=== PATIENT | male | born 1940 | race Caucasian/White ===

== ENCOUNTER 2020-01-14 14:59 | Emergency (ER) | payer MEDICARE, SELFPAY ==
--- NOTE | 2020-01-14 15:07 | XR_ITS ---
EXAMINATION: XR CHEST CLINICAL INFORMATION: Cough COMPARISON: Chest radiographs 10/24/2017, 08/05/2017. TECHNIQUE: Portable upright AP view of the chest was obtained. FINDINGS: There are postsurgical changes similar to prior studies with right upper zone surgical clips, fine left upper zone chain mamta, and bilateral linear scarring. There is also left atrial appendage clip, mediastinal clips, and sternotomy wires. There is scarring versus disc atelectasis left lateral base. Some mild coarsening of the interstitial markings is again seen. There is no lobar or segmental airspace consolidation or definite groundglass opacity. The heart is normal in size. The vascularity is normal. The hilar and mediastinal contours are unremarkable. No acute bony abnormality. XR/XR chest 1V IMPRESSION: 1. Postsurgical changes. Linear scar versus disc atelectasis left lateral base. 2. No airspace consolidation or definite groundglass opacity.
[2020-01-14 15:19] VITALS: BP 134/82; PULSE 70; RESP 17; TEMP 37.4; O2SAT 96; BMI 28.3
--- NOTE | 2020-01-14 15:54 | ED_ITS ---
HPI - URI/Sore Throat General Chief Complaint: Upper Respiratory Symptoms Stated Complaint: covid swab Time Seen by Provider: 01/14/20 15:07 Source: patient Mode of arrival: ambulatory Limitations: no limitations History of Present Illness HPI Narrative: 79-year-old with above history presenting today with complaint of states he has had a mild congestion / cough and had episode of GI upset yesterday for which he had a Tele visit visit with his primary care doctor and advised to come to get a COVID test MD elicited complaint: cough Onset (ago): day(s) Consistency: intermittent Severity: mild Description of mucous: yellow Exacerbating factors: nothing Relieving factors: nothing Associated symptoms: denies other symptoms Treatments prior to arrival: other ( Mucinex feels better) Related Data Previous Rx's Medication Instructions Recorded Xarelto 20 mg tablet 20 mg PO QPM #30 tab NS 12/30/19 benzonatate [Tessalon Perles] 100 mg PO BID PRN #14 cap 01/14/20 doxycycline monohydrate 100 mg PO BID 7 Days #14 cap 01/14/20 Allergies Allergy/AdvReac Type Severity Reaction Status Date / Time No Known Allergies Allergy Unverified 12/10/19 14:57 Review of Systems Review of Systems: Constitutional: No Weight loss, No Fever, No Chills, No Night Sweats, No Fatigue, No Malaise ENT/Mouth: No Hearing loss, No Ear Pain, No Nasal Congestion, No Sinus Pain, No Hoarseness, No sore throat, No Rhinorrhea, No Swallowing Difficulty Eyes: No Eye Pain, No Swelling, No Redness, No Foreign Body, No Discharge, No Vision Changes Cardiovascular: No Chest Pain, No SOB, No Dyspnea on Exertion, No Orthopnea, No Edema, No Palpitations Respiratory: + Cough productive with some green phlegm, No Wheezing, No Smoke Exposure, No Dyspnea Gastrointestinal: No Nausea, No Vomiting, No Diarrhea, No Constipation, No abdominal Pain, No Hematochezia, No Melena Genitourinary: no irregular bleeding, No Dysuria, No Urinary Frequency, No Hematuria, No Urinary Incontinence, No Urgency, No Flank Pain, No Urinary Flow Changes, No Hesitancy Musculoskeletal: No joint pain, No Myalgias, No Joint Swelling Skin: No Skin Lesions, No rash Neuro: No Weakness, No Numbness, No Paresthesias, No Loss of Consciousness, No Dizziness, No Headache Psych: No Social Issues Heme/Lymph: No Bruising, No Bleeding,No Lymphadenopathy Endocrine: No Polyuria, No Polydipsia, No Temperature Intolerance Yes all other systems are reviewed and are negative [facility] Past Medical History Attestation statement: The following information was validated with the patient. Surgical History (Updated 01/14/20 @ 15:24 by Melissa Anderson) H/O heart surgery History of hip surgery History of lobectomy of lung Social History Social History Smoking Status: Never smoker Use of substances other than those prescribed or required for medical reasons: No Advance Directives: No Advance Directives Information Provided: No Physical Exam Vital Signs: Vital Signs: Vital Signs Temp Pulse Resp BP Pulse Ox 01/14/20 15:19 99.3 F 70 17 134/82 96 Body Mass Index 28.3 reviewed Const: General: cooperative and healthy appearing; No acute distress or intoxicated appearing Nutritional Appearance: average body habitus Orientation/consciousness: patient oriented x3 HENMT: Head: Yes normal to inspection Ears: hearing grossly normal bilaterally Eyes: General: appearance normal, both eyes and all related structures Visual Inman: normal visual inman by confrontation Neck: Neck: Yes normal visual inspection and No tender Thyroid: Thyroid normal Chest: Chest palpation & inspection: normal inspection of the chest Resp: Effort & Inspection: normal respiratory effort Auscultation: clear to auscultation bilaterally Cardio: Jugular venous distension: no JVD Rhythm: regular rhythm GI: Inspection: Yes normal to inspection Percussion: Yes normal to percussion Auscultation: normal bowel sounds : General: Yes no CVA tenderness Back/Spine/Pelvis: Back: no CVA tenderness Skin: General skin exam: no rashes or lesions noted Neuro: General: patient oriented x3 Extrem: General: Yes normal to inspection Course Course Course Narrative: chest x-ray negative for acute consolidation COVID-19 test pending Empiric doxy Discharge precaution return follow-up instructions. MDM - URI/Sore Throat Differential Diagnosis Differential diagnosis: Likely upper respiratory infection, viral infection and bronchitis; Unlikely croup, otitis media, sinusitis, influenza and pharyngitis Medical Records Attestation: I reviewed the patient's medical records. Imaging Data Chest x-ray: Radiologist's impression: [address] [address] XRay Report Signed Patient: Anthony Goodman SRMR#: [id number] : 2Acct:[id number] Age/Sex: 79 / MADM Date: 01/14/20 Loc: HO.ED Attending Dr: Ordering Physician: Chase Chapman NP Date of Service: 01/14/20 Procedure(s): XR chest 1V Accession Number(s): [id number] cc: Chase Chapman LADLE OPERATOR~ EXAMINATION: XR CHEST CLINICAL INFORMATION: Cough COMPARISON: Chest radiographs 10/24/2017, 08/05/2017. TECHNIQUE: Portable upright AP view of the chest was obtained. FINDINGS: There are postsurgical changes similar to prior studies with right upper zone surgical clips, fine left upper zone chain mamta, and bilateral linear scarring. There is also left atrial appendage clip, mediastinal clips, and sternotomy wires. There is scarring versus disc atelectasis left lateral base. Some mild coarsening of the interstitial markings is again seen. There is no lobar or segmental airspace consolidation or definite groundglass opacity. The heart is normal in size. The vascularity is normal. The hilar and mediastinal contours are unremarkable. No acute bony abnormality. XR/XR chest 1V IMPRESSION: 1. Postsurgical changes. Linear scar versus disc atelectasis left lateral base. 2. No airspace consolidation or definite groundglass opacity. Dictated By:YEN CHEEK MD Signed By:<Electronically signed by YEN CHEEK MD in OV>01/14/20 1549 DD/ 1507 TD/TT: Bearing Grinder: FALL Discharge Plan Discharge Clinical Impression: Upper respiratory infection Patient Disposition: Home, Self-Care Instructions: Upper Respiratory Infection (ED) Additional Instructions: your chest x-ray did not show any signs of acute infection / pneumonia Your COVID test is pending Take her antibiotic as prescribed Drink plenty fluids Isolates/social distancing Return if any chest pain, shortness of breath, fever, nausea, vomiting, abdominal pain Otherwise we will call you with her COVID-19 test results if negative or positive.... Thank you Prescriptions: New doxycycline monohydrate 100 mg capsule 100 mg PO BID 7 Days Qty: 14 RF: 0 benzonatate [Tessalon Perles] 100 mg capsule 100 mg PO BID PRN (Reason: cough) Qty: 14 RF: 0 No Action Xarelto 20 mg tablet 20 mg PO QPM Qty: 30 RF: 6 Referrals: Jordan Gabriel MD [Primary Care Provider] - 1 week
== END 2020-01-14 16:35 | disposition home or self-care (01) ==
PROVIDERS: Nurse Practitioner Primary Care; Emergency Provider Emergency Medicine; PCP Internal Medicine
DX: R05 Cough (principal); Z20.828 Contact with and (suspected) exposure to other viral communicable diseases; Z79.899 Other long term (current) drug therapy
CPT/HCPCS: 71045; 87635; 99283

== ENCOUNTER → 2020-02-01 08:13 | Outpatient (REF) | payer MEDICARE, SELFPAY ==
--- NOTE | 2020-02-01 08:18 | CA_ITS ---
Transthoracic Echocardiogram Patient (Last, First, Middle): Anthony Goodman C Gender: Male Date of : 1940 Age: 79 Procedure Date: 02/01/2020 Procedure Type: Transthoracic Echocardiogram Location: OP Height: 185.42 cm Weight: 89.81 kg BSA: 2.14 m2 Heart Rate: bpm BP: 122 / 60 mmHg Social Work Assistant: Referring MD: Darryl Padilla MD Curb Attendant: Darryl Padilla MD Symptoms: HTN,DM,PAF, S/P CABG Study Quality: Good ECG Rhythm: Sinus Conclusions: - 1. Normal LV systolic function with mild LVH 2. Mildly dilated left atrium 3. Normal cardiac valvular Doppler 4. No evidence of pericardial effusion Findings Left Ventricle Normal left ventricular size and systolic function. There is mildly increased left ventricular wall thickness. The visually estimated ejection fraction is between 60-65%. There is paradoxical septal motion consistent with post operative status. Diastolic function is normal for age. Right Ventricle Normal right ventricular cavity size and systolic function. Atria The left atrium is likely dilated. There is no evidence of interatrial shunt. The right atrium is normal in size. Aortic Valve Normal aortic valve structure and function. There is no aortic valve stenosis. There is no aortic valve regurgitation. Mitral Valve There is mild anterior and posterior mitral leaflet thickening. There is mild mitral annular calcification. There is trace mitral valve regurgitation. There is no mitral valve stenosis. Pulmonic Valve The pulmonic valve was not well visualized. Tricuspid Valve Likely normal tricuspid valve structure and function. Tricuspid regurgitation envelope is inadequate for calculation of right ventricular systolic pressure. Great Vessels All visible segments of the aorta are normal in size. The pulmonary artery was not well visualized. Venous The inferior vena cava is normal in size and collapses greater than 50% with inspiration. Pericardium/Pleural There is no evidence of pericardial effusion. Prior Study Comparison No significant change compared to prior study dated: 02/11/2018. Measurements 2D Linear Measurements IVSd: 1.27 0.6-0.9/0.6-1.0 cm LVIDd: 4.33 3.9-5.3/4.2-5.9 cm LVIDd Index: 2.02 2.4-3.2/2.2-3.1 cm/m2 LVIDs: 2.77 2.0-3.6 cm LVPWd: 1.23 0.7-1.1 cm Ao Root: 3.90 2.1-3.5 cm LA Diam: 4.50 2.7-3.8/3.0-4.0 cm LAIDs Index: 2.10 1.5-2.3 cm/m2 LV Mass: 246.93 67-162/88-224 g LV Mass Index: 115.39 43-95/49-115 g/m2 LVOT Diam: 2.40 3.0+(-)1.3 cm Mitral Valve MV Pk E: 0.73 MV PK A: 0.52 MV Decel Time: 184.00 E/A: 1.40 E'Lateral: 15.30 E'Medial: 6.77 E/E' Med: 10.80 E/E' Lat: 4.80 PHT: 54.00 MVA PHT: 4.07 Decel Stone: 3.97 Aortic Valve AoV Pk Andrew: 1.35 AoV Mn Andrew: 0.86 AoV VTI: 0.28 AoV Pk Grad: 7.00 Aov Mn Grad: 4.00 CHRISTA Cont.VTI: 3.50 LVOT LVOT Pk Andrew: 1.02 LVOT Mn Andrew: 0.67 LVOT VTI: 0.22 LVOT Pk Grad: 4.00 LVOT Mn Grad: 2.00 LVOT Diam: 2.40 LVOT Area: 4.52 Diastolic Function MV Pk E: 0.73 MV Pk A: 0.52 E/A: 1.40 E'Medial: 6.77 E/E' Med: 10.80 E' Laterial: 15.30 E/E' Lat: 4.80 Great Vessels Aorta Ao Root-2D: 3.90 2.0-3.7 cm Pulmonary Valve PV Pk Andrew: 0.98 Peak PV Grad: 4.00 Updated in Other Vendor System with Status of Final Darryl Padilla MD electronically signed on 02/02/2020 11:59:06 AM with status of Final
== END ==
LOC: HO.CARD 08:13
PROVIDERS: Visit Provider Internal Medicine Cardiovascular Disease
DX: I25.10 Atherosclerotic heart disease of native coronary artery without angina pectoris (principal); I25.84 Coronary atherosclerosis due to calcified coronary lesion; I10 Essential (primary) hypertension; I48.0 Paroxysmal atrial fibrillation; E11.9 Type 2 diabetes mellitus without complications; Z95.1 Presence of aortocoronary bypass graft
CPT/HCPCS: 93306

== ENCOUNTER 2020-02-04 09:31 | Outpatient (REF) | payer MEDICARE, SELFPAY ==
[2020-02-04 10:18] LABS: Hematocrit 31.7 % (42-52); Hemoglobin 10.2 g/dl (14.0-18.0); Mean Corpuscular HGB Conc 32.2 g/dl (31.0-36.0); Mean Corpuscular Hemoglobin 28.4 pg (27.0-33.0); Mean Corpuscular Volume 88.3 fL (80-98); Mean Platelet Volume 9.8 fL (9.4-12.4); Platelet Count 311 X10*3/uL (160-400); Red Blood Count 3.59 X10*6/uL (4.60-5.80); Red Cell Distribution Width 14.8 % (11.0-16.0); White Blood Count 5.5 X10*3/uL (4.8-10.8)
[2020-02-04 11:25] LABS: Anion Gap 11 (12-20); Blood Urea Nitrogen 29 mg/dL (9-16); Calcium 9.2 mg/dL (8.4-10.2); Carbon Dioxide 24 mmol/L (22-29); Chloride 104 mmol/L (96-108); Estimated Glomerular Filt Rate 55; Glucose Random 118 mg/dL (60-115); Sodium 134 mmol/L (135-145)
== END 2020-02-04 09:32 | disposition home or self-care (01) ==
LOC: HO.LAB 09:31
PROVIDERS: PCP Internal Medicine; Visit Provider Internal Medicine Cardiovascular Disease
DX: I25.10 Atherosclerotic heart disease of native coronary artery without angina pectoris (principal); I25.84 Coronary atherosclerosis due to calcified coronary lesion
CPT/HCPCS: 36415; 80048; 85027

== ENCOUNTER → 2020-02-11 08:51 | Outpatient (BNVA) | payer MEDICARE, SELFPAY | PROVIDERS: PCP Internal Medicine; Visit Provider Internal Medicine Cardiovascular Disease | DX: I48.0 Paroxysmal atrial fibrillation (principal); I25.10 Atherosclerotic heart disease of native coronary artery without angina pectoris; I10 Essential (primary) hypertension; R25.2 Cramp and spasm; Z79.01 Long term (current) use of anticoagulants; Z79.899 Other long term (current) drug therapy | CPT/HCPCS: 99212 ==

== ENCOUNTER 2020-02-23 09:53 | Day surgery (SDC) | payer MEDICARE, SELFPAY ==
[2020-02-17 10:48] VITALS: BMI 27.3
--- NOTE | 2020-02-22 14:14 | P.CONAN_ITS ---
HPI - Anesthesia Eval Consult details Narrative: 80yo M for QI [facility] Past Medical History Medical History CAD (coronary artery disease) COPD (chronic obstructive pulmonary disease) Diabetes mellitus GERD (gastroesophageal reflux disease) History of cancer HTN (hypertension) Hyperlipidemia Paroxysmal atrial fibrillation Surgical History Surgical History H/O heart surgery History of arthroplasty of left hip History of lobectomy of lung Social History Social History Smoking Status: Never smoker Meds Allergies Allergy/AdvReac Type Severity Reaction Status Date / Time No Known Allergies Allergy Verified 02/17/20 10:42 Home Medications Medication Instructions Recorded Confirmed Type atorvastatin 80 mg tablet 80 mg PO QPM 02/11/20 02/17/20 History ferrous sulfate 325 mg (65 mg 325 mg PO QPM 02/11/20 02/17/20 History iron) tablet metformin 500 mg tablet 500 mg PO BID 02/11/20 02/17/20 History albuterol sulfate [Ventolin HFA] 2 puff INHALATION Q4-6H PRN 02/17/20 02/17/20 History cholecalciferol (vitamin D3) 25 mcg PO DAILY 02/17/20 02/17/20 History [Vitamin D3] lisinopril 10 mg PO QPM 02/17/20 02/17/20 History multivitamin 1 tab PO DAILY 02/17/20 02/17/20 History Exam Exam Date and Time: February 22, 2020 1414 Height,Weight and Vital Signs: Height 6 ft Weight 91.626 kg Pertinent Lab Results Pertinent Lab Results: Laboratory Tests 02/04/20 02/04/20 09:40 09:40 WBC 5.5 Hgb 10.2 L Hct 31.7 L Plt Count 311 Sodium 134 L Potassium 5.0 Chloride 104 Carbon Dioxide 24 BUN 29 H Creatinine 1.27 Narrative Narrative: ECHO 02/01/20: 1. Normal LV systolic function with mild LVH 2. Mildly dilated left atrium 3. Normal cardiac valvular Doppler 4. No evidence of pericardial effusion EKG 11/2019: NSR with junctional escape Assessment and Plan Assessment Anesthesia Assessment: Chart Reviewed
--- NOTE | 2020-02-23 08:53 | CA_ITS ---
See Transesophageal Echo (QI) physician report MTDD
[2020-02-23 10:10] LABS: Glucose, Whole Blood 82 mg/dL (60-115)
[2020-02-23] MEDS: Lactated Ringers 1,000 ML 50 ML IVCONT (10:26)
[2020-02-23 10:27] VITALS: BP 161/38; PULSE 62; RESP 18; TEMP 36.2; O2SAT 97
[2020-02-23 12:14] VITALS: BP 114/47; PULSE 46; RESP 15; TEMP 36.2; O2SAT 100
[2020-02-23 12:29] VITALS: BP 140/57; PULSE 50; RESP 16; O2SAT 99
[2020-02-23 12:44] VITALS: BP 143/60; PULSE 51; RESP 16; O2SAT 99
--- NOTE | 2020-02-23 16:24 | HO.TEE ---
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 Patient was explained the risks, benefits, alternatives and 2nd opinion to procedure. He agreed to proceed with the procedure Anesthesia:: general Details of Procedure:: after obtaining full informed consent patient brought to the OR suite in a fasting condition. Patient was then given GA by Anesthesia Team. Continuously monitored during this time. A QI probe was then introduced into the gastric and then into the esophageal cavity. Images obtained in the standard format. Patient tolerated the procedure well. Complications:: None Conclusions:: 1. normal LV systolic function with at least grade 2 diastolic dysfunction 2. Biatrial enlargement, left greater than right with suggestion of left atrial myopathy 3. 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 No intracardiac thrombi, masses or vegetations 5. No significant abnormalities of cardiac valvular Doppler 6. No intra cardiac shunting 7. Normal pericardium 8. Significant atherosclerotic changes in the descending thoracic aorta. Recommendations:: Based upon above finding, patient will continue current oral anticoagulant therapy as he remains at risk for stroke due to residual left atrial appendage pouch. This was discussed with both patient patient's over the phone. Will discuss with Watchman team at [facility] to see if he would be a candidate for Watchman device placement. Findings Left Ventricle:: left ventricle is of normal size. Left ventricular systolic function is normal with LVEF of 60 65%. There are no left ventricular clots or masses noted. There are no significant regional wall motion abnormalities noted. The LV diastolic function is consistent with at least grade 2 diastolic dysfunction. Right Ventricle:: Right ventricle is of normal size with normal contractile function. There is no evidence of ventricular septal defect Atria:: left atrium is at least moderately enlarged. 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 The left upper and lower as well as right upper and lower pulmonary vein drain normally into the left atrium. There is a distinct left atrial pouch noted with markedly reduced atrial ejection velocity. There are no clots seen within this pouch. There is mild smoke formation seen in the left atrium, otherwise no clots or masses seen within the left atrium. Right atrium is also moderately enlarged. The right atrial appendage is small and there is no clear clot formation seen in the right atrium. The IVC drains normally into the right atrium. There is significant lipomatous hypertrophy of the interatrial septum, with no evidence of atrial shunting. Mitral Valve:: Mitral valve is mildly thickened. There are no masses, vegetations or clots attached to the mitral valve. There is trace to mild mitral regurgitation noticed. There is no evidence of mitral stenosis. There is mild mitral annular calcification noted Aortic Valve: aortic valve is trileaflet, minimally thickened. The aortic valve discussion is within normal limits. There are no masses, vegetations or clots attached to the aortic valve. There is no significant aortic stenosis or aortic regurgitation. They inter valvular fibrosa is within normal limits. Tricuspid Valve:: Tricuspid while is of normal morphology with mild tricuspid regurgitation. There are no masses or vegetations that she had a tricuspid valve. Calculated RV systolic pressure appeared to be within normal limits. Pulmonic Valve:: Pulmonic valve was not well visualized. There is no significant regurgitation noted. Aorta:: The ascending thoracic aorta is of normal size. There is mild atherosclerotic changes noted. The descending and transverse thoracic aorta also of normal size with significant thickened atherosclerotic finding noted in the descending thoracic aorta. Pericardium:: Pericardium appears to be within normal limits.
== END 2020-02-23 13:32 | disposition home or self-care (01) ==
PROVIDERS: PCP Internal Medicine; Visit Provider Internal Medicine Cardiovascular Disease
PROC: (CPT 93312; principal; 2020-02-23 11:10)
DX: I48.0 Paroxysmal atrial fibrillation (principal); I25.10 Atherosclerotic heart disease of native coronary artery without angina pectoris; Z95.1 Presence of aortocoronary bypass graft; R25.2 Cramp and spasm; E11.9 Type 2 diabetes mellitus without complications; I10 Essential (primary) hypertension; J44.9 Chronic obstructive pulmonary disease, unspecified; Z79.01 Long term (current) use of anticoagulants; Z79.899 Other long term (current) drug therapy
CPT/HCPCS: 82947; 93312

== ENCOUNTER 2020-02-25 09:47 | Outpatient (REF) | payer MEDICARE, SELFPAY ==
--- NOTE | 2020-02-25 09:52 | US_ITS ---
EXAMINATION: BILATERAL LOWER EXTREMITY DUPLEX DOPPLER ARTERIAL EVALUATION CLINICAL INFORMATION: Bilateral cramping/spasm. COMPARISON: None TECHNIQUE: Real-time ultrasound and Doppler techniques (integrating B-mode 2D vascular images, Doppler spectral analysis and color flow Doppler imaging) were utilized to interrogate the lower extremities bilaterally. FINDINGS: RIGHT LOWER EXTREMITY: Calcified plaque is seen throughout the vessels. Common femoral artery demonstrates normal triphasic waveform with peak systolic velocity of 191 cm/s. The profunda femoral artery demonstrates a triphasic waveform with peak systolic velocity of 157 cm/s. The proximal superficial femoral artery demonstrates a triphasic waveform with peak systolic velocity of 163 cm/s. The mid superficial femoral artery demonstrates a biphasic waveform with peak systolic velocity of 126 cm/s. The distal superficial femoral artery demonstrates a biphasic waveform with peak systolic velocity of 90 cm/s. Popliteal artery has a biphasic waveform with peak systolic velocity of 99 cm/s. Posterior tibial artery has a biphasic waveform with peak systolic velocity of 116 cm/s. LEFT LOWER EXTREMITY: Calcified plaque is present throughout the vessels. Common femoral artery has a triphasic waveform with peak systolic velocity of 314 cm/s. The profunda femoral artery has a triphasic waveform with peak systolic velocity of 111 cm/s with spectral broadening. The proximal superficial femoral artery has a biphasic waveform with peak systolic velocity of 266 cm/s. The mid superficial femoral artery has a biphasic waveform with peak systolic velocity of 119 cm/s. The distal superficial femoral artery has a biphasic waveform with peak systolic velocity of 112 cm/s. The popliteal artery has a triphasic waveform with peak systolic velocity of 105 cm/s. Posterior tibial artery has a biphasic waveform with peak systolic velocity of 22 cm/s. US/US arterial duplex LE BI IMPRESSION: Atherosclerotic disease with calcified plaque bilaterally. Findings suspicious for hemodynamically significant inflow stenoses within the iliac vessels causing elevation of velocities within the common femoral arteries left greater than right. Hemodynamically significant stenosis at the left common femoral artery bifurcation. For better evaluation of the above findings if intervention is being considered, CT or MR angiography would be of help.
== END 2020-02-25 09:48 | disposition home or self-care (01) ==
LOC: HO.US 09:47
PROVIDERS: Visit Provider Internal Medicine Cardiovascular Disease
DX: I25.10 Atherosclerotic heart disease of native coronary artery without angina pectoris (principal); R25.2 Cramp and spasm
CPT/HCPCS: 93925

== ENCOUNTER → 2020-03-11 08:53 | Outpatient (BNVA) | payer MEDICARE, SELFPAY | PROVIDERS: PCP Internal Medicine; Visit Provider Internal Medicine Cardiovascular Disease | DX: I48.0 Paroxysmal atrial fibrillation (principal); I25.10 Atherosclerotic heart disease of native coronary artery without angina pectoris; I73.9 Peripheral vascular disease, unspecified | CPT/HCPCS: 99212 ==

== ENCOUNTER → 2020-04-11 09:42 | Outpatient (BNVA) | payer MEDICARE, SELFPAY | PROVIDERS: PCP Internal Medicine; Visit Provider Internal Medicine Cardiovascular Disease | DX: D64.9 Anemia, unspecified (principal); I48.0 Paroxysmal atrial fibrillation; I25.10 Atherosclerotic heart disease of native coronary artery without angina pectoris | CPT/HCPCS: Q3014 ==

== ENCOUNTER 2020-05-10 10:14 | Outpatient (REF) | payer MEDICARE, SELFPAY ==
[2020-05-10 10:26] LABS: MANUAL DIFF FLAG NO
[2020-05-10 10:40] LABS: Basophils Percent Auto 0.5 % (0-2); Eosinophils Absolute Auto 0.4 X10*3/uL (0.0-0.4); Eosinophils Percent Auto 5.1 % (0-4); Hematocrit 33.8 % (42-52); Hemoglobin 10.5 g/dl (14.0-18.0); Imm Gran Abs Auto 0.01 X10*3/uL (0.00-0.03); Imm Gran Pct Auto 0.1 % (0.0-0.4); Lymphocytes Absolute Auto 1.9 X10*3/uL (1.2-4.9); Lymphocytes Percent Auto 26.2 % (20-40); Mean Corpuscular HGB Conc 31.1 g/dl (31.0-36.0); Mean Corpuscular Hemoglobin 27.3 pg (27.0-33.0); Mean Corpuscular Volume 87.8 fL (80-98); Mean Platelet Volume 10.2 fL (9.4-12.4); Monocytes Absolute Auto 0.7 X10*3/uL (0.1-1.2); Monocytes Percent Auto 9.2 % (2-11); Neutrophils Absolute Auto 4.3 X10*3/uL (2.0-8.3); Neutrophils Percent Auto 58.9 % (45-73); Platelet Count 325 X10*3/uL (160-400); Red Blood Count 3.85 X10*6/uL (4.60-5.80); Red Cell Distribution Width 14.7 % (11.0-16.0); White Blood Count 7.4 X10*3/uL (4.8-10.8)
[2020-05-10 11:10] LABS: Cholesterol 124 mg/dL; Glucose Fasting 95 mg/dL (60-99); HDL Cholesterol 45 mg/dL; Iron 54 mcg/dL (45-160); LDL Cholesterol Calculated 64 mg/dl; Percent Iron Saturation 17 % (15-50); Total Iron Binding Capacity 321 mcg/dL (228-428); Triglycerides 75 mg/dL; Unsaturated Iron Binding 267 ug/dL
[2020-05-10 11:15] LABS: Estimated Average Glucose 120 mg/dL; Hemoglobin A1c % 5.8 %
[2020-05-10 11:16] LABS: Reflex LDLD? No
== END 2020-05-10 10:15 | disposition home or self-care (01) ==
LOC: HO.LNP 10:14
PROVIDERS: PCP Internal Medicine; Visit Provider Internal Medicine
DX: E11.9 Type 2 diabetes mellitus without complications (principal); E78.00 Pure hypercholesterolemia, unspecified; D50.9 Iron deficiency anemia, unspecified
CPT/HCPCS: 80061; 82947; 83036; 83540; 85025

== ENCOUNTER 2020-08-11 09:17 | Outpatient (REF) | payer MEDICARE, SELFPAY ==
[2020-08-11 09:20] LABS: MANUAL DIFF FLAG NO
[2020-08-11 09:32] LABS: Basophils Absolute Auto 0.1 X10*3/uL (0.0-0.2); Basophils Percent Auto 0.9 % (0-2); Eosinophils Absolute Auto 0.4 X10*3/uL (0.0-0.4); Hemoglobin 9.6 g/dl (14.0-18.0); Imm Gran Abs Auto 0.02 X10*3/uL (0.00-0.03); Imm Gran Pct Auto 0.3 % (0.0-0.4); Lymphocytes Absolute Auto 1.6 X10*3/uL (1.2-4.9); Lymphocytes Percent Auto 23.5 % (20-40); Mean Corpuscular Hemoglobin 27.1 pg (27.0-33.0); Mean Corpuscular Volume 87.6 fL (80-98); Mean Platelet Volume 10.2 fL (9.4-12.4); Monocytes Absolute Auto 0.7 X10*3/uL (0.1-1.2); Monocytes Percent Auto 10.5 % (2-11); Neutrophils Percent Auto 58.8 % (45-73); Platelet Count 305 X10*3/uL (160-400); Red Blood Count 3.54 X10*6/uL (4.60-5.80); White Blood Count 6.9 X10*3/uL (4.8-10.8)
[2020-08-11 10:04] LABS: Iron 38 mcg/dL (45-160); Percent Iron Saturation 14 % (15-50); Total Iron Binding Capacity 280 mcg/dL (228-428); Unsaturated Iron Binding 242 ug/dL
== END 2020-08-11 09:18 | disposition home or self-care (01) ==
LOC: HO.LNP 09:17
PROVIDERS: Visit Provider Internal Medicine
DX: Z13.89 Encounter for screening for other disorder (principal)
CPT/HCPCS: 83540; 85025

== ENCOUNTER 2020-08-13 21:48 | Inpatient (IN) | payer MEDICARE, SELFPAY ==
--- NOTE | ~2020-08-13 | MR_ITS ---
EXAMINATION: MR ABDOMEN WITHOUT CONTRAST CLINICAL INFORMATION: Gallstone pancreatitis COMPARISON: CT from 08/14/2020 TECHNIQUE: MR abdomen is performed without gadolinium contrast. Heavily T2-weighted sequence performed for MRCP acquisition. FINDINGS: LUNG BASES: Minimal right basilar atelectasis noted. Small hiatal hernia suspected. LIVER, GALLBLADDER, AND BILIARY TREE: The liver is normal in size, smooth in contour, and normal in signal. Mild central intrahepatic biliary ductal dilatation. Multiple T2 bright lesions are seen about the hepatic parenchyma. For instance, along the posterior margin of the right lobe. The lack of IV contrast limits full evaluation. These could represent cysts and/or hemangiomas. Multiple stones are seen in the gallbladder lumen with sludge also present. As seen on the previous CT, there is wall thickening and edema. Irregularity at the gallbladder fundal wall. The common bile duct is at the upper limit of normal measuring 0.7 cm. No definite ductal filling defect identified on MRCP imaging. The focus of low signal on series 6 image 20 within the lower common bile duct is likely artifactual as this is not repeated on other series. PANCREAS: The pancreatic parenchyma is homogenous. No pancreatic ductal dilatation. No significant surrounding inflammatory changes. Minimal stranding noted adjacent to the duodenum. There is a duodenal diverticulum extending off of the second portion of the duodenum. SPLEEN: Unremarkable. ADRENAL GLANDS: Unremarkable. KIDNEYS AND URETERS: The kidneys are normal in size and shape. No hydronephrosis. No perinephric stranding. GASTROINTESTINAL TRACT: No obstruction. No ascites. Duodenal diverticulum off of the second portion of the duodenum with an air-fluid level. This measures 2.8 cm in AP dimension. This abuts the common bile duct. ABDOMINAL WALL: No significant hernia is appreciated. LYMPH NODES: No lymphadenopathy. VASCULAR: Normal caliber aorta. OSSEOUS STRUCTURES: Marrow signal normal. MR/MR MRCP IMPRESSION: Cholelithiasis with inflammatory changes of the gallbladder, concerning for acute cholecystitis. Minimal inflammatory stranding near the duodenum, with the pancreas appearing otherwise normal. This could be associated with pancreatitis/duodenitis. Wall the bile ducts are mildly prominent, there is no ductal filling defect identified.
--- NOTE | ~2020-08-13 | XR_ITS ---
EXAMINATION: XR CHEST CLINICAL INFORMATION: Cough COMPARISON: 01/14/2020 TECHNIQUE: Frontal view of the chest was obtained. FINDINGS: There are new airspace opacities throughout the left midlung and left lung base and possibly in the right midlung as well. Right perihilar surgical clips and an atrial appendage clip are again noted. Sternotomy wires and mediastinal vascular clips are noted. The cardiac silhouette is similar to the prior study. Chronic blunting of the right costophrenic angle. No pneumothorax. XR/XR chest 1V IMPRESSION: New airspace opacities throughout the left midlung and left lung base, possibly in the right midlung as well, concerning for multifocal infection.
--- NOTE | ~2020-08-13 | US_ITS ---
EXAMINATION: US ABDOMEN LIMITED CLINICAL INFORMATION: Abdominal pain right upper quadrant. COMPARISON: None TECHNIQUE: Real-time imaging of the right upper quadrant abdominal viscera. FINDINGS: PANCREAS: The visualized proximal portion of the pancreas is unremarkable. The distal portion is obscured secondary to overlying bowel gas. LIVER: The liver is normal in size. The liver contour is normal. Parenchymal echogenicity is normal. No focal hepatic lesion. There is no intrahepatic biliary duct dilatation seen. GALLBLADDER: Gallstones are identified. Gallbladder wall thickness is at the upper limits of normal. No pericholecystic fluid is seen. Right upper quadrant tenderness was reported during the exam. COMMON BILE DUCT: Normal in caliber measuring 0.6 cm in diameter. RIGHT KIDNEY: No hydronephrosis. No renal calculi or focal parenchymal lesions. The kidney measures 10.4 cm in maximum dimension. FREE FLUID: None. US/US abdomen limited IMPRESSION: Cholelithiasis. Though no significant gallbladder wall thickening is present, right upper quadrant tenderness was reported during the exam. If there is clinical concern for acute cholecystitis, assessment with a nuclear medicine hepatobiliary scan may be helpful.
--- NOTE | ~2020-08-13 | CT_ITS ---
EXAMINATION: CT CHEST WITHOUT CONTRAST CLINICAL INFORMATION: Cough, x-ray multifocal opacities COMPARISON: Chest x-ray 08/13/2020 TECHNIQUE: Multidetector volumetric CT imaging of the chest was done. Axial MIP volume rendering provided. Sagittal and coronal reformatted images were obtained. This CT examination was performed using dose optimization techniques as appropriate, variously including the following: *Automated exposure control *Adjustment of mA and/or kV according to patient size (this includes techniques or standardized protocols for targeted exams where dose is matched to indication/reason for exam; i.e. extremities or head) *Use of iterative reconstruction technique DLP: 394 mGy-cm FINDINGS: LUNGS: Status post right upper lobectomy. Suture lines noted in the left upper lobe, with some adjacent curvilinear opacity which is unchanged from prior CT of 09/01/2019. Regions of peripheral opacity in the lower lobes are most suggestive of atelectasis. No additional consolidation seen. Some debris is noted in the trachea. MEDIASTINUM: The visualized thyroid gland is unremarkable. There are subcentimeter mediastinal lymph nodes within the range of normal variation. Cardiac size is within normal limits; no pericardial effusion. There is atherosclerotic calcification along the aorta. Left atrial appendage clip is noted. Coronary artery calcifications are present. Patient is status post CABG. PLEURA: There is no pleural effusion. No pleural mass or thickening. AXILLA: No lymphadenopathy. UPPER ABDOMEN: Cholelithiasis is noted. OSSEOUS STRUCTURES: Status post sternotomy. Degenerative changes are noted in the spine. CT/CT chest wo con IMPRESSION: 1. Mild peripheral bibasilar opacities most suggestive of atelectasis. No additional consolidation. 2. Postoperative changes from prior right upper lobectomy and partial left upper lobe resection, similar in appearance to 09/01/2019. 3. Cholelithiasis, with mild gallbladder wall prominence. This will be better assessed on abdominal ultrasound.
--- NOTE | ~2020-08-13 | CT_ITS ---
EXAMINATION: CT ABDOMEN AND PELVIS WITHOUT CONTRAST CLINICAL INFORMATION: Right upper quadrant pain COMPARISON: Ultrasound and CT chest from earlier today TECHNIQUE: Multidetector volumetric imaging was performed from the superior aspect of the liver through the pubic symphysis. Sagittal and coronal reformatted images were obtained on the technologist's workstation. This CT examination was performed using dose optimization techniques as appropriate, variously including the following: *Automated exposure control *Adjustment of mA and/or kV according to patient size (this includes techniques or standardized protocols for targeted exams where dose is matched to indication/reason for exam; i.e. extremities or head) *Use of iterative reconstruction technique DLP: 686 mGy-cm FINDINGS: LUNG BASES: The visualized lung bases are unremarkable. LIVER, GALLBLADDER, AND BILIARY TREE: The liver is normal in size, shape, and attenuation. No biliary ductal dilatation is present. Redemonstrated cholelithiasis with prominent gallbladder wall. PANCREAS: There is mild stranding adjacent to the pancreas and proximal duodenum. SPLEEN: Unremarkable. ADRENAL GLANDS: Unremarkable. KIDNEYS AND URETERS: The kidneys are normal in size, shape, and attenuation. Vascular calcification is noted in the renal tobi. No hydronephrosis, hydroureter, or obstructing calculi seen. Nonspecific bilateral perinephric stranding. BLADDER: Unremarkable. GASTROINTESTINAL TRACT: Colonic diverticulosis is noted. The small and large bowel are otherwise unremarkable without evidence of obstruction or pericolonic inflammatory change. There is prominence of submucosal fat within some segments of the colon suggesting sequelae of prior inflammation. The appendix is unremarkable. No free fluid or free air is seen. ABDOMINAL WALL: Bilateral fat-containing inguinal hernias. LYMPH NODES: Normal. VASCULAR: There is atherosclerotic calcification along the aorta and iliac arteries. PELVIC VISCERA: The prostate gland is enlarged, measuring 5.4 cm in transverse diameter. OSSEOUS STRUCTURES: Partially visualized left total hip arthroplasty hardware. Degenerative changes are noted in the spine. CT/CT abdomen pelvis wo con IMPRESSION: 1. Mild stranding adjacent to the pancreas and proximal duodenum, potentially secondary to pancreatitis. Correlation with laboratory values is recommended. 2. Cholelithiasis with prominent gallbladder wall. As previously noted, if there is clinical concern for acute cholecystitis this could be further assessed with nuclear medicine hepatobiliary scan.
[2020-08-13 21:59] VITALS: BP 128/45; BP 128/46; PULSE 84; PULSE 85; RESP 18; TEMP 37.8; O2SAT 93; O2SAT 94; BMI 31.6
--- NOTE | 2020-08-13 22:05 | ECG_ITS ---
Test Reason : WEAKNESS Blood Pressure : / mmHG Vent. Rate : 078 BPM Atrial Rate : 080 BPM P-R Int : 000 ms QRS Dur : 094 ms QT Int : 418 ms P-R-T Axes : 000 069 059 degrees QTc Int : 476 ms Normal sinus rhythm Incomplete right bundle branch block Abnormal ECG When compared with ECG of 25-OCT-2017 15:17, Incomplete right bundle branch block is now present Referred By: Edilia Fitzgerald Electronically Signed By:LAURA MARRUFO MD
--- NOTE | 2020-08-13 22:05 | ED.WEAKNESS ---
HPI - Weakness General Chief complaint: Weakness Stated complaint: WEAKNESS Time Seen by Provider: 08/13/20 22:04 Source: patient Mode of arrival: EMS History of Present Illness HPI Narrative: This is a 80-year-old male with significant past medical history of hypertension, diabetes, COPD, and CAD who presents via EMS after stating that he when out to dinner with his they had ordered some drinks he began to feel ill and he describes it as ?just not feeling well? and then went home where he had nausea with multiple episodes of dry heaving and identifies sharp/crampy lower pelvic pain that was not radiating into either lower extremity and also had a couple of large diarrhea bowel movements without blood. Patient is currently on Xarelto. He states he now feels a lot better and had been in his usual state of health before this onset. He denies any past abdominal surgical history. Related Data Home Medications Medication Instructions Recorded Confirmed atorvastatin 1 tab PO DAILY 08/14/20 08/14/20 lisinopril 1 tab PO DAILY 08/14/20 08/14/20 metformin 1 tab PO BID 08/14/20 08/14/20 rivaroxaban [Xarelto] 1 tab PO QPM 08/14/20 08/14/20 Allergies Allergy/AdvReac Type Severity Reaction Status Date / Time No Known Allergies Allergy Verified 02/17/20 10:42 Review of Systems Review of Systems: Pertinent positives and negatives as stated in HPI 10 point review of systems is otherwise negative. [facility] Past Medical History Source: nursing notes reviewed Medical History CAD (coronary artery disease) COPD (chronic obstructive pulmonary disease) Diabetes mellitus GERD (gastroesophageal reflux disease) History of cancer HTN (hypertension) Hyperlipidemia Paroxysmal atrial fibrillation PVD (peripheral vascular disease) Surgical History H/O heart surgery History of arthroplasty of left hip History of lobectomy of lung Social History Social History Alcohol intake: never Smoking Status: Never smoker Use of substances other than those prescribed or required for medical reasons: No Advance Directives: No Advance Directives Information Provided: Yes Physical Exam Vital Signs: Vital Signs: Last Vital Signs Temp 100.4 F 08/14/20 00:00 Pulse 74 08/14/20 02:00 Resp 18 08/14/20 02:00 BP 139/89 08/14/20 02:00 Pulse Ox 100 08/14/20 02:00 Body Mass Index 31.6 VITAL SIGNS: Reviewed. GENERAL: Well developed, well nourished, in no acute distress. HEAD: Normocephalic/atraumatic, EYES: PERRLA, EOMI NOSE: Nares patent bilateral OROPHARYNX: no oral lesions noted, posterior pharynx clear LUNGS: Normal breath sounds. No adventitious sounds or accessory muscle use. SpO2<94> CARDIOVASCULAR: Regular rate and rhythm without noted murmurs, no JVD or lower extremity edema. ABDOMEN: Soft, non-tender, non-distended with bowel sounds, symmetrical femoral/popliteal/DP/PT pulses MUSCULOSKELETAL: No tenderness, deformities, or effusions noted on gross inspection. EXTREMITIES: No cyanosis, clubbing or edema. SKIN: Inspection of the skin reveals no rashes NEUROLOGIC: Alert and oriented x 4. Strength and sensation to light touch were grossly intact x 4. Course Course Course Narrative: 80-year-old male with history and clinical presentation suggestive of possible diverticulitis versus gastroenteritis. Patient received sepsis fluids as well as antibiotics. On review of all investigations patient has sepsis with possible hepatobiliary etiology given LFTs and significant leukocytosis. Although a chest x-ray initially read as multifocal opacities follow-up CT scan of the chest without contrast suggesting this is primarily atelectasis. This case was discussed with the inpatient hospitalist team who is agreeable for admission and further workup and evaluation. MDM - Weakness Lab Data Result diagrams: 08/13/20 23:06 08/13/20 23:06 Labs: Lab Results 08/13/20 08/13/20 08/13/20 Range/Units 22:18 23:06 23:06 WBC 18.1 H (4.8-10.8) X10*3/uL RBC 3.74 L (4.60-5.80) X10*6/uL Hgb 10.3 L (14.0-18.0) g/dl Hct 31.7 L (42-52) % MCV 84.8 (80-98) fL MCH 27.5 (27.0-33.0) pg MCHC 32.5 (31.0-36.0) g/dl RDW 15.1 (11.0-16.0) % Plt Count 322 (160-400) X10*3/uL MPV 9.7 (9.4-12.4) fL Immature Gran % (Auto) 0.4 (0.0-0.4) % Neut % (Auto) 86.8 H (45-73) % Lymph % (Auto) 2.5 L (20-40) % Caldwell % (Auto) 10.0 (2-11) % Eos % (Auto) 0.1 (0-4) % Baso % (Auto) 0.2 (0-2) % Lymph # (Auto) 0.5 L (1.2-4.9) X10*3/uL Caldwell # (Auto) 1.8 H (0.1-1.2) X10*3/uL Eos # (Auto) 0.0 (0.0-0.4) X10*3/uL Baso # (Auto) 0.0 (0.0-0.2) X10*3/uL Abs Immat Gran (auto) 0.07 H (0.00-0.03) X10*3/uL Absolute Neuts (auto) 15.7 H (2.0-8.3) X10*3/uL Absolute Nucleated RBC 0.000 (0.0-0.012) X10*3/uL Nucleated RBC % (auto) 0.0 (0.0-0.2) /100WBC Smear Tech's Comments VERIFIED PT (10.8-13.0) SEC INR (0.9-1.1) Sodium 140 (135-145) mmol/L Potassium 3.9 (3.3-5.1) mmol/L Chloride 105 (96-108) mmol/L Carbon Dioxide 20 L (22-29) mmol/L Anion Gap 19 (12-20) BUN 31 H (9-16) mg/dL Creatinine 2.43 H (0.5-1.4) mg/dL Estim Creat Clear Calc 26.1 Estimated GFR 26 POC Glucose 88 (60-115) mg/dL Random Glucose 96 (60-115) mg/dL Lactic Acid (0.5-2.0) mmol/L Calcium 9.4 (8.4-10.2) mg/dL Total Bilirubin 2.9 H (0.0-1.0) mg/dL AST 434 H (5-37) U/L ALT 443 H (0-40) U/L Alkaline Phosphatase 224 H (39-117) U/L B-Natriuretic Peptide (<100) pg/mL Total Protein 6.8 (6.5-8.0) g/dL Albumin 4.2 (3.5-5.0) g/dL COVID-19 (LILI) (Negative) COVID-19 Clin Com 08/13/20 08/13/20 08/13/20 Range/Units 23:06 23:06 23:06 WBC (4.8-10.8) X10*3/uL RBC (4.60-5.80) X10*6/uL Hgb (14.0-18.0) g/dl Hct (42-52) % MCV (80-98) fL MCH (27.0-33.0) pg MCHC (31.0-36.0) g/dl RDW (11.0-16.0) % Plt Count (160-400) X10*3/uL MPV (9.4-12.4) fL Immature Gran % (Auto) (0.0-0.4) % Neut % (Auto) (45-73) % Lymph % (Auto) (20-40) % Caldwell % (Auto) (2-11) % Eos % (Auto) (0-4) % Baso % (Auto) (0-2) % Lymph # (Auto) (1.2-4.9) X10*3/uL Caldwell # (Auto) (0.1-1.2) X10*3/uL Eos # (Auto) (0.0-0.4) X10*3/uL Baso # (Auto) (0.0-0.2) X10*3/uL Abs Immat Gran (auto) (0.00-0.03) X10*3/uL Absolute Neuts (auto) (2.0-8.3) X10*3/uL Absolute Nucleated RBC (0.0-0.012) X10*3/uL Nucleated RBC % (auto) (0.0-0.2) /100WBC Smear Tech's Comments PT 16.8 H (10.8-13.0) SEC INR 1.4 H (0.9-1.1) Sodium (135-145) mmol/L Potassium (3.3-5.1) mmol/L Chloride (96-108) mmol/L Carbon Dioxide (22-29) mmol/L Anion Gap (12-20) BUN (9-16) mg/dL Creatinine (0.5-1.4) mg/dL Estim Creat Clear Calc Estimated GFR POC Glucose (60-115) mg/dL Random Glucose (60-115) mg/dL Lactic Acid 1.7 (0.5-2.0) mmol/L Calcium (8.4-10.2) mg/dL Total Bilirubin (0.0-1.0) mg/dL AST (5-37) U/L ALT (0-40) U/L Alkaline Phosphatase (39-117) U/L B-Natriuretic Peptide 83 (<100) pg/mL Total Protein (6.5-8.0) g/dL Albumin (3.5-5.0) g/dL COVID-19 (LILI) (Negative) COVID-19 Clin Com 08/13/20 Range/Units 23:39 WBC (4.8-10.8) X10*3/uL RBC (4.60-5.80) X10*6/uL Hgb (14.0-18.0) g/dl Hct (42-52) % MCV (80-98) fL MCH (27.0-33.0) pg MCHC (31.0-36.0) g/dl RDW (11.0-16.0) % Plt Count (160-400) X10*3/uL MPV (9.4-12.4) fL Immature Gran % (Auto) (0.0-0.4) % Neut % (Auto) (45-73) % Lymph % (Auto) (20-40) % Caldwell % (Auto) (2-11) % Eos % (Auto) (0-4) % Baso % (Auto) (0-2) % Lymph # (Auto) (1.2-4.9) X10*3/uL Caldwell # (Auto) (0.1-1.2) X10*3/uL Eos # (Auto) (0.0-0.4) X10*3/uL Baso # (Auto) (0.0-0.2) X10*3/uL Abs Immat Gran (auto) (0.00-0.03) X10*3/uL Absolute Neuts (auto) (2.0-8.3) X10*3/uL Absolute Nucleated RBC (0.0-0.012) X10*3/uL Nucleated RBC % (auto) (0.0-0.2) /100WBC Smear Tech's Comments PT (10.8-13.0) SEC INR (0.9-1.1) Sodium (135-145) mmol/L Potassium (3.3-5.1) mmol/L Chloride (96-108) mmol/L Carbon Dioxide (22-29) mmol/L Anion Gap (12-20) BUN (9-16) mg/dL Creatinine (0.5-1.4) mg/dL Estim Creat Clear Calc Estimated GFR POC Glucose (60-115) mg/dL Random Glucose (60-115) mg/dL Lactic Acid (0.5-2.0) mmol/L Calcium (8.4-10.2) mg/dL Total Bilirubin (0.0-1.0) mg/dL AST (5-37) U/L ALT (0-40) U/L Alkaline Phosphatase (39-117) U/L B-Natriuretic Peptide (<100) pg/mL Total Protein (6.5-8.0) g/dL Albumin (3.5-5.0) g/dL COVID-19 (LILI) Negative (Negative) COVID-19 Clin Com See Note ECG Data Attestation: I personally reviewed and interpreted this ECG as follows: Prior ECG tracings: available for review (10/25/2017 no acute changes on comparison) Interpretation: Normal sinus rhythm, HR-77, no evidence of acute ischemia, VT/QRS/QTC are within normal limits. Discharge Plan Discharge Clinical Impression: Sepsis, Abdominal pain, GARTH (acute kidney injury) Patient Disposition: Admitted As Inpatient Prescriptions: No Action metformin 500 mg tablet 1 tab PO BID RF: 0 atorvastatin 80 mg tablet 1 tab PO DAILY RF: 0 lisinopril 10 mg tablet 1 tab PO DAILY RF: 0 Xarelto 20 mg tablet 1 tab PO QPM RF: 0
[2020-08-13 22:23] LABS: Glucose, Whole Blood 88 mg/dL (60-115)
[2020-08-13 23:17] LABS: Basophils Percent Auto 0.2 % (0-2); Eosinophils Percent Auto 0.1 % (0-4); Hematocrit 31.7 % (42-52); Hemoglobin 10.3 g/dl (14.0-18.0); Imm Gran Abs Auto 0.07 X10*3/uL (0.00-0.03); Imm Gran Pct Auto 0.4 % (0.0-0.4); Lymphocytes Absolute Auto 0.5 X10*3/uL (1.2-4.9); Lymphocytes Percent Auto 2.5 % (20-40); MANUAL DIFF FLAG SCAN; Mean Corpuscular HGB Conc 32.5 g/dl (31.0-36.0); Mean Corpuscular Hemoglobin 27.5 pg (27.0-33.0); Mean Corpuscular Volume 84.8 fL (80-98); Mean Platelet Volume 9.7 fL (9.4-12.4); Monocytes Absolute Auto 1.8 X10*3/uL (0.1-1.2); Neutrophils Absolute Auto 15.7 X10*3/uL (2.0-8.3); Neutrophils Percent Auto 86.8 % (45-73); Platelet Count 322 X10*3/uL (160-400); Red Blood Count 3.74 X10*6/uL (4.60-5.80); Red Cell Distribution Width 15.1 % (11.0-16.0); SCAN SMEAR FLAG 1; White Blood Count 18.1 X10*3/uL (4.8-10.8)
[2020-08-13 23:24] LABS: INTERNATIONAL NORM RATIO 1.4 (0.9-1.1); Prothrombin Time 16.8 SEC (10.8-13.0)
[2020-08-13 23:35] LABS: Lactic Acid 1.7 mmol/L (0.5-2.0)
[2020-08-13 23:43] LABS: B Type Natriuretic Peptide 83 pg/mL (<100)
[2020-08-13 23:47] LABS: SLIDE REVIEW VERIFIED
[2020-08-13] MEDS: Piperacillin Sodium/Tazobactam 3.375 GM in 0.9 % Sodium Chloride 50 ML IV (23:48)
[2020-08-13 23:49] VITALS: BP 90/40; PULSE 65; RESP 16; TEMP 36.7; O2SAT 94
[2020-08-14] VITALS (9 sets, daily range): BP systolic 104–166; BP diastolic 48–89; PULSE 58–74; RESP 16–18; TEMP 37.2–38; O2SAT 95–100
[2020-08-14 00:26] LABS: COVID-19 Test Negative (Negative); IDNOW Serial# 9DD0AD1C
[2020-08-14 00:42] LABS: Alanine Aminotransferase 443 U/L (0-40); Albumin Level 4.2 g/dL (3.5-5.0); Alkaline Phosphatase 224 U/L (39-117); Anion Gap 19 (12-20); Aspartate Amino Transferase 434 U/L (5-37); Bilirubin Total 2.9 mg/dL (0.0-1.0); Blood Urea Nitrogen 31 mg/dL (9-16); Calcium 9.4 mg/dL (8.4-10.2); Carbon Dioxide 20 mmol/L (22-29); Chloride 105 mmol/L (96-108); Creatinine Clr Calc Pharmacy 26.1; Estimated Glomerular Filt Rate 26; Glucose Random 96 mg/dL (60-115); Potassium 3.9 mmol/L (3.3-5.1); Sodium 140 mmol/L (135-145); Total Protein 6.8 g/dL (6.5-8.0)
[2020-08-14] MEDS: cefTRIAXone sodium 1 GM in 0.9 % Sodium Chloride 50 ML IV (04:09)
--- NOTE | 2020-08-14 04:10 | PC.NURSE ---
Report taken from veronica Farr RN resuming care. Pt found sitting upright in bed, resting. Pt reports no pain at this time, offers no complaints. Pt aware of pending urine sample, provided with a bedside urinal. Rocephin infusing per MAR. VSS at this time. Pt aware of plan to admit. Call mitchell within reach, continue to monitor.
[2020-08-14] MEDS: metroNIDAZOLE/NS 500 MG/100 ML PIGGYBACK 100 MG IV ×3 (05:08→20:32)
--- NOTE | 2020-08-14 06:16 | PM.IMHP ---
History of Present Illness Date of Service: 08/13/20 Chief Complaint: abdominal pain This is a 80-year-old male with past medical history of CAD, COPD, diabetes, GERD, HTN, HLD, paroxysmal AFib, PVD who presents the hospital complaints of abdominal pain. Patient reports that he was at dinner when all of a sudden he started having abdominal pain, mostly generalized, went to the bathroom, had a large BM, followed by multiple episodes of watery nonbloody diarrhea. Patient had nausea as well, according to the who was present at the time patient also had significant diaphoresis, was clammy, weak, checked his temperature which was normal.. Patient started having chills, appeared very pale. She checked his blood pressure which was 100/50s. Patient reports the abdominal pain is general but worse in the right lower quadrant, pain was 10/10, nonradiating. He was significantly weak and decided to come to the hospital. Patient denies any cough, shortness of breath, no chest pain, no sputum production. He has nausea with no vomiting, no previous similar episode. No urinary symptoms and no lower extremity edema. On arrival to the ED patient is hemodynamically stable with BP of 90/40 otherwise normalized with fluids. Temperature of a 100? point 1 initially that increased to 100.4. Labs are significant for WBC count of 18.1, hemoglobin of 10.3, PT of 16.8, INR of 1.4, BUN of 31, creatinine of 2.43 with a baseline of 1.27, total bili of 2.9, AST of 434, ALT of 443, alk-phos of 224, BNP of 83, Initial chest x-ray showed new airspace opacities throughout the left mid lung and left lung base, possibly in the right mid lung as well concerning for multifocal infection, This was followed by chest CT which showed mild peripheral bibasilar opacities with most suggestive of a to lactase this with no additional consolidation. Cholelithiasis with mild gallbladder wall prominence, this will be better assessed on abdominal ultrasound. Patient underwent abdominal ultrasound which showed cholelithiasis though no significant gallbladder wall thickening. Right upper quadrant tenderness was present during the exam. Patient then had abdominal CT which showed mild stranding adjacent to the left pancreas and proximal duodenum, potentially secondary to pancreatitis. Past medical history as below uncomfortable patient This case was discussed with surgical team by ED and patient deferred to medical service Review of Systems Review of Systems: Yes all other systems are reviewed and are negative [facility] Medical History CAD (coronary artery disease) COPD (chronic obstructive pulmonary disease) Diabetes mellitus GERD (gastroesophageal reflux disease) History of cancer HTN (hypertension) Hyperlipidemia Paroxysmal atrial fibrillation PVD (peripheral vascular disease) Surgical History H/O heart surgery History of arthroplasty of left hip History of lobectomy of lung Social History Alcohol intake: never Smoking Status: Never smoker Use of substances other than those prescribed or required for medical reasons: No Advance Directives: No Advance Directives Information Provided: Yes Meds Allergies Allergy/AdvReac Type Severity Reaction Status Date / Time No Known Allergies Allergy Verified 02/17/20 10:42 Active Medications: Current Medications Generic Name Dose Route Start Last Admin Trade Name Freq PRN Reason Stop Dose Admin Acetaminophen 650 mg 08/14/20 03:41 Acetaminophen 325 Mg Tablet PO Q6H PRN Pain, Mild (Pain Scale 1-3) Al Hydroxide/Mg Hydroxide 30 ml 08/14/20 03:41 Magnesium Hydrox/Alum Hydrox 30 Ml Oral.Susp PO Q4H PRN Heartburn/Nausea Atorvastatin Calcium 80 mg 08/14/20 09:00 Atorvastatin Calcium 80 Mg Tablet PO DAILY [facility]BRE[facility] Ceftriaxone Sodium 1 gm/ 50 mls @ 100 mls/hr 08/14/20 04:00 08/14/20 04:46 Sodium Chloride IV Infused Q24H [facility] Infusion Metronidazole 500 mg in 100 mls @ 100 mls/hr 08/14/20 05:00 08/14/20 05:08 Flagyl IV 100 mls/hr Q8H [facility] Administration Lisinopril 10 mg 08/14/20 09:00 Lisinopril 10 Mg Tablet PO DAILY [facility] Protocol Ondansetron HCl 4 mg 08/14/20 03:41 Ondansetron Hcl 4 Mg/2 Ml Vial IVPUSH Q8H PRN Nausea and Vomiting Oxycodone HCl 5 mg 08/14/20 03:41 Oxycodone Hcl Immed Release 5 Mg Tablet PO Q6H PRN Pain, Severe (Pain Scale 7-10) Rivaroxaban 20 mg 08/14/20 17:00 Rivaroxaban 20 Mg Tablet PO DAILY@1700 [facility] Sodium Chloride 3 ml 08/14/20 08:00 0.9 % Sodium Chloride Flush 3 Ml Syringe IVFLUSH QSHIFT [facility] Home Medications Medication Instructions Recorded Confirmed Last Taken Type atorvastatin 1 tab PO DAILY 08/14/20 08/14/20 Unknown History lisinopril 1 tab PO DAILY 08/14/20 08/14/20 Unknown History metformin 1 tab PO BID 08/14/20 08/14/20 Unknown History rivaroxaban [Xarelto] 1 tab PO QPM 08/14/20 08/14/20 Unknown History Physical Exam Vital Signs and Narrative: Vital Signs: Last Vital Signs Temp 100.4 F 08/14/20 00:00 Pulse 60 08/14/20 04:09 Resp 16 08/14/20 04:09 BP 131/51 L 08/14/20 04:09 Pulse Ox 96 08/14/20 04:09 Body Mass Index 31.6 Const: General: cooperative and no acute distress Orientation/consciousness: patient oriented x3 Eyes: General: appearance normal, both eyes and all related structures Resp: Effort & Inspection: normal respiratory effort and able to speak in complete sentences Cardio: Rate: regular rate Rhythm: regular rhythm GI: Other: Epigastric and right upper quadrant abdominal tenderness Palpation (GI): Soft to palpation Auscultation: normal bowel sounds Skin: General skin exam: no rashes or lesions noted Neuro: General: patient oriented x3 Cognition (Neuro): normal cognition Extrem: General: Yes normal to inspection and Yes no pedal edema Results Labs CBC and Chem 7: 08/13/20 23:06 08/13/20 23:06 Labs: Laboratory Results - last 24 hr 08/13/20 08/13/20 08/13/20 22:18 23:06 23:06 MCV 84.8 MCH 27.5 MCHC 32.5 RDW 15.1 Plt Count 322 MPV 9.7 Immature Gran % (Auto) 0.4 Neut % (Auto) 86.8 H Lymph % (Auto) 2.5 L [place] % (Auto) 10.0 Eos % (Auto) 0.1 Baso % (Auto) 0.2 Lymph # (Auto) 0.5 L [place] # (Auto) 1.8 H Eos # (Auto) 0.0 Baso # (Auto) 0.0 Abs Immat Gran (auto) 0.07 H Absolute Neuts (auto) 15.7 H Absolute Nucleated RBC 0.000 Nucleated RBC % (auto) 0.0 Smear Tech's Comments VERIFIED PT INR Anion Gap 19 Estim Creat Clear Calc 26.1 Estimated GFR 26 POC Glucose 88 Random Glucose 96 Lactic Acid Calcium 9.4 Total Bilirubin 2.9 H AST 434 H ALT 443 H Alkaline Phosphatase 224 H B-Natriuretic Peptide Total Protein 6.8 Albumin 4.2 COVID-19 ([facility]) COVID-19 Clin Com 08/13/20 08/13/20 08/13/20 23:06 23:06 23:06 MCV MCH MCHC RDW Plt Count MPV Immature Gran % (Auto) Neut % (Auto) Lymph % (Auto) [place] % (Auto) Eos % (Auto) Baso % (Auto) Lymph # (Auto) [place] # (Auto) Eos # (Auto) Baso # (Auto) Abs Immat Gran (auto) Absolute Neuts (auto) Absolute Nucleated RBC Nucleated RBC % (auto) Smear Tech's Comments PT 16.8 H INR 1.4 H Anion Gap Estim Creat Clear Calc Estimated GFR POC Glucose Random Glucose Lactic Acid 1.7 Calcium Total Bilirubin AST ALT Alkaline Phosphatase B-Natriuretic Peptide 83 Total Protein Albumin COVID-19 ([facility]ILI) COVID-19 [employer] Com 08/13/20 23:39 MCV MCH MCHC RDW Plt Count MPV Immature Gran % (Auto) Neut % (Auto) Lymph % (Auto) [place] % (Auto) Eos % (Auto) Baso % (Auto) Lymph # (Auto) [place] # (Auto) Eos # (Auto) Baso # (Auto) Abs Immat Gran (auto) Absolute Neuts (auto) Absolute Nucleated RBC Nucleated RBC % (auto) Smear Tech's Comments PT INR Anion Gap Estim Creat Clear Calc Estimated GFR POC Glucose Random Glucose Lactic Acid Calcium Total Bilirubin AST ALT Alkaline Phosphatase B-Natriuretic Peptide Total Protein Albumin COVID-19 ([facility]ILI) Negative COVID-19 Clin Com See Note Imaging Radiologist's Impressions: Impressions Chest X-Ray 08/13/20 22:05 IMPRESSION: New airspace opacities throughout the left midlung and left lung base, possibly in the right midlung as well, concerning for multifocal infection. Abdomen Ultrasound 08/14/20 00:45 IMPRESSION: Cholelithiasis. Though no significant gallbladder wall thickening is present, right upper quadrant tenderness was reported during the exam. If there is clinical concern for acute cholecystitis, assessment with a nuclear medicine hepatobiliary scan may be helpful. Chest CT 08/14/20 00:45 IMPRESSION: 1. Mild peripheral bibasilar opacities most suggestive of atelectasis. No additional consolidation. 2. Postoperative changes from prior right upper lobectomy and partial left upper lobe resection, similar in appearance to 09/01/2019. 3. Cholelithiasis, with mild gallbladder wall prominence. This will be better assessed on abdominal ultrasound. Abdomen/Pelvis CT 08/14/20 03:20 IMPRESSION: 1. Mild stranding adjacent to the pancreas and proximal duodenum, potentially secondary to pancreatitis. Correlation with laboratory values is recommended. 2. Cholelithiasis with prominent gallbladder wall. As previously noted, if there is clinical concern for acute cholecystitis this could be further assessed with nuclear medicine hepatobiliary scan. Assessment and Plan (1) Sepsis: Status: Acute (2) Gallstone pancreatitis: Status: Acute (3) Abdominal pain: Status: Acute (4) GARTH (acute kidney injury): Status: Acute This is a 80-year-old male with past medical history of CAD, COPD, HTN, hyperlipidemia among others who presents to the hospital with nausea, and abdominal pain found to have acute pancreatitis # sepsis - fever, leukocytosis, hypotension, most likely secondary to ?Cholecystitis - has no upper respiratory symptoms including no cough, no sputum production, no shortness of breath - patient's blood pressure resuscitated with IV fluids, normal eyes, no lactic acidosis - started on IV antibiotics - follow cultures # acute pancreatitis - most likely secondary to gallstones as there is significant cholelithiasis as well as LFT elevations - lipase and amylase pending - CT abdomen shows mild stranding adjacent to the pancreas and proximal duodenum, cholelithiasis with prominent gallbladder wall - at this time will start patient on IV fluids - pain control - triglycerides pending - denies any alcohol use - surgery consult # abdominal pain - most likely secondary to acute pancreatitis although pain is not characteristic - pain control, IV fluids # GARTH - most likely secondary to dehydration as well as acute pancreatitis - IV fluids - follow cultures # AFib - stable - continue rivaroxaban # diabetes - stop metformin - cut low-dose sliding scale insulin - NPO due to acute pancreatitis DVT prophylaxis: Rivaroxaban
[2020-08-14 07:13] LABS: Amylase 3415 U/L (28-100)
--- NOTE | 2020-08-14 07:21 | PC.NURSE ---
Addendum entered by Zully Mata 08/14/20 07:22: pt aware of plan to admit to hospital and that there is a consult out to surgery so as of now pt is npo, pt is also aware that a urine order is pending but pt states he had nothing to drink and does not feel like he needs to pee. vs stable sinus keysha on the monitor Original Note: pt resting in the stretcher, alert and oriented, skin pwd, respirations even and unlabored. pt denies pain/nausea at this time
[2020-08-14 07:30] LABS: Glucose, Whole Blood 94 mg/dL (60-115)
[2020-08-14] MEDS: Lactated Ringers 1,000 ML 200 ML IVCONT ×3 (07:31→19:47)
[2020-08-14] MEDS: 0.9 % Sodium Chloride Flush 3 ML SYRINGE IVFLUSH ×2 (07:31→17:13)
[2020-08-14 07:41] LABS: Lipase 6066 U/L (8-78)
[2020-08-14 09:08] LABS: Triglycerides 45 mg/dL
[2020-08-14] MEDS: Atorvastatin Calcium 80 MG TABLET PO (10:28)
[2020-08-14] MEDS: lisinopriL 10 MG TABLET PO (10:28)
--- NOTE | 2020-08-14 10:47 | P.CONGS_ITS ---
History of Present Illness Consult details Consult date: 08/14/20 Reason for consult: abdominal pain Requesting physician: Beto Wade Narrative: This is a 80-year-old gentleman with a history of chronic anemia, COPD, [id number] diabetes mellitus, coronary artery disease and atrial fibrillation chronically anticoagulated on Xarelto, who presented to the emergency department early this morning for evaluation of abdominal discomfort, chills and loose stool. He had been feeling well yesterday morning but then developed a mild feeling of fullness, like he had a bubble in his abdomen. Later in the day, he had some lower abdominal discomfort. He had gone out for a meal with friends, but left the restaurant before eating because he felt on well. After returning home, he developed chills and weakness and then passed copious loose stool without evidence of bleeding. His , who is a retired RN, checked his temperature. She reports that it was lower than normal. Because of the persistent symptoms, he came to the emergency department for evaluation. In the emergency department, white blood count was noted to be elevated at 18.1. Liver function studies were elevated, total bilirubin 2.9, AST was 434 and ALT 443. Alkaline phosphatase was 224. Amylase and lipase were elevated at 3415 and 6066 respectively. Ultrasound of the abdomen revealed gallstones. The gallbladder wall was top normal in thickness. Tenderness was noted in the region of the gallbladder at the time of the ultrasound. CT scan of the abdomen and pelvis was obtained, again revealing gallstones. Mild stranding was noted around the pancreatic head. At the time of my visit, he reported that his pain had resolved. He was feeling well. He reported that he has experienced milder episodes of abdominal discomfort with the sensation of a gas bubble in his abdomen in the past, but otherwise has not experienced similar GI difficulties. Review of Systems Constitutional: Constitutional: Reports chills, Denies fever(s) and Reports weakness ENT: Denies dizziness and Denies disequilibrium Cardiovascular: Cardiovascular: Denies chest pain, Denies palpitations and Reports dyspnea on exertion (With strenuous activity only) Respiratory: Respiratory: Denies cough, Reports dyspnea on exertion (With strenuous activity only) and Denies wheezing Genitourinary: Genitourinary: Denies no additional male genitourinary complaints Musculoskeletal: Musculoskeletal: Denies no additional musculoskeletal complaints Neurologic: Denies dizziness, Denies disequilibrium and Reports weakness Endocrine: Endocrine: Denies palpitations Hematologic/Lymphatic: Hematologic/Lymphatic: Reports no additional hematologic/lymphatic complaints Comments: Chronically anticoagulated on Xarelto Allergic/Immunologic: Allergic/Immunologic: Denies wheezing PMFSH Past Medical History Medical History CAD (coronary artery disease) COPD (chronic obstructive pulmonary disease) Diabetes mellitus GERD (gastroesophageal reflux disease) History of cancer HTN (hypertension) Hyperlipidemia Paroxysmal atrial fibrillation PVD (peripheral vascular disease) Surgical History Surgical History H/O heart surgery History of arthroplasty of left hip History of lobectomy of lung Social History Social History Alcohol intake: never Smoking Status: Never smoker Use of substances other than those prescribed or required for medical reasons: No Advance Directives: No Advance Directives Information Provided: Yes Meds Allergies Allergy/AdvReac Type Severity Reaction Status Date / Time No Known Allergies Allergy Verified 02/17/20 10:42 Active Medications: Current Medications Generic Name Dose Route Start Last Admin Trade Name Freq PRN Reason Stop Dose Admin Acetaminophen 650 mg 08/14/20 03:41 Acetaminophen 325 Mg Tablet PO Q6H PRN Pain, Mild (Pain Scale 1-3) Al Hydroxide/Mg Hydroxide 30 ml 08/14/20 03:41 Magnesium Hydrox/Alum Hydrox 30 Ml Oral.Susp PO Q4H PRN Heartburn/Nausea Atorvastatin Calcium 80 mg 08/14/20 09:00 08/14/20 10:28 Atorvastatin Calcium 80 Mg Tablet PO 80 mg DAILY [facility] Administration Ceftriaxone Sodium 1 gm/ 50 mls @ 100 mls/hr 08/14/20 04:00 08/14/20 04:46 Sodium Chloride IV Infused Q24H [facility] Infusion Metronidazole 500 mg in 100 mls @ 100 mls/hr 08/14/20 05:00 08/14/20 05:08 Flagyl IV 100 mls/hr Q8H [facility] Administration Lactated Ringer's 1,000 mls @ 200 mls/hr 08/14/20 06:30 08/14/20 07:31 Lr IVCONT 200 mls/hr .Q5H AM[facility] Administration Insulin Human Lispro 0 unit 08/14/20 07:30 08/14/20 07:25 Insulin Lispro 100 Unit/Ml 3 Ml Vial SUBCUT Not Given QIDACHS [facility] Protocol Lisinopril 10 mg 08/14/20 09:00 08/14/20 10:28 Lisinopril 10 Mg Tablet PO 10 mg DAILY [facility] Administration Protocol Ondansetron HCl 4 mg 08/14/20 03:41 Ondansetron Hcl 4 Mg/2 Ml Vial IVPUSH Q8H PRN Nausea and Vomiting Oxycodone HCl 5 mg 08/14/20 03:41 Oxycodone Hcl Immed Release 5 Mg Tablet PO Q6H PRN Pain, Severe (Pain Scale 7-10) Rivaroxaban 20 mg 08/14/20 17:00 Rivaroxaban 20 Mg Tablet PO DAILY@1700 [facility] Sodium Chloride 3 ml 08/14/20 08:00 08/14/20 07:31 0.9 % Sodium Chloride Flush 3 Ml Syringe IVFLUSH 3 ml QSHIFT [facility] Administration Home Medications Medication Instructions Recorded Confirmed Last Taken Type atorvastatin 1 tab PO DAILY 08/14/20 08/14/20 Unknown History lisinopril 1 tab PO DAILY 08/14/20 08/14/20 Unknown History metformin 1 tab PO BID 08/14/20 08/14/20 Unknown History rivaroxaban [Xarelto] 1 tab PO QPM 08/14/20 08/14/20 Unknown History Physical Exam Vital Signs: Vital Signs: Last Vital Signs Temp 100.4 F 08/14/20 00:00 Pulse 60 08/14/20 10:32 Resp 18 08/14/20 10:32 BP 166/53 H 08/14/20 10:32 Pulse Ox 97 08/14/20 10:32 Body Mass Index 31.6 Const: General: cooperative, healthy appearing and no acute distress HENMT: Head: Yes normocephalic and Yes atraumatic Eyes: Other: Mild scleral icterus Neck: Neck: Yes trachea midline and Yes supple Resp: Effort & Inspection: normal respiratory effort Auscultation: clear to auscultation bilaterally Cardio: Rate: regular rate Rhythm: regular rhythm Heart sounds: no murmurs GI: Other: Soft, nontender, nondistended, no palpable masses, normal bowel sounds Skin: Other: Normal color, warm and dry Extrem: General: Yes normal to inspection Psych: Mental Status: mental status grossly normal Results Labs Result diagrams: 08/13/20 23:06 08/13/20 23:06 Labs: Abnormal lab results 08/13/20 08/13/20 08/13/20 Range/Units 23:06 23:06 23:06 WBC 18.1 H (4.8-10.8) X10*3/uL RBC 3.74 L (4.60-5.80) X10*6/uL Hgb 10.3 L (14.0-18.0) g/dl Hct 31.7 L (42-52) % Neut % (Auto) 86.8 H (45-73) % Lymph % (Auto) 2.5 L (20-40) % Lymph # (Auto) 0.5 L (1.2-4.9) X10*3/uL [place] # (Auto) 1.8 H (0.1-1.2) X10*3/uL Abs Immat Gran (auto) 0.07 H (0.00-0.03) X10*3/uL Absolute Neuts (auto) 15.7 H (2.0-8.3) X10*3/uL PT 16.8 H (10.8-13.0) SEC INR 1.4 H (0.9-1.1) Carbon Dioxide 20 L (22-29) mmol/L BUN 31 H (9-16) mg/dL Creatinine 2.43 H (0.5-1.4) mg/dL Total Bilirubin 2.9 H (0.0-1.0) mg/dL AST 434 H (5-37) U/L ALT 443 H (0-40) U/L Alkaline Phosphatase 224 H (39-117) U/L Amylase 3415 H (28-100) U/L Lipase 6066 H (8-78) U/L Short CBC 08/13/20 Range/Units 23:06 WBC 18.1 H (4.8-10.8) X10*3/uL Hgb 10.3 L (14.0-18.0) g/dl Hct 31.7 L (42-52) % Plt Count 322 (160-400) X10*3/uL BMP 08/13/20 23:06 Sodium 140 Potassium 3.9 Chloride 105 Carbon Dioxide 20 L BUN 31 H Creatinine 2.43 H Calcium 9.4 Liver Function 08/13/20 Range/Units 23:06 Total Bilirubin 2.9 H (0.0-1.0) mg/dL AST 434 H (5-37) U/L ALT 443 H (0-40) U/L Alkaline Phosphatase 224 H (39-117) U/L Albumin 4.2 (3.5-5.0) g/dL All other labs normal. Assessment and Plan (1) Abdominal pain: Status: Acute (2) Gallstone pancreatitis: Status: Acute This is a 80-year-old male presenting with acute onset of abdominal discomfort, weakness, chills, and copious loose stool. Workup reveals gallstones and laboratory findings consistent with gallstone pancreatitis, though his presenting complaints are atypical for this diagnosis. Symptoms have resolved and he has no abdominal tenderness. Workup also reveals an acute kidney injury. Will begin clear liquid diet, continue IV fluids, await culture results and follow LFTs and creatinine level. If no other etiology is identified, cholecystectomy would be appropriate. Chronically anticoagulated on Xarelto for atrial fibrillation. Last dose was 17:21. Will continue on Xarelto at this time pending further evaluation and decision regarding surgery. I have discussed this with him, and also had a lengthy discussion with his by phone. General surgery will follow along. Procedures Date of Service Date of Service: 08/14/20
[2020-08-14 11:27] LABS: Glucose, Whole Blood 66 mg/dL (60-115)
[2020-08-14 12:58] LABS: Glucose, Whole Blood 75 mg/dL (60-115)
[2020-08-14 13:05] LABS: Glucose Urine UA NEG (NEG); Leukocyte Esterase Urine NEG (NEG); Nitrite Urine NEG (NEG); Urine Blood 2+ (NEG); Urine Ketones NEG (NEG); Urine Protein 1+ MG/DL (NEG-TRACE)
[2020-08-14 13:06] LABS: Appearance Urine CLOUDY; Color Urine DARK YELLOW
[2020-08-14 13:49] LABS: Amorphous Sediment Urine 1+ /LPF; Bacteria Urine 1+ /LPF; Granular Casts Urine 0-2 /LPF; Squamous Epithelial Cell Urine TRACE /LPF; WBC Urine 0-2 /HPF (0-4)
[2020-08-14 13:53] LABS: Renal Epithelial Cells Urine TRACE /LPF; Sperm Urine NOTED
[2020-08-14 17:35] LABS: Glucose, Whole Blood 80 mg/dL (60-115)
[2020-08-14] MEDS: Rivaroxaban 20 MG TABLET PO (18:40)
--- NOTE | 2020-08-14 20:37 | PC.NURSE ---
pt has been ambulatory with minimal assist to br. loose bm at one point with lots of gas. drinking juices throughout day with moderatly low glucose. last was 79, taking apple juice before sleep. nad. no abd pain.
[2020-08-14 20:39] LABS: Glucose, Whole Blood 79 mg/dL (60-115)
[2020-08-15] VITALS (7 sets, daily range): BP systolic 159–181; BP diastolic 58–92; PULSE 60–70; RESP 18–20; TEMP 36.8–37.3; O2SAT 95–96; BMI 27.6
[2020-08-15] MEDS: Lactated Ringers 1,000 ML 200 ML IVCONT ×2 (00:32→08:07)
[2020-08-15] MEDS: cefTRIAXone sodium 1 GM in 0.9 % Sodium Chloride 50 ML IV (03:05)
[2020-08-15] MEDS: metroNIDAZOLE/NS 500 MG/100 ML PIGGYBACK 100 MG IV ×3 (04:19→21:44)
[2020-08-15 07:15] LABS: MANUAL DIFF FLAG NO
[2020-08-15 07:17] LABS: Glucose, Whole Blood 72 mg/dL (60-115)
[2020-08-15 07:26] LABS: Basophils Percent Auto 0.2 % (0-2); Eosinophils Absolute Auto 0.1 X10*3/uL (0.0-0.4); Eosinophils Percent Auto 0.7 % (0-4); Hemoglobin 8.3 g/dl (14.0-18.0); Imm Gran Abs Auto 0.05 X10*3/uL (0.00-0.03); Imm Gran Pct Auto 0.4 % (0.0-0.4); Lymphocytes Absolute Auto 0.9 X10*3/uL (1.2-4.9); Lymphocytes Percent Auto 6.8 % (20-40); Mean Corpuscular HGB Conc 31.9 g/dl (31.0-36.0); Mean Corpuscular Hemoglobin 27.5 pg (27.0-33.0); Mean Corpuscular Volume 86.1 fL (80-98); Mean Platelet Volume 10.3 fL (9.4-12.4); Monocytes Absolute Auto 0.9 X10*3/uL (0.1-1.2); Monocytes Percent Auto 7.3 % (2-11); Neutrophils Absolute Auto 10.6 X10*3/uL (2.0-8.3); Neutrophils Percent Auto 84.6 % (45-73); Platelet Count 265 X10*3/uL (160-400); Red Blood Count 3.02 X10*6/uL (4.60-5.80); Red Cell Distribution Width 15.3 % (11.0-16.0); White Blood Count 12.6 X10*3/uL (4.8-10.8)
[2020-08-15] MEDS: 0.9 % Sodium Chloride Flush 3 ML SYRINGE IVFLUSH ×3 (08:07→21:43)
[2020-08-15] MEDS: lisinopriL 10 MG TABLET PO (08:07)
[2020-08-15 08:35] LABS: Anion Gap 15 (12-20); Blood Urea Nitrogen 21 mg/dL (9-16); Carbon Dioxide 18 mmol/L (22-29); Chloride 108 mmol/L (96-108); Creatinine Clr Calc Pharmacy 61.4; Estimated Glomerular Filt Rate > 60; Glucose Random 68 mg/dL (60-115); Sodium 137 mmol/L (135-145)
[2020-08-15 08:46] LABS: Calcium 8.6 mg/dL (8.4-10.2)
--- NOTE | 2020-08-15 08:49 | PM.PNGS ---
Subjective Subjective Date of Service: 08/15/20 Interval history: Says he has some bloating still At the area last night Denies significant abdominal pain Physical Exam Vital Signs: Vital Signs: Last Vital Signs Temp 98.2 F 08/15/20 07:54 Pulse 67 08/15/20 08:07 Resp 20 08/15/20 07:54 BP 165/92 H 08/15/20 08:07 Pulse Ox 95 08/15/20 07:54 Body Mass Index 27.6 Laboratory Results - last 24 hr 08/14/20 08/14/20 08/14/20 08:24 11:22 12:50 WBC RBC Hgb Hct MCV MCH MCHC RDW Plt Count MPV Immature Gran % (A uto) Neut % (Auto) Lymph % (Auto) Erath % (Auto) Eos % (Auto) Baso % (Auto) Lymph # (Auto) Erath # (Auto) Eos # (Auto) Baso # (Auto) Abs Immat Gran (au to) Absolute Neuts (au to) Absolute Nucleated RBC Nucleated RBC % (a uto) Sodium Potassium Chloride Carbon Dioxide Anion Gap BUN Creatinine Estim Creat Clear Calc Estimated GFR POC Glucose 66 Random Glucose Calcium Triglycerides 45 Urine Color DARK YELLOW Urine Appearance CLOUDY Urine pH 6.0 Ur Specific Gravit y 1.020 Urine Protein 1+ H Urine Glucose (UA) NEG Urine Ketones NEG Urine Blood 2+ H Urine Nitrite NEG Ur Leukocyte Janice ase NEG Urine RBC 1-4 Urine WBC 0-2 Ur Squamous Epith Cells TRACE Ur Renal Epithelia l Cell TRACE Amorphous Sediment 1+ Urine Bacteria 1+ Granular Casts 0-2 Urine Sperm NOTED 08/14/20 08/14/20 08/14/20 12:54 17:25 20:30 WBC RBC Hgb Hct MCV MCH MCHC RDW Plt Count MPV Immature Gran % (A uto) Neut % (Auto) Lymph % (Auto) Erath % (Auto) Eos % (Auto) Baso % (Auto) Lymph # (Auto) Erath # (Auto) Eos # (Auto) Baso # (Auto) Abs Immat Gran (au to) Absolute Neuts (au to) Absolute Nucleated RBC Nucleated RBC % (a uto) Sodium Potassium Chloride Carbon Dioxide Anion Gap BUN Creatinine Estim Creat Clear Calc Estimated GFR POC Glucose 75 80 79 Random Glucose Calcium Triglycerides Urine Color Urine Appearance Urine pH Ur Specific Gravit y Urine Protein Urine Glucose (UA) Urine Ketones Urine Blood Urine Nitrite Ur Leukocyte Janice ase Urine RBC Urine WBC Ur Squamous Epith Cells Ur Renal Epithelia l Cell Amorphous Sediment Urine Bacteria Granular Casts Urine Sperm 08/15/20 08/15/20 08/15/20 05:59 05:59 07:05 WBC 12.6 H RBC 3.02 L Hgb 8.3 L Hct 26.0 L MCV 86.1 MCH 27.5 MCHC 31.9 RDW 15.3 Plt Count 265 MPV 10.3 Immature Gran % (A uto) 0.4 Neut % (Auto) 84.6 H Lymph % (Auto) 6.8 L Erath % (Auto) 7.3 Eos % (Auto) 0.7 Baso % (Auto) 0.2 Lymph # (Auto) 0.9 L Erath # (Auto) 0.9 Eos # (Auto) 0.1 Baso # (Auto) 0.0 Abs Immat Gran (au to) 0.05 H Absolute Neuts (au to) 10.6 H Absolute Nucleated RBC 0.000 Nucleated RBC % (a uto) 0.0 Sodium 137 Potassium 4.0 Chloride 108 Carbon Dioxide 18 L Anion Gap 15 BUN 21 H Creatinine 1.12 Estim Creat Clear Calc 61.4 Estimated GFR > 60 POC Glucose 72 Random Glucose 68 Calcium 8.6 D Triglycerides Urine Color Urine Appearance Urine pH Ur Specific Gravit y Urine Protein Urine Glucose (UA) Urine Ketones Urine Blood Urine Nitrite Ur Leukocyte Janice ase Urine RBC Urine WBC Ur Squamous Epith Cells Ur Renal Epithelia l Cell Amorphous Sediment Urine Bacteria Granular Casts Urine Sperm Const: General: no acute distress Resp: Effort & Inspection: normal respiratory effort Cardio: Rhythm: regular rhythm GI: Palpation (GI): Soft to palpation, not firm, nontender, no guarding and not rigid Progress Note: A&P Assessment and plan (1) Gallstone pancreatitis: Status: Acute Assessment and Plan: CT findings suggestive of mild gallstone pancreatitis Patient does have symptoms of diarrhea as well - concomitant enteritis? Check lipase and LFTs Abdominal exam benign Had explained to patient option of cholecystectomy for gallstones He understands at this time, states he does not want to go for surgery unless she really needs it Will continue to follow Fall Risk Details Current Medications: Current Medications Generic Name Dose Route Start Last Admin Trade Name Freq PRN Reason Stop Dose Admin Acetaminophen 650 mg 08/14/20 03:41 Acetaminophen 325 Mg Tablet PO Q6H PRN Pain, Mild (Pain Scale 1-3) Al Hydroxide/Mg Hydroxide 30 ml 08/14/20 03:41 Magnesium Hydrox/Alum Hydrox 30 Ml Oral.Susp PO Q4H PRN Heartburn/Nausea Atorvastatin Calcium 80 mg 08/14/20 09:00 08/14/20 10:28 Atorvastatin Calcium 80 Mg Tablet PO 80 mg DAILY [facility] Administration Ceftriaxone Sodium 1 gm/ 50 mls @ 100 mls/hr 08/14/20 04:00 08/15/20 04:14 Sodium Chloride IV Infused Q24H [facility] Infusion Metronidazole 500 mg in 100 mls @ 100 mls/hr 08/14/20 05:00 08/15/20 05:47 Flagyl IV Infused Q8H [facility] Infusion Lactated Ringer's 1,000 mls @ 200 mls/hr 08/14/20 06:30 08/15/20 08:07 Lr IVCONT 200 mls/hr .Q5H [facility] Administration Insulin Human Lispro 0 unit 08/14/20 07:30 08/15/20 08:05 Insulin Lispro 100 Unit/Ml 3 Ml Vial SUBCUT Not Given QIDACHS [facility] Protocol Lisinopril 10 mg 08/14/20 09:00 08/15/20 08:07 Lisinopril 10 Mg Tablet PO 10 mg DAILY [facility] Administration Protocol Ondansetron HCl 4 mg 08/14/20 03:41 Ondansetron Hcl 4 Mg/2 Ml Vial IVPUSH Q8H PRN Nausea and Vomiting Oxycodone HCl 5 mg 08/14/20 03:41 Oxycodone Hcl Immed Release 5 Mg Tablet PO Q6H PRN Pain, Severe (Pain Scale 7-10) Rivaroxaban 20 mg 08/14/20 17:00 08/14/20 18:40 Rivaroxaban 20 Mg Tablet PO 20 mg DAILY@1700 [facility] Administration Sodium Chloride 3 ml 08/14/20 08:00 08/15/20 08:07 0.9 % Sodium Chloride Flush 3 Ml Syringe IVFLUSH 3 ml QSHIFT [facility] Administration Time Spent With Patient Time: Total time spent is greater than 50% in coordination of care (as documented) at patient's floor/unit and/or counseling patient: Time with patient: 15 - 24 minutes Procedures Date of Service Date of Service: 08/15/20
--- NOTE | 2020-08-15 08:57 | HE.PHANOTE ---
ELEVATED AST/ALT, CONTACTED, THIS IS LIKELY DUE TO GALLSTONE PANCREATITIS, OK TO CONTINUE STATIN
[2020-08-15 09:47] LABS: Alanine Aminotransferase 280 U/L (0-40); Albumin Level 3.5 g/dL (3.5-5.0); Alkaline Phosphatase 168 U/L (39-117); Aspartate Amino Transferase 180 U/L (5-37); Bilirubin Direct 0.7 mg/dL (0.0-0.5); Bilirubin Total 1.1 mg/dL (0.0-1.0); Total Protein 5.7 g/dL (6.5-8.0)
[2020-08-15 10:03] LABS: Lipase 3438 U/L (8-78)
--- NOTE | 2020-08-15 11:34 | MHC.CM.PN ---
met with pt who explains that prior to hospitalization he and his had no services he does not anticipate needing services when dcd pt has own ride home
[2020-08-15] MEDS: ondansetron HCL 4 MG/2 ML VIAL IVPUSH (12:04)
[2020-08-15 12:21] LABS: Glucose, Whole Blood 81 mg/dL (60-115)
--- NOTE | 2020-08-15 13:18 | HO.PM.IMPN ---
Subjective Subjective Date of Service: 08/15/20 Interval History: still with abdominal pain but tolerating clears Cardiovascular Cardiovascular: Reports no additional cardiovascular complaints Genitourinary Genitourinary: Reports no additional male genitourinary complaints Physical Exam Vital Signs: Vital Signs: Last Vital Signs Temp 98.3 F 08/15/20 11:16 Pulse 60 08/15/20 11:16 Resp 18 08/15/20 11:16 BP 169/74 H 08/15/20 11:16 Pulse Ox 96 08/15/20 11:16 Body Mass Index 27.6 General: AO X 3, no acute distress Resp: CTA bilateral CVS: S1,S2,RRR GI: soft, epigatric tender, non distended Neuro: motor grossly intact Psych: appropriate affect Objective Data Current Medications Generic Name Dose Route Start Last Admin Trade Name Freq PRN Reason Stop Dose Admin Acetaminophen 650 mg 08/14/20 03:41 Acetaminophen 325 Mg Tablet PO Q6H PRN Pain, Mild (Pain Scale 1-3) Al Hydroxide/Mg Hydroxide 30 ml 08/14/20 03:41 Magnesium Hydrox/Alum Hydrox 30 Ml Oral.Susp PO Q4H PRN Heartburn/Nausea Atorvastatin Calcium 80 mg 08/15/20 21:00 Atorvastatin Calcium 80 Mg Tablet PO BEDTIME [facility] Ceftriaxone Sodium 1 gm/ 50 mls @ 100 mls/hr 08/14/20 04:00 08/15/20 04:14 Sodium Chloride IV Infused Q24H [facility] Infusion Metronidazole 500 mg in 100 mls @ 100 mls/hr 08/14/20 05:00 08/15/20 13:11 Flagyl IV Infused Q8H [facility] Infusion Lactated Ringer's 1,000 mls @ 200 mls/hr 08/14/20 06:30 08/15/20 13:10 Lr IVCONT Infused .Q5H [facility] Infusion Insulin Human Lispro 0 unit 08/14/20 07:30 08/15/20 12:03 Insulin Lispro 100 Unit/Ml 3 Ml Vial SUBCUT Not Given QIDACHS [facility] Protocol Lisinopril 10 mg 08/14/20 09:00 08/15/20 08:07 Lisinopril 10 Mg Tablet PO 10 mg DAILY [facility] Administration Protocol Ondansetron HCl 4 mg 08/14/20 03:41 08/15/20 12:04 Ondansetron Hcl 4 Mg/2 Ml Vial IVPUSH 4 mg Q8H PRN Administration Nausea and Vomiting Oxycodone HCl 5 mg 08/14/20 03:41 Oxycodone Hcl Immed Release 5 Mg Tablet PO Q6H PRN Pain, Severe (Pain Scale 7-10) Rivaroxaban 20 mg 08/14/20 17:00 08/14/20 18:40 Rivaroxaban 20 Mg Tablet PO 20 mg DAILY@1700 [facility] Administration Sodium Chloride 3 ml 08/14/20 08:00 08/15/20 08:07 0.9 % Sodium Chloride Flush 3 Ml Syringe IVFLUSH 3 ml QSHIFT [facility] Administration Labs CBC & Chem 7: 08/15/20 05:59 08/15/20 05:59 Microbiology Microbiology Results: Microbiology 08/13/20 23:39 Blood - Venous Blood Culture - Preliminary Gram negative maria eugenia 08/13/20 23:06 Blood - Venous Blood Culture - Preliminary No growth after 24 hours. Assessment and Plan (1) Gallstone pancreatitis: Status: Acute Assessment and Plan: 80-year-old male with past medical history of CAD, COPD, HTN, hyperlipidemia among others who presents to the hospital with nausea, and abdominal pain found to have acute pancreatitis sepsis poa due to gallstone pancreatitis/ cholangitis blood culture with GNR lfts improving, pain improving continue rocephin, flagyl, IVF, montior labs surgery following GARTH resolved with ivf P AFib - stable, in sinus - continue rivaroxaban diabetes hodling metformin insulin DVT prophylaxis: Rivaroxaban
[2020-08-15] MEDS: Lactated Ringers 1,000 ML 100 ML IVCONT ×2 (14:17→18:30)
[2020-08-15 16:30] LABS: Glucose, Whole Blood 68 mg/dL (60-115)
[2020-08-15 21:24] LABS: Glucose, Whole Blood 70 mg/dL (60-115)
[2020-08-15] MEDS: Atorvastatin Calcium 80 MG TABLET PO (21:43)
[2020-08-15] MEDS: Melatonin 3 MG TABLET 6 MG PO (21:43)
[2020-08-16] VITALS: BP 140/63; PULSE 63; RESP 18; TEMP 36.8; O2SAT 94
[2020-08-16] MEDS: Lactated Ringers 1,000 ML 100 ML IVCONT ×2 (04:51→13:25)
[2020-08-16] MEDS: cefTRIAXone sodium 1 GM in 0.9 % Sodium Chloride 50 ML IV (05:08)
[2020-08-16] MEDS: metroNIDAZOLE/NS 500 MG/100 ML PIGGYBACK 100 MG IV ×3 (05:08→20:50)
[2020-08-16 06:45] LABS: Hematocrit 27.3 % (42-52); Hemoglobin 8.8 g/dl (14.0-18.0); Mean Corpuscular HGB Conc 32.2 g/dl (31.0-36.0); Mean Corpuscular Hemoglobin 27.2 pg (27.0-33.0); Mean Corpuscular Volume 84.5 fL (80-98); Mean Platelet Volume 9.8 fL (9.4-12.4); Platelet Count 292 X10*3/uL (160-400); Red Blood Count 3.23 X10*6/uL (4.60-5.80); Red Cell Distribution Width 14.8 % (11.0-16.0); White Blood Count 10.3 X10*3/uL (4.8-10.8)
[2020-08-16 07:10] LABS: Glucose, Whole Blood 69 mg/dL (60-115)
[2020-08-16 07:17] LABS: Alanine Aminotransferase 218 U/L (0-40); Albumin Level 3.5 g/dL (3.5-5.0); Alkaline Phosphatase 180 U/L (39-117); Anion Gap 16 (12-20); Aspartate Amino Transferase 104 U/L (5-37); Bilirubin Direct 0.4 mg/dL (0.0-0.5); Bilirubin Total 0.9 mg/dL (0.0-1.0); Blood Urea Nitrogen 14 mg/dL (9-16); Calcium 8.7 mg/dL (8.4-10.2); Carbon Dioxide 19 mmol/L (22-29); Chloride 106 mmol/L (96-108); Estimated Glomerular Filt Rate > 60; Glucose Fasting 67 mg/dL (60-99); Potassium 3.8 mmol/L (3.3-5.1); Sodium 137 mmol/L (135-145); Total Protein 5.8 g/dL (6.5-8.0)
[2020-08-16 07:46] VITALS: BP 192/83; PULSE 77; RESP 19; TEMP 37.3; O2SAT 95
[2020-08-16 07:52] VITALS: BP 192/83; PULSE 77
[2020-08-16] MEDS: 0.9 % Sodium Chloride Flush 3 ML SYRINGE IVFLUSH ×3 (07:52→23:59)
[2020-08-16] MEDS: ondansetron HCL 4 MG/2 ML VIAL IVPUSH (07:52)
[2020-08-16] MEDS: lisinopriL 10 MG TABLET PO (07:52)
[2020-08-16 10:05] LABS: Lipase 2294 U/L (8-78)
[2020-08-16 11:13] LABS: Glucose, Whole Blood 90 mg/dL (60-115)
[2020-08-16 11:40] VITALS: BP 150/60; PULSE 59; RESP 17; TEMP 37.1
[2020-08-16 15:36] VITALS: BP 120/76; PULSE 62; RESP 18; TEMP 37.1; O2SAT 96
[2020-08-16 16:15] LABS: Glucose, Whole Blood 101 mg/dL (60-115)
--- NOTE | 2020-08-16 17:09 | P.PNIM_ITS ---
Subjective Subjective Date of Service: 08/16/20 Interval History: sepsis poa due to gallstone pancreatitis/ cholangitis Review of Systems Abdominal pain seems to be slowly improving. Seems better than yesterday, Denies any shortness of breath or chest pain or fevers. Physical Exam Vital Signs: Vital Signs: Last Vital Signs Temp 98.8 F 08/16/20 15:36 Pulse 62 08/16/20 15:36 Resp 18 08/16/20 15:36 BP 120/76 08/16/20 15:36 Pulse Ox 96 08/16/20 15:36 Body Mass Index 27.6 Physical exam: Cvs: rrr, [id number] , no murmur res: clear to auscultation ,no rhonchii or wheezing abd: no rebound or guarding epigatric tenderseems improvig, , bs present. ext pulses present , no cyanosis neuro: axo3 , nonfocal. Objective Data Current Medications Generic Name Dose Route Start Last Admin Trade Name Freq PRN Reason Stop Dose Admin Acetaminophen 650 mg 08/14/20 03:41 Acetaminophen 325 Mg Tablet PO Q6H PRN Pain, Mild (Pain Scale 1-3) Al Hydroxide/Mg Hydroxide 30 ml 08/14/20 03:41 Magnesium Hydrox/Alum Hydrox 30 Ml Oral.Susp PO Q4H PRN Heartburn/Nausea Atorvastatin Calcium 80 mg 08/15/20 21:00 08/15/20 21:43 Atorvastatin Calcium 80 Mg Tablet PO 80 mg BEDTIME [facility] Administration Ceftriaxone Sodium 1 gm/ 50 mls @ 100 mls/hr 08/14/20 04:00 08/16/20 05:47 Sodium Chloride IV Infused Q24H [facility] Infusion Metronidazole 500 mg in 100 mls @ 100 mls/hr 08/14/20 05:00 08/16/20 13:31 Flagyl IV Infused Q8H [facility] Infusion Lactated Ringer's 1,000 mls @ 100 mls/hr 08/14/20 06:30 08/16/20 13:25 Lr IVCONT 100 mls/hr .Q10H [facility] Administration Insulin Human Lispro 0 unit 08/14/20 07:30 08/16/20 16:38 Insulin Lispro 100 Unit/Ml 3 Ml Vial SUBCUT Not Given QIDACHS [facility] Protocol Lisinopril 10 mg 08/14/20 09:00 08/16/20 07:52 Lisinopril 10 Mg Tablet PO 10 mg DAILY [facility] Administration Protocol Melatonin 6 mg 08/15/20 21:19 08/15/20 21:43 Melatonin 3 Mg Tablet PO 6 mg BEDTIME PRN Administration Insomnia Ondansetron HCl 4 mg 08/14/20 03:41 08/16/20 07:52 Ondansetron Hcl 4 Mg/2 Ml Vial IVPUSH 4 mg Q8H PRN Administration Nausea and Vomiting Oxycodone HCl 5 mg 08/14/20 03:41 Oxycodone Hcl Immed Release 5 Mg Tablet PO Q6H PRN Pain, Severe (Pain Scale 7-10) Rivaroxaban 20 mg 08/14/20 17:00 08/15/20 18:24 Rivaroxaban 20 Mg Tablet PO Not Given DAILY@1700 [facility] Sodium Chloride 3 ml 08/14/20 08:00 08/16/20 13:29 0.9 % Sodium Chloride Flush 3 Ml Syringe IVFLUSH 3 ml QSHIFT [facility] Administration Labs CBC & Chem 7: 08/16/20 05:58 08/16/20 05:58 Microbiology Microbiology Results: Microbiology 08/13/20 23:39 Blood - Venous Blood Culture - Final Escherichia coli 08/13/20 23:06 Blood - Venous Blood Culture - Preliminary No growth after 48 hours. Assessment and Plan (1) Gallstone pancreatitis: Status: Acute Assessment and Plan: 80-year-old male with past medical history of CAD, COPD, HTN, hyperlipidemia among others who presents to the hospital with nausea, and abdominal pain found to have acute pancreatitis 1.sepsis poa due to gallstone pancreatitis/ cholangitis blood culture with GNR lfts improving, pain improving continue rocephin, flagyl, IVF, montior labs surgery following 2.GARTH resolved with ivf 3.AFib - stable, in sinus - continue rivaroxaban 4.diabetes: fs 90-100 hodling metformin insulin avoid coverage below 200 mg /dl DVT prophylaxis: Rivaroxaban
--- NOTE | 2020-08-16 17:13 | PM.PNGS ---
Subjective Subjective Date of Service: 08/16/20 Interval history: says he feels 100% better compared to on admission occ'l nausea and bloating Physical Exam Vital Signs: Vital Signs: Last Vital Signs Temp 98.8 F 08/16/20 15:36 Pulse 62 08/16/20 15:36 Resp 18 08/16/20 15:36 BP 120/76 08/16/20 15:36 Pulse Ox 96 08/16/20 15:36 Body Mass Index 27.6 Laboratory Results - last 24 hr 08/15/20 08/16/20 08/16/20 21:21 05:58 05:58 WBC 10.3 RBC 3.23 L Hgb 8.8 L Hct 27.3 L MCV 84.5 MCH 27.2 MCHC 32.2 RDW 14.8 Plt Count 292 MPV 9.8 Absolute Nucleated RBC 0.000 Nucleated RBC % (a uto) 0.0 Sodium 137 Potassium 3.8 Chloride 106 Carbon Dioxide 19 L Anion Gap 16 BUN 14 Creatinine 0.86 Estim Creat Clear Calc 80.0 Estimated GFR > 60 POC Glucose 70 Fasting Glucose 67 Calcium 8.7 Total Bilirubin 0.9 Direct Bilirubin 0.4 AST 104 H ALT 218 H Alkaline Phosphata se 180 H Total Protein 5.8 L Albumin 3.5 Lipase 2294 H 08/16/20 08/16/20 08/16/20 07:07 10:56 16:12 WBC RBC Hgb Hct MCV MCH MCHC RDW Plt Count MPV Absolute Nucleated RBC Nucleated RBC % (a uto) Sodium Potassium Chloride Carbon Dioxide Anion Gap BUN Creatinine Estim Creat Clear Calc Estimated GFR POC Glucose 69 90 101 Fasting Glucose Calcium Total Bilirubin Direct Bilirubin AST ALT Alkaline Phosphata se Total Protein Albumin Lipase Const: General: comfortable and no acute distress Eyes: Sclerae: sclerae normal Resp: Effort & Inspection: normal respiratory effort Cardio: Rhythm: regular rhythm GI: Palpation (GI): Soft to palpation, not firm and nontender Progress Note: A&P Assessment and plan (1) Gallstone pancreatitis: Status: Acute Assessment and Plan: abd soft, nontender lipase still high but trending down no fever has benign exam MRI does not show CBD stone await resolution of pancreatitis prior to consideration of cholecystectomy will follow dw pt and [place] follow LFTs and lipase Fall Risk Details Current Medications: Current Medications Generic Name Dose Route Start Last Admin Trade Name Freq PRN Reason Stop Dose Admin Acetaminophen 650 mg 08/14/20 03:41 Acetaminophen 325 Mg Tablet PO Q6H PRN Pain, Mild (Pain Scale 1-3) Al Hydroxide/Mg Hydroxide 30 ml 08/14/20 03:41 Magnesium Hydrox/Alum Hydrox 30 Ml Oral.Susp PO Q4H PRN Heartburn/Nausea Atorvastatin Calcium 80 mg 08/15/20 21:00 08/15/20 21:43 Atorvastatin Calcium 80 Mg Tablet PO 80 mg BEDTIME [facility] Administration Ceftriaxone Sodium 1 gm/ 50 mls @ 100 mls/hr 08/14/20 04:00 08/16/20 05:47 Sodium Chloride IV Infused Q24H [facility] Infusion Metronidazole 500 mg in 100 mls @ 100 mls/hr 08/14/20 05:00 08/16/20 13:31 Flagyl IV Infused Q8H [facility] Infusion Lactated Ringer's 1,000 mls @ 100 mls/hr 08/14/20 06:30 08/16/20 13:25 Lr IVCONT 100 mls/hr .Q10H [facility] Administration Insulin Human Lispro 0 unit 08/14/20 07:30 08/16/20 16:38 Insulin Lispro 100 Unit/Ml 3 Ml Vial SUBCUT Not Given QIDACHS [facility] Protocol Lisinopril 10 mg 08/14/20 09:00 08/16/20 07:52 Lisinopril 10 Mg Tablet PO 10 mg DAILY [facility] Administration Protocol Melatonin 6 mg 08/15/20 21:19 08/15/20 21:43 Melatonin 3 Mg Tablet PO 6 mg BEDTIME PRN Administration Insomnia Ondansetron HCl 4 mg 08/14/20 03:41 08/16/20 07:52 Ondansetron Hcl 4 Mg/2 Ml Vial IVPUSH 4 mg Q8H PRN Administration Nausea and Vomiting Oxycodone HCl 5 mg 08/14/20 03:41 Oxycodone Hcl Immed Release 5 Mg Tablet PO Q6H PRN Pain, Severe (Pain Scale 7-10) Rivaroxaban 20 mg 08/14/20 17:00 08/15/20 18:24 Rivaroxaban 20 Mg Tablet PO Not Given DAILY@1700 [facility] Sodium Chloride 3 ml 08/14/20 08:00 08/16/20 13:29 0.9 % Sodium Chloride Flush 3 Ml Syringe IVFLUSH 3 ml QSHIFT [facility] Administration Time Spent With Patient Time: Total time spent is greater than 50% in coordination of care (as documented) at patient's floor/unit and/or counseling patient: Time with patient: 25 - 35 minutes Procedures Date of Service Date of Service: 08/16/20
[2020-08-16] MEDS: Magnesium Hydrox/Alum Hydrox 30 ML ORAL.SUSP PO (17:27)
[2020-08-16 19:23] VITALS: BP 136/72; PULSE 71; RESP 16; TEMP 37.2; O2SAT 96
[2020-08-16] MEDS: Simethicone 80 MG TAB.CHEW PO (20:45)
[2020-08-16 20:47] LABS: Glucose, Whole Blood 112 mg/dL (60-115)
--- NOTE | 2020-08-16 20:54 | PC.NURSE ---
P: ASSUMED CARE AT 1530. PATIENT IS ALERT AND ORIENTED, QUESTIONED HIS XARELTO 1700 ADMINISTRATION, AND SAID DR. VARGAS HAD ADVISED TO HOLD THIS I: PATIENT IN ATRIAL FIBRILLATION, RATE CONTROLLED, SEQUENTIALS ORDERED, AND NOT WEARING THEM; PATIENT CONSENTS TO WEAR SEQUENTIALS AND THESE WERE APPLIED; DISCUSSED WITH DR. VARGAS, WHO DEFERRED TO HOSPITALIST, DISCUSSED WITH DR. BECERRA, WHO SAID TO CONTINUE XARELTO IN ACCORDANCE WITH HIS MOST RECENT NOTE; E: DISCUSSED WITH PATIENT WHO REFUSED XARELTO, EDUCATION WAS PROVIDED AND PATIENT HAS GOOD TEACHBACK, ACKNOWLEDGED INCREASED STROKE RISK HOLDING XARELTO, BUT CONTINUED TO REFUSE. IS AWARE.
[2020-08-16] MEDS: oxyCODONE HCl Immed Release 5 MG TABLET PO (22:00)
[2020-08-16] MEDS: Atorvastatin Calcium 80 MG TABLET PO (22:01)
[2020-08-16] MEDS: Melatonin 3 MG TABLET 6 MG PO (22:01)
[2020-08-17] VITALS (10 sets, daily range): BP systolic 158–188; BP diastolic 60–82; PULSE 70–89; RESP 17–20; TEMP 36.2–37.7; O2SAT 94–98
[2020-08-17] MEDS: ondansetron HCL 4 MG/2 ML VIAL IVPUSH ×2 (00:21→07:43)
[2020-08-17] MEDS: Lactated Ringers 1,000 ML 100 ML IVCONT (00:33)
[2020-08-17] MEDS: cefTRIAXone sodium 1 GM in 0.9 % Sodium Chloride 50 ML IV (04:03)
[2020-08-17] MEDS: metroNIDAZOLE/NS 500 MG/100 ML PIGGYBACK 100 MG IV ×3 (04:31→20:36)
[2020-08-17 07:09] LABS: Glucose, Whole Blood 99 mg/dL (60-115)
[2020-08-17] MEDS: lisinopriL 10 MG TABLET PO (07:43)
--- NOTE | 2020-08-17 07:58 | P.PNGS_ITS ---
Subjective Subjective Date of Service: 08/17/20 Interval history: says he had some nausea last night also with bloating denies pain but has discomfort no fever says he does not like effect of Oxycodone Physical Exam Vital Signs: Vital Signs: Last Vital Signs Temp 98.0 F 08/17/20 07:20 Pulse 74 08/17/20 07:43 Resp 18 08/17/20 07:20 BP 188/78 H 08/17/20 07:43 Pulse Ox 98 08/17/20 07:20 Body Mass Index 27.6 Const: General: no acute distress Resp: Effort & Inspection: normal respiratory effort Cardio: Rhythm: regular rhythm GI: Palpation (GI): Soft to palpation, not firm and nontender Progress Note: A&P Assessment and plan (1) Gallstone pancreatitis: Status: Acute Assessment and Plan: no abdl pain, no fever but continues to have discomfort lipase still markedly elevated recheck LFTs, lipase today - ordered abd soft and benign plan is eventual cholecystectomy continue abx okay to have clear liquids Fall Risk Details Current Medications: Current Medications Generic Name Dose Route Start Last Admin Trade Name Freq PRN Reason Stop Dose Admin Acetaminophen 650 mg 08/14/20 03:41 Acetaminophen 325 Mg Tablet PO Q6H PRN Pain, Mild (Pain Scale 1-3) Al Hydroxide/Mg Hydroxide 30 ml 08/14/20 03:41 08/16/20 17:27 Magnesium Hydrox/Alum Hydrox 30 Ml Oral.Susp PO 30 ml Q4H PRN Administration Heartburn/Nausea Atorvastatin Calcium 80 mg 08/15/20 21:00 08/16/20 22:01 Atorvastatin Calcium 80 Mg Tablet PO 80 mg BEDTIME [facility] Administration Ceftriaxone Sodium 1 gm/ 50 mls @ 100 mls/hr 08/14/20 04:00 08/17/20 04:35 Sodium Chloride IV Infused Q24H [facility] Infusion Metronidazole 500 mg in 100 mls @ 100 mls/hr 08/14/20 05:00 08/17/20 06:02 Flagyl IV Infused Q8H [facility] Infusion Insulin Human Lispro 0 unit 08/14/20 07:30 08/17/20 07:40 Insulin Lispro 100 Unit/Ml 3 Ml Vial SUBCUT Not Given QIDACHS [facility] Protocol Lisinopril 10 mg 08/14/20 09:00 08/17/20 07:43 Lisinopril 10 Mg Tablet PO 10 mg DAILY [facility] Administration Protocol Melatonin 6 mg 08/15/20 21:19 08/16/20 22:01 Melatonin 3 Mg Tablet PO 6 mg BEDTIME PRN Administration Insomnia Ondansetron HCl 4 mg 08/14/20 03:41 08/17/20 07:43 Ondansetron Hcl 4 Mg/2 Ml Vial IVPUSH 4 mg Q8H PRN Administration Nausea and Vomiting Oxycodone HCl 5 mg 08/14/20 03:41 08/16/20 22:00 Oxycodone Hcl Immed Release 5 Mg Tablet PO 5 mg Q6H PRN Administration Pain, Severe (Pain Scale 7-10) Rivaroxaban 20 mg 08/14/20 17:00 08/16/20 18:05 Rivaroxaban 20 Mg Tablet PO Not Given DAILY@1700 [facility] Sodium Chloride 3 ml 08/14/20 08:00 08/17/20 07:43 0.9 % Sodium Chloride Flush 3 Ml Syringe IVFLUSH Not Given QSHIFT [facility] Time Spent With Patient Time: Total time spent is greater than 50% in coordination of care (as documented) at patient's floor/unit and/or counseling patient: Time with patient: 15 - 24 minutes Procedures Date of Service Date of Service: 08/17/20
[2020-08-17 09:08] LABS: Hematocrit 29.6 % (42-52); Hemoglobin 9.6 g/dl (14.0-18.0); Mean Corpuscular HGB Conc 32.4 g/dl (31.0-36.0); Mean Corpuscular Volume 83.4 fL (80-98); Mean Platelet Volume 9.8 fL (9.4-12.4); Platelet Count 319 X10*3/uL (160-400); Red Blood Count 3.55 X10*6/uL (4.60-5.80); Red Cell Distribution Width 14.7 % (11.0-16.0); White Blood Count 12.2 X10*3/uL (4.8-10.8)
[2020-08-17 09:54] LABS: Alanine Aminotransferase 154 U/L (0-40); Albumin Level 3.5 g/dL (3.5-5.0); Alkaline Phosphatase 172 U/L (39-117); Amylase 326 U/L (28-100); Anion Gap 16 (12-20); Aspartate Amino Transferase 54 U/L (5-37); Bilirubin Direct 0.4 mg/dL (0.0-0.5); Bilirubin Total 0.7 mg/dL (0.0-1.0); Blood Urea Nitrogen 10 mg/dL (9-16); Calcium 8.9 mg/dL (8.4-10.2); Carbon Dioxide 22 mmol/L (22-29); Chloride 103 mmol/L (96-108); Creatinine Clr Calc Pharmacy 92.9; Estimated Glomerular Filt Rate > 60; Glucose Random 97 mg/dL (60-115); Iron 20 mcg/dL (45-160); Percent Iron Saturation 9 % (15-50); Potassium 3.7 mmol/L (3.3-5.1); Sodium 137 mmol/L (135-145); Total Iron Binding Capacity 232 mcg/dL (228-428); Unsaturated Iron Binding 212 ug/dL
[2020-08-17 10:06] LABS: Ferritin 66 ng/mL (20-250); Lipase 811 U/L (8-78)
[2020-08-17 10:28] LABS: Folate 14.7 ng/mL (> or = 4.0); Vitamin B12 1311 pg/mL (200-900)
[2020-08-17 10:59] LABS: Glucose, Whole Blood 93 mg/dL (60-115)
[2020-08-17] MEDS: Omeprazole 20 MG CAPSULE.DR PO ×2 (11:24→17:03)
[2020-08-17] MEDS: traZODone HCL 25 MG HALFTAB PO (11:24)
--- NOTE | 2020-08-17 12:57 | HO.PM.IMPN ---
Subjective Subjective Date of Service: 08/17/20 Interval History: abdominal gaseous senation. Denies any significant abdominal pain or nausea vomiting or diarrhea. Physical Exam Vital Signs: Vital Signs: Last Vital Signs Temp 99.0 F 08/17/20 11:12 Pulse 75 08/17/20 11:12 Resp 18 08/17/20 11:12 BP 180/82 H 08/17/20 11:12 Pulse Ox 95 08/17/20 11:12 Body Mass Index 27.6 Physical exam: Constitutional:not in acute distress Cvs: rrr, [id number] , no murmur res: clear to auscultation ,no rhonchii or wheezing abd: no rebound or guarding epigatric tenderseems improvig, , bs present. ext pulses present , no cyanosis neuro: axo3 , nonfocal Objective Data Current Medications Generic Name Dose Route Start Last Admin Trade Name Freq PRN Reason Stop Dose Admin Acetaminophen 650 mg 08/14/20 03:41 Acetaminophen 325 Mg Tablet PO Q6H PRN Pain, Mild (Pain Scale 1-3) Al Hydroxide/Mg Hydroxide 30 ml 08/14/20 03:41 08/16/20 17:27 Magnesium Hydrox/Alum Hydrox 30 Ml Oral.Susp PO 30 ml Q4H PRN Administration Heartburn/Nausea Atorvastatin Calcium 80 mg 08/15/20 21:00 08/16/20 22:01 Atorvastatin Calcium 80 Mg Tablet PO 80 mg BEDTIME [facility] Administration Ceftriaxone Sodium 1 gm/ 50 mls @ 100 mls/hr 08/14/20 04:00 08/17/20 04:35 Sodium Chloride IV Infused Q24H [facility] Infusion Metronidazole 500 mg in 100 mls @ 100 mls/hr 08/14/20 05:00 08/17/20 06:02 Flagyl IV Infused Q8H [facility] Infusion Insulin Human Lispro 0 unit 08/14/20 07:30 08/17/20 11:22 Insulin Lispro 100 Unit/Ml 3 Ml Vial SUBCUT Not Given QIDACHS [facility] Protocol Lisinopril 10 mg 08/14/20 09:00 08/17/20 07:43 Lisinopril 10 Mg Tablet PO 10 mg DAILY [facility] Administration Protocol Melatonin 6 mg 08/15/20 21:19 08/16/20 22:01 Melatonin 3 Mg Tablet PO 6 mg BEDTIME PRN Administration Insomnia Omeprazole 20 mg 08/17/20 11:00 08/17/20 11:24 Omeprazole 20 Mg Capsule. PO 20 mg BID@0630,1630 [facility] Administration Ondansetron HCl 4 mg 08/14/20 03:41 08/17/20 07:43 Ondansetron Hcl 4 Mg/2 Ml Vial IVPUSH 4 mg Q8H PRN Administration Nausea and Vomiting Rivaroxaban 20 mg 08/14/20 17:00 08/16/20 18:05 Rivaroxaban 20 Mg Tablet PO Not Given DAILY@1700 [facility] Sodium Chloride 3 ml 08/14/20 08:00 08/17/20 07:43 0.9 % Sodium Chloride Flush 3 Ml Syringe IVFLUSH Not Given QSHIFT [facility] Labs CBC & Chem 7: 08/17/20 08:29 08/17/20 08:29 Microbiology Microbiology Results: Microbiology 08/13/20 23:39 Blood - Venous Blood Culture - Final Escherichia coli 08/13/20 23:06 Blood - Venous Blood Culture - Preliminary No growth after 48 hours. Assessment and Plan (1) Gallstone pancreatitis: Status: Acute Assessment and Plan: 80-year-old male with past medical history of CAD, COPD, HTN, hyperlipidemia among others who presents to the hospital with nausea, and abdominal pain found to have acute pancreatitis 1.sepsis poa due to gallstone pancreatitis/ cholangitis blood culture with GNR lfts improving, pain improving continue rocephin, flagyl, montior labs-seems improving surgery following-plan for cholecystomy 2.GARTH:resolved with ivf. 3.AFib - stable, in sinus - continue rivaroxaban 4.diabetes: fs 90's asymptomatic hodling metformin insulin avoid coverage below 200 mg /dl DVT prophylaxis: Rivaroxaban
[2020-08-17] MEDS: amLODIPine Besylate 2.5 MG TABLET PO (13:51)
[2020-08-17 15:52] LABS: Glucose, Whole Blood 91 mg/dL (60-115)
--- NOTE | 2020-08-17 16:40 | MHC.CM.PN ---
Male 80 DX [place]. Surgery is planned 24-48 hrs. DP Home with [facility] if needed. CM will follow.
[2020-08-17] MEDS: 0.9 % Sodium Chloride Flush 3 ML SYRINGE IVFLUSH (17:03)
[2020-08-17] MEDS: Lactated Ringers 1,000 ML 60 ML IVCONT (17:58)
[2020-08-17 20:23] LABS: Glucose, Whole Blood 114 mg/dL (60-115)
[2020-08-17] MEDS: Atorvastatin Calcium 80 MG TABLET PO (20:36)
[2020-08-17] MEDS: Melatonin 3 MG TABLET 6 MG PO (21:10)
[2020-08-17] MEDS: traMADoL HCL 50 MG TABLET 25 MG PO (21:13)
[2020-08-18] VITALS (11 sets, daily range): BP systolic 156–188; BP diastolic 62–82; PULSE 72–86; RESP 16–20; TEMP 36.3–37.2; O2SAT 89–97; BMI 27.6
[2020-08-18] MEDS: 0.9 % Sodium Chloride Flush 3 ML SYRINGE IVFLUSH (01:00)
[2020-08-18] MEDS: cefTRIAXone sodium 1 GM in 0.9 % Sodium Chloride 50 ML IV (04:27)
[2020-08-18] MEDS: metroNIDAZOLE/NS 500 MG/100 ML PIGGYBACK 100 MG IV ×2 (05:14→15:36)
[2020-08-18] MEDS: Omeprazole 20 MG CAPSULE.DR PO ×2 (05:15→17:43)
[2020-08-18 06:44] LABS: INTERNATIONAL NORM RATIO 1.3 (0.9-1.1); Prothrombin Time 14.9 SEC (10.8-13.0)
[2020-08-18 06:49] LABS: Hematocrit 28.3 % (42-52); Hemoglobin 9.1 g/dl (14.0-18.0); Mean Corpuscular HGB Conc 32.2 g/dl (31.0-36.0); Mean Platelet Volume 9.8 fL (9.4-12.4); Platelet Count 319 X10*3/uL (160-400); Red Blood Count 3.37 X10*6/uL (4.60-5.80); Red Cell Distribution Width 14.6 % (11.0-16.0); White Blood Count 12.2 X10*3/uL (4.8-10.8)
[2020-08-18 07:24] LABS: Glucose, Whole Blood 82 mg/dL (60-115)
[2020-08-18 07:56] LABS: Lipase 421 U/L (8-78)
[2020-08-18 08:06] LABS: Alanine Aminotransferase 108 U/L (0-40); Albumin Level 3.2 g/dL (3.5-5.0); Alkaline Phosphatase 140 U/L (39-117); Aspartate Amino Transferase 34 U/L (5-37); Bilirubin Direct 0.4 mg/dL (0.0-0.5); Bilirubin Total 0.6 mg/dL (0.0-1.0); Total Protein 5.5 g/dL (6.5-8.0)
--- NOTE | 2020-08-18 08:44 | PM.EVENT ---
Event Note Date of Service: 08/18/20 Event Note: No events overnight Patient says that he had some bloating sensation, reflux Denies abdominal pain No fever Abdomen soft, no guarding rebound, right upper quadrant/epigastric tenderness WBC 12 Lipase now down to 400 I have reviewed his imaging studies including CT scan and MRI with radiologist again this morning No signs of CBD obstruction Reviewed with the patient the technique of laparoscopic cholecystectomy and possible open cholecystectomy. I explained the risks including but not limited to bleeding, infections, bowel injury, injury to the the bile duct and the liver, as well as benefits and alternatives. He says he prefers to have this done Plan to proceed with lap robyn possible open today Discussed with his Dorothy
[2020-08-18 11:22] LABS: Glucose, Whole Blood 71 mg/dL (60-115)
--- NOTE | 2020-08-18 12:13 | P.CONAN_ITS ---
COUNTS INCLUDE 234 BEDS AT THE [facility] Active Problems Active Problems: All Active Problems (Updated 08/14/20 @ 06:30 by Beto Wade MD) Gallstone pancreatitis (Acute) Sepsis (Acute) Abdominal pain (Acute) GARTH (acute kidney injury) (Acute) PVD (peripheral vascular disease) (Acute) Anemia (Acute) Bilateral leg cramps (Acute) Paroxysmal atrial fibrillation (Acute) CAD (coronary artery disease) (Acute) Hyperlipidemia (Acute) Diabetes mellitus (Acute) HTN (hypertension) (Acute) Past Medical History Medical History CAD (coronary artery disease) COPD (chronic obstructive pulmonary disease) Diabetes mellitus GERD (gastroesophageal reflux disease) History of cancer HTN (hypertension) Hyperlipidemia Paroxysmal atrial fibrillation PVD (peripheral vascular disease) Surgical History Surgical History H/O heart surgery History of arthroplasty of left hip History of lobectomy of lung Social History Social History Household Members: Spouse Housing: House Do you presently have visiting nurse or other home services: No Alcohol intake: never Patient Tobacco Use Status: Former Tobacco user service: No Meds Allergies Allergy/AdvReac Type Severity Reaction Status Date / Time No Known Allergies Allergy Verified 02/17/20 10:42 Active Medications: Current Medications Generic Name Dose Route Start Last Admin Trade Name Freq PRN Reason Stop Dose Admin Acetaminophen 650 mg 08/14/20 03:41 Acetaminophen 325 Mg Tablet PO Q6H PRN Pain, Mild (Pain Scale 1-3) Al Hydroxide/Mg Hydroxide 30 ml 08/14/20 03:41 08/16/20 17:27 Magnesium Hydrox/Alum Hydrox 30 Ml Oral.Susp PO 30 ml Q4H PRN Administration Heartburn/Nausea Atorvastatin Calcium 80 mg 08/15/20 21:00 08/17/20 20:36 Atorvastatin Calcium 80 Mg Tablet PO 80 mg BEDTIME AMBREEN Administration Ceftriaxone Sodium 1 gm/ 50 mls @ 100 mls/hr 08/14/20 04:00 08/18/20 05:06 Sodium Chloride IV Infused Q24H AMBREEN Infusion Metronidazole 500 mg in 100 mls @ 100 mls/hr 08/14/20 05:00 08/18/20 06:19 Flagyl IV Infused Q8H AMBREEN Infusion Lactated Ringer's 1,000 mls @ 60 mls/hr 08/17/20 17:30 08/18/20 10:55 Lr IVCONT Infused .[id number] [facility] Infusion Insulin Human Lispro 0 unit 08/14/20 07:30 08/18/20 11:45 Insulin Lispro 100 Unit/Ml 3 Ml Vial SUBCUT Not Given QIDACHS [facility] Protocol Lisinopril 10 mg 08/14/20 09:00 08/18/20 09:05 Lisinopril 10 Mg Tablet PO Not Given DAILY [facility] Protocol Melatonin 6 mg 08/15/20 21:19 08/17/20 21:10 Melatonin 3 Mg Tablet PO 6 mg BEDTIME PRN Administration Insomnia Omeprazole 20 mg 08/17/20 11:00 08/18/20 05:15 Omeprazole 20 Mg Capsule.Dr PO 20 mg BID@0630,1630 [facility] Administration Ondansetron HCl 4 mg 08/14/20 03:41 08/17/20 07:43 Ondansetron Hcl 4 Mg/2 Ml Vial IVPUSH 4 mg Q8H PRN Administration Nausea and Vomiting Rivaroxaban 20 mg 08/14/20 17:00 08/17/20 17:00 Rivaroxaban 20 Mg Tablet PO Not Given DAILY@1700 [facility] Sodium Chloride 3 ml 08/14/20 08:00 08/18/20 09:05 0.9 % Sodium Chloride Flush 3 Ml Syringe IVFLUSH Not Given QSHIFT [facility] Tramadol HCl 25 mg 08/17/20 13:27 08/17/20 21:13 Tramadol Hcl 50 Mg Tablet PO 25 mg Q6H PRN Administration Pain, Mild (Pain Scale 1-3) Home Medications Medication Instructions Recorded Confirmed Last Taken Type atorvastatin 1 tab PO DAILY 08/14/20 08/14/20 Unknown History lisinopril 1 tab PO DAILY 08/14/20 08/14/20 Unknown History metformin 1 tab PO BID 08/14/20 08/14/20 Unknown History rivaroxaban [Xarelto] 1 tab PO QPM 08/14/20 08/14/20 Unknown History Exam Exam Date and Time: August 18, 2020 1213 Height,Weight and Vital Signs: Height 6 ft 1 in Weight 209 lb 7.026 oz Last Vital Signs Temp 908.7 F H 08/18/20 11:11 Pulse 79 08/18/20 11:11 Resp 18 08/18/20 11:11 BP 188/82 H 08/18/20 11:11 Pulse Ox 95 08/18/20 11:11 Pertinent Lab Results Pertinent Lab Results: Laboratory Tests 08/13/20 08/13/20 08/13/20 22:18 23:06 23:06 WBC 18.1 H RBC 3.74 L Hgb 10.3 L Hct 31.7 L MCV 84.8 MCH 27.5 MCHC 32.5 RDW 15.1 Plt Count 322 MPV 9.7 Immature Gran % (Auto) 0.4 Neut % (Auto) 86.8 H Lymph % (Auto) 2.5 L [place] % (Auto) 10.0 Eos % (Auto) 0.1 Baso % (Auto) 0.2 Lymph # (Auto) 0.5 L [place] # (Auto) 1.8 H Eos # (Auto) 0.0 Baso # (Auto) 0.0 Abs Immat Gran (auto) 0.07 H Absolute Neuts (auto) 15.7 H Absolute Nucleated RBC 0.000 Nucleated RBC % (auto) 0.0 Smear Tech's Comments VERIFIED PT INR Sodium 140 Potassium 3.9 Chloride 105 Carbon Dioxide 20 L Anion Gap 19 BUN 31 H Creatinine 2.43 H Estim Creat Clear Calc 26.1 Estimated GFR 26 POC Glucose 88 Random Glucose 96 Fasting Glucose Lactic Acid Calcium 9.4 Iron TIBC % Saturation Unsat Iron Binding Ferritin Total Bilirubin 2.9 H Direct Bilirubin AST 434 H ALT 443 H Alkaline Phosphatase 224 H B-Natriuretic Peptide Total Protein 6.8 Albumin 4.2 Triglycerides Amylase 3415 H Lipase 6066 H Vitamin B12 Folate Urine Color Urine Appearance Urine pH Ur Specific [place] Urine Protein Urine Glucose (UA) Urine Ketones Urine Blood Urine Nitrite Ur Leukocyte Esterase Urine RBC Urine WBC Ur Squamous Epith Cells Ur Renal Epithelial Cell Amorphous Sediment Urine Bacteria Granular Casts Urine Sperm COVID-19 (LILI) COVID-19 Clin Com Blood Type Antibody Screen 08/13/20 08/13/20 08/13/20 23:06 23:06 23:06 WBC RBC Hgb Hct MCV MCH MCHC RDW Plt Count MPV Immature Gran % (Auto) Neut % (Auto) Lymph % (Auto) [place] % (Auto) Eos % (Auto) Baso % (Auto) Lymph # (Auto) [place] # (Auto) Eos # (Auto) Baso # (Auto) Abs Immat Gran (auto) Absolute Neuts (auto) Absolute Nucleated RBC Nucleated RBC % (auto) Smear Tech's Comments PT 16.8 H INR 1.4 H Sodium Potassium Chloride Carbon Dioxide Anion Gap BUN Creatinine Estim Creat Clear Calc Estimated GFR POC Glucose Random Glucose Fasting Glucose Lactic Acid 1.7 Calcium Iron TIBC % Saturation Unsat Iron Binding Ferritin Total Bilirubin Direct Bilirubin AST ALT Alkaline Phosphatase B-Natriuretic Peptide 83 Total Protein Albumin Triglycerides Amylase Lipase Vitamin B12 Folate Urine Color Urine Appearance Urine pH Ur Specific [place] Urine Protein Urine Glucose (UA) Urine Ketones Urine Blood Urine Nitrite Ur Leukocyte Esterase Urine RBC Urine WBC Ur Squamous Epith Cells Ur Renal Epithelial Cell Amorphous Sediment Urine Bacteria Granular Casts Urine Sperm COVID-19 (LILI) [employer] Blood Type Antibody Screen 08/13/20 08/14/20 08/14/20 23:39 07:18 08:24 WBC RBC Hgb Hct MCV MCH MCHC RDW Plt Count MPV Immature Gran % (Auto) Neut % (Auto) Lymph % (Auto) [place] % (Auto) Eos % (Auto) Baso % (Auto) Lymph # (Auto) [place] # (Auto) Eos # (Auto) Baso # (Auto) Abs Immat Gran (auto) Absolute Neuts (auto) Absolute Nucleated RBC Nucleated RBC % (auto) Smear Tech's Comments PT INR Sodium Potassium Chloride Carbon Dioxide Anion Gap BUN Creatinine Estim Creat Clear Calc Estimated GFR POC Glucose 94 Random Glucose Fasting Glucose Lactic Acid Calcium Iron TIBC % Saturation Unsat Iron Binding Ferritin Total Bilirubin Direct Bilirubin AST ALT Alkaline Phosphatase B-Natriuretic Peptide Total Protein Albumin Triglycerides 45 Amylase Lipase Vitamin B12 Folate Urine Color Urine Appearance Urine pH Ur Specific [place] Urine Protein Urine Glucose (UA) Urine Ketones Urine Blood Urine Nitrite Ur Leukocyte Esterase Urine RBC Urine WBC Ur Squamous Epith Cells Ur Renal Epithelial Cell Amorphous Sediment Urine Bacteria Granular Casts Urine Sperm COVID-19 (LILI) Negative [employer] [id number]-[id number] See Note Blood Type Antibody Screen 08/14/20 08/14/20 08/14/20 11:22 12:50 12:54 WBC RBC Hgb Hct MCV MCH MCHC RDW Plt Count MPV Immature Gran % (Auto) Neut % (Auto) Lymph % (Auto) [place] % (Auto) Eos % (Auto) Baso % (Auto) Lymph # (Auto) [place] # (Auto) Eos # (Auto) Baso # (Auto) Abs Immat Gran (auto) Absolute Neuts (auto) Absolute Nucleated RBC Nucleated RBC % (auto) Smear Tech's Comments PT INR Sodium Potassium Chloride Carbon Dioxide Anion Gap BUN Creatinine Estim Creat Clear Calc Estimated GFR POC Glucose 66 75 Random Glucose Fasting Glucose Lactic Acid Calcium Iron TIBC % Saturation Unsat Iron Binding Ferritin Total Bilirubin Direct Bilirubin AST ALT Alkaline Phosphatase B-Natriuretic Peptide Total Protein Albumin Triglycerides Amylase Lipase Vitamin B12 Folate Urine Color DARK YELLOW Urine Appearance CLOUDY Urine pH 6.0 Ur Specific [place] 1.020 Urine Protein 1+ H Urine Glucose (UA) NEG Urine Ketones NEG Urine Blood 2+ H Urine Nitrite NEG Ur Leukocyte Esterase NEG Urine RBC 1-4 Urine WBC 0-2 Ur Squamous Epith Cells TRACE Ur Renal Epithelial Cell TRACE Amorphous Sediment 1+ Urine Bacteria 1+ Granular Casts 0-2 Urine Sperm NOTED COVID-19 (LILI) COVID-19 Clin Com Blood Type Antibody Screen 08/14/20 08/14/20 08/15/20 17:25 20:30 05:59 WBC 12.6 H RBC 3.02 L Hgb 8.3 L Hct 26.0 L MCV 86.1 MCH 27.5 MCHC 31.9 RDW 15.3 Plt Count 265 MPV 10.3 Immature Gran % (Auto) 0.4 Neut % (Auto) 84.6 H Lymph % (Auto) 6.8 L [place] % (Auto) 7.3 Eos % (Auto) 0.7 Baso % (Auto) 0.2 Lymph # (Auto) 0.9 L [place] # (Auto) 0.9 Eos # (Auto) 0.1 Baso # (Auto) 0.0 Abs Immat Gran (auto) 0.05 H Absolute Neuts (auto) 10.6 H Absolute Nucleated RBC 0.000 Nucleated RBC % (auto) 0.0 Smear Tech's Comments PT INR Sodium Potassium Chloride Carbon Dioxide Anion Gap BUN Creatinine Estim Creat Clear Calc Estimated GFR POC Glucose 80 79 Random Glucose Fasting Glucose Lactic Acid Calcium Iron TIBC % Saturation Unsat Iron Binding Ferritin Total Bilirubin Direct Bilirubin AST ALT Alkaline Phosphatase B-Natriuretic Peptide Total Protein Albumin Triglycerides Amylase Lipase Vitamin B12 Folate Urine Color Urine Appearance Urine pH Ur Specific [place] Urine Protein Urine Glucose (UA) Urine Ketones Urine Blood Urine Nitrite Ur Leukocyte Esterase Urine RBC Urine WBC Ur Squamous Epith Cells Ur Renal Epithelial Cell Amorphous Sediment Urine Bacteria Granular Casts Urine Sperm COVID-19 (LILI) COVID-19 [facility] Blood Type Antibody Screen 08/15/20 08/15/20 08/15/20 05:59 07:05 10:57 WBC RBC Hgb Hct MCV MCH MCHC RDW Plt Count MPV Immature Gran % (Auto) Neut % (Auto) Lymph % (Auto) [place] % (Auto) Eos % (Auto) Baso % (Auto) Lymph # (Auto) [place] # (Auto) Eos # (Auto) Baso # (Auto) Abs Immat Gran (auto) Absolute Neuts (auto) Absolute Nucleated RBC Nucleated RBC % (auto) Smear Tech's Comments PT INR Sodium 137 Potassium 4.0 Chloride 108 Carbon Dioxide 18 L Anion Gap 15 BUN 21 H Creatinine 1.12 Estim Creat Clear Calc 61.4 Estimated GFR > 60 POC Glucose 72 81 Random Glucose 68 Fasting Glucose Lactic Acid Calcium 8.6 D Iron TIBC % Saturation Unsat Iron Binding Ferritin Total Bilirubin 1.1 H Direct Bilirubin 0.7 H AST 180 H ALT 280 H Alkaline Phosphatase 168 H D B-Natriuretic Peptide Total Protein 5.7 L Albumin 3.5 Triglycerides Amylase Lipase 3438 H Vitamin B12 Folate Urine Color Urine Appearance Urine pH Ur Specific [place] Urine Protein Urine Glucose (UA) Urine Ketones Urine Blood Urine Nitrite Ur Leukocyte Esterase Urine RBC Urine WBC Ur Squamous Epith Cells Ur Renal Epithelial Cell Amorphous Sediment Urine Bacteria Granular Casts Urine Sperm COVID-19 (LILI) COVID-19 [facility] Blood Type Antibody Screen 08/15/20 08/15/20 08/16/20 16:18 21:21 05:58 WBC 10.3 RBC 3.23 L Hgb 8.8 L Hct 27.3 L MCV 84.5 MCH 27.2 MCHC 32.2 RDW 14.8 Plt Count 292 MPV 9.8 Immature Gran % (Auto) Neut % (Auto) Lymph % (Auto) [place] % (Auto) Eos % (Auto) Baso % (Auto) Lymph # (Auto) [place] # (Auto) Eos # (Auto) Baso # (Auto) Abs Immat Gran (auto) Absolute Neuts (auto) Absolute Nucleated RBC 0.000 Nucleated RBC % (auto) 0.0 Smear Tech's Comments PT INR Sodium Potassium Chloride Carbon Dioxide Anion Gap BUN Creatinine Estim Creat Clear Calc Estimated GFR POC Glucose 68 70 Random Glucose Fasting Glucose Lactic Acid Calcium Iron TIBC % Saturation Unsat Iron Binding Ferritin Total Bilirubin Direct Bilirubin AST ALT Alkaline Phosphatase B-Natriuretic Peptide Total Protein Albumin Triglycerides Amylase Lipase Vitamin B12 Folate Urine Color Urine Appearance Urine pH Ur Specific [place] Urine Protein Urine Glucose (UA) Urine Ketones Urine Blood Urine Nitrite Ur Leukocyte Esterase Urine RBC Urine WBC Ur Squamous Epith Cells Ur Renal Epithelial Cell Amorphous Sediment Urine Bacteria Granular Casts Urine Sperm COVID-19 (LILI) COVID-19 [facility] Blood Type Antibody Screen 08/16/20 08/16/20 08/16/20 05:58 07:07 10:56 WBC RBC Hgb Hct MCV MCH MCHC RDW Plt Count MPV Immature Gran % (Auto) Neut % (Auto) Lymph % (Auto) [place] % (Auto) Eos % (Auto) Baso % (Auto) Lymph # (Auto) [place] # (Auto) Eos # (Auto) Baso # (Auto) Abs Immat Gran (auto) Absolute Neuts (auto) Absolute Nucleated RBC Nucleated RBC % (auto) Smear Tech's Comments PT INR Sodium 137 Potassium 3.8 Chloride 106 Carbon Dioxide 19 L Anion Gap 16 BUN 14 Creatinine 0.86 Estim Creat Clear Calc 80.0 Estimated GFR > 60 POC Glucose 69 90 Random Glucose Fasting Glucose 67 Lactic Acid Calcium 8.7 Iron TIBC % Saturation Unsat Iron Binding Ferritin Total Bilirubin 0.9 Direct Bilirubin 0.4 AST 104 H ALT 218 H Alkaline Phosphatase 180 H B-Natriuretic Peptide Total Protein 5.8 L Albumin 3.5 Triglycerides Amylase Lipase 2294 H Vitamin B12 Folate Urine Color Urine Appearance Urine pH Ur Specific [place] Urine Protein Urine Glucose (UA) Urine Ketones Urine Blood Urine Nitrite Ur Leukocyte Esterase Urine RBC Urine WBC Ur Squamous Epith Cells Ur Renal Epithelial Cell Amorphous Sediment Urine Bacteria Granular Casts Urine Sperm COVID-19 (LILI) COVID-19 [facility] Blood Type Antibody Screen 08/16/20 08/16/20 08/17/20 16:12 20:44 07:02 WBC RBC Hgb Hct MCV MCH MCHC RDW Plt Count MPV Immature Gran % (Auto) Neut % (Auto) Lymph % (Auto) [place] % (Auto) Eos % (Auto) Baso % (Auto) Lymph # (Auto) [place] # (Auto) Eos # (Auto) Baso # (Auto) Abs Immat Gran (auto) Absolute Neuts (auto) Absolute Nucleated RBC Nucleated RBC % (auto) Smear Tech's Comments PT INR Sodium Potassium Chloride Carbon Dioxide Anion Gap BUN Creatinine Estim Creat Clear Calc Estimated GFR POC Glucose 101 112 99 Random Glucose Fasting Glucose Lactic Acid Calcium Iron TIBC % Saturation Unsat Iron Binding Ferritin Total Bilirubin Direct Bilirubin AST ALT Alkaline Phosphatase B-Natriuretic Peptide Total Protein Albumin Triglycerides Amylase Lipase Vitamin B12 Folate Urine Color Urine Appearance Urine pH Ur Specific [place] Urine Protein Urine Glucose (UA) Urine Ketones Urine Blood Urine Nitrite Ur Leukocyte Esterase Urine RBC Urine WBC Ur Squamous Epith Cells Ur Renal Epithelial Cell Amorphous Sediment Urine Bacteria Granular Casts Urine Sperm COVID-19 (LILI) COVID-19 [facility] Blood Type Antibody Screen 08/17/20 08/17/20 08/17/20 08:29 08:29 08:29 WBC 12.2 H RBC 3.55 L Hgb 9.6 L Hct 29.6 L MCV 83.4 MCH 27.0 MCHC 32.4 RDW 14.7 Plt Count 319 MPV 9.8 Immature Gran % (Auto) Neut % (Auto) Lymph % (Auto) [place] % (Auto) Eos % (Auto) Baso % (Auto) Lymph # (Auto) [place] # (Auto) Eos # (Auto) Baso # (Auto) Abs Immat Gran (auto) Absolute Neuts (auto) Absolute Nucleated RBC 0.000 Nucleated RBC % (auto) 0.0 Smear Tech's Comments PT INR Sodium 137 Potassium 3.7 Chloride 103 Carbon Dioxide 22 Anion Gap 16 BUN 10 Creatinine 0.74 Estim Creat Clear Calc 92.9 Estimated GFR > 60 POC Glucose Random Glucose 97 D Fasting Glucose Lactic Acid Calcium 8.9 Iron 20 L TIBC 232 % Saturation 9 L Unsat Iron Binding 212 Ferritin 66 Total Bilirubin 0.7 Direct Bilirubin 0.4 AST 54 H ALT 154 H Alkaline Phosphatase 172 H B-Natriuretic Peptide Total Protein 6.0 L Albumin 3.5 Triglycerides Amylase 326 H D Lipase 811 H Vitamin B12 1311 H Folate 14.7 Urine Color Urine Appearance Urine pH Ur Specific [place] Urine Protein Urine Glucose (UA) Urine Ketones Urine Blood Urine Nitrite Ur Leukocyte Esterase Urine RBC Urine WBC Ur Squamous Epith Cells Ur Renal Epithelial Cell Amorphous Sediment Urine Bacteria Granular Casts Urine Sperm COVID-19 (LILI) COVID-19 [facility] Blood Type Antibody Screen 08/17/20 08/17/20 08/17/20 08:29 10:54 15:37 WBC RBC Hgb Cancelled Hct Cancelled MCV MCH MCHC RDW Plt Count MPV Immature Gran % (Auto) Neut % (Auto) Lymph % (Auto) [place] % (Auto) Eos % (Auto) Baso % (Auto) Lymph # (Auto) [place] # (Auto) Eos # (Auto) Baso # (Auto) Abs Immat Gran (auto) Absolute Neuts (auto) Absolute Nucleated RBC Nucleated RBC % (auto) Smear Tech's Comments PT INR Sodium Potassium Chloride Carbon Dioxide Anion Gap BUN Creatinine Estim Creat Clear Calc Estimated GFR POC Glucose 93 91 Random Glucose Fasting Glucose Lactic Acid Calcium Iron TIBC % Saturation Unsat Iron Binding Ferritin Total Bilirubin Direct Bilirubin AST ALT Alkaline Phosphatase B-Natriuretic Peptide Total Protein Albumin Triglycerides Amylase Lipase Vitamin B12 Folate Urine Color Urine Appearance Urine pH Ur Specific [place] Urine Protein Urine Glucose (UA) Urine Ketones Urine Blood Urine Nitrite Ur Leukocyte Esterase Urine RBC Urine WBC Ur Squamous Epith Cells Ur Renal Epithelial Cell Amorphous Sediment Urine Bacteria Granular Casts Urine Sperm COVID-19 (LILI) COVID-19 Clin Com Blood Type Antibody Screen 08/17/20 08/18/20 08/18/20 20:18 05:19 05:19 WBC 12.2 H RBC 3.37 L Hgb 9.1 L Hct 28.3 L MCV 84.0 MCH 27.0 MCHC 32.2 RDW 14.6 Plt Count 319 MPV 9.8 Immature Gran % (Auto) Neut % (Auto) Lymph % (Auto) [place] % (Auto) Eos % (Auto) Baso % (Auto) Lymph # (Auto) [place] # (Auto) Eos # (Auto) Baso # (Auto) Abs Immat Gran (auto) Absolute Neuts (auto) Absolute Nucleated RBC 0.000 Nucleated RBC % (auto) 0.0 Smear Tech's Comments PT INR Sodium Potassium Chloride Carbon Dioxide Anion Gap BUN Creatinine Estim Creat Clear Calc Estimated GFR POC Glucose 114 Random Glucose Fasting Glucose Lactic Acid Calcium Iron TIBC % Saturation Unsat Iron Binding Ferritin Total Bilirubin 0.6 Direct Bilirubin 0.4 AST 34 ALT 108 H Alkaline Phosphatase 140 H B-Natriuretic Peptide Total Protein 5.5 L Albumin 3.2 L Triglycerides Amylase Lipase 421 H Vitamin B12 Folate Urine Color Urine Appearance Urine pH Ur Specific [place] Urine Protein Urine Glucose (UA) Urine Ketones Urine Blood Urine Nitrite Ur Leukocyte Esterase Urine RBC Urine WBC Ur Squamous Epith Cells Ur Renal Epithelial Cell Amorphous Sediment Urine Bacteria Granular Casts Urine Sperm COVID-19 (LILI) COVID-19 Clin Com Blood Type Antibody Screen 08/18/20 08/18/20 08/18/20 05:19 07:19 09:37 WBC RBC Hgb Hct MCV MCH MCHC RDW Plt Count MPV Immature Gran % (Auto) Neut % (Auto) Lymph % (Auto) [place] % (Auto) Eos % (Auto) Baso % (Auto) Lymph # (Auto) [place] # (Auto) Eos # (Auto) Baso # (Auto) Abs Immat Gran (auto) Absolute Neuts (auto) Absolute Nucleated RBC Nucleated RBC % (auto) Smear Tech's Comments PT 14.9 H INR 1.3 H Sodium Potassium Chloride Carbon Dioxide Anion Gap BUN Creatinine Estim Creat Clear Calc Estimated GFR POC Glucose 82 Random Glucose Fasting Glucose Lactic Acid Calcium Iron TIBC % Saturation Unsat Iron Binding Ferritin Total Bilirubin Direct Bilirubin AST ALT Alkaline Phosphatase B-Natriuretic Peptide Total Protein Albumin Triglycerides Amylase Lipase Vitamin B12 Folate Urine Color Urine Appearance Urine pH Ur Specific [place] Urine Protein Urine Glucose (UA) Urine Ketones Urine Blood Urine Nitrite Ur Leukocyte Esterase Urine RBC Urine WBC Ur Squamous Epith Cells Ur Renal Epithelial Cell Amorphous Sediment Urine Bacteria Granular Casts Urine Sperm COVID-19 (LILI) COVID-19 [facility] Blood Type A Negative Antibody Screen NEGATIVE 08/18/20 11:05 WBC RBC Hgb Hct MCV MCH MCHC RDW Plt Count MPV Immature Gran % (Auto) Neut % (Auto) Lymph % (Auto) [place] % (Auto) Eos % (Auto) Baso % (Auto) Lymph # (Auto) [place] # (Auto) Eos # (Auto) Baso # (Auto) Abs Immat Gran (auto) Absolute Neuts (auto) Absolute Nucleated RBC Nucleated RBC % (auto) Smear Tech's Comments PT INR Sodium Potassium Chloride Carbon Dioxide Anion Gap BUN Creatinine Estim Creat Clear Calc Estimated GFR POC Glucose 71 Random Glucose Fasting Glucose Lactic Acid Calcium Iron TIBC % Saturation Unsat Iron Binding Ferritin Total Bilirubin Direct Bilirubin AST ALT Alkaline Phosphatase B-Natriuretic Peptide Total Protein Albumin Triglycerides Amylase Lipase Vitamin B12 Folate Urine Color Urine Appearance Urine pH Ur Specific [place] Urine Protein Urine Glucose (UA) Urine Ketones Urine Blood Urine Nitrite Ur Leukocyte Esterase Urine RBC Urine WBC Ur Squamous Epith Cells Ur Renal Epithelial Cell Amorphous Sediment Urine Bacteria Granular Casts Urine Sperm COVID-19 (LILI) COVID-19 Clin Com Blood Type Antibody Screen Airway Mallampati Class: IV TM Dist: >3cm Neck ROM: Full Loose/Missing/Broken Teeth: No Heart: Afib Assessment and Plan Assessment Anesthesia Assessment: Anesthesia Plan Discussed, PAT Visit and Chart Reviewed Final Anesthetic Review NPO: Yes ASA Class: III Final Preanesthetic Review: No Changes in Pt Med Stat, Meds/Allgs Chart Reviewed, Consent Obtained/Reviewed and Anes Risks/Benef Reviewed Patient Risk: Intermediate Procedure Risk: Intermediate Anesthetic Plan Anesthetic Plan: GA Disposition: Standard PACU
[2020-08-18] MEDS: Lactated Ringers 1,000 ML 50 ML IV (12:33)
--- NOTE | 2020-08-18 14:17 | P.PNIM_ITS ---
Subjective Subjective Date of Service: 08/18/20 Interval History: abd pain fu Review of Systems Says no abdominal pain, nausea or vomiting or chest pain or shortness of breath temp reading at 11 am seems error. Denies any fever chills. Physical Exam Vital Signs: Vital Signs: Last Vital Signs Temp 908.7 F H 08/18/20 11:11 Pulse 79 08/18/20 11:11 Resp 18 08/18/20 11:11 BP 188/82 H 08/18/20 11:11 Pulse Ox 95 08/18/20 11:11 Body Mass Index 27.6 Physical exam: Cvs: rrr, [id number] , no murmur res: clear to auscultation ,no rhonchii or wheezing abd: no rebound or guarding ,nt, bs present. ext pulses present , no cyanosis neuro: axo3 , nonfocal. Objective Data Current Medications Generic Name Dose Route Start Last Admin Trade Name Freq PRN Reason Stop Dose Admin Acetaminophen 650 mg 08/14/20 03:41 Acetaminophen 325 Mg Tablet PO Q6H PRN Pain, Mild (Pain Scale 1-3) Al Hydroxide/Mg Hydroxide 30 ml 08/14/20 03:41 08/16/20 17:27 Magnesium Hydrox/Alum Hydrox 30 Ml Oral.Susp PO 30 ml Q4H PRN Administration Heartburn/Nausea Atorvastatin Calcium 80 mg 08/15/20 21:00 08/17/20 20:36 Atorvastatin Calcium 80 Mg Tablet PO 80 mg BEDTIME AMBREEN Administration Ceftriaxone Sodium 1 gm/ 50 mls @ 100 mls/hr 08/14/20 04:00 08/18/20 05:06 Sodium Chloride IV Infused Q24H AMBREEN Infusion Metronidazole 500 mg in 100 mls @ 100 mls/hr 08/14/20 05:00 08/18/20 06:19 Flagyl IV Infused Q8H AMBREEN Infusion Lactated Ringer's 1,000 mls @ 60 mls/hr 08/17/20 17:30 08/18/20 10:55 Lr IVCONT Infused .[id number] AMBREEN Infusion Lactated Ringer's 1,000 mls @ 50 mls/hr 08/18/20 12:30 08/18/20 12:33 Lr IV 50 mls/hr .Q20H AMBREEN Administration Insulin Human Lispro 0 unit 08/14/20 07:30 08/18/20 11:45 Insulin Lispro 100 Unit/Ml 3 Ml Vial SUBCUT Not Given QIDACHS [facility] Protocol Lisinopril 10 mg 08/14/20 09:00 08/18/20 09:05 Lisinopril 10 Mg Tablet PO Not Given DAILY [facility] Protocol Melatonin 6 mg 08/15/20 21:19 08/17/20 21:10 Melatonin 3 Mg Tablet PO 6 mg BEDTIME PRN Administration Insomnia Omeprazole 20 mg 08/17/20 11:00 08/18/20 05:15 Omeprazole 20 Mg Capsule. PO 20 mg BID@0630,1630 [facility] Administration Ondansetron HCl 4 mg 08/14/20 03:41 08/17/20 07:43 Ondansetron Hcl 4 Mg/2 Ml Vial IVPUSH 4 mg Q8H PRN Administration Nausea and Vomiting Rivaroxaban 20 mg 08/14/20 17:00 08/17/20 17:00 Rivaroxaban 20 Mg Tablet PO Not Given DAILY@1700 [facility] Sodium Chloride 3 ml 08/14/20 08:00 08/18/20 09:05 0.9 % Sodium Chloride Flush 3 Ml Syringe IVFLUSH Not Given QSHIFT [facility] Tramadol HCl 25 mg 08/17/20 13:27 08/17/20 21:13 Tramadol Hcl 50 Mg Tablet PO 25 mg Q6H PRN Administration Pain, Mild (Pain Scale 1-3) Labs CBC & Chem 7: 08/18/20 05:19 08/17/20 08:29 Microbiology Microbiology Results: Microbiology 08/13/20 23:39 Blood - Venous Blood Culture - Final Escherichia coli 08/13/20 23:06 Blood - Venous Blood Culture - Preliminary No growth after 48 hours. Assessment and Plan (1) Gallstone pancreatitis: Status: Acute Assessment and Plan: 80-year-old male with past medical history of CAD, COPD, HTN, hyperlipidemia among others who presents to the hospital with nausea, and abdominal pain found to have acute pancreatitis 1.sepsis poa due to gallstone pancreatitis/ cholangitis blood culture with GNR lfts improving, pain improving continue rocephin, flagyl, montior labs-seems improving surgery following-plan for cholecystomy today id eval for gram neg bactermia 2.GARTH:resolved with ivf. 3.AFib - stable, in sinus hold rivaroxaban in anticipation of surgery. 4.diabetes: fs 80-100's asymptomatic hodling metformin insulin avoid coverage below 200 mg /dl DVT prophylaxis: Rivaroxaban
--- NOTE | 2020-08-18 14:27 | W.PM.OPN ---
Operative Note Operative Note Date of Service: 08/18/20 Narrative: Preop diagnosis: Recent gallstone pancreatitis Postop diagnosis: Recent gallstone pancreatitis, acute purulent cholecystitis Procedure: Laparoscopic cholecystectomy Surgeon: Aj Jackson MD medical research assistant: Preston ARTIS student The patient is a 80-year-old male admitted because of an episode of abdominal pain diarrhea. CT scan findings were suggestive of pancreatitis and is appy as was more than 6000. He also had gallstones and the likely etiology of his pancreatitis was from this. He had some thickening of the gallbladder wall as well but when examined, he did not have any significant right upper quadrant tenderness or pain. He was kept on clear liquids and on IV antibiotics until his lipase went down to around 400 this morning. I then discussed with him the option of proceeding with cholecystectomy and he wanted to proceed. He was brought to the operating room and placed supine under general anesthesia via endotracheal tube. The abdomen was prepped and draped in the usual sterile fashion. A surgical time-out was done. The patient received Cefotan 2 g IV preoperatively for prophylaxis. I made a short incision on the skin in the supraumbilical margin and this was carried down through the full-thickness of the skin and subcutaneous fat down to the fascia . The fascia was incised and the peritoneum was entered and through this incision a Jaiden port was introduced. Pneumoperitoneum was introduced to a pressure of 15 mm mercury. We had a laparoscope inserted through this. From here on the rest of the procedures done under vision with the laparoscope which was a 10 mm 0 degree scope. With laparoscopic visualization I inserted at 5/12 port epigastric area below the subcostal margin, and two 5 mm ports were introduced through small incisions in the subcostal margin along the anterior axillary line and the midclavicular line. Graspers were placed through these working ports. The patient was placed in head-up and [id number] position. We reflected the bowel loops away from the right upper quadrant and were able to visualize the gallbladder. The fundus of gallbladder was very thickened and indurated and markedly adherent to the liver edge. I applied the the raptor grasper just below this fundus where the gallbladder wall was much less indurated and we used this to retract the gallbladder cephalad. I was able to apply another grasper to the pouch of the gallbladder. The entire gallbladder wall was very indurated consistent with acute and chronic cholecystitis. There was note of a lot of edema as well. I carefully stripped the thickened peritoneum off of the neck of the gallbladder to expose the cystic duct. At this point the cystic duct was being put on stretch in a cephalad and lateral fashion with the use of the graspers on the gallbladder. I continued to bluntly dissect the cystic duct until I was able to clearly define its confluence with the neck of the gallbladder. There was note of a lot of edema around this area and I could see the cystic artery running posteriorly to this. I examined the rest of the hilum in this triangle and there was no other tubular structure. I continue to define the cystic duct with the [place] dissector. Eventually, as able to clearly see it is confluence with the neck of the gallbladder. I had achieved a critical view of the hepatocystic triangle as well. Clips were applied at the cystic duct with 2 clips being applied distally. The cystic duct was transected between clips with Endo scissors. With traction on the gallbladder wall away from the liver bed I proceeded to carefully dissect the rest of the hilum. Again this was also indurated from what appeared to be acute on chronic inflammation. I carefully dissected the rest of the hilum until I was able to see what appeared to be the cystic artery. I applied clips on this and this was transected between clips also with Endo scissors. I proceeded to continue to apply traction on the gallbladder wall away from the liver bed. We had difficulty with keeping the the graspers in place be of the induration gallbladder wall. I proceeded to carefully divide across the hilum in a mm by mm fashion to make sure that there were no other structures or vessels. Eventually I was able to reach what appeared to be the interface of the gallbladder wall and the liver bed. I used the electrocautery spatula to carefully divide the thickened attachments of the wall of the gallbladder wall to the liver. Eventually I had to switch to a hook electrocautery because of the thickened wall and poor planes. Furthermore the entire gallbladder appeared to be very indurated and was difficult to clearly identify the planes. We had to therefore proceed slowly. Eventually I was able to clearly separate the gallbladder from the liver and reach the fundus. During the dissection there were tears on the gallbladder wall from retraction because of the induration. There was note of pus that was seen from the gallbladder itself side consistent with purulent cholecystitis. The gallbladder appeared to be filled with purulent fluid. I continued to dissect slowly across the interface of the gallbladder with liver bed. The fundus appeared to be very indurated as well and there was more pus as we dissected through the fundus and entered the poor planes. Eventually with the use of careful dissection with the hope electrocautery, I was able to completely separate the gallbladder wall from the liver bed. This was retrieved through an endobag through the umbilicall incision. I reinserted all ports and insufflated Copiuos irrigation was done around the area of dissection. About 2 L of irrigant fluid was used because of the presence of pus earlier. I observed for hemostasis. There was note of good hemostasis on liver bed as well as in the area of dissection. The clips appeared to be intact. I observed all 4 quadrants and there was no other pathology seen I continue to observe the area of dissection. Once hemostasis was ensured I desufflated through the port sites. I removed all ports under vision and there was no bleeding from the port sites. I removed the umbilical port last. The fascia of the umbilical incision was closed with a [id number] Dexon 0 stitch. Skin closure was achieved on all incisions using Dexon 4-0 subcuticular sutures. Steri-Strips and dressings were applied All incisions were infiltrated with Marcaine 0.5% for postop analgesia. The procedures was then completed. The patient tolerated the procedure well. There were no complications noted. Initial and final counts sponges and instruments were correct. Estimated blood loss was about 50 cc. Patient was extubated without difficulty and transferred to the recovery room with stable vital signs.
[2020-08-18 14:33] LABS: Glucose, Whole Blood 86 mg/dL (60-115)
--- NOTE | 2020-08-18 14:37 | PM.OP ---
Brief Operative Note Date of Service: 08/18/20 Pre-op diagnosis: Gallstone pancreatitis Post-op diagnosis: other (Gallstone pancreatitis, acute purulent cholecystitis) Procedure: Laparoscopic cholecystectomy Surgeon: Aj Jackson MD Anesthesia: GETA Was an Ground Operations Supervisor used for this Procedure?: No Estimated blood loss (mL): 50 Pathology: other (Gallbladder) Condition: stable Disposition: PACU
[2020-08-18] MEDS: Lactated Ringers 1,000 ML 60 ML IVCONT (15:36)
[2020-08-18 16:13] LABS: Glucose, Whole Blood 84 mg/dL (60-115)
--- NOTE | 2020-08-18 16:36 | PM.EVENT ---
Event Note Date of Service: 08/18/20 Event Note: Seen postop Seems to have good pain control Stable vital sign Dressings dry Pain management Continue IV antibiotics Clear liquids, advance as tolerated Dorothy mccormick
[2020-08-18] MEDS: Rivaroxaban 20 MG TABLET PO (17:43)
[2020-08-18 19:51] LABS: Glucose, Whole Blood 127 mg/dL (60-115)
[2020-08-18] MEDS: Atorvastatin Calcium 80 MG TABLET PO (21:31)
[2020-08-18] MEDS: Melatonin 3 MG TABLET 6 MG PO (21:44)
--- NOTE | 2020-08-18 22:12 | W.PM.IDCN ---
History of Present Illness Data of Consult Service Date: 08/18/20 Requesting physician: Tangela Irizarry Primary Care Provider: Jordan Gabriel MD HPI Reason for consult: bacteremia,cholycystitis He presents to hospital with nausea and right lower quadrant pain,7/10 to back. He has some nausea and vomiting No one else is ill MRCP shows cholycystitis He has E coli bacteremia. [facility] Past Medical History Medical History CAD (coronary artery disease) COPD (chronic obstructive pulmonary disease) Diabetes mellitus GERD (gastroesophageal reflux disease) History of cancer HTN (hypertension) Hyperlipidemia Paroxysmal atrial fibrillation PVD (peripheral vascular disease) Family History Family history: reviewed and not pertinent Surgical History Surgical History H/O heart surgery History of arthroplasty of left hip History of lobectomy of lung Social History Social History Household Members: Spouse Housing: House Do you presently have visiting nurse or other home services: No Alcohol intake: never Patient Tobacco Use Status: Former Tobacco user service: No Meds Allergies Allergy/AdvReac Type Severity Reaction Status Date / Time No Known Allergies Allergy Verified 02/17/20 10:42 Active Medications: Current Medications Generic Name Dose Route Start Last Admin Trade Name Freq PRN Reason Stop Dose Admin Acetaminophen 650 mg 08/14/20 03:41 Acetaminophen 325 Mg Tablet PO Q6H PRN Pain, Mild (Pain Scale 1-3) Al Hydroxide/Mg Hydroxide 30 ml 08/14/20 03:41 08/16/20 17:27 Magnesium Hydrox/Alum Hydrox 30 Ml Oral.Susp PO 30 ml Q4H PRN Administration Heartburn/Nausea Atorvastatin Calcium 80 mg 08/15/20 21:00 08/18/20 21:31 Atorvastatin Calcium 80 Mg Tablet PO 80 mg BEDTIME AMBREEN Administration Ceftriaxone Sodium 1 gm/ 50 mls @ 100 mls/hr 08/14/20 04:00 08/18/20 05:06 Sodium Chloride IV Infused Q24H AMBREEN Infusion Lactated Ringer's 1,000 mls @ 60 mls/hr 08/17/20 17:30 08/18/20 15:36 Lr IVCONT 60 mls/hr .[id number] AMBREEN Administration Lactated Ringer's 1,000 mls @ 50 mls/hr 08/18/20 12:30 08/18/20 15:36 Lr IV Infused .Q20H AMBREEN Infusion Metronidazole 500 mg in 100 mls @ 100 mls/hr 08/18/20 15:30 08/18/20 16:58 Flagyl IV Infused Q8H AMBREEN Infusion Insulin Human Lispro 0 unit 08/14/20 07:30 08/18/20 21:54 Insulin Lispro 100 Unit/Ml 3 Ml Vial SUBCUT Not Given QIDACHS [facility] Protocol Lisinopril 10 mg 08/14/20 09:00 08/18/20 09:05 Lisinopril 10 Mg Tablet PO Not Given DAILY [facility] Protocol Melatonin 6 mg 08/15/20 21:19 08/18/20 21:44 Melatonin 3 Mg Tablet PO 3 mg BEDTIME PRN Administration Insomnia Morphine Sulfate 2 mg 08/18/20 15:33 Morphine Sulfate 2 Mg/Ml Cartridge IVPUSH Q3H PRN Pain, Severe (Pain Scale 7-10) Omeprazole 20 mg 08/17/20 11:00 08/18/20 17:43 Omeprazole 20 Mg Capsule.Dr PO 20 mg BID@0630,1630 [facility] Administration Ondansetron HCl 4 mg 08/14/20 03:41 08/17/20 07:43 Ondansetron Hcl 4 Mg/2 Ml Vial IVPUSH 4 mg Q8H PRN Administration Nausea and Vomiting Rivaroxaban 20 mg 08/14/20 17:00 08/18/20 17:43 Rivaroxaban 20 Mg Tablet PO 20 mg DAILY@1700 [facility] Administration Sodium Chloride 3 ml 08/14/20 08:00 08/18/20 16:58 0.9 % Sodium Chloride Flush 3 Ml Syringe IVFLUSH Not Given QSHIFT [facility] Tramadol HCl 25 mg 08/17/20 13:27 08/17/20 21:13 Tramadol Hcl 50 Mg Tablet PO 25 mg Q6H PRN Administration Pain, Mild (Pain Scale 1-3) Home Medications Medication Instructions Recorded Confirmed Last Taken Type atorvastatin 1 tab PO DAILY 08/14/20 08/14/20 Unknown History lisinopril 1 tab PO DAILY 08/14/20 08/14/20 Unknown History metformin 1 tab PO BID 08/14/20 08/14/20 Unknown History rivaroxaban [Xarelto] 1 tab PO QPM 08/14/20 08/14/20 Unknown History Physical Exam Vital Signs: Vital Signs: Last Vital Signs Temp 98.9 F 08/18/20 19:23 Pulse 82 08/18/20 19:23 Resp 20 08/18/20 19:23 BP 180/68 H 08/18/20 19:23 Pulse Ox 92 08/18/20 19:23 Body Mass Index 27.6 Const: General: cooperative Orientation/consciousness: patient oriented x3 HENMT: Head: Yes normal to inspection Mouth: Normal oral and palatal mucosa present Eyes: General: appearance normal, both eyes and all related structures Resp: Effort & Inspection: normal respiratory effort Cardio: Rate: regular rate Rhythm: regular rhythm GI: Palpation (GI): Soft to palpation and nontender Skin: General skin exam: no rashes or lesions noted Neuro: General: patient oriented x3 Extrem: General: Yes normal to inspection Results Labs CBC & Chem 7: 08/18/20 05:19 08/17/20 08:29 Labs: Short CBC 08/18/20 Range/Units 05:19 WBC 12.2 H (4.8-10.8) X10*3/uL Hgb 9.1 L (14.0-18.0) g/dl Hct 28.3 L (42-52) % Plt Count 319 (160-400) X10*3/uL Liver Function 08/18/20 Range/Units 05:19 Total Bilirubin 0.6 (0.0-1.0) mg/dL Direct Bilirubin 0.4 (0.0-0.5) mg/dL AST 34 (5-37) U/L ALT 108 H (0-40) U/L Alkaline Phosphatase 140 H (39-117) U/L Albumin 3.2 L (3.5-5.0) g/dL Microbiology Microbiology Results: Microbiology 08/13/20 23:39 Blood - Venous Blood Culture - Final Escherichia coli 08/13/20 23:06 Blood - Venous Blood Culture - Preliminary No growth after 48 hours. Assessment and Plan (1) Gallstone pancreatitis: Status: Acute E coli bacteremia due to cholecystitis He has no this as source of pancreatitis E coli is sensitive to Ceftriaxone Would continue Ceftriaxone and Flagyl Surgical followup Would give two weeks antibiotics,can change to po when improved (2) Sepsis: Status: Acute
[2020-08-19] VITALS (8 sets, daily range): BP systolic 142–160; BP diastolic 50–70; PULSE 65–94; RESP 18–20; TEMP 36.6–37.9; O2SAT 91–96
[2020-08-19] MEDS: metroNIDAZOLE/NS 500 MG/100 ML PIGGYBACK 100 MG IV ×4 (00:17→22:59)
[2020-08-19] MEDS: cefTRIAXone sodium 1 GM in 0.9 % Sodium Chloride 50 ML IV (03:43)
[2020-08-19 06:14] LABS: Hematocrit 29.8 % (42-52); Hemoglobin 9.9 g/dl (14.0-18.0); Mean Corpuscular HGB Conc 33.2 g/dl (31.0-36.0); Mean Corpuscular Hemoglobin 27.7 pg (27.0-33.0); Mean Corpuscular Volume 83.5 fL (80-98); Mean Platelet Volume 9.6 fL (9.4-12.4); Platelet Count 352 X10*3/uL (160-400); Red Blood Count 3.57 X10*6/uL (4.60-5.80); Red Cell Distribution Width 14.6 % (11.0-16.0); White Blood Count 15.3 X10*3/uL (4.8-10.8)
[2020-08-19] MEDS: Omeprazole 20 MG CAPSULE.DR PO ×2 (06:55→16:01)
[2020-08-19 07:11] LABS: Anion Gap 17 (12-20); Blood Urea Nitrogen 15 mg/dL (9-16); Calcium 8.1 mg/dL (8.4-10.2); Carbon Dioxide 22 mmol/L (22-29); Chloride 102 mmol/L (96-108); Creatinine Clr Calc Pharmacy 73.9; Estimated Glomerular Filt Rate > 60; Glucose Random 119 mg/dL (60-115); Potassium 3.8 mmol/L (3.3-5.1); Sodium 137 mmol/L (135-145)
[2020-08-19 07:26] LABS: Glucose, Whole Blood 105 mg/dL (60-115)
[2020-08-19] MEDS: lisinopriL 10 MG TABLET PO (08:49)
[2020-08-19] MEDS: 0.9 % Sodium Chloride Flush 3 ML SYRINGE IVFLUSH (08:51)
--- NOTE | 2020-08-19 10:22 | HO.POSTANES ---
Post Anesthesia Evaluation Post Anesthesia Evaluation Vital Signs: Vital Signs Temp Pulse Resp BP Pulse Ox 08/19/20 08:49 84 160/60 H 08/19/20 08:00 99.0 F 84 20 160/60 H 93 08/19/20 03:35 98.0 F 68 18 160/70 H 96 08/19/20 00:00 97.9 F 75 18 142/62 H 93 Anesthesia: General Endotracheal-GETA Mental Status: Awake Pain Control: Satisfactory Nausea/Vomiting: None Hydration: Adequate Anesthesia-Related Issues: No Anes. Related Issues
--- NOTE | 2020-08-19 10:29 | P.PNGS_ITS ---
Subjective Subjective Date of Service: 08/19/20 Interval history: Feels well today Says he had a good night Passing flatus Asking for food Physical Exam Vital Signs: Vital Signs: Last Vital Signs Temp 99.0 F 08/19/20 08:00 Pulse 84 08/19/20 08:49 Resp 20 08/19/20 08:00 BP 160/60 H 08/19/20 08:49 Pulse Ox 93 08/19/20 08:00 Body Mass Index 27.6 Laboratory Results - last 24 hr 08/18/20 08/18/20 08/18/20 09:37 11:05 14:30 WBC RBC Hgb Hct MCV MCH MCHC RDW Plt Count MPV Absolute Nucleated RBC Nucleated RBC % (a uto) Sodium Potassium Chloride Carbon Dioxide Anion Gap BUN Creatinine Estim Creat Clear Calc Estimated GFR POC Glucose 71 86 Random Glucose Calcium Blood Type A Negative Antibody Screen NEGATIVE 08/18/20 08/18/20 08/19/20 16:10 19:47 05:02 WBC 15.3 H RBC 3.57 L Hgb 9.9 L Hct 29.8 L MCV 83.5 MCH 27.7 MCHC 33.2 RDW 14.6 Plt Count 352 MPV 9.6 Absolute Nucleated RBC 0.000 Nucleated RBC % (a uto) 0.0 Sodium Potassium Chloride Carbon Dioxide Anion Gap BUN Creatinine Estim Creat Clear Calc Estimated GFR POC Glucose 84 127 H Random Glucose Calcium Blood Type Antibody Screen 08/19/20 08/19/20 05:02 07:20 WBC RBC Hgb Hct MCV MCH MCHC RDW Plt Count MPV Absolute Nucleated RBC Nucleated RBC % (a uto) Sodium 137 Potassium 3.8 Chloride 102 Carbon Dioxide 22 Anion Gap 17 BUN 15 Creatinine 0.93 Estim Creat Clear Calc 73.9 Estimated GFR > 60 POC Glucose 105 Random Glucose 119 H Calcium 8.1 L D Blood Type Antibody Screen Const: General: comfortable and no acute distress Eyes: Sclerae: sclerae normal Resp: Effort & Inspection: normal respiratory effort Cardio: Rhythm: regular rhythm GI: Other: Incisions clean and dry Inspection: No distended Palpation (GI): Soft to palpation, not firm and no guarding Progress Note: A&P Assessment and plan (1) Gallstone pancreatitis: Status: Acute Assessment and Plan: Status post laparoscopic cholecystectomy Doing well postop There was large pus with in the gallbladder With keep on IV antibiotics for at least another 24 hours Diet as tolerated today Okay to restart Xarelto tonight Leukocytosis likely reactive Clinically doing well Fall Risk Details Current Medications: Current Medications Generic Name Dose Route Start Last Admin Trade Name Beverley PRN Reason Stop Dose Admin Acetaminophen 650 mg 08/14/20 03:41 Acetaminophen 325 Mg Tablet PO Q6H PRN Pain, Mild (Pain Scale 1-3) Al Hydroxide/Mg Hydroxide 30 ml 08/14/20 03:41 08/16/20 17:27 Magnesium Hydrox/Alum Hydrox 30 Ml Oral.Susp PO 30 ml Q4H PRN Administration Heartburn/Nausea Atorvastatin Calcium 80 mg 08/15/20 21:00 08/18/20 21:31 Atorvastatin Calcium 80 Mg Tablet PO 80 mg BEDTIME AMBREEN Administration Ceftriaxone Sodium 1 gm/ 50 mls @ 100 mls/hr 08/14/20 04:00 08/19/20 04:15 Sodium Chloride IV Infused Q24H AMBREEN Infusion Lactated Ringer's 1,000 mls @ 60 mls/hr 08/17/20 17:30 08/19/20 08:54 Lr IVCONT Infused .[id number] AMBREEN Infusion Lactated Ringer's 1,000 mls @ 50 mls/hr 08/18/20 12:30 08/19/20 08:48 Lr IV Not Given .Q20H AMBREEN Metronidazole 500 mg in 100 mls @ 100 mls/hr 08/18/20 15:30 08/19/20 08:48 Flagyl IV Infused Q8H AMBREEN Infusion Insulin Human Lispro 0 unit 08/14/20 07:30 08/19/20 07:59 Insulin Lispro 100 Unit/Ml 3 Ml Vial SUBCUT Not Given QIDACHS [facility] Protocol Lisinopril 10 mg 08/14/20 09:00 08/19/20 08:49 Lisinopril 10 Mg Tablet PO 10 mg DAILY AMBREEN Administration Protocol Melatonin 6 mg 08/15/20 21:19 08/18/20 21:44 Melatonin 3 Mg Tablet PO 3 mg BEDTIME PRN Administration Insomnia Morphine Sulfate 2 mg 08/18/20 15:33 Morphine Sulfate 2 Mg/Ml Cartridge IVPUSH Q3H PRN Pain, Severe (Pain Scale 7-10) Omeprazole 20 mg 08/17/20 11:00 08/19/20 06:55 Omeprazole 20 Mg Capsule. PO 20 mg BID@0630,1630 AMBREEN Administration Ondansetron HCl 4 mg 08/14/20 03:41 08/17/20 07:43 Ondansetron Hcl 4 Mg/2 Ml Vial IVPUSH 4 mg Q8H PRN Administration Nausea and Vomiting Rivaroxaban 20 mg 08/14/20 17:00 08/18/20 17:43 Rivaroxaban 20 Mg Tablet PO 20 mg DAILY@1700 AMBRE[facility] Administration Sodium Chloride 3 ml 08/14/20 08:00 08/19/20 08:51 0.9 % Sodium Chloride Flush 3 Ml Syringe IVFLUSH 3 ml QSHIFT [facility] Administration Tramadol HCl 25 mg 08/17/20 13:27 08/17/20 21:13 Tramadol Hcl 50 Mg Tablet PO 25 mg Q6H PRN Administration Pain, Mild (Pain Scale 1-3) Time Spent With Patient Time: Total time spent is greater than 50% in coordination of care (as documented) at patient's floor/unit and/or counseling patient: Time with patient: 15 - 24 minutes Procedures Date of Service Date of Service: 08/19/20
[2020-08-19 11:03] LABS: Glucose, Whole Blood 109 mg/dL (60-115)
[2020-08-19] MEDS: Lactated Ringers 1,000 ML 60 ML IVCONT (12:11)
--- NOTE | 2020-08-19 13:03 | HO.PM.IMPN ---
Subjective Subjective Date of Service: 09/08/20 Physical Exam Vital Signs: Vital Signs: Last Vital Signs Temp 98.0 F 08/19/20 11:14 Pulse 85 08/19/20 11:14 Resp 20 08/19/20 11:14 BP 150/70 H 08/19/20 11:14 Pulse Ox 94 08/19/20 11:14 Body Mass Index 27.6 Cvs: rrr, [id number] , no murmur res: clear to auscultation ,no rhonchii or wheezing abd: no rebound or guarding ,nt, bs present. ext pulses present , no cyanosis neuro: axo3 , nonfocal. Objective Data Current Medications Generic Name Dose Route Start Last Admin Trade Name Freq PRN Reason Stop Dose Admin Acetaminophen 650 mg 08/14/20 03:41 Acetaminophen 325 Mg Tablet PO Q6H PRN Pain, Mild (Pain Scale 1-3) Al Hydroxide/Mg Hydroxide 30 ml 08/14/20 03:41 08/16/20 17:27 Magnesium Hydrox/Alum Hydrox 30 Ml Oral.Susp PO 30 ml Q4H PRN Administration Heartburn/Nausea Atorvastatin Calcium 80 mg 08/15/20 21:00 08/18/20 21:31 Atorvastatin Calcium 80 Mg Tablet PO 80 mg BEDTIME AMBREEN Administration Ceftriaxone Sodium 1 gm/ 50 mls @ 100 mls/hr 08/14/20 04:00 08/19/20 04:15 Sodium Chloride IV Infused Q24H AMBREEN Infusion Lactated Ringer's 1,000 mls @ 50 mls/hr 08/18/20 12:30 08/19/20 08:48 Lr IV Not Given .Q20H AMBREEN Metronidazole 500 mg in 100 mls @ 100 mls/hr 08/18/20 15:30 08/19/20 08:48 Flagyl IV Infused Q8H AMBREEN Infusion Insulin Human Lispro 0 unit 08/14/20 07:30 08/19/20 11:16 Insulin Lispro 100 Unit/Ml 3 Ml Vial SUBCUT Not Given QIDACHS [facility]ENDING [facility] TO [facility] Protocol Lisinopril 10 mg 08/14/20 09:00 08/19/20 08:49 Lisinopril 10 Mg Tablet PO 10 mg DAILY AMBREEN Administration Protocol Melatonin 6 mg 08/15/20 21:19 08/18/20 21:44 Melatonin 3 Mg Tablet PO 3 mg BEDTIME PRN Administration Insomnia Morphine Sulfate 2 mg 08/18/20 15:33 Morphine Sulfate 2 Mg/Ml Cartridge IVPUSH Q3H PRN Pain, Severe (Pain Scale 7-10) Omeprazole 20 mg 08/17/20 11:00 08/19/20 06:55 Omeprazole 20 Mg Capsule. PO 20 mg BID@0630,1630 AMBREEN Administration Ondansetron HCl 4 mg 08/14/20 03:41 08/17/20 07:43 Ondansetron Hcl 4 Mg/2 Ml Vial IVPUSH 4 mg Q8H PRN Administration Nausea and Vomiting Sodium Chloride 3 ml 08/14/20 08:00 08/19/20 08:51 0.9 % Sodium Chloride Flush 3 Ml Syringe IVFLUSH 3 ml QSHIFT AMBREEN Administration Tramadol HCl 25 mg 08/17/20 13:27 08/17/20 21:13 Tramadol Hcl 50 Mg Tablet PO 25 mg Q6H PRN Administration Pain, Mild (Pain Scale 1-3) Labs CBC & Chem 7: 08/20/20 07:02 08/20/20 07:02 Microbiology Microbiology Results: Microbiology 08/13/20 23:06 Blood - Venous Blood Culture - Final No growth after 5 days. 08/13/20 23:39 Blood - Venous Blood Culture - Final Escherichia coli Assessment and Plan (1) Gallstone pancreatitis: Status: Acute Assessment and Plan: 80-year-old male with past medical history of CAD, COPD, HTN, hyperlipidemia among others who presents to the hospital with nausea, and abdominal pain found to have acute pancreatitis 1.sepsis poa due to gallstone pancreatitis/ cholangitis blood culture with e coli pansenstive lfts improving, pain improving surgery following-s/p cholecystectomy day1 continue rocephin, flagyl, montior lft's , cbc , bmp,lipase-seems improving Id following 2.GARTH:resolved with ivf. 3.AFib - stable, in sinus hold rivaroxaban today -s/p surgery. 4.diabetes: fs 80-100's asymptomatic hodling metformin insulin avoid coverage below 200 mg /dl DVT prophylaxis: scd
[2020-08-19] MEDS: Acetaminophen 325 MG TABLET 650 MG PO (15:59)
[2020-08-19 16:48] LABS: Glucose, Whole Blood 208 mg/dL (60-115)
[2020-08-19] MEDS: Insulin Lispro 100 UNIT/ML 3 ML VIAL SUBCUT (17:14)
[2020-08-19 20:00] LABS: Glucose, Whole Blood 154 mg/dL (60-115)
[2020-08-19] MEDS: Atorvastatin Calcium 80 MG TABLET PO (20:16)
[2020-08-19] MEDS: Melatonin 3 MG TABLET 6 MG PO (21:21)
[2020-08-20] VITALS: BP 157/64; PULSE 76; RESP 18; TEMP 36.9; O2SAT 94
[2020-08-20 03:49] VITALS: BP 166/69; PULSE 80; RESP 18; TEMP 36.9; O2SAT 93
[2020-08-20] MEDS: cefTRIAXone sodium 1 GM in 0.9 % Sodium Chloride 50 ML IV (04:53)
[2020-08-20] MEDS: Omeprazole 20 MG CAPSULE.DR PO (05:33)
[2020-08-20 07:16] LABS: Glucose, Whole Blood 121 mg/dL (60-115)
[2020-08-20 07:23] LABS: Hematocrit 27.6 % (42-52); Hemoglobin 8.9 g/dl (14.0-18.0); Mean Corpuscular HGB Conc 32.2 g/dl (31.0-36.0); Mean Corpuscular Hemoglobin 27.1 pg (27.0-33.0); Mean Corpuscular Volume 83.9 fL (80-98); Platelet Count 357 X10*3/uL (160-400); Red Blood Count 3.29 X10*6/uL (4.60-5.80); Red Cell Distribution Width 14.7 % (11.0-16.0); White Blood Count 14.8 X10*3/uL (4.8-10.8)
[2020-08-20 07:51] LABS: Alanine Aminotransferase 65 U/L (0-40); Albumin Level 2.9 g/dL (3.5-5.0); Alkaline Phosphatase 109 U/L (39-117); Anion Gap 13 (12-20); Aspartate Amino Transferase 28 U/L (5-37); Bilirubin Direct 0.3 mg/dL (0.0-0.5); Bilirubin Total 0.4 mg/dL (0.0-1.0); Blood Urea Nitrogen 18 mg/dL (9-16); Carbon Dioxide 23 mmol/L (22-29); Chloride 104 mmol/L (96-108); Creatinine Clr Calc Pharmacy 81.9; Estimated Glomerular Filt Rate > 60; Glucose Random 124 mg/dL (60-115); Potassium 3.4 mmol/L (3.3-5.1); Sodium 137 mmol/L (135-145); Total Protein 5.1 g/dL (6.5-8.0)
[2020-08-20 08:00] VITALS: BP 130/60; PULSE 86; RESP 20; TEMP 36.8; O2SAT 94
[2020-08-20 08:10] LABS: Lipase 173 U/L (8-78)
[2020-08-20] MEDS: metroNIDAZOLE/NS 500 MG/100 ML PIGGYBACK 100 MG IV (08:31)
[2020-08-20] MEDS: lisinopriL 10 MG TABLET PO (08:36)
--- NOTE | 2020-08-20 10:14 | PM.PNGS ---
Subjective Subjective Date of Service: 08/20/20 Interval history: Says he is ready to go home Feels well Good GI function No GI complaints Physical Exam Vital Signs: Vital Signs: Last Vital Signs Temp 98.3 F 08/20/20 08:00 Pulse 86 08/20/20 08:00 Resp 20 08/20/20 08:00 BP 130/60 08/20/20 08:00 Pulse Ox 94 08/20/20 08:00 Body Mass Index 27.6 Laboratory Results - last 24 hr 08/19/20 08/19/20 08/19/20 10:59 15:58 19:51 WBC RBC Hgb Hct MCV MCH MCHC RDW Plt Count MPV Absolute Nucleated RBC Nucleated RBC % (a uto) Sodium Potassium Chloride Carbon Dioxide Anion Gap BUN Creatinine Estim Creat Clear Calc Estimated GFR POC Glucose 109 208 H 154 H Random Glucose Calcium Total Bilirubin Direct Bilirubin AST ALT Alkaline Phosphata se Total Protein Albumin Lipase 08/20/20 08/20/20 08/20/20 07:02 07:02 07:11 WBC 14.8 H RBC 3.29 L Hgb 8.9 L Hct 27.6 L MCV 83.9 MCH 27.1 MCHC 32.2 RDW 14.7 Plt Count 357 MPV 9.0 L Absolute Nucleated RBC 0.000 Nucleated RBC % (a uto) 0.0 Sodium 137 Potassium 3.4 Chloride 104 Carbon Dioxide 23 Anion Gap 13 BUN 18 H Creatinine 0.84 Estim Creat Clear Calc 81.9 Estimated GFR > 60 POC Glucose 121 H Random Glucose 124 H Calcium 8.0 L Total Bilirubin 0.4 Direct Bilirubin 0.3 AST 28 ALT 65 H Alkaline Phosphata se 109 D Total Protein 5.1 L Albumin 2.9 L Lipase 173 H Const: General: comfortable and no acute distress Eyes: Sclerae: sclerae normal Resp: Effort & Inspection: normal respiratory effort Cardio: Rhythm: regular rhythm GI: Other: Soft, no guarding or rebound, all incisions healing well Progress Note: A&P Assessment and plan (1) Gallstone pancreatitis: Status: Acute Assessment and Plan: Status post lap robyn Doing very well Good GI function No fever Okay to DC home on p.o. antibiotics - He had pus in the gallbladder and bacteremia Discussed with patient and his Follow-up in the office Plans reviewed with hospitalist Fall Risk Details Current Medications: Current Medications Generic Name Dose Route Start Last Admin Trade Name Freq PRN Reason Stop Dose Admin Acetaminophen 650 mg 08/14/20 03:41 08/19/20 15:59 Acetaminophen 325 Mg Tablet PO 650 mg Q6H PRN Administration Pain, Mild (Pain Scale 1-3) Al Hydroxide/Mg Hydroxide 30 ml 08/14/20 03:41 08/16/20 17:27 Magnesium Hydrox/Alum Hydrox 30 Ml Oral.Susp PO 30 ml Q4H PRN Administration Heartburn/Nausea Atorvastatin Calcium 80 mg 08/15/20 21:00 08/19/20 20:16 Atorvastatin Calcium 80 Mg Tablet PO 80 mg BEDTIME AMBREEN Administration Ceftriaxone Sodium 1 gm/ 50 mls @ 100 mls/hr 08/14/20 04:00 08/20/20 05:36 Sodium Chloride IV Infused Q24H AMBREEN Infusion Lactated Ringer's 1,000 mls @ 50 mls/hr 08/18/20 12:30 08/20/20 05:33 Lr IV Not Given .Q20H AMBREEN Metronidazole 500 mg in 100 mls @ 100 mls/hr 08/18/20 15:30 08/20/20 09:32 Flagyl IV Infused Q8H AMBREEN Infusion Insulin Human Lispro 0 unit 08/14/20 07:30 08/20/20 07:26 Insulin Lispro 100 Unit/Ml 3 Ml Vial SUBCUT Not Given QIDACHS [facility] Protocol Lisinopril 10 mg 08/14/20 09:00 08/20/20 08:36 Lisinopril 10 Mg Tablet PO 10 mg DAILY AMBREEN Administration Protocol Melatonin 6 mg 08/15/20 21:19 08/19/20 21:21 Melatonin 3 Mg Tablet PO 3 mg BEDTIME PRN Administration Insomnia Morphine Sulfate 2 mg 08/18/20 15:33 Morphine Sulfate 2 Mg/Ml Cartridge IVPUSH Q3H PRN Pain, Severe (Pain Scale 7-10) Omeprazole 20 mg 08/17/20 11:00 08/20/20 05:33 Omeprazole 20 Mg Capsule.Dr PO 20 mg BID@0630,1630 AMBREEN Administration Ondansetron HCl 4 mg 08/14/20 03:41 08/17/20 07:43 Ondansetron Hcl 4 Mg/2 Ml Vial IVPUSH 4 mg Q8H PRN Administration Nausea and Vomiting Rivaroxaban 20 mg 08/20/20 18:00 Rivaroxaban 20 Mg Tablet PO DAILY@1800 [facility] Sodium Chloride 3 ml 08/14/20 08:00 08/20/20 08:37 0.9 % Sodium Chloride Flush 3 Ml Syringe IVFLUSH Not Given QSHIFT [facility] Tramadol HCl 25 mg 08/17/20 13:27 08/17/20 21:13 Tramadol Hcl 50 Mg Tablet PO 25 mg Q6H PRN Administration Pain, Mild (Pain Scale 1-3) Time Spent With Patient Time: Total time spent is greater than 50% in coordination of care (as documented) at patient's floor/unit and/or counseling patient: Time with patient: 15 - 24 minutes Procedures Date of Service Date of Service: 08/20/20
--- NOTE | 2020-08-20 11:06 | PM.DS ---
DS: Providers Provider Date of Service: 08/20/20 Date of admission: 08/14/20 03:17 Primary care physician: Jordan Gabriel MD Consults: 08/14/20 03:41 Consult to General Surgery Routine Consulting Provider: Hyun Mello Reason for consultation: concern for cholecystitis Has provider been notified: No 08/14/20 06:21 Consult to General Surgery Routine Consulting Provider: Hyun Mello Reason for consultation: acute gallstone pancreatitis Has provider been notified: No 08/16/20 14:21 Consult to Infectious Diseases Routine Consulting Provider: Luz Mckeon Reason for consultation: cholecystitis Has provider been notified: No DS: Diagnosis Discharge Diagnosis (1) Gallstone pancreatitis: Status: Acute (2) Sepsis: Status: Deleted (3) GARTH (acute kidney injury): Status: Acute (4) Severe sepsis: Status: Acute (5) Paroxysmal atrial fibrillation: Status: Acute Problem details: xarelto (6) CAD (coronary artery disease): Status: Acute (7) Diabetes mellitus: Status: Acute Problem details: NIDDM (8) Bacteremia: Status: Acute DS: Medications Discharge Medications Home Medications: Home Medications Medication Instructions Recorded Confirmed Xarelto 1 tab PO QPM 08/14/20 08/14/20 atorvastatin 1 tab PO DAILY 08/14/20 08/14/20 lisinopril 1 tab PO DAILY 08/14/20 08/14/20 metformin 1 tab PO BID 08/14/20 08/14/20 Previous Rx's Medication Instructions Recorded amoxicillin-pot clavulanate 1 tab PO Q12H #16 tab 08/20/20 [Augmentin] DS: Summary Hospital Course Hospital Course: Patient was admitted for severe sepsis secondary to acute cholecystitis/cholangitis complicated by gallstone pancreatitis and acute kidney injury. He was treated with ceftriaxone, Flagyl, IV fluids. His acute kidney injury resolved. His blood culture grew pansensitive E coli. His abdominal pain resolved and he was able to tolerate solid diet. He was evaluated by General surgery who performed cholecystectomy on 08/18/2020 which revealed a lot of pus in the gallbladder. Patient is now feeling much better and will be discharged home on a more days of oral Augmentin. He will follow up with General surgery. Time Spent with Patient Time attestation: Total time spent providing and/or coordinating discharge services: Discharge coordination time: Greater than 30 minutes Quality: Stroke Does the patient have a stroke diagnosis?: No Physical Exam Vital Signs: Vital Signs: Last Vital Signs Temp 98.3 F 08/20/20 08:00 Pulse 86 08/20/20 08:00 Resp 20 08/20/20 08:00 BP 130/60 08/20/20 08:00 Pulse Ox 94 08/20/20 08:00 Body Mass Index 27.6 General: AO X 3, no acute distress Resp: CTA bilateral CVS: S1,S2,RRR GI: soft, non tender, non distended Neuro: motor grossly intact Psych: appropriate affect DS: Data Data Completed and Pending Pending studies at discharge: Pending at discharge 08/18/20 13:53 Surgical [PTH] Routine Labs on day of discharge: Laboratory Results - last 24 hr 08/19/20 08/19/20 08/20/20 15:58 19:51 07:02 WBC RBC Hgb Hct MCV MCH MCHC RDW Plt Count MPV Absolute Nucleated RBC Nucleated RBC % (auto) Sodium 137 Potassium 3.4 Chloride 104 Carbon Dioxide 23 Anion Gap 13 BUN 18 H Creatinine 0.84 Estim Creat Clear Calc 81.9 Estimated GFR > 60 POC Glucose 208 H 154 H Random Glucose 124 H Calcium 8.0 L Total Bilirubin 0.4 Direct Bilirubin 0.3 AST 28 ALT 65 H Alkaline Phosphatase 109 D Total Protein 5.1 L Albumin 2.9 L Lipase 173 H 08/20/20 08/20/20 07:02 07:11 WBC 14.8 H RBC 3.29 L Hgb 8.9 L Hct 27.6 L MCV 83.9 MCH 27.1 MCHC 32.2 RDW 14.7 Plt Count 357 MPV 9.0 L Absolute Nucleated RBC 0.000 Nucleated RBC % (auto) 0.0 Sodium Potassium Chloride Carbon Dioxide Anion Gap BUN Creatinine Estim Creat Clear Calc Estimated GFR POC Glucose 121 H Random Glucose Calcium Total Bilirubin Direct Bilirubin AST ALT Alkaline Phosphatase Total Protein Albumin Lipase Discharge Plan Discharge Patient Disposition: Home, Self-Care Discharge Diagnosis: sepsis, gallstone pancreatitis Referrals: Jordan Gabriel MD [Primary Care Provider] - 1 Week Aj Jackson MD [Physician] - 1 Week Discharge Medications: New amoxicillin-pot clavulanate [Augmentin] 875-125 mg tablet 1 tab PO Q12H Qty: 16 RF: 0 Continued metformin 500 mg tablet 1 tab PO BID RF: 0 atorvastatin 80 mg tablet 1 tab PO DAILY RF: 0 lisinopril 10 mg tablet 1 tab PO DAILY RF: 0 Xarelto 20 mg tablet 1 tab PO QPM RF: 0 Discharge Orders: Discharge Order (Routine); Ordered 08/20/20 Ordered By: Nolan Restrepo Activity on Discharge: No heavy lifting Stand Alone Forms: Patient Portal Discharge page Care Plan Goals: recovery Health Concerns: gallstone pancreatitis Plan of Treatment: augmentin for 8 more days Assessment: see above Discharge Date/Time: 08/20/20 12:25
[2020-08-20 11:22] LABS: Glucose, Whole Blood 231 mg/dL (60-115)
[2020-08-20 11:42] VITALS: BP 140/57; PULSE 81; RESP 20; TEMP 37.2; O2SAT 95
== END 2020-08-20 12:25 | disposition home or self-care (01) | DRG 853 ==
LOC: HO.ED 08-14 03:30 → HO.EDOVER 08-14 03:39 → HO.IMC 08-14 23:16
PROVIDERS: Internal Medicine; Surgery; Admitting Provider Internal Medicine; Emergency Provider Student in an Organized Health Care Education/Training Program; PCP Internal Medicine; Visit Provider Internal Medicine
PROC: 0FT44ZZ Resection of Gallbladder, Percutaneous Endoscopic Approach (ICD-10-PCS; CPT 47562; principal; 2020-08-18 12:00)
DX: A41.51 Sepsis due to Escherichia coli [E. coli] (principal); K85.10 Biliary acute pancreatitis without necrosis or infection; N17.9 Acute kidney failure, unspecified; R78.81 Bacteremia; K83.09 Other cholangitis; K81.0 Acute cholecystitis; I25.10 Atherosclerotic heart disease of native coronary artery without angina pectoris; E11.51 Type 2 diabetes mellitus with diabetic peripheral angiopathy without gangrene; K21.9 Gastro-esophageal reflux disease without esophagitis; E78.5 Hyperlipidemia, unspecified; Z95.1 Presence of aortocoronary bypass graft; B96.20 Unspecified Escherichia coli [E. coli] as the cause of diseases classified elsewhere; I48.0 Paroxysmal atrial fibrillation; R65.20 Severe sepsis without septic shock; Z20.822 Contact with and (suspected) exposure to COVID-19; Z87.891 Personal history of nicotine dependence; Z79.01 Long term (current) use of anticoagulants; Z79.899 Other long term (current) drug therapy
CPT/HCPCS: 36415; 71045; 71250; 74176; 74181; 76705; 80048; 80053; 80076; 81001; 81003; 82150; 82607; 82728; 82746; 82947; 83540; 83605; 83690; 83880; 84478; 85025; 85027; 85610; 86850; 86900; 86901; 87040; 87077; 87186; 87205; 87635; 88304; 93005; 99024; 99285; J0696; J1100; J2370; J2405; J2543; J3010

== ENCOUNTER 2020-08-23 12:26 | Outpatient (REF) | payer MEDICARE, SELFPAY ==
--- NOTE | ~2020-08-23 | US_ITS ---
EXAMINATION: US VENOUS ULTRASOUND WITH DOPPLER LOWER EXTREMITY, LEFT CLINICAL INFORMATION: Left leg swelling COMPARISON: None TECHNIQUE: Ultrasound of the deep veins is performed from the hip to the calf with compression sonography and color and pulse Doppler assessment. Spectral analysis with color-flow imaging is performed. FINDINGS: There is normal venous compression and respiratory variation and augmented flow. The visualized common femoral vein, superficial femoral vein, profunda femoral vein, popliteal vein, and the trifurcation region shows no evidence of deep venous thrombosis. There is reversed flow seen in the profunda femoral vein. There is no evidence of vascular malformation seen by ultrasound There is no significant popliteal fossa cyst. US/US venous duplex LE LT IMPRESSION: No DVT demonstrated in the left lower extremity. Significant edema in the calf. Reversed flow in the profunda femoral vein . Uncertain etiology
== END 2020-08-23 12:27 | disposition home or self-care (01) ==
LOC: HO.US 12:26
PROVIDERS: Visit Provider Internal Medicine
DX: I82.4Y2 Acute embolism and thrombosis of unspecified deep veins of left proximal lower extremity (principal)
CPT/HCPCS: 93971

== ENCOUNTER 2020-08-30 13:51 | Outpatient (REF) | payer MEDICARE, SELFPAY ==
[2020-08-30 13:56] LABS: MANUAL DIFF FLAG NO
[2020-08-30 14:09] LABS: Basophils Absolute Auto 0.1 X10*3/uL (0.0-0.2); Basophils Percent Auto 0.4 % (0-2); Eosinophils Percent Auto 0.2 % (0-4); Hemoglobin 9.5 g/dl (14.0-18.0); Imm Gran Abs Auto 0.07 X10*3/uL (0.00-0.03); Imm Gran Pct Auto 0.5 % (0.0-0.4); Lymphocytes Absolute Auto 1.6 X10*3/uL (1.2-4.9); Mean Corpuscular HGB Conc 31.7 g/dl (31.0-36.0); Mean Corpuscular Hemoglobin 27.3 pg (27.0-33.0); Mean Corpuscular Volume 86.2 fL (80-98); Mean Platelet Volume 9.2 fL (9.4-12.4); Monocytes Absolute Auto 0.9 X10*3/uL (0.1-1.2); Monocytes Percent Auto 6.9 % (2-11); Neutrophils Absolute Auto 10.4 X10*3/uL (2.0-8.3); Platelet Count 686 X10*3/uL (160-400); Red Blood Count 3.48 X10*6/uL (4.60-5.80); White Blood Count 13.1 X10*3/uL (4.8-10.8)
[2020-08-30 14:53] LABS: Blood Urea Nitrogen 24 mg/dL (9-16); Estimated Glomerular Filt Rate 60
== END 2020-08-30 13:52 | disposition home or self-care (01) ==
LOC: HO.LNP 13:51
PROVIDERS: Visit Provider Internal Medicine
DX: D64.9 Anemia, unspecified (principal); N17.9 Acute kidney failure, unspecified
CPT/HCPCS: 82565; 84520; 85025

== ENCOUNTER → 2020-09-01 11:10 | Outpatient (BNVA) | payer MEDICARE, SELFPAY | PROVIDERS: PCP Internal Medicine; Referring Provider Internal Medicine; Visit Provider Surgery | DX: Z48.815 Encounter for surgical aftercare following surgery on the digestive system (principal); Z87.19 Personal history of other diseases of the digestive system; Z90.49 Acquired absence of other specified parts of digestive tract | CPT/HCPCS: 99212 ==

== ENCOUNTER → 2020-09-27 08:51 | Outpatient (BNVA) | payer MEDICARE, SELFPAY | PROVIDERS: PCP Internal Medicine; Referring Provider Internal Medicine; Visit Provider Internal Medicine Cardiovascular Disease | DX: I25.10 Atherosclerotic heart disease of native coronary artery without angina pectoris (principal); I48.0 Paroxysmal atrial fibrillation | CPT/HCPCS: 99212 ==

== ENCOUNTER 2020-09-29 10:10 | Outpatient (REF) | payer MEDICARE, SELFPAY ==
[2020-09-29 10:14] LABS: MANUAL DIFF FLAG NO
[2020-09-29 11:12] LABS: Basophils Percent Auto 0.6 % (0-2); Eosinophils Absolute Auto 0.5 X10*3/uL (0.0-0.4); Eosinophils Percent Auto 7.7 % (0-4); Hematocrit 31.4 % (42-52); Hemoglobin 9.7 g/dl (14.0-18.0); Imm Gran Abs Auto 0.01 X10*3/uL (0.00-0.03); Imm Gran Pct Auto 0.2 % (0.0-0.4); Lymphocytes Absolute Auto 2.1 X10*3/uL (1.2-4.9); Lymphocytes Percent Auto 32.5 % (20-40); Mean Corpuscular HGB Conc 30.9 g/dl (31.0-36.0); Mean Corpuscular Hemoglobin 27.3 pg (27.0-33.0); Mean Corpuscular Volume 88.5 fL (80-98); Mean Platelet Volume 10.2 fL (9.4-12.4); Monocytes Absolute Auto 0.7 X10*3/uL (0.1-1.2); Monocytes Percent Auto 11.1 % (2-11); Neutrophils Percent Auto 47.9 % (45-73); Platelet Count 297 X10*3/uL (160-400); Red Blood Count 3.55 X10*6/uL (4.60-5.80); Red Cell Distribution Width 16.9 % (11.0-16.0); White Blood Count 6.3 X10*3/uL (4.8-10.8)
== END 2020-09-29 10:11 | disposition home or self-care (01) ==
LOC: HO.LNP 10:10
PROVIDERS: Visit Provider Internal Medicine
DX: D64.9 Anemia, unspecified (principal)
CPT/HCPCS: 85025

== ENCOUNTER → 2020-10-18 08:51 | Outpatient (BNV) | payer MEDICARE, SELFPAY | PROVIDERS: PCP Internal Medicine; Referring Provider Internal Medicine Cardiovascular Disease; Visit Provider Internal Medicine | DX: D64.9 Anemia, unspecified (principal) | CPT/HCPCS: 99203; 99212; 99213; 99214; G2211 ==

== ENCOUNTER 2020-10-31 11:20 | Outpatient (REF) | payer MEDICARE, SELFPAY ==
[2020-10-31 11:25] LABS: MANUAL DIFF FLAG NO
[2020-10-31 11:41] LABS: Basophils Absolute Auto 0.1 X10*3/uL (0.0-0.2); Basophils Percent Auto 0.9 % (0-2); Eosinophils Absolute Auto 0.5 X10*3/uL (0.0-0.4); Eosinophils Percent Auto 6.7 % (0-4); Hematocrit 35.1 % (42-52); Imm Gran Abs Auto 0.02 X10*3/uL (0.00-0.03); Imm Gran Pct Auto 0.3 % (0.0-0.4); Lymphocytes Absolute Auto 2.2 X10*3/uL (1.2-4.9); Lymphocytes Percent Auto 30.8 % (20-40); Mean Corpuscular HGB Conc 31.3 g/dl (31.0-36.0); Mean Corpuscular Hemoglobin 28.1 pg (27.0-33.0); Mean Corpuscular Volume 89.5 fL (80-98); Mean Platelet Volume 10.4 fL (9.4-12.4); Monocytes Absolute Auto 0.6 X10*3/uL (0.1-1.2); Monocytes Percent Auto 8.7 % (2-11); Neutrophils Absolute Auto 3.7 X10*3/uL (2.0-8.3); Neutrophils Percent Auto 52.6 % (45-73); Platelet Count 291 X10*3/uL (160-400); Red Blood Count 3.92 X10*6/uL (4.60-5.80); Red Cell Distribution Width 16.5 % (11.0-16.0); White Blood Count 7.1 X10*3/uL (4.8-10.8)
[2020-10-31 12:01] LABS: Alanine Aminotransferase 20 U/L (0-40); Albumin Level 4.1 g/dL (3.5-5.0); Alkaline Phosphatase 72 U/L (39-117); Anion Gap 15 (12-20); Aspartate Amino Transferase 20 U/L (5-37); Bilirubin Total 0.2 mg/dL (0.0-1.0); Blood Urea Nitrogen 21 mg/dL (9-16); Calcium 9.4 mg/dL (8.4-10.2); Carbon Dioxide 23 mmol/L (22-29); Chloride 107 mmol/L (96-108); Cholesterol 112 mg/dL; Estimated Glomerular Filt Rate 56; Glucose Fasting 110 mg/dL (60-99); HDL Cholesterol 45 mg/dL; Iron 45 mcg/dL (45-160); LDL Cholesterol Calculated 54 mg/dl; Percent Iron Saturation 14 % (15-50); Potassium 4.7 mmol/L (3.3-5.1); Sodium 140 mmol/L (135-145); Total Iron Binding Capacity 317 mcg/dL (228-428); Total Protein 6.6 g/dL (6.5-8.0); Triglycerides 68 mg/dL; Unsaturated Iron Binding 272 ug/dL
[2020-10-31 12:05] LABS: Reflex LDLD? No
[2020-10-31 12:14] LABS: Estimated Average Glucose 140 mg/dL; Hemoglobin A1c % 6.5 %
[2020-10-31 12:28] LABS: Glucose Urine UA NEG (NEG); Leukocyte Esterase Urine NEG (NEG); Nitrite Urine NEG (NEG); Urine Blood NEG (NEG); Urine Ketones NEG (NEG); Urine Protein NEG (NEG-TRACE)
[2020-10-31 12:40] LABS: Appearance Urine CLEAR; Color Urine YELLOW
[2020-10-31 12:44] LABS: Creatinine Urine 40.97 mg/dL; Microalbum/Creatinine Ratio Ur 36.6 ug/mg cr
== END 2020-10-31 11:21 | disposition home or self-care (01) ==
LOC: HO.LNP 11:20
PROVIDERS: Visit Provider Internal Medicine
DX: E11.9 Type 2 diabetes mellitus without complications (principal); E78.00 Pure hypercholesterolemia, unspecified; J43.1 Panlobular emphysema; D50.9 Iron deficiency anemia, unspecified; D64.9 Anemia, unspecified; R97.20 Elevated prostate specific antigen [PSA]
CPT/HCPCS: 80053; 80061; 81003; 82043; 83036; 83540; 85025

== ENCOUNTER 2020-11-07 13:26 | Outpatient (REF) | payer MEDICARE, SELFPAY ==
[2020-11-07 14:18] LABS: Prostate Specific Antigen 1.76 ng/mL (<0.05-4.0)
== END 2020-11-07 13:27 | disposition home or self-care (01) ==
LOC: HO.LNP 13:26
PROVIDERS: Visit Provider Internal Medicine
DX: R97.20 Elevated prostate specific antigen [PSA] (principal); Z12.5 Encounter for screening for malignant neoplasm of prostate
CPT/HCPCS: 84153

== ENCOUNTER 2020-12-02 08:47 | Day surgery (SDC) | payer MEDICARE, SELFPAY ==
[2020-11-25 15:45] VITALS: BMI 26.7
[2020-11-25 16:09] VITALS: BMI 27.4
--- NOTE | 2020-12-01 13:09 | HO.ANESPROP2 ---
Documented by User: Meg Bolden NP 12/01/20 13:17 HPI - Anesthesia Eval Consult details Narrative: 80yo M for Upper Endoscopy and Colonoscopy Xarelto for PAF s/p biatrial MAZE Vocal chord CA s/p radiation PMFSH Active Problems Active Problems: All Active Problems (Updated 11/25/20 @ 16:08 by Natividad Stout, BRANDON) Anemia (Chronic) Bilateral leg cramps (Acute) Abdominal pain (Acute) GARTH (acute kidney injury) (Acute) Gallstone pancreatitis (Acute) Severe sepsis (Acute) Bacteremia (Acute) PVD (peripheral vascular disease) (Acute) Paroxysmal atrial fibrillation (Acute) CAD (coronary artery disease) (Acute) Hyperlipidemia (Acute) Diabetes mellitus (Acute) HTN (hypertension) (Acute) Past Medical History Medical History (Updated 11/25/20 @ 16:08 by Natividad Stout RN) CAD (coronary artery disease) COPD (chronic obstructive pulmonary disease) Diabetes mellitus GERD (gastroesophageal reflux disease) History of blood transfusion History of cancer HTN (hypertension) Hyperlipidemia Paroxysmal atrial fibrillation PVD (peripheral vascular disease) Surgical History Surgical History (Updated 11/25/20 @ 16:12 by Natividad Stout RN) H/O excision of mass H/O heart surgery History of arthroplasty of left hip History of excision of lesion History of laparoscopic cholecystectomy History of lobectomy of lung Social History Social History (Updated 10/18/20 @ 09:04 by Kandy Causey) Household Members: Spouse Housing: House Do you presently have visiting nurse or other home services: No Alcohol intake: former Patient Tobacco Use Status: Former Tobacco user Quit Date: 2004 Tobacco use type: Cigarette Cigarette Packs Per Day: 1 Are you DNR?: No Advance Directives: No Advance Directives Information Provided: No Advance Directives on File: No service: No Meds Allergies Allergy/AdvReac Type Severity Reaction Status Date / Time No Known Allergies Allergy Verified 02/17/20 10:42 Home Medications Medication Instructions Recorded Confirmed Last Taken Type ferrous sulfate 325 mg (65 mg 325 mg PO DAILY 09/01/20 11/25/20 11/28/20 History iron) tablet (Feosol) multivitamin 1 tab PO DAILY 09/01/20 11/25/20 Unknown History omeprazole 20 mg tablet,delayed 20 mg PO BEDTIME 09/01/20 11/25/20 Unknown History release lisinopril 10 mg tablet 10 mg PO DAILY 09/27/20 10/18/20 Unknown History metformin 500 mg tablet 500 mg PO BID 09/27/20 11/25/20 Unknown History Exam Exam Date and Time: December 01, 2020 1309 Height,Weight and Vital Signs: Height 6 ft 1 in Weight 94.347 kg Narrative Narrative: EKG 07/2020 Vent. Rate : 078 BPM ? ? Atrial Rate : 080 BPM ?? P-R Int : 000 ms? QRS Dur : 094 ms ? ? QT Int : 418 ms ? ? ? P-R-T Axes : 000 069 059 degrees ?? QTc Int : 476 ms ? Normal sinus rhythm Incomplete right bundle branch block Abnormal ECG When compared with ECG of 25-OCT-2017 15:17, Incomplete right bundle branch block is now present QI 02/2020 Conclusions:: ? 1. normal LV systolic function? with at least grade 2 diastolic dysfunction 2. Biatrial enlargement, left greater than right with suggestion of left atrial myopathy 3. 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 No intracardiac thrombi, masses or vegetations 5. No significant abnormalities of cardiac valvular Doppler 6. No intra cardiac shunting 7. Normal pericardium 8. Significant atherosclerotic changes in the descending thoracic aorta. Assessment and Plan Assessment Anesthesia Assessment: Chart Reviewed Documented by User: Curtis Ozuna MD 12/02/20 10:29 [facility] Past Medical History Medical History (Updated 11/25/20 @ 16:08 by Natividad Stout, BRANDON) CAD (coronary artery disease) COPD (chronic obstructive pulmonary disease) Diabetes mellitus GERD (gastroesophageal reflux disease) History of blood transfusion History of cancer HTN (hypertension) Hyperlipidemia Paroxysmal atrial fibrillation PVD (peripheral vascular disease) Surgical History Surgical History (Updated 11/25/20 @ 16:12 by Natividad Stout, BRANDON) H/O excision of mass H/O heart surgery History of arthroplasty of left hip History of excision of lesion History of laparoscopic cholecystectomy History of lobectomy of lung Social History Social History (Updated 10/18/20 @ 09:04 by Kandy Causey) Household Members: Spouse Housing: House Do you presently have visiting nurse or other home services: No Alcohol intake: former Patient Tobacco Use Status: Former Tobacco user Quit Date: 2004 Tobacco use type: Cigarette Cigarette Packs Per Day: 1 Are you DNR?: No Advance Directives: No Advance Directives Information Provided: No Advance Directives on File: No service: No Meds Allergies Allergy/AdvReac Type Severity Reaction Status Date / Time No Known Allergies Allergy Verified 02/17/20 10:42 Home Medications Medication Instructions Recorded Confirmed Last Taken Type ferrous sulfate 325 mg (65 mg 325 mg PO DAILY 09/01/20 11/25/20 11/28/20 History iron) tablet (Feosol) multivitamin 1 tab PO DAILY 09/01/20 11/25/20 Unknown History omeprazole 20 mg tablet,delayed 20 mg PO BEDTIME 09/01/20 11/25/20 Unknown History release lisinopril 10 mg tablet 10 mg PO DAILY 09/27/20 10/18/20 Unknown History metformin 500 mg tablet 500 mg PO BID 09/27/20 11/25/20 Unknown History Exam Airway Mallampati Class: III TM Dist: >3cm Neck ROM: Full Denture: Upper Partial: Lower
[2020-12-02 09:05] VITALS: BP 163/73; PULSE 81; RESP 18; TEMP 36.6; O2SAT 95
[2020-12-02 09:06] LABS: Glucose, Whole Blood 130 mg/dL (60-115)
[2020-12-02] MEDS: Lactated Ringers 1,000 ML 100 ML IVCONT (09:26)
[2020-12-02 11:22] VITALS: BP 114/54; PULSE 54; RESP 18; TEMP 36.3; O2SAT 98
--- NOTE | 2020-12-02 11:27 | PM.OP ---
Brief Operative Note Date of Service: 12/02/20 Pre-op diagnosis: Anemia, GERD, Hx of polyps Post-op diagnosis: other (Hiatal hernia, Duodenal polyp, Diverticulosis) Procedure: EGD with biopsies; Colonoscopy to the cecum and TI Surgeon: Anthony Andrews Anesthesia: MAC Was an Metal Mine Inspector used for this Procedure?: No Estimated blood loss (mL): 3.0 Pathology: other (A. Descending duodenum B. Duodenal bulb polyp) Condition: stable Disposition: PACU
[2020-12-02 11:37] VITALS: BP 123/62; PULSE 54; RESP 18; TEMP 36.3; O2SAT 96
--- NOTE | 2020-12-02 12:24 | OP_ITS ---
SURGEON: Anthony Andrews MD INDICATIONS: The patient presents for evaluation of iron-deficiency anemia, history of gastroesophageal reflux, and history of tubular adenoma of the colon. Full consent has been obtained from him for this, including risks of bleeding and perforation. PREOPERATIVE DIAGNOSIS: POSTOPERATIVE DIAGNOSIS: PROCEDURE PERFORMED: Esophagogastroduodenoscopy with biopsies, and colonoscopy to cecum and terminal ileum. ESTIMATED BLOOD LOSS: COMPLICATIONS: ANESTHESIA: Monitored anesthesia care. ASSISTANTS: SPECIMENS: PREOPERATIVE DIAGNOSES: Iron-deficiency anemia, history of gastroesophageal reflux, history of tubular adenoma of the colon. POSTOPERATIVE DIAGNOSES: Iron-deficiency anemia, history of gastroesophageal reflux, history of tubular adenoma of the colon, hiatal hernia, duodenal bulb polyp, rule out celiac disease, diverticulosis, and internal hemorrhoids. DESCRIPTION OF PROCEDURE: The patient was placed in the left lateral decubitus position. The Olympus video gastroscope was passed in the posterior oropharynx and upper esophagus under direct vision. The scope was passed slowly into the distal esophagus. The gastroesophageal junction appeared at 39 cm. There was no sign of any esophagitis nor any gross evidence of Alvarez's mucosa. There was no stricture. The scope entered into the stomach. There was a small hiatal hernia with normal mucosa. The scope was advanced to pylorus and duodenum was cannulated to the descending portion. The duodenum including the bulb was carefully inspected. Biopsies were obtained from the second and third portions of duodenum, which appeared to be grossly normal. The duodenal bulb was an approximately 10 mm polyp, which was biopsied 3 times. There was some evidence of Yeny's gland hypertrophy as well. There was no ulceration. The scope was withdrawn back into the stomach. The gastric antrum and body appeared normal with good peristalsis. The scope was retroflexed visualizing the proximal stomach carefully, which appeared normal, without any sign of mass or ulceration. The scope was straightened out and withdrawn back into the esophagus. The esophageal mucosa appeared normal. The scope was withdrawn from the patient. He was turned around for colonoscopy. The digital rectal exam revealed no abnormalities. The Olympus video pediatric colonoscope was entered into the rectum and advanced easily to the cecum. Once in the cecum, I did identify normal-appearing cecal pouch with appendiceal orifice and a normal-appearing ileocecal valve. The terminal ileum was cannulated and appeared normal. The scope was withdrawn back into the colon. The entire cecum and ileocecal valve appeared normal. The scope was slowly withdrawn assessing all mucosal surfaces carefully. Preparation was excellent. I did not visualize any sign of polyps, colitis, nor angiodysplasia. There was a moderate amount of sigmoid diverticulosis. In the rectum, scope was retroflexed visualizing internal hemorrhoids, but no other pathology. The rectal mucosa appeared normal. The scope was straightened out and withdrawn from the patient. He tolerated the procedure well and was returned to the recovery area in stable condition. IMPRESSION: 1. Duodenal bulb polyp, status post biopsy. 2. Hiatal hernia. 3. Rule out celiac disease. 4. Diverticulosis. 5. Internal hemorrhoids. PLAN: The results of the biopsies will be checked. At this point, there is no clear etiology for his anemia. He was advised to resume his iron today. He was advised to resume his Xarelto in 48 hours. He will be seen in followup in the next 2 to 3 months. Depending upon his clinical course, and assuming that the biopsies today are nonrevealing, then I would recommend eventual small bowel video capsule study in regard to the anemia if this does persist despite the iron replacement. MD ANTHONY Covington/ART / [id number]
== END 2020-12-02 12:08 | disposition home or self-care (01) ==
PROVIDERS: PCP Internal Medicine; Visit Provider Internal Medicine
PROC: (CPT 45378; principal; 2020-12-02 10:10)
DX: D50.9 Iron deficiency anemia, unspecified (principal); K31.7 Polyp of stomach and duodenum; K57.30 Diverticulosis of large intestine without perforation or abscess without bleeding; K64.8 Other hemorrhoids; K44.9 Diaphragmatic hernia without obstruction or gangrene; I10 Essential (primary) hypertension; E11.9 Type 2 diabetes mellitus without complications; I48.92 Unspecified atrial flutter; Z86.010 Personal history of colon polyps; Z87.19 Personal history of other diseases of the digestive system; Z79.01 Long term (current) use of anticoagulants; Z79.84 Long term (current) use of oral hypoglycemic drugs; Z79.899 Other long term (current) drug therapy
CPT/HCPCS: 45378; 43239; 82947; 88305

== ENCOUNTER 2020-12-29 11:37 | Outpatient (REF) | payer MEDICARE, SELFPAY ==
[2020-12-29 11:50] LABS: OBS Int Ctl Valid YES; OBS1 NEGATIVE (NEGATIVE); OBS2 NEGATIVE (NEGATIVE); OBS3 NEGATIVE (NEGATIVE)
== END 2020-12-29 11:38 | disposition home or self-care (01) ==
LOC: HO.LNP 11:37
PROVIDERS: Visit Provider Internal Medicine
DX: D50.9 Iron deficiency anemia, unspecified (principal)
CPT/HCPCS: 82270

== ENCOUNTER → 2021-04-04 08:54 | Outpatient (BNVA) | payer MEDICARE, SELFPAY | PROVIDERS: PCP Internal Medicine; Referring Provider Internal Medicine; Visit Provider Internal Medicine Cardiovascular Disease | DX: I25.10 Atherosclerotic heart disease of native coronary artery without angina pectoris (principal); I48.0 Paroxysmal atrial fibrillation | CPT/HCPCS: 99212 ==

== ENCOUNTER 2021-05-05 10:51 | Outpatient (REF) | payer MEDICARE, SELFPAY ==
[2021-05-05 12:23] LABS: Estimated Average Glucose 123 mg/dL; Hemoglobin A1c % 5.9 %
[2021-05-05 12:30] LABS: Alanine Aminotransferase 21 U/L (0-40); Albumin Level 4.1 g/dL (3.5-5.0); Alkaline Phosphatase 61 U/L (39-117); Aspartate Amino Transferase 22 U/L (5-37); Bilirubin Direct 0.3 mg/dL (0.0-0.5); Bilirubin Total 0.6 mg/dL (0.0-1.0); Cholesterol 111 mg/dL; Glucose Fasting 106 mg/dL (60-99); HDL Cholesterol 39 mg/dL; LDL Cholesterol Calculated 62 mg/dl; Total Protein 6.8 g/dL (6.5-8.0); Triglycerides 51 mg/dL
[2021-05-05 13:34] LABS: Reflex LDLD? No
== END 2021-05-05 10:52 | disposition home or self-care (01) ==
LOC: HO.LNP 10:51
PROVIDERS: Visit Provider Internal Medicine
DX: E11.9 Type 2 diabetes mellitus without complications (principal); E78.00 Pure hypercholesterolemia, unspecified
CPT/HCPCS: 80061; 80076; 82947; 83036

== ENCOUNTER 2021-07-05 07:53 | Outpatient (REF) | payer MEDICARE, SELFPAY | END 2021-07-05 07:54 | disposition home or self-care (01) | LOC: HO.MDS 07:53 | PROVIDERS: Visit Provider Internal Medicine | DX: D50.9 Iron deficiency anemia, unspecified (principal) | CPT/HCPCS: 96365; 96366; J1200; J1750; Q0163 ==

== ENCOUNTER 2021-07-14 10:30 | Outpatient (REF) | payer MEDICARE, SELFPAY ==
[2021-07-14 11:07] LABS: Blood Urea Nitrogen 23 mg/dL (9-16); Estimated Glomerular Filt Rate 56
== END 2021-07-14 10:31 | disposition home or self-care (01) ==
LOC: HO.LNP 10:30
PROVIDERS: PCP Internal Medicine; Visit Provider Internal Medicine
DX: R79.9 Abnormal finding of blood chemistry, unspecified (principal)
CPT/HCPCS: 82565; 84520

== ENCOUNTER 2021-07-17 15:58 | Outpatient (REF) | payer MEDICARE, SELFPAY ==
[2021-07-17 16:04] LABS: MANUAL DIFF FLAG NO
[2021-07-17 16:08] LABS: Basophils Absolute Auto 0.1 X10*3/uL (0.0-0.2); Basophils Percent Auto 0.6 % (0-2); Eosinophils Absolute Auto 0.3 X10*3/uL (0.0-0.4); Eosinophils Percent Auto 4.2 % (0-4); Hematocrit 34.2 % (42.0-52.0); Hemoglobin 10.8 g/dl (14.0-18.0); Imm Gran Abs Auto 0.02 X10*3/uL (0.00-0.03); Imm Gran Pct Auto 0.2 % (0.0-0.4); Lymphocytes Absolute Auto 1.5 X10*3/uL (1.2-4.9); Lymphocytes Percent Auto 18.6 % (20-40); Mean Corpuscular HGB Conc 31.6 g/dl (31.0-36.0); Mean Corpuscular Hemoglobin 29.2 pg (27.0-33.0); Mean Corpuscular Volume 92.4 fL (80.0-98.0); Mean Platelet Volume 10.3 fL (9.4-12.4); Monocytes Absolute Auto 0.6 X10*3/uL (0.1-1.2); Monocytes Percent Auto 7.8 % (2-11); Neutrophils Absolute Auto 5.5 x10*3/uL (2.0-8.3); Neutrophils Percent Auto 68.6 % (45-73); Platelet Count 274 X10*3/uL (160-400); Red Cell Distribution Width 14.8 % (11.0-16.0)
[2021-07-17 16:17] LABS: Blood Urea Nitrogen 21 mg/dL (9-16); Estimated Glomerular Filt Rate 56; Iron 79 mcg/dL (45-160); Percent Iron Saturation 30 % (15-50); Total Iron Binding Capacity 266 mcg/dL (228-428); Unsaturated Iron Binding 187 ug/dL
== END 2021-07-17 15:59 | disposition home or self-care (01) ==
LOC: HO.LNP 15:58
PROVIDERS: Visit Provider Internal Medicine
DX: D50.9 Iron deficiency anemia, unspecified (principal); R79.9 Abnormal finding of blood chemistry, unspecified
CPT/HCPCS: 82565; 83540; 84520; 85025

== ENCOUNTER 2021-08-25 08:46 | Outpatient (REF) | payer MEDICARE, SELFPAY ==
--- NOTE | ~2021-08-25 | CT_ITS ---
EXAMINATION: CT CHEST WITHOUT CONTRAST CLINICAL INFORMATION: Malignant neoplasm COMPARISON: Previous chest CT July 2020 TECHNIQUE: Multidetector volumetric CT imaging of the chest was done. Axial MIP volume rendering provided. Sagittal and coronal reformatted images were obtained. This CT examination was performed using dose optimization techniques as appropriate, variously including the following: *Automated exposure control *Adjustment of mA and/or kV according to patient size (this includes techniques or standardized protocols for targeted exams where dose is matched to indication/reason for exam; i.e. extremities or head) *Use of iterative reconstruction technique DLP: 195 mGy-cm FINDINGS: LUNGS: Postsurgical changes from right upper lobe lobectomy. There are postsurgical changes with surgical staple line in the left upper lobe suggestive of partial left upper lobe lobectomy. There is curvilinear increased attenuation seen in the left upper lobe surrounding the surgical suture line that is stable probably representing post surgical scarring or chronic subsegmental atelectasis. There are areas of peripheral linear scarring or chronic subsegmental atelectasis seen at both lung bases. There is mild focal bronchiectasis seen in the left lower lobe adjacent to the diaphragmatic pleural surface. These findings are unchanged from previous exam. MEDIASTINUM: There are post-CABG changes. There is a left atrial appendage clip. There may be a small esophageal hernia. The mediastinum is otherwise normal. PLEURA: There is mild pleural thickening and calcification at the left lung base that is stable. There is no pleural effusion. AXILLA: No lymphadenopathy. UPPER ABDOMEN: The gallbladder has been removed. There is diverticulosis of the colon. There is a duodenal diverticulum adjacent to the head of the pancreas. There is evidence of atherosclerotic disease. OSSEOUS STRUCTURES: There are degenerative changes of the thoracic spine. There are postsurgical changes to the right ribs. There are median sternotomy wires united median sternotomy. CT/CT chest wo con IMPRESSION: Stable postsurgical changes following right upper lobe lobectomy and partial left upper lobe lobectomy. Areas of scarring or chronic subsegmental atelectasis at the lung bases that is stable. Mild left lower lobe bronchial wall thickening adjacent to the diaphragmatic pleural surface that is stable. Fleischner guidelines were followed.
== END 2021-08-25 08:47 | disposition home or self-care (01) ==
LOC: HO.CT 08:46
PROVIDERS: PCP Internal Medicine; Visit Provider Nurse Practitioner Family
DX: C34.90 Malignant neoplasm of unspecified part of unspecified bronchus or lung (principal)
CPT/HCPCS: 71250

== ENCOUNTER → 2021-10-02 08:14 | Outpatient (REF) | payer MEDICARE, SELFPAY ==
--- NOTE | 2021-10-02 08:18 | CA_ITS ---
Transthoracic Echocardiogram Patient (Last, First, Middle): Anthony Goodman C Gender: Male Date of : 1940 Age: 81 Procedure Date: 10/02/2021 Procedure Type: Transthoracic Echocardiogram Location: OP Height: 185.42 cm Weight: 92.99 kg BSA: 2.17 m2 Heart Rate: 52 bpm BP: 130 / 58 mmHg Leathersmith: SB Referring MD: Darryl Padilla MD Symptoms: I48.0 - Paroxysmal atrial fibrillation ECG Rhythm: Sinus Conclusions: - 1 Normal LV systolic function with pseudonormal filling pattern 2. Mildly dilated left atrium 3. Normal cardiac valvular Dopplers 4. No gross pericardial effusion Findings Left Ventricle Normal left ventricular size, thickness, and systolic function. The visually estimated ejection fraction is between 55-60%. Spectral Doppler is indicative of a pseudonormal filling pattern. E/E prime ratio is >15, consistent with elevated filling pressures. Evidence suggests grade II (moderate) diastolic dysfunction. Peak GLS is -17.4%, within normal limits. Right Ventricle Normal right ventricular cavity size and systolic function. Atria The left atrium is mildly dilated. There is lipomatous hypertrophy of the interatrial septum. There is no evidence of interatrial shunt. The right atrium is likely dilated. Aortic Valve There is mild calcification of the aortic valve. There is no aortic valve stenosis. There is no aortic valve regurgitation. Mitral Valve There is mild anterior mitral leaflet thickening. There is mild mitral annular calcification. There is trace mitral valve regurgitation. There is no mitral valve stenosis. Pulmonic Valve The pulmonic valve was not well visualized. Tricuspid Valve Likely normal tricuspid valve structure and function. Tricuspid regurgitation envelope is inadequate for calculation of right ventricular systolic pressure. Great Vessels All visible segments of the aorta are normal in size. The pulmonary artery was not well visualized. Venous The inferior vena cava is normal in size and collapses greater than 50% with inspiration. Pericardium/Pleural There is no evidence of pericardial effusion. Prior Study Comparison No significant change compared to prior study dated: 02/01/2020. Measurements 2D Linear Measurements IVSd: 1.04 0.6-0.9/0.6-1.0 cm LVIDd: 4.80 3.9-5.3/4.2-5.9 cm LVIDd Index: 2.21 2.4-3.2/2.2-3.1 cm/m2 LVIDs: 3.17 2.0-3.6 cm LVPWd: 0.96 0.7-1.1 cm LA Diam: 4.70 2.7-3.8/3.0-4.0 cm LAIDs Index: 2.17 1.5-2.3 cm/m2 LV Mass: 242.01 67-162/88-224 g LV Mass Index: 111.53 43-95/49-115 g/m2 LVOT Diam: 2.30 3.0+(-)1.3 cm 2D Systolic Function EF 4C: 50.80 >55% EF 2C: 44.40 >55% Mitral Valve MV Pk E: 1.14 MV PK A: 0.50 MV Decel Time: 158.00 E/A: 2.30 E'Lateral: 10.10 E'Medial: 5.55 E/E' Med: 20.50 E/E' Lat: 11.30 PHT: 46.00 MVA PHT: 4.78 Decel Grundy: 7.25 Aortic Valve AoV Pk Andrew: 1.46 AoV Mn Andrew: 0.96 AoV VTI: 0.30 AoV Pk Grad: 9.00 Aov Mn Grad: 4.00 CHRISTA Cont.VTI: 3.71 LVOT LVOT Pk Andrew: 1.33 LVOT Mn Andrew: 0.85 LVOT VTI: 0.27 LVOT Pk Grad: 7.00 LVOT Mn Grad: 3.00 LVOT Diam: 2.30 LVOT Area: 4.15 Diastolic Function MV Pk E: 1.14 MV Pk A: 0.50 E/A: 2.30 E'Medial: 5.55 E/E' Med: 20.50 E' Laterial: 10.10 E/E' Lat: 11.30 Right Ventricle TAPSE (mm): 16.30 TVS' Andrew: 15.40 Tricuspid Valve RA Press: 3.00 Great Vessels Aorta Sinus of Valsalva: 4.20 2.0-3.[address] [place]: 3.19 1.7-3.4 cm Ao Asc: 3.70 2.1-3.4 cm Pulmonary Veins Pulm Vein S/D 0.30 Pulmonary Valve PV Pk Andrew: 0.97 Peak PV Grad: 4.00 Updated in Other Vendor System with Status of Final Darryl Padilla MD electronically signed on 10/03/2021 5:11:06 PM with status of Final
== END ==
LOC: HO.CARD 08:14
PROVIDERS: PCP Internal Medicine; Visit Provider Internal Medicine Cardiovascular Disease
DX: I48.0 Paroxysmal atrial fibrillation (principal)
CPT/HCPCS: 93306; 93356

== ENCOUNTER → 2021-10-10 08:48 | Outpatient (BNVA) | payer MEDICARE, SELFPAY | PROVIDERS: PCP Internal Medicine; Referring Provider Internal Medicine; Visit Provider Internal Medicine Cardiovascular Disease | DX: I25.10 Atherosclerotic heart disease of native coronary artery without angina pectoris (principal); I48.0 Paroxysmal atrial fibrillation | CPT/HCPCS: 93005; 99212 ==

== ENCOUNTER 2021-11-03 11:14 | Outpatient (REF) | payer MEDICARE, SELFPAY ==
[2021-11-03 11:31] LABS: MANUAL DIFF FLAG NO
[2021-11-03 11:55] LABS: Appearance Urine HAZY; Color Urine STRAW; Glucose Urine UA NEG (NEG); Leukocyte Esterase Urine NEG (NEG); Nitrite Urine NEG (NEG); PH 5.5 (5.0-8.0); Specific Gravity - Urine 1.015 (1.005-1.025); Urine Blood NEG (NEG); Urine Ketones NEG (NEG); Urine Protein NEG (NEG-TRACE)
[2021-11-03 12:00] LABS: Alanine Aminotransferase 17 U/L (0-40); Albumin Level 4.1 g/dL (3.5-5.0); Alkaline Phosphatase 72 U/L (39-117); Anion Gap 15 (12-20); Aspartate Amino Transferase 14 U/L (5-37); Bilirubin Total 0.6 mg/dL (0.0-1.0); Blood Urea Nitrogen 25 mg/dL (9-16); Calcium 9.1 mg/dL (8.4-10.2); Carbon Dioxide 25 mmol/L (22-29); Chloride 105 mmol/L (96-108); Cholesterol 117 mg/dL; Estimated Glomerular Filt Rate 52; Glucose Fasting 115 mg/dL (60-99); HDL Cholesterol 51 mg/dL; Iron 49 mcg/dL (45-160); LDL Cholesterol Calculated 53 mg/dl; Percent Iron Saturation 20 % (15-50); Potassium 4.3 mmol/L (3.3-5.1); Sodium 141 mmol/L (135-145); Total Iron Binding Capacity 244 mcg/dL (228-428); Total Protein 6.5 g/dL (6.5-8.0); Triglycerides 67 mg/dL; Unsaturated Iron Binding 195 ug/dL; Uric Acid 8.9 mg/dL (3.4-7.0)
[2021-11-03 12:02] LABS: Basophils Absolute Auto 0.1 X10*3/uL (0.0-0.2); Basophils Percent Auto 0.5 % (0-2); Eosinophils Absolute Auto 0.7 X10*3/uL (0.0-0.4); Eosinophils Percent Auto 7.1 % (0-4); Hematocrit 34.8 % (42.0-52.0); Hemoglobin 11.6 g/dl (14.0-18.0); Imm Gran Abs Auto 0.05 X10*3/uL (0.00-0.03); Imm Gran Pct Auto 0.5 % (0.0-0.4); Lymphocytes Absolute Auto 2.3 X10*3/uL (1.2-4.9); Lymphocytes Percent Auto 22.7 % (20-40); Mean Corpuscular HGB Conc 33.3 g/dl (31.0-36.0); Mean Corpuscular Hemoglobin 30.7 pg (27.0-33.0); Mean Corpuscular Volume 92.1 fL (80.0-98.0); Mean Platelet Volume 10.2 fL (9.4-12.4); Monocytes Absolute Auto 1.1 X10*3/uL (0.1-1.2); Monocytes Percent Auto 10.5 % (2-11); Neutrophils Absolute Auto 5.8 x10*3/uL (2.0-8.3); Neutrophils Percent Auto 58.7 % (45-73); Platelet Count 335 X10*3/uL (160-400); Red Blood Count 3.78 X10*6/uL (4.60-5.80); Red Cell Distribution Width 14.1 % (11.0-16.0)
[2021-11-03 12:03] LABS: Estimated Average Glucose 117 mg/dL; Hemoglobin A1c % 5.7 %
[2021-11-03 12:21] LABS: PSA,Total (Free>4and<10) 1.72 ng/mL (0.00-4.00)
[2021-11-03 13:14] LABS: Creatinine Urine 52.32 mg/dL
[2021-11-03 13:27] LABS: Squamous Epithelial Cell Urine 1+ /LPF
[2021-11-03 13:28] LABS: RBC Urine 0 /HPF (0); WBC Urine 0-2 /HPF (0-4)
== END 2021-11-03 11:15 | disposition home or self-care (01) ==
LOC: HO.LNP 11:14
PROVIDERS: Visit Provider Internal Medicine
DX: Z12.5 Encounter for screening for malignant neoplasm of prostate (principal); E11.9 Type 2 diabetes mellitus without complications; E78.00 Pure hypercholesterolemia, unspecified; R59.0 Localized enlarged lymph nodes; R97.20 Elevated prostate specific antigen [PSA]; D50.9 Iron deficiency anemia, unspecified; I10 Essential (primary) hypertension; M10.9 Gout, unspecified
CPT/HCPCS: 80053; 80061; 81001; 82043; 83036; 83540; 84153; 84550; 85025

== ENCOUNTER 2021-11-24 12:17 | Outpatient (REF) | payer MEDICARE, SELFPAY ==
--- NOTE | ~2021-11-24 | US_ITS ---
EXAMINATION: BILATERAL LOWER EXTREMITY arterial DUPLEX. CLINICAL INFORMATION: Peripheral vascular disease COMPARISON: Arterial duplex ultrasound on 02/25/2020 TECHNIQUE: duplex Doppler techniques with wave form analysis and measurement of velocities in the common femoral, profunda femoral, superficial femoral, popliteal, tibial and peroneal arteries. The study was performed only at rest. FINDINGS: RIGHT LEG DIRECT DUPLEX: Common femoral artery: 173 cm/s, Multiphasic Profunda femoris artery: 132 cm/s, Multiphasic Superficial femoral artery (proximal): 161 cm/s, Multiphasic Superficial femoral artery (mid): 112 cm/s, Multiphasic Superficial femoral artery (distal): 117 cm/s, Multiphasic Proximal Popliteal artery: 118 cm/s, Multiphasic Mid posterior tibial artery: Occluded Peroneal artery: 82 cm/s, Multiphasic LEFT LEG: DIRECT DUPLEX: Common femoral artery: 191 cm/s, Multiphasic Profunda femoris artery: 190 cm/s, Multiphasic Superficial femoral artery (proximal): 409 cm/s, Multiphasic Superficial femoral artery (mid): 118 cm/s, Multiphasic Superficial femoral artery (distal): 105 cm/s, Multiphasic Proximal Popliteal artery: 96 cm/s, Multiphasic Mid posterior tibial artery: 20 cm/s, Multiphasic Peroneal artery: 26 cm/s, Multiphasic Incidental note is made of arrhythmia. US/US arterial duplex LE IMPRESSION: Right lower extremity: Atherosclerotic disease throughout the right lower extremity. Occlusion of the posterior tibial artery. Left lower extremity: Atherosclerotic disease throughout the left lower extremity with elevated velocities suggesting moderate-severe stenosis at the proximal superficial femoral artery. Incidental note is made of arrhythmia. Consider cardiology evaluation if this is a new finding.
== END 2021-11-24 12:18 | disposition home or self-care (01) ==
LOC: HO.US 12:17
PROVIDERS: Visit Provider Internal Medicine Cardiovascular Disease
DX: I73.9 Peripheral vascular disease, unspecified (principal)
CPT/HCPCS: 93925

== ENCOUNTER → 2022-01-23 09:15 | Outpatient (BNVA) | payer MEDICARE, SELFPAY | PROVIDERS: PCP Internal Medicine; Visit Provider Surgery Vascular Surgery | DX: I73.9 Peripheral vascular disease, unspecified (principal) | CPT/HCPCS: 99202 ==

== ENCOUNTER → 2022-03-05 08:21 | Outpatient (BNVA) | payer MEDICARE, SELFPAY | PROVIDERS: PCP Internal Medicine; Visit Provider Anesthesiology | DX: M48.061 Spinal stenosis, lumbar region without neurogenic claudication (principal); G89.4 Chronic pain syndrome | CPT/HCPCS: 99202 ==

== ENCOUNTER 2022-03-20 08:50 | Outpatient (REF) | payer MEDICARE, SELFPAY ==
--- NOTE | ~2022-03-20 | MR_ITS ---
EXAMINATION: MR LUMBAR SPINE WITHOUT CONTRAST CLINICAL INFORMATION: Chronic pain syndrome. Spinal stenosis. COMPARISON: Lumbar spine MRI December 16, 2014. TECHNIQUE: MRI of the lumbar spine was obtained using routine sequences without contrast. FINDINGS: The lumbar vertebral bodies maintain normal heights. There is mild anterolisthesis of L4 on L5. There is multilevel intervertebral disc height loss. There is a hemangioma in the L5 vertebral body. The distal spinal cord appears normal. The conus medullaris terminates normally at the L1 level. The extraspinal soft tissues are within normal limits. SPINAL LEVELS: T12-L1: The central protrusion without spinal canal or neural foraminal stenosis. L1-L2: Disc bulging with new central protrusion resulting in narrowing of the bilateral subarticular zones. Mild spinal canal stenosis. No significant neural foraminal stenosis. L2-L3: Disc bulging with ligamentum flavum infolding and mild facet arthropathy resulting in mild to moderate spinal canal stenosis, progressed from prior. Mild bilateral neural foraminal stenosis. L3-L4: Disc bulging with ligament flavum infolding moderate facet arthropathy resulting in bilateral subarticular stenosis and mild spinal canal stenosis. Mild to moderate bilateral neural foraminal stenosis without significant change. L4-L5: Disc bulging with ligamentum flavum infolding and moderate to severe facet arthropathy results in unchanged severe spinal canal stenosis with compression of the thecal sac and traversing nerve roots. Mild to moderate left and moderate to severe right neural foraminal stenosis with unchanged compression of the exiting right L4 nerve root. L5-S1: Disc bulging with annular fissuring and moderate to severe facet arthropathy. No spinal canal stenosis. Moderate left and mild right neural foraminal stenosis with mild compression of the exiting left L5 nerve root, similar to prior. MR/MR lumbar spine wo con IMPRESSION: 1. At L4-L5 there is unchanged severe spinal canal stenosis with compression of the thecal sac and traversing nerve roots in addition to compression of the exiting right L4 nerve root. 2. At L2-L3 there is progressive now mild to moderate spinal canal stenosis. 3. At L3-L4 there is mild to moderate bilateral neural foraminal stenosis and bilateral subarticular stenosis. 4. At L5-S1 there is moderate left neural foraminal stenosis with unchanged mild compression of the exiting left L5 nerve root.
== END 2022-03-20 08:51 | disposition home or self-care (01) ==
LOC: HO.MRI 08:50
PROVIDERS: Visit Provider Anesthesiology
DX: M48.061 Spinal stenosis, lumbar region without neurogenic claudication (principal); G89.4 Chronic pain syndrome
CPT/HCPCS: 72148

== ENCOUNTER → 2022-04-17 09:04 | Outpatient (BNVA) | payer MEDICARE, SELFPAY | PROVIDERS: PCP Internal Medicine; Referring Provider Internal Medicine; Visit Provider Internal Medicine Cardiovascular Disease | DX: I25.10 Atherosclerotic heart disease of native coronary artery without angina pectoris (principal); I48.0 Paroxysmal atrial fibrillation | CPT/HCPCS: 99212 ==

== ENCOUNTER 2022-07-31 08:15 | Outpatient (REF) | payer MEDICARE, SELFPAY ==
--- NOTE | ~2022-07-31 | US_ITS ---
EXAMINATION: ANKLE-BRACHIAL INDICES SINGLE LEVEL PULSE VOLUME RECORDING ARTERIAL DUPLEX BILATERAL LEGS CLINICAL INFORMATION: Peripheral vascular disease. COMPARISON: None TECHNIQUE: Ankle-brachial indices and PVR at the ankle were obtained. Duplex Doppler of the bilateral lower extremity arterial systems was performed. FINDINGS: RIGHT: Ankle-brachial index: 1.31 and 1.19 PVR: Normal Common femoral: PSV 180 cm/s. Biphasic waveform. Deep femoral: PSV 123 cm/s. Biphasic waveform. Proximal superficial femoral: PSV 160 cm/s. Biphasic waveform. Mid superficial femoral: PSV 134 cm/s. Biphasic waveform. Distal superficial femoral: PSV 128 cm/s. Biphasic waveform. Popliteal: PSV 96 cm/s. Biphasic waveform. Posterior tibial: PSV 94 cm/s. Biphasic waveform. LEFT: Ankle-brachial index: 1.26 and 1.12 PVR: Normal Common femoral: PSV 160 cm/s. Biphasic waveform. Deep femoral: PSV 135 cm/s. Biphasic waveform. Proximal superficial femoral: PSV 213 cm/s. Biphasic waveform. Mid superficial femoral: PSV 101 cm/s. Biphasic waveform. Distal superficial femoral: PSV 166 cm/s. Biphasic waveform. Popliteal: PSV 73 cm/s. Triphasic waveform. Posterior tibial: PSV 59 cm/s. Biphasic waveform. US/US CORRINA complete IMPRESSION: Right: Mild diffuse atherosclerosis. Normal CORRINA and PVR. No evidence of hemodynamically significant peripheral arterial disease by Doppler. Left: Mild diffuse atherosclerosis. Focally elevated velocity proximal superficial femoral artery with calcified plaque consistent with a moderate stenosis. The distal waveforms are normal. Normal distal CORRINA and PVR.
--- NOTE | ~2022-07-31 | US_ITS ---
EXAMINATION: ANKLE-BRACHIAL INDICES SINGLE LEVEL PULSE VOLUME RECORDING ARTERIAL DUPLEX BILATERAL LEGS CLINICAL INFORMATION: Peripheral vascular disease. COMPARISON: None TECHNIQUE: Ankle-brachial indices and PVR at the ankle were obtained. Duplex Doppler of the bilateral lower extremity arterial systems was performed. FINDINGS: RIGHT: Ankle-brachial index: 1.31 and 1.19 PVR: Normal Common femoral: PSV 180 cm/s. Biphasic waveform. Deep femoral: PSV 123 cm/s. Biphasic waveform. Proximal superficial femoral: PSV 160 cm/s. Biphasic waveform. Mid superficial femoral: PSV 134 cm/s. Biphasic waveform. Distal superficial femoral: PSV 128 cm/s. Biphasic waveform. Popliteal: PSV 96 cm/s. Biphasic waveform. Posterior tibial: PSV 94 cm/s. Biphasic waveform. LEFT: Ankle-brachial index: 1.26 and 1.12 PVR: Normal Common femoral: PSV 160 cm/s. Biphasic waveform. Deep femoral: PSV 135 cm/s. Biphasic waveform. Proximal superficial femoral: PSV 213 cm/s. Biphasic waveform. Mid superficial femoral: PSV 101 cm/s. Biphasic waveform. Distal superficial femoral: PSV 166 cm/s. Biphasic waveform. Popliteal: PSV 73 cm/s. Triphasic waveform. Posterior tibial: PSV 59 cm/s. Biphasic waveform. US/US arterial duplex LE BI IMPRESSION: Right: Mild diffuse atherosclerosis. Normal CORRINA and PVR. No evidence of hemodynamically significant peripheral arterial disease by Doppler. Left: Mild diffuse atherosclerosis. Focally elevated velocity proximal superficial femoral artery with calcified plaque consistent with a moderate stenosis. The distal waveforms are normal. Normal distal CORRINA and PVR.
== END 2022-07-31 08:16 | disposition home or self-care (01) ==
LOC: HO.US 08:15
PROVIDERS: PCP Internal Medicine; Visit Provider Surgery Vascular Surgery
DX: I70.213 Atherosclerosis of native arteries of extremities with intermittent claudication, bilateral legs (principal)
CPT/HCPCS: 93923; 93925

== ENCOUNTER 2022-08-03 10:32 | Outpatient (REF) | payer MEDICARE, SELFPAY ==
[2022-08-03 11:05] LABS: Blood Urea Nitrogen 25 mg/dL (9-16)
== END 2022-08-03 10:33 | disposition home or self-care (01) ==
LOC: HO.LNP 10:32
PROVIDERS: Visit Provider Internal Medicine
DX: I10 Essential (primary) hypertension (principal)
CPT/HCPCS: 84520

== ENCOUNTER → 2022-08-21 08:59 | Outpatient (BNVA) | payer MEDICARE, SELFPAY | PROVIDERS: PCP Internal Medicine; Visit Provider Surgery Vascular Surgery | DX: I73.9 Peripheral vascular disease, unspecified (principal) | CPT/HCPCS: 99212 ==

== ENCOUNTER 2022-08-27 15:21 | Outpatient (REF) | payer MEDICARE, SELFPAY ==
[2022-08-27 17:20] LABS: Blood Urea Nitrogen 24 mg/dL (9-16); Estimated Glomerular Filt Rate 58
== END 2022-08-27 15:22 | disposition home or self-care (01) ==
LOC: HO.LAB 15:21
PROVIDERS: PCP Internal Medicine; Visit Provider Nurse Practitioner Family
DX: E11.9 Type 2 diabetes mellitus without complications (principal)
CPT/HCPCS: 36415; 82565; 84520

== ENCOUNTER 2022-08-28 13:16 | Outpatient (REF) | payer MEDICARE, SELFPAY ==
--- NOTE | ~2022-08-28 | CT_ITS ---
EXAMINATION: CT CHEST WITH CONTRAST CLINICAL INFORMATION: Lung cancer COMPARISON: Previous chest CT most recent August 2021 TECHNIQUE: Multidetector volumetric CT imaging of the chest was obtained after the administration of 65 mL of Omnipaque 350 intravenous contrast without immediate adverse reactions. Axial MIP volume rendering provided. Sagittal and coronal reformatted images were obtained. This CT examination was performed using dose optimization techniques as appropriate, variously including the following: *Automated exposure control *Adjustment of mA and/or kV according to patient size (this includes techniques or standardized protocols for targeted exams where dose is matched to indication/reason for exam; i.e. extremities or head) *Use of iterative reconstruction technique DLP: 153 mGy-cm FINDINGS: LUNGS: Stable postsurgical changes following right upper lobe lobectomy and partial left upper lobe lobectomy. Scarring or chronic subsegmental atelectasis adjacent to the surgical suture line in the left upper lobe unchanged. Mild airways disease with bronchial wall thickening and increased peribronchial attenuation in the right lower lobe for example axial image 23 series 3. Small peripheral or subpleural areas of a scarring or chronic subsegmental atelectasis in the right lung for example axial image 43 series 3 is stable. Mild focal bronchiectasis in the left lower lobe clustered peripheral or subpleural density probably calcified nodules for example axial image 48 series 3 stable. The MEDIASTINUM: Post-CABG changes. Atrial appendage clip. No enlarged hilar or mediastinal lymph nodes. Surgical clips in the right hilum. No pericardial effusion. There may be a small hiatal hernia. PLEURA: There is no pleural effusion. No pleural mass or thickening. AXILLA: No lymphadenopathy. UPPER ABDOMEN: The gallbladder is. Removed. There are small 5 mm low-attenuation liver lesions. These appear similar to prior chest CT scan. These are difficult to characterize due to small size but may represent cysts. The gallbladder has been removed. OSSEOUS STRUCTURES: Degenerative changes of the spine. Median sternotomy. CT/CT chest w IV con IMPRESSION: Stable chest CT exam. No acute findings. Fleischner guidelines were followed.
[2022-08-28] MEDS: iohexoL 350 MG/ML 100 ML INFUS..BTL IV (13:56)
== END 2022-08-28 13:17 | disposition home or self-care (01) ==
LOC: HO.CT 13:16
PROVIDERS: PCP Internal Medicine; Visit Provider Nurse Practitioner Family
DX: C34.90 Malignant neoplasm of unspecified part of unspecified bronchus or lung (principal)
CPT/HCPCS: 71260; Q9967

== ENCOUNTER 2022-11-06 10:53 | Outpatient (REF) | payer MEDICARE, SELFPAY ==
[2022-11-06 11:03] LABS: MANUAL DIFF FLAG NO
[2022-11-06 11:13] LABS: Appearance Urine Clear; Color Urine Yellow; Glucose Urine UA Negative (Negative); Leukocyte Esterase Urine Negative (Negative); Nitrite Urine Negative (Negative); PH 5.5 (5.0-9.0); Urine Blood Negative (Negative); Urine Ketones Negative (Negative); Urine Protein Negative (Neg-Trace)
[2022-11-06 11:16] LABS: Basophils Absolute Auto 0.1 X10*3/uL (0.0-0.2); Eosinophils Absolute Auto 0.6 X10*3/uL (0.0-0.4); Eosinophils Percent Auto 6.8 % (0-4); Hematocrit 34.2 % (42.0-52.0); Hemoglobin 10.6 g/dl (14.0-18.0); Imm Gran Abs Auto 0.02 X10*3/uL (0.00-0.03); Imm Gran Pct Auto 0.2 % (0.0-0.4); Lymphocytes Absolute Auto 2.1 X10*3/uL (1.2-4.9); Lymphocytes Percent Auto 25.6 % (20-40); Mean Corpuscular Hemoglobin 27.3 pg (27.0-33.0); Mean Corpuscular Volume 88.1 fL (80.0-98.0); Mean Platelet Volume 10.4 fL (9.4-12.4); Monocytes Absolute Auto 0.8 X10*3/uL (0.1-1.2); Monocytes Percent Auto 9.8 % (2-11); Neutrophils Absolute Auto 4.6 x10*3/uL (2.0-8.3); Neutrophils Percent Auto 56.6 % (45-73); Platelet Count 338 X10*3/uL (160-400); Red Blood Count 3.88 X10*6/uL (4.60-5.80); Red Cell Distribution Width 14.7 % (11.0-16.0); White Blood Count 8.1 X10*3/uL (4.8-10.8)
[2022-11-06 11:18] LABS: Bacteria Urine None Seen (None Seen); Hyaline Casts Urine 0-2 /LPF (0-2); RBC Urine 0-2 /HPF (0-2); Squamous Epithelial Cell Urine 0-2 /HPF (0-2); WBC Urine 0-5 /HPF (0-5)
[2022-11-06 11:21] LABS: Alanine Aminotransferase 18 U/L (0-40); Albumin Level 4.2 g/dL (3.5-5.0); Alkaline Phosphatase 71 U/L (39-117); Anion Gap 12 (12-20); Aspartate Amino Transferase 20 U/L (5-37); Bilirubin Total 0.5 mg/dL (0.0-1.0); Blood Urea Nitrogen 28 mg/dL (9-16); Calcium 9.7 mg/dL (8.4-10.2); Carbon Dioxide 24 mmol/L (22-29); Chloride 109 mmol/L (96-108); Cholesterol 120 mg/dL; Estimated Glomerular Filt Rate 47; Glucose Fasting 101 mg/dL (60-99); HDL Cholesterol 42 mg/dL; Iron 60 mcg/dL (45-160); LDL Cholesterol Calculated 61 mg/dl; Percent Iron Saturation 22 % (15-50); Potassium 4.9 mmol/L (3.3-5.1); Sodium 140 mmol/L (135-145); Total Iron Binding Capacity 274 mcg/dL (228-428); Total Protein 7.2 g/dL (6.5-8.0); Triglycerides 86 mg/dL; Unsaturated Iron Binding 214 ug/dL
[2022-11-06 11:35] LABS: Estimated Average Glucose 117 mg/dL; Hemoglobin A1c % 5.7 %
[2022-11-06 11:42] LABS: PSA,Total (Free>4and<10) 2.48 ng/mL (0.00-4.00)
[2022-11-06 12:07] LABS: Creatinine Urine 38.74 mg/dL; Microalbum/Creatinine Ratio Ur 36.1 ug/mg cr
== END 2022-11-06 10:54 | disposition home or self-care (01) ==
LOC: HO.LNP 10:53
PROVIDERS: Visit Provider Internal Medicine
DX: Z12.5 Encounter for screening for malignant neoplasm of prostate (principal); E11.9 Type 2 diabetes mellitus without complications; E78.00 Pure hypercholesterolemia, unspecified; R97.20 Elevated prostate specific antigen [PSA]; D50.9 Iron deficiency anemia, unspecified; I10 Essential (primary) hypertension
CPT/HCPCS: 80053; 80061; 81001; 82043; 83036; 83540; 84153; 85025

== ENCOUNTER 2022-11-14 11:01 | Outpatient (REF) | payer MEDICARE, SELFPAY ==
--- NOTE | ~2022-11-14 | XR_ITS ---
EXAMINATION: XR CHEST CLINICAL INFORMATION: Persistent cough COMPARISON: CT of the chest from 08/28/2022 TECHNIQUE: 2 views of the chest were obtained. FINDINGS: Patient is status post CABG and there is extra appendage clip. Lungs are hyperinflated with increased interstitial markings and flattening of the diaphragm more prominent on the right with blunting of right costophrenic angle. There is blunting of right costophrenic angle. Heart is not enlarged. XR/XR chest 2V IMPRESSION: Postsurgical changes. COPD. No evidence of pneumonia.
== END 2022-11-14 11:02 | disposition home or self-care (01) ==
LOC: HO.XRAY 11:01
PROVIDERS: PCP Internal Medicine; Visit Provider Internal Medicine
DX: R05.3 Chronic cough (principal)
CPT/HCPCS: 71046

== ENCOUNTER → 2022-11-27 08:08 | Outpatient (REF) | payer MEDICARE, SELFPAY ==
--- NOTE | ~2022-11-27 | NM_ITS ---
Lexiscan Myocardial perfusion study Indication: Coronary disease, history of bypass surgery, assess for ischemia Technique: The patient was brought in for a Lexiscan perfusion study on 11/27/2022 and was injected 0.4 mg of Lexiscan intravenously. Within a minute of this injection 30 mCi of sestamibi was given intravenously. Images were obtained using the SPECT gamma camera interlaced with the gating device. Images were obtained in supine position. Resting perfusion study was performed on 11/28/2022. Patient was administered 30 mCi of sestamibi intravenously at rest. Images were then obtained in supine position. Images were processed with the software and compared side to side in short axis, horizontal long axis and vertical long axis views. Total DLP 78mGy-cm. Findings: Raw acquisition reviewed. The stress perfusion study showed mildly diminished tracer uptake along the inferior wall. With CT attenuation correction, there is significant improvement suggestive of diaphragmatic attenuation artifact. The gated study shows normal LV systolic function with calculated LVEF of > 70%. LV cavity is normal in size. The gated study shows normal wall thickening and contraction of segments. Resting study shows mildly diminished tracer uptake along the inferior wall. There is improvement with CT attenuation correction is a distal of diaphragmatic attenuation artifact. Gating at rest reveals normal wall motion with ejection fraction at > 70%. The findings are consistent with no clear evidence of any ischemia or infarction. NM/NM cardiolite stress test Impression: 1. Myocardial perfusion imaging study shows normal myocardial perfusion. 2. Gated LVEF is > 70% during stress and rest. 3. Transient ischemic dilatation not present. EKG component of the test reported separately.
--- NOTE | 2022-11-27 08:11 | CA_ITS ---
Acquisition Time: 2022-11-27 08:17:28 Total Exercise Time: 00:02:42 Test Indications: CAD Medications: ALBUTEROL ATORVASTATIN LISINOPRIL METFORMIN OMEPRAZOLE PREDNISONE XARELTO Protocol: VAHID Max HR: 114 BPM 81% of Pred: 140 BPM Max BP: 172/060 mmHG Max Work Load: 4.6 METS Exercise stress test exercise 2 miin 42 sec achieving 80% MPHR, with request to stop due to SOB and unable to conitnue to 5 min, with mild to moderate SOB, without chest discomfort, with isolated PVCs and PACs, with normotensive response to exercise, without EKG chnages at achieved workload. PT was assited to seated posotion and breathing recovered. Test changed to pharmacological stress test with Lexiscan injection while sitting and kicking his legs, without anginal symptoms, with isolated PACs and PVCs, with normotensive response to injection, with nondiagnostic EKGs. Nuclear images pending. Test reviewed with Dr. Padilla, Referred By: Darryl Padilla Overread By: DELFIN SÁNCHEZ
== END ==
LOC: HO.CARD 08:08
PROVIDERS: PCP Internal Medicine; Visit Provider Internal Medicine Cardiovascular Disease
DX: I25.10 Atherosclerotic heart disease of native coronary artery without angina pectoris (principal)
CPT/HCPCS: 78452; 93017; A9500; J0280; J2785

== ENCOUNTER → 2022-11-27 08:11 | Outpatient (BNV) | payer MEDICARE, SELFPAY | PROVIDERS: PCP Internal Medicine; Visit Provider Internal Medicine | DX: I25.10 Atherosclerotic heart disease of native coronary artery without angina pectoris (principal) | CPT/HCPCS: 78452; 93016; 93018 ==

== ENCOUNTER 2022-12-11 08:42 | Outpatient (REF) | payer MEDICARE, SELFPAY ==
--- NOTE | ~2022-12-11 | XR_ITS ---
EXAMINATION: XR HIP, LEFT CLINICAL INFORMATION: Presence of left artificial hip joint COMPARISON: 07/01/2017 TECHNIQUE: AP view of the pelvis and 2 views of the left hip. FINDINGS: Left total hip prosthesis appears intact. Degenerative changes in the imaged lower lumbar spine. Bones are diffusely demineralized. Surgical clip right hemipelvis. Advanced degenerative changes right hip. XR/XR hip LT w PEL1V IMPRESSION: Left total hip prosthesis appears intact. Advanced degenerative changes right hip. Additional imaging with CT scan or MRI should be considered for better visualization as these modalities are much more sensitive for detection of fracture or other underlying pathology.
== END 2022-12-11 08:43 | disposition home or self-care (01) ==
LOC: HO.XRAY 08:42
PROVIDERS: Visit Provider Physical Medicine & Rehabilitation
DX: Z96.642 Presence of left artificial hip joint (principal)
CPT/HCPCS: 73502

== ENCOUNTER 2022-12-21 09:55 | Outpatient (REF) | payer MEDICARE, SELFPAY ==
--- NOTE | ~2022-12-21 | XR_ITS ---
EXAMINATION: XR PELVIS CLINICAL INFORMATION: Pain in hip. COMPARISON: X-ray of the left hip 12/11/2022 and X-ray of the pelvis June 2017. TECHNIQUE: AP low pelvis. FINDINGS: Left total hip arthroplasty noted with the components in the usual in unchanged position. No periprosthetic fracture or suspicious area of lucency. Right hip: There is joint space narrowing and probable subchondral cystic change along the superolateral acetabulum. Findings indicative of at least mild osteoarthritis. A surgical clip overlies the left symphysis pubis. Partially visualized sacroiliac joints unremarkable. Symphysis pubis unremarkable. XR/XR pelvis 1-2V IMPRESSION: Right Hip: Mild osteoarthritis unchanged. Left Hip: Left total hip arthroplasty without change or complication by x-ray.
== END 2022-12-21 09:56 | disposition home or self-care (01) ==
LOC: HO.HOSX 09:55
PROVIDERS: Visit Provider Orthopaedic Surgery
DX: Z96.642 Presence of left artificial hip joint (principal); M48.00 Spinal stenosis, site unspecified; E11.9 Type 2 diabetes mellitus without complications; G89.4 Chronic pain syndrome
CPT/HCPCS: 72170; 99212

== ENCOUNTER 2022-12-21 09:56 | Outpatient (AMB) | payer MEDICARE, SELFPAY ==
--- NOTE | 2022-12-21 10:31 | A.OFFVIS_ITS ---
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 Hx of Left MONTSERRAT 01/01/2012. He was later referred to [facility] who administered lumbar epidurals as well as minimally invasive lumbar decompression surgery. Patient reports that he has been having this pain for many years now, the treatments that were done at [facility] have not helped. This pain is felt only while standing and walking. Desnies numbnesss and tingling. He does not take anything for his pain. 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 He has a hx of left MONTSERRAT, DOS: 01/01/12. He complains of having this pain for several years following his surgery. He says his pain is in his groin and radiates down into his knee, and occurs primarily with prolonged walking. He describes his pain as burning, along with numbness and tingling. He has a hx of lumbar injections by [facility] and a later lumbar decompression surgery. He says these injections helped him feel normal for a short period of time before his pain returned. He says the procedure helped him for a short period, but his pain returned and he is frustrated by this. He has PVD, CAD, and Diabetes. [facility] History GARTH (acute kidney injury) CAD (coronary artery disease) COPD (chronic obstructive pulmonary disease) Diabetes mellitus Gallstone pancreatitis GERD (gastroesophageal reflux disease) History of blood transfusion History of cancer HTN (hypertension) Hyperlipidemia Paroxysmal atrial fibrillation PVD (peripheral vascular disease) Severe sepsis Surgical History H/O excision of mass H/O heart surgery History of arthroplasty of left hip History of excision of lesion History of laparoscopic cholecystectomy History of lobectomy of lung Social History Household Members: Spouse Housing: House Are you a primary child day care center worker to a significant other at home: No Do you presently have visiting nurse or other home services: No Alcohol intake: former Patient Tobacco Use Status: Former Tobacco user Quit Date: 2004 Tobacco use type: Cigarette Cigarette Packs Per Day: 1 Use of substances other than those prescribed or required for medical reasons: No Have you been hit, kicked, punched, or otherwise hurt by someone within the past year? If so, by whom?: No Do you feel safe in your current relationship?: Yes Do you have thoughts of harming others: None Do you have a plan to hurt others: No Plan Do you have the means to hurt others: No Recently lost weight without trying: No service: Yes Current occupational status: retired Review of Systems Const All systems reviewed & are unremarkable except as noted in HPI and below Physical Exam Const General: no acute distress, alert and awake Orientation/consciousness: patient oriented x3 HEENT Head: Yes normocephalic and Yes atraumatic Eyes EOM: EOMs intact bilaterally Resp Effort & Inspection: normal respiratory effort and able to speak in complete sentences Cardio Jugular venous distension: no JVD Skin General skin exam: turgor normal Rashes: no rashes Neuro General: patient oriented x3 Extrem Other: Left Hip: well healed inc no pain with hip ROM no hip antalgia with gait Psych Appearance: grossly normal Affect: normal affect Attitude: cooperative Results Reviewed Results Reviewed: I personally reviewed relevant radiographs. Left total hip arthroplasty in expected post operative position with no hardware complications or evidence of loosening Assessment & Plan Assessment & Plan (1) Spinal stenosis: Code(s): M48.00 - Spinal stenosis, site unspecified Plan: This is an 82 year old man with lumbar spinal stenosis and symptoms of neurogenic claudication. He has a burning pain, along with numbness & tingling, that radiates from his groin down his left leg. His pain has been present for several years and primarily occurs with prolonged ambulation >5 minutes. His groin pain is not reproducible on exam, and his radiographs show no evidence of loosening or hardware complications. He had some short-term relief from lumbar injections at [facility]. I discussed his diagnosis and treatment options. From an orthopedic perspective there is no intervention warranted. I will confer with our colleagues in Spine surgery and will contact them with more information. (2) History of total left hip arthroplasty: Comment: 10/9/12 NE Code(s): Z96.642 - Presence of left artificial hip joint (3) Diabetes mellitus: Comment: NIDDM Code(s): E11.9 - Type 2 diabetes mellitus without complications Plan: His most recent HgA1c was 5.7% on 11/06/22 (4) Chronic pain syndrome: Code(s): G89.4 - Chronic pain syndrome Plan Scribed for Cr Foley MD by Hira Drummond, spanish medical interpreter, on 12/21/22 at 11:00 AM, EST. Orders: Orders XR pelvis 1-2V 12/21/22 M25.559 - Pain in unspecified hip Coding Level of Care Code Est Pt Level 4 (14199) Diagnoses Spinal stenosis M48.00 History of total left hip arthroplasty Z96.642 Diabetes mellitus E11.9 Chronic pain syndrome G89.4
== END 2022-12-21 11:50 | disposition home or self-care (01) ==
PROVIDERS: PCP Internal Medicine; Visit Provider Orthopaedic Surgery
DX: M48.062 Spinal stenosis, lumbar region with neurogenic claudication (principal); Z96.642 Presence of left artificial hip joint; G89.4 Chronic pain syndrome
CPT/HCPCS: 99213

== ENCOUNTER 2023-01-17 11:01 | Outpatient (AMB) | payer MEDICARE, SELFPAY ==
--- NOTE | 2023-01-17 11:07 | MHC.OFFVIS ---
Intake Vital Signs 01/17/23 11:09 Height 6 ft 1 in Weight 214 lb BMI 28.2 Intake Visit Reasons: New Prob - right index finger pain, DOI 01/05/23 Intake Note: Anthony 82 yr old male presents today for his right ring finger s/p slipping and jamming his finger on the equipment tester. He had x rays update today. This occurred two weeks ago. He reports tension in the top portion of his right ring finger. Allergies No Known Allergies Allergy (Verified 01/17/23 11:25) Medication List - Last Reconciled 01/17/23 by Traci Lancaster RN albuterol sulfate 90 mcg/actuation (ProAir HFA) 90 mcg inhalation DAILY PRN atorvastatin 80 mg PO DAILY ferrous sulfate (Feosol) 325 mg PO BID lisinopril 20 mg PO DAILY metformin 500 mg PO BID multivitamin 1 tab PO DAILY omeprazole 20 mg PO BEDTIME rivaroxaban (Xarelto) 20 mg PO QPM HPI New Prob - right index finger pain, DOI 01/05/23 HPI Details 82-year-old male who presents in the office today for an evaluation of right ring pain. The patient reports he slipped and jammed his right ring finger on the lawnmower on 01/05/2023. He states he has tension on the top portion of the right ring finger. His states she placed him in splint after the accident. He is accompanied in the office today by his . [facility] Medical History GARTH (acute kidney injury) CAD (coronary artery disease) COPD (chronic obstructive pulmonary disease) Diabetes mellitus Gallstone pancreatitis GERD (gastroesophageal reflux disease) History of blood transfusion History of cancer HTN (hypertension) Hyperlipidemia Paroxysmal atrial fibrillation PVD (peripheral vascular disease) Severe sepsis Surgical History H/O excision of mass H/O heart surgery History of arthroplasty of left hip History of excision of lesion History of laparoscopic cholecystectomy History of lobectomy of lung Social History Household Members: Spouse Housing: House Are you a primary livestock caretaker to a significant other at home: No Do you presently have visiting nurse or other home services: No Alcohol intake: former Patient Tobacco Use Status: Former Tobacco user Quit Date: 2004 Tobacco use type: Cigarette Cigarette Packs Per Day: 1 service: Yes Current occupational status: retired Review of Systems Const All systems reviewed & are unremarkable except as noted in HPI and below Physical Exam Vital Signs: BMI result Body Mass Index 28.2 Const General: cooperative and no acute distress Orientation/consciousness: patient oriented x3 Resp Effort & Inspection: normal respiratory effort and able to speak in complete sentences Cardio Rate: regular rate Peripheral pulses: Peripheral pulses 2+ throughout GI Palpation (GI): Soft to palpation Skin General skin exam: no rashes or lesions noted Lesions: no lesions Rashes: no rashes Neuro General: patient oriented x3 Extrem Other: Right ring finger: Mallet deformity right ring finger. No tenderness to palpation over the DIP. Full flexion and extension of the PIP and MCP. Mild erythema and edema circumferentially at the DIP distally. NO signs of infection. No open wounds. No nail bed involvement. Sensation intact. Capillary refill is brisk. Remainder of the digits right hand: Normal to inspection. No ecchymosis, erythema, or edema. Able to perform full finger flexion, extension, abduction, adduction, finger cross, okay sign, and thumbs up without deficit. Able to make a closed fist. Sensation intact. Capillary refill is brisk. Radial pulse intact. Assessment & Plan Assessment & Plan (1) Mallet deformity of right ring finger: Code(s): M20.011 - Mallet finger of right finger(s) Plan Mr. Goodman is an 82-year-old male who presents in the office today for an evaluation of right ring pain. The patient reports he slipped and jammed his right ring finger on the lawnmower on 01/05/2023. He states he has tension on the top portion of the right ring finger. His states she placed him in splint after the accident. He is accompanied in the office today by his . He will be placed in a mallet finger brace, off the shelf, while in the office today. He was educated he needs to remain in the splint for 6 weeks without removing the splint. I educated him the procedure to remove the brace to exchange for a new one. Follow up will be in 3 weeks, or sooner if needed. X-rays of the right hand obtained while in the office today and reviewed by me, Audrey Noel PA-C, revealed no acute fracture or dislocation. Mallet finger deformity noted on x-rays. Diffuse arthritic changes noted though out the hand and fingers. Orders: Orders XR hand RT min 3V Today M79.643 - Pain in unspecified hand Patient Instructions: Scribed for Audrey Noel PA-C by January Narayan medical facilities section director, on 01/17/2023 at 11:18 am, EST. Coding Level of Care Code New Pt Level 4 (85182) Diagnoses Mallet deformity of right ring finger M20.011
[2023-01-17 11:09] VITALS: BMI 28.2
== END 2023-01-17 11:48 | disposition home or self-care (01) ==
PROVIDERS: PCP Internal Medicine; Visit Provider Physician Assistant
DX: M20.011 Mallet finger of right finger(s) (principal)
CPT/HCPCS: 99213

== ENCOUNTER 2023-01-17 15:37 | Outpatient (REF) | payer MEDICARE, SELFPAY ==
--- NOTE | ~2023-01-17 | XR_ITS ---
EXAMINATION: XR HAND, RIGHT CLINICAL INFORMATION: Pain in unspecified hand. COMPARISON: None available. TECHNIQUE: PA, lateral, and oblique views of the right hand. FINDINGS: Severe degenerative changes in the 1st carpometacarpal joint with joint space narrowing and hypertrophic change and subluxation. The bones are diffusely demineralized. Degenerative changes in scattered interphalangeal joints with moderate hypertrophic change. Possible mild periosteal reaction along the shaft of the 5th metacarpal of indeterminate age and etiology. XR/XR hand RT min 3V IMPRESSION: 1. Severe degenerative changes in the 1st carpometacarpal joint. Moderate degenerative changes in scattered joints of the hand. 2. Possible mild periosteal reaction along the shaft 5th metacarpal of indeterminate age and etiology. 3. No displaced fracture. Recommend followup imaging in 10-14 days if fracture is suspected.
== END 2023-01-17 15:38 | disposition home or self-care (01) ==
LOC: HO.HOSX 15:37
PROVIDERS: Visit Provider Physician Assistant
DX: M20.011 Mallet finger of right finger(s) (principal); Z79.899 Other long term (current) drug therapy
CPT/HCPCS: 73130; 99212

== ENCOUNTER 2023-01-22 09:16 | Outpatient (AMB) | payer MEDICARE, SELFPAY ==
--- NOTE | 2023-01-22 09:19 | MHC.OFFVIS ---
Intake Vital Signs 01/22/23 09:20 Height 6 ft 1 in Weight 207 lb 3.752 oz BMI 27.3 BP 130/68 Blood Pressure Location Lt brachial Position Sitting Pulse 54 Intake Visit Reasons: f/up per NS Intake Note: 6 month follow-up with ekg Automatic Folder Seamer Required: No Field Reimbursement Manager: Field Reimbursement Manager Present Accompanied by: Spouse Allergies No Known Allergies Allergy (Verified 01/17/23 11:25) Medication List - Last Reconciled 01/22/23 by Darryl Padilla MD albuterol sulfate 90 mcg/actuation (ProAir HFA) 90 mcg inhalation DAILY PRN atorvastatin 80 mg PO DAILY ferrous sulfate (Feosol) 325 mg PO BID lisinopril 20 mg PO DAILY metformin 500 mg PO BID multivitamin 1 tab PO DAILY omeprazole 20 mg PO BEDTIME rivaroxaban (Xarelto) 20 mg PO QPM HPI HPI Comments History of Present Illness Details Anthony comes for follow-up. Denies any worsening symptoms. Continues to exertional shortness of breath especially when he carries a laundry basket up a flight of stairs. Denies any orthopnea, PND. No prolonged palpitations irregular heartbeat. Recent myocardial perfusion imaging was within normal limits. Denies any major bleeding issues or neurologic events. [facility] Medical History History of blood transfusion Severe sepsis Gallstone pancreatitis GARTH (acute kidney injury) PVD (peripheral vascular disease) History of cancer COPD (chronic obstructive pulmonary disease) GERD (gastroesophageal reflux disease) Hyperlipidemia Diabetes mellitus HTN (hypertension) Paroxysmal atrial fibrillation CAD (coronary artery disease) Surgical History H/O excision of mass History of excision of lesion History of laparoscopic cholecystectomy History of arthroplasty of left hip History of lobectomy of lung H/O heart surgery Social History Household Members: Spouse Housing: House Are you a primary sub acute care nurse to a significant other at home: No Do you presently have visiting nurse or other home services: No Alcohol intake: former Patient Tobacco Use Status: Former Tobacco user Quit Date: 2004 Tobacco use type: Cigarette Cigarette Packs Per Day: 1 service: Yes Current occupational status: retired Review of Systems Const Denies chills, Denies fatigue, Denies fever(s), Denies frequent falls, Denies weakness, Denies weight gain and Denies weight loss ENT Denies dizziness Card Denies chest pain, Denies leg edema, Denies lightheadedness, Denies palpitations, Denies dyspnea, Denies dyspnea on exertion, Denies orthopnea and Denies other (loss of consciousness) Resp Denies cough, Denies dyspnea and Denies dyspnea on exertion GI Denies hematochezia and Denies change in stool character Musc Denies abnormal gait, Denies muscle weakness, Denies numbness, Denies radiating pain into limb and Denies tingling Neuro Denies abnormal gait, Denies dizziness, Denies frequent falls, Denies numbness, Denies tingling and Denies weakness Endo Denies fatigue and Denies palpitations Physical Exam Vital Signs: Last Vital Signs Pulse 54 01/22/23 09:20 BP 130/68 01/22/23 09:20 BMI result Body Mass Index 27.3 Const General: cooperative, comfortable, no acute distress, alert, awake and other ( Positive pallor) Nutritional Appearance: average body habitus Orientation/consciousness: patient oriented x3 Limitations: no limitations Neck Neck: Yes trachea midline, Yes supple and Yes no JVD Resp Effort & Inspection: normal respiratory effort Auscultation: clear to auscultation bilaterally Cardio Jugular venous distension: no JVD Palpation: normal PMI Rate: regular rate Rhythm: regular rhythm Heart sounds: S1 normal heart sound present, S2 normal heart sound present, no click, no gallops, no murmurs and no rubs Peripheral pulses: other (Reduced distal pulses in the left lower extremity) GI Auscultation: normal bowel sounds Skin General skin exam: no rashes or lesions noted Neuro General: patient oriented x3 and no focal motor deficits Extrem General: No clubbing, No cyanosis and Yes edema ( toribio ankle edema on the left) Psych Appearance: grossly normal Office Procedures EKG Details: EKG shows normal sinus rhythm with low-amplitude P waves suggestive atrial myopathy [id number], Complete Assessment & Plan Assessment & Plan (1) CAD (coronary artery disease): Code(s): I25.10 - Atherosclerotic heart disease of [place] coronary artery without angina pectoris Plan: CAD status post coronary artery bypass grafting with no recurrent ischemia on recent myocardial perfusion imaging. Continue aggressive medical therapy. Currently on full oral anticoagulation Xarelto and with therefore avoid aspirin therapy. Lipids are well optimized on high-intensity statin therapy. Continue the same. Blood pressure is well optimized. Importance of regular physical activity was discussed. (2) Paroxysmal atrial fibrillation: Comment: xarelto Code(s): I48.0 - Paroxysmal atrial fibrillation Plan: Paroxysmal atrial fibrillation status post biatrial Maze procedure. 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 Clinically no recurrent episodes. Discussed the need for oral anticoagulation therapy given atrial pathology and multiple other risk factors to reduce risk of stroke. Continue to monitor renal function every 3 months. Does Xarelto accordingly. Currently appropriate dose of Xarelto 20 mg daily. (3) Diastolic dysfunction: Code(s): I51.89 - Other ill-defined heart diseases Plan: Diastolic dysfunction 2nd to longstanding hypertension as well as ischemic heart disease and age. No signs or symptoms of heart failure. His exertional shortness of breath could be related to diastolic dysfunction and/or deconditioning related to spine disease. Continue to monitor clinically for the same. Follow-up echocardiogram in near future. Will follow up in the clinic in 1 year's time, sooner p.r.n.. Thank you for allowing me to partake in his care Coding Level of Care Code Est Pt Level 4 (66698) Diagnoses CAD (coronary artery disease) I25.10 Paroxysmal atrial fibrillation I48.0 Diastolic dysfunction I51.89 CPT Codes EKG - CPT: [id number], Complete ([id number])
[2023-01-22 09:20] VITALS: BP 130/68; PULSE 54; BMI 27.3
== END 2023-01-22 09:50 | disposition home or self-care (01) ==
PROVIDERS: Visit Provider Internal Medicine Cardiovascular Disease
DX: I25.10 Atherosclerotic heart disease of native coronary artery without angina pectoris (principal); I48.0 Paroxysmal atrial fibrillation; I51.89 Other ill-defined heart diseases
CPT/HCPCS: 93010; 99214

== ENCOUNTER → 2023-01-22 09:16 | Outpatient (BNVA) | payer MEDICARE, SELFPAY | PROVIDERS: Visit Provider Internal Medicine Cardiovascular Disease | DX: I25.10 Atherosclerotic heart disease of native coronary artery without angina pectoris (principal); I48.0 Paroxysmal atrial fibrillation; I51.89 Other ill-defined heart diseases | CPT/HCPCS: 93005; 99212 ==

== ENCOUNTER 2023-02-08 11:09 | Outpatient (REF) | payer MEDICARE, SELFPAY ==
--- NOTE | ~2023-02-08 | XR_ITS ---
EXAMINATION: XR HAND, RIGHT CLINICAL INFORMATION: Pain. COMPARISON: None available. TECHNIQUE: PA, lateral, and oblique views of the right hand. FINDINGS: Bony alignment is normal. There is a neutral ulnar variance. There is mild bony demineralization. No fracture or dislocation is seen. There is mild osteoarthritic change of the second distal interphalangeal joint. There is moderately severe osteoarthritic change of the first carpometacarpal joint. The proximal and distal carpal rows are intact. No bone erosion is noted. There is no focal soft tissue swelling, gas or foreign body. XR/XR hand RT min 3V IMPRESSION: 1. There is mild osteoarthritic change of the second distal interphalangeal joint. 2. There is severe osteoarthritic change of the first carpometacarpal joint. 3. No fracture or dislocation is seen.
== END 2023-02-08 11:10 | disposition home or self-care (01) ==
LOC: HO.HOSX 11:09
PROVIDERS: Visit Provider Physician Assistant
DX: M20.011 Mallet finger of right finger(s) (principal)
CPT/HCPCS: 73130; 99212

== ENCOUNTER 2023-02-08 12:15 | Outpatient (AMB) | payer MEDICARE, SELFPAY ==
[2023-02-08 12:32] VITALS: BMI 27.3
--- NOTE | 2023-02-08 12:32 | MHC.OFFVIS ---
Intake Vital Signs 02/08/23 12:32 Height 6 ft 1 in Weight 207 lb BMI 27.3 Intake Visit Reasons: ov- right index finger pain, DOI 01/05/23 Intake Note: Anthony is a 82 yr old male presents today for his right ring finger pain, DOI 01/05/23. Patient reports no pain or discomfort. Denies numbness and tingling. . Allergies No Known Allergies Allergy (Verified 02/08/23 12:36) HPI ov- right index finger pain, DOI 01/05/23 HPI Details 82-year-old male who presents in the office today for a follow up of a right ring finger mallet deformity, which occurred on 01/05/2023 status post jamming his finger on the lawnmower. The patient reports no pain or discomfort while in the office today. He denies numbness or tingling. [facility] Medical History History of blood transfusion Severe sepsis Gallstone pancreatitis GARTH (acute kidney injury) PVD (peripheral vascular disease) History of cancer COPD (chronic obstructive pulmonary disease) GERD (gastroesophageal reflux disease) Hyperlipidemia Diabetes mellitus HTN (hypertension) Paroxysmal atrial fibrillation CAD (coronary artery disease) Surgical History H/O excision of mass History of excision of lesion History of laparoscopic cholecystectomy History of arthroplasty of left hip History of lobectomy of lung H/O heart surgery Social History Household Members: Spouse Housing: House Are you a primary health care facilities inspector to a significant other at home: No Do you presently have visiting nurse or other home services: No Alcohol intake: former Patient Tobacco Use Status: Former Tobacco user Quit Date: 2004 Tobacco use type: Cigarette Cigarette Packs Per Day: 1 service: Yes Current occupational status: retired Review of Systems Const All systems reviewed & are unremarkable except as noted in HPI and below Physical Exam Vital Signs: BMI result Body Mass Index 27.3 Const General: cooperative, healthy appearing and no acute distress Orientation/consciousness: patient oriented x3 Resp Effort & Inspection: normal respiratory effort and able to speak in complete sentences Cardio Rate: regular rate Peripheral pulses: Peripheral pulses 2+ throughout GI Palpation (GI): Soft to palpation Skin General skin exam: no rashes or lesions noted Lesions: no lesions Rashes: no rashes Neuro General: patient oriented x3 Extrem Other: Right ring finger: Mallet deformity right ring finger. No tenderness to palpation over the DIP. Full flexion and extension of the PIP and MCP. Mild erythema and edema circumferentially at the DIP distally. No signs of infection. No open wounds. No nail bed involvement. Sensation intact. Capillary refill is brisk. Remainder of the digits right hand: Normal to inspection. No ecchymosis, erythema, or edema. Able to perform full finger flexion, extension, abduction, adduction, finger cross, okay sign, and thumbs up without deficit. Able to make a closed fist. Sensation intact. Capillary refill is brisk. Radial pulse intact. Assessment & Plan Assessment & Plan (1) Mallet deformity of right ring finger: Code(s): M20.011 - Mallet finger of right finger(s) Plan Mr. Goodman is an 82-year-old male who presents in the office today for a follow up of a right ring finger mallet deformity, which occurred on 01/05/2023 status post jamming his finger on the lawnmower. The patient reports no pain or discomfort while in the office today. He denies numbness or tingling. The patient will continue to splint the right ring finger. I would like to see him back in 3 weeks, or sooner if needed. X-rays of the right hand which were obtained while in the office today and were reviewed by me, Audrey Noel PA-C, revealed no acute fractures or dislocation. Orders: Orders XR hand RT min 3V Today M79.643 - Pain in unspecified hand Patient Instructions: Scribed for Audrey Noel PA-C by January Narayan medical and health services manager, on 02/08/2023 at 12:21 pm, EST. Coding Level of Care Code Est Pt Level 3 (18982) Diagnoses Mallet deformity of right ring finger M20.011
== END 2023-02-08 12:46 | disposition home or self-care (01) ==
PROVIDERS: PCP Internal Medicine; Visit Provider Physician Assistant
DX: M20.011 Mallet finger of right finger(s) (principal)
CPT/HCPCS: 99213

== ENCOUNTER 2023-02-11 18:23 | Outpatient (REF) | payer MEDICARE, SELFPAY ==
--- NOTE | ~2023-02-11 | MR_ITS ---
EXAMINATION: MR LUMBAR SPINE WITHOUT CONTRAST CLINICAL INFORMATION: Stenosis, pain lumbar neurogenic claudication. COMPARISON: MRI lumbar spine on 03/20/2022. TECHNIQUE: MRI of the lumbar spine was obtained using routine sequences without contrast. FINDINGS: Grade 1 anterolisthesis at L4-L5. No acute bone marrow abnormality. Mildly heterogeneous bone marrow signal is likely degenerative. Probable intraosseous hemangioma at L5. The vertebral body heights are preserved. Multilevel disc desiccation without significant disc height loss. The visualized spinal cord is normal in caliber. No abnormal cord signal. The conus medullaris terminates at L1. T12-L1: Central disc protrusion with superimposed annular fissure. Bilateral facet arthrosis. No significant spinal canal or neural foraminal narrowing. L1-L2: Diffuse disc bulge, ligamentum flavum hypertrophy, and bilateral facet arthrosis. Mild spinal canal stenosis, similar to prior. No significant neural foraminal narrowing. L2-L3: Diffuse disc bulge, ligamentum flavum hypertrophy, and bilateral facet arthrosis. Xmvb-bv-zaiuyqcp spinal canal stenosis, similar to prior. Mild bilateral neural foraminal narrowing, unchanged. L3-L4: Diffuse disc bulge, ligamentum flavum hypertrophy, and bilateral facet arthrosis. Mild spinal canal stenosis, similar to prior. Zdhj-af-urpruxjq left greater than right neural foraminal narrowing with the disc abutting the exiting L3 nerve roots bilaterally, unchanged. L4-L5: Diffuse disc bulge, ligamentum flavum hypertrophy, and bilateral facet arthrosis. Severe spinal canal stenosis, stable to slightly progressed from prior with impingement of the cauda equina nerve roots. Ojsztjnf-jj-sqlcbi right and oggl-lh-kndhfzpj left neural foraminal narrowing with impingement of the right exiting L4 nerve roots, unchanged. L5-S1: Diffuse disc bulge with superimposed left paracentral/subarticular disc protrusion. Annular fissure and bilateral facet arthrosis. No significant spinal canal stenosis. Severe right and bnurfdof-xz-piwvit left with mass effect on the exiting L5 nerve roots bilaterally, unchanged. There is mild diffuse atrophy of the parasacral musculature. MR/MR lumbar spine wo con IMPRESSION: 1. At L4-L5, there is grade 1 anterolisthesis with multifactorial degenerative changes resulting in severe spinal canal stenosis, impingement of the cauda equina nerve roots, scjmulpz-ps-tkxdpa right and nhjw-ep-attxkded left neural foraminal narrowing with impingement of the right exiting L4 nerve roots, unchanged from prior. 2. At L5-S1, there is stable severe right and xrlfhsjn-vb-cdgtna left neural foraminal narrowing with mass effect on the exiting L5 nerve roots bilaterally. 3. Additional degenerative changes of the lumbar spine, as described above, which are similar to prior.
== END 2023-02-11 18:24 | disposition home or self-care (01) ==
LOC: HO.MRI 18:23
PROVIDERS: PCP Internal Medicine; Visit Provider Physical Medicine & Rehabilitation
DX: M48.062 Spinal stenosis, lumbar region with neurogenic claudication (principal)
CPT/HCPCS: 72148

== ENCOUNTER → 2023-02-13 07:58 | Outpatient (REF) | payer MEDICARE, SELFPAY ==
--- NOTE | 2023-02-13 08:00 | CA_ITS ---
Transthoracic Echocardiogram Patient (Last, First, Middle): Anthony Goodman C Gender: Male Date of : 1940 Age: 82 Procedure Date: 02/13/2023 Procedure Type: Transthoracic Echocardiogram Location: OP Height: 185.42 cm Weight: 93.9 kg BSA: 2.18 m2 Heart Rate: bpm BP: 138 / 62 mmHg Chief Nursing Officer: TO Referring MD: Darryl Padilla MD Symptoms: I51.89 - Other ill-defined heart diseases Study Quality: Fair ECG Rhythm: Sinus Conclusions: - The left ventricular systolic function is normal. The calculated ejection fraction is 61% by biplane method. - Evidence suggests grade II (moderate) diastolic dysfunction. - Moderately increased right ventricular cavity size. - Moderate biatrial enlargement. - No obvious valvular pathology seen on this study. - There is mild dilatation of the sinuses of Valsalva measuring 4.36 cm and mild dilatation of the ascending aorta measuring 4.00 cm. Findings Left Ventricle Normal left ventricular cavity size. There is mildly increased left ventricular wall thickness. The left ventricular systolic function is normal. The calculated ejection fraction is 61% by biplane method. There is no evidence of regional wall motion abnormalities. Evidence suggests grade II (moderate) diastolic dysfunction. There is moderate septal asymmetric hypertrophy. Right Ventricle Moderately increased right ventricular cavity size. There is normal right ventricular systolic function. Atria Moderate biatrial enlargement. Aortic Valve There is a normal trileaflet aortic valve. There is no aortic valve stenosis. There is no aortic valve regurgitation. Mitral Valve There is mild mitral annular calcification. There is trace mitral valve regurgitation. There is no mitral valve stenosis. Pulmonic Valve The pulmonic valve is likely normal. Tricuspid Valve There is trace tricuspid valve regurgitation. There is no evidence of pulmonary hypertension. Great Vessels There is mild dilatation of the sinuses of Valsalva measuring 4.36 cm and mild dilatation of the ascending aorta measuring 4.00 cm. Venous The inferior vena cava is normal in size and collapses greater than 50% with inspiration. Pericardium/Pleural There is no evidence of pericardial effusion. Prior Study Comparison Changes noted compared to prior study dated: 10/02/2021. see comments on aorta. Recommendations, Care & Conclusions No obvious valvular pathology seen on this study. Measurements 2D Linear Measurements IVSd: 1.34 0.6-0.9/0.6-1.0 cm LVIDd: 4.29 3.9-5.3/4.2-5.9 cm LVIDd Index: 1.97 2.4-3.2/2.2-3.1 cm/m2 LVIDs: 3.10 2.0-3.6 cm LVPWd: 1.11 0.7-1.1 cm LA Diam: 3.90 2.7-3.8/3.0-4.0 cm LAIDs Index: 1.79 1.5-2.3 cm/m2 LV Mass: 236.32 67-162/88-224 g LV Mass Index: 108.40 43-95/49-115 g/m2 LVOT Diam: 2.50 3.0+(-)1.3 cm 2D Systolic Function EF 4C: 59.50 >55% EF 2C: 63.20 >55% EF BiP: 61.30 >55% Mitral Valve MV VTI: 0.36 MV Pk Andrew: 0.90 MV Mn Andrew: 0.52 MV Pk Grad: 3.00 MV Mn Grad: 1.00 MV Pk E: 0.90 MV PK A: 0.37 MV Decel Time: 220.00 E/A: 2.40 E'Lateral: 10.70 E'Medial: 4.35 E/E' Med: 20.70 E/E' Lat: 8.40 PHT: 65.00 MVA PHT: 3.38 MVA Continuity: 3.13 Decel [place]: 4.08 Aortic Valve AoV Pk Andrew: 1.35 AoV Mn Andrew: 0.92 AoV VTI: 0.29 AoV Pk Grad: 7.00 Aov Mn Grad: 4.00 CHRISTA Cont.VTI: 3.83 LVOT LVOT Pk Andrew: 1.02 LVOT Mn Andrew: 0.62 LVOT VTI: 0.23 LVOT Pk Grad: 4.00 LVOT Mn Grad: 2.00 LVOT Diam: 2.50 LVOT Area: 4.91 Diastolic Function MV Pk E: 0.90 MV Pk A: 0.37 E/A: 2.40 E'Medial: 4.35 E/E' Med: 20.70 E' Laterial: 10.70 E/E' Lat: 8.40 Right Ventricle TAPSE (mm): 18.80 TVS' Andrew: 11.90 Tricuspid Valve TR Pk Andrew: 2.42 TR Pk Grad: 23.00 RA Press: 3.00 RVSP: 26.00 Great Vessels Aorta Sinus of Valsalva: 4.36 2.0-3.[address] [place]: 3.15 1.7-3.4 cm Ao Asc: 4.00 2.1-3.4 cm Updated in Other Vendor System with Status of Final Todd Chacko MD electronically signed on 02/13/2023 1:22:01 PM with status of Final
== END ==
LOC: HO.CARD 07:58
PROVIDERS: PCP Internal Medicine; Visit Provider Internal Medicine Cardiovascular Disease
DX: I51.89 Other ill-defined heart diseases (principal)
CPT/HCPCS: 93306

== ENCOUNTER → 2023-02-13 08:00 | Outpatient (BNV) | payer MEDICARE, SELFPAY | PROVIDERS: PCP Internal Medicine; Visit Provider Internal Medicine | DX: I51.89 Other ill-defined heart diseases (principal) | CPT/HCPCS: 93306 ==

== ENCOUNTER 2023-03-01 08:58 | Outpatient (AMB) | payer MEDICARE, SELFPAY ==
--- NOTE | 2023-03-01 09:00 | A.OFFVIS_ITS ---
Intake Vital Signs 03/01/23 09:03 Height 6 ft 1 in Weight 207 lb BMI 27.3 Intake Visit Reasons: ov- right index finger pain, DOI 01/05/23 Intake Note: Anthony is a 82 yr old male presents today for his right index mallet finger deformity , DOI 01/05/23. States he has cont' to splint his finger with no pain. Allergies No Known Allergies Allergy (Verified 03/01/23 09:03) HPI ov- right index finger pain, DOI 01/05/23 HPI Details 83-year-old male who presents in the off ice today for a follow up of a right ring finger mallet deformity, which occurred on 01/05/2023 status post jamming his finger on the lawnmower. The patient was last seen in the office by me on 02/08/2023 where he was instructed to continue to wear the right ring finger splint. He reports that he has worn the finger splint faithfully. While in the office the patient confirms he continues to wear the splint on is right ring finger with no pain. [facility] Medical History History of blood transfusion Severe sepsis Gallstone pancreatitis GARTH (acute kidney injury) PVD (peripheral vascular disease) History of cancer COPD (chronic obstructive pulmonary disease) GERD (gastroesophageal reflux disease) Hyperlipidemia Diabetes mellitus HTN (hypertension) Paroxysmal atrial fibrillation CAD (coronary artery disease) Surgical History H/O excision of mass History of excision of lesion History of laparoscopic cholecystectomy History of arthroplasty of left hip History of lobectomy of lung H/O heart surgery Social History Household Members: Spouse Housing: House Are you a primary toddler caregiver to a significant other at home: No Do you presently have visiting nurse or other home services: No Alcohol intake: former Patient Tobacco Use Status: Former Tobacco user Quit Date: 2004 Tobacco use type: Cigarette Cigarette Packs Per Day: 1 service: Yes Current occupational status: retired Review of Systems Const All systems reviewed & are unremarkable except as noted in HPI and below Physical Exam Vital Signs: BMI result Body Mass Index 27.3 Const General: cooperative, healthy appearing and no acute distress Orientation/consciousness: patient oriented x3 Resp Effort & Inspection: normal respiratory effort and able to speak in complete sentences Cardio Rate: regular rate Peripheral pulses: Peripheral pulses 2+ throughout GI Palpation (GI): Soft to palpation Skin General skin exam: no rashes or lesions noted Lesions: no lesions Rashes: no rashes Neuro General: patient oriented x3 Extrem Other: Right ring finger: Mallet deformity right ring finger is no longer visible. No tenderness to palpation over the DIP. Full flexion and extension of the PIP and MCP. Able to make a full fist. No signs of infection. No open wounds. No nail bed involvement. Sensation intact. Capillary refill is brisk. Remainder of the digits right hand: Normal to inspection. No ecchymosis, erythema, or edema. Able to perform full finger flexion, extension, abduction, adduction, finger cross, okay sign, and thumbs up without deficit. Able to make a closed fist. Sensation intact. Capillary refill is brisk. Radial pulse intact. Assessment & Plan Assessment & Plan (1) Mallet deformity of right ring finger: Code(s): M20.011 - Mallet finger of right finger(s) Plan Mr. Goodman is an 83-year-old male who presents in the office today for a follow up of a right ring finger mallet deformity, which occurred on 01/05/2023 status post jamming his finger on the lawnmower. The patient was last seen in the office by me on 02/08/2023 where he was instructed to continue to wear the right ring finger splint. While in the office the patient confirms he continues to wear the splint on is right ring finger with no pain. The patient has been splinted for 6 weeks and has no mallet finger deformity today in the office. He may discontinue the use of the splint at this time. We discussed the role of occupational therapy, however he is able to reach finger tips to palm therefore we have deferred at this time. 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 Follow up will be PRN, or sooner if needed. Patient Instructions: Scribed for Audrey Noel PA-C by January Narayan medical record consultant, on 03/01/2023 at 9:01 am, EST. Coding Level of Care Code Est Pt Level 3 (50504) Diagnoses Mallet deformity of right ring finger M20.011
[2023-03-01 09:03] VITALS: BMI 27.3
== END 2023-03-01 09:25 | disposition home or self-care (01) ==
PROVIDERS: PCP Internal Medicine; Visit Provider Physician Assistant
DX: M20.011 Mallet finger of right finger(s) (principal)
CPT/HCPCS: 99213

== ENCOUNTER → 2023-03-01 08:58 | Outpatient (BNVA) | payer MEDICARE, SELFPAY | PROVIDERS: PCP Internal Medicine; Visit Provider Physician Assistant | DX: M20.011 Mallet finger of right finger(s) (principal) | CPT/HCPCS: 99212 ==

== ENCOUNTER 2023-04-02 13:34 | Outpatient (RCR) | payer MEDICARE, SELFPAY ==
--- NOTE | 2023-04-04 11:29 | MHC.OT.OEV ---
[address] [phone] F: [phone] Occupational Therapy Evaluation Patient Name: Anthony Goodman Sr Diagnosis: (R) Mallet Finger of the 4th digit Date of Onset: 01/05/23 Date of Surgery: Attending Provider: Panfilo Chester Prescribed Treatment: MD Follow Up Appointment: History of Current Condition: Patient is an 83 year old male with Mallet finger of the (R) 4th digit due to mechanical injury on 01/05/2023. Significant Medical History: History of blood transfusion Severe sepsis Gallstone pancreatitis GARTH (acute kidney injury) PVD (peripheral vascular disease) History of cancer COPD (chronic obstructive pulmonary disease) GERD (gastroesophageal reflux disease) Hyperlipidemia Diabetes mellitus HTN (hypertension) Paroxysmal atrial fibrillation CAD (coronary artery disease) Precautions/Contraindications: hx of cancer Patient Goals: To main goal to play musical instruments Hand Dominance: Right Observations: QuickDASH Score: Prior Level of Function and Occupation Self Care, Employment, Leisure: (I)ADLs/IADLs plays instruments Living Situation, Family and/or Social Support: Lives with his in a 2 level home. He will mow the lawn and and snow plough. His will complete the cooking and cleaning of the home. 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 (I)ADLs min (A) IADLs Sleep: Driving: (I) Vision: Balance: Pain Assessment Pain Score: 0 Pain Scale Used: Numeric (0 - 10) Pain Location and Description: 0 Aggravating Factors: none Alleviating Factors: none Skin and Soft Tissue Assessment Skin and Soft Tissue: Other Comments: Skin WFL Nerve assessment Ulnar Nerve: WNL Median Nerve: WNL Radial Nerve: WNL Comments: Sensory Assessment Temperature: WNL Light Touch: WNL Proprioception: WNL Vibration: Comments: Edema Assessment Upper Extremity: WNL Lower Extremity: Comments: Dexterity Assessment Dexterity: Left Impaired Comments: Functional Dexterity Test (R) 25.15seconds (L) 30.85 seconds Special Tests Comments: AROM(PROM) Strength Cervical Cervical Flexion: Cervical Extension: Cervical Lateral Flexion: Cervical Rotation: Comments: Shoulder Flexion: WFL Extension: WFL Abduction: WFL Internal Rotation: WFL External Rotation: WFL Comments: Flexion: WFL Extension:WFL Abduction: Internal Rotation: External Rotation: WFL Comments: Elbow Flexion: WFL Extension: WFL Pronation: Supination: Comments: Flexion: WFL Extension: WFL Pronation: Supination: Comments: Wrist Flexion: WFL Extension: WFL Ulnar Deviation: Radial Deviation: Comments: Flexion: WFL Extension: WFL Ulnar Deviation: Radial Deviation: Comments: Thumb Thumb CMC Flexion: Thumb MCP Flexion: Thumb IP Flexion: Radial Abduction: Palmar Abduction: [place] (Kapandji 0-10): Comments: Digits Index MCP: WFL PIP: DIP: Long MCP: WFL PIP: DIP: Ring MCP: WFL PIP: DIP: no active extension; 20* extension, 53* flexion (R) Small MCP: PIP: DIP: WFL Comments: Gross Grasp: (R)65lbs., (L)49lbs. Lateral Pinch: 4th digit 5lbs. Two-Point Pinch: Three-Jaw Jerry: Comments: Patient Education Primary Language: Setswana Programming Coordinator Required: No Current Knowledge: Teaching Method: Education Needs Identified on Evaluation: How did patient/family demonstrate learning? Barriers to Learning: Readiness for Learning: Who was educated? Comments: Plan of Care Assessment: Patient is an 83 year old male who was referred by STEFF Vaughn for Mallet Finger of the 4th digit. 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 He reports he lives with and is retired, (I) with ADLs/IADLs. 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 He was seen on 03/01/2023 and his splint was removed after 6 weeks with no deformity present. He denies numbness/tingling and pain. Currently he has no active extension, with DIP at 20* extension, he has active flexion of 53*. Patient's main concern is that when he plays his clarinet he is unable to cover the jeffers properly. He states his finger will slide . Based on initial evaluation due to the lack of finger range of motion and present deformity it is recommended that patient receive skilled occupational therapy services in order to increase range of motion and achieve his goal of playing the Panoramic Powerinet. Thank you for your referral. 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 On 05/13 patient may begin OT treatment. Electronically Signed By: LESLEY Almaguer/Morena, CLT Reviewed/agree with student documentation: Therapist: Please sign and return to therapist, Thank you for your referral.
== END 2023-08-21 13:25 | disposition home or self-care (01) ==
LOC: HO.OT 13:34
PROVIDERS: PCP Internal Medicine; Visit Provider Physician Assistant
DX: M20.011 Mallet finger of right finger(s) (principal)
CPT/HCPCS: 97165; 97535

== ENCOUNTER 2023-05-09 07:33 | Outpatient (REF) | payer MEDICARE, SELFPAY ==
[2023-05-09 08:18] LABS: Alanine Aminotransferase 16 U/L (0-40); Albumin Level 4.1 g/dL (3.5-5.0); Alkaline Phosphatase 66 U/L (39-117); Aspartate Amino Transferase 19 U/L (5-37); Bilirubin Direct 0.3 mg/dL (0.0-0.5); Bilirubin Total 0.5 mg/dL (0.0-1.0); Cholesterol 99 mg/dL (<200); HDL Cholesterol 41 mg/dL (>40); LDL Cholesterol Calculated 45 mg/dL (<100); Triglycerides 69 mg/dL (<150)
[2023-05-09 09:00] LABS: Reflex LDLD? No
== END 2023-05-09 07:34 | disposition home or self-care (01) ==
LOC: HO.LAB 07:33
PROVIDERS: Visit Provider Internal Medicine
DX: E78.00 Pure hypercholesterolemia, unspecified (principal)
CPT/HCPCS: 36415; 80061; 80076

== ENCOUNTER 2023-05-14 10:10 | Outpatient (REF) | payer MEDICARE, SELFPAY ==
--- NOTE | ~2023-05-14 | XR_ITS ---
EXAMINATION: XR WRIST, RIGHT CLINICAL INFORMATION: Pain COMPARISON: Right hand and wrist 02/08/2023 TECHNIQUE: PA, lateral, and oblique views of the right wrist. Dedicated scaphoid view. FINDINGS: The bones are intact. No fracture or dislocation. Alignment is anatomic with neutral ulnar variance. There is mild bony demineralization. There is severe osteoarthritic change of the first carpometacarpal joint. There is mild degenerative change of the triscaphe joint. There is mild degenerative change of the first metacarpophalangeal joint. XR/XR wrist RT min 3V IMPRESSION: 1. No acute bony abnormality. 2. Severe osteoarthritic change of the first carpometacarpal joint.
== END 2023-05-14 10:11 | disposition home or self-care (01) ==
LOC: HO.XRAY 10:10
PROVIDERS: PCP Internal Medicine; Visit Provider Internal Medicine
DX: M25.531 Pain in right wrist (principal)
CPT/HCPCS: 73110

== ENCOUNTER 2023-06-05 13:17 | Outpatient (AMB) | payer MEDICARE, SELFPAY ==
--- NOTE | 2023-06-05 13:27 | HO.SPINEOV ---
Intake Intake Visit Reasons: spinal stenosis Intake Note: Mr. 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 HPI: This 83-year-old male he has having a typical presentation of unilateral neurogenic claudication with pain radiating down his left thigh when he walks or stand. The symptoms started 8 years ago and he underwent the following conservative treatments: Physical therapy, 2 epidural steroid injections and a mild procedure that provided no relief. He was seen by our pain management team and discharged despite an MRI showing severe spinal stenosis. In fact, the severe L4-5 spinal stenosis was already seen on MRI of 2014. He denies weakness or numbness. He states that the right side is unaffected. PMH: Partial lung resection 1991 for benign mass, type 2 diabetes well-controlled, AFib for which she takes Xarelto, COPD, hypercholesterolemia, hypertension and anemia. He had bypass surgery on 01/09 he had a left hip replacement in 2012 and cholecystectomy in 2020. He is followed by cardiology and pulmonary and has been stable. Medications: Metformin, Xarelto, lisinopril, atorvastatin, omeprazole Allergies: NKDA Social history: . Nonsmoker Physical Exam: Pleasant male. He is able to reproduce his symptoms after standing for short period of time in the office. He stands in a flexed position. No neurological deficits for motor sensation or reflexes. Radiological Studies: MRI done at [facility] shows severe L4-5 spinal stenosis. Impression/Plan: This patient is suffering from unilateral neurogenic claudication, affecting his left lower extremity due to severe L4-5 spinal stenosis. I offered him a left L4-5 lumbar decompression to relieve his spinal stenosis symptoms. He is scheduled for August 14. 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 He needs to stop Xarelto 3 days prior to surgery. Thank you for allowing me to participate in your patients care. total time spent was 50 minutes in counseling ,coordination of plan, personal review of imaging, surgical decision making and subsequent plan Artemio Martines MD, PhD Spine Fellowship Trained Neurosurgeon Director, [facility] Coding Level of Care Code New Pt Level 4 (60063) Diagnoses Lumbar stenosis with neurogenic claudication M48.062
== END 2023-06-05 14:22 | disposition home or self-care (01) ==
PROVIDERS: PCP Internal Medicine; Referring Provider Physical Medicine & Rehabilitation; Visit Provider Neurological Surgery
DX: M48.062 Spinal stenosis, lumbar region with neurogenic claudication (principal)
CPT/HCPCS: 99204

== ENCOUNTER → 2023-06-05 13:17 | Outpatient (BNVA) | payer MEDICARE, SELFPAY | PROVIDERS: PCP Internal Medicine; Visit Provider Neurological Surgery | DX: M48.062 Spinal stenosis, lumbar region with neurogenic claudication (principal) | CPT/HCPCS: 99202 ==

== ENCOUNTER 2023-06-19 10:55 | Outpatient (AMB) | payer MEDICARE, SELFPAY ==
[2023-06-19 11:12] VITALS: BMI 27.3
--- NOTE | 2023-06-19 11:12 | A.OFFVIS_ITS ---
Intake Vital Signs 06/19/23 11:12 Height 6 ft 1 in Weight 207 lb BMI 27.3 Intake Visit Reasons: New Prob - Right Thumb/DeQuervains Intake Note: Anthony 83 yr old right hand dominant female presents today for a new problem visit for his right thumb pain pain. States his pain radiates down to his wrist. Pain increases with gripping, pinching and grabbing movement. Patient has tried wearing a brace and helps at times. History of Mallet deformity of right ring finger. Faviola recent injury, locking of any finger, numbness or tingling. Allergies No Known Allergies Allergy (Verified 06/19/23 11:17) HPI New Prob - Right Thumb/DeQuervains 2 HPI Details Anthony is an 83 year old right hand dominant Diabetic man who presents with complaints of right radial sided wrist pain & pain at the base of his thumb, worse with pinching or gripping activities. 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 He says his pain has been present for ~3 months now. He denies any prior treatment options. He denies any numbness, tingling, or locking. He has a hx of a right ring finger mallet finger from an injury, DOI: 01/05/23. This was managed successfully with splinting by STEFF Ventura. He has a hx of CAD, PVD, and CPS. He has Diabetes, which he says is well- controlled. He is on Xarelto. [facility], [facility] Medical History History of blood transfusion Severe sepsis Gallstone pancreatitis GARTH (acute kidney injury) PVD (peripheral vascular disease) History of cancer COPD (chronic obstructive pulmonary disease) GERD (gastroesophageal reflux disease) Hyperlipidemia Diabetes mellitus HTN (hypertension) Paroxysmal atrial fibrillation CAD (coronary artery disease) Surgical History H/O excision of mass History of excision of lesion History of laparoscopic cholecystectomy History of arthroplasty of left hip History of lobectomy of lung H/O heart surgery Social History (Updated 06/19/23 @ 11:18 by ELKE Hendricks) Household Members: Spouse Housing: House Are you a primary patient care associate to a significant other at home: No Do you presently have visiting nurse or other home services: No Alcohol intake: former Patient Tobacco Use Status: Former Tobacco user Quit Date: 2004 Tobacco use type: Cigarette Cigarette Packs Per Day: 1 service: Yes 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 Review of Systems Const All systems reviewed & are unremarkable except as noted in HPI and below Physical Exam Vital Signs: BMI result Body Mass Index 27.3 Const General: cooperative, healthy appearing and no acute distress Orientation/consciousness: patient oriented x3 HEENT Head: Yes normocephalic and Yes atraumatic Eyes EOM: EOMs intact bilaterally Resp Effort & Inspection: normal respiratory effort and able to speak in complete sentences Cardio Jugular venous distension: no JVD Skin General skin exam: turgor normal Rashes: no rashes Neuro General: patient oriented x3 Extrem Other: Evaluation of Right Upper Extremity: The patient is alert, oriented, and in no acute distress Neuro: Median, Ulnar, Radial nerves motor and sensory intact and sensation is normal to the tips of all digits Vascular: Cap refill brisk ROM: He can make a fist and extend all his digits No locking or catching Skin: No lacerations or abrasions. General: No Ecchymosis. No Erythema or evidence of infection. Not particularly tender over the basal joint Tender over the 1st dorsal compartment Positive Yohan test on the right Negative Yohan test on the left Radiographs: 3 views of the right hand from 02/08/23 & right wrist from 05/14/23 were reviewed by me today in clinic. They show no fractures or dislocations. There is right basal joint osteoarthritis, with joint space narrowing, subchondral sclerosis, and osteophyte formation. Psych Appearance: grossly normal Affect: normal affect Attitude: cooperative Office Procedures Fracture Care Details: No fracture, injection Fracture Billing Code: Fracture Billing Code Assessment & Plan Assessment & Plan (1) De Quervain's tenosynovitis, right: Code(s): M65.4 - Radial styloid tenosynovitis [de Quervain] (2) Osteoarthritis of carpometacarpal joint of right thumb: Code(s): M18.11 - Unilateral primary osteoarthritis of first carpometacarpal joint, right hand (3) Chronic pain syndrome: Code(s): G89.4 - Chronic pain syndrome (4) Diabetes mellitus: Comment: NIDDM Code(s): E11.9 - Type 2 diabetes mellitus without complications Plan Assessment & Plan: 1. Rigjht De Quervian's tenosynovitis Positive Yohan test This is his primary complaint today 2. Right basal joint osteoarthritis Only minimally symptomatic I educated him about these conditions I discussed operative and non-operative treatment options I discussed activity modification, he should limit or avoid any heavy or repetitive pinching, gripping, or scissoring activities He was fitted for a thumb spica splint today to wear with daily activities Injection #1: The risks and benefits of a steroid injection including but not limited to risk of damage to blood vessels, nerves, tendons, infection, skin bleaching, failure to improve symptoms, increased pain, and possible need for further injections or other intervention were discussed with the patient and the patient wishes to proceed with the steroid injection. Once consent was obtained, I sterilely prepped the area over the 1st dorsal compartment of the Right thumb. I then injected the 1st dorsal compartment with a combination of 1 mL of dexamethasone (4mg/ml), and 1% lidocaine. The patient tolerated the procedure well with no complications and good resolution of their symptoms prior to leaving clinic. If the patient continues to have pain 6-8 weeks following this injection, they may call to schedule appointment to discuss alternative treatment options He will follow up prn 3. Right ring finger mallet deformity From an injury, DOI: 01/05/23 This was successfully managed by STEFF Ventura in office with splinting Scribed for Diana Norman MD by Hira Drummond, neuropsychology medical consultant, on 06/19/23 at 11:30 AM, EST. Coding Level of Care Code New Pt Level 3 (34352) Diagnoses De Quervain's tenosynovitis, right M65.4 Osteoarthritis of carpometacarpal joint of right thumb M18.11 Chronic pain syndrome G89.4 Diabetes mellitus E11.9 CPT Codes Fracture Care - Fracture Billing Code: Fracture Billing Code ([id number])
== END 2023-06-19 11:56 | disposition home or self-care (01) ==
PROVIDERS: PCP Internal Medicine; Visit Provider Orthopaedic Surgery
DX: M65.4 Radial styloid tenosynovitis [de Quervain] (principal); M18.11 Unilateral primary osteoarthritis of first carpometacarpal joint, right hand; G89.4 Chronic pain syndrome; E11.9 Type 2 diabetes mellitus without complications
CPT/HCPCS: 20550; 99213

== ENCOUNTER → 2023-06-19 10:55 | Outpatient (BNVA) | payer MEDICARE, SELFPAY | PROVIDERS: PCP Internal Medicine; Visit Provider Orthopaedic Surgery | DX: M65.4 Radial styloid tenosynovitis [de Quervain] (principal); M18.11 Unilateral primary osteoarthritis of first carpometacarpal joint, right hand; G89.4 Chronic pain syndrome | CPT/HCPCS: 20550; 99212; J1100 ==

== ENCOUNTER 2023-07-09 09:43 | Outpatient (AMB) | payer MEDICARE, SELFPAY ==
--- NOTE | 2023-07-09 10:15 | A.OFFVIS_ITS ---
Intake Vital Signs 07/09/23 10:18 Height 6 ft 1 in Weight 207 lb BMI 27.3 Intake Visit Reasons: OV - Right Thumb DeQuervains/Basal Joint OA Intake Note: Anthony 83 yr old right hand dominant male presents today for his follow up visit for his Right basal joint osteoarthritis s/p injection from 06/19/23. States injection did not help at all and feels like injection might have worsen his pain. States his pain has increase with gripping and grabbing motion. He continues to wear his brace. Allergies No Known Allergies Allergy (Verified 07/09/23 10:17) HPI OV - Right Thumb DeQuervains/Basal Joint OA HPI Details Anthony is an 83 year old right hand dominant Diabetic man who returns to discuss his right De Quervain's tenosynovitis. He was last seen and injected on 06/19/23, he says this did not help and he feels this made his pain worse. He continues to have pain particularly with pinching & gripping activities. His pain is more radial wrist pain as opposed to thumb pain. He says his pain has been present for ~3-4 months now. 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 He denies any numbness, tingling, or locking. He says that fortunately it does not bother him when he is playing his instruments. He has a hx of a right ring finger mallet finger from an injury, DOI: 01/05/23. This was managed successfully with splinting by STEFF Ventura. He has a hx of CAD, PVD, and CPS. He has Diabetes, which he says is well- controlled. He is on Xarelto. [facility] Medical History History of blood transfusion Severe sepsis Gallstone pancreatitis GARTH (acute kidney injury) PVD (peripheral vascular disease) History of cancer COPD (chronic obstructive pulmonary disease) GERD (gastroesophageal reflux disease) Hyperlipidemia Diabetes mellitus HTN (hypertension) Paroxysmal atrial fibrillation CAD (coronary artery disease) Surgical History H/O excision of mass History of excision of lesion History of laparoscopic cholecystectomy History of arthroplasty of left hip History of lobectomy of lung H/O heart surgery Social History Household Members: Spouse Housing: House Are you a primary manager managed care to a significant other at home: No Do you presently have visiting nurse or other home services: No Alcohol intake: former Patient Tobacco Use Status: Former Tobacco user Quit Date: 2004 Tobacco use type: Cigarette Cigarette Packs Per Day: 1 service: Yes 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 General: No Ecchymosis. No Erythema or evidence of infection. Not particularly tender over the basal joint Tender over the 1st dorsal compartment Positive Yohan test on the right Negative Yohan test on the left Radiographs: 3 views of the right hand from 02/08/23 & right wrist from 05/14/23 were reviewed by me today in clinic. They show no fractures or dislocations. There is right basal joint osteoarthritis, with joint space narrowing, subchondral sclerosis, and osteophyte formation. Assessment & Plan Assessment & Plan (1) De Quervain's tenosynovitis, right: Code(s): M65.4 - Radial styloid tenosynovitis [de Quervain] (2) Osteoarthritis of carpometacarpal joint of right thumb: Code(s): M18.11 - Unilateral primary osteoarthritis of first carpometacarpal joint, right hand (3) Chronic pain syndrome: Code(s): G89.4 - Chronic pain syndrome (4) Diabetes mellitus: Comment: NIDDM Code(s): E11.9 - Type 2 diabetes mellitus without complications Plan Assessment & Plan: 1. Rigjht De Quervian's tenosynovitis, S/P injection Date of injection: 06/19/23 Positive Yohan test This is his primary complaint today 2. Right basal joint osteoarthritis Only minimally symptomatic, and he does not feel like this area is what is bothering him. I educated him about these conditions I discussed operative and non-operative treatment options He continues to have pain following his injection, and I explained that this can take several weeks to improve. I explained it is too soon for a repeat injection, or to discuss surgery. I discussed activity modification, he should limit or avoid any heavy or repeti tive pinching, gripping, or scissoring activities He should continue to wear his Comfort cool brace with daily activities. He will follow up in 3-4 weeks to see how he is doing. If he continues to have pain we may discuss a repeat injection or surgical intervention 3. Right ring finger mallet deformity From an injury, DOI: 01/05/23 This was successfully managed by STEFF Ventura in office with splinting Scribed for Diana Norman MD by Hira Drummond, medical record clerk, on 07/09/23 at 10:30 AM, EST. Coding Level of Care Code Est Pt Level 3 (93389) Diagnoses De Quervain's tenosynovitis, right M65.4 Osteoarthritis of carpometacarpal joint of right thumb M18.11 Chronic pain syndrome G89.4 Diabetes mellitus E11.9
[2023-07-09 10:18] VITALS: BMI 27.3
== END 2023-07-09 10:45 | disposition home or self-care (01) ==
PROVIDERS: PCP Internal Medicine; Visit Provider Orthopaedic Surgery
DX: M65.4 Radial styloid tenosynovitis [de Quervain] (principal); M18.11 Unilateral primary osteoarthritis of first carpometacarpal joint, right hand; G89.4 Chronic pain syndrome; E11.9 Type 2 diabetes mellitus without complications
CPT/HCPCS: 99213

== ENCOUNTER → 2023-07-09 09:43 | Outpatient (BNVA) | payer MEDICARE, SELFPAY | PROVIDERS: PCP Internal Medicine; Visit Provider Orthopaedic Surgery | DX: M18.11 Unilateral primary osteoarthritis of first carpometacarpal joint, right hand (principal); M65.4 Radial styloid tenosynovitis [de Quervain]; E11.9 Type 2 diabetes mellitus without complications; G89.4 Chronic pain syndrome | CPT/HCPCS: 99212 ==

== ENCOUNTER 2023-07-19 15:22 | Outpatient (REF) | payer MEDICARE, SELFPAY ==
[2023-07-19 15:27] LABS: MANUAL DIFF FLAG NO
[2023-07-19 15:52] LABS: Basophils Percent Auto 0.5 % (0-2); Eosinophils Absolute Auto 0.3 X10*3/uL (0.0-0.4); Eosinophils Percent Auto 4.7 % (0-4); Hematocrit 32.5 % (42.0-52.0); Hemoglobin 10.5 g/dl (14.0-18.0); Imm Gran Abs Auto 0.01 X10*3/uL (0.00-0.03); Imm Gran Pct Auto 0.1 % (0.0-0.4); Lymphocytes Absolute Auto 1.6 X10*3/uL (1.2-4.9); Lymphocytes Percent Auto 22.4 % (20-40); Mean Corpuscular HGB Conc 32.3 g/dl (31.0-36.0); Mean Corpuscular Hemoglobin 28.5 pg (27.0-33.0); Mean Corpuscular Volume 88.1 fL (80.0-98.0); Mean Platelet Volume 10.4 fL (9.4-12.4); Monocytes Absolute Auto 0.7 X10*3/uL (0.1-1.2); Monocytes Percent Auto 9.2 % (2-11); Neutrophils Absolute Auto 4.6 x10*3/uL (2.0-8.3); Neutrophils Percent Auto 63.1 % (45-73); Platelet Count 308 X10*3/uL (160-400); Red Blood Count 3.69 X10*6/uL (4.60-5.80); Red Cell Distribution Width 14.9 % (11.0-16.0); White Blood Count 7.3 X10*3/uL (4.8-10.8)
[2023-07-19 16:03] LABS: Alanine Aminotransferase 15 U/L (0-40); Albumin Level 4.3 g/dL (3.5-5.0); Alkaline Phosphatase 65 U/L (39-117); Anion Gap 15 (12-20); Aspartate Amino Transferase 17 U/L (5-37); Bilirubin Total 0.4 mg/dL (0.0-1.0); Blood Urea Nitrogen 26 mg/dL (9-16); Calcium 9.6 mg/dL (8.4-10.2); Carbon Dioxide 24 mmol/L (22-29); Chloride 106 mmol/L (96-108); Estimated Glomerular Filt Rate 44; Glucose Fasting 133 mg/dL (60-99); Potassium 5.2 mmol/L (3.3-5.1); Sodium 140 mmol/L (135-145); Total Protein 7.3 g/dL (6.5-8.0)
[2023-07-19 16:22] LABS: Estimated Average Glucose 126 mg/dL
== END 2023-07-19 15:23 | disposition home or self-care (01) ==
LOC: HO.LNP 15:22
PROVIDERS: Visit Provider Internal Medicine
DX: Z01.818 Encounter for other preprocedural examination (principal)
CPT/HCPCS: 80053; 83036; 85025

== ENCOUNTER 2023-07-31 08:16 | Outpatient (REF) | payer MEDICARE, SELFPAY ==
--- NOTE | ~2023-07-31 | XR_ITS ---
EXAMINATION: XR CHEST 2 VIEW CLINICAL INFORMATION: Cough, fatigue COMPARISON: 11/14/2022 TECHNIQUE: PA and lateral views of the chest obtained. FINDINGS: There is been no significant change since 11/14/2022, including postoperative changes in the right hemithorax, sternotomy wires and left atrial appendage clip. Chronically increased bronchovascular markings, and pleural parenchymal scarring at the right lung base are unchanged, as is a scar in the left mid to upper lung zone. XR/XR chest 2V IMPRESSION: No acute disease or significant interval change since 11/14/2022.
== END 2023-07-31 08:17 | disposition home or self-care (01) ==
LOC: HO.XRAY 08:16
PROVIDERS: PCP Internal Medicine; Visit Provider Internal Medicine
DX: R05.9 Cough, unspecified (principal); R53.83 Other fatigue
CPT/HCPCS: 71046

== ENCOUNTER 2023-08-06 13:14 | Outpatient (AMB) | payer MEDICARE, SELFPAY ==
[2023-08-06 13:26] VITALS: BMI 27.3
--- NOTE | 2023-08-06 13:26 | MHC.OFFVIS ---
Vital Signs 08/06/23 13:26 Height 6 ft 1 in Weight 207 lb BMI 27.3 Intake Visit Reasons: OV - Right thumb Dequervains/BasalJoint OA Intake Note: Anthony 83 yr old male presents today for his follow up visit for his Right De Quervian's tenosynovitis, S/P injection 06/19/23. States injection has not helped and is here to discuss repeat of injection vs surgical intervention. Last A1C was taken 07/19/23. A1C= 6. Allergies No Known Allergies Allergy (Verified 08/06/23 13:28) HPI HPI OV - Right thumb Dequervains/BasalJoint OA: Details: Anthony is an 83 year old right hand dominant Diabetic man who returns to discuss his right De Quervain's tenosynovitis & BJA. He was last seen and injected on 06/19/23. He says he continues to have radial-sided wrist pain, particularly with pinching & gripping activities. He denies any pain at the base of his thumb. He says his pain has been present for ~5 months now. 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 He denies any numbness, tingling, or locking. He says that fortunately the pain does not bother him when he is playing his instruments. He says he is having spine surgery on 08/15/23 to treat his leg pain. He has a hx of a right ring finger mallet finger from an injury, DOI: 01/05/23. This was managed successfully with splinting by STEFF Ventura. He has a hx of CAD, PVD, and CPS. He has Diabetes, which he says is well-controlled. He is on Xarelto. [facility] Medical History (Updated 08/01/23 @ 13:33 by Tomeka Arechiga RN) Arthritis Hiatal hernia COVID-19 On anticoagulant therapy History of blood transfusion Severe sepsis Gallstone pancreatitis GARTH (acute kidney injury) PVD (peripheral vascular disease) History of cancer COPD (chronic obstructive pulmonary disease) GERD (gastroesophageal reflux disease) Hyperlipidemia Diabetes mellitus HTN (hypertension) Paroxysmal atrial fibrillation CAD (coronary artery disease) Surgical History (Updated 08/01/23 @ 13:33 by Tomeka Arechiga RN) H/O colonoscopy H/O excision of mass History of excision of lesion History of laparoscopic cholecystectomy History of arthroplasty of left hip History of lobectomy of lung H/O heart surgery Social History Household Members: Spouse Housing: House Are you a primary child care education coordinator to a significant other at home: No Do you presently have visiting nurse or other home services: No Alcohol intake: former Patient Tobacco Use Status: Former Tobacco user Quit Date: 2004 Tobacco use type: Cigarette Cigarette Packs Per Day: 1 service: Yes 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 Physical Exam Vital Signs: BMI result Body Mass Index 27.3 Extrem Other: Evaluation of Right Upper Extremity: The patient is alert, oriented, and in no acute distress Neuro: Median, Ulnar, Radial nerves motor and sensory intact and sensation is normal to the tips of all digits Vascular: Cap refill brisk ROM: He can make a fist and extend all his digits No locking or catching Not particularly tender over the basal joint Tender over the 1st dorsal compartment Positive Yohan test on the right Negative Yohan test on the left Radiographs: 3 views of the right hand from 02/08/23 & right wrist from 05/14/23 were reviewed by me today in clinic. They show no fractures or dislocations. There is right basal joint osteoarthritis, with joint space narrowing, subchondral sclerosis, and osteophyte formation. Assessment & Plan Assessment & Plan (1) De Quervain's tenosynovitis, right: Code(s): M65.4 - Radial styloid tenosynovitis [de Quervain] Category: Medical (2) Osteoarthritis of carpometacarpal joint of right thumb: Code(s): M18.11 - Unilateral primary osteoarthritis of first carpometacarpal joint, right hand Category: Medical (3) Chronic pain syndrome: Code(s): G89.4 - Chronic pain syndrome Category: Medical (4) Diabetes mellitus: Comment: NIDDM Code(s): E11.9 - Type 2 diabetes mellitus without complications Category: Medical Plan Assessment & Plan: 1. Rigjht De Quervian's tenosynovitis, S/P injection Date of injection: 06/19/23 Positive Yohan test This is his primary complaint today I educated him about this condition He found no relief from his previous injection I discussed operative and non-operative treatment options The patient would like to proceed with surgery The risks and benefits of operative treatment were discussed with the patient and the patient wishes to proceed with surgery. These risks include, but are not limited to risk of damage to blood vessels, nerves, tendons, infection, recurrence, incomplete relief of preoperative symptoms, persistent pain, possible need for further surgery and the risks associated with regional blocks and anesthesia. The plan is to take the patient to the operating room sometime in the next few weeks for the following procedures: 1. Right 1st dorsal compartment release, under local All of the preoperative paperwork including the consent was reviewed today. All the patient's questions were answered. The patient understands that they will be contacted by our project controls scheduler soon to schedule this procedure He denies asthma, lung, kidney issues He is a Diabetic, his most recent HgA1c was 6.0% on 07/19/23 He has CAD & PVD, and is on Xarelto. He has chronic pain syndrome 2. Right basal joint osteoarthritis Only minimally symptomatic, and he does not feel like this area is what is bothering him. I educated him about this condition We will continue to manage this conservatively I discussed activity modification, he should limit or avoid any heavy or repetitive pinching, gripping, or scissoring activities He should continue to wear his Comfort cool brace with daily activities. 3. Right ring finger mallet deformity From an injury, DOI: 01/05/23 This was successfully managed by STEFF Ventura in office with splinting Scribed for Diana Norman MD by Hira Drummond, medical staff specialist, on 08/06/23 at 1:35 PM, EST. Coding Level of Care Code Est Pt Level 4 (81957) Diagnoses De Quervain's tenosynovitis, right M65.4 Osteoarthritis of carpometacarpal joint of right thumb M18.11 Chronic pain syndrome G89.4 Diabetes mellitus E11.9
== END 2023-08-06 13:50 | disposition home or self-care (01) ==
PROVIDERS: PCP Internal Medicine; Visit Provider Orthopaedic Surgery
DX: M65.4 Radial styloid tenosynovitis [de Quervain] (principal); M18.11 Unilateral primary osteoarthritis of first carpometacarpal joint, right hand; G89.4 Chronic pain syndrome; E11.9 Type 2 diabetes mellitus without complications
CPT/HCPCS: 99214

== ENCOUNTER → 2023-08-06 13:14 | Outpatient (BNVA) | payer MEDICARE, SELFPAY | PROVIDERS: PCP Internal Medicine; Visit Provider Orthopaedic Surgery | DX: M65.4 Radial styloid tenosynovitis [de Quervain] (principal); M18.11 Unilateral primary osteoarthritis of first carpometacarpal joint, right hand; G89.4 Chronic pain syndrome; E11.9 Type 2 diabetes mellitus without complications | CPT/HCPCS: 99212 ==

== ENCOUNTER 2023-08-13 07:27 | Outpatient (REF) | payer MEDICARE, SELFPAY ==
--- NOTE | ~2023-08-13 | CT_ITS ---
EXAMINATION: CT CHEST WITHOUT CONTRAST CLINICAL INFORMATION: History of right upper lung cancer COMPARISON: 08/28/2022 TECHNIQUE: Multidetector volumetric CT imaging of the chest was done. Axial MIP volume rendering provided. Sagittal and coronal reformatted images were obtained. This CT examination was performed using dose optimization techniques as appropriate, variously including the following: *Automated exposure control *Adjustment of mA and/or kV according to patient size (this includes techniques or standardized protocols for targeted exams where dose is matched to indication/reason for exam; i.e. extremities or head) *Use of iterative reconstruction technique DLP: 182 mGy-cm FINDINGS: FIELD TECHNICAL SPECIALIST: Patient is status post median sternotomy LUNGS: There is new since previous examination left lower lobe airspace disease measured approximately 3.0 x 2.1 cm and there is new nodule in the medial aspect of the left lower lobe measured 0.9 cm. There is stable left upper lobe ill-defined scarring. Right lung is revealed subpleural 0.7 cm nodule.. MEDIASTINUM: The mediastinum is normal. CORONARY ARTERY CALCIFICATION: Patient is status post CABG PLEURA: There is no pleural effusion. No pleural mass or thickening. AXILLA: No lymphadenopathy. UPPER ABDOMEN: Unremarkable. OSSEOUS STRUCTURES: Patient is status post median sternotomy CT/CT chest wo IV con IMPRESSION: New since previous examination left lower lobe airspace disease and new left lower lobe nodule. Fleischner guidelines were followed.
== END 2023-08-13 07:28 | disposition home or self-care (01) ==
LOC: HO.CT 07:27
PROVIDERS: PCP Internal Medicine; Visit Provider Nurse Practitioner Family
DX: Z85.118 Personal history of other malignant neoplasm of bronchus and lung (principal)
CPT/HCPCS: 71250

== ENCOUNTER 2023-08-15 06:54 | Day surgery (SDC) | payer MEDICARE, SELFPAY ==
[2023-08-01 13:39] VITALS: BP 159/72; PULSE 60; RESP 18; O2SAT 96; BMI 26.9
[2023-08-15] VITALS (7 sets, daily range): BP systolic 145–180; BP diastolic 47–61; PULSE 42–69; RESP 12–20; TEMP 36.5–36.6; O2SAT 96–100
--- NOTE | ~2023-08-15 | FL_ITS ---
EXAMINATION: XR FLUOROSCOPY WITH IMAGES CLINICAL INFORMATION: L4-L5 lumbar decompression. COMPARISON: None available. TECHNIQUE: Fluoroscopy Supervised By: Dr. Brian Martines. Fluoroscopy Time: 0.1 minute. Cumulative Dose: 2.86 mGy. DAP: 0.598 Gycm2. Images: 1. FINDINGS: Intraoperative fluoroscopy and spot films were performed during a procedure in the OR. A probe is seen at the L4-L5 level. Please see Dr. Brian Martines's report for complete details. FL/FL guidance in OR IMPRESSION: Intraoperative fluoroscopy and spot films were obtained. Please see Dr. Brian Martines's report for complete details.
[2023-08-15] MEDS: methocarbamoL 750 MG TABLET PO (07:00)
[2023-08-15] MEDS: Gabapentin 300 MG CAPSULE PO (07:00)
--- NOTE | 2023-08-15 07:02 | MHC.SHP ---
Pre-Procedural Eval Section A - 24 Hr Update-Section A only Date of Service: 08/15/23 The patient is an INPATIENT: No Changes since office visit: No Cold of Flu in the past 2 weeks, No New Medical Problems, No Changes in Medication and No Patient answered all questions The patient has been examined within 24 hours of the surgical procedure. The History & Physical has been completed within 30 days and I have reviewed it.: No Section B - Complete if H&P > 30 days Chief Complaint: Spinal stenosis, lumbar region with neurogenic Allergies: Allergies Allergy/AdvReac Type Severity Reaction Status Date / Time No Known Allergies Allergy Verified 08/06/23 13:28 Review of Systems Sugical H&P ROS: Negative: Constitution, Cardiovascular, Respiratory, Neurological, Psychiatric, Hem-Onc, Allergic/Immunologic, Gastrointestinal, Genitourinary, Musculoskeletal, Integumentary, Endocrine and Eyes/Ears/Nose/Throat Exam Surgical H&P Exam: Not Evaluated: HEENT, Not Evaluated: Heart, Not Evaluated: Lungs, Not Evaluated: Extremities, Not Evaluated: Abdomen, Not Evaluated: Skin and Not Evaluated: Neurological Plan Diagnosis/Plan: Unchanged left L4-5 decompression Time Spent With Patient Time: Total time managing care of this patient today _4___ minutes.
[2023-08-15 07:14] LABS: Glucose, Whole Blood 100 mg/dL (60-115)
[2023-08-15] MEDS: Lactated Ringers 1,000 ML 50 ML IVCONT (07:19)
--- NOTE | 2023-08-15 07:33 | P.DS_ITS ---
DS: Providers Provider Date of Service: 08/15/23 Date of discharge: 08/15/23 Primary care physician: Jordan Gabriel MD Admitting clinician: Artemio Martines DS: Diagnosis Discharge Diagnosis (1) Lumbar stenosis with neurogenic claudication: Status: Acute DS: Summary Time Attestation Discharge Coordination Time (in mins): 4 Quality: Safe Use of Opioids Does Pt have an Active Cancer Diagnosis on the Problem List?: No Quality: Stroke Does the patient have a stroke diagnosis?: No Physical Exam Vital Signs: Vital Signs: Last Vital Signs Temp 97.8 F 08/15/23 07:01 Pulse 69 08/15/23 07:01 Resp 20 08/15/23 07:01 BP 172/59 H 08/15/23 07:01 Pulse Ox 96 08/15/23 07:01 O2 Del Method Room Air 08/15/23 07:01 BMI result Body Mass Index 26.9 DS: Data Data Completed and Pending Completed studies during hospitalization [Text1]: Procedures Resection of Gallbladder, Percutaneous Endoscopic Approach (08/14/20) Labs on day of discharge: Laboratory Results - last 24 hr 08/15/23 07:09 POC Glucose 100 Discharge Plan Discharge Patient Disposition: Home, Self-Care Referrals: Jordan Gabriel MD [Primary Care Provider] - 1 Week Discharge Medications: New oxycodone 5 mg tablet 5 mg PO Q4H PRN (Reason: pain) Qty: 20 0RF Rx Instructions: Partial Fill upon patient request. docusate sodium [Colace] 100 mg capsule 100 mg PO BID Qty: 20 0RF Continued metformin 500 mg tablet 500 mg PO BID cyanocobalamin (vitamin B-12) [Vitamin B-12] 1,000 mcg Tablet 1,000 mcg PO DAILY cholecalciferol (vitamin D3) [Vitamin D3] 50 mcg (2,000 unit) Tablet 50 mcg PO DAILY atorvastatin 80 mg tablet 80 mg PO BEDTIME omeprazole 20 mg tablet,delayed release (DR/EC) 20 mg PO BEDTIME ferrous sulfate [Feosol] 325 mg (65 mg iron) tablet 325 mg PO DAILY multivitamin Tablet 1 tab PO DAILY lisinopril 20 mg tablet 20 mg PO BEDTIME albuterol sulfate [ProAir HFA] 90 mcg/actuation HFA aerosol inhaler 90 mcg inhalation DAILY PRN (Reason: Wheezing) Held Xarelto 20 mg tablet 20 mg PO QPM Qty: 30 12RF Hold Instructions: Resume on 08/18/23. You may resume Xarelto 3 days after surgery Discharge Orders: Discharge Order (Routine); Ordered 08/15/23 Ordered By: Michael Mejia Diet: Advance to usual diet Activity on Discharge: As tolerated Activity Restrictions/Additional Instructions: After your spinal surgery we ask you to observe the following restrictions/guidelines: Activity: It is normal to feel some discomfort as you increase your activity, but that will improve with time. We ask you avoid heavy lifting or acitivities that cause pain. As a general rule, 8lbs is a safe limit for lifting right after surgery. Walk as much as you feel comfortable but not to exhaustion. You will feel extra tired the first few days after surgery. Stay well hydrated. It is OK to walk up and down stairs You may return to driving when you are off narcotics (such as vicodin, oxyc odone, dilaudid, etc), and you are back to normal functional capacity. If you have any concerns please check with office before driving. Return to work is specific to each patient and each surgery, so please speak with your doctor/PA at first follow up. Please bring paperwork such as FMLA at that time if you need it filled out. Medications: You may resume Xarelto 3 days after surgery For optimum pain control, it is best to start with a combination of 500 mg of Tylenol every 4 hours with 600 mg of Motrin every 8 hours, and use narcotics as needed in between for breakthrough pain. We will give you a short supply of narcotics after surgery (usually one weeks worth). If you need more please call the office but do not use more than prescribed. You will need to give our office 48 hours notice if you need narcotics refilled and we do not fill narcotics on weekends or evenings. If you are on a narcotic, it is a good idea to take a stool softener such as colace or senna to avoid constipation If you take blood thinner such as aspirin, Plavix, Coumadin, Effient, Eliquis etc for conditions such as Afib, DVT, Pulmonary embolus, coronary disease, stents etc please speak with your surgeon about specific details as to when you can resume these medications. You can resume NSAIDs on post op day 1 (eg: Motrin, Naproxen, etc). Follow up: Please call the office, , after surgery to arrange a 3 week follow up for wound check. Wound Care: You may remove your dressing on the first day after surgery. ?You may ?leave open to air. Please do not remove the steri strips underneath. they will fall off on their own in one week. IT IS NORMAL FOR THE WOUND TO OOZE OR BE BLOODY FOR A FEW DAYS AFTER SURGERY. ?IF THIS HAPPENS JUST PLACE NEW DRESSING OVER IT TO AVOID STAINING CLOTHES. You may shower on post op day # 1 We ask that you do not let the water soak the wound. If it does get wet, just towel dry lightly. Please do not scrub your incision or place any type of chemical/ointment on the wound. No tub baths, pools or jacuzzis for one month. If you have any leaking or redness from your wound, or fevers, please call office Print Language: [place]
--- NOTE | 2023-08-15 07:45 | P.CONAN_ITS ---
Documented by User: Meg Bolden NP 08/01/23 14:15 HPI - Anesthesia Eval Consult details Narrative: 83yo M for Left L4-5 Lumbar Decompression Covid week of 07/24/23. Tx'd with paxlovid. At PAT, resolving. Rare cough with rare clear mucous No CP/SOB with walking counselor supervisor Cardiac cleared. Follows [facility] cardiology for CAD s/p CABG, PAF, diastolic dysfunction. Medically cleared Afib. Xarelto DM. No POC at home s/p RUL lobectomy 1991 COPD. Stable PMFSH Active Problems Active Problems: All Active Problems De Quervain's tenosynovitis, right (Acute) Osteoarthritis of carpometacarpal joint of right thumb (Acute) Lumbar stenosis with neurogenic claudication (Acute) Diastolic dysfunction (Acute) Mallet deformity of right ring finger (Acute) Spinal stenosis (Acute) History of total left hip arthroplasty (Acute) Chronic pain syndrome (Acute) Spinal stenosis, lumbar (Acute) Bilateral leg cramps (Acute) Anemia (Chronic) PVD (peripheral vascular disease) (Acute) Paroxysmal atrial fibrillation (Acute) CAD (coronary artery disease) (Acute) Hyperlipidemia (Acute) Diabetes mellitus (Acute) HTN (hypertension) (Acute) Past Medical History Medical History (Updated 08/01/23 @ 13:33 by Tomeka Arechiga RN) Arthritis Hiatal hernia COVID-19 On anticoagulant therapy History of blood transfusion Severe sepsis Gallstone pancreatitis GARTH (acute kidney injury) PVD (peripheral vascular disease) History of cancer COPD (chronic obstructive pulmonary disease) GERD (gastroesophageal reflux disease) Hyperlipidemia Diabetes mellitus HTN (hypertension) Paroxysmal atrial fibrillation CAD (coronary artery disease) Family History Family history of problems with anesthesia: No Surgical History Surgical History (Updated 08/01/23 @ 13:33 by Tomeka Arechiga, RN) H/O colonoscopy H/O excision of mass History of excision of lesion History of laparoscopic cholecystectomy History of arthroplasty of left hip History of lobectomy of lung H/O heart surgery History of Problems with Anesthesia: No Social History Social History Household Members: Spouse Housing: House Are you a primary child care center assistant director to a significant other at home: No Do you presently have visiting nurse or other home services: No Alcohol intake: former Patient Tobacco Use Status: Former Tobacco user Quit Date: 2004 Tobacco use type: Cigarette Cigarette Packs Per Day: 1 Use of substances other than those prescribed or required for medical reasons: No Have you been hit, kicked, punched, or otherwise hurt by someone within the past year? 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 Meds Allergies Allergy/AdvReac Type Severity Reaction Status Date / Time No Known Allergies Allergy Verified 08/06/23 13:28 Home Medications ?Medication ?Instructions ?Recorded ?Confirmed ?Last Taken ?Type ferrous sulfate 325 mg (65 mg 325 mg PO DAILY 09/01/20 08/01/23 11/28/20 History iron) tablet (Feosol) multivitamin 1 tab PO DAILY 09/01/20 08/01/23 Unknown History omeprazole 20 mg tablet,delayed 20 mg PO BEDTIME 09/01/20 08/01/23 Unknown History release metformin 500 mg tablet 500 mg PO BID 09/27/20 08/01/23 Unknown History lisinopril 20 mg tablet 20 mg PO BEDTIME 10/10/21 08/01/23 Unknown History albuterol sulfate 90 mcg/actuation 90 mcg inhalation DAILY PRN 04/17/22 08/01/23 Unknown History aerosol inhaler (ProAir HFA) Wheezing atorvastatin 80 mg tablet 80 mg PO BEDTIME 08/01/23 08/01/23 Unknown History cholecalciferol (vitamin D3) 50 50 mcg PO DAILY 08/01/23 08/01/23 Unknown History mcg (2,000 unit) tablet (Vitamin D3) cyanocobalamin (vitamin B-12) 1,000 mcg PO DAILY 08/01/23 08/01/23 Unknown History 1,000 mcg tablet (Vitamin B-12) Exam Height,Weight and Vital Signs: Height 6 ft Weight 89.811 kg Last Vital Signs Pulse 60 08/01/23 13:39 Resp 18 08/01/23 13:39 BP 159/72 H 08/01/23 13:39 Pulse Ox 96 08/01/23 13:39 O2 Del Method Room Air 08/01/23 13:39 Pertinent Lab Results Pertinent Lab Results: Laboratory Tests 07/19/23 13:30 WBC 7.3 Hgb 10.5 L Hct 32.5 L Plt Count 308 Sodium 140 Potassium 5.2 H Chloride 106 Carbon Dioxide 24 BUN 26 H Creatinine 1.52 H Narrative Narrative: EKG 06/2023 afib with nml ventricular response probable septal infarct rsr' in V2 slight left precordial repol disburbance, consider ischemia NM cardiolite stress test 11/2022 Impression: 1. Myocardial perfusion imaging study shows normal myocardial perfusion. 2. Gated LVEF is > 70% during stress and rest. 3. Transient ischemic dilatation not present. ECHO 01/2023 Conclusions: - The left ventricular systolic function is normal. The calculated ejection fraction is 61% by biplane method. - Evidence suggests grade II (moderate) diastolic dysfunction. - Moderately increased right ventricular cavity size. - Moderate biatrial enlargement. - No obvious valvular pathology seen on this study. - There is mild dilatation of the sinuses of Valsalva measuring 4.36 cm and mild dilatation of the ascending aorta measuring 4.00 cm. Airway Mallampati Class: IV TM Dist: >3cm Neck ROM: Full Denture: Upper Partial: Lower Heart: Irreg Lungs: Dim RUL, otherwise CTA Assessment and Plan Assessment Anesthesia Assessment: Anesthesia Plan Discussed and PAT Visit Final Anesthetic Review Family History of Problems with Anesthesia: No History of Problems with Anesthesia: No Documented by User: Traci Slater DO 08/15/23 07:49 [facility] Past Medical History Medical History (Updated 08/01/23 @ 13:33 by Tomeka Arechiga RN) Arthritis Hiatal hernia COVID-19 On anticoagulant therapy History of blood transfusion Severe sepsis Gallstone pancreatitis GARTH (acute kidney injury) PVD (peripheral vascular disease) History of cancer COPD (chronic obstructive pulmonary disease) GERD (gastroesophageal reflux disease) Hyperlipidemia Diabetes mellitus HTN (hypertension) Paroxysmal atrial fibrillation CAD (coronary artery disease) Family History Family history of problems with anesthesia: No Surgical History Surgical History (Updated 05/09/24 @ 13:33 by Tomeka Arechiga RN) H/O colonoscopy H/O excision of mass History of excision of lesion History of laparoscopic cholecystectomy History of arthroplasty of left hip History of lobectomy of lung H/O heart surgery History of Problems with Anesthesia: No Social History Social History Household Members: Spouse Housing: House Are you a primary child care center assistant director to a significant other at home: No Do you presently have visiting nurse or other home services: No Alcohol intake: former Patient Tobacco Use Status: Former Tobacco user Quit Date: 2004 Tobacco use type: Cigarette Cigarette Packs Per Day: 1 Use of substances other than those prescribed or required for medical reasons: No Have you been hit, kicked, punched, or otherwise hurt by someone within the past year? 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 Meds Allergies Allergy/AdvReac Type Severity Reaction Status Date / Time No Known Allergies Allergy Verified 08/06/23 13:28 Home Medications ?Medication ?Instructions ?Recorded ?Confirmed ?Last Taken ?Type ferrous sulfate 325 mg (65 mg 325 mg PO DAILY 09/01/20 08/01/23 11/28/20 History iron) tablet (Feosol) multivitamin 1 tab PO DAILY 09/01/20 08/01/23 Unknown History omeprazole 20 mg tablet,delayed 20 mg PO BEDTIME 09/01/20 08/01/23 Unknown History release metformin 500 mg tablet 500 mg PO BID 09/27/20 08/01/23 Unknown History lisinopril 20 mg tablet 20 mg PO BEDTIME 10/10/21 08/01/23 Unknown History albuterol sulfate 90 mcg/actuation 90 mcg inhalation DAILY PRN 04/17/22 08/01/23 Unknown History aerosol inhaler (ProAir HFA) Wheezing atorvastatin 80 mg tablet 80 mg PO BEDTIME 08/01/23 08/01/23 Unknown History cholecalciferol (vitamin D3) 50 50 mcg PO DAILY 08/01/23 08/01/23 Unknown History mcg (2,000 unit) tablet (Vitamin D3) cyanocobalamin (vitamin B-12) 1,000 mcg PO DAILY 08/01/23 08/01/23 Unknown History 1,000 mcg tablet (Vitamin B-12) Exam Exam Date and Time: August 15, 2023 0745 Height,Weight and Vital Signs: Height 6 ft Weight 89.811 kg Last Vital Signs Pulse 60 08/01/23 13:39 Resp 18 08/01/23 13:39 BP 159/72 H 08/01/23 13:39 Pulse Ox 96 08/01/23 13:39 O2 Del Method Room Air 08/01/23 13:39 Height 6 ft Weight 89.811 kg Vital Signs Pulse Rate 60 08/01/23 13:39 Respiratory Rate 18 08/01/23 13:39 Blood Pressure 159/72 H 08/01/23 13:39 Pulse Oximetry 96 08/01/23 13:39 Oxygen Delivery Method Room Air 08/01/23 13:39 Temperature 97.8 F 08/15/23 07:01 Pulse Rate 69 08/15/23 07:01 Respiratory Rate 20 08/15/23 07:01 Blood Pressure 172/59 H 08/15/23 07:01 Pulse Oximetry 96 08/15/23 07:01 Oxygen Delivery Method Room Air 08/15/23 07:01 Airway Mallampati Class: III TM Dist: >3cm Neck ROM: Full Denture: Upper Partial: Lower Heart: S1S2 Lungs: Diminished RUL, otherwise CTAB Assessment and Plan Assessment Anesthesia Assessment: Anesthesia Plan Discussed and Chart Reviewed Final Anesthetic Review Family History of Problems with Anesthesia: No History of Problems with Anesthesia: No NPO: Yes ASA Class: III Final Preanesthetic Review: No Changes in Pt Med Stat, Meds/Allgs Chart Reviewed, Consent Obtained/Reviewed and Anes Risks/Benef Reviewed Patient Risk: Intermediate Procedure Risk: Intermediate Anesthetic Plan Anesthetic Plan: GA and Agree w/ Assess. and Plan Disposition: Standard PACU
--- NOTE | 2023-08-15 09:38 | P.OP_ITS ---
Operative Note Operative Note Date of Service: 08/15/23 Narrative: Preoperative Diagnosis: L4-5 spinal stenosis/lateral recess stenosis/neural foraminal stenosis Operation: Left L4-5 Laminotomy, Partial facetectomy and foraminotomy with use of microscope Consent Informed Consent was obtained for this operation. I have explained the nature, purpose and benefits of the operation. I have discussed the risks and benefit of the operation including possible complications or adverse events with patient/family. Alternative(s) were discussed with the patient with their relative benefits and risks as well as the consequences of not accepting the operation were included in obtaining consent. Surgeon: ROSETTE JONES MD, PHD Procedure Assisted By: Michael Berry Description of Procedure This patient is suffering from left unilateral neurogenic claudication. The patient was offered a L4-5 decompression. The procedure complications were explained. The patient was consented. The patient was brought to the operating room and endotracheally intubated. The patient was turned in prone position on the Ja frame. Prep and drape was done followed by timeout. The [facility] assistant provided access. A mid lumbar incision was made followed by release of the paravertebral muscle on the left side to expose the L4-5 lamina and facet joints. An intraoperative x-ray was obtained to confirm the correct level. The microscope was brought in. I took over the procedure. The high-speed drill was used to do a left L4-5 laminotomy until flavum ligament was reached. A #2 Kerrison was used to expand the laminotomy near flush to the pedicles and to include a partial facetectomy. The flavum ligament was opened and resected with a #3 Kerrison to decompress the underlying thecal sac. The flavum ligament was removed to decompress the lateral recess and the exiting L5 nerve root. A long nerve hook could be easily passed along the medial side of the pedicles as a sign of adequate decompression. The microscope was removed. Hemostasis was done. The [facility] assistant close the Incision in 2 layers. Steri-Strips were used to approximate incision. An OpSite with Tegaderm was used to cover the incision. All sponge needle counts were correct. Patient was extubated and transported in stable is to recovery room. Anesthesia: General Estimated Blood Loss (ml): 15 mL Complications: None Duration of Surgery: Under 45 Minutes Postoperative Plan: Discharge to home
== END 2023-08-15 11:30 | disposition home or self-care (01) ==
PROVIDERS: PCP Internal Medicine; Visit Provider Neurological Surgery
PROC: (CPT 63047; principal; 2023-08-15 09:10)
DX: M48.062 Spinal stenosis, lumbar region with neurogenic claudication (principal); E11.9 Type 2 diabetes mellitus without complications; I10 Essential (primary) hypertension; E78.5 Hyperlipidemia, unspecified; I48.0 Paroxysmal atrial fibrillation; D64.9 Anemia, unspecified; G89.4 Chronic pain syndrome; M48.00 Spinal stenosis, site unspecified; I25.10 Atherosclerotic heart disease of native coronary artery without angina pectoris
CPT/HCPCS: 63047; C1062; 82947; J0131; J0690; J1100; J2405; J2704; J3010

== ENCOUNTER → 2023-08-15 06:54 | Outpatient (BNV) | payer MEDICARE, SELFPAY | PROVIDERS: PCP Internal Medicine; Visit Provider Neurological Surgery | DX: M48.062 Spinal stenosis, lumbar region with neurogenic claudication (principal) | CPT/HCPCS: 63047; 99499 ==

== ENCOUNTER 2023-09-05 13:00 | Outpatient (AMB) | payer MEDICARE, SELFPAY ==
--- NOTE | 2023-09-05 13:02 | HO.SPINEOV ---
Intake Visit Reasons: 1st post op Intake Note: Mr. Goodman is here today for his 1st post op Affiliate Marketing Specialist Required: No Allergies No Known Allergies Allergy (Verified 08/06/23 13:28) Assessment & Plan Assessment & Plan (1) Lumbar stenosis with neurogenic claudication: Code(s): M48.062 - Spinal stenosis, lumbar region with neurogenic claudication Category: Medical Plan Mr Goodman is following up 3 weeks from his left L4-5 decompression. He is doing very well, his pain is completely gone. He is back to ambulating normally. 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 He has been back to driving now without any problems. His wound is healed beautifully. We discussed activity guidelines, restrictions and expectations after lumbar decompression. He has no restrictions after a few weeks so I told him he can come back and see us only if he is having issues would be happy to see him down the road. Thank you for this referral Michael Martiens MD, PhD [facility] Coding Level of Care Code Global (80235) Diagnoses Lumbar stenosis with neurogenic claudication M48.062
== END 2023-09-05 14:56 | disposition home or self-care (01) ==
PROVIDERS: PCP Internal Medicine; Visit Provider Physician Assistant
DX: M48.062 Spinal stenosis, lumbar region with neurogenic claudication (principal)
CPT/HCPCS: 99024

== ENCOUNTER → 2023-09-05 13:00 | Outpatient (BNVA) | payer MEDICARE, SELFPAY | PROVIDERS: PCP Internal Medicine; Visit Provider Physician Assistant | DX: Z09 Encounter for follow-up examination after completed treatment for conditions other than malignant neoplasm (principal); M48.062 Spinal stenosis, lumbar region with neurogenic claudication | CPT/HCPCS: 99212 ==

== ENCOUNTER 2023-09-12 09:49 | Outpatient (REF) | payer MEDICARE, SELFPAY ==
--- NOTE | ~2023-09-12 | FL_ITS ---
EXAMINATION: XR FLUOROSCOPY UPPER GI WITH AIR CLINICAL INFORMATION: Dysphagia COMPARISON: None TECHNIQUE: Fluoroscopic air contrast upper GI examination was performed utilizing standard techniques with thin and thick barium and effervescent granules. Numerous spot images were obtained. FINDINGS: An atrial appendage clip is noted. Median sternotomy wires are also present. Surgical clips are present in the left chest consistent with prior history of left lobectomy. Lateral cine images of the oropharynx and hypopharynx demonstrate normal swallow mechanism with normal epiglottic inversion and soft palate elevation. There is trace laryngeal penetration with thick barium. No tracheal penetration or subglottic aspiration identified. No nasopharyngeal reflux present. There is a midline diverticulum of the upper esophagus just below the cricopharyngeus suggestive of a Laimer's diverticulum. Mild cricopharyngeal achalasia is present. Dual and single contrast images of the esophagus demonstrate normal caliber and contour otherwise. Granular appearing mucosa is present, likely on the basis of erosive esophagitis. No evidence of mass, or large ulcerations identified. Esophageal peristalsis is mildly disorganized. A mild to moderately obstructing Schatzki's ring is present. A small type I hiatal hernia is present. No significant gastroesophageal reflux was seen during the course of the examination and on reflux views. Dual contrast and single contrast images of the stomach demonstrated a normal contour. The gastric rugal folds have a thickened appearance. There are multiple foci of contrast pooling in the fundus and body the stomach that may represents small superficial aphthous ulcers. No masses are seen. Contrast freely passed into the gastric antrum and duodenal bulb without delay. Single and air-contrast images of the duodenal bulb demonstrate no abnormality. The duodenal sweep has a normal appearance, course, and mucosal fold appearance. There is a third segment small diverticulum, and a small jejunal diverticulum. The imaged proximal jejunum has a normal fold pattern and caliber. FLUOROSCOPY TIME: 4 minutes 33 seconds Number of Spot Images: 12 Number of Cine: 15 DOSE AREA PRODUCT: 2893 uGy-m2 (microgray-meter squared) FL/FL upper GI w air IMPRESSION: 1. Trace laryngeal penetration with thick barium 2. 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 3. Mild cricopharyngeal achalasia is present. 4. A mild to moderately constricting Schatzki's ring is present. 5. Small type I hiatal hernia. 6. Thickened gastric rugal folds with multiple foci of contrast pooling in the fundus and body the stomach. These findings are suggestive of erosive gastritis. 7. Mild esophageal dysmotility. 8. Duodenal and jejunal diverticula. Recommend correlation with EGD. This procedure was performed by Jaydon El PA-C, and supervised by Dr. Wallace
== END 2023-09-12 09:50 | disposition home or self-care (01) ==
LOC: HO.XRAY 09:49
PROVIDERS: Visit Provider Internal Medicine
DX: R13.19 Other dysphagia (principal)
CPT/HCPCS: 74246

== ENCOUNTER → 2023-09-12 09:51 | Outpatient (BNV) | payer MEDICARE, SELFPAY | PROVIDERS: Visit Provider Physician Assistant Surgical | DX: R13.10 Dysphagia, unspecified (principal) | CPT/HCPCS: 74246 ==

== ENCOUNTER 2023-10-07 06:59 | Day surgery (SDC) | payer MEDICARE, SELFPAY ==
[2023-10-07 07:01] VITALS: BP 169/55; PULSE 68; RESP 18; TEMP 36.6; O2SAT 95
[2023-10-07 07:11] VITALS: BMI 27.3
--- NOTE | 2023-10-07 07:44 | MHC.SHP ---
Pre-Procedural Eval Section A - 24 Hr Update-Section A only Date of Service: 10/07/23 The patient is an INPATIENT: No Changes since office visit: No Cold of Flu in the past 2 weeks, No New Medical Problems, No Changes in Medication and No Patient answered all questions The patient has been examined within 24 hours of the surgical procedure. The History & Physical has been completed within 30 days and I have reviewed it.: Yes Section B - Complete if H&P > 30 days Chief Complaint: Radial styloid tenosynovitis [de Quervain] Allergies: Allergies Allergy/AdvReac Type Severity Reaction Status Date / Time No Known Allergies Allergy Verified 10/07/23 07:13 Exam Exam Comment: Right 1st dorsal compartment release Plan Diagnosis/Plan: Unchanged I have reviewed the history and physical and performed a pertinent physical examination on my patient. No changes have occurred unless specified. Time Spent With Patient Time: Total time managing care of this patient today ____ minutes.
--- NOTE | 2023-10-07 07:45 | P.OP_ITS ---
Operative Note Operative Note Date of Service: 10/07/23 Narrative: Operative Note Preop diagnosis: 1. Right DeQuervain's tenosynovitis Postop diagnosis: 1. Right DeQuervain's tenosynovitis Procedure: 1. Right 1st dorsal compartment release 2. Right abductor pollicis longus tenosynovectomy Surgeon: Diana Norman MD Anesthesia: local block using 1% lidocaine with epinephrine Findings: Thickened 1st dorsal compartment. Hypertrophic tenosynovium about the APL and EPB tendons EBL: Less than 5 mL Tourniquet time: None Specimens: None Complications: None Disposition: Brought to recovery room in stable condition Plan: Follow-up for 7-10 days for wound check and suture removal Indications: The patient is 83 years old, with right DeQuervain's tenosynovitis that has been unresponsive to nonoperative management. The risks and benefits of operative treatment including but not limited to risk of damage to blood vessels, nerves, tendons, infection, persistent pain, persistent symptoms, recurrence or possible need for additional surgery were discussed with the patient and the patient wishes to proceed with surgery. Procedure: Once consent was obtained a local block was performed in the preop area using a combination of 1% lidocaine with epinephrine. The patient was then brought back to the operating suite and placed on the operative table in supine position. A tourniquet was applied to the proximal aspect of the right upper e xtremity and the limb was prepped and draped in a standard surgical fashion. Once assured that we had a good block, a 1.5 cm longitudinal incision was made centered over the 1st dorsal compartment as it passed over the radial styloid of the right wrist. The incision was made through the skin to the subcutaneous tissues using a #15 blade. Careful dissection was made down to the level of the 1st dorsal compartment using tenotomy scissors, with care being taken to protect the nearby branches of the superficial radial nerve. Once the 1st dorsal compartment was exposed, A longitudinal incision was made in the 1st dorsal compartment 1st using a #15 blade, then using tenotomy scissors under direct visualization. The 1st dorsal compartment was noted to be thickened. He was also noted to have abundant hypertrophic tenosynovium about the APL and EPB tendons just proximal to the thickened area of the 1st dorsal compartment. I then performed a tenosynovectomy carefully excising this abundant hypertrophic tenosynovium using tenotomy and iris scissors. Following our release, we saw smooth gliding abductor pollicis longus and extensor pollicis brevis tendons. Once satisfied with our 1st dorsal compartment release the wound was copiously irrigated with normal saline and hemostasis was obtained with a brief period of local pressure. The subcutaneous layer was closed with some 4-0 Vicryl suture, and the skin edges were reapproximated with some 5.0 nylon suture material. A sterile dressing was applied. The patient appears to have tolerated the procedure well and with no compl ications. All digits were well vascularized at the conclusion of the case.
[2023-10-07 08:42] VITALS: BP 165/53; PULSE 58; RESP 16; O2SAT 96
== END 2023-10-07 08:43 | disposition home or self-care (01) ==
PROVIDERS: PCP Internal Medicine; Visit Provider Orthopaedic Surgery
PROC: (CPT 25116; principal; 2023-10-07 07:30)
DX: M65.4 Radial styloid tenosynovitis [de Quervain] (principal); G89.4 Chronic pain syndrome; M17.11 Unilateral primary osteoarthritis, right knee; I48.0 Paroxysmal atrial fibrillation; I10 Essential (primary) hypertension; E11.9 Type 2 diabetes mellitus without complications; J44.9 Chronic obstructive pulmonary disease, unspecified; I25.10 Atherosclerotic heart disease of native coronary artery without angina pectoris; Z87.891 Personal history of nicotine dependence; Z98.890 Other specified postprocedural states
CPT/HCPCS: 25116; 25115; 25000; J0171

== ENCOUNTER → 2023-10-07 06:59 | Outpatient (BNV) | payer MEDICARE, SELFPAY | PROVIDERS: PCP Internal Medicine; Visit Provider Orthopaedic Surgery | DX: M72.0 Palmar fascial fibromatosis [Dupuytren] (principal) | CPT/HCPCS: 25000 ==

== ENCOUNTER 2023-10-08 14:45 | Outpatient (REF) | payer MEDICARE, SELFPAY ==
--- NOTE | ~2023-10-08 | CT_ITS ---
EXAMINATION: CT CHEST WITH CONTRAST CLINICAL INFORMATION: Lung carcinoma. COMPARISON: 08/25/2022 and 08/13/2023. TECHNIQUE: Multidetector volumetric CT imaging of the chest was obtained after the administration of 65 mL of Omnipaque 350 intravenous contrast without immediate adverse reactions. Axial MIP volume rendering provided. Sagittal and coronal reformatted images were obtained. This CT examination was performed using dose optimization techniques as appropriate, variously including the following: *Automated exposure control *Adjustment of mA and/or kV according to patient size (this includes techniques or standardized protocols for targeted exams where dose is matched to indication/reason for exam; i.e. extremities or head) *Use of iterative reconstruction technique DLP: 144 mGy-cm FINDINGS: LUNGS AND PLEURA: Linear opacity from mucus along the posterior tracheal wall. Mild centrilobular and paraseptal emphysema. The bronchial garcia are diffusely, mildly thickened. Postoperative changes from right upper lobectomy and left upper lobe wedge resection. The irregular subpleural nodular opacity at the lateral right lower lobe seen on 08/13/2023 has nearly completely resolved; minimal residual groundglass attenuation is present, suggesting that the prior observation was from inflammatory or infectious change (image 101, series 5). Significant improvement in previously seen patchy airspace disease in the left lower lobe. A nodular focus that previously measured 0.8 x 1.1 cm in the medial left lower lobe has significantly diminished and has a more linear appearance; the residual opacity is approximately 0.4 x 0.7 cm. A residual opacity in the posteroinferior left lower lobe of 1.6 cm transverse dimension has developed a more linear appearance on the coronal and sagittal reformatted images. This is consistent with resolving infectious/inflammatory change. There are no new infiltrates. Chronic findings include several old scattered opacities of scarring and old clustered calcified nodules in the posterolateral left lower lobe and within the right lower lobe. CARDIOVASCULAR: Cardiac chambers are in the normal size range. No pericardial effusion. Left atrial appendage clip. Thoracic aorta atherosclerosis without aneurysm. Atherosclerotic calcification of coronary arteries, status post coronary artery bypass graft surgery. Pulmonary arteries are unremarkable. MEDIASTINUM AND LOWER NECK: No mediastinal mass. The visualized portion of the thyroid gland is normal. The esophagus has normal wall thickness. A very small sliding-type hernia is noted. LYMPHATICS: No pathologic sized lymph nodes. UPPER ABDOMEN: Status post cholecystectomy. There appear to be a few old small cysts of the liver. SKELETAL AND CHEST WALL: No acute or suspicious osseous abnormality. Moderate spondylosis of the thoracic spine. Old healed fracture of left lateral 10th rib. 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 CT/CT chest w IV con IMPRESSION: * Mild pulmonary emphysema. * Post surgical changes from prior right upper lobectomy and left upper lobe wedge resection. * Significant improvement in some of the previously seen lower lobe opacities from infectious/inflammatory disease. There is no evidence of a suspicious lung nodule, mass or lymphadenopathy on this follow-up examination.
[2023-10-08] MEDS: iohexoL 350 MG/ML 100 ML INFUS..BTL 65 ML IV (16:16)
[2023-10-09 13:51] LABS: Creatinine POC 1.3 mg/dL (0.5-1.4); GFR POC 56
== END 2023-10-08 14:46 | disposition home or self-care (01) ==
LOC: HO.CT 14:45
PROVIDERS: PCP Internal Medicine; Visit Provider Nurse Practitioner Family
DX: C34.90 Malignant neoplasm of unspecified part of unspecified bronchus or lung (principal)
CPT/HCPCS: 71260; 82565; Q9967

== ENCOUNTER 2023-10-22 14:17 | Outpatient (AMB) | payer MEDICARE, SELFPAY ==
--- NOTE | 2023-10-22 14:43 | MHC.OFFVIS ---
Intake Visit Reasons: PO RT 1st DC release 10/07/23 AR Intake Note: Anthony is a 83 yo right hand dominant male who presents today post-operatively s/p right 1st DC release, 10/07/[address] Norman. Patient denies numbness, tingling, and locking on fingers. Patient reports on and off discomfort. Patient is not taking anything for pain at this time. Sutures removed in office today and steri strips applied. Allergies No Known Allergies Allergy (Verified 10/22/23 14:47) HPI HPI PO RT 1st DC release 10/07/23 AR: Details: Anthony is an 83 year old right hand dominant Diabetic man who returns S/P right 1st dorsal compartment release & APL tenosynovectomy, DOS: 10/07/23. He says he is doing well overall with some intermittent discomfort, but most of his symptoms have improved, which he is happy about. 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 He denies any numbness, tingling, or locking. He has a hx of a right ring finger mallet finger from an injury, DOI: 01/05/23. This was managed successfully with splinting by STEFF Ventura. He has a hx of CAD, PVD, and CPS. He has Diabetes, which he says is well-controlled. He is on Xarelto. ON LICENSE OF [facility] Medical History Arthritis Hiatal hernia COVID-19 On anticoagulant therapy History of blood transfusion Severe sepsis Gallstone pancreatitis GARTH (acute kidney injury) PVD (peripheral vascular disease) History of cancer COPD (chronic obstructive pulmonary disease) GERD (gastroesophageal reflux disease) Hyperlipidemia Diabetes mellitus HTN (hypertension) Paroxysmal atrial fibrillation CAD (coronary artery disease) Surgical History H/O colonoscopy H/O excision of mass History of excision of lesion History of laparoscopic cholecystectomy History of arthroplasty of left hip History of lobectomy of lung H/O heart surgery Social History Household Members: Spouse Housing: House Are you a primary wound care specialist to a significant other at home: No Do you presently have visiting nurse or other home services: No Alcohol intake: former Patient Tobacco Use Status: Former Tobacco user Tobacco use type: Cigarette Cigarette Packs Per Day: 1 service: Yes 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 Sutures removed and Steri-Strips applied He can make a fist and extend all his digits Smooth wrist range of motion. He was able to take his wrist through some gentle radial and ulnar deviation without much in the way of discomfort.. All in all it is feeling better. Sensation is intact Cap refill is brisk Psych Appearance: grossly normal Affect: normal affect Attitude: cooperative Assessment & Plan Assessment & Plan (1) De Quervain's tenosynovitis, right: Code(s): M65.4 - Radial styloid tenosynovitis [de Quervain] Category: Medical (2) Osteoarthritis of carpometacarpal joint of right thumb: Code(s): M18.11 - Unilateral primary osteoarthritis of first carpometacarpal joint, right hand Category: Medical (3) Chronic pain syndrome: Code(s): G89.4 - Chronic pain syndrome Category: Medical (4) Diabetes mellitus: Comment: NIDDM Code(s): E11.9 - Type 2 diabetes mellitus without complications Category: Medical Plan Assessment & Plan: 1. Right De Quervian's tenosynovitis, S/P release & APL tenosynovectomy DOS: 10/07/23 The patient appears to be doing well post-operatively I educated him about the post-operative course I explained the signs and symptoms of infection I discussed activity modifications, he is to lift nothing heavier than a cellphone for the next two weeks He will perform gentle ROM exercises at home He should avoid any underwater activities for the next 5 days He should gently massage about the incision site to reduce the risk of hypersensitivity He can follow up prn 2. Right basal joint osteoarthritis Only minimally symptomatic, and he does not feel like this area is what is bothering him. I educated him about this condition We will continue to manage this conservatively I discussed activity modification, he should limit or avoid any heavy or repetitive pinching, gripping, or scissoring activities He should continue to wear his Comfort cool brace with daily activities. 3. Right ring finger mallet deformity From an injury, DOI: 01/05/23 This was successfully managed by STEFF Ventura in office with splinting Scribed for Diana Norman MD by Hira Drummond, medical appointment scheduler, on 10/22/23 at 3:15 PM, EST. Coding Level of Care Code Global (36374) Diagnoses De Quervain's tenosynovitis, right M65.4 Osteoarthritis of carpometacarpal joint of right thumb M18.11 Chronic pain syndrome G89.4 Diabetes mellitus E11.9
== END 2023-10-22 16:18 | disposition home or self-care (01) ==
PROVIDERS: PCP Internal Medicine; Visit Provider Orthopaedic Surgery
DX: M65.4 Radial styloid tenosynovitis [de Quervain] (principal); M18.11 Unilateral primary osteoarthritis of first carpometacarpal joint, right hand; G89.4 Chronic pain syndrome; E11.9 Type 2 diabetes mellitus without complications
CPT/HCPCS: 99024

== ENCOUNTER → 2023-10-22 14:17 | Outpatient (BNVA) | payer MEDICARE, SELFPAY | PROVIDERS: PCP Internal Medicine; Visit Provider Orthopaedic Surgery | DX: M65.4 Radial styloid tenosynovitis [de Quervain] (principal); M18.11 Unilateral primary osteoarthritis of first carpometacarpal joint, right hand; G89.4 Chronic pain syndrome; E11.9 Type 2 diabetes mellitus without complications | CPT/HCPCS: 99212 ==

== ENCOUNTER 2023-11-08 10:30 | Outpatient (REF) | payer MEDICARE, SELFPAY ==
[2023-11-08 10:34] LABS: MANUAL DIFF FLAG NO
[2023-11-08 10:43] LABS: Basophils Absolute Auto 0.1 X10*3/uL (0.0-0.2); Basophils Percent Auto 0.7 % (0-2); Eosinophils Absolute Auto 0.4 X10*3/uL (0.0-0.4); Hematocrit 32.4 % (42.0-52.0); Hemoglobin 10.4 g/dl (14.0-18.0); Imm Gran Abs Auto 0.01 X10*3/uL (0.00-0.03); Imm Gran Pct Auto 0.1 % (0.0-0.4); Lymphocytes Absolute Auto 2.1 X10*3/uL (1.2-4.9); Lymphocytes Percent Auto 28.3 % (20-40); Mean Corpuscular HGB Conc 32.1 g/dl (31.0-36.0); Mean Corpuscular Hemoglobin 28.9 pg (27.0-33.0); Mean Platelet Volume 10.3 fL (9.4-12.4); Monocytes Absolute Auto 0.7 X10*3/uL (0.1-1.2); Monocytes Percent Auto 9.9 % (2-11); Platelet Count 307 X10*3/uL (160-400); Red Cell Distribution Width 14.8 % (11.0-16.0); White Blood Count 7.3 X10*3/uL (4.8-10.8)
[2023-11-08 10:45] LABS: Appearance Urine Clear; Color Urine Yellow; Glucose Urine UA Negative (Negative); Leukocyte Esterase Urine Trace (Negative); Nitrite Urine Negative (Negative); PH 5.5 (5.0-9.0); Specific Gravity - Urine 1.015 (1.005-1.025); UMIC TRIGGER UACC YES; Urine Blood Negative (Negative); Urine Ketones Negative (Negative); Urine Protein Negative (Neg-Trace)
[2023-11-08 10:50] LABS: Bacteria Urine None Seen (None Seen); Hyaline Casts Urine 0-2 /LPF (0-2); RBC Urine 0-2 /HPF (0-2); Squamous Epithelial Cell Urine 0-2 /HPF (0-2); WBC Urine 0-5 /HPF (0-5)
[2023-11-08 10:53] LABS: Alanine Aminotransferase 12 U/L (0-40); Albumin Level 4.1 g/dL (3.5-5.0); Alkaline Phosphatase 66 U/L (39-117); Anion Gap 11 (12-20); Aspartate Amino Transferase 16 U/L (5-37); Bilirubin Total 0.4 mg/dL (0.0-1.0); Blood Urea Nitrogen 27 mg/dL (9-16); Calcium 10.2 mg/dL (8.4-10.2); Carbon Dioxide 25 mmol/L (22-29); Chloride 110 mmol/L (96-108); Cholesterol 100 mg/dL (<200); Estimated Glomerular Filt Rate 47; Glucose Fasting 92 mg/dL (60-99); HDL Cholesterol 42 mg/dL (>40); Iron 36 mcg/dL (45-160); LDL Cholesterol Calculated 45 mg/dL (<100); Percent Iron Saturation 15 % (15-50); Potassium 5.3 mmol/L (3.3-5.1); Sodium 141 mmol/L (135-145); Total Iron Binding Capacity 234 mcg/dL (228-428); Total Protein 6.8 g/dL (6.5-8.0); Triglycerides 66 mg/dL (<150); Unsaturated Iron Binding 198 ug/dL
[2023-11-08 11:06] LABS: Estimated Average Glucose 120 mg/dL; Hemoglobin A1c % 5.8 % (<6.0)
[2023-11-08 11:17] LABS: PSA,Total (Free>4and<10) 2.03 ng/mL (0.00-4.00)
[2023-11-08 11:50] LABS: Creatinine Urine 62.41 mg/dL; Microalbum/Creatinine Ratio Ur 35.2 ug/mg cr (<30)
== END 2023-11-08 10:31 | disposition home or self-care (01) ==
LOC: HO.LNP 10:30
PROVIDERS: Visit Provider Internal Medicine
DX: E11.9 Type 2 diabetes mellitus without complications (principal); E78.00 Pure hypercholesterolemia, unspecified; D50.9 Iron deficiency anemia, unspecified; I10 Essential (primary) hypertension; Z12.5 Encounter for screening for malignant neoplasm of prostate
CPT/HCPCS: 80053; 80061; 81001; 82043; 82570; 83036; 83540; 84153; 85025

== ENCOUNTER 2023-12-16 11:03 | Outpatient (REF) | payer MEDICARE, SELFPAY ==
[2023-12-16 11:58] LABS: Potassium 4.6 mmol/L (3.3-5.1)
== END 2023-12-16 11:04 | disposition home or self-care (01) ==
LOC: HO.LNP 11:03
PROVIDERS: Visit Provider Internal Medicine
DX: E87.5 Hyperkalemia (principal)
CPT/HCPCS: 84132

== ENCOUNTER 2024-02-04 08:19 | Outpatient (AMB) | payer MEDICARE, SELFPAY ==
[2024-02-04 08:27] VITALS: BP 130/60; PULSE 69; BMI 28.2
--- NOTE | 2024-02-04 08:27 | A.OFFVIS_ITS ---
Vital Signs 02/04/24 08:27 Height 6 ft Weight 207 lb 10.807 oz BMI 28.2 BP 130/60 Blood Pressure Location Lt brachial Position Sitting Pulse 69 Pulse Source Monitor Intake Visit Reasons: 1 yr f/up Intake Note: 1 yr f/up Hand Candy Dipper Required: No Accompanied by: Spouse Allergies No Known Allergies Allergy (Verified 10/22/23 14:47) Medication List - Last Reconciled 02/04/24 by Darryl Padilla MD albuterol sulfate 90 mcg/actuation (ProAir HFA) 90 mcg inhalation DAILY PRN atorvastatin 80 mg PO DAILY cholecalciferol (vitamin D3) (Vitamin D3) 50 mcg PO DAILY cyanocobalamin (vitamin B-12) (Vitamin B-12) 1,000 mcg PO DAILY ferrous sulfate (Feosol) 325 mg PO DAILY lisinopril 20 mg PO BEDTIME metformin 500 mg PO BID multivitamin 1 tab PO DAILY omeprazole 20 mg PO BEDTIME rivaroxaban (Xarelto) 20 mg PO QPM 90 days HPI Comments Details: Anthony comes for follow-up. He declines any new symptoms. Denies any palpitations. Denies any change in his exercise capacity. Denies any shortness of breath, orthopnea, PND, palpitations, lightheadedness, syncope. No bleeding issues or neurologic events. No exertional chest pain. Noted his creatinine to be elevated last couple of times with creatinine clearance below 50. [facility] Medical History (Updated 02/04/24 @ 08:49 by Darryl Padilla MD) Paroxysmal atrial fibrillation Arthritis Hiatal hernia COVID-19 On anticoagulant therapy History of blood transfusion Severe sepsis Gallstone pancreatitis GARTH (acute kidney injury) PVD (peripheral vascular disease) History of cancer COPD (chronic obstructive pulmonary disease) GERD (gastroesophageal reflux disease) Hyperlipidemia Diabetes mellitus HTN (hypertension) CAD (coronary artery disease) Surgical History H/O colonoscopy H/O excision of mass History of excision of lesion History of laparoscopic cholecystectomy History of arthroplasty of left hip History of lobectomy of lung H/O heart surgery Social History Household Members: Spouse Housing: House Are you a primary physician primary care sports medicine to a significant other at home: No Do you presently have visiting nurse or other home services: No Alcohol intake: former Patient Tobacco Use Status: Former Tobacco user Tobacco use type: Cigarette Cigarette Packs Per Day: 1 service: Yes 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 Review of Systems Const Denies chills, Denies fatigue, Denies fever(s), Denies frequent falls, Denies weakness, Denies weight gain and Denies weight loss ENT Denies dizziness Card Denies chest pain, Denies leg edema, Denies lightheadedness, Denies palpitations, Denies dyspnea and Denies dyspnea on exertion Resp Denies cough, Denies dyspnea and Denies dyspnea on exertion GI Denies hematochezia Musc Denies abnormal gait, Denies muscle weakness, Denies numbness, Denies radiating pain into limb and Denies tingling Neuro Denies abnormal gait, Denies dizziness, Denies frequent falls, Denies numbness, Denies tingling and Denies weakness Endo Denies fatigue and Denies palpitations Physical Exam Vital Signs: Last Vital Signs Pulse 69 02/04/24 08:27 BP 130/60 02/04/24 08:27 BMI result Body Mass Index 28.2 Const General: cooperative, comfortable, no acute distress, alert, awake and other ( Positive pallor) Nutritional Appearance: average body habitus Orientation/consciousness: patient oriented x3 Limitations: no limitations Neck Neck: Yes trachea midline, Yes supple and Yes no JVD Resp Effort & Inspection: normal respiratory effort Auscultation: clear to auscultation bilaterally Cardio Jugular venous distension: no JVD Palpation: normal PMI Rhythm: abnormal rhythm irregularly irregular Heart sounds: S1 normal heart sound present, S2 normal heart sound present, no click, no gallops, no murmurs and no rubs Peripheral pulses: other (Reduced distal pulses in the left lower extremity) GI Auscultation: normal bowel sounds Skin General skin exam: no rashes or lesions noted Neuro General: patient oriented x3 and no focal motor deficits Extrem General: No clubbing, No cyanosis and Yes edema ( toribio ankle edema on the left) Psych Appearance: grossly normal Office Procedures EKG Details: EKG shows atrial fibrillation with rightward axis [id number], Complete Assessment & Plan Assessment & Plan (1) Permanent atrial fibrillation: Code(s): I48.21 - Permanent atrial fibrillation Category: Medical Plan: Recurrent atrial fibrillation, persistent with adequate rate control. Patient was absolutely no new symptoms or signs of congestive heart failure or myocardial dysfunction. We discussed about management of atrial fibrillation. Given lack of symptoms or cardiac decompensation will pursue rate control approach. This was discussed with him. Advised to call me with any new symptoms. This is despite Maze procedure in the past in his usually suggestive of irreversible atrial fibrillation. Will check GFR today. If continues to have GFR below 50 will switch to 15 mg of Xarelto. Quarterly renal function test should be pursued. (2) CAD (coronary artery disease): Code(s): I25.10 - Atherosclerotic heart disease of [place] coronary artery without angina pectoris Category: Medical Plan: CAD status post coronary artery bypass grafting without any symptoms of angina. Continue aggressive vascular risk factor modification. Blood pressure is currently well optimized. Continue aggressive diabetes management consider switching metformin to SGLT2 or GLP 1 antagonist to better cardiovascular outcomes. Goal hemoglobin A1c less than 7%. Blood pressure is currently well optimized encouraged to maintain activity level as tolerated. No further workup is indicated at this point time. (3) HTN (hypertension): Code(s): I10 - Essential (primary) hypertension Category: Medical Plan: Hypertension which is currently well optimized advised to monitor blood pressure at home maintain a log. Goal blood pressure less than 130/84. Low-salt diet was advised. Will follow up in the clinic in 1 year's time, sooner p.r.n.. Thank you for allowing me to partake in his care Coding Level of Care Code Est Pt Level 4 (42112) Complex EM visit Add On G2211 Diagnoses Permanent atrial fibrillation I48.21 CAD (coronary artery disease) I25.10 HTN (hypertension) I10 CPT Codes EKG - CPT: 75086-Jahiakqspzzhnxexy, Complete ([id number])
== END 2024-02-04 08:49 | disposition home or self-care (01) ==
PROVIDERS: PCP Internal Medicine; Visit Provider Internal Medicine Cardiovascular Disease
DX: I48.21 Permanent atrial fibrillation (principal); I25.10 Atherosclerotic heart disease of native coronary artery without angina pectoris; I10 Essential (primary) hypertension
CPT/HCPCS: 93010; 99214; G2211

== ENCOUNTER → 2024-02-04 08:19 | Outpatient (BNVA) | payer MEDICARE, SELFPAY | PROVIDERS: PCP Internal Medicine; Visit Provider Internal Medicine Cardiovascular Disease | DX: I48.21 Permanent atrial fibrillation (principal); I25.10 Atherosclerotic heart disease of native coronary artery without angina pectoris; I10 Essential (primary) hypertension | CPT/HCPCS: 93005; 99212 ==

== ENCOUNTER 2024-05-12 10:31 | Outpatient (REF) | payer MEDICARE, SELFPAY ==
--- OUTSIDE RECORDS SUMMARY | 2024-05-12 11:29 | XMS_ITS ---
Author Organization Jordan Gabriel MD Address [address] [place] [phone] Care Team Providers Care Certified Nurse Midwife Name Role Phone Jordan Gabriel Primary Care Provider [phone] REASON FOR VISIT RF Nystatin cream Medications Medication SIG (Take, Route, Fr equency, Duration) Notes Start Date End Date Status Nystatin 776398 UNIT/GM 1 application Ex ternally Twice a day for 14 days 04/28/2019 Active Encounters Encounter Location Date Provider Diagnosis Jordan Gabriel MD [address] [place] [phone] 12/10/2023 Jordan Gabriel 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 Assessments Encounter Date Diagnosis (ICD Code) Assessment Notes Treatment Notes Treatment Clinical Notes Section Notes 12/10/2023 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) Plan Of Treatment Medication Medication Name Sig Start Date Stop Date Notes Nystatin 848854 UNIT/GM 1 application Ex ternally Twice a day for 14 days 04/28/2019 Next Appt Details Provider Name:Jordan Cyr ier, 05/19/2024 01:30:00 PM, [address] [place] [address], [place] [address], [place], [place], [phone], Provider Name:Jordan Cyr ier, 11/10/2024 08:00:00 AM, [address] [place] [address], [place] [address], [place], [place], [phone], Provider Name:Jordan Cyr ier, 11/17/2024 10:30:00 AM, [address] [place] [address], [address], [phone], Progress Notes * Anthony GOODMAN CDOB:1939 (83 yo M)Acc No.[id number]:12/10/2023 Patient:?Anthony Goodman :1940???Age:83 Y???Sex:Male Address: [place] [address] * Refills? Refill Nystatin Cream, 644065 UNIT/GM, Externally, 15, 1 application, Twice a day, 14 days, Refills=3 * true * Date:? Generated for Gautam oh/Isaac/eTransmitting on:?05/12/2024 11:29 AM EST
--- OUTSIDE RECORDS SUMMARY | 2024-05-12 11:30 | XMS_ITS | Patient Health Record ---
Author Organization [facility] Address [address] [place] [address] Care Team Providers Care Inset Cutter Name Role Phone Jordan Gabriel MD Primary Care Provider Patito Carpenter Unavailable [phone] ALLERGIES No Known Allergies REASON FOR REFERRAL No Information MEDICATIONS Medication SIG (Take, Route, Frequency, Duration) Notes Start Date End Date Status Omeprazole 20MG TAKE 1 CAPSULE DAILY for 90 Active Multi Vitamin/Minerals 1 1 tablet Orally once a day Active Atorvastatin Calcium 80 MG 1 tablet Oral ly Once a day Active Iron (Ferrous Sulfate) 325 (65 Fe) MG 1 tablet Orally BID Active Lisinopril-hydroCHLOROthiaz godwin Active Omeprazole 20MG RX TAKE 1 CAPSULE DAILY for 90 Active metFORMIN HCl 500 MG 1 tablet with meals Orally Twice a day Active Calcium + D 315-200 MG-UNIT 1 tablet wit h meals Orally Twice a day Active Vitamin D3 1000 UNIT 1 tablet Orally Onc e a day Active Ventolin HFA 108 (90 Base) MCG/ACT 2 puffs as needed Inhalation every 4 hrs Active Xarelto 10 MG 1 tablet Orally Once a day Active IMMUNIZATIONS Vaccine Route Administration Date Status Comme nts Flu vaccine no Preserv 3 and > Unknown 11/24/2015 Admin istered Influenza Unknown 11/24/2019 Administered Influenza Unknown 11/23/2020 Administered SOCIAL HISTORY Sex Assigned At : Social History Observation Description Sex Assigned At Unknown PROBLEMS Problem Type ICD Code Onset Dates Problem Status W/U Status Risk SNOMED Code Notes Problem Encounter for screening for malignant neoplasm of colon (Z12.11) Active confirmed 685993223 Problem History of adenomatous polyp of colon (Z86.010) Active confirmed 591751901 Problem Encounter for screening for malignant neoplasm of rectum (Z12.12) Active confirmed Screening for malignant neoplasm of rectum (595462102) Problem Iron deficiency anemia (D50.9) Active confirmed Iron deficien cy anemia (39034637) Problem Gastric polyp (K31.7) Active confirmed Gastric polyp (43984779) Problem Hx of colonic polyps (Z86.010) Active confirmed History of polyp of colon (401553791) Problem Long-term (current) use of anticoagulants (Z79.01) Active confirmed 848990497 Problem Iron deficiency anemia, unspecified iron deficiency anemia type (D50.9) Active confirmed 78214168 Problem History of esophageal stricture (Z87.19) Active confirmed 498432946 Problem Gastroesophageal reflux (K21.9) Active confirmed Esophageal reflux finding (520315237) Problem Diverticulosis of sigmoid colon (K57.30) Active confirmed Diverticulosis of sigmoid colon (467808810) PLAN OF TREATMENT Pending Test Test Name Order Date Hemoccult Cards (Non-Screening) 12/05/19 21 IRON + IBC (FE) 12/04/2020 IRON + IBC (FE) 03/09/2021 CBC w DIFF 12/04/2020 CBC w DIFF 03/09/2021 Ferritin 03/09/2021 Ferritin 12/04/2020 Future Test Test Name Order Date UPPER GI ENDOSCOPY BALLOOON DILATION OF ESOPH 08/29/2012 COLONOSCOPY 08/29/2012 COLONOSCOPY 03/29/2016 UPPER GI ENDOSCOPY 10/20/2020 COLONOSCOPY 10/20/2020 Insurance Providers Payer Name Payer Address Payer Phone Subscriber Number Group Number Insured Name Patient Relationship to Insured Coverage Start Date Coverage End Date [place]ARE OF [place] [address] [place] [address] [id number] PATITO BUSTILLO Self - patient is the insured MEDEX ATTN CLAIMS [address] [place] [address] [phone] [id number] PATITO BUSTILLO Self - patient is the insured MEDICAL (GENERAL) HISTORY Medical History History ICD Code Larger tubular adenoma with dysplasia re moved [facility] 11/[facility] Colon[facility] 07-06-2009--small tubular cristina nomas Hyperlipidemia EGD in 11/2008 with a small HH and gastri tis-neg. H. pylori COPD/pneumonia Denies [place],CVA,renal disease HTN Asymptomatic gallstones-this had been reviewed with him on his previous office visit in August,---he had subsequent gallstone pancreatitis and cholecystectomy as below Upper endoscopy in August with a finding of a fibrotic distal esophageal stricture that was dilated successfully with balloons Colonoscopy in August of 2012 with removal of small tubular adenomas Atrial flutter--sees Dr. Randy QUINTERO Colonoscopy 06/2016-small tubular adenoma s Gallstone pancreatitis Iron deficiency anemia 2020 with the below workup--3 Hemoccult cards were negative in December 2020 EGD 11/2020 revealed a small hiatal hernia, was otherwise negative. 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
--- OUTSIDE RECORDS SUMMARY | 2024-05-12 11:30 | XMS_ITS ---
Author Organization Jordan Gabriel MD Address [address] [place] [phone] Care Team Providers Care Rate Clerk Passenger Name Role Phone Nery Jordan Primary Care Provider REASON FOR VISIT FASTING LIPIDS Encounters Encounter Location Date Provider Diagnosis Jordan Gabriel MD [address] [place] [phone] 05/12/2024 Jordan Gabriel Type 2 diabetes mina itus without complications E11.9 and Pure hypercholesterolemia E78.00 Assessments Encounter Date Diagnosis (ICD Code) Assessment Notes Treatment Notes Treatment Clinical Notes Section Notes 05/12/2024 Type 2 diabetes mina itus without complications (ICD-10 - E11.9) 05/12/2024 Pure hypercholesterolemia (ICD-10 - E78.00) Plan Of Treatment Pending Test Test Name Order Date Liver Panel 05/12/2024 Glucose Fasting 05/12/2024 Lipid Panel with Reflex 05/12/2024 Hemoglobin A1c 05/12/2024 Next Appt Details Provider Name:Jordan Cyr ier, 05/19/2024 01:30:00 PM, [address] [facility], [address], [place], [place], [phone], Provider Name:Jordan Cyr ier, 11/10/2024 08:00:00 AM, [address] [facility], [address], [place], [place], [phone], Provider Name:Jordan Cyr ier, 11/17/2024 10:30:00 AM, [address] [place] [address], Suite [facility], [place], [place], [phone], Progress Notes * Anthony GOODMAN CDOB:1939 (84 yo M)Acc No.[id number]:05/12/2024 Progress Note Patient:?Anthony GOODMAN C Provider:?Jordan Gabriel MD :1940???Age:84 Y???Sex:Male Keron e:05/12/2024 Address:[address] [place] [address] [address] [facility] Subjective: * Chief Complaints: * ???1. FASTING LIPIDS. * Medical History:? Objective: * Vitals:? Assessment: * Assessment: 1.?Type 2 diabetes mellitus without complications - E11.9 (Primary)???2.?Pure hypercholesterolemia - E78.00??? Plan: * Treatment: 2.?Pure hypercholesterolemia ?LAB: Liver Panel ?LAB: Glucose Fasting ?LAB: Lipid Panel with Reflex ?LAB: Hemoglobin A1c * Procedure Codes:?06119 VENIP UNCT, ROUTINE* * * The named appointment provid er may or may not be the originator of this progress note, and it is not deemed complete until electronically signed by the appointment provider. Sign off status: Pending * Provider:?Jordan Gabriel MD Date:?0 05/12/2024 Generated for Gautam oh/Isaac/Esequiel on:?05/12/2024 11:29 AM EST
--- OUTSIDE RECORDS SUMMARY | 2024-05-12 11:30 | XMS_ITS ---
Author Organization Jordan Gabriel MD Address [address] [place] [phone] Support Name Relationship Address Phone SteffanykatelinChepen Caregiver [address] [facility] [address] [place] [phone] JEFFERY HUSTON Caregiver [address] [place] [phone] Alfred Pierre Caregiver [address] [facility] [address] [place] [phone] Anthony Andrews Caregiver [address] [facility] [address] [place] [phone] Erickson Payton Caregiver [address] [place] [phone] Cr Foley Caregiver [address] [facility] [address] [place] [phone] Darryl Padilla Caregiver [address] [place] [phone] Vicente Leigh Caregiver [address] [place] [phone] Unavailable Emergency Contact Unknown Anthony Goodman Guarantor Unknown Care Team Providers Care Fbi Investigator Name Role Phone Jordan Gabriel Primary Care Provider Results Component Value Reference Range Notes Potassium Reviewed date:12/16/2023 12:34:18 PM Interpretation: Performing Lab:[facility], [address] [place] [phone] Notes/Report: Potassium 4.6 3.3-5.1 mmol/L REASON FOR VISIT POTASSIUM Encounters Encounter Location Date Provider Diagnosis Jordan Gabriel MD [address] [place] [phone] 12/16/2023 Jordan Gabriel Chronic hyperkalemia E87.5 Assessments Encounter Date Diagnosis (ICD Code) Assessment Notes Treatment Notes Treatment Clinical Notes Section Notes 12/16/2023 Chronic hyperkalemia (ICD-10 - E87.5) Plan Of Treatment Next Appt Details Provider Name:Jordan Cyr ier, 05/19/2024 01:30:00 PM, [address], [address], [place], [place], [phone], Provider Name:oJrdan Cyr ier, 11/10/2024 08:00:00 AM, [address], [address], [place], [phone], Provider Name:Jordan Reyes Steffanydebbie yoonr, 11/17/2024 10:30:00 AM, [address] [facility], [address], [place], [place], [phone], Progress Notes * Anthony GOODMAN CDOB:1939 (84 yo M)Acc No.[id number]:12/16/2023 Progress Note Patient:?Anthony GOODMAN C Provider:?Jordan Gabriel MD :1940???Age:83 Y???Sex:Male Keron e:12/16/2023 Address:[address] [place], [place] [address] [facility] Subjective: * Chief Complaints: * ???1. POTASSIUM. * Medical History:? Objective: * Vitals:? Assessment: * Assessment: 1.?Chronic hyperkalemia - E8 7.5 (Primary)??? Plan: * Treatment: * Procedure Codes:?02276 VENIP UNCT, ROUTINE* * * The named appointment provid er may or may not be the originator of this progress note, and it is not deemed complete until electronically signed by the appointment provider. Sign off status: Pending * Provider:?Jordan Gabriel MD Date:?0 12/16/2023 Generated for Gautam oh/Isaac/eTransmitting on:?05/12/2024 11:29 AM EST
[2024-05-12 11:50] LABS: Estimated Average Glucose 126 mg/dL; Hemoglobin A1C 111.8832 umol/L; Total Hemoglobin (HGBA1C) 2663.7293 umol/L
[2024-05-12 12:23] LABS: Alanine Aminotransferase 18 U/L (0-40); Alkaline Phosphatase 72 U/L (39-117); Aspartate Amino Transferase 28 U/L (5-37); Bilirubin Direct 0.2 mg/dL (0.0-0.5); Bilirubin Total 0.5 mg/dL (0.0-1.0); Cholesterol 106 mg/dL (<200); Glucose Fasting 95 mg/dL (60-99); HDL Cholesterol 43 mg/dL (>40); LDL Cholesterol Calculated 49 mg/dL (<100); Total Protein 7.1 g/dL (6.5-8.0); Triglycerides 71 mg/dL (<150)
[2024-05-12 13:39] LABS: Reflex LDLD? No
== END 2024-05-12 10:32 | disposition home or self-care (01) ==
LOC: HO.LNP 10:31
PROVIDERS: Visit Provider Internal Medicine
DX: E11.9 Type 2 diabetes mellitus without complications (principal); E78.00 Pure hypercholesterolemia, unspecified
CPT/HCPCS: 80061; 80076; 82947; 83036

== ENCOUNTER 2024-05-13 10:46 | Outpatient (REF) | payer MEDICARE, SELFPAY ==
--- NOTE | ~2024-05-13 | CT_ITS ---
EXAMINATION: CT CHEST WITHOUT CONTRAST CLINICAL INFORMATION: Follow-up exam after treatment for lung carcinoma. COMPARISON: 10/08/2023. 08/13/2023. TECHNIQUE: Multidetector volumetric CT imaging of the chest was done. Axial MIP volume rendering provided. Sagittal and coronal reformatted images were obtained. This CT examination was performed using dose optimization techniques as appropriate, variously including the following: *Automated exposure control *Adjustment of mA and/or kV according to patient size (this includes techniques or standardized protocols for targeted exams where dose is matched to indication/reason for exam; i.e. extremities or head) *Use of iterative reconstruction technique FINDINGS: LUNGS: -Pulmonary emphysema, unchanged. -Right upper lobe resection. -Left upper lobe wedge resection with suture line present. -Diffuse small airway thickening is again noted throughout both lungs. -There is linear scarring in the right lateral base with numerous tiny calcifications. Subpleural scarring and ossifications left lateral base. -Previously seen nodular airspace opacity in the left costophrenic sulcus has resolved. -4 mm nodule abutting the left lateral major fissure is consistent with an intrapulmonary lymph node. -Currently there are no suspicious pulmonary nodules present. MEDIASTINUM: -Prior median sternotomy and probable CABG. -Mild left atrial enlargement. Left atrial appendage clip. -Main pulmonary artery is enlarged suggesting pulmonary arterial hypertension. -Moderate to severe atheromatous calcification of the aorta, which is mildly uncoiled and mildly tortuous. No aneurysm. -There is no mediastinal lymphadenopathy. A 9 mm subcarinal lymph node is stable and unchanged from the most recent prior exam, and smaller when compared with 08/13/2023. -Mild diffuse thickening of the esophagus noted, with a type hiatus hernia the GE junction. -Thyroid is normal. PLEURA: There is no pleural effusion. No pleural mass or thickening. AXILLA: No lymphadenopathy. UPPER ABDOMEN: -The liver demonstrates approximately 3 poorly defined hypoattenuating subcentimeter foci, the largest in segment 4B measuring 9 mm. These appear stable/ unchanged. -There has been a cholecystectomy. -Type 1 hiatus hernia. OSSEOUS STRUCTURES: -No suspicious lytic or blastic bone lesions. -Median sternotomy. Sternal wires intact. -Mild degenerative spondylosis of the spine. -Postop changes fifth and sixth right posterior ribs. Old healed fracture left lateral 10th rib. CT/CT chest wo IV con IMPRESSION: 1. Pulmonary emphysema, unchanged. Postop right upper lobe resection and left upper lobe wedge resection. Stable mild diffuse airway thickening. 2. No persistent suspicious pulmonary nodules. Previously seen linear and nodular left base opacities have resolved. No new or enlarging nodules seen. 3. Stable bibasilar scarring with tiny calcifications. 4. No abnormal mediastinal lymphadenopathy. A 9 mm subcarinal node has continued to decrease in size from 08/13/2023. 5. Prior CABG, with left atrial appendage clip. There is enlargement of the left atrium. 6. Findings suggesting pulmonary arterial hypertension. 7. Additional ancillary findings as discussed in the body of the report. Electronically signed by: Oseas Wallace MD 05/13/2024 11:42 AM ASHLEY
--- OUTSIDE RECORDS SUMMARY | 2024-05-13 11:31 | XMS_ITS ---
Author Organization Jordan Gabriel MD Address [address] [place] [phone] Care Team Providers Care Family Support Coordinator Name Role Phone Jordan Gabriel Primary Care Provider Results Component Value Reference Range Notes Liver Panel Reviewed date:05/12/2024 04:52:54 PM Interpretation: Performing Lab:[facility], [address] [place] [phone] Notes/Report: Bilirubin Total 0.5 0.0-1.0 mg/dL Bilirubin Direct 0.2 0.0-0.5 mg/dL Aspartate Amino Transferase 28 5-37 U/L Alanine Aminotransferase 18 0-40 U/L Total Protein 7.1 6.5-8.0 g/dL Albumin Level 4.0 3.5-5.0 g/dL Alkaline Phosphatase 72 39-117 U/L Glucose Fasting Reviewed date:05/12/2024 04:53:04 PM Interpretation: Performing Lab:[facility], [address] [place] [phone] Notes/Report: Glucose Fasting 95 60-99 mg/dL Lipid Panel with Reflex Reviewed date:05/12/2024 04:53:13 PM Interpretation: Performing Lab:[facility], [address] [place] [phone] Notes/Report: Triglycerides 71 <150 mg/dL Desirable Triglyceride: less than 150 mg/dL Borderline High Triglyceride 150-199 mg/dL High Triglyceride: 200-499 mg/dL Very High Triglyceride: greater than or equal to 5OO mg/dL Cholesterol 106 <200 mg/dL Desirable Cholesterol: less than 200 mg/dL Borderline High Cholesterol: 200-239 mg/dL High Cholesterol: greater than 239 mg/dL LDL Cholesterol Calculated 49 <100 mg/dL Desirable LDL: less than 100 mg/dL Near Optimal/Above Optimal LDL: 110-129 mg/dL Borderline High LDL: 130-159 mg/dL High LDL: 160-189 mg/dL Very High LDL: greater than or equal to 190 mg/dL HDL Cholesterol 43 >40 mg/dL Desirable HDL: greater than 40 mg/dL Note: This HDL assay may give artificially low results in patients with liver disease. Hemoglobin A1c Reviewed date:05/12/2024 12:07:37 PM Interpretation: Performing Lab:[facility], [address] [place] [phone] Notes/Report: Hemoglobin A1c % 6.0 <6.0 % Hemoglobin A1C Reference Range Adults: 4.8 - 6.0 % Non diabetic: < 6.0 % Goal: < 7.0 % Additional Action Suggested: > 8.0 % Note: Hemoglobin A1c results are invalid for patients with abnormal amounts of HbF. Blood transfusions may impact the HbA1c concentration in the patient sample. Estimated Average Glucose 126 eAG = Estimated average glucose which is %A1C expressed as average glucose, using the formula of the R7S-Pjabudv Average Glucose study (ADAG), Diabetes Care, Vol.31,#8, Oct. 2007 REASON FOR VISIT FASTING LIPIDS Encounters Encounter Location Date Provider Diagnosis Jordan Gabriel MD [address] [place], [place] [phone] 05/12/2024 Jordan Gabriel Type 2 diabetes mina itus without complications E11.9 and Pure hypercholesterolemia E78.00 Assessments Encounter Date Diagnosis (ICD Code) Assessment Notes Treatment Notes Treatment Clinical Notes Section Notes 05/12/2024 Type 2 diabetes mina itus without complications (ICD-10 - E11.9) 05/12/2024 Pure hypercholesterolemia (ICD-10 - E78.00) Plan Of Treatment Next Appt Details Provider Name:Jordan ward, 05/19/2024 01:30:00 PM, [address] [place] [address], Suite [facility], [place], [place], [phone], Provider Name:Jordan ward, 11/10/2024 08:00:00 AM, [address] [place] [address], Suite [facility], [place], [place], [phone], Provider Name:Jordan ward, 11/17/2024 10:30:00 AM, [address] [place] [address], Suite [facility], [place], [place], [phone], Progress Notes * Anthony GOODMAN CDOB:1939 (84 yo M)Acc No.[id number]:05/12/2024 Progress Note Patient:?Anthony GOODMAN Provider:?Jordan Gabriel MD :1940???Age:84 Y???Sex:Male Keron e:05/12/2024 [facility] Subjective: * Chief Complaints: * ???1. FASTING LIPIDS. * Medical History:? Objective: * Vitals:? Assessment: * Assessment: 1.?Type 2 diabetes mellitus without complications - E11.9 (Primary)???2.?Pure hypercholesterolemia - E78.00??? Plan: * Treatment: 2.?Pure hypercholesterolemia ?LAB: Liver Panel (Collection Date & Time - 05/12/2024 07:45 AM) ?LAB: Glucose Fasting (Collection Date & Time - 05/12/2024 07:45 AM) ?LAB: Lipid Panel with Reflex (Collection Date & Time - 05/12/2024 07:45 AM) ?LAB: Hemoglobin A1c (Collection Date & Time - 05/12/2024 07:45 AM) * Procedure Codes:?92322 VENIP UNCT, ROUTINE* * * The named appointment provid er may or may not be the originator of this progress note, and it is not deemed complete until electronically signed by the appointment provider. Sign off status: Pending * Provider:?Jordan Gabriel MD Date:?0 05/12/2024 Generated for Gautam oh/Isaac/Editting on:?05/13/2024 11:30 AM EST
--- OUTSIDE RECORDS SUMMARY | 2024-05-13 11:31 | XMS_ITS | Patient Health Record ---
Author Organization [facility] Address [address] [place] [address] Care Team Providers Care Aerial Photograph Interpreter Name Role Phone Jordan Gabriel MD Primary Care Provider Patito Carpenter Unavailable [phone] ALLERGIES No Known Allergies REASON FOR REFERRAL [...] malignant neoplasm of colon (Z12.11) Active confirmed 103235764 Problem History of adenomatous polyp of colon (Z86.010) Active confirmed 396362814 Problem Encounter for screening for malignant neoplasm of rectum (Z12.12) Active confirmed Screening for malignant neoplasm of rectum (797011478) Problem Iron deficiency anemia (D50.9) Active confirmed Iron deficien cy anemia (81420561) Problem Gastric polyp (K31.7) Active confirmed Gastric polyp (62268887) Problem Hx of colonic polyps (Z86.010) Active confirmed History of polyp of colon (885809830) Problem Long-term (current) use of anticoagulants (Z79.01) Active confirmed 777981940 Problem Iron deficiency anemia, unspecified iron deficiency anemia type (D50.9) Active confirmed 19242203 Problem History of esophageal stricture (Z87.19) Active confirmed 090651656 Problem Gastroesophageal reflux (K21.9) Active confirmed Esophageal reflux finding (889607659) Problem Diverticulosis of sigmoid colon (K57.30) Active confirmed Diverticulosis of sigmoid colon (840728034) PLAN OF TREATMENT Pending Test Test Name Order Date Hemoccult Cards (Non-Screening) 12/05/19 21 IRON + IBC (FE) 12/04/2020 IRON + IBC (FE) 03/09/2021 CBC w DIFF 03/09/2021 CBC w DIFF 12/04/2020 Ferritin 03/09/2021 Ferritin 12/04/2020 Future Test Test Name Order Date UPPER GI ENDOSCOPY BALLOOON DILATION OF ESOPH 08/29/2012 COLONOSCOPY 08/29/2012 COLONOSCOPY 03/29/2016 UPPER GI ENDOSCOPY 10/20/2020 COLONOSCOPY 10/20/2020 Insurance Providers Payer Name Payer Address Payer Phone Subscriber Number Group Number Insured Name Patient Relationship to Insured Coverage Start Date Coverage End Date MED[place]ARE OF [place] [address] [place] [address] [id number] PATITO BUSTILLO Self - patient is the insured MEDEX ATTN CLAIMS [address] [place] [address] [id number] PATITO BUSTILLO Self - patient is the insured MEDICAL (GENERAL) HISTORY Medical History History ICD Code Larger tubular adenoma with dysplasia re moved [facility] 11[facility] Colon[facility] 07-06-2009--small tubular cristina nomas Hyperlipidemia EGD in 11/2008 with a small HH and gastri tis-neg. H. pylori COPD/pneumonia Denies [place],CVA,renal disease HTN Asymptomatic gallstones-this had been reviewed [...]
--- OUTSIDE RECORDS SUMMARY | 2024-05-13 11:31 | XMS_ITS ---
Author Organization Jordan Gabriel MD Address [address] [place] [phone] Care Team Providers Care Clinical Lab Assistant Name Role Phone Jordan Gabriel Primary Care Provider REASON FOR VISIT RF Nystatin cream Medications Medication SIG (Take, Route, Fr equency, Duration) Notes Start Date End Date Status Nystatin 087454 UNIT/GM 1 application Ex ternally Twice a day for 14 days 04/28/2019 Active Encounters Encounter Location Date Provider Diagnosis Jordan Gabriel MD [address] [place] [phone] 12/10/2023 Jordan Gabriel 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 Assessments Encounter Date Diagnosis (ICD Code) Assessment Notes Treatment Notes Treatment Clinical Notes Section Notes 12/10/2023 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) Plan Of Treatment Medication Medication Name Sig Start Date Stop Date Notes Nystatin 228639 UNIT/GM 1 application Ex ternally Twice a day for 14 days 04/28/2019 Next Appt Details Provider Name:Jordan Cyr ier, 05/19/2024 01:30:00 PM, [address] [place] [address], [place] [address], [place], [place], [phone], Provider Name:Jordan Cyr ier, 11/10/2024 08:00:00 AM, [address] [place] [address], [place] [address], [place], [place], [phone], Provider Name:Jordan Cyr ier, 11/17/2024 10:30:00 AM, [address] [place] [address], [address], [phone], Progress Notes * Anthony GOODMAN CDOB:1939 (83 yo M)Acc No.[id number]:12/10/2023 Patient:?Anthony Goodman :1940???Age:83 Y???Sex:Male Address: [place] [address] * Refills? Refill Nystatin Cream, 456233 UNIT/GM, Externally, 15, 1 application, Twice a day, 14 days, Refills=3 * true * Date:? Generated for Gautam oh/Isaac/eTransmitting on:?05/13/2024 11:30 AM EST
--- OUTSIDE RECORDS SUMMARY | 2024-05-13 11:31 | XMS_ITS ---
Author Organization Jordan Gabriel MD Address [address] [place] [phone] Care Team Providers Care Video Tape Duplicator Name Role Phone Jordan Gabriel Primary Care Provider Results Component Value Reference Range Notes Potassium Reviewed date:12/16/2023 12:34:18 PM Interpretation: Performing Lab:[facility], [address] [place] [phone] Notes/Report: Potassium 4.6 3.3-5.1 mmol/L REASON FOR VISIT POTASSIUM Encounters Encounter Location Date Provider Diagnosis Jordan Gabriel MD [address] [place] [phone] 12/16/2023 Jordan Gabriel Chronic hyperkalemia E87.5 Assessments Encounter Date Diagnosis (ICD Code) Assessment Notes Treatment Notes Treatment Clinical Notes Section Notes 12/16/2023 Chronic hyperkalemia (ICD-10 - E87.5) Plan Of Treatment Next Appt Details Provider Name:Jordan Cyr ier, 05/19/2024 01:30:00 PM, [address], [address], [place], [place], [phone], Provider Name:Jordan Cyr ier, 11/10/2024 08:00:00 AM, [address], [address], [place], [phone], Provider Name:Jordan Reyes Steffanydebbie yoonr, 11/17/2024 10:30:00 AM, [address] [facility], [address], [place], [place], [phone], Progress Notes * Anthony GOODMAN CDOB:1939 (84 yo M)Acc No.[id number]:12/16/2023 Progress Note Patient:?Anthony GOODMAN C Provider:?Jordan Gabriel MD :1940???Age:83 Y???Sex:Male Keron e:12/16/2023 Address:[address] [place], [place] [address]j[address] [facility] Subjective: * Chief Complaints: * ???1. POTASSIUM. * Medical History:? Objective: * Vitals:? Assessment: * Assessment: 1.?Chronic hyperkalemia - E8 7.5 (Primary)??? Plan: * Treatment: * Procedure Codes:?14052 VENIP UNCT, ROUTINE* * * The named appointment provid er may or may not be the originator of this progress note, and it is not deemed complete until electronically signed by the appointment provider. Sign off status: Pending * Provider:?Jordan Gabriel MD Date:?0 12/16/2023 Generated for Gautam oh/Isaac/eTransmitting on:?05/13/2024 11:31 AM EST
== END 2024-05-13 10:47 | disposition home or self-care (01) ==
LOC: HO.CT 10:46
PROVIDERS: PCP Internal Medicine; Visit Provider Nurse Practitioner Family
DX: Z85.9 Personal history of malignant neoplasm, unspecified (principal)
CPT/HCPCS: 71250

== ENCOUNTER → 2024-05-13 10:48 | Outpatient (BNV) | payer MEDICARE, SELFPAY | PROVIDERS: PCP Internal Medicine; Visit Provider Radiology Diagnostic Radiology | DX: J43.9 Emphysema, unspecified (principal) | CPT/HCPCS: 71250 ==

== ENCOUNTER 2024-07-11 09:15 | Outpatient (REF) | payer MEDICARE, SELFPAY ==
--- NOTE | ~2024-07-11 | XR_ITS ---
CLINICAL HISTORY: pain 2 view chest x-ray Comparison: 07/31/2023 Findings: No new consolidation or effusion. Heart size is normal. No acute fracture. IMPRESSION: 1. No acute findings. This document has been electronically signed by: Alfred Ma MD on 07/11/2024 10:35:49
[2024-07-11 11:54] LABS: Influenza A PCR NEGATIVE (Negative); Influenza B PCR NEGATIVE (Negative); Resp Syncy Virus RNA Qual PCR NEGATIVE (Negative); SARS COV2 PCR INHOUSE NEGATIVE (Negative)
== END 2024-07-11 09:16 | disposition home or self-care (01) ==
LOC: HO.HMGCX 09:15
PROVIDERS: PCP Internal Medicine; Visit Provider Physician Assistant Medical
DX: J06.9 Acute upper respiratory infection, unspecified (principal); R05.9 Cough, unspecified
CPT/HCPCS: 0241U; 71046; 99202

== ENCOUNTER 2024-07-11 09:15 | Outpatient (AMB) | payer MEDICARE, SELFPAY ==
--- OUTSIDE RECORDS SUMMARY | 2024-07-11 09:17 | XMS_ITS ---
Author Organization Jordan Gabriel MD Address [address] [place] [phone] Care Team Providers Care Retail Brand Ambassador Name Role Phone Jordan Gabriel Primary Care Provider [phone] Results Component Value Reference Range Notes Liver Panel Reviewed date:05/12/2024 04:52:54 PM Interpretation: Performing Lab:[facility], [address] [place] [phone] Notes/Report: Bilirubin Total 0.5 0.0-1.0 mg/dL Bilirubin Direct 0.2 0.0-0.5 mg/dL Aspartate Amino Transferase 28 5-37 U/L Alanine Aminotransferase 18 0-40 U/L Total Protein 7.1 6.5-8.0 g/dL Albumin Level 4.0 3.5-5.0 g/dL Alkaline Phosphatase 72 39-117 U/L Glucose Fasting Reviewed date:05/12/2024 04:53:04 PM Interpretation: Performing Lab:[facility], [address] [place] [phone] Notes/Report: Glucose Fasting 95 60-99 mg/dL Lipid Panel with Reflex Reviewed date:05/12/2024 04:53:13 PM Interpretation: Performing Lab:[facility], [address] [place] [phone] Notes/Report: Triglycerides 71 <150 mg/dL Desirable Triglyceride: [...] A1c Reviewed date:05/12/2024 12:07:37 PM Interpretation: Performing Lab:[facility], [address] [place] [phone] Notes/Report: Hemoglobin A1c % 6.0 <6.0 % [...] average glucose, using the formula of the A9H-Gxwokzv Average Glucose study (ADAG), Diabetes Care, Vol.31,#8, Oct. 2007 REASON FOR VISIT FASTING LIPIDS Encounters Encounter Location Date Provider Diagnosis Jordan Gabriel MD [address] [place], [place] [phone] 05/12/2024 Jordan Gabriel Type 2 diabetes mina itus without complications E11.9 and Pure hypercholesterolemia E78.00 Assessments Encounter Date Diagnosis (ICD Code) Assessment Notes Treatment Notes Treatment Clinical Notes Section Notes 05/12/2024 Type 2 diabetes mina itus without complications (ICD-10 - E11.9) 05/12/2024 Pure hypercholesterolemia (ICD-10 - E78.00) Plan Of Treatment Next Appt Details Provider Name:Jordan ward, 11/10/2024 08:00:00 AM, [address], Suite [facility], [place], [place], [phone], Provider Name:Jordan ward, 11/17/2024 10:30:00 AM, [address] [place] [address], Suite [facility], [place], [place], [phone], Provider Name:Jordan ward, 05/21/2025 01:45:00 PM, [address], [place], [place], [phone], Progress Notes * Anthony GOODMAN CDOB:1939 (84 yo M)Acc No.[id number]:05/12/2024 Progress Note Patient:?Anthony GOODMAN Provider:?Jordan Gabriel MD :1940???Age:84 Y???Sex:Male Keron e:05/12/2024 [facility] Subjective: * Chief Complaints: * ???1. FASTING [...] Time - 05/12/2024 07:45 AM) * Procedure Codes:?32543 VENIP UNCT, ROUTINE* * * The named appointment provid er may or may not be the originator of this progress note, and it is not deemed complete until electronically signed by the appointment provider. Sign off status: Pending * Provider:?Jordan Gabriel MD Date:?0 05/12/2024 Generated for Gautam oh/Isaac/Editting on:?07/11/2024 09:17 AM EDT
--- OUTSIDE RECORDS SUMMARY | 2024-07-11 09:17 | XMS_ITS ---
Author Organization [facility] Address [address] [place] [address] Care Team Providers Care Corrective Therapy Aide Teacher Name Role Phone Jordan Gabriel MD Primary Care Provider Patito Carpenter Unavailable [phone] Allergies No Known Allergies REASON FOR VISIT [...] Status W/U Status Risk Notes Problem Dysphagia (02285945) Dysphagia (R13.10) Active confirmed Vital Signs Temperature [...] N/A Encounters Encounter Location Date Provider Diagnosis [facility] [address] [facility] [address] [place] [address] 07/01/2024 Patito Andrews Dysphagia R13.10 ; History [...] Appt Details Provider Name:Patito Andrews , 07/23/2024 02:20:00 PM, [address] [place] [address], [phone], Progress Notes * PATITO BUSTILLO CDOB:1939 (84 yo M)Acc No.[id number]:07/01/2024 Progress Notes Patient:?PATITO BUSTILLO Provider:?Patito Andrews MD :1940???Age:84 Y???Sex:Male Keron e:07/01/2024 Address: [address] [facility] Pcp:Jordan Gabriel MD Subjective: * Chief Complaints: [...] HH and gastritis-neg. H. pylori, COPD/pneumonia, Denies IN,CVA,renal disease, HTN, Asymptomatic gallstones-this had been reviewed with him on his previous office visit in August,---he had subsequent gallstone pancreatitis and cholecystectomy as below, Upper endoscopy in August of 2012 with a finding of a fibrotic distal esophageal stricture that was dilated successfully with balloons, Colonoscopy in August of 2012 with removal of small tubular adenomas, Atrial flutter/Atrial fib--sees Dr. Padilla, [facility], Colonoscopy 06/2016-small tubular adenomas, Gallstone pancreatitis, Iron [...] for 07/23/24 at 2:00 pmmac * Procedure Codes:?89527 ESOPH JD ENDOSCOPY * Preventive Medicine:? ??Counseling:?Care [...] MD Date:? 025 Generated for Gautam oh/Isaac/Esequiel on:?07/11/2024 09:17 AM EDT
--- OUTSIDE RECORDS SUMMARY | 2024-07-11 09:17 | XMS_ITS ---
Author Organization Jordan Gabriel MD Address [address] [place] [phone] Care Team Providers Care Financial Accounting Analyst Name Role Phone Nery Jordan Primary Care Provider [phone] Allergies No Known Allergies Reason For [...] Inhalation every 4 hrs Not-Takin g Nystatin 909692 UNIT/GM 1 application Externally Twice a day for 14 days 04/28/2019 Active metFORMIN HCl 500 MG TAKE 1 TABLET BY MO [facility] TWICE A DAY WITH MEALS for 90 [...] Location Date Provider Diagnosis Jordan Gabriel MD [address] [place] [address] [place] [phone] 05/19/2024 Jordan Gabriel Encounter for genera l [...] Details Provider Name:Jordan ward, 11/10/2024 08:00:00 AM, [address] [place] [address], [address] [place] [address], [phone], Provider Name:Jordan ward, 11/17/2024 10:30:00 AM, [address] [place] [address], [address] [place] [address], [phone], Provider Name:Jordan ward, 05/21/2025 01:45:00 PM, [address] [place] [address], [place] [address], [place], [place], [phone], Progress Notes * Anthony GOODMAN CDOB:1939 (84 yo M)Acc No.[id number]:05/19/2024 Progress Note Patient:?Anthony GOODMAN Provider:?Jordan Gabriel MD :1940???Age:84 Y???Sex:Male Keron e:05/19/2024 Address: [address] [place] [id number] Subjective: * Chief Complaints: * ???6 [place] [...] and updated during today's visit?Past Medical History, [place] of Care, Surgical/Hospitalization History, Current medications including [...] spouse. Marital status: . 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 Pets: dogs. Travel outside of the [...] as needed Inhalation every 4 hrs Nystatin 574248 UNIT/GM Cream 1 application Externally Twice a [...] needed Inhalation every 4 hrs Taking Nystatin 760254 UNIT/GM Cream 1 application Externally Twice a [...] MD Date:?0 05/19/2024 Generated for Gautam oh/Isaac/eTransmitting on:?07/11/2024 09:17 AM EDT History and Physical Notes * [...] updated during today's visit: Past Medical History, [place] of Care, Surgical/Hospitalization History, Current medications including [...]
--- OUTSIDE RECORDS SUMMARY | 2024-07-11 09:17 | XMS_ITS | Patient Health Record ---
Author Organization [facility] Address [address] [place] [address] Care Team Providers Care Orthopedic Nurse Name Role Phone Jordan Gabriel MD Primary Care Provider Patito Carpenter Unavailable [phone] Allergies No Known Allergies Reason For Referral [...] Problem Status W/U Status Risk Notes Problem 071189747 Encounter for screening for malignant neoplasm of colon (Z12.11) Active confirmed Problem 351137517 History of adenomatous polyp of colon (Z86.010) Active confirmed Problem Screening for malignant neoplasm of rectum (808602236) Encounter for screening for malignant neoplasm of rectum (Z12.12) Active confirmed Problem Dysphagia (73874463) Dysphagia (R13.10) Active confirmed Problem Iron deficiency anemia (82068005) Iron deficiency anemia (D50.9) Active confirmed Problem Gastric polyp (65064248) Gastric polyp (K31.7) Active confirmed Problem History of polyp of colon (292507552) Hx of colonic polyps (Z86.010) Active confirmed Problem 141127671 Long-term (curre nt) use of anticoagulants (Z79.01) Active confirmed Problem 15984882 Iron deficiency anemia, unspecified iron deficiency anemia type (D50.9) Active confirmed Problem 046462871 History of esophageal stricture (Z87.19) Active confirmed Problem Esophageal reflux finding (337313122) Gastroesophageal reflux (K21.9) Active confirmed Problem Diverticulosis of sigmoid colon (066908239) Diverticulosis of sigmoid colon (K57.30) Active confirmed [...] N/A Encounters Encounter Location Date Provider Diagnosis [facility] [address] [place] [phone] 07/01/2024 Patito Andrews Dysphagia R13.10 ; History of esophageal stricture Z87.19 and Gastroesophageal reflux K21.9 [facility] [address] [place] [phone] 06/01/2024 Patito Andrews Assessments Encounter Date Diagnosis [...] DIFF 12/04/2020 CBC w DIFF 03/09/2021 Ferritin 12/04/2020 Ferritin 03/09/2021 Future Test Test Name Order Date UPPER GI ENDOSCOPY BALLOOON DILATION OF ESOPH 08/29/2012 COLONOSCOPY 08/29/2012 COLONOSCOPY 03/29/2016 UPPER GI ENDOSCOPY 10/20/2020 COLONOSCOPY 10/20/2020 Next Appt Details Provider Name:Patito Andrews , 07/23/2024 02:20:00 PM, [address] [place] [address] , [place], [place], [id number], Insurance Providers Payer Name Payer Address Payer Phone Subscriber Number Group Number Insured Name Patient Relationship to Insured Coverage Start Date Coverage End Date MEDICARE OF [place] [address] [place] [address] [id number] PATITO BUSTILLO Self - patient is the insured [employer] ATT[employer] CLAIMS [address] [place] [address] [id number] PATITO BUSTILLO Self - patient is the insured Medical (General) History Medical History History ICD Code Larger tubular adenoma with dysplasia re moved in 11/2008 from [facility] Colonoscopy 07-06-2009--small tubular cristina nomas Hyperlipidemia EGD in 11/2008 with a small HH and gastri tis-neg. H. pylori COPD/pneumonia Denies ID,CVA,renal disease HTN Asymptomatic gallstones-this had been reviewed with him on his previous office visit in August,---he had subsequent gallstone pancreatitis and cholecystectomy as below Upper endoscopy in August with a finding of a fibrotic distal esophageal stricture that was dilated successfully with balloons Colonoscopy in August of 2012 with removal of small tubular adenomas Atrial flutter/Atrial fib--sees Dr. Hazel watters [facility] Colonoscopy 06/2016-small tubular adenoma s Gallstone pancreatitis [...]
--- OUTSIDE RECORDS SUMMARY | 2024-07-11 09:17 | XMS_ITS ---
Author Organization [facility] Address [address] [place] [address] Care Team Providers Care Price Accuracy Supervisor Name Role Phone Jordan Gabriel MD Primary Care Provider Patito Carpenter Unavailable [phone] REASON FOR VISIT frequent regurgitation Encounters Encounter Location Date Provider Diagnosis [facility] Este[facility] [address] [place] [address] 06/01/2024 Patito Andrews Plan Of Treatment Next Appt Details Provider Name:Patito Andrews , 07/23/2024 02:20:00 PM, [address] [place] [address] , [place], [place], [phone], Progress Notes * PATITO BUSTILLO CDOB:1939 (84 yo M)Acc No.[id number]:06/01/2024 Patient:?PATITO BUSTILLO :1940???Age:84 Y???Sex:Male Address:[address] [place] [address] * true * Date:? Generated for Earlinei adriano/Isaac/eTransmitting on:?07/11/2024 09:16 AM EDT
--- OUTSIDE RECORDS SUMMARY | 2024-07-11 09:18 | XMS_ITS | Patient Health Record ---
Author Organization Jordan Gabriel MD Address [address] [place] [phone] Care Team Providers Care Mechanic Sound Technician Name Role Phone Jordan Gabriel Primary Care Provider Allergies No Known Allergies Results Component Value Reference Range Notes Complete Blood Count Auto Di ff Reviewed date:11/08/2023 12:23:45 PM Interpretation: Performing Lab:[facility], [address] [place] [phone] Notes/Report: White Blood Count 7.3 4.8-10.8 X10*3/uL [...] NRBC Abs Auto 0.000 0.0-0.012 X10*3/uL Comprehensive [place]. Panel Fa st Reviewed date:11/15/2023 10:48:59 AM Interpretation:BING 11/14 Performing Lab:[facility], [address] [place] [phone] Notes/Report: Sodium 141 135-145 mmol/L Potassium 5.3 3.3-5.1 mmol/L Chloride 110 96-108 mmol/L Carbon Dioxide 25 22-29 mmol/L Anion Gap 11 12-20 Blood Urea Nitrogen 27 9-16 mg/dL Creatinine 1.45 0.5-1.4 mg/dL Estimated Glomerular Filt Rate 47 NOTE: For -Surinamese individuals, multiply the result by 1.210. Chronic [...] PROFILE Reviewed date:11/08/2023 12:10:33 PM Interpretation: Performing Lab:[facility], [address] [place] [phone] Notes/Report: Iron 36 45-160 mcg/dL Total Iron Binding Capacity 234 228-428 mcg/dL Percent Iron Saturation 15 15-50 % Unsaturated Iron Binding 198 Lipid Panel Reviewed date:11/08/2023 12:09:57 PM Interpretation: Performing Lab:[facility], [address] [place] [phone] Notes/Report: Triglycerides 66 <150 mg/dL Desirable Triglyceride: [...] (Free>4and<10) Reviewed date:11/08/2023 12:10:13 PM Interpretation: Performing Lab:[facility], [address] [place] [phone] Notes/Report: PSA,Total (Free>4and<10) 2.03 0.00-4.00 ng/mL A [...] Random Reviewed date:11/08/2023 12:20:08 PM Interpretation: Performing Lab:[address] [phone] Notes/Report: Creatinine Urine 62.41 Microalbumin Urine 22.0 Microalbum/Creatinine Ratio Ur 35.2 <30 ug/mg cr Albumin/Creatinine Ratio Reference Ranges: Normal: < 30 ug/mg creatinine Microalbuminuria: 30 - 300 ug/mg creatinine Clinical Albuminuria: > 300 ug/mg creatinine Hemoglobin A1c Reviewed date:11/08/2023 12:14:45 PM Interpretation: Performing Lab:[address] [phone] Notes/Report: Hemoglobin A1c % 5.8 <6.0 % [...] average glucose, using the formula of the D6Z-Bcpiyfr Average Glucose study (ADAG), Diabetes Care, Vol.31,#8, 2007 UA ClnCatch+Micro w/rflx Cul t Reviewed date:11/10/2023 06:33:03 PM Interpretation: Performing Lab:[facility], [address] [place] [phone] Notes/Report: Urine, Clean Catch Color Urine Yellow Appearance Urine Clear PH 5.5 5.0-9.0 Glucose Urine UA Negative Negative mg/dL Urine Blood Negative Negative Specific Dickinson - Urine 1.015 1.005-1.025 Urine Protein Negative Neg-Trace mg/dL Urine Ketones Negative Negative mg/dL Nitrite Urine Negative Negative Leukocyte Esterase Urine Trace Negative RBC Urine 0-2 0-2 /HPF WBC Urine 0-5 0-5 /HPF Squamous Epithelial Cell Urine 0-2 0-2 /HPF Bacteria Urine None Seen None Seen Hyaline Casts Urine 0-2 0-2 /LPF Potassium Reviewed date:12/16/2023 12:34:18 PM Interpretation: Performing Lab:[facility], [address] [place] [phone] Notes/Report: Potassium 4.6 3.3-5.1 mmol/L Liver Panel Reviewed date:05/12/2024 04:52:54 PM Interpretation: Performing Lab:[facility], [address] [place] [phone] Notes/Report: Bilirubin Total 0.5 0.0-1.0 mg/dL Bilirubin Direct 0.2 0.0-0.5 mg/dL Aspartate Amino Transferase 28 5-37 U/L Alanine Aminotransferase 18 0-40 U/L Total Protein 7.1 6.5-8.0 g/dL Albumin Level 4.0 3.5-5.0 g/dL Alkaline Phosphatase 72 39-117 U/L Glucose Fasting Reviewed date:05/12/2024 04:53:04 PM Interpretation: Performing Lab:[facility], [address] [place] [phone] Notes/Report: Glucose Fasting 95 60-99 mg/dL Lipid Panel with Reflex Reviewed date:05/12/2024 04:53:13 PM Interpretation: Performing Lab:[facility], [address] [place] [phone] Notes/Report: Triglycerides 71 <150 mg/dL Desirable Triglyceride: [...] A1c Reviewed date:05/12/2024 12:07:37 PM Interpretation: Performing Lab:[facility], [address] [place] [phone] Notes/Report: Hemoglobin A1c % 6.0 <6.0 % [...] average glucose, using the formula of the Y2S-Zkyotws Average Glucose study (ADAG), Diabetes Care, Vol.31,#8, Oct. 2007 Complete Blood Count Auto Di ff Reviewed date:07/19/2023 07:43:44 PM Interpretation: Performing Lab:[facility], [address] [place] [phone] Notes/Report: White Blood Count 7.3 4.8-10.8 X10*3/uL [...] A1c Reviewed date:07/19/2023 07:29:49 PM Interpretation: Performing Lab:[facility], [address] [place] [phone] Notes/Report: Hemoglobin A1c % 6.0 <6.0 % [...] average glucose, using the formula of the N8D-Itfqona Average Glucose study (ADAG), Diabetes Care, Vol.31,#8, 2007 Electrocardiogram (EKG) Reviewed date:07/19/2023 01:28:35 PM Interpretation: Performing Lab: Notes/Report: Occult Blood, Stool, Guaiac Reviewed date:11/15/2023 10:41:32 AM Interpretation:Negative Performing Lab: Notes/Report: Negative Occult Blood, Stool, Guaiac Neg XR chest 2V Reviewed date:08/01/2023 12:46:12 PM Interpretation: Performing Lab: Notes/Report: [address] [address] XRay Report Signed Patient: Anthony Goodman MR#: [id number] : 1940 Acct:[id number] Age/Sex: 83 / M ADM Date: 07/31/23 Loc: CINDA Attending Dr: Jordan Gabriel MD Ordering Physician: Jordan Gabriel MD Date of Service: 07/31/23 Procedure(s): XR chest 2V Accession Number(s): [id number] cc: Jordan Gabriel MD EXAMINATION: XR CHEST [...] MD in OV> 07/31/23837 DD/ 9 TD/TT: Stock Broker: [place] [address] XRay Report Signed Patient: Angelia Goodman Sr MR#: [id number] : 1940 Acct:[id number] Age/Sex: 83 / M ADM Date: 07/31/23 Loc: CINDA Attending Dr: Jordan Gabriel MD Ordering Physician: Jordan Gabriel MD Date of Service: 07/31/23 Procedure(s): XR [facility] 2V Accession Number(s): [id number] cc: Jordan Gabriel MD EXAMINATION: XR CHEST [...] MD in OV> 07/31/23837 DD/ 9 TD/TT: Stock Broker: El Sandra. Panel Fa st Reviewed date:07/19/2023 07:42:56 PM Interpretation: Performing Lab:[facility], [address] [place] [phone] Notes/Report: Sodium 140 135-145 mmol/L Potassium 5.2 3.3-5.1 mmol/L Chloride 106 96-108 mmol/L Carbon Dioxide 24 22-29 mmol/L Anion Gap 15 12-20 Blood Urea Nitrogen 26 9-16 mg/dL Creatinine 1.52 0.5-1.4 mg/dL Estimated Glomerular Filt Rate 44 NOTE: For -Surinamese individuals, multiply the result by 1.210. Chronic [...] Gold Reviewed date:07/19/2023 05:15:53 PM Interpretation: Performing Lab:[facility], [address] [place] [phone] Notes/Report: Hold Gold See Note Specimen held untested for 24 hours; Call to request Chemistry testing. CT chest wo con Reviewed date:08/29/2023 01:10:58 PM Interpretation: Performing Lab: Notes/Report: [place] [address] [address] Scan Report Signed with Addenda Patient: Anthony Goodman Sr MR#: [id number] : 1940 Acct:[id number] Age/Sex: 83 / M ADM Date: 08/13/23 Loc: HO.CT Attending Dr: Jannet Evans NP Ordering Physician: JANNET EVANS NP Date of Service: 08/13/23 Procedure(s): CT chest wo IV con Accession Number(s): [id number] cc: JANNET EVANS ARCHEOLOGIST CLASSICAL; Jordan Gabriel MD ADDENDUM Addendum: Findings discussed [...] iterative reconstruction technique DLP: 182 mGy-cm FINDINGS: SOFTWARE TOOLS DEVELOPER: Patient is status post median sternotomy LUNGS: [...] in OV> 08/26/23 1631 DD/ 0800 TD/TT: Stock Broker: [address] [address] [address] Scan Report Signed with Addenda Patient: Angelia Goodman Sr MR#: [id number] : 1940 Acct:[id number] Age/Sex: 83 / M ADM Date: 08/13/23 Loc: HO.CT Attending Dr: Jannet Evans NP Ordering Physician: JANNET EVANS NP Date of Service: 08/13/23 Procedure(s): CT [facility] wo IV con Accession Number(s): [id number] cc: JANNET EVANS ARCHEOLOGIST CLASSICAL ; Jordan Gabriel MD ADDENDUM Addendum: Findings [...] iterative reconstruction technique DLP: 182 mGy-cm FINDINGS: SOFTWARE TOOLS DEVELOPER: Patient is st atus post median sternotomy [...] in OV> 08/26/23 1631 DD/ 0800 TD/TT: Stock Broker: Glucose, Whole Blood Reviewed date:08/15/2023 12:25:41 PM Interpretation: Performing Lab:[facility], [address] [place] [phone] Notes/Report: Glucose, Whole Blood 100 60-115 mg/dL METER # : [id number] FL guidance in OR Reviewed date:10/12/2023 04:21:37 PM Interpretation: Performing Lab: Notes/Report: [address] [address] Fluoroscopy Report Signed Patient: Anthony Goodman Sr MR#: [id number] : 1940 Acct:[id number] Age/Sex: 83 / M ADM Date: 08/15/23 Loc: HO.SSS Attending Dr: Artemio Martines MD, PhD Ordering Physician: Artemio Martines MD, PhD Date of Service: 08/15/23 Procedure(s): FL guidance in OR Accession Number(s): [id number] cc: Jordan Gabriel MD; Artemio Martines MD, [...] Dr. Brian Martines's report for complete details. FL/FL guidance in OR IMPRESSION: Intraoperative fluoroscopy and spot films were obtained. Please see Dr. Brian Martines's report for complete details. Dictated By: Leonard Lancaster MD Signed By: <Electronically signed by Leonard Lancaster MD in OV> 10/12/23654 DD/ 4 TD/TT: Stock Broker: [place] [address] Fluoroscopy Report Signed Patient: Angelia Goodman Sr MR#: [id number] : 1940 Acct:[id number] Age/Sex: 83 / M ADM Date: 08/15/23 Loc: HO[facility] Attending Dr: Kit Martines MD, PhD Ordering Physician: Aretmio Martines MD, PhD Date of Service: 08/15/23 Procedure(s): FL guidance in OR Accession Number(s): [id number] cc: Jordan Gabriel MD; Artemio Martines MD, [...] in OV> 10/12/23 0655 DD/ 0925 TD/TT: Precision Jig Grinder ist: SS FL upper GI w air Reviewed date:09/24/2023 10:32:48 AM Interpretation:see back 09-24-2023 Performing Lab: Notes/Report: [address] [address] Fluoroscopy Report Signed Patient: Anthony Goodman Sr MR#: [id number] : 1940 Acct:[id number] Age/Sex: 83 / M ADM Date: 09/12/23 Loc: HO.XRAY Attending Dr: Jordan Gabriel MD Ordering Physician: Jordan Gabriel MD Date of Service: 09/12/23 Procedure(s): FL upper GI w air Accession Number(s): [id number] cc: Jordan Gabriel MD EXAMINATION: XR FLUOROSCOPY [...] in OV> 09/13/23 1826 DD/ 1043 TD/TT: Stock Broker: [address] [address] Fluoroscopy Report Signed Patient: Angelia Goodman Sr MR#: [id number] : 1940 Acct:[id number] Age/Sex: 83 / M ADM Date: 09/12/23 Loc: HO.XRAY Attending Dr: Jordan Gabriel MD Ordering Physician: Jordan Gabriel MD Date of Service: 09/12/23 Procedure(s): FL upp er GI w air Accession Number(s): [id number] cc: Jordan Gabriel MD EXAMINATION: XR FLUOROSCOPY [...] MD in OV> 09/13/231825 DD/ 1043 TD/TT: Stock Broker: Creatinine GFR POC Reviewed date:10/09/2023 02:07:02 PM Interpretation: Performing Lab:[facility], [address] [place] [phone] Notes/Report: [id number] [phone] 1.0 1.0 >60 >60 1550 1550 IMELDA [...] date:10/24/2023 12:56:33 PM Interpretation: Performing Lab: Notes/Report: [address] [address] [address] Scan Report Signed Patient: Anthony Goodman MR#: [id number] : 1940 Acct:[id number] Age/Sex: 83 / M ADM Date: 10/08/23 Loc: HO.CT Attending Dr: Jannet Evans NP Ordering Physician: JANNET EVANS NP Date of Service: 10/08/23 Procedure(s): CT chest w IV con Accession Number(s): [id number] cc: JANNET EVANS NP; Jordan Gabriel MD [...] in OV> 10/24/23 0848 DD/ 1618 TD/TT: Stock Broker: [place] [address] CT Scan Report Signed Patient: Angelia Goodman MR#: [id number] : 1940 Acct:[id number] Age/Sex: 83 / M ADM Date: 10/08/23 Loc: HO.CT Attending Dr: Jannet Evans NP Ordering Physician: JANNET EVANS NP Date of Service: 10/08/23 Procedure(s): CT [facility] w IV con Accession Number(s): [id number] cc: JANNET EVANS NP ; Jordan Gabriel [...] in OV> 10/24/23 0848 DD/ 1618 TD/TT: Precision Jig Grinder ist: PD Creatinine GFR POC Reviewed date:10/09/2023 02:07:12 PM Interpretation: Performing Lab:[facility], [address] [place] [phone] Notes/Report: [id number] 1.30 56 1550 HOMARGI Creatinine POC 1.3 0.5-1.4 mg/dL GFR POC 56 Chronic Kidney Disease: Estimated GFR < 60 mL/min/1.73m2 Severe Kidney Disease: Estimated GFR < 15 mL/min/1.73m2 Complete Blood Count no Diff Reviewed date:02/04/2024 01:50:25 PM Interpretation: Performing Lab:[facility], [address] [place] [phone] Notes/Report: White Blood Count 7.2 4.8-10.8 X10*3/uL [...] Panel Reviewed date:02/04/2024 01:50:04 PM Interpretation: Performing Lab:[address] [address] Notes/Report: Sodium 138 135-145 mmol/L Potassium 4.9 [...] Ferritin Reviewed date:02/04/2024 12:53:47 PM Interpretation: Performing Lab:[facility], [address] [place] [phone] Notes/Report: Ferritin 21 20-250 ng/mL Lactate Dehydrogenase Reviewed date:02/04/2024 12:50:52 PM Interpretation: Performing Lab:[facility], [address] [place] [phone] Notes/Report: Lactate Dehydrogenase 155 118-273 U/L Complete Blood Count Auto Di ff Reviewed date:04/07/2024 05:05:38 PM Interpretation: Performing Lab:[address] [address] Notes/Report: White Blood Count 7.3 4.8-10.8 X10*3/uL [...] Ferritin Reviewed date:04/07/2024 04:41:39 PM Interpretation: Performing Lab:[facility], [address] [place] [phone] Notes/Report: Ferritin 30 20-250 ng/mL Lactate Dehydrogenase Reviewed date:04/07/2024 05:05:11 PM Interpretation: Performing Lab:[facility], [address] [place] [phone] Notes/Report: Lactate Dehydrogenase 165 118-273 U/L Aimee Danielle Reviewed date:05/12/2024 12:08:08 PM Interpretation: Performing Lab:[facility], [address] [place] [phone] Notes/Report: Aimee Danielle See Note Specimen held untested for 24 hours; Call to request Chemistry testing. CT chest wo con Reviewed date:05/14/2024 08:55:12 AM Interpretation: Performing Lab: Notes/Report: [address] [address] [address] Scan Report Signed Patient: Anthony Goodman Sr MR#: [id number] : 1940 Acct:[id number] Age/Sex: 84 / M ADM Date: 05/13/24 Loc: HO.CT Attending Dr: Jannet Evans NP Ordering Physician: JANNET EVANS NP Date of Service: 05/13/24 Procedure(s): CT chest wo IV con Accession Number(s): [id number] cc: JANNET EVANS NP; Jordan Gabriel MD Report Number: [id number]: Total DLP = 168.00 mGy-cm EXAMINATION: CT [...] 05/13/24 1142 DD/ 1109 TD/TT: 05/13/24 1119 Stock Broker: [address] [address] [address] Scan Report Signed Patient: Angelia Goodman Sr MR#: [id number] : 1940 Acct:[id number] Age/Sex: 84 / M ADM Date: 05/13/24 Loc: HO.CT Attending Dr: Jannet Evans NP Ordering Physician: JANNET EVANS NP Date of Service: 05/13/24 Procedure(s): CT [facility] wo IV con Accession Number(s): [id number] cc: JANNET EVANS NP ; Jordan Gabriel MD Report Number: [id number]: Total DLP = 168.00 mGy-cm EXAMINATION: CT [...] by: Oseas Wallace MD 05/13/2024 11:42 AM [facility] [place]ictated By: Oseas Wallace MD Signed By: <Electronically signed by Oseas Wallace MD in OV> 05/13/24 1142 DD/ 1109 TD/TT: 05/13/24 1119 Stock Broker: Complete Blood Count no Diff Reviewed date:07/07/2024 11:32:23 AM Interpretation: Performing Lab:[facility], [address] [place] [phone] Notes/Report: White Blood Count 6.7 4.8-10.8 X10*3/uL Red Blood Count 3.35 4.60-5.80 X10*6/uL Hemoglobin 9.7 14.0-18.0 g/dl Hematocrit 30.0 42.0-52.0 % Mean Corpuscular Volume 89.6 80.0-98.0 fL Mean Corpuscular Hemoglobin 29.0 27.0-33.0 pg Mean Corpuscular HGB Conc 32.3 31.0-36.0 g/dl Red Cell Distribution Width 14.4 11.0-16.0 % Platelet Count 241 160-400 X10*3/uL Mean Platelet Volume 9.8 9.4-12.4 fL NRBC Pct Auto 0.0 0.0-0.2 /100WBC NRBC Abs Auto 0.000 0.0-0.012 X10*3/uL Comprehensive Met. Panel Reviewed date:07/07/2024 11:32:43 AM Interpretation: Performing Lab:[facility], [address] [place] [phone] Notes/Report: Sodium 138 135-145 mmol/L Potassium 4.6 3.3-5.1 mmol/L Chloride 109 96-108 mmol/L Carbon Dioxide 23 22-29 mmol/L Anion Gap 11 12-20 Blood Urea Nitrogen 22 9-16 mg/dL Creatinine 1.24 0.5-1.4 mg/dL Creatinine Clr Calc Pharmacy 51.9 eGFR (calculated from the MDRD study equation) and eCrCl (calculated from the Cockcroft-Gault equation) are based on different parameters and may not yield comparable results. If eCrCl result is absurd, please check patient's height/weight. Estimated Glomerular Filt Rate 56 Chronic Kidney Disease: Estimated GFR < 60 mL/min/1.73m2 Severe Kidney Disease: Estimated GFR < 15 mL/min/1.73m2 Glucose Random 135 60-115 mg/dL Calcium 9.1 8.4-10.2 mg/dL Bilirubin Total 0.4 0.0-1.0 mg/dL Aspartate Amino Transferase 25 5-37 U/L Alanine Aminotransferase 21 0-40 U/L Total Protein 6.5 6.5-8.0 g/dL Albumin Level 3.9 3.5-5.0 g/dL Alkaline Phosphatase 76 39-117 U/L Ferritin Reviewed date:07/07/2024 11:31:21 AM Interpretation: Performing Lab:[facility], [address] [place] [phone] Notes/Report: Ferritin 45 20-250 ng/mL Reason For Referral Reason please frederick tovar [...] Notes Start Date End Date Status Nystatin 729526 UNIT/GM 1 application Externally Twice a day for 14 days 04/28/2019 Active metFORMIN HCl 500 MG TAKE 1 TABLET BY [facility] TWICE A DAY WITH MEALS for [...] Flu Vaccine Unknown 01/10/2012 Administered given at [facility] PPSV23 (Pnemovax) Unknown 01/10/2012 Administered given at [facility] Flu Vaccine Unknown 01/07/2014 Administered Flu Vaccine Unknown 12/31/2013 Administered received at [facility] Prevnar 13 IM Intramuscular 08/20/2014 Administered Flu Vaccine IM Intramuscular 12/22/2014 Administered pt re cieved high dose flu vaccine at [facility] in [place], Fluarix Quadrivalent Unknown 12/21/2015 Administered [facility] Shingles Unknown 01/26/2015 Administered [facility] Fluarix Quadrivalent IM Intramuscular 12/06/2016 Adminvidya pearl PPSV23 (Pnemovax) IM Intramuscular 04/15/2017 Administered Influenza High Dose Unknown 12/17/2017 Administered [facility] Fluarix Quadrivalent IM Intramuscular 12/19/2018 Adminvidya pearl pt was given the vaccine at [facility] in [place]. 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) Active confirmed Problem Chronic obstructive pulmonary disease with acute lower respiratory infection (694491532) COPD (chronic obstructive pulmonary disease) with acute bronchitis (J44.0) Active confirmed Problem 26983663 Iron deficiency anemia, unspecified iron deficiency anemia type (D50.9) Active confirmed Problem Claudication (45828325) Claudication (I73.9) Active confirmed Problem 374933974 Adenoma (D36.9) Active confirmed Problem 3813449317385175 Acute idiopathi c gout involving toe of left foot (M10.072) Active confirmed Problem 63031177 Lymphadenopathy, mediastinal (R59.0) Active confirmed Problem 634433245 Rising PSA level (R97.20) Active confirmed Problem 131387303 History of calcu leonard of gallbladder (Z87.19) Active confirmed Problem 434820399 Pure hypercholesterolemia (E78.00) Active confirmed Problem Gout (22997097) Acute gout of le ft foot, unspecified cause (M10.9) Active confirmed Problem 26232659 Hip arthritis (M16.10) Active confirme d Problem 059973544 Adenocarcinoma o f lung, 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) Active confirmed Problem 544404049 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 Problem 536890821 Esophageal dysfu nction (K22.4) Active confirmed Problem 738842249 Lower esophageal ring (Schatzki) (K22.2) Active confirmed Vital Signs Blood pressure diastolic 60 mm Hg 05/19/2024 Height 71 in 05/19/2024 Blood pressure systolic 142 mm Hg 05/19/2024 Weight 206 lbs 05/19/2024 BMI 28.73 kg/m2 05/19/2024 Encounters Encounter Location Date Provider Diagnosis Jordan Gabriel MD [address] [place] [address] [id number] 11/08/2023 Jordan Gabriel Type 2 diabetes mina itus without complications E11.9 ; Pure hypercholesterolemia E78.00 ; Iron deficiency anemia, unspecified iron deficiency anemia type D50.9 and Essential hypertension I10 Jordan Gabriel MD [address] [place] [address] [id number] 12/09/2023 Jordan Gabriel Encounter for immuni zation Z23 Jordan Gabriel MD [address] [place] [address] [id number] 12/16/2023 Jordan Gabriel Chronic hyperkalemia E87.5 Jordan Gabriel MD [address] [place] [address] [id number] 05/12/2024 Jordan Gabriel Type 2 diabetes mina itus without complications E11.9 and Pure hypercholesterolemia E78.00 Jordan Gabriel MD [address] [place] [address] [id number] 07/19/2023 Jordan Gabriel Preop testing Z01.81 8 and Esophageal dysphagia R13.19 Jordan Gabriel MD [address] [place] [address] [id number] 07/25/2023 Jordan Gabriel Paroxysmal atrial fibrillation I48.0 Jordan Gabriel MD [address] [place] [address] [id number] 09/24/2023 Jordan Gabriel Lower esophageal rin g (Cain) K22.2 and Esophageal dysfunction K22.4 Jordan Gabriel MD [address] [place] [address] [id number] 11/15/2023 Jordan Gabriel Chronic hyperkalemia E87.5 ; [...] Jordan Gabriel MD [address] [place] [address] [id number] 05/19/2024 Jordan Gabriel Encounter for genera l adult medical examination with abnormal findings Z00.01 ; Esophageal dysfunction K22.4 ; Pure hypercholesterolemia E78.00 and Type 2 diabetes mellitus without complications E11.9 Jordan Gabriel MD [address] [place] [address] [id number] 07/30/2023 Jordan Gabriel MD [address] [place] [address] [id number] 07/30/2023 Jordan Gabriel Cough R05.9 and Fati louise R53.83 Jordan Gabriel MD [address] [place] [address] [id number] 08/15/2023 Jordan Gabriel MD [address] [place] [address] [id number] 09/06/2023 Jordan Gabriel MD [address] [place] [address] [id number] 10/24/2023 Jordan Gabriel Adenocarcinoma of caitlyn ng, left C34.92 Jordan Gabriel MD [address] [place] [address] [id number] 12/10/2023 Jordan Gabriel 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 Assessments Encounter [...] ORDER HAS BEEN FAXED TO [facility] AT [facility] , TEST SCHEDULED FOR SEPTEMBER 11 @ 10 AM, PATIENT INFORMED 07/25/2023 Paroxysmal atrial fibrillation (ICD-10 - I48.0) hold atorvastin for 2 weeks, patient verbalized understanding of medication and directions for use 09/24/2023 Lower esophageal rin g (Amandaki) (ICD-10 - K22.2) discussed findings of UGI [...] - R05.9) order made and faxed to Pat Wilian Patient notified. 11/08/2023 Essential hypertensi on (ICD-10 [...] 08/30/2020 Next Appt Details Provider Name:Jordan Cyr ed, 11/10/2024 08:00:00 AM, [address] [place] [address], [address], [phone], Provider Name:Jordan Cyr ier, 11/17/2024 10:30:00 AM, [address] [place] [address], [place] [address], [place], [place], [phone], Provider Name:Jordan Cyr ier, 05/21/2025 01:45:00 PM, [address] [place] [address], [place] [address], [place], [place], [phone], Insurance Providers Payer Name Payer Address Payer Phone Subscriber Number Group Number Insured Name Patient Relationship to Insured Coverage Start Date Coverage End Date [employer] [address] [place] [address] [id number] Anthony Goodman Self - patient is the insured [employer] BLUE [employer]IELD [address] [place], [place] [id number] [phone] [id number] Anthony Goodman Self - patient is the insured Medical (General) History Medical History History ICD Code HAS ENLARGED LYMPH NODE IN P ANIBAL ESOPH AREA. had repeat ct of chest 2012 and no change COLONOSCOPY 09/08/12 - repeat in 3 years; colonoscopy done 07/03/16 w/Dr. Curry - probably uwon't need another upper and lower endo 12/13 cancer of larynx 2007 surgery and radiat ion hematuria work up [address]sto dr pate/repeat Cystoscopy by Dr. 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
--- OUTSIDE RECORDS SUMMARY | 2024-07-11 09:18 | XMS_ITS ---
Author Organization Jordan Gabriel MD Address [address] [place] [phone] Care Team Providers Care Programs Manager Name Role Phone Jordan Gabriel Primary Care Provider Results Component Value Reference Range Notes Potassium Reviewed date:12/16/2023 12:34:18 PM Interpretation: Performing Lab:[facility], [address] [place] [phone] Notes/Report: Potassium 4.6 3.3-5.1 mmol/L REASON FOR VISIT POTASSIUM Encounters Encounter Location Date Provider Diagnosis Jordan Gabriel MD [address] [place] [phone] 12/16/2023 Jordan Gabriel Chronic hyperkalemia E87.5 Assessments Encounter Date Diagnosis (ICD Code) Assessment Notes Treatment Notes Treatment Clinical Notes Section Notes 12/16/2023 Chronic hyperkalemia (ICD-10 - E87.5) Plan Of Treatment Next Appt Details Provider Name:Jordan Cyr ier, 11/10/2024 08:00:00 AM, [address], [address], [place], [place], [phone], Provider Name:Jordan Eric Klarissa ier, 11/17/2024 10:30:00 AM, [address], [address], [place], [phone], Provider Name:Jordanfarzad Cyr ier, 05/21/2025 01:45:00 PM, [address] [facility], [address], [place], [place], [phone], Progress Notes * Anthony GOODMAN CDOB:1939 (84 yo M)Acc No.[id number]:12/16/2023 Progress Note Patient:?Anthony GOODMAN C Provider:?Jordan Gabriel MD :1940???Age:83 Y???Sex:Male Keron e:12/16/2023 Address:[address] [place], [place] [address]jose [id number] Subjective: * Chief Complaints: * ???1. POTASSIUM. * Medical History:? Objective: * Vitals:? Assessment: * Assessment: 1.?Chronic hyperkalemia - E8 7.5 (Primary)??? Plan: * Treatment: * Procedure Codes:?19096 VENIP UNCT, ROUTINE* * * The named appointment provid er may or may not be the originator of this progress note, and it is not deemed complete until electronically signed by the appointment provider. Sign off status: Pending * Provider:?Jordan Gabriel MD Date:?0 12/16/2023 Generated for Earlinei adriano/Isaac/eTransmitting on:?07/11/2024 09:17 AM EDT
[2024-07-11 09:21] VITALS: BP 140/60; PULSE 76; RESP 17; TEMP 37.1; O2SAT 92; BMI 26.6
--- NOTE | 2024-07-11 09:21 | AM.OFFWIN_ITS ---
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 He has a history of pneumonia, as well as COPD, and multiple comorbidities including coronary artery disease, peripheral vascular disease, diastolic dysfunction and hypertension and diabetes. He reports that he started with upper respiratory infection about a week and a half ago, and now feels congestion in his chest, with frequent cough that is only occasionally productive. He has some associated fatigue and shortness of breath, however he denies chest pain, bloody cough, weakness or dizziness, fever chills, nausea vomiting or diarrhea, myalgias or malaise, headache, or other significant associated symptoms. [facility] Medical History Atrial fibrillation and flutter Arthritis Hiatal hernia COVID-19 On anticoagulant therapy History of blood transfusion Severe sepsis Gallstone pancreatitis GARTH (acute kidney injury) PVD (peripheral vascular disease) History of cancer COPD (chronic obstructive pulmonary disease) GERD (gastroesophageal reflux disease) Hyperlipidemia Diabetes mellitus HTN (hypertension) Paroxysmal atrial fibrillation CAD (coronary artery disease) Surgical History History of surgery on wrist Hx of spinal surgery History of esophagogastroduodenoscopy (EGD) H/O colonoscopy H/O excision of mass History of excision of lesion History of laparoscopic cholecystectomy History of arthroplasty of left hip History of lobectomy of lung H/O heart surgery Social History Household Members: Spouse Housing: House Are you a primary wound care technician to a significant other at home: No Do you presently have visiting nurse or other home services: No Alcohol intake: former Patient Tobacco Use Status: Former Tobacco user Tobacco use type: Cigarette Cigarette Packs Per Day: 1 Have you been hit, kicked, punched, or otherwise hurt by someone within the past year? 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 Review of Systems Const All systems reviewed & are unremarkable except as noted in HPI and below Physical Exam Vital Signs: Last Vital Signs Temp 98.8 F 07/11/24 09:21 Pulse 76 07/11/24 09:21 Resp 17 07/11/24 09:21 BP 140/60 H 07/11/24 09:21 Pulse Ox 92 07/11/24 09:21 Oxygen Delivery Method Room Air 07/11/24 09:21 BMI result Body Mass Index 26.6 Assessment & Plan Assessment & Plan (1) Lower respiratory infection: Code(s): J22 - Unspecified acute lower respiratory infection Plan Patient is a an 84-year-old male with COPD and history of pneumonia, who has other multiple comorbidities and comes to the walk-in clinic with symptoms consistent of COPD exacerbation. He had started with upper respiratory infection about a week and a half ago, and now seems to be aggravating his COPD. He does not have much of a productive cough, as he finds it difficult to actually expectorate the phlegm, however he has rhonchorous on exam intermittently in scattered flores. He is not short of breath however his O2 sat is lower than his prior baseline, and he does complain of some fatigue. His chest x-ray does not seem to have any acute findings, in his flu COVID and RSV results are pending. I discussed with them that due to his extensive history, and with his current presentation safest place for him to be monitored and treated was at emergency room. They reported that he had similar symptoms in the past and he cleared with azithromycin prescribed by his primary care, so they request to trial that instead. As his chest x-ray today was unremarkable for acute changes, and he does not have fever or chest pain or current dyspnea, I did agree to start oral antibiotics however I advised that they keep a close eye on symptoms and if he worsens in the sinus bit, that he should go to the emergency department for further management over the weekend. They agree to this, so I did write him for azithromycin, along with benzonatate capsules. I also advised that they start hydrating at adequately and trial Mucinex to help with the phlegm production. They were hesitant to do this, as he had gotten dizzy with Mucinex in the past. However it sounded like he was not hydrating well at the time, and this was likely contributing to the dizziness. They agreed to follow up with primary care Dr. Darien Gabriel to monitor symptoms in the next week or so, and to go to the emergency department with worrisome symptoms as needed. Orders: Orders SARS-CoV2/FLU/RSV 07/11/24 J06.9 - Acute upper respiratory infection, unspecified XR chest 2V 07/11/24 R05.9 - Cough, unspecified Medications: New azithromycin take 500 mg today (day 1), then 250 mg for 4 days (days 2-5) PO 6 tabs 0RF benzonatate 100 mg PO BID-TID PRN 30 caps 0RF cough Coding Level of Care Code New Pt Level 4 (39061) Diagnoses Lower respiratory infection J22
== END 2024-07-11 10:55 | disposition home or self-care (01) ==
LOC: HO.HMCWIC 09:15
PROVIDERS: PCP Internal Medicine; Visit Provider Physician Assistant Medical
DX: J22 Unspecified acute lower respiratory infection (principal)

== ENCOUNTER → 2024-07-11 10:14 | Outpatient (BNV) | payer MEDICARE, SELFPAY | PROVIDERS: PCP Internal Medicine; Visit Provider Specialist | DX: R07.9 Chest pain, unspecified (principal) | CPT/HCPCS: 71046 ==

== ENCOUNTER 2024-07-17 09:47 | Outpatient (AMB) | payer MEDICARE, SELFPAY ==
[2024-07-17 10:55] VITALS: BP 128/70; PULSE 74; O2SAT 98
--- NOTE | 2024-07-17 10:55 | AM.OFFWIN_ITS ---
Intake Vital Signs 07/17/24 10:55 Weight 198 lb BP 128/70 Blood Pressure Location Rt brachial Position Sitting Pulse 74 Pulse Source Pulse Oximeter Pulse Oximetry (%) 98 Oxygen Delivery Method Room Air Intake Visit Reasons: EP RT foot pain, swelling Intake Note: Patient here for right foot swelling that started Saturday. Patient Tobacco Use Status: Former Tobacco user Allergies No Known Allergies Allergy (Verified 07/17/24 10:56) Do you need a note to return to daycare/school/sports/work: No HPI EP RT foot pain, swelling HPI Details Patient presents to the walk-in clinic today for pain and redness on the top of his right foot since this past Saturday. He has tried icing area without significant relief. He states it is painful on the top of his foot to walk. Denies any trauma or injury to area. States that he has had gout previously in the right great toe, and this feels similar. [facility] Medical History Paroxysmal atrial fibrillation Arthritis Hiatal hernia COVID-19 On anticoagulant therapy History of blood transfusion Severe sepsis Gallstone pancreatitis GARTH (acute kidney injury) PVD (peripheral vascular disease) History of cancer COPD (chronic obstructive pulmonary disease) GERD (gastroesophageal reflux disease) Hyperlipidemia Diabetes mellitus HTN (hypertension) CAD (coronary artery disease) Surgical History H/O colonoscopy H/O excision of mass History of excision of lesion History of laparoscopic cholecystectomy History of arthroplasty of left hip History of lobectomy of lung H/O heart surgery Social History Household Members: Spouse Housing: House Are you a primary child care nurse to a significant other at home: No Do you presently have visiting nurse or other home services: No Alcohol intake: former Patient Tobacco Use Status: Former Tobacco user Tobacco use type: Cigarette Cigarette Packs Per Day: 1 service: Yes 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 Review of Systems Const All systems reviewed & are unremarkable except as noted in HPI and below Physical Exam Vital Signs: Last Vital Signs Pulse 74 07/17/24 10:55 BP 128/70 07/17/24 10:55 Pulse Ox 98 07/17/24 10:55 Oxygen Delivery Method Room Air 07/17/24 10:55 Const General: cooperative, healthy appearing and no acute distress HEENT Head: Yes normal to inspection Resp Effort & Inspection: normal respiratory effort Auscultation: clear to auscultation bilaterally Cardio Rate: regular rate Rhythm: regular rhythm Skin General skin exam: no rashes or lesions noted Extrem Other: erythema, tenderness to palp dorsal aspect right foot. Normal ROM ankle and toes. Normal cap refill. Normal sensation. Mild nonpitting edema right foot. Psych Appearance: grossly normal Mental Status: mental status grossly normal Speech and movement: Normal speech and movement present Assessment & Plan Assessment & Plan (1) Gout of right foot: Code(s): M10.9 - Gout, unspecified Qualifiers: Gout etiology: unspecified cause Chronicity: acute Qualified Code(s): M10.9 - Gout, unspecified Plan: Presentation is consistent with gout. Patient had flare several years ago, and did well with course of prednisone, which I have prescribed. We have reviewed the indications, use, possible side effects of medication. Advised Tylenol and ice as needed to area. If he does not improve with time and treatment, he can return to the clinic for follow-up, or to his PCP Dr. Gabriel at [facility]. All questions were answered and patient, as well as present at visit, verbalized understanding and agreed to plan. Medications: New prednisone Take two tablets by mouth daily for 5 days. 40 mg (2 x 20 mg) PO DAILY 5 days 10 tabs 0RF M10.9 - Gout, unspecified Coding Level of Care Code Est Pt Level 4 (86872) Diagnoses Acute gout of right foot, unspecified cause M10.9 Gout etiology: unspecified cause Chronicity: acute
== END 2024-07-17 11:26 | disposition home or self-care (01) ==
PROVIDERS: PCP Internal Medicine; Visit Provider Nurse Practitioner Family
DX: M10.9 Gout, unspecified (principal)

== ENCOUNTER → 2024-07-17 09:47 | Outpatient (BNVA) | payer MEDICARE, SELFPAY | PROVIDERS: PCP Internal Medicine; Visit Provider Nurse Practitioner Family | DX: M10.9 Gout, unspecified (principal) | CPT/HCPCS: 99212 ==

== ENCOUNTER 2024-07-23 12:07 | Day surgery (SDC) | payer MEDICARE, SELFPAY ==
--- OUTSIDE RECORDS SUMMARY | 2024-07-02 06:42 | XMS_ITS ---
Author Organization [facility] Address [address] [place] [address] Care Team Providers Care Back Joiner Name Role Phone Jordan Gabriel MD Primary Care Provider Patito Carpenter Unavailable [phone] REASON FOR VISIT frequent regurgitation Encounters Encounter Location Date Provider Diagnosis [facility] [address] [place] [address] 06/01/2024 Patito Andrews Plan Of Treatment Next Appt Details Provider Name:Patito Andrews , 07/23/2024 02:00:00 PM, [address] [place] [address] , [place], [place], [phone], Progress Notes * PATITO BUSTILLO CDOB:1939 (84 yo M)Acc No.[id number]:06/01/2024 Patient:?PATITO BUSTILLO :1940???Age:84 Y???Sex:Male Address:[address] [place] [address] * true * Date:? Generated for Earlinei adriano/Isaac/eTransmitting on:?07/02/2024 06:42 AM EDT
--- OUTSIDE RECORDS SUMMARY | 2024-07-02 06:42 | XMS_ITS | Patient Health Record ---
Author Organization [facility] Address [address] [place] [address] Care Team Providers Care Chemistry Instructor Name Role Phone Jordan Gabriel MD Primary Care Provider Patito Carpenter Unavailable [phone] Allergies No Known Allergies Reason For Referral No Information Medications Medication SIG (Take, Route, Frequency, Duration) Notes Start Date End Date Status Vitamin B-12 100 MCG as directed Orally Active Omeprazole 20MG RX TAKE 1 CAPSULE DAILY for 90 Active metFORMIN HCl 500 MG 1 tablet with meals Orally Twice a day Active Calcium + D 315-200 MG-UNIT 1 tablet wit h meals Orally Twice a day Active Vitamin D3 1000 UNIT 1 tablet Orally Onc e a day Active Atorvastatin Calcium 80 MG 1 tablet Oral ly Once a day Active Iron (Ferrous Sulfate) 325 (65 Fe) MG 1 tablet Orally BID Active Lisinopril-hydroCHLOROthiaz godwin Active Xarelto 10 MG 1 tablet Orally Once a day Active Omeprazole 20MG TAKE 1 CAPSULE DAILY for 90 Active Multi Vitamin/Minerals 1 1 tablet Orally once a day Active Immunizations Vaccine Route Administration Date Status Comme nts Flu vaccine no Preserv 3 and > Unknown 11/24/2015 Admin istered Influenza Unknown 11/24/2019 Administered Influenza Unknown 11/23/2020 Administered Influenza Unknown 01/07/2024 Administered Problems Problem Type SNOMED Code ICD Code Onset Dates Problem Status W/U Status Risk Notes Problem 418190426 Encounter for screening for malignant neoplasm of colon (Z12.11) Active confirmed Problem 599117596 History of adenomatous polyp of colon (Z86.010) Active confirmed Problem Screening for malignant neoplasm of rectum (986175847) Encounter for screening for malignant neoplasm of rectum (Z12.12) Active confirmed Problem Dysphagia (41794518) Dysphagia (R13.10) Active confirmed Problem Iron deficiency anemia (49864105) Iron deficiency anemia (D50.9) Active confirmed Problem Gastric polyp (11854835) Gastric polyp (K31.7) Active confirmed Problem History of polyp of colon (005376497) Hx of colonic polyps (Z86.010) Active confirmed Problem 309881837 Long-term (curre nt) use of anticoagulants (Z79.01) Active confirmed Problem 99782139 Iron deficiency anemia, unspecified iron deficiency anemia type (D50.9) Active confirmed Problem 472984091 History of esophageal stricture (Z87.19) Active confirmed Problem Esophageal reflux finding (047686280) Gastroesophageal reflux (K21.9) Active confirmed Problem Diverticulosis of sigmoid colon (434341831) Diverticulosis of sigmoid colon (K57.30) Active confirmed Vital Signs Temperature 98.0 degrees Fahrenheit 07/01/2024 Blood pressure diastolic 01 mm Hg 07/01/2024 Height 72 in 07/01/2024 Blood pressure systolic 001 mm Hg 07/01/2024 Weight 206 lbs 07/01/2024 BMI 27.94 kg/m2 07/01/2024 Procedures Procedure Date Ordered Date Performed Result Body Sit e UPPER GI ENDOSCOPY BALLOOON DILATION OF ESOPH 07/01/2024 N/A Encounters Encounter Location Date Provider Diagnosis [facility] [address] [place] [address] 07/01/2024 Patito Andrews Dysphagia R13.10 ; History of esophageal stricture Z87.19 and Gastroesophageal reflux K21.9 [facility] [address] [place] [address] 06/01/2024 Patito Andrews Assessments Encounter Date Diagnosis (ICD Code) Assessment Notes Treatment Notes Treatment Clinical Notes Section Notes 07/01/2024 Dysphagia (ICD-10 - R13.10) Overall, Patito appears well from a clinical standpoint. Based on his current history it certainly seems that he is having difficulty with periodic episodes of esophageal obstruction in that he cannot swallow even saliva at times and will occasionally have to regurgitate the food. As such, I did recommend he undergo an upper endoscopy for probable balloon dilation of a recurrent stricture or esophageal ring as described on the barium swallow from last year. Full consent has been taken for this, including risks of bleeding and perforation. The procedure will be done with monitored anesthesia care. He was given the below instructions regarding adjustment of his medication for the procedure. I did instruct him to be sure to eat carefully between now and when we do the procedure so as to avoid any further episodes of esophageal obstruction. Patito and his were comfortable with this plan. Thank you again for allowing me to participate in Patito's care. I shall continue to keep you advised of his progress.. 07/01/2024 History of esophageal stricture (ICD-10 - Z87.19) Overall, Patito appears well from a clinical standpoint. Based on his current history it certainly seems that he is having difficulty with periodic episodes of esophageal obstruction in that he cannot swallow even saliva at times and will occasionally have to regurgitate the food. As such, I did recommend he undergo an upper endoscopy for probable balloon dilation of a recurrent stricture or esophageal ring as described on the barium swallow from last year. Full consent has been taken for this, including risks of bleeding and perforation. The procedure will be done with monitored anesthesia care. He was given the below instructions regarding adjustment of his medication for the procedure. I did instruct him to be sure to eat carefully between now and when we do the procedure so as to avoid any further episodes of esophageal obstruction. Patito and his were comfortable with this plan. Thank you again for allowing me to participate in Patito's care. I shall continue to keep you advised of his progress.. 07/01/2024 Gastroesophageal reflux (ICD-10 - K21.9) Overall, Patito appears well from a clinical standpoint. Based on his current history it certainly seems that he is having difficulty with periodic episodes of esophageal obstruction in that he cannot swallow even saliva at times and will occasionally have to regurgitate the food. As such, I did recommend he undergo an upper endoscopy for probable balloon dilation of a recurrent stricture or esophageal ring as described on the barium swallow from last year. Full consent has been taken for this, including risks of bleeding and perforation. The procedure will be done with monitored anesthesia care. He was given the below instructions regarding adjustment of his medication for the procedure. I did instruct him to be sure to eat carefully between now and when we do the procedure so as to avoid any further episodes of esophageal obstruction. Patito and his were comfortable with this plan. Thank you again for allowing me to participate in Patito's care. I shall continue to keep you advised of his progress.. Plan Of Treatment Pending Test Test Name Order Date Hemoccult Cards (Non-Screening) 12/05/19 21 UPPER GI ENDOSCOPY BALLOOON DILATION OF ESOPH 07/01/2024 IRON + IBC (FE) 12/04/2020 IRON + IBC (FE) 03/09/2021 CBC w DIFF 12/04/2020 CBC w DIFF 03/09/2021 Ferritin 03/09/2021 Ferritin 12/04/2020 Future Test Test Name Order Date UPPER GI ENDOSCOPY BALLOOON DILATION OF ESOPH 08/29/2012 COLONOSCOPY 08/29/2012 COLONOSCOPY 03/29/2016 UPPER GI ENDOSCOPY 10/20/2020 COLONOSCOPY 10/20/2020 Next Appt Details Provider Name:Patito Andrews , 07/23/2024 02:00:00 PM, [address] [place] [address], [phone], Insurance Providers Payer Name Payer Address Payer Phone Subscriber Number Group Number Insured Name Patient Relationship to Insured Coverage Start Date Coverage End Date MEDICARE OF [place] [address] [place] [address] [phone] [id number] PATITO BUSTILLO Self - patient is the insured [employer] ATT[employer] CLAIMS [address] [place] [phone] [id number] PATITO BUSTILLO Self - patient is the insured Medical (General) History Medical History History ICD Code Larger tubular adenoma with dysplasia re moved in 11/2008 from [facility] Colonoscopy 07-06-2009--small tubular cristina nomas Hyperlipidemia EGD in 11/2008 with a small HH and gastri tis-neg. H. pylori COPD/pneumonia Denies [place],CVA,renal disease HTN Asymptomatic gallstones-this had been reviewed with him on his previous office visit in August,---he had subsequent gallstone pancreatitis and cholecystectomy as below Upper endoscopy in August with a finding of a fibrotic distal esophageal stricture that was dilated successfully with balloons Colonoscopy in August of 2012 with removal of small tubular adenomas Atrial flutter/Atrial fib--sees Dr. Hazel wat[facility] Colonoscopy 06/2016-small tubular adenoma s Gallstone pancreatitis Iron deficiency anemia 2020 with the below workup--3 Hemoccult cards were negative in December 2020 EGD 11/2020 revealed a small hiatal hernia, was otherwise negative. Duodenal biopsies were negative for celiac disease Colonoscopy 11/2020 was negative Surgical History Surgery Date(Month/Year) Wrist surgery 05/18-Dr. Norman Spine surgery 08/15--Dr. 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
--- OUTSIDE RECORDS SUMMARY | 2024-07-02 06:43 | XMS_ITS ---
Author Organization [facility] Address [address] [place] [address] Care Team Providers Care No Experience Name Role Phone Jordan Gabriel MD Primary Care Provider Patito Carpenter Unavailable [phone] Allergies No Known Allergies REASON FOR VISIT Patient presents today for esophageal dysfunction Medications Medication SIG (Take, Route, Frequency, Duration) Notes Start Date End Date Status Atorvastatin Calcium 80 MG 1 tablet Oral ly Once a day Active Iron (Ferrous Sulfate) 325 (65 Fe) MG 1 tablet Orally BID Active Lisinopril-hydroCHLOROthiaz godwin Active Omeprazole 20MG TAKE 1 CAPSULE DAILY for 90 Active Multi Vitamin/Minerals 1 1 tablet Orally once a day Active Vitamin B-12 100 MCG as directed Orally Active Omeprazole 20MG RX TAKE 1 CAPSULE DAILY for 90 Active metFORMIN HCl 500 MG 1 tablet with meals Orally Twice a day Active Calcium + D 315-200 MG-UNIT 1 tablet wit h meals Orally Twice a day Active Vitamin D3 1000 UNIT 1 tablet Orally Onc e a day Active Xarelto 10 MG 1 tablet Orally Once a day Active Problems Problem Type SNOMED Code ICD Code Onset Dates Problem Status W/U Status Risk Notes Problem Dysphagia (88513117) Dysphagia (R13.10) Active confirmed Vital Signs Temperature 98.0 degrees Fahrenheit 07/02/19 25 Blood pressure systolic 001 mm Hg 07/02/19 25 Blood pressure diastolic 01 mm Hg 025 Height 72 in 07/01/2024 Weight 206 lbs 07/01/2024 BMI 27.94 kg/m2 07/01/2024 Procedures Procedure Date Ordered Date Performed Result Body Sit e UPPER GI ENDOSCOPY BALLOOON DILATION OF ESOPH 07/01/2024 N/A Encounters Encounter Location Date Provider Diagnosis [facility] [address] [facility] [address] [place] [address] 07/01/2024 Patito Andrews Dysphagia R13.10 ; History of esophageal stricture Z87.19 and Gastroesophageal reflux K21.9 Assessments Encounter Date Diagnosis (ICD Code) Assessment [...] again for allowing me to participate in aPtito's care. I shall continue to keep you advised of his progress.. Plan Of Treatment Pending Test Test Name Order Date UPPER GI ENDOSCOPY BALLOOON DILATION OF ESOPH 07/01/2024 Next Appt Details Provider Name:Patito Andrews , 07/23/2024 02:00:00 PM, [address] [place] [address], [phone], Progress Notes * PATITO BUSTILLO CDOB:1939 (84 yo M)Acc No.[id number]:07/01/2024 Progress Notes Patient:?PATITO BUSTILLO Provider:?Patito Andrews MD :1940???Age:84 Y???Sex:Male Keron e:07/01/2024 Address: [address] [facility] Pcp:Jordan Gabriel MD Subjective: * Chief Complaints: * ???1. Patient presents today for esophageal dysfunction. * HPI: ???incontinence:? I saw Patito in consultation today in regard to further evaluation of his gastroesophageal flux and dysphagia. He was accompanied by his . I last saw Patito in 2020 at which time we had reviewed his upper endoscopy and colonoscopy in 2019 that was done for evaluation of anemia. Since that time he had been doing well but over the past year or so he has been experiencing some recurrent episodes of dysphagia. During these episodes he will have to stop eating and has difficulty swallowing saliva and will occasionally need to regurgitate. This typically will occur with things such as steak or hamburger. He had been using his omeprazole every other day but over the past month or so has increased that again to twice a day at my recommendation when he called us about a month ago. He did have an upper GI series in August 2023 describing a small hiatal hernia and a distal esophageal Schatzki's ring. There was no sign of any mass. He does have a history of having undergone an upper endoscopy with me in 2012 with the balloon dilation of a distal esophageal stricture. He otherwise feels well. He describes that his bowel movements have been regular and without any melena nor hematochezia. He denies any abdominal pain, jaundice, nor unintentional weight loss. He enjoys a good appetite otherwise and denies any issues such as nausea, vomiting, nor early satiety..He does continue to be followed by Hematology for his chronic anemia. His most recent labs in March showed a stable hemoglobin of 10.5 with a normal MCV and platelet count. He did have a CT scan of his chest in April describing his hiatal hernia and some mild diffuse thickening of the esophagus. * Medical History:?Larger tubu lar adenoma with dysplasia removed in 11/2008 from cecum, Colonoscopy 07-06-2009--small tubular adenomas, Hyperlipidemia, EGD in 11/2008 with a small HH and gastritis-neg. H. pylori, COPD/pneumonia, Denies AL,CVA,renal disease, HTN, Asymptomatic gallstones-this had been reviewed with him on his previous office visit in August,---he had subsequent gallstone pancreatitis and cholecystectomy as below, Upper endoscopy in August of 2012 with a finding of a fibrotic distal esophageal stricture that was dilated successfully with balloons, Colonoscopy in August of 2012 with removal of small tubular adenomas, Atrial flutter/Atrial fib--sees Dr. Padilla, [facility], Colonoscopy 06/2016-small tubular adenomas, Gallstone pancreatitis, Iron deficiency anemia 2020 with the below workup--3 Hemoccult cards were negative in December 2020, EGD 11/2020 revealed a small hiatal hernia, was otherwise negative. Duodenal biopsies were negative for celiac disease, Colonoscopy 11/2020 was negative. 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 Martines , Wrist surgery 05/18-Dr. Norman . * Family History:?Father: dece ased.?Mother: .? He is adopted, therefore does not know his family history. * Social History:?Tobacco Use:?Tobacco Use/Smoking?Patient is a: former smoker , How long has it been since you last smoked?: 5-10 years.?Drugs/Alcohol:?Alcohol Screen?Points: 0, Interpretation: Negative.?Miscellaneous:?Marital status: . Occupation: Retired. ???Nonsmoker since 2011; no sig alcohol. * Medications:?Taking Vitamin B-12 100 MCG Tablet as directed Orally , Taking Lisinopril-hydroCHLOROthiazide , Taking Iron (Ferrous Sulfate) 325 (65 Fe) MG Tablet 1 tablet Orally BID , Taking Atorvastatin Calcium 80 MG Tablet 1 tablet Orally Once a day , Taking Multi Vitamin/Minerals 1 Tablet 1 tablet Orally once a day , Taking Omeprazole 20MG Enteric Coated Capsule TAKE 1 CAPSULE DAILY , Taking Xarelto 10 MG Tablet 1 tablet Orally Once a day , Taking Vitamin D3 1000 UNIT Tablet 1 tablet Orally Once a day , Taking Calcium + D 315-200 MG-UNIT Tablet 1 tablet with meals Orally Twice a day , Taking metFORMIN HCl 500 MG Tablet 1 tablet with meals Orally Twice a day , Taking Omeprazole 20MG RX Enteric Coated Capsule TAKE 1 CAPSULE DAILY , Discontinued Ventolin HFA 108 (90 Base) MCG/ACT Aerosol Solution 2 puffs as needed Inhalation every 4 hrs , Medication List reviewed and reconciled with the patient * Allergies:?N.K.D.A. Objective: * Vitals:?Wt:206lbs, Ht: 72 in , BMI:27.94Index, BP:001/01mm Hg, Temp:98.0, Wt-k.44. Assessment: * Assessment: 1.?Dysphagia - R13.10 (Prima ry)???2.?History of esophageal stricture - Z87.19???3.?Gastroesophageal reflux - K21.9??? Overall, Patito appears well from a clinical [...] to keep you advised of his progress.. Plan: * Treatment: 2.?History of esophageal stricture?Procedure: UPPER GI ENDOSCOPY BALLOOON DILATION OF ESOPH* Do not use the Xarelto for2 days before the endoscopy.Do not take the Metformin the night before or on the morning of the proceduresched for 07/23/24 at 2:00 pmmac 3.?Gastroesophageal reflux?Procedure: UPPER GI ENDOSCOPY BALLOOON DILATION OF ESOPH* Do not use the Xarelto for2 days before the endoscopy.Do not take the Metformin the night before or on the morning of the proceduresched for 07/23/24 at 2:00 pmmac * Procedure Codes:?98791 ESOPH JD ENDOSCOPY * Preventive Medicine:? ??Counseling:?Care goal follow-up plan:?Above Normal BMI Follow-up?Dietary management education, guidance, and counseling,?BMI management provided?Yes.? ??Screenings:?Fall Risk Screening?Fall Risk Assessment:?No falls in the past year,?Screening:?No falls in the past year,?Assessment:?Not performed, no reason specified,?Plan of Care:?Not documented, no reason specified.? * * The named appointment provid er may or may not be the originator of this progress note, and it is not deemed complete until electronically signed by the appointment provider. Sign off status: Pending * Provider:?Patito Andrews MD Date:? 025 Generated for Gautam oh/Isaac/Esequiel on:?07/02/2024 06:42 AM EDT
--- OUTSIDE RECORDS SUMMARY | 2024-07-02 06:43 | XMS_ITS ---
Author Organization Jordan Gabriel MD Address [address] [place] [phone] Care Team Providers Care Physical Ther Name Role Phone Jordan Gabriel Primary Care Provider Results Component Value Reference Range Notes Potassium Reviewed date:12/16/2023 12:34:18 PM Interpretation: Performing Lab:[facility], [address] [place] [phone] Notes/Report: Potassium 4.6 3.3-5.1 mmol/L REASON FOR VISIT POTASSIUM Encounters Encounter Location Date Provider Diagnosis Jordan Gabriel MD [address] [place] [phone] 12/16/2023 Jordan Gabriel Chronic hyperkalemia E87.5 Assessments Encounter Date Diagnosis (ICD Code) Assessment Notes Treatment Notes Treatment Clinical Notes Section Notes 12/16/2023 Chronic hyperkalemia (ICD-10 - E87.5) Plan Of Treatment Next Appt Details Provider Name:Jordan Cyr ier, 11/10/2024 08:00:00 AM, [address], [address], [place], [place], [phone], Provider Name:Jordan Eric Cyr ier, 11/17/2024 10:30:00 AM, [address], [address], [place], [phone], Provider Name:Jordan Eric Steffanydebbie ier, 05/21/2025 01:45:00 PM, [address] [facility], [address], [place], [place], [phone], Progress Notes * Anthony GOODMAN CDOB:1939 (84 yo M)Acc No.[id number]:12/16/2023 Progress Note Patient:?Anthony GOODMAN C Provider:?Jordan Gabriel MD :1940???Age:83 Y???Sex:Male Keron e:12/16/2023 Address:[address] [place], [place] [address]jose [facility] Subjective: * Chief Complaints: * ???1. POTASSIUM. * Medical History:? Objective: * Vitals:? Assessment: * Assessment: 1.?Chronic hyperkalemia - E8 7.5 (Primary)??? Plan: * Treatment: * Procedure Codes:?88771 VENIP UNCT, ROUTINE* * * The named appointment provid er may or may not be the originator of this progress note, and it is not deemed complete until electronically signed by the appointment provider. Sign off status: Pending * Provider:?Jordan Gabriel MD Date:?0 12/16/2023 Generated for Earlinei adriano/Isaac/eTransmitting on:?07/02/2024 06:43 AM EDT
--- OUTSIDE RECORDS SUMMARY | 2024-07-02 06:43 | XMS_ITS ---
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 Name Role Phone Nery Jordan Primary Care Provider [phone] Allergies No Known Allergies Reason For Referral Reason please frederick tovar Diagnosis 1 Esophageal dysfuncti on (K22.4) Referral Organization Jordan Gabriel MD Referring Provider First Name Jordan Referring Provider Last Name Nery Referring Provider Speciality Internal M edicine Referred Provider Anthony Curry Referred Provider Specialty Gastroentero logy General Notes Narda Elizabeth 0 05/22/2024 09:43:41 AM >info faxed, Narda Elizabeth 05/28/2024 02:48:10 PM >referral info mailed Referral Priority Routine Referral Appointment Date 07/01/2024 REASON FOR VISIT 6 MO F/U Medications Medication SIG (Take, Route, Frequency, Duration) Notes Start Date End Date Status FreeStyle Lite 0 as directed invitro DX: E 11.9 once a day for 30 days 01/17/2016 Active FreeStyle Lite Test 0 as directed In Vit ro DX: E 11.9 use tot test blood sugar once a day for 30 days 01/17/2016 Active Benadryl Allergy 25 MG 1 tablet as neede d Orally every 8 hrs Not-Taking Symbicort 160-4.5 MCG/ACT 2 puffs Inhala tion Twice a day for 30 days 11/14/2017 Not-Taki ng Ventolin HFA 108 (90 Base) MCG/ACT 2 puffs as needed Inhalation every 4 hrs Not-Takin g Nystatin 042873 UNIT/GM 1 application Externally Twice a day for 14 days 04/28/2019 Active metFORMIN HCl 500 MG TAKE 1 TABLET BY MO [facility] TWICE A DAY WITH MEALS for 90 Active Xarelto 20 MG 1 tablet with food Orally Once a day Active Albuterol Sulfate HFA 108 (90 Base) MCG/ACT 1 puff as needed Inhalation every 4 hrs 04/13/2022 Active Lisinopril 20 MG TAKE 1 TABLET BY JANETH EVERY DAY for 90 Active Omeprazole 20 MG 1 capsule Orally Onc e a day Active Ferrous Sulfate 325 (65 Fe) MG 1 tablet Orally BID Active Atorvastatin Calcium 80 MG 1 tablet Orally Once a day Active Social History Tobacco Use: Social History Observation Description Date Details (start date - stop date) Former Smoker NA - NA Tobacco Use/Smoking Question Answer Notes Patient is a former smoker How long has it been since y ou last smoked? > 10 years Additional Findings: Tobacco Non-User Fo rmer smoker, currently using no form of tobacco Alcohol Screen Question Answer Notes Did you have a drink containing alcohol in the p ast year? No Points 0 Interpretation Negative Vital Signs Blood pressure systolic 142 mm Hg 05/19/19 25 Blood pressure diastolic 60 mm Hg 025 Height 71 in 05/19/2024 Weight 206 lbs 05/19/2024 BMI 28.73 kg/m2 05/19/2024 Encounters Encounter Location Date Provider Diagnosis Jordan Gabriel MD [address] [place] [address] [place] [phone] 05/19/2024 Jordan Gabriel Encounter for genera l adult medical examination with abnormal findings Z00.01 ; Esophageal dysfunction K22.4 ; Pure hypercholesterolemia E78.00 and Type 2 diabetes mellitus without complications E11.9 Assessments Encounter Date Diagnosis (ICD Code) Assessment Notes Treatment Notes Treatment Clinical Notes Section Notes 05/19/2024 Encounter for genera l adult medical examination with abnormal findings (ICD-10 - Z00.01) 05/19/2024 Esophageal dysfuncti on (ICD-10 - K22.4) referral to dr curry 05/19/2024 Pure hypercholesterolemia (ICD-10 - E78.00) has good numbers 05/19/2024 Type 2 diabetes mina itus without complications (ICD-10 - E11.9) Plan Of Treatment Treatment Notes Assessment Notes Esophageal dysfunction referral to dr landy schultz Pure hypercholesterolemia has good numbe rs Referrals Referral Date Details 05/19/2024 05/19/2024, please e tammi and treatAnthony Next Appt Details Provider Name:Jordan ward, 11/10/2024 08:00:00 AM, [address] [place] [address], [address] [place] [address], [phone], Provider Name:Jordan ward, 11/17/2024 10:30:00 AM, [address] [place] [address], [address] [place] [address], [phone], Provider Name:Jordan ward, 05/21/2025 01:45:00 PM, [address] [place] [address], [place] [address], [place], [place], [phone], Progress Notes * Anthony GOODMAN CDOB:1939 (84 yo M)Acc No.[id number]:05/19/2024 Progress Note Patient:?Anthony GOODMAN Provider:?Jordan Gabriel MD :1940???Age:84 Y???Sex:Male Keron e:05/19/2024 Address: [address] [place] [id number] Subjective: * Chief Complaints: * ???6 MO F/U * HPI: ???Depression Screening:?PHQ-9?Little interest or pleasure in doing things?Not at all,?Feeling down, depressed, or hopeless?Not at all,?Trouble falling or staying asleep, or sleeping too much?Not at all,?Feeling tired or having little energy?Not at all,?Poor appetite or overeating?Not at all,?Feeling bad about yourself or that you are a failure, or have let yourself or your family down?Not at all,?Trouble concentrating on things, such as reading the newspaper or watching television?Not at all,?Moving or speaking so slowly that other people could have noticed; or the opposite, being so fidgety or restless that you have been moving around a lot more than usual?Not at all,?Thoughts that you would be better off or of hurting yourself in some way?Not at all,?Total Score?0.?Interpretation and Intervention?Depression Screening Findings?Negative,?Follow-Up for Depression?: review of PHQ-9 found negative result, no follow-up needed.?pt here for AWV? and follow up for?some stricture in esophagus which is worsening and now sometimes food gets stuck. ???Annual Wellness Visit:?c/o of?Annual Wellness Visit.?Medical / Social History Reviewed?The following items were reviewed and updated during today's visit?Past Medical History, [facility] [place] [facility], Surgical/Hospitalization History, Current medications including OTC and supplements, Family History, Tobacco use, Alcohol use, Illicit drug use.?Home Safety?Throw rugs??No,?Grab bars??Yes,?Raised toilet seats??No,?Working smoke detectors??Yes,?Working carbon monoxide detectors??Yes.?Activities of Daily Living (ADLs)?Difficulty bathing or showering??No,?Difficulty dressing??No,?Difficulty using the toilet??No,?Difficulty getting in and out of bed??No,?Difficulty walking??No,?Receives help from another person with any of the above?No.?End-of-Life Planning?End of Life Planning?Not needed.?Answers for HPI/ROS submitted by the patient?Change in Weight?No,?Change in hearing?No.? HRA filled out by the patient, reviewed by Provider and scanned. ???Communication Needs:?Communication Needs?Does the patient have a hearing impairment?No,?Does the patient have a vision impairment??Yes,?If yes, what is the vision impairment??Glasses,?Does the patient have a cognition impairment??No.?Fall Risk:?History?Have you had any falls with injury in the past year??No,?Have you had two or more falls in the past year??No.?SDOH Questions:?SDOH Questions?In the past year have you been worried about losing housing??No,?In the past year have you or any family members you live with been unable to get any of the following when it was really needed? Check all that apply:?None.? * ROS:?General/Constitutional:?Denies?Chills.?Denies?Fatigue.?Denies?Fever.?ENT:?Denies?Sore throat.?Respiratory:?Denies?Cough.?Denies?Shortness of breath at rest.?Denies?Shortness of breath with exertion.?Gastrointestinal:?Denies?Diarrhea.?Denies?Nausea.? * Medical History:? * Surgical History:? * Hospitalization/Major Diagno stic Procedure:? * Family History:?Father: dece ased 88 yrs, family history unknown .?Mother: 88 yrs.?1 brother(s) , 1 sister(s) - healthy. 1 son(s) , 1 daughter(s) - healthy. .? mother, cardiac arrest, Denies mental health/substance abuse family history, Denies mental health/substance abuse family history, No pertinent family medical history, No pertinent family medical history. * Social History:?Tobacco Use:?Tobacco Use/Smoking?Patient is a?former smoker,?How long has it been since you last smoked??> 10 years,?Additional Findings: Tobacco Non-User?Former smoker, currently using no form of tobacco.?Drugs/Alcohol:?Alcohol Screen?Did you have a drink containing alcohol in the past year??No,?Points?0,?Interpretation?Negative.?Miscellaneous:?Caffeine: yes, 2-3 cups per day (coffee). Children: yes. Community involvements: yes. Exercise: no, biking [place] 3 times a week. Housing: owning. Living with: spouse. Marital status: . 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 Pets: dogs. Travel outside of the [place]: no. * Medications:?TakingFreeStyle Lite 0 Device as directed invitro DX: E 11.9 once a day FreeStyle Lite Test 0 Strip as directed In Vitro DX: E 11.9 use tot test blood sugar once a day Atorvastatin Calcium 80 MG Tablet 1 tablet Orally Once a day Omeprazole 20 MG Capsule Delayed Release 1 capsule Orally Once a day Ferrous Sulfate 325 (65 Fe) MG Tablet 1 tablet Orally BID Xarelto 20 MG Tablet 1 tablet with food Orally Once a day Albuterol Sulfate HFA 108 (90 Base) MCG/ACT Aerosol Solution 1 puff as needed Inhalation every 4 hrs Nystatin 117332 UNIT/GM Cream 1 application Externally Twice a day metFORMIN HCl 500 MG Tablet TAKE 1 TABLET BY MOUTH TWICE A DAY WITH MEALS Lisinopril 20 MG Tablet TAKE 1 TABLET BY MOUTH EVERY DAY Taking FreeStyle Lite 0 Device as directed invitro DX: E 11.9 once a day Taking FreeStyle Lite Test 0 Strip as directed In Vitro DX: E 11.9 use tot test blood sugar once a day Taking Atorvastatin Calcium 80 MG Tablet 1 tablet Orally Once a day Taking Omeprazole 20 MG Capsule Delayed Release 1 capsule Orally Once a day Taking Ferrous Sulfate 325 (65 Fe) MG Tablet 1 tablet Orally BID Taking Xarelto 20 MG Tablet 1 tablet with food Orally Once a day Taking Albuterol Sulfate HFA 108 (90 Base) MCG/ACT Aerosol Solution 1 puff as needed Inhalation every 4 hrs Taking Nystatin 971854 UNIT/GM Cream 1 application Externally Twice a day Taking metFORMIN HCl 500 MG Tablet TAKE 1 TABLET BY MOUTH TWICE A DAY WITH MEALS Taking Lisinopril 20 MG Tablet TAKE 1 TABLET BY MOUTH EVERY DAY Not-Taking/PRNVentolin HFA 108 (90 Base) MCG/ACT Aerosol Solution 2 puffs as needed Inhalation every 4 hrs Symbicort 160-4.5 MCG/ACT Aerosol 2 puffs Inhalation Twice a day Benadryl Allergy 25 MG Tablet 1 tablet as needed Orally every 8 hrs Medication List reviewed and reconciled with the patientNot-Taking/PRN Ventolin HFA 108 (90 Base) MCG/ACT Aerosol Solution 2 puffs as needed Inhalation every 4 hrs Not-Taking/PRN Symbicort 160-4.5 MCG/ACT Aerosol 2 puffs Inhalation Twice a day Not-Taking/PRN Benadryl Allergy 25 MG Tablet 1 tablet as needed Orally every 8 hrs Medication List reviewed and reconciled with the patient * Allergies:?N.K.D.A.yes[Aller gies Verified] Objective: * Vitals:?Ht: 71, Wt: 206, BMI :28.73, BP:142/60, Wt-k.44. * ???Past Orders: ???Lab:Hemoglobin A1c (Order Date - 05/12/2024) (Collection Date & Time - 05/12/2024 07:45 AM) ? Value Reference Range ?Hemoglobin A1c % 6.0 <6. 0 - % ?Estimated Average Glucose 126 - mg/dL ???Lab:Lipid Panel with Refl ex (Order Date - 05/12/2024) (Collection Date & Time - 05/12/2024 07:45 AM) ? Value Reference Range ?Triglycerides 71 <150 - mg/dL ?Cholesterol 106 <200 - m g/dL ?LDL Cholesterol Calculated 49 <100 - mg/dL ?HDL Cholesterol 43 >40 - mg/dL ???Lab:Glucose Fasting (Orde r Date - 05/12/2024) (Collection Date & Time - 05/12/2024 07:45 AM) ? Value Reference Range ?Glucose Fasting 95 60-9 9 - mg/dL ???Lab:Liver Panel (Order Da te - 05/12/2024) (Collection Date & Time - 05/12/2024 07:45 AM) ? Value Reference Range ?Bilirubin Total 0.5 0.0- 1.0 - mg/dL ?Bilirubin Direct 0.2 0.0 -0.5 - mg/dL ?Aspartate Amino Transferase 28 5-37 - U/L ?Alanine Aminotransferase 18 0-40 - U/L ?Total Protein 7.1 6.5-8. 0 - g/dL ?Albumin Level 4.0 3.5-5. 0 - g/dL ?Alkaline Phosphatase 72 39-117 - U/L * Examination: ???AWV: ?Balance?.?Hearing?.?EKG? Not clinically necessary.?Written plan?Completed.?General Examination: ?GENERAL APPEARANCE:?alert, well hydrated, in no distress.?HEAD:?normocephalic.?SKIN:?good turgor.?HEART:?irregularly irregular rhythm.?LUNGS:?no wheezes, rales, rhonchi, good air movement, clear to auscultation bilaterally.? Assessment: * Assessment: 1.?Encounter for general errol lt medical examination with abnormal findings - Z00.01 (Primary)???2.?Esophageal dysfunction - K22.4???3.?Pure hypercholesterolemia - E78.00???4.?Type 2 diabetes mellitus without complications - E11.9??? Plan: * Treatment: 2.?Pure hypercholesterolemia ? Notes: has good numbers?? * Procedure Codes:?G0439 ANNUA L WELLNESS VST; PPS SUBSQT VST * Preventive Medicine:? ??Counseling:?Care goal follow-up plan:?Counseling for abnormal BMI provided?Yes,?Above Normal BMI Follow-up?Dietary management education, guidance, and counseling, Dietary needs education, Giving encouragement to exercise.?Exercise?.?Communication to patient:?Counseling for nutrition provided?Yes,?Counseling for physical activity provided?Yes.?Social:?diet:?Discussed the importance of eating a nutritious healthy food on a regular basis,?exercise:?Discussed the benefits of any exercise for overall health and well-being,?alcohol and drugs:?Discussed the dangers of excessive alcohol intake.? ??SCREENING:?Colonoscopy?Next screening is scheduled.?Mammogram?Annual Mammogram recommended pt will self schedule.? ??Diabetes Care Plan:?Patient Lifestyle Goals?Needs to maintain diet control.?Treatment Goals?A1C< 7.?Barriers ?No specific barriers, doing well.?Expected Outcome?maintaining stable blood sugar levels within a target range.? ??Immunizations:?Influenza?Have you had a flu shot since the most recent November 23??Yes.?Covid?patient vaccincated.? ??Screening/Special Tests:?Colonoscopy?.?Mammogram?.? * * Sign off status: Completed true * Provider:?Jordan Gabriel MD Date:?0 05/19/2024 Generated for Gautam oh/Isaac/eTransmitting on:?07/02/2024 06:42 AM EDT History and Physical Notes * HPI (History of Present Illness) Category Sub-Category Detail Notes Category Not es Depression Screening PHQ-9 Little inte rest or pleasure in doing things: Not at all pt here for AWV and follow up for some stricture in esophagus which is worsening and now sometimes food gets stuck Feeling down, depressed, or hopeless: No t at all Trouble falling or staying asleep, or sl eeping too much: Not at all Feeling tired or having little energy: N ot at all Poor appetite or overeating: Not at all Feeling bad about yourself o r that you are a failure, or have let yourself or your family down: Not at all Trouble concentrating on thi ngs, such as reading the newspaper or watching television: Not at all Moving or speaking so slowly that other people could have noticed; or the opposite, being so fidgety or restless that you have been moving around a lot more than usual: Not at all Thoughts that you would be b raheem off or of hurting yourself in some way: Not at all Total Score: 0 Interpretation and Intervention Depression Manav fisher Findings: Negative Follow-Up for Depression: : review of PH Q-9 found negative result, no follow-up needed SDOH Questions SDOH Questions In the past year have you been worried about losing housing?: No In the past year have you or any family members you live with been unable to get any of the following when it was really needed? Check all that apply:: None Fall Risk History Have you had any falls with injury i n the past year?: No Have you had two or more falls in the st year?: No Communication Needs Communication Needs Does the patient have a hearing impairment: No Does the patient have a vision impairmen t?: Yes ?If yes, what is the vision impairment?: Glasses Does the patient have a cognition impair ment?: No Annual Wellness Visit of Annual Wellness Vis it HRA filled out by the patient, reviewed by Provider and scanned. Medical / Social History Reviewed The fo llowing items were reviewed and updated during today's visit: Past Medical History, [place] of Care, Surgical/Hospitalization History, Current medications including OTC and supplements, Family History, Tobacco use, Alcohol use, Illicit drug use Home Safety Throw rugs?: No Grab bars?: Yes Raised toilet seats?: No Working smoke detectors?: Yes Working carbon monoxide detectors?: Yes Activities of Daily Living (ADLs) Difficulty bat lv or showering?: No Difficulty dressing?: No Difficulty using the toilet?: No Difficulty getting in and out of bed?: N o Difficulty walking?: No Receives help from another person with a ny of the above: No End-of-Life Planning End of Life Planning: Not n eeded Answers for HPI/ROS submitted by the patient Iraida serna in Weight: No Change in hearing: No Examination Category Sub-Category Detail Notes Category Not es General Examination GENERAL APPEARANCE: alert, w ell hydrated, in no distress HEAD: normocephalic HEART: irregularly irregula r rhythm LUNGS: no wheezes, rales, r honchi, good air movement, clear to auscultation bilaterally SKIN: good turgor AWV Balance Romberg: . Tandem walk: . Walk and Turn: . Rise from sit to stand: . Hearing Whisper test: . EKG Not clinically solange blevins Written plan Completed Consultation Request Notes Referral Date Referring Provider Referred Provider Not es 05/19/2024 Jordan Gabriel Robert please eva l and treat
--- OUTSIDE RECORDS SUMMARY | 2024-07-02 06:43 | XMS_ITS | Patient Health Record ---
Author Organization Jordan Gabriel MD Address [address] [place] [phone] Care Team Providers Care [facility] Practitioner Name Role Phone Jordan Gabriel Primary Care Provider Allergies No Known Allergies Results Component Value Reference Range Notes Complete Blood Count Auto Di ff Reviewed date:11/08/2023 12:23:45 PM Interpretation: Performing Lab:[facility], [address] [place] [phone] Notes/Report: White Blood Count 7.3 4.8-10.8 X10*3/uL Red Blood Count 3.60 4.60-5.80 X10*6/uL Hemoglobin 10.4 14.0-18.0 g/dl Hematocrit 32.4 42.0-52.0 % Mean Corpuscular Volume 90.0 80.0-98.0 fL Mean Corpuscular Hemoglobin 28.9 27.0-33.0 pg Mean Corpuscular HGB Conc 32.1 31.0-36.0 g/dl Red Cell Distribution Width 14.8 11.0-16.0 % Platelet Count 307 160-400 X10*3/uL Mean Platelet Volume 10.3 9.4-12.4 fL Neutrophils Percent Auto 55.0 45-73 % Imm Gran Pct Auto 0.1 0.0-0.4 % Lymphocytes Percent Auto 28.3 20-40 % Monocytes Percent Auto 9.9 2-11 % Eosinophils Percent Auto 6.0 0-4 % Basophils Percent Auto 0.7 0-2 % NRBC Pct Auto 0.0 0.0-0.2 /100WBC Neutrophils Absolute Auto 4.0 2.0-8.3 x10*3/u L Imm Gran Abs Auto 0.01 0.00-0.03 X10*3/uL Lymphocytes Absolute Auto 2.1 1.2-4.9 X10*3/u L Monocytes Absolute Auto 0.7 0.1-1.2 X10*3/uL Eosinophils Absolute Auto 0.4 0.0-0.4 X10*3/u L Basophils Absolute Auto 0.1 0.0-0.2 X10*3/uL NRBC Abs Auto 0.000 0.0-0.012 X10*3/uL Comprehensive [place]. Panel Fa st Reviewed date:11/15/2023 10:48:59 AM Interpretation:BING 11/14 Performing Lab:[facility], [address] [place] [phone] Notes/Report: Sodium 141 135-145 mmol/L Potassium 5.3 3.3-5.1 mmol/L Chloride 110 96-108 mmol/L Carbon Dioxide 25 22-29 mmol/L Anion Gap 11 12-20 Blood Urea Nitrogen 27 9-16 mg/dL Creatinine 1.45 0.5-1.4 mg/dL Estimated Glomerular Filt Rate 47 NOTE: For -Belgian individuals, multiply the result by 1.210. Chronic Kidney Disease: Estimated GFR < 60 mL/min/1.73m2 Severe Kidney Disease: Estimated GFR < 15 mL/min/1.73m2 Glucose Fasting 92 60-99 mg/dL Calcium 10.2 8.4-10.2 mg/dL Bilirubin Total 0.4 0.0-1.0 mg/dL Aspartate Amino Transferase 16 5-37 U/L Alanine Aminotransferase 12 0-40 U/L Total Protein 6.8 6.5-8.0 g/dL Albumin Level 4.1 3.5-5.0 g/dL Alkaline Phosphatase 66 39-117 U/L IRON PROFILE Reviewed date:11/08/2023 12:10:33 PM Interpretation: Performing Lab:[facility], [address] [place] [phone] Notes/Report: Iron 36 45-160 mcg/dL Total Iron Binding Capacity 234 228-428 mcg/dL Percent Iron Saturation 15 15-50 % Unsaturated Iron Binding 198 Lipid Panel Reviewed date:11/08/2023 12:09:57 PM Interpretation: Performing Lab:[facility], [address] [place] [phone] Notes/Report: Triglycerides 66 <150 mg/dL Desirable Triglyceride: less than 150 mg/dL Borderline High Triglyceride 150-199 mg/dL High Triglyceride: 200-499 mg/dL Very High Triglyceride: greater than or equal to 5OO mg/dL Cholesterol 100 <200 mg/dL Desirable Cholesterol: less than 200 mg/dL Borderline High Cholesterol: 200-239 mg/dL High Cholesterol: greater than 239 mg/dL LDL Cholesterol Calculated 45 <100 mg/dL Desirable LDL: less than 100 mg/dL Near Optimal/Above Optimal LDL: 110-129 mg/dL Borderline High LDL: 130-159 mg/dL High LDL: 160-189 mg/dL Very High LDL: greater than or equal to 190 mg/dL HDL Cholesterol 42 >40 mg/dL Desirable HDL: greater than 40 mg/dL Note: This HDL assay may give artificially low results in patients with liver disease. PSA,Total (Free>4and<10) Reviewed date:11/08/2023 12:10:13 PM Interpretation: Performing Lab:[facility], [address] [place] [phone] Notes/Report: PSA,Total (Free>4and<10) 2.03 0.00-4.00 ng/mL A Free PSA was not performed: The percentage of Free PSA can be used to enhance the differentiation of prostate cancer from benign prostatic disease in subjects whose PSA levels are between 4.0 and 10.0 ng/mL. For subjects whose PSA levels are below 4.0 or above 10.0 ng/mL, the risk of prostate cancer is determined on the basis of the PSA alone. Therefore the % Free PSA is recommended only for those subjects whose PSA levels are between 4.0 and 10.0 ng/mL. PSA methodology: Mckinney Alinity i Chemiluminescent Microparticle Immunoassay (CMIA) Microalbumin, Random Reviewed date:11/08/2023 12:20:08 PM Interpretation: Performing Lab:[address] [phone] Notes/Report: Creatinine Urine 62.41 Microalbumin Urine 22.0 Microalbum/Creatinine Ratio Ur 35.2 <30 ug/mg cr Albumin/Creatinine Ratio Reference Ranges: Normal: < 30 ug/mg creatinine Microalbuminuria: 30 - 300 ug/mg creatinine Clinical Albuminuria: > 300 ug/mg creatinine Hemoglobin A1c Reviewed date:11/08/2023 12:14:45 PM Interpretation: Performing Lab:[address] [phone] Notes/Report: Hemoglobin A1c % 5.8 <6.0 % Hemoglobin A1C Reference Range Adults: 4.8 - 6.0 % Non diabetic: < 6.0 % Goal: < 7.0 % Additional Action Suggested: > 8.0 % Note: Hemoglobin A1c results are invalid for patients with abnormal amounts of HbF. Blood transfusions may impact the HbA1c concentration in the patient sample. Estimated Average Glucose 120 eAG = Estimated average glucose which is %A1C expressed as average glucose, using the formula of the K3V-Gxxtmtt Average Glucose study (ADAG), Diabetes Care, Vol.31,#8, 2007 UA ClnCatch+Micro w/rflx Cul t Reviewed date:11/10/2023 06:33:03 PM Interpretation: Performing Lab:[facility], [address] [place] [phone] Notes/Report: Urine, Clean Catch Color Urine Yellow Appearance Urine Clear PH 5.5 5.0-9.0 Glucose Urine UA Negative Negative mg/dL Urine Blood Negative Negative Specific [place] - Urine 1.015 1.005-1.025 Urine Protein Negative Neg-Trace mg/dL Urine Ketones Negative Negative mg/dL Nitrite Urine Negative Negative Leukocyte Esterase Urine Trace Negative RBC Urine 0-2 0-2 /HPF WBC Urine 0-5 0-5 /HPF Squamous Epithelial Cell Urine 0-2 0-2 /HPF Bacteria Urine None Seen None Seen Hyaline Casts Urine 0-2 0-2 /LPF Potassium Reviewed date:12/16/2023 12:34:18 PM Interpretation: Performing Lab:[facility], [address] [place] [phone] Notes/Report: Potassium 4.6 3.3-5.1 mmol/L Liver Panel Reviewed date:05/12/2024 04:52:54 PM Interpretation: Performing Lab:[facility], [address] [place] [phone] Notes/Report: Bilirubin Total 0.5 0.0-1.0 mg/dL Bilirubin Direct 0.2 0.0-0.5 mg/dL Aspartate Amino Transferase 28 5-37 U/L Alanine Aminotransferase 18 0-40 U/L Total Protein 7.1 6.5-8.0 g/dL Albumin Level 4.0 3.5-5.0 g/dL Alkaline Phosphatase 72 39-117 U/L Glucose Fasting Reviewed date:05/12/2024 04:53:04 PM Interpretation: Performing Lab:[facility], [address] [place] [phone] Notes/Report: Glucose Fasting 95 60-99 mg/dL Lipid Panel with Reflex Reviewed date:05/12/2024 04:53:13 PM Interpretation: Performing Lab:[facility], [address] [place] [phone] Notes/Report: Triglycerides 71 <150 mg/dL Desirable Triglyceride: [...] A1c Reviewed date:05/12/2024 12:07:37 PM Interpretation: Performing Lab:[facility], [address] [place] [phone] Notes/Report: Hemoglobin A1c % 6.0 <6.0 % [...] average glucose, using the formula of the H3F-Jxrwprl Average Glucose study (ADAG), Diabetes Care, Vol.31,#8, Oct. 2007 Complete Blood Count Auto Di ff Reviewed date:07/19/2023 07:43:44 PM Interpretation: Performing Lab:[facility], [address] [place] [phone] Notes/Report: White Blood Count 7.3 4.8-10.8 X10*3/uL Red Blood Count 3.69 4.60-5.80 X10*6/uL Hemoglobin 10.5 14.0-18.0 g/dl Hematocrit 32.5 42.0-52.0 % Mean Corpuscular Volume 88.1 80.0-98.0 fL Mean Corpuscular Hemoglobin 28.5 27.0-33.0 pg Mean Corpuscular HGB Conc 32.3 31.0-36.0 g/dl Red Cell Distribution Width 14.9 11.0-16.0 % Platelet Count 308 160-400 X10*3/uL Mean Platelet Volume 10.4 9.4-12.4 fL Neutrophils Percent Auto 63.1 45-73 % Imm Gran Pct Auto 0.1 0.0-0.4 % Lymphocytes Percent Auto 22.4 20-40 % Monocytes Percent Auto 9.2 2-11 % Eosinophils Percent Auto 4.7 0-4 % Basophils Percent Auto 0.5 0-2 % NRBC Pct Auto 0.0 0.0-0.2 /100WBC Neutrophils Absolute Auto 4.6 2.0-8.3 x10*3/u L Imm Gran Abs Auto 0.01 0.00-0.03 X10*3/uL Lymphocytes Absolute Auto 1.6 1.2-4.9 X10*3/u L Monocytes Absolute Auto 0.7 0.1-1.2 X10*3/uL Eosinophils Absolute Auto 0.3 0.0-0.4 X10*3/u L Basophils Absolute Auto 0.0 0.0-0.2 X10*3/uL NRBC Abs Auto 0.000 0.0-0.012 X10*3/uL Hemoglobin A1c Reviewed date:07/19/2023 07:29:49 PM Interpretation: Performing Lab:[facility], [address] [place] [phone] Notes/Report: Hemoglobin A1c % 6.0 <6.0 % [...] average glucose, using the formula of the C3N-Wmopibq Average Glucose study (ADAG), Diabetes Care, Vol.31,#8, 2007 Electrocardiogram (EKG) Reviewed date:07/19/2023 01:28:35 PM Interpretation: Performing Lab: Notes/Report: Occult Blood, Stool, Guaiac Reviewed date:11/15/2023 10:41:32 AM Interpretation:Negative Performing Lab: Notes/Report: Negative Occult Blood, Stool, Guaiac Neg XR chest 2V Reviewed date:08/01/2023 12:46:12 PM Interpretation: Performing Lab: Notes/Report: [address] [address] XRay Report Signed Patient: Anthony Goodman MR#: [id number] : 1940 Acct:[id number] Age/Sex: 83 / M ADM Date: 07/31/23 Loc: [facility] Attending Dr: Jordan Gabriel MD Ordering Physician: Jordan Gabriel MD Date of Service: 07/31/23 Procedure(s): XR chest 2V Accession Number(s): [id number] cc: Jordan Gabriel MD EXAMINATION: XR CHEST 2 VIEW CLINICAL INFORMATION: Cough, fatigue COMPARISON: 11/14/2022 TECHNIQUE: PA and lateral views of the chest obtained. FINDINGS: There is been no significant change since 11/14/2022, including postoperative changes in the right hemithorax, sternotomy wires and left atrial appendage clip. Chronically increased bronchovascular markings, and pleural parenchymal scarring at the right lung base are unchanged, as is a scar in the left mid to upper lung zone. XR/XR chest 2V IMPRESSION: No acute disease or significant interval change since 11/14/2022. Dictated By: Alfred Yeager MD Signed By: <Electronically signed by Alfred Yeager MD in OV> 07/31/23837 DD/ 9 TD/TT: Childcare Administrator: [place] [address] XRay Report Signed Patient: Angelia Goodman Sr MR#: [id number] : 1940 Acct:[id number] Age/Sex: 83 / M ADM Date: 07/31/23 Loc: [facility] Attending Dr: Jordan Gabriel MD Ordering Physician: Jordan Gabriel MD Date of Service: 07/31/23 Procedure(s): XR [facility] 2V Accession Number(s): [id number] cc: Jordan Gabriel MD EXAMINATION: XR CHEST 2 VIEW CLINICAL INFORMATION: Cough, fatigue COMPARISON: 11/14/2022 TECHNIQUE: PA and lateral views of the chest obtained. FINDINGS: There is been no significant change since 11/14/2022, including postoperative change s in the right hemithorax, sternotomy wires and left atrial appendag e clip. Chronically increased bronchovascular markings, and pleura l parenchymal scarring at the right lung base are unchanged, as is a s car in the left mid to upper lung zone. X R/XR chest 2V IMPRESSION: No acute disease or significant interval change since 11/14/2022. Dictated By: Ronnell Yeager MD Signed By: <Electronically signed by Alfred Yeager MD in OV> 07/31/23837 DD/ 9 TD/TT: Childcare Administrator: El Sandra. Panel Fa st Reviewed date:07/19/2023 07:42:56 PM Interpretation: Performing Lab:[facility], [address] [place] [phone] Notes/Report: Sodium 140 135-145 mmol/L Potassium 5.2 3.3-5.1 mmol/L Chloride 106 96-108 mmol/L Carbon Dioxide 24 22-29 mmol/L Anion Gap 15 12-20 Blood Urea Nitrogen 26 9-16 mg/dL Creatinine 1.52 0.5-1.4 mg/dL Estimated Glomerular Filt Rate 44 NOTE: For -Belgian individuals, multiply the result by 1.210. Chronic Kidney Disease: Estimated GFR < 60 mL/min/1.73m2 Severe Kidney Disease: Estimated GFR < 15 mL/min/1.73m2 Glucose Fasting 133 60-99 mg/dL A fasting glucose of 126 mg/dl or greater on more than one occasion is considered diagnostic of diabetes. Calcium 9.6 8.4-10.2 mg/dL Bilirubin Total 0.4 0.0-1.0 mg/dL Aspartate Amino Transferase 17 5-37 U/L Alanine Aminotransferase 15 0-40 U/L Total Protein 7.3 6.5-8.0 g/dL Albumin Level 4.3 3.5-5.0 g/dL Alkaline Phosphatase 65 39-117 U/L Hold Gold Reviewed date:07/19/2023 05:15:53 PM Interpretation: Performing Lab:[facility], [address] [place] [phone] Notes/Report: Hold Gold See Note Specimen held untested for 24 hours; Call to request Chemistry testing. CT chest wo con Reviewed date:08/29/2023 01:10:58 PM Interpretation: Performing Lab: Notes/Report: [place] [address] [address] Scan Report Signed with Addenda Patient: Anthony Goodman Sr MR#: [id number] : 1940 Acct:[id number] Age/Sex: 83 / M ADM Date: 08/13/23 Loc: HO.CT Attending Dr: Jannet Evans NP Ordering Physician: JANNET EVANS NP Date of Service: 08/13/23 Procedure(s): CT chest wo IV con Accession Number(s): [id number] cc: JANNET EVANS SUPERVISOR [employer]; Jordan Gabriel MD ADDENDUM Addendum: Findings discussed with Dr. Gabriel and 3 month follow-up is recommended for follow-up. Addendum Dictated By: Christine Mayen MD Addendum Signed By: <Electronically signed by Christine Mayen MD in OV> 08/29/23 1148 Addendum Cosigned By: DD/ TD/TT: / EXAMINATION: CT CHEST WITHOUT CONTRAST CLINICAL INFORMATION: History of right upper lung cancer COMPARISON: 08/28/2022 TECHNIQUE: Multidetector volumetric CT imaging of the chest was done. Axial MIP volume rendering provided. Sagittal and coronal reformatted images were obtained. This CT examination was performed using dose optimization techniques as appropriate, variously including the following: *Automated exposure control *Adjustment of mA and/or kV according to patient size (this includes techniques or standardized protocols for targeted exams where dose is matched to indication/reason for exam; i.e. 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 There is stable left upper lobe ill-defined scarring. Right lung is revealed subpleural 0.7 cm nodule.. MEDIASTINUM: The mediastinum is normal. CORONARY ARTERY CALCIFICATION: Patient is status post CABG PLEURA: There is no pleural effusion. No pleural mass or thickening. AXILLA: No lymphadenopathy. UPPER ABDOMEN: Unremarkable. OSSEOUS STRUCTURES: Patient is status post median sternotomy CT/CT chest wo IV con IMPRESSION: New since previous examination left lower lobe airspace disease and new left lower lobe nodule. Fleischner guidelines were followed. Dictated By: Christine Mayen MD Signed By: <Electronically signed by Christine Mayen MD in OV> 08/26/23 1631 DD/ 0800 TD/TT: Childcare Administrator: [address] [address] [address] Scan Report Signed with Addenda Patient: Angelia Goodman Sr MR#: [id number] : 1940 Acct:[id number] Age/Sex: 83 / M ADM Date: 08/13/23 Loc: HO.CT Attending Dr: Jannet Evans NP Ordering Physician: JANNET EVANS NP Date of Service: 08/13/23 Procedure(s): CT [facility] wo IV con Accession Number(s): [id number] cc: JANNET EVANS SUPERVISOR [employer] ; Jordan Gabriel MD ADDENDUM Addendum: Findings discussed with Dr. Gabriel and 3 month follow-up is recommended for follow-up. Addendum Dictated By : Christine Mayen MD Addendum Signed By: <Electronically signed by Christine Mayen MD in OV> 08/29/23 1148 Addendum Cosigned By: DD/ TD/TT: / EXAMINATION: CT CHEST WITHOUT CONTRAST CLINICAL INFORMATION: History of right upp er lung cancer COMPARISON: 08/28/2022 TECHNIQUE: Multidetector volume tric CT imaging of the chest was done. Axial MIP volume rendering provided. Sagittal and coronal reformatted images were obtained. This CT examination was performed using dose optimization techniques as appropriate, various ly including the following: *Automated exposure control *Adjustment of mA an d/or kV according to patient size (this includes techniques or standardized protocols for targeted exams where dose is matched to indication/reason for exam; i.e. 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 There is stable left upper lo be ill-defined scarring. Right lung is revealed subpleural 0.7 cm nodule.. MEDIASTINUM: The mediastinum is normal. CORONARY ARTERY CALCIFICATION: Patient is status post CABG PLEURA: There is no pleural effusion. No pleural mass or thickening. AXILLA: No lymphadenopathy. UPPER ABDOMEN: Unremarkable. OSSEOUS STRUCTURES: Patient is status post median sternotomy C T/CT chest wo IV con IMPRESSION: New since previous examination left lower lobe airspace disease and new left lower lobe nodule. Fleischner guideline s were followed. Dictated By: Christine Mayen MD Signed By: <Electronically signed by Christine Mayen MD in OV> 08/26/23 1631 DD/ 0800 TD/TT: Childcare Administrator: Glucose, Whole Blood Reviewed date:08/15/2023 12:25:41 PM Interpretation: Performing Lab:[facility], [address] [place] [phone] Notes/Report: Glucose, Whole Blood 100 60-115 mg/dL METER # : [id number] FL guidance in OR Reviewed date:10/12/2023 04:21:37 PM Interpretation: Performing Lab: Notes/Report: [address] [address] Fluoroscopy Report Signed Patient: Anthony Goodman Sr MR#: [id number] : 1940 Acct:[id number] Age/Sex: 83 / M ADM Date: 08/15/23 Loc: HO.SSS Attending Dr: Artemio Martines MD, PhD Ordering Physician: Artemio Martines MD, PhD Date of Service: 08/15/23 Procedure(s): FL guidance in OR Accession Number(s): [id number] cc: Jordan Gabriel MD; Artemio Martines MD, PhD EXAMINATION: XR FLUOROSCOPY WITH IMAGES CLINICAL INFORMATION: L4-L5 lumbar decompression. COMPARISON: None available. TECHNIQUE: Fluoroscopy Supervised By: Dr. Brian Martines. Fluoroscopy Time: 0.1 minute. Cumulative Dose: 2.86 mGy. DAP: 0.598 Gycm2. Images: 1. FINDINGS: Intraoperative fluoroscopy and spot films were performed during a procedure in the OR. A probe is seen at the L4-L5 level. Please see Dr. Brian Martnies's report for complete details. FL/FL guidance in OR IMPRESSION: Intraoperative fluoroscopy and spot films were obtained. Please see Dr. Brian Martines's report for complete details. Dictated By: Leonard Lancaster MD Signed By: <Electronically signed by Leonard Lancaster MD in OV> 10/12/23654 DD/ 4 TD/TT: Childcare Administrator: [place] [address] Fluoroscopy Report Signed Patient: Angelia Goodman Sr MR#: [id number] : 1940 Acct:[id number] Age/Sex: 83 / M ADM Date: 08/15/23 Loc: HO.[facility] Attending Dr: Kit Martines MD, PhD Ordering Physician: Artemio Martines MD, PhD Date of Service: 08/15/23 Procedure(s): FL guidance in OR Accession Number(s): [id number] cc: Jordan Gabriel MD; Artemio Martines MD, PhD EXAMINATION: XR FLUOROSCOPY WITH IMAGES CLINICAL INFORMATION: L4-L5 lumbar decompression. COMPARISON: None available. TECHNIQUE: Fluoroscopy Supervis ed By: Dr. Brian Martines. Fluoroscopy Time: 0. 1 minute. Cumulative Dose: 2.8 6 mGy. DAP: 0.598 Gycm2. Images: 1. FINDINGS: Intraoperative fluoroscopy and spot films were performed during a procedure in the OR. A probe is seen at the L4-L5 level. Please see Dr. Brian Martines's report for complete details. F L/FL guidance in OR IMPRESSION: Intraoperative fluoroscopy and spot films were obtained. Please see Dr. Brian Martines's report for complete details. Dictated By: Leonard Lancaster MD Signed By: <Electronically signed by Leonard Lancaster MD in OV> 10/12/23 0655 DD/ 0925 TD/TT: Diploma Pharmacy Technician ist: SS FL upper GI w air Reviewed date:09/24/2023 10:32:48 AM Interpretation:see back 09-24-2023 Performing Lab: Notes/Report: [address] [address] Fluoroscopy Report Signed Patient: Anthony Goodman Sr MR#: [id number] : 1940 Acct:[id number] Age/Sex: 83 / M ADM Date: 09/12/23 Loc: HO.XRAY Attending Dr: Jordan Gabriel MD Ordering Physician: Jordan Gabriel MD Date of Service: 09/12/23 Procedure(s): FL upper GI w air Accession Number(s): [id number] cc: Jordan Gabriel MD EXAMINATION: XR FLUOROSCOPY UPPER GI WITH AIR CLINICAL INFORMATION: Dysphagia COMPARISON: None TECHNIQUE: Fluoroscopic air contrast upper GI examination was performed utilizing standard techniques with thin and thick barium and effervescent granules. Numerous spot images were obtained. FINDINGS: An atrial appendage clip is noted. Median sternotomy wires are also present. Surgical clips are present in the left chest consistent with prior history of left lobectomy. Lateral cine images of the oropharynx and hypopharynx demonstrate normal swallow mechanism with normal epiglottic inversion and soft palate elevation. There is trace laryngeal penetration with thick barium. No tracheal penetration or subglottic aspiration identified. No nasopharyngeal reflux present. There is a midline diverticulum of the upper esophagus just below the cricopharyngeus suggestive of a Laimer's diverticulum. Mild cricopharyngeal achalasia is present. Dual and single contrast images of the esophagus demonstrate normal caliber and contour otherwise. Granular appearing mucosa is present, likely on the basis of erosive esophagitis. No evidence of mass, or large ulcerations identified. Esophageal peristalsis is mildly disorganized. A mild to moderately obstructing Schatzki's ring is present. A small type I hiatal hernia is present. No significant gastroesophageal reflux was seen during the course of the examination and on reflux views. Dual contrast and single contrast images of the stomach demonstrated a normal contour. The gastric rugal folds have a thickened appearance. There are multiple foci of contrast pooling in the fundus and body the stomach that may represents small superficial aphthous ulcers. No masses are seen. Contrast freely passed into the gastric antrum and duodenal bulb without delay. Single and air-contrast images of the duodenal bulb demonstrate no abnormality. The duodenal sweep has a normal appearance, course, and mucosal fold appearance. There is a third segment small diverticulum, and a small jejunal diverticulum. The imaged proximal jejunum has a normal fold pattern and caliber. FLUOROSCOPY TIME: 4 minutes 33 seconds Number of Spot Images: 12 Number of Cine: 15 DOSE AREA PRODUCT: 2893 uGy-m2 (microgray-meter squared) FL/FL upper GI w air IMPRESSION: 1. Trace laryngeal penetration with thick barium 2. 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 3. Mild cricopharyngeal achalasia is present. 4. A mild to moderately constricting Schatzki's ring is present. 5. Small type I hiatal hernia. 6. Thickened gastric rugal folds with multiple foci of contrast pooling in the fundus and body the stomach. These findings are suggestive of erosive gastritis. 7. Mild esophageal dysmotility. 8. Duodenal and jejunal diverticula. Recommend correlation with EGD. This procedure was performed by Jaydon El PA-C, and supervised by Dr. Wallace Dictated By: Jaydon El Signed By: <Electronically signed by Jaydon El in OV> 09/13/231822 <Electronically signed by Oseas Wallace MD in OV> 09/13/23 1826 DD/ 1043 TD/TT: Childcare Administrator: [address] [address] Fluoroscopy Report Signed Patient: Angelia Goodman Sr MR#: [id number] : 1940 Acct:[id number] Age/Sex: 83 / M ADM Date: 09/12/23 Loc: HO.XRAY Attending Dr: Jordan Gabriel MD Ordering Physician: Jordan Gabriel MD Date of Service: 09/12/23 Procedure(s): FL upp er GI w air Accession Number(s): [id number] cc: Jordan Gabriel MD EXAMINATION: XR FLUOROSCOPY UPPER GI WITH AIR CLINICAL INFORMATION: Dysphagia COMPARISON: None TECHNIQUE: Fluoroscopic air contrast upper GI examination was performed utilizing standard techniques with thin and thick barium and effervescent granules. Numerous s pot images were obtained. FINDINGS: An atrial appendage clip is noted. Median sternotomy wires are also present. Surgical cl ips are present in the left chest consistent with prior history of lef t lobectomy. Lateral cine images of the oropharynx and hypopharynx demonstrate normal swallow mecha nism with normal epiglottic inversion and soft palate elevation. Th ere is trace laryngeal penetration with thick barium. No tracheal penetration or subglottic aspiration identified. No nasopharyngeal reflu x present. There is a midline diverticulum of the upper esophagus just below the cricopharyngeus suggestive of a Laimer's diverticulum. Mild cricopharyngeal achalasia is present. Dual and single cont rast images of the esophagus demonstrate normal caliber and contour otherwise. Granular appearing mucosa is present, likely on the basis of erosive esophagitis. No evidence of mass, or large ulcerations identified. Esophageal peristalsis is mildly disorganized. A mild to moderately obstructing Schatzki's ring is present. A small type I hiata l hernia is present. No significant gastroesophageal ref lux was seen during the course of the examination and on reflux views. Dual contrast and si ngle contrast images of the stomach demonstrated a normal contour. The gastric rugal folds have a thickened appearance. There are multiple f oci of contrast pooling in the fundus and body the stomach that may represents small superficial aphthous ulcers. No masses are seen. Contrast freely passed into the gastric antrum and duodenal bulb withou t delay. Single and air-contr ast images of the duodenal bulb demonstrate no abnormality. The duodenal sweep has a normal appearance, course, and mucosal fold appeara nce. There is a third segment small diverticulum, and a small jejunal diverticulum. The imaged proximal jejunum has a normal fold pattern and caliber. FLUOROSCOPY TIME: 4 minutes 33 seconds Number of Spot Image s: 12 Number of Cine: 15 DOSE AREA PRODUCT: 2893 uGy-m2 (microgray-meter squared) F L/FL upper GI w air IMPRESSION: 1. Trace laryngeal penetration with thick barium 2. Small diverticulu m of the upper esophagus just below the cricopharyngeus suggestive of a Laimer's diverticulum. 3. Mild cricopharyng eal achalasia is present. 4. A mild to moderat hugo constricting Schatzki's ring is present. 5. Small type I hiat al hernia. 6. Thickened gastric rugal folds with multiple foci of contrast pooling in the fundus and phuong dy the stomach. These findings are suggestive of erosive gastritis. 7. Mild esophageal dysmotility. 8. Duodenal and jeju nal diverticula. Recommend correlatio n with EGD. This procedure was performed by Jaydon El PA-C, and supervised by Dr. Wallace Dictated By: Dwaine El Signed By: <Electronically signed by Jaydon El in OV> 09/13/231822 <Electronically sign ed by Oseas Wallace MD in OV> 09/13/231825 DD/ 1043 TD/TT: Childcare Administrator: Creatinine GFR POC Reviewed date:10/09/2023 02:07:02 PM Interpretation: Performing Lab:[facility], [address] [place] [phone] Notes/Report: [id number] 1.0 1.0 >60 >60 1550 1550 IMELDA SEGURA Creatinine POC 1.0 0.5-1.4 mg/dL See PC214 10/09/23 1347: * This is a corrected result * Creatinine POC previously reported as: 1.0 mg/dL Wrong result entered, corrected by BECCA GFR POC > 60 Chronic Kidney Disease: Estimated GFR < 60 mL/min/1.73m2 See PC214 Severe Kidney Disease: Estimated GFR < 15 mL/min/1.73m2 10/09/23 1347: * This is a corrected result * Creatinine POC previously reported as: 1.0 mg/dL Wrong result entered, corrected by BECCA Chronic Kidney Disease: Estimated GFR < 60 mL/min/1.73m2 Severe Kidney Disease: Estimated GFR < 15 mL/min/1.73m2 Creatinine POC TNP 0.5-1.4 mg/dL See PC214 10/09/23 1347: * This is a corrected result * Creatinine POC previously reported as: 1.0 mg/dL Wrong result entered, corrected by BECCA GFR POC TNP Chronic Kidney Disease: Estimated GFR < 60 mL/min/1.73m2 See PC214 Severe Kidney Disease: Estimated GFR < 15 mL/min/1.73m2 10/09/237: * This is a corrected result * Creatinine POC previously reported as: 1.0 mg/dL Wrong result entered, corrected by BECCA Chronic Kidney Disease: Estimated GFR < 60 mL/min/1.73m2 Severe Kidney Disease: Estimated GFR < 15 mL/min/1.73m2 CO RRECTED REPORT CT chest w con Reviewed date:10/24/2023 12:56:33 PM Interpretation: Performing Lab: Notes/Report: [address] [address] [address] Scan Report Signed Patient: Anthony Goodman MR#: [id number] : 1940 Acct:[id number] Age/Sex: 83 / M ADM Date: 10/08/23 Loc: HO.CT Attending Dr: Jannet Evans NP Ordering Physician: JANNET EVANS NP Date of Service: 10/08/23 Procedure(s): CT chest w IV con Accession Number(s): [id number] cc: JANNET EVANS NP; Jordan Gabriel MD EXAMINATION: CT CHEST WITH CONTRAST CLINICAL INFORMATION: Lung carcinoma. COMPARISON: 08/25/2022 and 08/13/2023. TECHNIQUE: Multidetector volumetric CT imaging of the chest was obtained after the administration of 65 mL of Omnipaque 350 intravenous contrast without immediate adverse reactions. Axial MIP volume rendering provided. Sagittal and coronal reformatted images were obtained. This CT examination was performed using dose optimization techniques as appropriate, variously including the following: *Automated exposure control *Adjustment of mA and/or kV according to patient size (this includes techniques or standardized protocols for targeted exams where dose is matched to indication/reason for exam; i.e. extremities or head) *Use of iterative reconstruction technique DLP: 144 mGy-cm FINDINGS: LUNGS AND PLEURA: Linear opacity from mucus along the posterior tracheal wall. Mild centrilobular and paraseptal emphysema. The bronchial garcia are diffusely, mildly thickened. Postoperative changes from right upper lobectomy and left upper lobe wedge resection. The irregular subpleural nodular opacity at the lateral right lower lobe seen on 08/13/2023 has nearly completely resolved; minimal residual groundglass attenuation is present, suggesting that the prior observation was from inflammatory or infectious change (image 101, series 5). Significant improvement in previously seen patchy airspace disease in the left lower lobe. A nodular focus that previously measured 0.8 x 1.1 cm in the medial left lower lobe has significantly diminished and has a more linear appearance; the residual opacity is approximately 0.4 x 0.7 cm. A residual opacity in the posteroinferior left lower lobe of 1.6 cm transverse dimension has developed a more linear appearance on the coronal and sagittal reformatted images. This is consistent with resolving infectious/inflammatory change. There are no new infiltrates. Chronic findings include several old scattered opacities of scarring and old clustered calcified nodules in the posterolateral left lower lobe and within the right lower lobe. CARDIOVASCULAR: Cardiac chambers are in the normal size range. No pericardial effusion. Left atrial appendage clip. Thoracic aorta atherosclerosis without aneurysm. Atherosclerotic calcification of coronary arteries, status post coronary artery bypass graft surgery. Pulmonary arteries are unremarkable. MEDIASTINUM AND LOWER NECK: No mediastinal mass. The visualized portion of the thyroid gland is normal. The esophagus has normal wall thickness. A very small sliding-type hernia is noted. LYMPHATICS: No pathologic sized lymph nodes. UPPER ABDOMEN: Status post cholecystectomy. There appear to be a few old small cysts of the liver. SKELETAL AND CHEST WALL: No acute or suspicious osseous abnormality. Moderate spondylosis of the thoracic spine. Old healed fracture of left lateral 10th rib. 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 CT/CT chest w IV con IMPRESSION: * Mild pulmonary emphysema. * Post surgical changes from prior right upper lobectomy and left upper lobe wedge resection. * Significant improvement in some of the previously seen lower lobe opacities from infectious/inflammatory disease. There is no evidence of a suspicious lung nodule, mass or lymphadenopathy on this follow-up examination. Dictated By: Tommie King MD Signed By: <Electronically signed by Tommie King MD in OV> 10/24/23 0848 DD/ 1618 TD/TT: Childcare Administrator: [place] [address] CT Scan Report Signed Patient: Angelia Goodman MR#: [id number] : 1940 Acct:[id number] Age/Sex: 83 / M ADM Date: 10/08/23 Loc: HO.CT Attending Dr: Jannet Evans NP Ordering Physician: JANNET EVANS NP Date of Service: 10/08/23 Procedure(s): CT [facility] w IV con Accession Number(s): [id number] cc: JANNET EVANS NP ; Jordan Gabriel MD EXAMINATION: CT CHEST WITH CONTRAST CLINICAL INFORMATION: Lung carcinoma. COMPARISON: 08/25/2022 and 08/13/2023. TECHNIQUE: Multidetector volume tric CT imaging of the chest was obtained after the administration of 65 mL of Omnipaque 350 intravenous contrast without immediate adverse reactions. Axial MIP volume rendering provided. Sagittal and coronal reformatted images were obtained. This CT examination was performed using dose optimization techniques as appropriate, various ly including the following: *Automated exposure control *Adjustment of mA an d/or kV according to patient size (this includes techniques or standardized protocols for targeted exams where dose is matched to indication/reason for exam; i.e. extremities or head) *Use of iterative reconstruction technique DLP: 144 mGy-cm FINDINGS: LUNGS AND PLEURA: Li near opacity from mucus along the posterior tracheal wall. Mild centrilobular and paraseptal emphysema. The bronchial garcia are diffusely, mildly thickened. Postoperative changes from right upper lobectomy and left upper lobe wedge resection. The irregular subpleural nodular opacity at the lateral right lower lobe seen on 08/13/2023 h as nearly completely resolved; minimal residual groundglass attenuat ion is present, suggesting that the prior observation was from inflammatory or infectious change (image 101, series 5). Significant improvem ent in previously seen patchy airspace disease in the left lower lobe. A nodular focus that previously measured 0.8 x 1.1 cm in the medial lef t lower lobe has significantly diminished and has a more linear appearan ce; the residual opacity is approximately 0.4 x 0.7 cm. A residual opaci ty in the posteroinferior left lower lobe of 1.6 cm transverse dimension has developed a more linear appearance on the coronal and sagittal reformatted images. This is consistent with resolving infectious/inflammatory change. There are no new infiltrates. Chronic findings inc lude several old scattered opacities of scarring and old clustered calcified nodules in the posterolateral left lower lobe and within the right lower lobe. CARDIOVASCULAR: Card iac chambers are in the normal size range. No pericardial effusion . Left atrial appendage clip. Thoracic aorta atherosclerosis with out aneurysm. Atherosclerotic calcification of coronary arteries, status post coronary artery bypass graft surgery. Pulmonary arteries a re unremarkable. MEDIASTINUM AND LOWE R NECK: No mediastinal mass. The visualized portion of the thyroid gland is normal. The esophagus has normal wall thickness. A very sm all sliding-type hernia is noted. LYMPHATICS: No pathologic sized lymph nodes. UPPER ABDOMEN: Statu s post cholecystectomy. There appear to be a few old small cysts of t he liver. SKELETAL AND CHEST W ALL: No acute or suspicious osseous abnormality. Moderate spondylosis of the thoracic spine. Old healed fracture of left lateral 10th rib. Postthoracotomy heterotopic ossification between the posterior right sixt h and seventh ribs. C T/CT chest w IV con IMPRESSION: * Mild pulmonary emphysema. * Post surgical polo ges from prior right upper lobectomy and left upper lobe wedge resection. * Significant improvement in some of the previously seen lower lobe opacities from infectious/inflammatory disease. There is no evidence of a suspicious lung nodule, mass or lymphadenopathy on this follow-up examination. Dictated By: Tommie King MD Signed By: <Electronically signed by Tommie King MD in OV> 10/24/23 0848 DD/ 1618 TD/TT: Diploma Pharmacy Technician ist: PD Creatinine GFR POC Reviewed date:10/09/2023 02:07:12 PM Interpretation: Performing Lab:[facility], [address] [place] [phone] Notes/Report: [id number] 1.30 56 1550 HOMARGI Creatinine POC 1.3 0.5-1.4 mg/dL GFR POC 56 Chronic Kidney Disease: Estimated GFR < 60 mL/min/1.73m2 Severe Kidney Disease: Estimated GFR < 15 mL/min/1.73m2 Complete Blood Count no Diff Reviewed date:02/04/2024 01:50:25 PM Interpretation: Performing Lab:[facility], [address] [place] [phone] Notes/Report: White Blood Count 7.2 4.8-10.8 X10*3/uL Red Blood Count 3.42 4.60-5.80 X10*6/uL Hemoglobin 9.6 14.0-18.0 g/dl Hematocrit 30.2 42.0-52.0 % Mean Corpuscular Volume 88.3 80.0-98.0 fL Mean Corpuscular Hemoglobin 28.1 27.0-33.0 pg Mean Corpuscular HGB Conc 31.8 31.0-36.0 g/dl Red Cell Distribution Width 14.6 11.0-16.0 % Platelet Count 261 160-400 X10*3/uL Mean Platelet Volume 9.5 9.4-12.4 fL NRBC Pct Auto 0.0 0.0-0.2 /100WBC NRBC Abs Auto 0.000 0.0-0.012 X10*3/uL Basic Metabolic Panel Reviewed date:02/04/2024 01:50:04 PM Interpretation: Performing Lab:[address] [phone] Notes/Report: Sodium 138 135-145 mmol/L Potassium 4.9 3.3-5.1 mmol/L Chloride 108 96-108 mmol/L Carbon Dioxide 23 22-29 mmol/L Anion Gap 12 12-20 Blood Urea Nitrogen 28 9-16 mg/dL Creatinine 1.25 0.5-1.4 mg/dL Creatinine Clr Calc Pharmacy 52.3 eGFR (calculated from the MDRD study equation) and eCrCl (calculated from the Cockcroft-Gault equation) are based on different parameters and may not yield comparable results. If eCrCl result is absurd, please check patient's height/weight. Estimated Glomerular Filt Rate 55 Chronic Kidney Disease: Estimated GFR < 60 mL/min/1.73m2 Severe Kidney Disease: Estimated GFR < 15 mL/min/1.73m2 Glucose Random 107 60-115 mg/dL Calcium 9.0 8.4-10.2 mg/dL Ferritin Reviewed date:02/04/2024 12:53:47 PM Interpretation: Performing Lab:[facility], [address] [place] [phone] Notes/Report: Ferritin 21 20-250 ng/mL Lactate Dehydrogenase Reviewed date:02/04/2024 12:50:52 PM Interpretation: Performing Lab:[facility], [address] [place] [phone] Notes/Report: Lactate Dehydrogenase 155 118-273 U/L Complete Blood Count Auto Di ff Reviewed date:04/07/2024 05:05:38 PM Interpretation: Performing Lab:[address] [phone] Notes/Report: White Blood Count 7.3 4.8-10.8 X10*3/uL Red Blood Count 3.62 4.60-5.80 X10*6/uL Hemoglobin 10.5 14.0-18.0 g/dl Hematocrit 31.5 42.0-52.0 % Mean Corpuscular Volume 87.0 80.0-98.0 fL Mean Corpuscular Hemoglobin 29.0 27.0-33.0 pg Mean Corpuscular HGB Conc 33.3 31.0-36.0 g/dl Red Cell Distribution Width 14.5 11.0-16.0 % Platelet Count 304 160-400 X10*3/uL Mean Platelet Volume 9.2 9.4-12.4 fL Neutrophils Percent Auto 62.8 45-73 % Imm Gran Pct Auto 0.3 0.0-0.4 % Lymphocytes Percent Auto 21.4 20-40 % Monocytes Percent Auto 7.7 2-11 % Eosinophils Percent Auto 6.7 0-4 % Basophils Percent Auto 1.1 0-2 % NRBC Pct Auto 0.0 0.0-0.2 /100WBC Neutrophils Absolute Auto 4.6 2.0-8.3 x10*3/u L Imm Gran Abs Auto 0.02 0.00-0.03 X10*3/uL Lymphocytes Absolute Auto 1.6 1.2-4.9 X10*3/u L Monocytes Absolute Auto 0.6 0.1-1.2 X10*3/uL Eosinophils Absolute Auto 0.5 0.0-0.4 X10*3/u L Basophils Absolute Auto 0.1 0.0-0.2 X10*3/uL NRBC Abs Auto 0.000 0.0-0.012 X10*3/uL Ferritin Reviewed date:04/07/2024 04:41:39 PM Interpretation: Performing Lab:[facility], [address] [place] [phone] Notes/Report: Ferritin 30 20-250 ng/mL Lactate Dehydrogenase Reviewed date:04/07/2024 05:05:11 PM Interpretation: Performing Lab:[facility], [address] [place] [phone] Notes/Report: Lactate Dehydrogenase 165 118-273 U/L Aimee Danielle Reviewed date:05/12/2024 12:08:08 PM Interpretation: Performing Lab:[facility], [address] [place] [phone] Notes/Report: Aimee Danielle See Note Specimen held untested for 24 hours; Call to request Chemistry testing. CT chest wo con Reviewed date:05/14/2024 08:55:12 AM Interpretation: Performing Lab: Notes/Report: [address] [address] [address] Scan Report Signed Patient: Anthony Goodman Sr MR#: [id number] : 1940 Acct:[id number] Age/Sex: 84 / M ADM Date: 05/13/24 Loc: HO.CT Attending Dr: Jannet Evans NP Ordering Physician: JANNET EVANS NP Date of Service: 05/13/24 Procedure(s): CT chest wo IV con Accession Number(s): [id number] cc: JANNET EVANS NP; Jordan Gabriel MD Report Number: [id number]: Total DLP = 168.00 mGy-cm EXAMINATION: CT CHEST WITHOUT CONTRAST CLINICAL INFORMATION: Follow-up exam after treatment for lung carcinoma. COMPARISON: 10/08/2023. 08/13/2023. TECHNIQUE: Multidetector volumetric CT imaging of the chest was done. Axial MIP volume rendering provided. Sagittal and coronal reformatted images were obtained. This CT examination was performed using dose optimization techniques as appropriate, variously including the following: *Automated exposure control *Adjustment of mA and/or kV according to patient size (this includes techniques or standardized protocols for targeted exams where dose is matched to indication/reason for exam; i.e. extremities or head) *Use of iterative reconstruction technique FINDINGS: LUNGS: -Pulmonary emphysema, unchanged. -Right upper lobe resection. -Left upper lobe wedge resection with suture line present. -Diffuse small airway thickening is again noted throughout both lungs. -There is linear scarring in the right lateral base with numerous tiny calcifications. Subpleural scarring and ossifications left lateral base. -Previously seen nodular airspace opacity in the left costophrenic sulcus has resolved. -4 mm nodule abutting the left lateral major fissure is consistent with an intrapulmonary lymph node. -Currently there are no suspicious pulmonary nodules present. MEDIASTINUM: -Prior median sternotomy and probable CABG. -Mild left atrial enlargement. Left atrial appendage clip. -Main pulmonary artery is enlarged suggesting pulmonary arterial hypertension. -Moderate to severe atheromatous calcification of the aorta, which is mildly uncoiled and mildly tortuous. No aneurysm. -There is no mediastinal lymphadenopathy. A 9 mm subcarinal lymph node is stable and unchanged from the most recent prior exam, and smaller when compared with 08/13/2023. -Mild diffuse thickening of the esophagus noted, with a type hiatus hernia the GE junction. -Thyroid is normal. PLEURA: There is no pleural effusion. No pleural mass or thickening. AXILLA: No lymphadenopathy. UPPER ABDOMEN: -The liver demonstrates approximately 3 poorly defined hypoattenuating subcentimeter foci, the largest in segment 4B measuring 9 mm. These appear stable/ unchanged. -There has been a cholecystectomy. -Type 1 hiatus hernia. OSSEOUS STRUCTURES: -No suspicious lytic or blastic bone lesions. -Median sternotomy. Sternal wires intact. -Mild degenerative spondylosis of the spine. -Postop changes fifth and sixth right posterior ribs. Old healed fracture left lateral 10th rib. CT/CT chest wo IV con IMPRESSION: 1. Pulmonary emphysema, unchanged. Postop right upper lobe resection and left upper lobe wedge resection. Stable mild diffuse airway thickening. 2. No persistent suspicious pulmonary nodules. Previously seen linear and nodular left base opacities have resolved. No new or enlarging nodules seen. 3. Stable bibasilar scarring with tiny calcifications. 4. No abnormal mediastinal lymphadenopathy. A 9 mm subcarinal node has continued to decrease in size from 08/13/2023. 5. Prior CABG, with left atrial appendage clip. There is enlargement of the left atrium. 6. Findings suggesting pulmonary arterial hypertension. 7. Additional ancillary findings as discussed in the body of the report. Electronically signed by: Oseas Wallace MD 05/13/2024 11:42 AM EST Dictated By: Oseas Wallace MD Signed By: <Electronically signed by Oseas Wallace MD in OV> 05/13/24 1142 DD/ 1109 TD/TT: 05/13/24 1119 Childcare Administrator: [address] [address] [address] Scan Report Signed Patient: Angelia Goodman Sr MR#: [id number] : 1940 Acct:[id number] Age/Sex: 84 / M ADM Date: 05/13/24 Loc: HO.CT Attending Dr: Jannet Evans NP Ordering Physician: JANNET EVANS NP Date of Service: 05/13/24 Procedure(s): CT [facility] wo IV con Accession Number(s): [id number] cc: JANNET EVANS NP ; Jordan Gabriel MD Report Number: [id number]: Total DLP = 168.00 mGy-cm EXAMINATION: CT CHEST WITHOUT CONTRAST CLINICAL INFORMATION: Follow-up exam after treatment for lung carcinoma. COMPARISON: 10/08/2023. 08/13/2023. TECHNIQUE: Multidetector volume tric CT imaging of the chest was done. Axial MIP volume rendering provided. Sagittal and coronal reformatted images were obtained. This CT examination was performed using dose optimization techniques as appropriate, various ly including the following: *Automated exposure control *Adjustment of mA an d/or kV according to patient size (this includes techniques or standardized protocols for targeted exams where dose is matched to indication/reason for exam; i.e. extremities or head) *Use of iterative reconstruction technique FINDINGS: LUNGS: -Pulmonary emphysema , unchanged. -Right upper lobe resection. -Left upper lobe wed ge resection with suture line present. -Diffuse small airwa y thickening is again noted throughout both lungs. -There is linear scarring in the right lateral base with numerous tiny calcifications. Subpleural scarring and ossifications left lateral base. -Previously seen nod ular airspace opacity in the left costophrenic sulcus has resolved. -4 mm nodule abuttin g the left lateral major fissure is consistent with an intrapulmonary ly mph node. -Currently there are no suspicious pulmonary nodules present. MEDIASTINUM: -Prior median sterno jessy and probable CABG. -Mild left atrial enlargement. Left atrial appendage clip. -Main pulmonary johnathan ry is enlarged suggesting pulmonary arterial hypertension. -Moderate to severe atheromatous calcification of the aorta, which is mildly uncoiled and mildly tortuous. No aneurysm. -There is no mediast inal lymphadenopathy. A 9 mm subcarinal lymph node is stable and unchan ged from the most recent prior exam, and smaller when compared with 08/13/2023. -Mild diffuse thicke phillip of the esophagus noted, with a type hiatus hernia the GE junction. -Thyroid is normal. PLEURA: There is no pleural effusion. No pleural mass or thickening. AXILLA: No lymphadenopathy. UPPER ABDOMEN: -The liver demonstra michelle approximately 3 poorly defined hypoattenuating subcentimeter foci, the largest in segment 4B measuring 9 mm. These appear stable/ unchanged. -There has been a cholecystectomy. -Type 1 hiatus hernia. OSSEOUS STRUCTURES: -No suspicious lytic or blastic bone lesions. -Median sternotomy. Sternal wires intact. -Mild degenerative spondylosis of the spine. -Postop changes fift h and sixth right posterior ribs. Old healed fracture left latera l 10th rib. C T/CT chest wo IV con IMPRESSION: 1. Pulmonary emphyse ma, unchanged. Postop right upper lobe resection and left upper lobe wedge resection. Stable mild diffuse airway thickening. 2. No persistent suspicious pulmonary nodules. Previously seen linear and nodular left bas e opacities have resolved. No new or enlarging nodules seen. 3. Stable bibasilar scarring with tiny calcifications. 4. No abnormal mediastinal lymphadenopathy. A 9 mm subcarinal node has continued to decreas e in size from 08/13/2023. 5. Prior CABG, with left atrial appendage clip. There is enlargement of the left atrium. 6. Findings suggesti ng pulmonary arterial hypertension. 7. Additional ancill patricia findings as discussed in the body of the report. Electronically cole d by: Oseas Wallace MD 05/13/2024 11:42 AM [facility] [place] Dictated By: Oseas Wallace MD Signed By: <Electronically signed by Oseas Wallace MD in OV> 05/13/24 1142 DD/ 1109 TD/TT: 05/13/24 1119 Childcare Administrator: Reason For Referral Reason please [email or web address] tovar [...] Referral Priority Routine Referral Appointment Date 07/01/2024 Medications Medication SIG (Take, Route, Frequency, Duration) Notes Start Date End Date Status Nystatin 807836 UNIT/GM 1 application Externally Twice a day for 14 days 04/28/2019 Active metFORMIN HCl 500 MG TAKE 1 TABLET BY MO [facility] TWICE A DAY WITH MEALS for 90 Active Xarelto 20 MG 1 tablet with food Orally Once a day Active Albuterol Sulfate HFA 108 (90 Base) MCG/ACT 1 puff as needed Inhalation every 4 hrs 04/13/2022 Active Symbicort 160-4.5 MCG/ACT 2 puffs Inhala tion Twice a day for 30 days 11/14/2017 Not-Guillermo oh Lisinopril 20 MG TAKE 1 TABLET BY JANETH EVERY DAY for 90 Active Ventolin HFA 108 (90 Base) MCG/ACT 2 puffs as needed Inhalation every 4 hrs Not-Owen tinoco FreeStyle Lite 0 as directed invitro DX: E 11.9 once a day for 30 days 01/17/2016 Active Omeprazole 20 MG 1 capsule Orally Onc e a day Active Ferrous Sulfate 325 (65 Fe) MG 1 tablet Orally BID Active FreeStyle Lite Test 0 as directed In Vit ro DX: E 11.9 use tot test blood sugar once a day for 30 days 01/17/2016 Active Benadryl Allergy 25 MG 1 tablet as neede d Orally every 8 hrs Not-Taking Atorvastatin Calcium 80 MG 1 tablet Orally Once a day Active Immunizations Vaccine Route Administration Date Status Comme nts Flu Vaccine Unknown 01/10/2012 Administered given at [facility] PPSV23 (Pnemovax) Unknown 01/10/2012 Administered given at [facility] [place] [place] Flu Vaccine Unknown 01/07/2014 Administered Flu Vaccine Unknown 12/31/2013 Administered received at [facility] [place] Prevnar 13 IM Intramuscular 08/20/2014 Administered Flu Vaccine IM Intramuscular 12/22/2014 Administered pt re cieved high dose flu vaccine at [facility], Fluarix Quadrivalent Unknown 12/21/2015 Administered Wa jair's at [facility] Unknown 01/26/2015 Administered [facility] Fluarix Quadrivalent IM Intramuscular 12/06/2016 Adminvidya pearl PPSV23 (Pnemovax) IM Intramuscular 04/15/2017 Administered Influenza High Dose Unknown 12/17/2017 Administered [facility] Fluarix Quadrivalent IM Intramuscular 12/19/2018 Administe red pt was given the vaccine at [facility] in [place]. Influenza High Dose IM Intramuscular 12/04/2019 Administer ed Covid Vaccine Unknown 04/28/2020 Administered Pfizer SARS-COV-2 Pfizer Unknown 05/23/2020 Administered SARS-COV-2 Pfizer Unknown 05/23/2020 Administered Influenza High Dose IM Intramuscular 12/15/2020 Administer ed SARS-COV-2 Pfizer Unknown 02/13/2021 Administered [facility] Influenza High Dose IM Intramuscular 12/05/2021 Administer ed Influenza High Dose IM Intramuscular 12/04/2022 Administer ed RSV Unknown 02/25/2023 Administered [facility] Influenza High Dose IM Intramuscular 12/09/2023 Administer ed Social History Tobacco Use: Social History Observation [...] ast year? 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) Active confirmed Problem Chronic obstructive pulmonary disease with acute lower respiratory infection (865283714) COPD (chronic obstructive pulmonary disease) with acute bronchitis (J44.0) Active confirmed Problem 14164558 Iron deficiency anemia, unspecified iron deficiency anemia type (D50.9) Active confirmed Problem Claudication (65924211) Claudication (I73.9) Active confirmed Problem 457009913 Adenoma (D36.9) Active confirmed Problem 3138653039491173 Acute idiopathi c gout involving toe of left foot (M10.072) Active confirmed Problem 81907464 Lymphadenopathy, mediastinal (R59.0) Active confirmed Problem 272421130 Rising PSA level (R97.20) Active confirmed Problem 194862916 History of calcu leonard of gallbladder (Z87.19) Active confirmed Problem 868550004 Pure hypercholesterolemia (E78.00) Active confirmed Problem Gout (87211778) Acute gout of le ft foot, unspecified cause (M10.9) Active confirmed Problem 34976521 Hip arthritis (M16.10) Active confirme d Problem 455401000 Adenocarcinoma o f lung, 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) Active confirmed Problem 325764006 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 Problem 143126671 Esophageal dysfu nction (K22.4) Active confirmed Problem 185655929 Lower esophageal ring (Schatzki) (K22.2) Active confirmed Vital Signs Blood pressure diastolic 60 mm Hg 05/19/2024 Height 71 in 05/19/2024 Blood pressure systolic 142 mm Hg 05/19/2024 Weight 206 lbs 05/19/2024 BMI 28.73 kg/m2 05/19/2024 Encounters Encounter Location Date Provider Diagnosis Jordan Gabriel MD [address] [place] [address] [id number] 11/08/2023 Jordan Gabriel Type 2 diabetes mina itus without complications E11.9 ; Pure hypercholesterolemia E78.00 ; Iron deficiency anemia, unspecified iron deficiency anemia type D50.9 and Essential hypertension I10 Jordan Gabriel MD [address] [place] [address] [id number] 12/09/2023 Jordan Gabriel Encounter for immuni zation Z23 Jordan Gabriel MD [address] [place] [address] [id number] 12/16/2023 Jordan Gabriel Chronic hyperkalemia E87.5 Jordan Gabriel MD [address] [place] [address] [id number] 05/12/2024 Jordan Gabriel Type 2 diabetes mina itus without complications E11.9 and Pure hypercholesterolemia E78.00 Jordan Gabriel MD [address] [place] [address] [id number] 07/19/2023 Jordan Gabriel Preop testing Z01.81 8 and Esophageal dysphagia R13.19 Jordan Gabriel MD [address] [place] [address] [id number] 07/25/2023 Jordan Gabriel Paroxysmal atrial fibrillation I48.0 Jordan Gabriel MD [address] [place] [address] [id number] 09/24/2023 Jordan Gabriel Lower esophageal rin g (Amandaki) K22.2 and Esophageal dysfunction K22.4 Jordan Gabriel MD [address] [place] [address] [id number] 11/15/2023 Jordan Gabriel Chronic hyperkalemia E87.5 ; Type 2 diabetes mellitus without complications E11.9 ; Pure hypercholesterolemia E78.00 ; Paroxysmal atrial fibrillation I48.0 ; Esophageal dysfunction K22.4 ; Essential hypertension I10 ; Iron deficiency anemia, unspecified iron deficiency anemia type D50.9 ; COPD (chronic obstructive pulmonary disease) with acute bronchitis J44.0 ; Colon cancer screening Z12.11 and Depression screening Z13.31 Jordan Gabriel MD [address] [place] [address] [id number] 05/19/2024 Jordan Gabriel Encounter for genera l adult medical examination with abnormal findings Z00.01 ; Esophageal dysfunction K22.4 ; Pure hypercholesterolemia E78.00 and Type 2 diabetes mellitus without complications E11.9 Jordan Gabriel MD [address] [place] [address] [id number] 07/30/2023 Jordan Gabriel MD [address] [place] [address] [id number] 07/30/2023 Jordan Gabriel Cough R05.9 and Fati louise R53.83 Jordan Gabriel MD [address] [place] [address] [id number] 08/15/2023 Jordan Gabriel MD [address] [place] [address] [id number] 09/06/2023 Jordan Gabriel MD [address] [place] [address] [id number] 10/24/2023 Jordan Gabriel Adenocarcinoma of caitlyn ng, left C34.92 Jordan Gabriel MD [address] [place] [address] [id number] 12/10/2023 Jordan Gabriel 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 Assessments Encounter Date Diagnosis (ICD Code) Assessment Notes Treatment Notes Treatment Clinical Notes Section Notes 11/08/2023 Type 2 diabetes mellitus without complications (ICD-10 - E11.9) 11/08/2023 Pure hypercholesterolemia (ICD-10 - E78.00) 12/09/2023 Encounter for immunization (ICD-10 - Z23) 12/16/2023 Chronic hyperkalemia (ICD-10 - E87.5) 05/12/2024 Type 2 diabetes mellitus without complications (ICD-10 - E11.9) 07/19/2023 Preop testing (ICD-1 0 - Z01.818) was cleared by dr padilla cardiac. i find no evidence for any further evaluation from my perspective prior to the upcoming surgery 07/19/2023 Esophageal dysphagia (ICD-10 - R13.19) THE ORDER HAS BEEN FAXED TO [place] [place] [place] [facility] , TEST SCHEDULED FOR SEPTEMBER 11 @ 10 AM, PATIENT INFORMED 07/25/2023 Paroxysmal atrial fibrillation (ICD-10 - I48.0) hold atorvastin for 2 weeks, patient verbalized understanding of medication and directions for use 09/24/2023 Lower esophageal rin g (Cain) (ICD-10 - K22.2) discussed findings of UGI with patient and , is not happening very often so will just observe 09/24/2023 Esophageal dysfuncti on (ICD-10 - K22.4) having some burping, will continue to monitor 11/15/2023 Chronic hyperkalemia (ICD-10 - E87.5) pending labs 11/15/2023 Type 2 diabetes mellitus without complications (ICD-10 - E11.9) stable, will continue current regiment 05/19/2024 Encounter for genera l adult medical examination with abnormal findings (ICD-10 - Z00.01) 05/19/2024 Esophageal dysfuncti on (ICD-10 - K22.4) referral to dr curry 10/24/2023 Adenocarcinoma of caitlyn ng, left (ICD-10 - C34.92) order made and put into the future order folder for . 12/10/2023 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) 11/08/2023 Iron deficiency anem ia, unspecified iron deficiency anemia type (ICD-10 - D50.9) 05/12/2024 Pure hypercholesterolemia (ICD-10 - E78.00) 11/15/2023 Pure hypercholesterolemia (ICD-10 - E78.00) doing well, will continue current regiment 05/19/2024 Pure hypercholesterolemia (ICD-10 - E78.00) has good numbers 07/30/2023 Cough (ICD-10 - R05.9) order made and faxed to [facility] Patient notified. 11/08/2023 Essential hypertensi on (ICD-10 - I10) 11/15/2023 Paroxysmal atrial fibrillation (ICD-10 - I48.0) stable, will continue current regiment 05/19/2024 Type 2 diabetes mellitus without complications (ICD-10 - E11.9) 07/30/2023 Fatigue (ICD-10 - R53.83) 11/15/2023 Esophageal dysfuncti on (ICD-10 - K22.4) stable, will continue current regiment 11/15/2023 Essential hypertensi on (ICD-10 - I10) stable, will cintinue current regiment 11/15/2023 Iron deficiency anem ia, unspecified iron deficiency anemia type (ICD-10 - D50.9) a bit low, will continue current regiment and will continue to monitor 11/15/2023 COPD (chronic obstructive pulmonary disease) with acute bronchitis (ICD-10 - J44.0) doing well, will continue current regiment 11/15/2023 Colon cancer screeni ng (ICD-10 - Z12.11) guaiac negative 11/15/2023 Depression screening (ICD-10 - Z13.31) negative screen 09/24/2023 Other Total time spen t on the date of the encounter is 35 minutes including both face to face time spent and time spent reviewing documentation, pertinent lab data, studies and counseling the patient. 11/15/2023 Other Total time spen t on the date of the encounter is 45 minutes including both face to face time spent and time spent reviewing documentation, and counseling the patient. Plan Of Treatment Pending Test Test Name Order Date Electrocardiogram (EKG) 07/21/2013 XR CHEST 2 VIEW PA & LAT 11/13/2022 XR GI SERIES 07/19/2023 PFT 08/20/2014 CT chest w con 10/24/2023 US venous duplex LE LT 08/23/2020 CBC (INCLUDES DIFF/PLT) 08/30/2020 BUN 08/30/2020 CREATININE 08/30/2020 Next Appt Details Provider Name:Jordan Cyr ier, 11/10/2024 08:00:00 AM, [address], [address], [place], [place], [phone], Provider Name:Jordan Cyr ier, 11/17/2024 10:30:00 AM, [address], [address], [place], [place], [phone], Provider Name:Jordan Cyr ier, 05/21/2025 01:45:00 PM, [address], [address], [place], [place], [phone], Insurance Providers Payer Name Payer Address Payer Phone Subscriber Number Group Number Insured Name Patient Relationship to Insured Coverage Start Date Coverage End Date MEDICARE NHIC [address] [place] [address] [id number] Anthony Goodman Self - patient is the insured [employer] [address] [place], [place] [id number] Maxine Anthony Self - patient is the insured Medical (General) History Medical History History ICD Code HAS ENLARGED LYMPH NODE IN P ANIBAL ESOPH AREA. had repeat ct of chest 2012 and no change COLONOSCOPY 09/08/12 - repeat in 3 years; colonoscopy done 07/03/16 w/Dr. Curry - probably uwon't need another upper and lower endo 12/13 cancer of larynx 2006 surgery and radiat ion hematuria work up [address] dr pate/repeat Cystoscopy by Dr. 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
--- OUTSIDE RECORDS SUMMARY | 2024-07-02 06:43 | XMS_ITS ---
Author Organization Jordan Gabriel MD Address [address] [place] [phone] Care Team Providers Care Rock Loader Name Role Phone Jordan Gabriel Primary Care Provider Results Component Value Reference Range Notes Liver Panel Reviewed date:05/12/2024 04:52:54 PM Interpretation: Performing Lab:[facility], [address] [place] [phone] Notes/Report: Bilirubin Total 0.5 0.0-1.0 mg/dL Bilirubin Direct 0.2 0.0-0.5 mg/dL Aspartate Amino Transferase 28 5-37 U/L Alanine Aminotransferase 18 0-40 U/L Total Protein 7.1 6.5-8.0 g/dL Albumin Level 4.0 3.5-5.0 g/dL Alkaline Phosphatase 72 39-117 U/L Glucose Fasting Reviewed date:05/12/2024 04:53:04 PM Interpretation: Performing Lab:[facility], [address] [place] [phone] Notes/Report: Glucose Fasting 95 60-99 mg/dL Lipid Panel with Reflex Reviewed date:05/12/2024 04:53:13 PM Interpretation: Performing Lab:[facility], [address] [place] [phone] Notes/Report: Triglycerides 71 <150 mg/dL Desirable Triglyceride: [...] A1c Reviewed date:05/12/2024 12:07:37 PM Interpretation: Performing Lab:[facility], [address] [place] [phone] Notes/Report: Hemoglobin A1c % 6.0 <6.0 % [...] average glucose, using the formula of the S4V-Jnappbo Average Glucose study (ADAG), Diabetes Care, Vol.31,#8, Oct. 2007 REASON FOR VISIT FASTING LIPIDS Encounters Encounter Location Date Provider Diagnosis Jordan Gabriel MD [address] [place], [place] [phone] 05/12/2024 Jordan Gabriel Type 2 diabetes mina itus without complications E11.9 and Pure hypercholesterolemia E78.00 Assessments Encounter Date Diagnosis (ICD Code) Assessment Notes Treatment Notes Treatment Clinical Notes Section Notes 05/12/2024 Type 2 diabetes mina itus without complications (ICD-10 - E11.9) 05/12/2024 Pure hypercholesterolemia (ICD-10 - E78.00) Plan Of Treatment Next Appt Details Provider Name:Jordan ward, 11/10/2024 08:00:00 AM, [address], Suite [facility], [place], [place], [phone], Provider Name:Jordan ward, 11/17/2024 10:30:00 AM, [address] [place] [address], Suite [facility], [place], [place], [phone], Provider Name:Jordan ward, 05/21/2025 01:45:00 PM, [address], [address], [place], [place], [phone], Progress Notes * Anthony GOODMAN CDOB:1939 (84 yo M)Acc No.[id number]:05/12/2024 Progress Note Patient:?Anthony GOODMAN Provider:?Jordan Gabriel MD :1940???Age:84 Y???Sex:Male Keron e:05/12/2024 [facility] Subjective: * Chief Complaints: * ???1. FASTING [...] Time - 05/12/2024 07:45 AM) * Procedure Codes:?24144 VENIP UNCT, ROUTINE* * * The named appointment provid er may or may not be the originator of this progress note, and it is not deemed complete until electronically signed by the appointment provider. Sign off status: Pending * Provider:?Jordan Gabriel MD Date:?0 05/12/2024 Generated for Gautam oh/Isaac/Editting on:?07/02/2024 06:42 AM EDT
[2024-07-21 11:48] VITALS: BMI 27.9
--- NOTE | 2024-07-22 09:18 | HO.ANESPROP2 ---
Documented by User: Meg Bolden NP 07/22/24 09:23 HPI - Anesthesia Eval Consult details Narrative: 84yo M for Upper Endoscopy with Balloon Dilitation Xarelto for afib. [place] for CAD s/p CABG 2017, PAF Lung CA s/p ANDREW wedge resection 2017, RUL lobectomy 1991 [facility] Active Problems Active Problems: All Active Problems Permanent atrial fibrillation (Acute) De Quervain's tenosynovitis, right (Acute) Osteoarthritis of carpometacarpal joint of right thumb (Acute) Lumbar stenosis with neurogenic claudication (Acute) Diastolic dysfunction (Acute) Mallet deformity of right ring finger (Acute) Spinal stenosis (Acute) History of total left hip arthroplasty (Acute) Chronic pain syndrome (Acute) Spinal stenosis, lumbar (Acute) Bilateral leg cramps (Acute) Anemia (Chronic) PVD (peripheral vascular disease) (Acute) CAD (coronary artery disease) (Acute) Hyperlipidemia (Acute) Diabetes mellitus (Acute) HTN (hypertension) (Acute) Past Medical History Medical History Atrial fibrillation and flutter Arthritis Hiatal hernia COVID-19 On anticoagulant therapy History of blood transfusion Severe sepsis Gallstone pancreatitis GARTH (acute kidney injury) PVD (peripheral vascular disease) History of cancer COPD (chronic obstructive pulmonary disease) GERD (gastroesophageal reflux disease) Hyperlipidemia Diabetes mellitus HTN (hypertension) Paroxysmal atrial fibrillation CAD (coronary artery disease) Family History Family history of problems with anesthesia: No Surgical History Surgical History History of surgery on wrist Hx of spinal surgery History of esophagogastroduodenoscopy (EGD) H/O colonoscopy H/O excision of mass History of excision of lesion History of laparoscopic cholecystectomy History of arthroplasty of left hip History of lobectomy of lung H/O heart surgery History of Problems with Anesthesia: No Social History Social History Household Members: Spouse Housing: House Are you a primary memory care program resident to a significant other at home: No Do you presently have visiting nurse or other home services: No Alcohol intake: former Patient Tobacco Use Status: Former Tobacco user Tobacco use type: Cigarette Cigarette Packs Per Day: 1 Have you been hit, kicked, punched, or otherwise hurt by someone within the past year? 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 Meds Allergies Allergy/AdvReac Type Severity Reaction Status Date / Time No Known Allergies Allergy Verified 07/23/24 12:25 Home Medications ?Medication ?Instructions ?Recorded ?Confirmed ?Last Taken ?Type ferrous sulfate 325 mg (65 mg 325 mg PO DAILY 09/01/20 07/21/24 11/28/20 History iron) tablet (Feosol) multivitamin 1 tab PO DAILY 09/01/20 07/21/24 Unknown History omeprazole 20 mg tablet,delayed 20 mg PO BEDTIME 09/01/20 07/21/24 Unknown History release metformin 500 mg tablet 500 mg PO BID 09/27/20 07/21/24 10/07/23 History cholecalciferol (vitamin D3) 50 50 mcg PO DAILY 08/01/23 07/21/24 Unknown History mcg (2,000 unit) tablet (Vitamin D3) cyanocobalamin (vitamin B-12) 1,000 mcg PO DAILY 08/01/23 07/21/24 Unknown History 1,000 mcg tablet (Vitamin B-12) calcium 600 mg (as 1 tab PO BID 07/21/24 07/21/24 Unknown History carbonate)-vitamin D3 5 mcg (200 unit) tablet lisinopril-hydrochlorothiazide 07/21/24 07/21/24 Unknown History Exam Height,Weight and Vital Signs: Height 6 ft Weight 93.44 kg Narrative Narrative: EKG 2023 Details: EKG shows atrial fibrillation with rightward axis ECHO 2022 Conclusions: - The left ventricular systolic function is normal. The calculated ejection fraction is 61% by biplane method. - Evidence suggests grade II (moderate) diastolic dysfunction. - Moderately increased right ventricular cavity size. - Moderate biatrial enlargement. - No obvious valvular pathology seen on this study. - There is mild dilatation of the sinuses of Valsalva measuring 4.36 cm and mild dilatation of the ascending aorta measuring 4.00 cm. Assessment and Plan Assessment Anesthesia Assessment: Chart Reviewed Final Anesthetic Review Family History of Problems with Anesthesia: No History of Problems with Anesthesia: No Documented by User: Edilia Fuentes MD 07/23/24 14:17 PMF Past Medical History Medical History Atrial fibrillation and flutter Arthritis Hiatal hernia COVID-19 On anticoagulant therapy History of blood transfusion Severe sepsis Gallstone pancreatitis GARTH (acute kidney injury) PVD (peripheral vascular disease) History of cancer COPD (chronic obstructive pulmonary disease) GERD (gastroesophageal reflux disease) Hyperlipidemia Diabetes mellitus HTN (hypertension) Paroxysmal atrial fibrillation CAD (coronary artery disease) Surgical History Surgical History History of surgery on wrist Hx of spinal surgery History of esophagogastroduodenoscopy (EGD) H/O colonoscopy H/O excision of mass History of excision of lesion History of laparoscopic cholecystectomy History of arthroplasty of left hip History of lobectomy of lung H/O heart surgery Social History Social History Household Members: Spouse Housing: House Are you a primary memory care program resident to a significant other at home: No Do you presently have visiting nurse or other home services: No Alcohol intake: former Patient Tobacco Use Status: Former Tobacco user Tobacco use type: Cigarette Cigarette Packs Per Day: 1 Have you been hit, kicked, punched, or otherwise hurt by someone within the past year? 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 Meds Allergies Allergy/AdvReac Type Severity Reaction Status Date / Time No Known Allergies Allergy Verified 07/23/24 12:25 Home Medications ?Medication ?Instructions ?Recorded ?Confirmed ?Last Taken ?Type ferrous sulfate 325 mg (65 mg 325 mg PO DAILY 09/01/20 07/21/24 11/28/20 History iron) tablet (Feosol) multivitamin 1 tab PO DAILY 09/01/20 07/21/24 Unknown History omeprazole 20 mg tablet,delayed 20 mg PO BEDTIME 09/01/20 07/21/24 Unknown History release metformin 500 mg tablet 500 mg PO BID 09/27/20 07/21/24 10/07/23 History cholecalciferol (vitamin D3) 50 50 mcg PO DAILY 08/01/23 07/21/24 Unknown History mcg (2,000 unit) tablet (Vitamin D3) cyanocobalamin (vitamin B-12) 1,000 mcg PO DAILY 08/01/23 07/21/24 Unknown History 1,000 mcg tablet (Vitamin B-12) calcium 600 mg (as 1 tab PO BID 07/21/24 07/21/24 Unknown History carbonate)-vitamin D3 5 mcg (200 unit) tablet lisinopril-hydrochlorothiazide 07/21/24 07/21/24 Unknown History Exam Airway Mallampati Class: III TM Dist: >3cm Neck ROM: Limited Denture: Upper Partial: Lower Loose/Missing/Broken Teeth: Yes, Upper and Lower Heart: RRR Lungs: CTA Assessment and Plan Assessment Anesthesia Assessment: Anesthesia Plan Discussed Final Anesthetic Review NPO: Yes ASA Class: III Final Preanesthetic Review: Meds/Allgs Chart Reviewed, Consent Obtained/Reviewed and Anes Risks/Benef Reviewed Patient Risk: Intermediate Procedure Risk: Intermediate Anesthetic Plan Anesthetic Plan: MAC: Disposition: Standard PACU
[2024-07-23 12:21] VITALS: BMI 26.4
[2024-07-23] MEDS: Lactated Ringers 1,000 ML 100 ML IVCONT (12:30)
[2024-07-23 12:40] VITALS: BP 161/67; PULSE 65; RESP 18; TEMP 36.8; O2SAT 97
[2024-07-23 12:43] LABS: Glucose, Whole Blood 101 mg/dL (60-115)
[2024-07-23 14:45] VITALS: BP 110/51; PULSE 60; RESP 18; TEMP 36.1; O2SAT 96
--- NOTE | 2024-07-23 14:53 | P.BOP_ITS ---
Brief Operative Note Date of Service: 07/23/24 Pre-op diagnosis: Dysphagia Post-op diagnosis: other (Mild esophageal stricture, Hiatal hernia) Procedure: EGD with Balloon dilation with an 18 to 19 to 20mm balloon Surgeon: Anthony Andrews MD Anesthesia: MAC Was an Mental Health Therapist used for this Procedure?: No Estimated blood loss (mL): 2.0 Pathology: none sent Condition: stable Disposition: PACU
[2024-07-23 15:00] VITALS: BP 121/53; PULSE 70; RESP 16; TEMP 36.1; O2SAT 96
--- NOTE | 2024-07-23 15:20 | OP_ITS ---
DATE OF SERVICE: 07/23/2024 SURGEON: Anthony Andrews MD INDICATIONS: The patient presents for evaluation of intermittent dysphagia and gastroesophageal reflux. Full consent has been obtained from him for this, including risks of bleeding and perforation. PREOPERATIVE DIAGNOSIS: POSTOPERATIVE DIAGNOSIS: PROCEDURE PERFORMED: Esophagogastroduodenoscopy with balloon dilation of esophageal stricture. ESTIMATED BLOOD LOSS: COMPLICATIONS: ANESTHESIA: Monitored anesthesia care. ASSISTANTS: SPECIMENS: PREOPERATIVE DIAGNOSES: Dysphagia and history of esophageal stricture. POSTOPERATIVE DIAGNOSES: Dysphagia, history of esophageal stricture, esophageal stricture, and hiatal hernia. DESCRIPTION OF PROCEDURE: The patient was placed in the left lateral decubitus position. The Olympus video gastroscope was passed in the posterior oropharynx and upper esophagus under direct vision. The scope was passed slowly into the distal esophagus. The gastroesophageal junction appeared at 39 cm. There was no sign of any esophagitis, ulceration, nor mass. There did appear to be a nonobstructing fibrotic esophageal stricture. The scope did pass this without any resistance. There was a small hiatal hernia. The scope was advanced to pylorus and the duodenum was cannulated to the descending portion. The duodenum including the bulb appeared normal without mass or ulceration. The scope was withdrawn back to the stomach. The gastric antrum and body appeared normal with good peristalsis. Scope was retroflexed, visualizing the proximal stomach carefully, which appeared normal, without any sign of mass or ulceration. The scope was straightened and withdrawn back to the esophagus. I did use a [employer] incremental balloon to dilate the area of the esophageal stricture and gastroesophageal junction from 18 mm to 19 mm to 20 mm at the recommended pressure for between 30 and 60 seconds each. Post dilation, there was some heme noted post dilation. There was some disruption of the stricture noted as well. The scope was withdrawn through the remainder of the esophagus, which appeared normal. There was no sign of any proximal esophageal rings. The scope was withdrawn from the patient. He tolerated the procedure well and was returned to the recovery area in stable condition. IMPRESSION: 1. Distal esophageal stricture, status post balloon dilation. 2. Hiatal hernia. PLAN: The patient has already been on omeprazole 20 mg daily and I shall send a new prescription for 40 mg daily to see if that can help decrease any further acid reflux, esophageal spasm, and risk of stricture recurrence. He was advised to resume his Xarelto tomorrow morning. His last dose was on July 21. He was advised not to use any aspirin or NSAIDs for least a week, but preferably long-term since he is on the Xarelto. I have advised him that if things are stable and improved, he can see me on a p.r.n. basis. However, I did advise him that if the swallowing remains problematic, he needs to contact me for further evaluation. This has been discussed with his as well. MD ANTHONY Covington/ART / [id number]
== END 2024-07-23 15:25 | disposition home or self-care (01) ==
PROVIDERS: PCP Internal Medicine; Visit Provider Internal Medicine
PROC: (CPT 43249; principal; 2024-07-23 14:00)
DX: K22.2 Esophageal obstruction (principal); K44.9 Diaphragmatic hernia without obstruction or gangrene; K21.9 Gastro-esophageal reflux disease without esophagitis; R13.10 Dysphagia, unspecified; Z87.19 Personal history of other diseases of the digestive system; E11.9 Type 2 diabetes mellitus without complications; I10 Essential (primary) hypertension; E78.5 Hyperlipidemia, unspecified; J44.9 Chronic obstructive pulmonary disease, unspecified; I48.91 Unspecified atrial fibrillation; Z79.899 Other long term (current) drug therapy; Z79.02 Long term (current) use of antithrombotics/antiplatelets; Z79.01 Long term (current) use of anticoagulants; Z79.84 Long term (current) use of oral hypoglycemic drugs; Z87.891 Personal history of nicotine dependence
CPT/HCPCS: 43249; 82947; C1726; J2003; J2704

== ENCOUNTER 2024-10-09 10:04 | Outpatient (REF) | payer MEDICARE, SELFPAY ==
--- OUTSIDE RECORDS SUMMARY | 2024-07-23 10:20 | XMS_ITS ---
Author Organization [facility] Address [address] [place] [address] Care Team Providers Care Director Of Labor Relations Name Role Phone Jordan Gabriel MD Primary Care Provider Patito Carpenter [phone] REASON FOR VISIT gerd,hx esophageal stricture,dysphagia Encounters Encounter Location Date Provider Diagnosis [facility] [address] [place] [address] [place] [phone] 07/23/2024 Patito Andrews Esophageal strictu re K22.2 and Hiatal hernia K44.9 Assessments Encounter Date Diagnosis (ICD Code) Assessment Notes Treatment Notes Treatment Clinical Notes Section Notes 07/23/2024 Esophageal stricture (ICD-10 - K22.2) 07/23/2024 Hiatal hernia (ICD-10 - K44.9) Plan Of Treatment No Information Progress Notes * PATITO BUSTILLO CDOB:1939 (84 yo M)Acc No.[id number]:07/23/2024 EGD/MAC Patient: Carlota BRICENO PATITO Buckley Provider: Jose Francisco Andrews MD :1940 A ge:84 Y S ex:Male Date:07/23/2024 Address: [id number] Pcp:Jordan Gabriel MD Subjective: * Chief Complaints: [...] 07/23/2024 Generated for Gautam oh/Isaac/Editting on: 0 10/09/2024 10:23 AM EDT
--- OUTSIDE RECORDS SUMMARY | 2024-09-08 06:04 | XMS_ITS ---
Author Organization Jordan Gabriel MD Address [address] [place] [phone] Care Team Providers Care Plant Wire Chief Name Role Phone Jordan Gabriel Primary Care Provider [phone] Chest due Encounters Encounter Location Date Provider Diagnosis Jordan Gabriel MD [address] [facility] [address] [place] [phone] 09/08/2024 Jordan Gabriel Plan Of Treatment Next Appt Details Provider Name:Jordan Cyr ier, 11/10/2024 08:00:00 AM, [address], [place], [place], [phone], Provider Name:Jordan Cyr ier, 11/17/2024 10:30:00 AM, [address], [place], [phone], Provider Name:Jordan Cyr ier, 05/21/2025 01:45:00 PM, [address], [place], [phone], Progress Notes * Anthony GOODMAN CDOB:1939 (84 yo M)Acc No.[id number]:09/08/2024 Patient: Anthony GARCIA :1940 A ge:84 Y S ex:Male Address: [place] [address] * true * Date: Generated for Gautam oh/Isaac/Júniorsmitting on: 0 10/09/2024 10:23 AM EDT
[2024-10-09 10:52] LABS: Potassium 5.0 mmol/L (3.3-5.1)
== END 2024-10-09 10:05 | disposition home or self-care (01) ==
LOC: HO.LNP 10:04
PROVIDERS: Visit Provider Internal Medicine
DX: E78.5 Hyperlipidemia, unspecified (principal)
CPT/HCPCS: 84132

== ENCOUNTER 2024-11-02 10:34 | Outpatient (REF) | payer MEDICARE, SELFPAY ==
--- NOTE | ~2024-11-02 | US_ITS ---
EXAMINATION: US LOWER EXTREMITY VEINS LIMITED FOLLOW UP LEFT HISTORY: GOUT ATTACK, LEG EDEMA COMPARISON: Comparison is made with the prior examination dated 08/23/2020. TECHNIQUE: Duplex and color Doppler sonographic examination of the deep venous system of the left lower extremity was performed. FINDINGS: The common femoral, superficial femoral, and popliteal veins are patent demonstrating normal compressibility, spontaneous flow, and augmentation. There is a normal color and spectral Doppler waveform appearance of the visualized deep venous system above the knee. The posterior tibial and peroneal veins are patent. There is intimal thickening of the small saphenous vein which may be the result of prior thrombosis. US/US venous duplex LE LT IMPRESSION: No evidence of acute DVT in the left lower extremity. Electronically signed by: Anthony Bennett MD 11/02/2024 11:28 AM EDT
== END 2024-11-02 10:35 | disposition home or self-care (01) ==
LOC: HO.US 10:34
PROVIDERS: PCP Internal Medicine; Visit Provider Internal Medicine
DX: R60.0 Localized edema (principal); M10.9 Gout, unspecified
CPT/HCPCS: 93971

== ENCOUNTER → 2024-11-02 10:50 | Outpatient (BNV) | payer MEDICARE, SELFPAY | PROVIDERS: PCP Internal Medicine; Visit Provider Radiology Diagnostic Radiology | DX: R22.42 Localized swelling, mass and lump, left lower limb (principal) | CPT/HCPCS: 93971 ==

== ENCOUNTER 2024-11-10 11:16 | Outpatient (REF) | payer MEDICARE, SELFPAY ==
--- OUTSIDE RECORDS SUMMARY | 2024-11-02 05:45 | XMS_ITS ---
Author Organization Jordan Gabriel MD Address [address] [place] [address] [phone] Support Name Relationship Address Phone Jordan Gabriel Caregiver [facility] [address] [address] [place] [address] [phone] JEFFERY HUSTON Caregiver [facility] [address] [place] [address] [phone] Alfred Pierre Caregiver [facility] [address] [place] [address] [phone] Anthony Andrews Caregiver [facility] [address] [place] [address] [phone] Erickson Payton Caregiver [address] [place] [address] [phone] Cr Foley Caregiver [facility] [address] [place] [address] [phone] Darryl Padilla Caregiver [facility] [address] [address] [place] [address] [phone] Vicente Leigh Caregiver [address] [place] [address] [phone] Unavailable Emergency Contact Unknown Anthony Goodman Guarantor Unknown [phone] Care Team Providers Care Sales Vice President Name Role Phone Jordan Gabriel Primary Care Provider [phone] Allergies No Known Allergies REASON FOR VISIT [...] MG 1 tablet Orally BID Active Nystatin 611972 UNIT/GM 1 application Externally Twice a day [...] Date Provider Diagnosis Jordan Gabriel MD [address] [facility] [address] [place] [address] [phone] 11/02/2024 Jordan Gabriel Gout attack M10.9 and Leg edema R60.0 Assessments Encounter Date Diagnosis (ICD Code) Assessment Notes Treatment Notes Treatment Clinical Notes Section Notes 11/02/2024 Gout attack (ICD-10 - M10.9) patient verbalized nderstanding of medication and directions for use 11/02/2024 Leg edema (ICD-10 - R60.0) being done today 11-02-2024 at 11am at [facility] , pending diagnostic testing Plan Of Treatment [...] being done today 10-23 at 11am at [facility] , pending diagnostic testing Pending Test Test Name Order Date US LEG LT VENOUS DOPPLER 11/02/2024 Next Appt Details Follow Up: 1 Week, Reason: Provider Name:Jordan ward, 11/17/2024 10:30:00 AM, [address] [place] [address], [address] [place] [address], [phone], Provider Name:Jordan nettlesr, 05/21/2025 01:45:00 PM, [address] [place] [address], [address], [place], [place], [phone], Progress Notes * Anthony GOODMAN CDOB:1939 (84 yo M)Acc No.[id number]:11/02/2024 Progress Notes Patient: Anthony GARCIA Provider: Emery Gabriel MD :1940 A ge:84 Y S ex:Male Date:11/02/2024 Address: [id number] Subjective: * Chief Complaints: * R FT [...] as needed Inhalation every 4 hrs Nystatin 183269 UNIT/GM Cream 1 application Externally Twice a [...] needed Inhalation every 4 hrs Taking Nystatin 658827 UNIT/GM Cream 1 application Externally Twice a [...] being done today 11-02-2024 at 11am at [facility] , pending diagnostic testing * Procedure Codes: * Follow Up: 1 Week * * Sign off status: Completed true * Provider: Emery Gabriel MD Date: 0 11/02/2024 Generated for Gautam oh/Isaac/Editting on: 0 11/10/2024 12:48 PM EDT History and Physical Notes * HPI [...]
[2024-11-10 11:28] LABS: MANUAL DIFF FLAG NO
[2024-11-10 12:17] LABS: Appearance Urine Clear; Glucose Urine UA Negative (Negative); PH 5.5 (5.0-9.0); Specific Gravity - Urine 1.010 (1.005-1.025); UMIC TRIGGER UACC YES
[2024-11-10 12:18] LABS: Hematocrit 35.8 % (42.0-52.0); Hemoglobin 11.4 g/dl (14.0-18.0); Imm Gran Abs Auto 0.06 X10*3/uL (0.00-0.03); Imm Gran Pct Auto 0.4 % (0.0-0.4); Lymphocytes Absolute Auto 2.6 X10*3/uL (1.2-4.9); Mean Corpuscular HGB Conc 31.8 g/dl (31.0-36.0); Mean Corpuscular Hemoglobin 28.0 pg (27.0-33.0); Mean Corpuscular Volume 88.0 fL (80.0-98.0); NRBC Abs Auto 0.000 X10*3/uL (0.0-0.012); NRBC Pct Auto 0.0 /100WBC (0.0-0.2); Platelet Count 450 X10*3/uL (160-400); Red Blood Count 4.07 X10*6/uL (4.60-5.80); White Blood Count 14.2 X10*3/uL (4.8-10.8)
[2024-11-10 12:36] LABS: Alanine Aminotransferase 15 U/L (0-40); Albumin Level 4.6 g/dL (3.5-5.0); Alkaline Phosphatase 76 U/L (39-117); Anion Gap 16 (12-20); Aspartate Amino Transferase 22 U/L (5-37); Blood Urea Nitrogen 51 mg/dL (9-16); Calcium 9.7 mg/dL (8.4-10.2); Carbon Dioxide 24 mmol/L (22-29); Chloride 101 mmol/L (96-108); Cholesterol 120 mg/dL (<200); Estimated Glomerular Filt Rate 35; HDL Cholesterol 51 mg/dL (>40); Iron 49 mcg/dL (45-160); Percent Iron Saturation 17 % (15-50); Potassium 4.7 mmol/L (3.3-5.1); Sodium 136 mmol/L (135-145); Total Iron Binding Capacity 282 mcg/dL (228-428); Total Protein 7.3 g/dL (6.5-8.0); Triglycerides 81 mg/dL (<150); Unsaturated Iron Binding 233 ug/dL
[2024-11-10 12:42] LABS: Hemoglobin A1C 145.9776 umol/L; Total Hemoglobin (HGBA1C) 3077.3653 umol/L
--- OUTSIDE RECORDS SUMMARY | 2024-11-10 12:48 | XMS_ITS | Patient Health Record ---
Author Organization [facility] Address [address] [place] [address] Care Team Providers Care Keyboarding Teacher Name Role Phone Nery DIAS, Jordan Primary Care Provider Patito Carpenter Unavailable [phone] Allergies No Known Allergies Results Component Value Reference Range Notes Glucose, Whole Blood Reviewed date:07/25/2024 10:07:32 PM Interpretation: Performing Lab:[facility], [address] [place] [phone] Notes/Report: Glucose, Whole Blood 101 60-115 mg/dL METER # : [id number] Reason For Referral No Information Medications Medication SIG (Take, Route, Frequency, Duration) Notes Start Date End Date Status Omeprazole 40 MG 1 capsule 1/2 to 1 h our before morning meal Orally Once a day for 90 days 07/23/2024 Active Vitamin B-12 100 MCG as directed [...] Problem Status W/U Status Risk Notes Problem 768589213 Encounter for screening for malignant neoplasm of colon (Z12.11) Active confirmed Problem 587843797 History of adenomatous polyp of colon (Z86.010) Active confirmed Problem Screening for malignant neoplasm of rectum (301010873) Encounter for screening for malignant neoplasm of rectum (Z12.12) Active confirmed Problem Dysphagia (R13.10) Active confirmed Problem Iron deficiency anemia (47463621) Iron deficiency anemia (D50.9) Active confirmed Problem Gastric polyp (23774244) Gastric polyp (K31.7) Active confirmed Problem History of polyp of colon (482988722) Hx of colonic polyps (Z86.010) Active confirmed Problem 390801116 Long-term (curre nt) use of anticoagulants (Z79.01) Active confirmed Problem 19107700 Iron deficiency anemia, unspecified iron deficiency anemia type (D50.9) Active confirmed Problem 349804147 History of esophageal stricture (Z87.19) Active confirmed Problem Esophageal reflux finding (982989744) Gastroesophageal reflux (K21.9) Active confirmed Problem Diverticulosis of sigmoid colon (727277629) Diverticulosis of sigmoid colon (K57.30) Active confirmed [...] N/A Encounters Encounter Location Date Provider [place] [facility] [place] [facility] [address] [place] [phone] 07/23/2024 Patito Andrews Esophageal stricture K22.2 and Hiatal hernia K44.9 [facility] [address] [place] [address] 07/01/2024 Patito Andrews Dysphagia R13.10 ; History of esophageal stricture Z87.19 and Gastroesophageal reflux K21.9 [facility] [address] [place] [address] 06/01/2024 Patito Andrews [facility] [address] [place] [address] 07/23/2024 Patito Andrews Assessments Encounter Date Diagnosis (ICD Code) Assessment Notes Treatment Notes Treatment Clinical Notes Section Notes 07/23/2024 Esophageal stricture (ICD-10 - K22.2) 07/23/2024 Hiatal hernia (ICD-10 - K44.9) 07/01/2024 Dysphagia (ICD-10 - R13.10) Overall, Patito [...] OF ESOPH 07/01/2024 IRON + IBC (FE) 03/09/2021 IRON + IBC (FE) 12/04/2020 CBC w DIFF 03/09/2021 CBC w DIFF [...] Date MEDICARE OF [place] [address] [place] [address] [id number] KENYPATITO Mccall Self - patient is the insured [employer] ATTN CLAIMS [address] [place] [address] [id number] KENYPATITO Mccall Self - patient is the insured Medical (General) History Medical History History ICD Code Larger tubular adenoma with dysplasia re moved in 11/2008 from [facility] Colonoscopy 07-06-2009--small tubular cristina nomas Hyperlipidemia EGD in 11/2008 with a small HH and gastri tis-neg. H. pylori COPD/pneumonia Denies NE,CVA,renal disease HTN Asymptomatic gallstones-this had been reviewed with him on his previous office visit in August,---he had subsequent gallstone pancreatitis and cholecystectomy as below Upper endoscopy in August with a finding of a fibrotic distal esophageal stricture that was dilated successfully with balloons Colonoscopy in August of 2012 with removal of small tubular adenomas Atrial flutter/Atrial fib--sees Dr. 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
[2024-11-10 12:57] LABS: PSA,Total (Free>4and<10) 2.37 ng/mL (0.00-4.00)
[2024-11-10 13:10] LABS: Microalbum/Creatinine Ratio Ur 20.1 ug/mg cr (<30)
== END 2024-11-10 11:17 | disposition home or self-care (01) ==
LOC: HO.LNP 11:16
PROVIDERS: Visit Provider Internal Medicine
DX: R97.20 Elevated prostate specific antigen [PSA] (principal); Z12.5 Encounter for screening for malignant neoplasm of prostate; D50.9 Iron deficiency anemia, unspecified; E78.00 Pure hypercholesterolemia, unspecified; E11.9 Type 2 diabetes mellitus without complications
CPT/HCPCS: 80053; 80061; 81001; 82043; 82570; 83036; 83540; 84153; 85025

== ENCOUNTER 2024-11-17 10:58 | Outpatient (REF) | payer MEDICARE, SELFPAY ==
--- OUTSIDE RECORDS SUMMARY | 2024-07-23 10:20 | XMS_ITS ---
Author Organization [facility] Address [address] [place] [address] Care Team Providers Care Human Factors Ergonomist Name Role Phone Jordan Gabriel MD Primary Care Provider Patito Carpenter [phone] REASON FOR VISIT gerd,hx esophageal stricture,dysphagia Encounters Encounter Location Date Provider Diagnosis [facility] [place] [address] [place] [address] [place] [phone] 07/23/2024 Patito Andrews Esophageal strictu re K22.2 and Hiatal hernia K44.9 Assessments Encounter Date Diagnosis (ICD Code) Assessment Notes Treatment Notes Treatment Clinical Notes Section Notes 07/23/2024 Esophageal stricture (ICD-10 - K22.2) 07/23/2024 Hiatal hernia (ICD-10 - K44.9) Plan Of Treatment No Information Progress Notes * PATITO BUSTILLO CDOB:1939 (84 yo M)Acc No.[id number]:07/23/2024 EGD/MAC Patient: Carlota BRICENO PATITO Buckley Provider: Jose Francisco Andrews MD :1940 A ge:84 Y S ex:Male Date:07/23/2024 Address: [id number] Pcp:Jordan Gabriel MD Subjective: * Chief Complaints: [...] 07/23/2024 Generated for Gautam oh/Isaac/Editting on: 0 11/17/2024 11:55 AM EDT
--- OUTSIDE RECORDS SUMMARY | 2024-11-09 07:45 | XMS_ITS ---
Author Organization Jordan Gabriel MD Address [address] [place] [address] [phone] Care Team Providers Care Food Dehydrator Operator Name Role Phone Jordan Gabriel Primary Care Provider [phone] Allergies No Known Allergies REASON FOR VISIT [...] for 30 days 11/14/2017 Not-Guillermo ng Nystatin 184246 UNIT/GM 1 application Externally Twice a day for 14 days 04/28/2019 Active metFORMIN HCl 500 MG TAKE 1 TABLET BY MO [facility] TWICE A DAY WITH MEALS for 90 Active Albuterol Sulfate HFA 108 (90 Base) MCG/ACT 1 puff as needed Inhalation every 4 hrs 04/13/2022 Active Lisinopril 20 MG TAKE 1 TABLET BY [place] EVERY DAY for 90 Active predniSONE 10 [...] kg/m2 11/09/2024 weight is down 2 pounds [facility] e 11-02-24 Encounters Encounter Location Date Provider Diagnosis Jordan Gabriel MD [address] [place] [phone] 11/09/2024 Jordan Gabriel Gout attack M10.9 and [...] Follow Up: 6 Weeks, Reason: Provider Name:Jordan ward, 12/01/2024 07:30:00 AM, [address] [place] [address], [address], [phone], Provider Name:Jordan ward, 12/08/2024 09:15:00 AM, [address] [place] [address], [address], [phone], Provider Name:Jordan ward, 05/21/2025 01:45:00 PM, [address] [place] [address], [address], [phone], Provider Name:Jordan ward, 11/15/2025 07:15:00 AM, [address] [place] [address], [address], [phone], Provider Name:Jordan ward, 11/22/2025 10:30:00 AM, [address] [place] [address], [address], [phone], Progress Notes * Anthony GOODMAN CDOB:1939 (84 yo M)Acc No.[id number]:11/09/2024 Patient: Anthony GARCIA Provider: Emery Gabriel MD :1940 A ge:84 Y S ex:Male Date:11/09/2024 Address: [address] [id number] Subjective: * Chief Complaints: * 1 week [...] as needed Inhalation every 4 hrs Nystatin 270299 UNIT/GM Cream 1 application Externally Twice a [...] needed Inhalation every 4 hrs Taking Nystatin 844665 UNIT/GM Cream 1 application Externally Twice a [...] true * Provider: Emery Gabriel MD Date: 11/09/2024 Generated for Gautam oh/Isaac/Editting on: 11/17/2024 11:55 AM EDT History and Physical Notes * [...]
--- OUTSIDE RECORDS SUMMARY | 2024-11-10 04:00 | XMS_ITS ---
Author Organization Jordan Gabriel MD Address [address] [place] [phone] Care Team Providers Care News Wire Photo Operator Name Role Phone Jordan Gabriel Primary Care Provider [phone] Results Component Value Reference Range Notes Comprehensive [place]. Panel Fa st (Not yet reviewed by provider) Interpretation:10-28-2024 Performing Lab:, [address] [place] [phone] Notes/Report: Sodium 136 135-145 mmol/L Potassium 4.7 [...] 3.5-5.0 g/dL Alkaline Phosphatase 76 39-117 U/L Complete Blood Count Auto Di ff Reviewed date:11/10/2024 04:43:39 PM Interpretation: Performing Lab:, [address] [place] [phone] Notes/Report: White Blood Count 14.2 4.8-10.8 X10*3/uL [...] X10*3/uL NRBC Abs Auto 0.000 0.0-0.012 X10*3/uL IRON PROFILE Reviewed date:11/10/2024 12:58:08 PM Interpretation: Performing Lab:, [address] [place] [phone] Notes/Report: Iron 49 45-160 mcg/dL Total Iron Binding Capacity 282 228-428 mcg/d L Percent Iron Saturation 17 15-50 % Unsaturated Iron Binding 233 Lipid Panel Reviewed date:11/10/2024 12:57:18 PM Interpretation: Performing Lab:, [address] [place] [phone] Notes/Report: Triglycerides 81 <150 mg/dL Desirable Triglyceride: [...] (Free>4and<10) Reviewed date:11/10/2024 01:00:52 PM Interpretation: Performing Lab:, [address] [place] [phone] Notes/Report: PSA,Total (Free>4and<10) 2.37 0.00-4.00 ng/mL A [...] Random Reviewed date:11/10/2024 04:33:57 PM Interpretation: Performing Lab:[address] [phone] Notes/Report: Creatinine Urine 44.71 Microalbumin Urine 9.0 Microalbum/Creatinine Ratio Ur 20.1 <30 ug/mg cr Albumin/Creatinine Ratio Reference Ranges: Normal: < 30 ug/mg creatinine Microalbuminuria: 30 - 300 ug/mg creatinine Clinical Albuminuria: > 300 ug/mg creatinine Hemoglobin A1c Reviewed date:11/10/2024 12:57:28 PM Interpretation: Performing Lab:[address] [phone] Notes/Report: Hemoglobin A1c % 6.5 <6.0 % [...] average glucose, using the formula of the N7R-Spelnfz Average Glucose study (ADAG), Diabetes Care, Vol.31,#8, Oct. 2007 UA ClnCatch+Micro w/rflx Cul t Reviewed date:11/11/2024 12:30:51 PM Interpretation: Performing Lab:, [address] [place] [phone] Notes/Report: Urine, Clean Catch Color Urine Yellow Appearance Urine Clear PH 5.5 5.0-9.0 Glucose Urine UA Negative Negative mg/dL Urine Blood Negative Negative Specific [place] - Urine 1.010 1.005-1.025 Urine Protein Negative [...] Location Date Provider Diagnosis Jordan Gabriel MD [address] [place] [address] [place] [phone] 11/10/2024 Jordan Gabriel Type 2 diabetes mina [...] on (ICD-10 - I10) Plan Of Treatment Pending Test Test Name Order Date Comprehensive [place]. Panel Fast Next Appt Details Provider Name:Jordan ward, 12/01/2024 07:30:00 AM, [address] [place] [address], [address], [phone], Provider Name:Jordan ward, 12/08/2024 09:15:00 AM, [address] [place] [address], [address], [phone], Provider Name:Jordan ward, 05/21/2025 01:45:00 PM, [address] [place] [address], [address], [phone], Provider Name:Jordan ward, 11/15/2025 07:15:00 AM, [address], [address], [place], [place], [phone], Provider Name:Jordan Eric Cyr ier, 11/22/2025 10:30:00 AM, [address], [address], [place], [place], [phone], Progress Notes * Anthony GOODMAN CDOB:1939 (84 yo M)Acc No.[id number]:11/10/2024 Progress Note Patient: Anthony GARCIA Provider: Emery Gabriel MD :1940 A ge:84 Y S ex:Male Date:11/10/2024 [id number] Subjective: * Chief Complaints: * 1 . [...] Treatment: 2. P ure hypercholesterolemia L AB: Comprehensive [place]. Panel Fast (Collection Date & Time - 11/10/2024 08:00 AM) L AB: Complete Blood Count Auto Diff [...] 3. R ising PSA level L AB: Comprehensive [place]. Panel Fast (Collection Date & Time - 11/10/2024 08:00 AM) L AB: Complete Blood Count Auto Diff [...] unspecified iron deficiency anemia type L AB: Comprehensive [place]. Panel Fast (Collection Date & Time - 11/10/2024 08:00 AM) L AB: Complete Blood Count Auto Diff [...] AM) 5. E ssential hypertension L AB: Comprehensive [place]. Panel Fast (Collection Date & Time - 11/10/2024 08:00 AM) L AB: Complete Blood Count Auto Diff [...] 11/10/2024 Generated for Gautam oh/Isaac/Editting on: 0 11/17/2024 11:56 AM EDT
--- NOTE | ~2024-11-17 | XR_ITS ---
EXAMINATION: XR FOOT 1-2 VIEWS RIGHT HISTORY: PAIN COMPARISON: There are no prior studies available for comparison. FINDINGS: AP and lateral views of the right foot are submitted. Osseous mineralization is normal. There is no fracture or dislocation. 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 There is a plantar calcaneal spur. The soft tissues are unremarkable. 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 Electronically signed by: Anthony Bennett MD 11/17/2024 11:37 AM EDT
--- OUTSIDE RECORDS SUMMARY | 2024-11-17 06:30 | XMS_ITS ---
Author Organization Jordan Gabriel MD Address [address] [place] [id number] Care Team Providers Care Core Shaper Top Name Role Phone Jordan Gabriel Primary Care Provider [phone] Allergies No Known Allergies Results Component Value Reference Range Notes XR foot RT 2V (Not yet revie wed by provider) Interpretation: Performing Lab: Notes/Report: [facility] [address] [place] [address] XRay Report Signed Patient: Anthony Goodman MR#: [id number] : 1940 Acct:[id number] Age/Sex: 84 / M ADM Date: 11/17/24 Loc: [facility] Attending Dr: Jordan Gabriel MD Ordering Physician: Jordan Gabriel MD Date of Service: 11/17/24 Procedure(s): XR foot RT 2V Accession Number(s): [id number] cc: Jordan Gabriel MD EXAMINATION: XR FOOT [...] 11/17/24 1137 DD/ 1115 TD/TT: 11/17/24 1123 Endoscopy Support Specialist: [place] [id number] XRay Report Signed Patient: Angelia Goodman Sr MR#: [id number] : 1940 Acct:[id number] Age/Sex: 84 / M ADM Date: 11/17/24 Loc: [facility] Attending Dr: Jordan Gabriel MD Ordering Physician: Jordan Gabriel MD Date of Service: 11/17/24 Procedure(s): XR foot RT 2V Accession Number(s): [id number] cc: Jordan Gabriel MD EXAMINATION: XR FOOT [...] Dictated By: Anthony Bennett MD Signed By: <Electron ically signed by Anthony Bennett MD in OV> 11/17/24 1137 DD/ 1115 TD/TT: 11/17/24 1123 Endoscopy Support Specialist: Reason For Referral Reason I48.0 Paroxysmal atr [...] Duration) Notes Start Date End Date Status metFORMIN HCl 500 MG TAKE 1 TABLET BY MO UTH TWICE A DAY WITH MEALS for 90 Active Lisinopril 20 MG TAKE 1 TABLET BY JANETH TH EVERY DAY for 90 Active Albuterol Sulfate HFA 108 (90 Base) MCG/ACT 1 puff as needed Inhalation every 4 hrs 04/13/2022 Active Nystatin 644440 UNIT/GM 1 application Externally Twice a day for 14 days 04/28/2019 Active Xarelto 20 MG 1 tablet with food Orally Once a day Active Omeprazole 20 MG 1 capsule Orally Onc e a day Active Ferrous Sulfate 325 (65 Fe) MG 1 tablet Orally BID Active FreeStyle Lite Test 0 as directed In Vit ro DX: E 11.9 use tot test blood sugar once a day for 30 days 01/17/2016 Active Atorvastatin Calcium 80 MG 1 tablet Orally Once a day Active Metoprolol Succinate ER 25 MG 1 tablet Orally Once a day for 30 days 11/17/2024 Active Benadryl Allergy 25 MG 1 tablet as neede d Orally every 8 hrs Not-Taking Ventolin HFA 108 (90 Base) MCG/ACT 2 puffs as needed Inhalation every 4 hrs Not-Owen earnest Symbicort 160-4.5 MCG/ACT 2 puffs Inhala tion Twice a day for 30 days 11/14/2017 Not-Guillermo oh FreeStyle Lite 0 as directed invitro DX: [...] Location Date Provider Diagnosis Jordan Gabriel MD [address] [place] [address] [place] [phone] 11/17/2024 Jordan Gabriel Foot pain, right M79.671 ; Paroxysmal atrial fibrillation I48.0 and Elevated BUN R79.9 Assessments Encounter Date Diagnosis (ICD Code) Assessment Notes Treatment Notes Treatment Clinical Notes Section Notes 11/17/2024 Foot pain, right (ICD-10 - M79.671) order given to patient 11/17/2024 Paroxysmal atrial fibrillation (ICD-10 - I48.0) getting ecg and back to dr padilla/salena ecg with regular rythm but is rapid afib. 11/17/2024 Elevated BUN (ICD-10 - R79.9) probably from the lasix. shich has been stopped Plan Of Treatment Medication Medication Name Sig Start Date Stop Date Notes Metoprolol Succinate ER 25 MG 1 tablet O rally Once a day for 30 days 11/17/2024 Treatment Notes Assessment Notes Foot pain, right order given to patie nt Paroxysmal atrial fibrillation getting e cg and back to dr padilla/salena ecg with regular rythm but is rapid afib. Elevated BUN probably from the la six. shich has been stopped Pending Test Test Name Order Date Electrocardiogram (EKG) 11/17/2024 XR foot RT 2V 11/17/2024 Future Test Test Name Order Date Blood Urea Nitrogen 12/01/2024 Creatinine 12/01/2024 Referrals Referral Date Details 11/17/2024 11/17/2024, I48.[address]. Gabriel and Dr. Padilla spoke regarding patient's issue, was told Dr. Padilla office would be calling patient with an appt, Darryl Padilla Next Appt Details Follow Up: 3 Weeks, Reason: Provider Name:Jordan ward, 12/01/2024 07:30:00 AM, [address] [place] [address], [address], [phone], Provider Name:Jordan nettlesr, 12/08/2024 09:15:00 AM, [address] [place] [address], [address], [phone], Provider Name:Jordan nettlesr, 05/21/2025 01:45:00 PM, [address] [place] [address], [address], [phone], Provider Name:Jordan nettlesr, 11/15/2025 07:15:00 AM, [address] [place] [address], [address], [phone], Provider Name:Jordan nettlesr, 11/22/2025 10:30:00 AM, [address] [place] [address], [address], [phone], Progress Notes * Anthony GOODMAN CDOB:1939 (84 yo M)Acc No.[id number]:11/17/2024 Patient: Salena BRICENOAnthony Ina Provider: Earnest Gabriel MD :1940 A ge:84 Y S ex:Male Date:11/17/2024 Address:[address], [facility] Subjective: * Chief Complaints: * 1 . COMP EXAM/must Comp met labs. * HPI: D epression Screening: PHQ-9 L [...] d enies. H eadache?denies. * Medical History: H ENLARGED LYMPH NODE IN PARA ESOPH AREA. had repeat ct of chest 2012 and no change, COLONOSCOPY 09/08/12 - repeat in 3 years; colonoscopy done 07/03/16 w/Dr. Andrews - probably uwon't need another upper and lower endo 12/13, Cancer of larynx 2007 surgery and radiation, hematuria work up [address] dr pate/repeat Cystoscopy by Dr. Leigh - normal dec 2016, Had maize procedure and atrial appendage, Colonoscopy 12/13, pending biopsy's. * Family History: F ather: 88 yrs, [...] spouse. Marital status: . 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 Pets: dogs. * Medications: T aking FreeStyle Lite 0 Device as directed invitro DX: E 11.9 once a day , Taking FreeStyle Lite Test 0 Strip as directed In Vitro DX: E 11.9 use tot test blood sugar once a day , Taking Atorvastatin Calcium 80 MG Tablet 1 tablet Orally Once a day , Taking Omeprazole 20 MG Capsule Delayed Release 1 capsule Orally Once a day , Taking Ferrous Sulfate 325 (65 Fe) MG Tablet 1 tablet Orally BID , Taking Xarelto 20 MG Tablet 1 tablet with food Orally Once a day , Taking Albuterol Sulfate HFA 108 (90 Base) MCG/ACT Aerosol Solution 1 puff as needed Inhalation every 4 hrs , Taking Nystatin 525648 UNIT/GM Cream 1 application Externally Twice a day , Taking metFORMIN HCl 500 MG Tablet TAKE 1 TABLET BY MOUTH TWICE A DAY WITH MEALS , Taking Lisinopril 20 MG Tablet TAKE 1 TABLET BY MOUTH EVERY DAY , Not-Taking/PRN predniSONE 10 MG Tablet 1 tablet with food or milk Orally 4 tabs for 3 days,3tabs for 3 days, 2 tabs for 3 days, and 1 tab for 3 days , Not-Taking/PRN Ventolin HFA 108 (90 Base) MCG/ACT Aerosol Solution 2 puffs as needed Inhalation every 4 hrs , Not-Taking/PRN Symbicort 160-4.5 MCG/ACT Aerosol 2 puffs Inhalation Twice a day , Not-Taking/PRN Benadryl Allergy 25 MG Tablet 1 tablet as needed Orally every 8 hrs , Discontinued predniSONE 10 MG Tablet 1 tablet with food or milk Orally 4 tabs for 3 days,3tabs for 3 days, 2 tabs for 3 days, and 1 tab for 3 days , Medication List reviewed and reconciled with the patient * Allergies: N .K.D.A. Objective: * Vitals: H t: 71, Wt: [...] mg/dL Urine Blood Negative Negative - Specific Pfeifer - Urine 1.010 1.005-1.025 - Urine Protein [...] 3 . E levated BUN - R79.9 Plan: * Treatment: 2. P aroxysmal atrial fibrillation Start Metoprolol Succinate ER Tablet Extended Release 24 Hour, 25 MG, 1 tablet, Orally, Once a day, 30 days, 30, Refills 5. L AB: Blood Urea Nitrogen (Ordered for 12/01/2024) L AB: Creatinine (Ordered for 12/01/2024) I maging: Electrocardiogram (EKG) Notes: getting ecg and back to dr padilla/salena ecg with regular rythm but is rapid afib. ? Referral To:Darryl Padilla??Cardiovascular Disease ?Reason:I48.[address] Gabriel and Dr. Padilla spoke regarding patient's issue, was told Dr. Padilla office would be calling patient with an appt 3.?Elevated BUN? Notes: probably from the lasix. shich has been stopped ?? * Procedure Codes: 9 3000 -ELECTROCARDIOGRAM, COMPLETE * Preventive Medicine: Diabetes Care Plan: P [...] * Follow Up: 3 Weeks * * The named appointment provid er may or may not be the originator of this progress note, and it is not deemed complete until electronically signed by the appointment provider. Sign off status: Pending * Provider: Earnest Gabriel MD Date: 0 11/17/2024 Generated for Gautam oh/Isaac/Editting on: 11/17/2024 11:55 [...]
--- OUTSIDE RECORDS SUMMARY | 2024-11-17 11:55 | XMS_ITS | Patient Health Record ---
Author Organization [facility] Address [address] [place] [address] Care Team Providers Care Satellite Tv Installer Name Role Phone Nery DIAS, Jordan Primary Care Provider Patito Carpenter Unavailable [phone] Allergies No Known Allergies Results Component Value Reference Range Notes Glucose, Whole Blood Reviewed date:07/25/2024 10:07:32 PM Interpretation: Performing Lab:[facility], [address] [place] [id number] Notes/Report: Glucose, Whole Blood 101 60-115 mg/dL METER # : [id number] Reason For Referral No Information Medications Medication [...] Problem Status W/U Status Risk Notes Problem [id number] Encounter for screening for malignant neoplasm of colon (Z12.11) Active confirmed Problem 825570084 History of adenomatous polyp of colon (Z86.010) Active confirmed Problem Screening for malignant neoplasm of rectum (326828398) Encounter for screening for malignant neoplasm of rectum (Z12.12) Active confirmed Problem Dysphagia (00522128) Dysphagia (R13.10) Active confirmed Problem Iron deficiency anemia (39588414) Iron deficiency anemia (D50.9) Active confirmed Problem Gastric polyp (22280039) Gastric polyp (K31.7) Active confirmed Problem History of polyp of colon (322928792) Hx of colonic polyps (Z86.010) Active confirmed Problem 827306582 Long-term (curre nt) use of anticoagulants (Z79.01) Active confirmed Problem 43624107 Iron deficiency anemia, unspecified iron deficiency anemia type (D50.9) Active confirmed Problem 309799620 History of esophageal stricture (Z87.19) Active confirmed Problem Esophageal reflux finding (124041420) Gastroesophageal reflux (K21.9) Active confirmed Problem Diverticulosis of sigmoid colon (932327081) Diverticulosis of sigmoid colon (K57.30) Active confirmed [...] N/A Encounters Encounter Location Date Provider Diagnosis [facility] [place] [facility] [address] [place], [place] [id number] 07/23/2024 Patito Andrews Esophageal stricture K22.2 and Hiatal hernia K44.9 [facility] [address] [place] [address] 07/01/2024 Patito Andrews Dysphagia R13.10 ; History of esophageal stricture Z87.19 and Gastroesophageal reflux K21.9 [facility] [address] [place] [address] 06/01/2024 Patito Andrews [facility] [address] [place] [address] 07/23/2024 Patito Andrews Assessments Encounter Date Diagnosis [...] OF [place] [address] [place] [address] [id number] KENYPATITO AYERS Self - patient is the insured [employer] ATT[employer] CLAIMS [address] [place] [address] [id number] KENYPATITO Mccall Self - patient is the insured Medical (General) History Medical History History ICD Code Larger tubular adenoma with dysplasia re moved in 11/2008 from [facility] Colonoscopy 07-06-2009--small tubular cristina nomas Hyperlipidemia EGD in 11/2008 with a small HH and gastri tis-neg. H. pylori COPD/pneumonia Denies MT,CVA,renal disease HTN Asymptomatic gallstones-this had been reviewed [...]
--- OUTSIDE RECORDS SUMMARY | 2024-11-17 11:56 | XMS_ITS | Patient Health Record ---
Author Organization oJrdan Gabriel MD Address [address] [place] [phone] Care Team Providers Care Electrical Wiring Lineman Name Role Phone Nery Jordan Primary Care Provider Allergies No Known Allergies Results Component Value Reference Range Notes Potassium Reviewed date:12/16/2023 12:34:18 PM Interpretation: Performing Lab:[facility], [address] [place] [phone] Notes/Report: Potassium 4.6 3.3-5.1 mmol/L Liver Panel Reviewed date:05/12/2024 04:52:54 PM Interpretation: Performing Lab:[address] [address] Notes/Report: Bilirubin Total 0.5 0.0-1.0 mg/dL Bilirubin Direct 0.2 0.0-0.5 mg/dL Aspartate Amino Transferase 28 5-37 U/L Alanine Aminotransferase 18 0-40 U/L Total Protein 7.1 6.5-8.0 g/dL Albumin Level 4.0 3.5-5.0 g/dL Alkaline Phosphatase 72 39-117 U/L Glucose Fasting Reviewed date:05/12/2024 04:53:04 PM Interpretation: Performing Lab:[address] [address] Notes/Report: Glucose Fasting 95 60-99 mg/dL Lipid Panel with Reflex Reviewed date:05/12/2024 04:53:13 PM Interpretation: Performing Lab:[address] [address] Notes/Report: Triglycerides 71 <150 mg/dL Desirable Triglyceride: [...] A1c Reviewed date:05/12/2024 12:07:37 PM Interpretation: Performing Lab:[address] [phone] Notes/Report: Hemoglobin A1c % 6.0 <6.0 % [...] average glucose, using the formula of the E4N-Fmkehhz Average Glucose study (ADAG), Diabetes Care, Vol.31,#8, Oct. 2007 Potassium Reviewed date:10/09/2024 12:34:47 PM Interpretation: Performing Lab:[facility], [address] [place] [phone] Notes/Report: Potassium 5.0 3.3-5.1 mmol/L Comprehensive [place]. Panel Fa (Not yet reviewed by provider) Interpretation:10-28-2024 Performing Lab:[facility], [address] [place] [phone] Notes/Report: Sodium 136 135-145 mmol/L Potassium 4.7 [...] ff Reviewed date:11/10/2024 04:43:39 PM Interpretation: Performing Lab:[facility], [address] [place] [phone] Notes/Report: White Blood Count 14.2 4.8-10.8 X10*3/uL [...] 0.0-0.2 /100WBC Neutrophils Absolute Auto 10.7 2.0-8.3 x10*3/uL Imm Gran Abs Auto 0.06 0.00-0.03 X10*3/uL Lymphocytes Absolute Auto 2.6 1.2-4.9 X10*3/uL Monocytes Absolute Auto 0.8 0.1-1.2 X10*3/uL Eosinophils Absolute Auto 0.0 0.0-0.4 X10*3/uL Basophils Absolute Auto 0.0 0.0-0.2 X10*3/uL NRBC Abs Auto 0.000 0.0-0.012 X10*3/uL IRON PROFILE Reviewed date:11/10/2024 12:58:08 PM Interpretation: Performing Lab:[address] [address] Notes/Report: Iron 49 45-160 mcg/dL Total Iron Binding Capacity 282 228-428 mcg/dL Percent Iron Saturation 17 15-50 % Unsaturated Iron Binding 233 Lipid Panel Reviewed date:11/10/2024 12:57:18 PM Interpretation: Performing Lab:[address] [address] Notes/Report: Triglycerides 81 <150 mg/dL Desirable Triglyceride: [...] (Free>4and<10) Reviewed date:11/10/2024 01:00:52 PM Interpretation: Performing Lab:[address] [address] Notes/Report: PSA,Total (Free>4and<10) 2.37 0.00-4.00 ng/mL A [...] Random Reviewed date:11/10/2024 04:33:57 PM Interpretation: Performing Lab:[address] [address] Notes/Report: Creatinine Urine 44.71 Microalbumin Urine 9.0 Microalbum/Creatinine Ratio Ur 20.1 <30 ug/mg cr Albumin/Creatinine Ratio Reference Ranges: Normal: < 30 ug/mg creatinine Microalbuminuria: 30 - 300 ug/mg creatinine Clinical Albuminuria: > 300 ug/mg creatinine Hemoglobin A1c Reviewed date:11/10/2024 12:57:28 PM Interpretation: Performing Lab:[address] [address] Notes/Report: Hemoglobin A1c % 6.5 <6.0 % [...] average glucose, using the formula of the V0G-Xxccifi Average Glucose study (ADAG), Diabetes Care, Vol.31,#8, Oct. 2007 UA ClnCatch+Micro w/rflx Cul t Reviewed date:11/11/2024 12:30:51 PM Interpretation: Performing Lab:[facility], [address] [place] [phone] Notes/Report: Urine, Clean Catch Color Urine Yellow Appearance Urine Clear PH 5.5 5.0-9.0 Glucose Urine UA Negative Negative mg/dL Urine Blood Negative Negative Specific [place] - Urine 1.010 1.005-1.025 Urine Protein Negative Neg-Trace mg/dL Urine Ketones Negative Negative mg/dL Nitrite Urine Negative Negative Leukocyte Esterase Urine Trace Negative RBC Urine 0-2 0-2 /HPF WBC Urine 0-5 0-5 /HPF Squamous Epithelial Cell Urine 0-2 0-2 /HPF Bacteria Urine None Seen None Seen Hyaline Casts Urine 0-2 0-2 /LPF XR foot RT 2V (Not yet revie wed by provider) Interpretation: Performing Lab: Notes/Report: [address] [address] XRay Report Signed Patient: Anthony Goodman MR#: [id number] : 1940 Acct:[id number] Age/Sex: 84 / M ADM Date: 11/17/24 Loc: HO.CHIQUIS Attending Dr: Jordan Gabriel MD Ordering Physician: Jordan Gabriel MD Date of Service: 11/17/24 Procedure(s): XR foot RT 2V Accession Number(s): [id number] cc: Jordan Gabriel MD EXAMINATION: XR FOOT [...] 11/17/24 1137 DD/ 1115 TD/TT: 11/17/24 1123 Analytical Engineer: [place] [address] XRay Report Signed Patient: Anthony Goodman Sr MR#: [id number] : 1940 Acct:[id number] Age/Sex: 84 / M ADM Date: 11/17/24 Loc: HO.XRAY Attending Dr: Jordan Gabriel MD Ordering Physician: Jordan Gabriel MD Date of Service: 11/17/24 Procedure(s): XR fernanda t RT 2V Accession Number(s): [id number] cc: Jordan Gbariel MD EXAMINATION: XR FOOT 1-2 VIEWS RIGHT [...] 11/17/24 1137 DD/ 1115 TD/TT: 11/17/24 1123 Analytical Engineer: Complete Blood Count no Diff Reviewed date:02/04/2024 01:50:25 PM Interpretation: Performing Lab:[facility], [address] [place] [phone] Notes/Report: White Blood Count 7.2 4.8-10.8 X10*3/uL [...] Panel Reviewed date:02/04/2024 01:50:04 PM Interpretation: Performing Lab:[facility], [address] [place] [phone] Notes/Report: Sodium 138 135-145 mmol/L Potassium 4.9 [...] Ferritin Reviewed date:02/04/2024 12:53:47 PM Interpretation: Performing Lab:[facility], [address] [place] [phone] Notes/Report: Ferritin 21 20-250 ng/mL Lactate Dehydrogenase Reviewed date:02/04/2024 12:50:52 PM Interpretation: Performing Lab:[facility], [address] [place] [phone] Notes/Report: Lactate Dehydrogenase 155 118-273 U/L Complete Blood Count Auto Di ff Reviewed date:04/07/2024 05:05:38 PM Interpretation: Performing Lab:[facility], [address] [place] [phone] Notes/Report: White Blood Count 7.3 4.8-10.8 X10*3/uL [...] 0.0-0.2 /100WBC Neutrophils Absolute Auto 4.6 2.0-8.3 x10*3/uL Imm Gran Abs Auto 0.02 0.00-0.03 X10*3/uL Lymphocytes Absolute Auto 1.6 1.2-4.9 X10*3/uL Monocytes Absolute Auto 0.6 0.1-1.2 X10*3/uL Eosinophils Absolute Auto 0.5 0.0-0.4 X10*3/uL Basophils Absolute Auto 0.1 0.0-0.2 X10*3/uL NRBC Abs Auto 0.000 0.0-0.012 X10*3/uL Ferritin Reviewed date:04/07/2024 04:41:39 PM Interpretation: Performing Lab:[facility], [address] [place] [phone] Notes/Report: Ferritin 30 20-250 ng/mL Lactate Dehydrogenase Reviewed date:04/07/2024 05:05:11 PM Interpretation: Performing Lab:[facility], [address] [place] [phone] Notes/Report: Lactate Dehydrogenase 165 118-273 U/L Hold Gold Reviewed date:05/12/2024 12:08:08 PM Interpretation: Performing Lab:[facility], [address] [place] [phone] Notes/Report: Hold Gold See Note Specimen held untested for 24 hours; Call to request Chemistry testing. CT chest wo con Reviewed date:05/14/2024 08:55:12 AM Interpretation: Performing Lab: Notes/Report: [address] [place] [address] CT Scan Report Signed Patient: Anthony Goodman Sr MR#: [id number] : 1940 Acct:[id number] Age/Sex: 84 / M ADM Date: 05/13/24 Loc: HO.CT Attending Dr: Jannet Evans NP Ordering Physician: JANNET EVANS NP Date of Service: 05/13/24 Procedure(s): CT chest wo IV con Accession Number(s): [id number] cc: JANNET EVANS ALCOHOL RUBBER; Jordan Gabriel MD Report Number: [id number]: Total DLP = 168.00 mGy-cm EXAMINATION: CT [...] 05/13/24 1142 DD/ 1109 TD/TT: 05/13/24 1119 Analytical Engineer: [place] [address] CT Scan Report Signed Patient: Anthony Goodman Sr MR#: [id number] : 1940 Acct:[id number] Age/Sex: 84 / M ADM Date: 05/13/24 Loc: HO.CT Attending Dr: Jannet Evans NP Ordering Physician: JANNET EVANS NP Date of Service: 05/13/24 Procedure(s): CT [facility] wo IV con Accession Number(s): [id number] cc: JANNET EVANS NP ; Jordan Gabriel MD Report Number: [id number]: Total DLP = 168.00 mGy-cm EXAMINATION: CT [...] healed fracture left latera l 10th rib. CT/CT chest wo IV con [...] by: Oseas Wallace MD 05/13/2024 11:42 AM [facility] Dictated By: Oseas Wallace MD Signed By: <Electronically signed by Oseas Wallace MD in [place]> 05/13/24 1142 DD/ 1109 TD/TT: 05/13/24 1119 Analytical Engineer: Complete Blood Count no Diff Reviewed date:07/07/2024 11:32:23 AM Interpretation: Performing Lab:[facility], [address] [place] [phone] Notes/Report: White Blood Count 6.7 4.8-10.8 X10*3/uL [...] Panel Reviewed date:07/07/2024 11:32:43 AM Interpretation: Performing Lab:[facility], [address] [place] [phone] Notes/Report: Sodium 138 135-145 mmol/L Potassium 4.6 [...] Ferritin Reviewed date:07/07/2024 11:31:21 AM Interpretation: Performing Lab:[address] [address] Notes/Report: Ferritin 45 20-250 ng/mL SARS-CoV2/FLU/RSV Reviewed date:07/13/2024 04:20:38 PM Interpretation: Performing Lab:[address] [address] Notes/Report: Influenza A PCR NEGATIVE Negative Influenza B PCR NEGATIVE Negative Resp Syncy Virus RNA Qual PCR NEGATIVE Negative SARS COV2 PCR INHOUSE NEGATIVE Negative All test results must be correlated with clinical findings. Negative results do not preclude SARS-CoV2, influenza A virus, influenza B virus and/or RSV infection and should not be used as the sole basis for treatment or other patient management decisions. Negative results must be combined with clinical observations, patient history, and epidemiological information. This test has not been evaluated for monitoring treatment of infection. This test has been authorized by the FDA under an Emergency Use Authorization (EUA) for use by authorized laboratories. Testing performed on the [employer] Interactive GeneXpert utilizing real-time RT-PCR. All SARS CoV2 and positive influenza A/B results are reported to [facility]. XR chest 2V Reviewed date:07/13/2024 04:21:30 PM Interpretation: Performing Lab: Notes/Report: [facility] [address] [place] [address] XRay Report Signed Patient: Anthony Goodman MR#: [id number] : 1940 Acct:[id number] Age/Sex: 84 / M ADM Date: 07/11/24 Loc: HO.HMGCX Attending Dr: Awilda ARTIS Ordering Physician: Awilda Lozoya Date of Service: 07/11/24 Procedure(s): XR chest 2V Accession Number(s): [id number] cc: Jordan Gabriel MD; Awilda Lozoya CLINICAL HISTORY: pain 2 view chest x-ray Comparison: 07/31/2023 Findings: No new consolidation or effusion. Heart size is normal. No acute fracture. IMPRESSION: 1. No acute findings. This document has been electronically signed by: Alfred Ma MD on 07/11/2024 10:35:49 Dictated By: Alfred Ma MD Signed By: <Electronically signed by Alfred Ma MD in OV> 07/11/24 1036 DD/ 1035 TD/TT: 07/11/24 1035 Analytical Engineer: [facility] [address] [place] [address] [place] [address] XRay Report Signed Patient: Anthony Goodman MR#: [id number] : 1940 Acct:[id number] Age/Sex: 84 / M ADM Date: 07/11/24 Loc: HO.HMGCX Attending Dr: Geoffrey ARTIS Ordering Physician: Awilda Lozoya Date of Service: 07/11/24 Procedure(s): XR [facility] 2V Accession Number(s): [id number] cc: Jordan Gabriel MD; Awilda Lozoya CLINICAL HISTORY: pain 2 view chest x-ray Comparison: 07/31/2023 Findings: No new consolidation or effusion. Heart size is normal. No acute fracture. IMPRESSION: 1. No acute findings. This document has be en electronically signed by: Alfred Ma MD on 07/11/2024 10:35:49 Dictated By: Alfred Ma MD Signed By: <Electronically signed by Alfred Ma MD in OV> 07/11/24 1036 DD/ 1035 TD/TT: 07/11/24 1035 Analytical Engineer: Glucose, Whole Blood Reviewed date:07/23/2024 02:25:52 PM Interpretation: Performing Lab:[facility], [address] [place] [phone] Notes/Report: Glucose, Whole Blood 101 60-115 mg/dL METER # : [id number] Complete Blood Count Auto Di ff Reviewed date:10/06/2024 05:13:16 PM Interpretation: Performing Lab:[facility], [address] [place] [phone] Notes/Report: White Blood Count 7.4 4.8-10.8 X10*3/uL Red Blood Count 3.63 4.60-5.80 X10*6/uL Hemoglobin 10.4 14.0-18.0 g/dl Hematocrit 32.2 42.0-52.0 % Mean Corpuscular Volume 88.7 80.0-98.0 fL Mean Corpuscular Hemoglobin 28.7 27.0-33.0 pg Mean Corpuscular HGB Conc 32.3 31.0-36.0 g/dl Red Cell Distribution Width 14.6 11.0-16.0 % Platelet Count 319 160-400 X10*3/uL Mean Platelet Volume 9.7 9.4-12.4 fL Neutrophils Percent Auto 60.9 45-73 % Imm Gran Pct Auto 0.3 0.0-0.4 % Lymphocytes Percent Auto 20.9 20-40 % Monocytes Percent Auto 11.1 2-11 % Eosinophils Percent Auto 6.0 0-4 % Basophils Percent Auto 0.8 0-2 % NRBC Pct Auto 0.0 0.0-0.2 /100WBC Neutrophils Absolute Auto 4.5 2.0-8.3 x10*3/uL Imm Gran Abs Auto 0.02 0.00-0.03 X10*3/uL Lymphocytes Absolute Auto 1.5 1.2-4.9 X10*3/uL Monocytes Absolute Auto 0.8 0.1-1.2 X10*3/uL Eosinophils Absolute Auto 0.4 0.0-0.4 X10*3/uL Basophils Absolute Auto 0.1 0.0-0.2 X10*3/uL NRBC Abs Auto 0.000 0.0-0.012 X10*3/uL Comprehensive Met. Panel Reviewed date:10/06/2024 03:35:55 PM Interpretation: Performing Lab:[facility], [address] [place] [phone] Notes/Report: Sodium 142 135-145 mmol/L Potassium 5.4 3.3-5.1 mmol/L Chloride 109 96-108 mmol/L Carbon Dioxide 23 22-29 mmol/L Anion Gap 15 12-20 Blood Urea Nitrogen 26 9-16 mg/dL Creatinine 1.50 0.5-1.4 mg/dL Creatinine Clr Calc Pharmacy 42.9 eGFR (calculated from the MDRD study equation) and eCrCl (calculated from the Cockcroft-Gault equation) are based on different parameters and may not yield comparable results. If eCrCl result is absurd, please check patient's height/weight. Estimated Glomerular Filt Rate 45 Chronic Kidney Disease: Estimated GFR < 60 mL/min/1.73m2 Severe Kidney Disease: Estimated GFR < 15 mL/min/1.73m2 Glucose Random 113 60-115 mg/dL Calcium 9.2 8.4-10.2 mg/dL Bilirubin Total 0.5 0.0-1.0 mg/dL Aspartate Amino Transferase 33 5-37 U/L Alanine Aminotransferase 43 0-40 U/L Total Protein 7.0 6.5-8.0 g/dL Albumin Level 4.5 3.5-5.0 g/dL Alkaline Phosphatase 87 39-117 U/L Ferritin Reviewed date:10/06/2024 12:19:56 PM Interpretation: Performing Lab:[facility], [address] [place] [phone] Notes/Report: Ferritin 28 20-250 ng/mL Haptoglobin Reviewed date:10/06/2024 12:19:09 PM Interpretation: Performing Lab:[facility], [address] [place] [phone] Notes/Report: Haptoglobin 200 40-268 mg/dL US venous duplex LE LT Reviewed date:11/02/2024 11:56:32 AM Interpretation: Performing Lab: Notes/Report: [address] [address] Ultrasound Report Signed Patient: Anthony Goodman MR#: [id number] : 1940 Acct:[id number] Age/Sex: 84 / M ADM Date: 11/02/24 Loc: .US Attending Dr: Jordan Gabriel MD Ordering Physician: Jordan Gabriel MD Date of Service: 11/02/24 Procedure(s): US venous duplex LE LT Accession Number(s): [id number] cc: Jordan Gabriel MD EXAMINATION: US LOWER EXTREMITY VEINS LIMITED FOLLOW UP LEFT HISTORY: GOUT ATTACK, LEG EDEMA COMPARISON: Comparison is made with the prior examination dated 08/23/2020. TECHNIQUE: Duplex and color Doppler sonographic examination of the deep venous system of the left lower extremity was performed. FINDINGS: The common femoral, superficial femoral, and popliteal veins are patent demonstrating normal compressibility, spontaneous flow, and augmentation. There is a normal color and spectral Doppler waveform appearance of the visualized deep venous system above the knee. The posterior tibial and peroneal veins are patent. There is intimal thickening of the small saphenous vein which may be the result of prior thrombosis. US/US venous duplex LE LT IMPRESSION: No evidence of acute DVT in the left lower extremity. Electronically signed by: Anthony Bennett MD 11/02/2024 11:28 AM EDT Dictated By: Anthony Bennett MD Signed By: <Electronically signed by Anthony Bennett MD in OV> 11/02/24 1128 DD/ 1106 TD/TT: 11/02/24 1114 Analytical Engineer: [place] [address] Ultrasound Report Signed Patient: Anthony Goodman MR#: [id number] : 1940 Acct:[id number] Age/Sex: 84 / M ADM Date: 11/02/24 Loc: .US Attending Dr: Jordan Gabriel MD Ordering Physician: Jordan Gabriel MD Date of Service: 11/02/24 Procedure(s): US christopher ous duplex LE LT Accession Number(s): [id number] cc: Jordan Gabriel MD EXAMINATION: US LOWE R EXTREMITY VEINS LIMITED FOLLOW UP LEFT HISTORY: GOUT ATTACK , LEG EDEMA COMPARISON: Comparis on is made with the prior examination dated 08/23/2020. TECHNIQUE: Duplex an d color Doppler sonographic examination of the deep venous system o f the left lower extremity was performed. FINDINGS: The common femoral, superficial femoral, and popliteal veins are patent demonstrating normal compressibility, spontaneous flow, and augmentation. There is a normal color and spectral Doppler waveform appearance of the visualized deep venous system above the knee. The posterior tibial and peroneal veins are patent. There is intimal thickening of the sm all saphenous vein which may be the result of prior thrombosis. ___ US/US venous duplex LE LT IMPRESSION: No evidence of acute DVT in the left lower extremity. Electronically cole d by: Anthony Bennett MD 11/02/2024 11:28 AM EDT Dictated By: Anthony Bennett MD Signed By: <Electronically signed by Anthony Bennett MD in OV> 11/02/24 1128 DD/ 1106 TD/TT: 11/02/24 1114 Analytical Engineer: Reason For Referral Reason please frederick tovar Diagnosis 1 Esophageal dysfuncti on (K22.4) Referral Organization Jordan Gabriel MD Referring Provider First Name Jordan Referring Provider Last Name Nery Referring Provider Speciality Internal M edicine Referred Provider Anthony Curry Referred Provider Specialty Gastroentero logy General Notes Narda Elizabeth 0 05/22/2024 09:43:41 AM >info faxedGlenn Annette 05/28/2024 02:48:10 PM >referral info mailedAshley Patti A 07/20/2024 10:03:45 AM >OFFICE NOTE RECD Referral Priority Routine Referral Appointment Date 07/01/2024 Reason I48.[address] [...] Specialty Cardiovascul ar Disease Referral Priority Routine Medications Medication SIG (Take, Route, Frequency, Duration) Notes Start Date End Date Status Omeprazole 20 MG 1 capsule Orally Onc e a day Active Benadryl Allergy 25 MG 1 tablet as neede d Orally every 8 hrs Not-Taking Ferrous Sulfate 325 (65 Fe) MG 1 tablet Orally BID Active FreeStyle Lite Test 0 as directed In Vit ro DX: E 11.9 use tot test blood sugar once a day for 30 days 01/17/2016 Active Ventolin HFA 108 (90 Base) MCG/ACT 2 puffs as needed Inhalation every 4 hrs Not-Takin g Atorvastatin Calcium 80 MG 1 tablet Orally Once a day Active Symbicort 160-4.5 MCG/ACT 2 puffs Inhala tion Twice a day for 30 days 11/14/2017 Not-Taki ng FreeStyle Lite 0 as directed invitro DX: E 11.9 once a day for 30 days 01/17/2016 Active predniSONE 10 MG 1 tablet with food o r milk Orally 4 tabs for 3 days,3tabs for 3 days, 2 tabs for 3 days, and 1 tab for 3 days for 14 days 07/24/2024 Not-Taking metFORMIN HCl 500 MG TAKE 1 TABLET BY MO UTH TWICE A DAY WITH MEALS for 90 Active Lisinopril 20 MG TAKE 1 TABLET BY JANETH TH EVERY DAY for 90 Active Metoprolol Succinate ER 25 MG 1 tablet Orally Once a day for 30 days 11/17/2024 Active Albuterol Sulfate HFA 108 (90 Base) MCG/ACT 1 puff as needed Inhalation every 4 hrs 04/13/2022 Active Nystatin 764559 UNIT/GM 1 application Externally Twice a day for 14 days 04/28/2019 Active Xarelto 20 MG 1 tablet with food Orally Once a day Active Immunizations Vaccine Route Administration Date Status Comme nts Flu Vaccine Unknown 01/10/2012 Administered given at [facility] PPSV23 (Pnemovax) Unknown 01/10/2012 Administered given at [facility] [place] Flu Vaccine Unknown 01/07/2014 Administered Flu Vaccine Unknown 12/31/2013 Administered received at [facility] Prevnar 13 IM Intramuscular 08/20/2014 Administered Flu Vaccine IM Intramuscular 12/22/2014 Administered pt re cieved high dose flu vaccine at [facility] in [place], Fluarix Quadrivalent Unknown 12/21/2015 Administered [facility] Shingles Unknown 01/26/2015 Administered [facility] Fluarix Quadrivalent IM Intramuscular 12/06/2016 Administe red PPSV23 (Pnemovax) IM Intramuscular 04/15/2017 Administered Influenza High Dose Unknown 12/17/2017 Administered [facility] Fluarix Quadrivalent IM Intramuscular 12/19/2018 Adminvidya red pt was given the vaccine at [facility] in [place]. 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) Active confirmed Problem Chronic obstructive pulmonary disease with acute lower respiratory infection (661617295) COPD (chronic obstructive pulmonary disease) with acute bronchitis (J44.0) Active confirmed Problem 52288097 Iron deficiency anemia, unspecified iron deficiency anemia type (D50.9) Active confirmed Problem Claudication (88236491) Claudication (I73.9) Active confirmed Problem 138294671 Adenoma (D36.9) Active confirmed Problem 4176816287913247 Acute idiopathi c gout involving toe of left foot (M10.072) Active confirmed Problem 41448725 Lymphadenopathy, mediastinal (R59.0) Active confirmed Problem 166186172 Rising PSA level (R97.20) Active confirmed Problem 765324318 History of calcu leonard of gallbladder (Z87.19) Active confirmed Problem 801003358 Pure hypercholesterolemia (E78.00) Active confirmed Problem Gout (93263740) Acute gout of le ft foot, unspecified cause (M10.9) Active confirmed Problem 82063294 Hip arthritis (M16.10) Active confirme d Problem 185889650 Adenocarcinoma o f lung, 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) Active confirmed Problem 625728831 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 Problem 685747237 Esophageal dysfu nction (K22.4) Active confirmed Problem 354696394 Lower esophageal ring (Schatzki) (K22.2) Active confirmed Vital Signs Heart Rate 110 /min 11/17/2024 Blood pressure diastolic 50 mm Hg 11/17/2024 Height 71 in 11/17/2024 Blood pressure systolic 102 mm Hg 11/17/2024 Weight 201 lbs 11/17/2024 BMI 28.03 kg/m2 11/17/2024 Encounters Encounter Location Date Provider Diagnosis Jordan Gabriel MD [address] [place] [phone] 12/09/2023 Jordan Gabriel Encounter for immuni zation Z23 Jordan Gabriel MD [address] [place] [phone] 12/16/2023 Jordan Gabriel Chronic hyperkalemia E87.5 Jordan Gabriel MD [address] [place] [phone] 05/12/2024 Jordan Gabriel Type 2 diabetes mina itus without complications E11.9 and Pure hypercholesterolemia E78.00 Jordan Gabriel MD [address] [place] [phone] 10/09/2024 Jordan Gabriel Hyperkalemia E87.5 Jordan Gabriel MD [address] [place] [address] [id number] 11/10/2024 Jordan Gabriel Type 2 diabetes mina itus without complications E11.9 ; Pure hypercholesterolemia E78.00 ; Rising PSA level R97.20 ; Iron deficiency anemia, unspecified iron deficiency anemia type D50.9 and Essential hypertension I10 Jordan Gabriel MD [address] [place] [address] [id number] 11/17/2024 Jordan Gabriel Foot pain, right M79 .671 ; Paroxysmal atrial fibrillation I48.0 and Elevated BUN R79.9 Jordan Gabriel MD [address] [place] [address] [id number] 05/19/2024 Jordan Gabriel Encounter for genera l adult medical examination with abnormal findings Z00.01 ; Esophageal dysfunction K22.4 ; Pure hypercholesterolemia E78.00 and Type 2 diabetes mellitus without complications E11.9 Jordan Gabriel MD [address] [place] [address] [id number] 07/24/2024 Jordan Gabriel Gout attack M10.9 Jordan Gabriel MD [address] [place] [address] [id number] 11/02/2024 Jordan Gabriel Gout attack M10.9 an d Leg edema R60.0 Jordan Gabriel MD [address] [place] [address] [id number] 11/09/2024 Jordan Gabriel Gout attack M10.9 an d Leg edema R60.0 Jordan Gabriel MD [address] [place] [address] [id number] 12/10/2023 Jordan Gabriel 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 Jordan Gabriel MD [address] [place] [address] [id number] 07/17/2024 Jordan Gabriel MD [address] [place] [address] [id number] 09/08/2024 Jordan Gabriel Assessments Encounter Date Diagnosis (ICD Code) Assessment Notes Treatment Notes Treatment Clinical Notes Section Notes 12/09/2023 Encounter for immunization (ICD-10 - Z23) 12/16/2023 Chronic hyperkalemia (ICD-10 - E87.5) 05/12/2024 Type 2 diabetes mellitus without complications (ICD-10 - E11.9) 10/09/2024 Hyperkalemia (ICD-10 - E87.5) 11/10/2024 Type 2 diabetes mellitus without complications (ICD-10 - E11.9) 11/17/2024 Foot pain, right (ICD-10 - M79.671) order given to patient 11/17/2024 Paroxysmal atrial fibrillation (ICD-10 - I48.0) getting ecg and back to dr padilla/salena ecg with regular rythm but is rapid afib. 05/19/2024 Encounter for genera l adult medical examination with abnormal findings (ICD-10 - Z00.01) 05/19/2024 Esophageal dysfuncti on (ICD-10 - K22.4) referral to dr curry 07/24/2024 Gout attack (ICD-10 - M10.9) had been on prednisone for 5 days and it came back so will try a taper, patient verbalized understandong of medication nd directions for use 11/02/2024 Gout attack (ICD-10 - M10.9) patient verbalized nderstanding of medication and directions for use 11/02/2024 Leg edema (ICD-10 - R60.0) being done today 11-02-2024 at 11am at [facility] [place] , pending diagnostic testing 11/09/2024 Gout attack (ICD-10 - M10.9) has resolved, patient verbalized understanding to stop medication 12/10/2023 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) 05/12/2024 Pure hypercholesterolemia (ICD-10 - E78.00) 11/10/2024 Pure hypercholesterolemia (ICD-10 - E78.00) 11/17/2024 Elevated BUN (ICD-10 - R79.9) probably from the lasix. shich has been stopped 05/19/2024 Pure hypercholesterolemia (ICD-10 - E78.00) has good numbers 11/09/2024 Leg edema (ICD-10 - R60.0) started to go away with the prednisone, has resolved 11/10/2024 Rising PSA level (ICD-10 - R97.20) 05/19/2024 Type 2 diabetes mellitus without complications (ICD-10 - E11.9) 11/10/2024 Iron deficiency anem ia, unspecified iron deficiency anemia type (ICD-10 - D50.9) 11/10/2024 Essential hypertensi on (ICD-10 - I10) Plan Of Treatment Pending Test Test Name Order Date Electrocardiogram (EKG) 11/17/2024 Electrocardiogram (EKG) 07/21/2013 XR CHEST 2 VIEW PA & LAT 11/13/2022 XR GI SERIES 07/19/2023 US LEG LT VENOUS DOPPLER 11/02/2024 PFT 08/20/2014 Comprehensive [place]. Panel Fast CT chest w con 10/24/2023 US venous duplex LE LT 08/23/2020 XR foot RT 2V 11/17/2024 CBC (INCLUDES DIFF/PLT) 08/30/2020 BUN 08/30/2020 CREATININE 08/30/2020 Next Appt Details Provider Name:Jordan nettlesr, 12/01/2024 07:30:00 AM, [address] [place] [address], [address], [phone], Provider Name:Jordan nettlesr, 12/08/2024 09:15:00 AM, [address] [place] [address], [phone], Provider Name:Jordan nettlesr, 05/21/2025 01:45:00 PM, [address] [place] [address], [address], [phone], Provider Name:Jordan nettlesr, 11/15/2025 07:15:00 AM, [address] [place] [address], [phone], Provider Name:Jordan nettlesr, 11/22/2025 10:30:00 AM, [address] [place] [address], [phone], Insurance Providers Payer Name Payer Address Payer Phone Subscriber Number Group Number Insured Name Patient Relationship to Insured Coverage Start Date Coverage End Date MEDICARE NHIC FLIP [address] [place] [address] [id number] Anthony Goodman Self - patient is the insured [employer] [address] [place], [place] [id number] [phone] [id number] Anthony Goodman Self - patient is [...]
== END 2024-11-17 10:59 | disposition home or self-care (01) ==
LOC: HO.XRAY 10:58
PROVIDERS: PCP Internal Medicine; Visit Provider Internal Medicine
DX: M79.671 Pain in right foot (principal)
CPT/HCPCS: 73620

== ENCOUNTER → 2024-11-17 11:05 | Outpatient (BNV) | payer MEDICARE, SELFPAY | PROVIDERS: PCP Internal Medicine; Visit Provider Radiology Diagnostic Radiology | DX: M19.071 Primary osteoarthritis, right ankle and foot (principal) | CPT/HCPCS: 73620 ==

== ENCOUNTER 2024-11-24 11:23 | Outpatient (REF) | payer MEDICARE, SELFPAY ==
[2024-11-24 11:54] LABS: Blood Urea Nitrogen 21 mg/dL (9-16); Estimated Glomerular Filt Rate 50
== END 2024-11-24 11:24 | disposition home or self-care (01) ==
LOC: HO.LNP 11:23
PROVIDERS: Visit Provider Internal Medicine
DX: I48.0 Paroxysmal atrial fibrillation (principal)
CPT/HCPCS: 82565; 84520

== ENCOUNTER → 2024-12-03 07:37 | Outpatient (REF) | payer MEDICARE, SELFPAY ==
--- OUTSIDE RECORDS SUMMARY | 2024-07-23 10:20 | XMS_ITS ---
Author Organization [facility] Address [address] [place] [address] Care Team Providers Care Biofuels Processing Technician Name Role Phone Jordan Gabriel MD Primary Care Provider Patito Carpenter [phone] REASON FOR VISIT gerd,hx esophageal stricture,dysphagia Encounters Encounter Location Date Provider Diagnosis [facility] [address] [place] [address] [place] [phone] 07/23/2024 Patito Andrews Esophageal strictu re K22.2 and Hiatal hernia K44.9 Assessments Encounter Date Diagnosis (ICD Code) Assessment Notes Treatment Notes Treatment Clinical Notes Section Notes 07/23/2024 Esophageal stricture (ICD-10 - K22.2) 07/23/2024 Hiatal hernia (ICD-10 - K44.9) Plan Of Treatment No Information Progress Notes * PATITO BUSTILLO CDOB:1939 (84 yo M)Acc No.[id number]:07/23/2024 EGD/MAC Patient: Carlota BRICENO PATITO Buckley Provider: Jose Francisco Andrews MD :1940 A ge:84 Y S ex:Male Date:07/23/2024 Address: [id number] Pcp:Jordan Gabriel MD Subjective: * Chief Complaints: [...] 0 07/23/2024 Generated for Gautam oh/Isaac/Editting on: 0 12/03/2024 07:41 AM EDT
--- OUTSIDE RECORDS SUMMARY | 2024-11-09 07:45 | XMS_ITS ---
Author Organization Jordan Gabriel MD Address [address] [place] [address] [phone] Care Team Providers Care Mechanical Design Engineer Products Name Role Phone Jordan Gabriel Primary Care Provider [phone] Allergies No Known Allergies REASON FOR VISIT [...] for 30 days 11/14/2017 Not-Guillermo ng Nystatin 117620 UNIT/GM 1 application Externally Twice a day for 14 days 04/28/2019 Active metFORMIN HCl 500 MG TAKE 1 TABLET BY MO [facility] TWICE A DAY WITH MEALS for 90 Active Albuterol Sulfate HFA 108 (90 Base) MCG/ACT 1 puff as needed Inhalation every 4 hrs 04/13/2022 Active Lisinopril 20 MG TAKE 1 TABLET BY [facility] EVERY DAY for 90 Active [...] kg/m2 11/09/2024 weight is down 2 pounds [facility] e 11-02-24 Encounters Encounter Location Date Provider Diagnosis Jordan Gabriel MD [address] [place] [address] [phone] 11/09/2024 Jordan Gabriel Gout attack M10.9 and [...] 6 Weeks, Reason: Provider Name:Jordan Cyr ier, 12/08/2024 09:15:00 AM, [address] [place] [address], [address], [phone], Provider Name:Jordan Cyr ier, 05/21/2025 01:45:00 PM, [address] [place] [address], [address], [phone], Provider Name:Jordan Cyr ier, 11/15/2025 07:15:00 AM, [address] [place] [address], [address], [phone], Provider Name:Jordan Eric Klarissa nettlesr, 11/22/2025 10:30:00 AM, [address] [place] [address], [address], [phone], Progress Notes * Anthony GOODMAN CDOB:1939 (84 yo M)Acc No.[id number]:11/09/2024 Patient: Anthony GARCIA Provider: Emery Gabriel MD :1940 A ge:84 Y S ex:Male Date:11/09/2024 [id number] Subjective: * Chief Complaints: * 1 week [...] as needed Inhalation every 4 hrs Nystatin 985385 UNIT/GM Cream 1 application Externally Twice a [...] needed Inhalation every 4 hrs Taking Nystatin 933938 UNIT/GM Cream 1 application Externally Twice a [...] 0 11/09/2024 Generated for Gautam oh/Isaac/Editting on: 0 12/03/2024 07:42 AM EDT History and Physical Notes * [...]
--- OUTSIDE RECORDS SUMMARY | 2024-11-10 04:00 | XMS_ITS ---
Author Organization Jordan Gabriel MD Address [address] [place] [phone] Care Team Providers Care Lead Cytogenetic Technologist Name Role Phone Jordan Gabriel Primary Care Provider [phone] Results Component Value Reference Range Notes Comprehensive [place]. Panel Fa st (Not yet reviewed by provider) Interpretation:12-08-2024 Performing Lab:[facility], [address] [place] [phone] Notes/Report: Sodium 136 135-145 mmol/L Potassium 4.7 [...] ff Reviewed date:11/10/2024 04:43:39 PM Interpretation: Performing Lab:[facility], [address] [place] [phone] Notes/Report: White Blood Count 14.2 4.8-10.8 X10*3/uL [...] PROFILE Reviewed date:11/10/2024 12:58:08 PM Interpretation: Performing Lab:[facility], [address] [place] [phone] Notes/Report: Iron 49 45-160 mcg/dL Total Iron Binding Capacity 282 228-428 mcg/d L Percent Iron Saturation 17 15-50 % Unsaturated Iron Binding 233 Lipid Panel Reviewed date:11/10/2024 12:57:18 PM Interpretation: Performing Lab:[facility], [address] [place] [phone] Notes/Report: Triglycerides 81 <150 mg/dL Desirable Triglyceride: [...] (Free>4and<10) Reviewed date:11/10/2024 01:00:52 PM Interpretation: Performing Lab:[facility], [address] [place] [phone] Notes/Report: PSA,Total (Free>4and<10) 2.37 0.00-4.00 ng/mL A [...] Random Reviewed date:11/10/2024 04:33:57 PM Interpretation: Performing Lab:[address] [phone] Notes/Report: Creatinine Urine 44.71 Microalbumin Urine 9.0 Microalbum/Creatinine Ratio Ur 20.1 <30 ug/mg cr Albumin/Creatinine Ratio Reference Ranges: Normal: < 30 ug/mg creatinine Microalbuminuria: 30 - 300 ug/mg creatinine Clinical Albuminuria: > 300 ug/mg creatinine Hemoglobin A1c Reviewed date:11/10/2024 12:57:28 PM Interpretation: Performing Lab:[address] [phone] Notes/Report: Hemoglobin A1c % 6.5 <6.0 % [...] average glucose, using the formula of the W0E-Lemxois Average Glucose study (ADAG), Diabetes Care, Vol.31,#8, Oct. 2007 UA ClnCatch+Micro w/rflx Cul t Reviewed date:11/11/2024 12:30:51 PM Interpretation: Performing Lab:[facility], [address] [place] [phone] Notes/Report: Urine, Clean Catch Color Urine Yellow Appearance Urine Clear PH 5.5 5.0-9.0 Glucose Urine UA Negative Negative mg/dL Urine Blood Negative Negative Specific Benton - Urine 1.010 1.005-1.025 Urine Protein Negative [...] Location Date Provider Diagnosis Jordan Gabriel MD [address] [place] [address] [place] [phone] 11/10/2024 Jordan Gabriel Type 2 diabetes mina [...] Pending Test Test Name Order Date Comprehensive [place]. Panel Fast Next Appt Details Provider Name:Jordan ward, 12/08/2024 09:15:00 AM, [address] [place] [address], [address], [phone], Provider Name:Jordan ward, 05/21/2025 01:45:00 PM, [address] [place] [address], [address], [phone], Provider Name:Jordan ward, 11/15/2025 07:15:00 AM, [address] [place] [address], [address], [phone], Provider Name:Jordan ward, 11/22/2025 10:30:00 AM, [address] [place] [address] Drive, [address], [place], [phone], Progress Notes * Anthony GOODMAN CDOB:1939 (84 yo M)Acc No.[id number]:11/10/2024 Progress Note Patient: Anthony GARCIA Provider: Emery Gabriel MD :1940 A ge:84 Y S ex:Male Date:11/10/2024 Address: [id number] Subjective: * Chief Complaints: * 1 . [...] 2. P ure hypercholesterolemia L AB: [facility] [place]. Panel Fast (Collection Date & Time - [...] R ising PSA level L AB: [facility] [place]. Panel Fast (Collection Date & Time - [...] iron deficiency anemia type L AB: [facility] [place]. Panel Fast (Collection Date & Time - [...] 5. E ssential hypertension L AB: [facility] [place]. Panel Fast (Collection Date & Time - [...] 0 11/10/2024 Generated for Gautam oh/Isaac/Esequiel on: 0 12/03/2024 07:43 AM EDT
--- OUTSIDE RECORDS SUMMARY | 2024-11-17 06:30 | XMS_ITS ---
Author Organization Jordan Gabriel MD Address [address] [place] [phone] Care Team Providers Care Oven Heater Helper Name Role Phone Jordan Gabriel Primary Care Provider Allergies No Known Allergies Results Component Value Reference Range Notes XR foot RT 2V Reviewed date:11/17/2024 04:42:26 PM Interpretation: Performing Lab: Notes/Report: [address] [address] XRay Report Signed Patient: Anthony Goodman MR#: [id number] : 1940 Acct:[id number] Age/Sex: 84 / M ADM Date: 11/17/24 Loc: HO.XRAY Attending Dr: Jordan Gabriel MD Ordering Physician: Jordan Gabriel MD Date of Service: 11/17/24 Procedure(s): XR foot RT 2V Accession Number(s): [id number] cc: Jordan Gabriel MD EXAMINATION: XR FOOT [...] 11/17/24 1137 DD/ 1115 TD/TT: 11/17/24 1123 Development Representative: [place] [address] XRay Report Signed Patient: Angelia Goodman Sr MR#: [id number] : 1940 Acct:[id number] Age/Sex: 84 / M ADM Date: 11/17/24 Loc: HO.XRBRADEN Attending Dr: Jordan Gabriel MD Ordering Physician: Jordan Gabriel MD Date of Service: 11/17/24 Procedure(s): XR foot RT 2V Accession Number(s): [id number] cc: Jordan Gabriel MD EXAMINATION: XR FOOT [...] By: Anthony Bennett MD Signed By: <Litzy icadakota signed by Anthony Bennett MD in OV> 11/17/24 1137 DD/ 1115 TD/TT: 11/17/24 1123 Development Representative: Reason For Referral Reason I48.0 Paroxysmal atr [...] Padilla Referred Provider Specialty Cardiovascul ar Disease Referral Priority Routine REASON FOR VISIT COMP EXAM/must Comp met labs Medications Medication SIG (Take, Route, Frequency, Duration) Notes Start Date End Date Status Nystatin 249575 UNIT/GM 1 application Externally Twice a day for 14 days 04/28/2019 Active Lisinopril 20 MG TAKE 1 TABLET BY JANETH TH EVERY DAY Active Omeprazole 20 MG 1 capsule Orally Onc e a day Active FreeStyle Lite Test 0 as directed In Vit ro DX: E 11.9 use tot test blood sugar once a day for 30 days 01/17/2016 Active metFORMIN HCl 500 MG TAKE 1 TABLET BY MO [facility] TWICE A DAY WITH MEALS Active Albuterol [...] Location Date Provider Diagnosis Jordan Gabriel MD [address] [place] [address] [address] [place], [place] [phone] 11/17/2024 Jordan Gabriel Foot pain, right M79 [...] Notes Foot pain, right order given to isabel dejesus Paroxysmal atrial fibrillation getting e cg and [...] 3 Weeks, Reason: Provider Name:Jordan Cyr ier, 12/08/2024 09:15:00 AM, [address] [place] [address], [address] [place] [address], [phone], Provider Name:Jordan Cyr ier, 05/21/2025 01:45:00 PM, [address] [place] [address], [place] [address], [place], [place], [phone], Provider Name:Jordan Eric Klarissa ier, 11/15/2025 07:15:00 AM, [address] [place] [address], [address], [phone], Provider Name:Jordan Cyr ier, 11/22/2025 10:30:00 AM, [address] [place] [address], [place] [address], [place], [place], [phone], Progress Notes * Anthony GOODMAN CDOB:1939 (84 yo M)Acc No.[id number]:11/17/2024 Patient: Salena Anthony BRICENO Provider: Emery Gabriel MD :1940 A ge:84 Y S ex:Male Date:11/17/2024 Address: [place] Subjective: * Chief Complaints: * C OMP [...] spouse. Marital status: . 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 * Medications: T akingFreeStyle [...] as needed Inhalation every 4 hrs Nystatin 505984 UNIT/GM Cream 1 application Externally Twice a [...] needed Inhalation every 4 hrs Taking Nystatin 206992 UNIT/GM Cream 1 application Externally Twice a [...] mg/dL Urine Blood Negative Negative - Specific [place] - Urine 1.010 1.005-1.025 - Urine Protein [...] MD Date: 0 11/17/2024 Generated for Gautam oh/Isaac/Editting on: 0 12/03/2024 [...] exam intact SKIN: warm and dry, no onah picious lesions EXTREMITIES: no clubbing, cyanosi s, [...]
--- OUTSIDE RECORDS SUMMARY | 2024-11-24 03:30 | XMS_ITS ---
Author Organization Jordan Gabriel MD Address [address] [place] [address] [phone] Care Team Providers Care Sharepoint Admin Name Role Phone Jordan Gabriel Primary Care Provider [phone] Results Component Value Reference Range Notes Blood Urea Nitrogen Reviewed date:11/24/2024 01:52:49 PM Interpretation: Performing Lab:[address] [phone] Notes/Report: Blood Urea Nitrogen 21 9-16 mg/dL Creatinine Reviewed date:11/24/2024 01:52:40 PM Interpretation: Performing Lab:[facility], [address] [place] [phone] Notes/Report: Creatinine 1.37 0.5-1.4 mg/dL Estimated Glomerular Filt Rate 50 Chronic Kidney Disease: Estimated GFR < 60 mL/min/1.73m2 Severe Kidney Disease: Estimated GFR < 15 mL/min/1.73m2 REASON FOR VISIT Bun and creatine Encounters Encounter Location Date Provider Diagnosis Jordan Gabriel MD [address] [place] [address] [phone] 11/24/2024 Jordan Gabriel Paroxysmal atrial fibrillation I48.0 Assessments Encounter Date Diagnosis (ICD Code) Assessment Notes Treatment Notes Treatment Clinical Notes Section Notes 11/24/2024 Paroxysmal atrial fibrillation (ICD-10 - I48.0) Plan Of Treatment Next Appt Details Provider Name:Jordan ward, 12/08/2024 09:15:00 AM, [address] [place] [address], [phone], Provider Name:Jordan ward, 05/21/2025 01:45:00 PM, [address] [place] [address], [address], [phone], Provider Name:Jordan ward, 11/15/2025 07:15:00 AM, [address] [place] [address], [phone], Provider Name:Jordan ward, 11/22/2025 10:30:00 AM, [address] [place] [address], [phone], Progress Notes * Anthony GOODMAN CDOB:1939 (84 yo M)Acc No.[id number]:11/24/2024 Progress Note Patient: Anthony GARCIA Provider: Emery Gabriel MD :1940 A ge:84 Y S ex:Male Date:11/24/2024 Address:[address] [place] [address] [facility] [facility] Subjective: * Chief Complaints: * 1 . [...] Date: 11/24/2024 Generated for Gautam oh/Isaac/Esequiel on: 12/03/2024 07:42 AM EDT
--- OUTSIDE RECORDS SUMMARY | 2024-11-24 06:15 | XMS_ITS ---
Author Organization Jordan Gabriel MD Address [address] [place] [phone] Care Team Providers Care Quarter Inspector Name Role Phone Jordan Gabriel Primary Care Provider [phone] REASON FOR VISIT HDF Immunizations Vaccine Route Administration Date Status Comme nts Influenza High Dose IM Intramuscular 11/24/2024 Administer ed Encounters Encounter Location Date Provider Diagnosis Jordan Gabriel MD [address] [place] [phone] 11/24/2024 Jordan Gabriel Encounter for administration of vaccine Z23 Assessments Encounter Date Diagnosis (ICD Code) Assessment Notes Treatment Notes Treatment Clinical Notes Section Notes 11/24/2024 Encounter for administration of vaccine (ICD-10 - Z23) Plan Of Treatment Next Appt Details Provider Name:Jordan Cyr ier, 12/08/2024 09:15:00 AM, [address], [address], [place], [phone], Provider Name:Jordan Cyr ier, 05/21/2025 01:45:00 PM, [address], [address], [place], [place], [phone], Provider Name:Jordan Cyr ier, 11/15/2025 07:15:00 AM, [address], [address], [place], [phone], Provider Name:Jordan Cyr ier, 11/22/2025 10:30:00 AM, [address] [place] [address], Suite [facility], [place], [place], [phone], Progress Notes * Anthony GOODMAN CDOB:1939 (84 yo M)Acc No.[id number]:11/24/2024 Progress Note Patient: Anthony GARCIA Provider: Emery Gabriel MD :1940 A ge:84 Y S ex:Male Date:11/24/2024 Address:[address] [place], [place] [address]j[facility] Subjective: * Chief Complaints: * 1 . [...] 0 11/24/2024 Generated for Gautam oh/Isaac/Editting on: 0 12/03/2024 07:43 AM EDT
--- OUTSIDE RECORDS SUMMARY | 2024-12-03 07:42 | XMS_ITS | Patient Health Record ---
Author Organization [facility] Address [address] [place] [address] Care Team Providers Care Party Chief Name Role Phone Nery DIAS, Jordan Primary Care Provider Patito Carpenter Unavailable [phone] Allergies No Known Allergies Results Component Value Reference Range Notes Glucose, Whole Blood Reviewed date:07/25/2024 10:07:32 PM Interpretation: Performing Lab:[facility], [address] [place] [phone] Notes/Report: Glucose, Whole Blood 101 60-115 mg/dL METER # : [id number] Reason For Referral No Information Medications Medication [...] Problem Status W/U Status Risk Notes Problem 897641757 Encounter for screening for malignant neoplasm of colon (Z12.11) Active confirmed Problem 635710945 History of adenomatous polyp of colon (Z86.010) Active confirmed Problem Screening for malignant neoplasm of rectum (238160168) Encounter for screening for malignant neoplasm of rectum (Z12.12) Active confirmed Problem Dysphagia (55587937) Dysphagia (R13.10) Active confirmed Problem Iron deficiency anemia (69957438) Iron deficiency anemia (D50.9) Active confirmed Problem Gastric polyp (45874826) Gastric polyp (K31.7) Active confirmed Problem History of polyp of colon (610647442) Hx of colonic polyps (Z86.010) Active confirmed Problem 004299303 Long-term (curre nt) use of anticoagulants (Z79.01) Active confirmed Problem 86617783 Iron deficiency anemia, unspecified iron deficiency anemia type (D50.9) Active confirmed Problem 674244071 History of esophageal stricture (Z87.19) Active confirmed Problem Esophageal reflux finding (257666112) Gastroesophageal reflux (K21.9) Active confirmed Problem Diverticulosis of sigmoid colon (230428128) Diverticulosis of sigmoid colon (K57.30) Active confirmed [...] Encounters Encounter Location Date Provider Diagnosis [facility] [address] [place], [place] [phone] 07/23/2024 Patito Andrews Esophageal stricture K22.2 and Hiatal hernia K44.9 [facility] [address] [place] [address] 07/01/2024 Patito Andrews Dysphagia R13.10 ; History of esophageal stricture Z87.19 and Gastroesophageal reflux K21.9 [facility] [address] [place] [address] 06/01/2024 Patito Andrews [facility] [address] [place] [address] 07/23/2024 Patito Andrews Assessments Encounter Date Diagnosis [...] OF [place] [address] [place] [address] [id number] KENYPATITO AYERS Self - patient is the insured [employer] ATT[employer] CLAIMS [address] [place] [address] [id number] KENYPATITO Mccall Self - patient is the insured Medical (General) History Medical History History ICD Code Larger tubular adenoma with dysplasia re moved in 11/2008 from [facility] Colonoscopy 07-06-2009--small tubular cristina nomas Hyperlipidemia EGD in 11/2008 with a small HH and gastri tis-neg. H. pylori COPD/pneumonia Denies OR,CVA,renal disease HTN Asymptomatic gallstones-this had been reviewed [...]
--- OUTSIDE RECORDS SUMMARY | 2024-12-03 07:43 | XMS_ITS | Patient Health Record ---
Author Organization Jordan Gabriel MD Address [address] [place] [phone] Care Team Providers Care Inpatient Coder Name Role Phone Nery Jordan Primary Care Provider Allergies No Known Allergies Results Component Value Reference Range Notes Potassium Reviewed date:12/16/2023 12:34:18 PM Interpretation: Performing Lab:[facility], [address] [place] [phone] Notes/Report: Potassium 4.6 3.3-5.1 mmol/L Liver Panel Reviewed date:05/12/2024 04:52:54 PM Interpretation: Performing Lab:[address] [address] Notes/Report: Bilirubin Total 0.5 0.0-1.0 mg/dL Bilirubin Direct 0.2 0.0-0.5 mg/dL Aspartate Amino Transferase 28 5-37 U/L Alanine Aminotransferase 18 0-40 U/L Total Protein 7.1 6.5-8.0 g/dL Albumin Level 4.0 3.5-5.0 g/dL Alkaline Phosphatase 72 39-117 U/L Glucose Fasting Reviewed date:05/12/2024 04:53:04 PM Interpretation: Performing Lab:[address] [address] Notes/Report: Glucose Fasting 95 60-99 mg/dL Lipid Panel with Reflex Reviewed date:05/12/2024 04:53:13 PM Interpretation: Performing Lab:[address] [address] Notes/Report: Triglycerides 71 <150 mg/dL Desirable Triglyceride: [...] Reviewed date:05/12/2024 12:07:37 PM Interpretation: Performing Lab:[address] [address] Notes/Report: Hemoglobin A1c % 6.0 <6.0 % [...] average glucose, using the formula of the G3S-Hnjhbjm Average Glucose study (ADAG), Diabetes Care, Vol.31,#8, Oct. 2007 Potassium Reviewed date:10/09/2024 12:34:47 PM Interpretation: Performing Lab:[facility], [address] [place] [address] Notes/Report: Potassium 5.0 3.3-5.1 mmol/L Comprehensive [place]. Panel Fa (Not yet reviewed by provider) Interpretation:12-08-2024 Performing Lab:[facility], [address] [place] [address] Notes/Report: Sodium 136 135-145 mmol/L Potassium 4.7 [...] ff Reviewed date:11/10/2024 04:43:39 PM Interpretation: Performing Lab:[facility], [address] [place] [address] Notes/Report: White Blood Count 14.2 4.8-10.8 X10*3/uL [...] Reviewed date:11/10/2024 12:58:08 PM Interpretation: Performing Lab:[address] [address] Notes/Report: Iron 49 45-160 mcg/dL Total Iron Binding Capacity 282 228-428 mcg/dL Percent Iron Saturation 17 15-50 % Unsaturated Iron Binding 233 Lipid Panel Reviewed date:11/10/2024 12:57:18 PM Interpretation: Performing Lab:[address] [address] Notes/Report: Triglycerides 81 <150 mg/dL Desirable Triglyceride: [...] Reviewed date:11/10/2024 01:00:52 PM Interpretation: Performing Lab:[address] [address] Notes/Report: PSA,Total (Free>4and<10) 2.37 0.00-4.00 ng/mL A [...] Reviewed date:11/10/2024 04:33:57 PM Interpretation: Performing Lab:[address] [address] Notes/Report: Creatinine Urine 44.71 Microalbumin Urine 9.0 Microalbum/Creatinine Ratio Ur 20.1 <30 ug/mg cr Albumin/Creatinine Ratio Reference Ranges: Normal: < 30 ug/mg creatinine Microalbuminuria: 30 - 300 ug/mg creatinine Clinical Albuminuria: > 300 ug/mg creatinine Hemoglobin A1c Reviewed date:11/10/2024 12:57:28 PM Interpretation: Performing Lab:[address] [address] Notes/Report: Hemoglobin A1c % 6.5 <6.0 % [...] average glucose, using the formula of the H4H-Tmabqaf Average Glucose study (ADAG), Diabetes Care, Vol.31,#8, Oct. 2007 UA ClnCatch+Micro w/rflx Cul t Reviewed date:11/11/2024 12:30:51 PM Interpretation: Performing Lab:[facility], [address] [place] [address] Notes/Report: Urine, Clean Catch Color Urine Yellow Appearance Urine Clear PH 5.5 5.0-9.0 Glucose Urine UA Negative Negative mg/dL Urine Blood Negative Negative Specific Molina - Urine 1.010 1.005-1.025 Urine Protein Negative Neg-Trace mg/dL Urine Ketones Negative Negative mg/dL Nitrite Urine Negative Negative Leukocyte Esterase Urine Trace Negative RBC Urine 0-2 0-2 /HPF WBC Urine 0-5 0-5 /HPF Squamous Epithelial Cell Urine 0-2 0-2 /HPF Bacteria Urine None Seen None Seen Hyaline Casts Urine 0-2 0-2 /LPF Blood Urea Nitrogen Reviewed date:11/24/2024 01:52:49 PM Interpretation: Performing Lab:[facility], [address] [place] [address] Notes/Report: Blood Urea Nitrogen 21 9-16 mg/dL Creatinine Reviewed date:11/24/2024 01:52:40 PM Interpretation: Performing Lab:[facility], [address] [place] [address] Notes/Report: Creatinine 1.37 0.5-1.4 mg/dL Estimated Glomerular Filt Rate 50 Chronic Kidney Disease: Estimated GFR < 60 mL/min/1.73m2 Severe Kidney Disease: Estimated GFR < 15 mL/min/1.73m2 XR foot RT 2V Reviewed date:11/17/2024 04:42:26 PM Interpretation: Performing Lab: Notes/Report: [address] [place] [address] XRay Report Signed Patient: Anthony Goodman Sr MR#: [id number] : 1940 Acct:[id number] Age/Sex: 84 / M ADM Date: 11/17/24 Loc: HO.XRAY Attending Dr: Jordan Gabriel MD Ordering Physician: Jordan Gabriel MD Date of Service: 11/17/24 Procedure(s): XR foot RT 2V Accession Number(s): [id number] cc: Jordan Gabriel MD EXAMINATION: XR FOOT [...] 11/17/24 1137 DD/ 1115 TD/TT: 11/17/24 1123 Quilt Sewer: [address] [address] XRay Report Signed Patient: Anthony Goodman Sr MR#: [id number] : 1940 Acct:[id number] Age/Sex: 84 / M ADM Date: 11/17/24 Loc: HO.XRAY Attending Dr: Jordan Gabriel MD Ordering Physician: Jordan Gabriel MD Date of Service: 11/17/24 Procedure(s): XR fernanda t RT 2V Accession Number(s): [id number] cc: Jordan Gabriel MD EXAMINATION: XR FOOT [...] 11/17/24 1137 DD/ 1115 TD/TT: 11/17/24 1123 Quilt Sewer: Complete Blood Count no Diff Reviewed date:02/04/2024 01:50:25 PM Interpretation: Performing Lab:[facility], [address] [place] [address] Notes/Report: White Blood Count 7.2 4.8-10.8 X10*3/uL [...] Panel Reviewed date:02/04/2024 01:50:04 PM Interpretation: Performing Lab:[facility], [address] [place] [address] Notes/Report: Sodium 138 135-145 mmol/L Potassium 4.9 [...] Ferritin Reviewed date:02/04/2024 12:53:47 PM Interpretation: Performing Lab:[facility], [address] [place] [phone] Notes/Report: Ferritin 21 20-250 ng/mL Lactate Dehydrogenase Reviewed date:02/04/2024 12:50:52 PM Interpretation: Performing Lab:[facility], [address] [place] [phone] Notes/Report: Lactate Dehydrogenase 155 118-273 U/L Complete Blood Count Auto Di ff Reviewed date:04/07/2024 05:05:38 PM Interpretation: Performing Lab:[facility], [address] [place] [address] Notes/Report: White Blood Count 7.3 4.8-10.8 X10*3/uL [...] Ferritin Reviewed date:04/07/2024 04:41:39 PM Interpretation: Performing Lab:[facility], [address] [place] [phone] Notes/Report: Ferritin 30 20-250 ng/mL Lactate Dehydrogenase Reviewed date:04/07/2024 05:05:11 PM Interpretation: Performing Lab:[address] [address] Notes/Report: Lactate Dehydrogenase 165 118-273 U/L Aimee Danielle Reviewed date:05/12/2024 12:08:08 PM Interpretation: Performing Lab:[address] [address] Notes/Report: Aimee Danielle See Note Specimen held untested for 24 hours; Call to request Chemistry testing. CT chest wo con Reviewed date:05/14/2024 08:55:12 AM Interpretation: Performing Lab: Notes/Report: [address] [address] [address] Scan Report Signed Patient: Anthony Goodman Sr MR#: [id number] : 1940 Acct:[id number] Age/Sex: 84 / M ADM Date: 05/13/24 Loc: HO.CT Attending Dr: Jannet Evans NP Ordering Physician: JANNET EVANS NP Date of Service: 05/13/24 Procedure(s): CT chest wo IV con Accession Number(s): [id number] cc: JANNET EVANS NP; Jordan Gabriel MD Report Number: [id number]: Total DLP = 168.00 mGy-cm EXAMINATION: CT [...] by: Oseas Wallace MD 05/13/2024 11:42 AM [facility] Dictated By: Oseas Wallace MD Signed By: <Electronically signed by Oseas Wallace MD in OV> 05/13/24 1142 DD/ 1109 TD/TT: 05/13/24 1119 Quilt Sewer: [place] [address] CT Scan Report Signed Patient: Anthony Goodman MR#: [id number] : 1940 Acct:[id number] Age/Sex: 84 / M ADM Date: 05/13/24 Loc: HO.CT Attending Dr: Jannet Evans NP Ordering Physician: JANNET EVANS NP Date of Service: 05/13/24 Procedure(s): CT [facility] wo IV con Accession Number(s): [id number] cc: JANNET EVANS NP ; Jordan Gabriel MD Report Number: [id number]: Total DLP = 168.00 mGy-cm EXAMINATION: CT [...] by: Oseas Wallace MD 05/13/2024 11:42 AM [facility] Dictated By: Oseas Wallace MD Signed By: <Electronically signed by Oseas Wallace MD in OV> 05/13/24 1142 DD/ 1109 TD/TT: 05/13/24 1119 Quilt Sewer: Complete Blood Count no Diff Reviewed date:07/07/2024 11:32:23 AM Interpretation: Performing Lab:[facility], [address] [place] [address] Notes/Report: White Blood Count 6.7 4.8-10.8 X10*3/uL [...] Panel Reviewed date:07/07/2024 11:32:43 AM Interpretation: Performing Lab:[facility], [address] [place] [phone] Notes/Report: Sodium 138 135-145 mmol/L Potassium 4.6 [...] Ferritin Reviewed date:07/07/2024 11:31:21 AM Interpretation: Performing Lab:[facility], [address] [place] [address] Notes/Report: Ferritin 45 20-250 ng/mL SARS-CoV2/FLU/RSV Reviewed date:07/13/2024 04:20:38 PM Interpretation: Performing Lab:[address] [address] Notes/Report: Influenza A PCR NEGATIVE Negative Influenza [...] by authorized laboratories. Testing performed on the [email or web address] GeneXpert utilizing real-time RT-PCR. All SARS CoV2 and positive influenza A/B results are reported to [facility]. XR chest 2V Reviewed date:07/13/2024 04:21:30 PM Interpretation: Performing Lab: Notes/Report: [facility] [address] [place] [address] XRay Report Signed Patient: Anthony Goodman Sr MR#: [id number] : 1940 Acct:[id number] Age/Sex: 84 / M ADM Date: 07/11/24 Loc: VIRIDIANA Attending Dr: Awilda ARTIS Ordering Physician: Awilda Lozoya Date of Service: 07/11/24 Procedure(s): XR chest 2V Accession Number(s): [id number] cc: Jordan Gabriel MD; Awilda Lozoya CLINICAL [...] 07/11/24 1036 DD/ 1035 TD/TT: 07/11/24 1035 Quilt Sewer: [address] [place] [address] XRay Report Signed Patient: Anthony Goodman Sr MR#: [id number] : 1940 Acct:[id number] Age/Sex: 84 / M ADM Date: 07/11/24 Loc: RAMONAX Attending Dr: Geoffrey ARTIS Ordering Physician: Awilda Lozoya Date of Service: 07/11/24 Procedure(s): XR [facility] 2V Accession Number(s): [id number] cc: Jordan Gabriel MD; Awilda Lozoya CLINICAL [...] 07/11/24 1036 DD/ 1035 TD/TT: 07/11/24 1035 Quilt Sewer: Glucose, Whole Blood Reviewed date:07/23/2024 02:25:52 PM Interpretation: Performing Lab:[facility], [address] [place] [address] Notes/Report: Glucose, Whole Blood 101 60-115 mg/dL METER # : [id number] Complete Blood Count Auto Di ff Reviewed date:10/06/2024 05:13:16 PM Interpretation: Performing Lab:[facility], [address] [place] [address] Notes/Report: White Blood Count 7.4 4.8-10.8 X10*3/uL [...] Panel Reviewed date:10/06/2024 03:35:55 PM Interpretation: Performing Lab:[address] [address] Notes/Report: Sodium 142 135-145 mmol/L Potassium 5.4 [...] Ferritin Reviewed date:10/06/2024 12:19:56 PM Interpretation: Performing Lab:[address], [place] [address] Notes/Report: Ferritin 28 20-250 ng/mL Haptoglobin Reviewed date:10/06/2024 12:19:09 PM Interpretation: Performing Lab:[facility], [address] [place] [address] Notes/Report: Haptoglobin 200 40-268 mg/dL US venous duplex LE LT Reviewed date:11/02/2024 11:56:32 AM Interpretation: Performing Lab: Notes/Report: [address] [address] Ultrasound Report Signed Patient: Anthony Goodman MR#: [id number] : 1940 Acct:[id number] Age/Sex: 84 / M ADM Date: 11/02/24 Loc: .US Attending Dr: Jordan Gabriel MD Ordering Physician: Jordan Gabriel MD Date of Service: 11/02/24 Procedure(s): US venous duplex LE LT Accession Number(s): [id number] cc: Jordan Gabriel MD EXAMINATION: US LOWER [...] 11/02/24 1128 DD/ 1106 TD/TT: 11/02/24 1114 Quilt Sewer: [place] [address] Ultrasound Report Signed Patient: Anthony Goodman Sr MR#: [id number] : 1940 Acct:[id number] Age/Sex: 84 / M ADM Date: 11/02/24 Loc: . Attending Dr: Jordan Gabriel MD Ordering Physician: Jordan Gabriel MD Date of Service: 11/02/24 Procedure(s): US christopher ous duplex LE LT Accession Number(s): [id number] cc: Jordan Gabriel MD EXAMINATION: US LOWE [...] 11/02/24 1128 DD/ 1106 TD/TT: 11/02/24 1114 Quilt Sewer: Reason For Referral Reason please eval and mynor t Diagnosis 1 Esophageal dysfuncti on (K22.4) Referral Organization Jordan Gabriel MD Referring Provider First Name Jordan Referring Provider Last Name Nery Referring Provider Speciality Internal edicine Referred Provider Anthony Curry Referred Provider Specialty Gastroentero logy General Notes Narda Elizabeth 0 05/22/2024 09:43:41 AM >info faxed, Narda Elizabeth 05/28/2024 02:48:10 PM >referral info mailed, Amelie Ramirez Jessica 07/20/2024 10:03:45 AM >OFFICE NOTE RECD Referral [...] Last Name Nery Referring Provider Speciality Internal edicine Referred Provider Darryl Padilla Referred Provider Specialty Cardiovascul ar Disease Referral Priority Routine Medications Medication SIG (Take, Route, Frequency, Duration) Notes Start Date End Date Status Lisinopril 20 MG TAKE 1 TABLET BY JANETH TH EVERY DAY Active metFORMIN HCl 500 MG TAKE 1 TABLET BY MO UTH TWICE A DAY WITH MEALS Active Omeprazole 20 MG 1 capsule Orally Onc e a day Active Benadryl Allergy 25 MG 1 tablet as neede d Orally every 8 hrs Not-Taking Albuterol Sulfate HFA 108 (90 Base) MCG/ACT 1 puff as needed Inhalation every 4 hrs 04/13/2022 Active Xarelto 20 MG 1 tablet with food Orally Once a day Active FreeStyle Lite Test 0 as directed In Vit ro DX: E 11.9 use tot test blood sugar once a day for 30 days 01/17/2016 Active Ventolin HFA 108 (90 Base) MCG/ACT 2 puffs as needed Inhalation every 4 hrs Not-Takin g Ferrous Sulfate 325 (65 Fe) MG 1 tablet Orally BID Active Symbicort 160-4.5 MCG/ACT 2 puffs Inhala tion Twice a day for 30 days 11/14/2017 Not-Taki ng Atorvastatin Calcium 80 MG 1 tablet Orally Once a day Active FreeStyle Lite 0 as directed invitro DX: E 11.9 once a day for 30 days 01/17/2016 Active predniSONE 10 MG 1 tablet with food o r milk Orally 4 tabs for 3 days,3tabs for 3 days, 2 tabs for 3 days, and 1 tab for 3 days for 14 days 07/24/2024 Not-Taking Metoprolol Succinate ER 25 MG 1 tablet Orally Once a day for 30 days 11/17/2024 Active Nystatin 830841 UNIT/GM 1 application Externally Twice a day for 14 days 04/28/2019 Active Immunizations Vaccine Route Administration Date Status Comme nts Flu Vaccine Unknown 01/10/2012 Administered given at [facility] PPSV23 (Pnemovax) Unknown 01/10/2012 Administered given at [facility] Flu Vaccine Unknown 01/07/2014 Administered Flu Vaccine Unknown 12/31/2013 Administered received at [facility] Prevnar 13 IM Intramuscular 08/20/2014 Administered Flu Vaccine IM Intramuscular 12/22/2014 Administered pt re cieved high dose flu vaccine at [facility] in [place], Fluarix Quadrivalent Unknown 12/21/2015 Administered [facility] Unknown 01/26/2015 Administered [facility] Fluarix Quadrivalent IM Intramuscular 12/06/2016 Administalexis red PPSV23 (Pnemovax) IM Intramuscular 04/15/2017 Administered Influenza High Dose Unknown 12/17/2017 Administered [facility] Fluarix Quadrivalent IM Intramuscular 12/19/2018 Adminvidya pearl pt was given the vaccine at [facility] in [place]. 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) Active confirmed Problem 72681166 Essential hypert ension (I10) Active confirmed Problem 176124110 Low HDL (under 4 0) (E78.6) Active confirmed Problem 306621784 Lung nodule (R91.1) Active confirmed Problem 655004852 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) Active confirmed Problem Chronic obstructive pulmonary disease with acute lower respiratory infection (376332362) COPD (chronic obstructive pulmonary disease) with acute bronchitis (J44.0) Active confirmed Problem 24487426 Iron deficiency anemia, unspecified iron deficiency anemia type (D50.9) Active confirmed Problem Claudication (40657021) Claudication (I73.9) Active confirmed Problem 622016869 Adenoma (D36.9) Active confirmed Problem 4346154288744295 Acute idiopathi c gout involving toe of left foot (M10.072) Active confirmed Problem 68939515 Lymphadenopathy, mediastinal (R59.0) Active confirmed Problem 354067872 Rising PSA level (R97.20) Active confirmed Problem 885596425 History of calcu leonard of gallbladder (Z87.19) Active confirmed Problem 374837404 Pure hypercholesterolemia (E78.00) Active confirmed Problem Gout (84110307) Acute gout of le ft foot, unspecified cause (M10.9) Active confirmed Problem 65867533 Hip arthritis (M16.10) Active confirme d Problem 355044866 Adenocarcinoma o f lung, 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) Active confirmed Problem 482244148 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 Problem 632767070 Esophageal dysfu nction (K22.4) Active confirmed Problem 575326696 Lower esophageal ring (Schatzki) (K22.2) Active confirmed Vital Signs Heart Rate 110 /min 11/17/2024 Blood pressure diastolic 50 mm Hg 11/17/2024 Height 71 in 11/17/2024 Blood pressure systolic 102 mm Hg 11/17/2024 Weight 201 lbs 11/17/2024 BMI 28.03 kg/m2 11/17/2024 Encounters Encounter Location Date Provider Diagnosis Jordan Gabriel MD [address] [place] [id number] 12/09/2023 Jordan Gabriel Encounter for immuni zation Z23 Jordan Gabriel MD [address] [place] [id number] 12/16/2023 Jordan Gabriel Chronic hyperkalemia E87.5 Jordan Gabriel MD [address] [place] [id number] 05/12/2024 Jordan Gabriel Type 2 diabetes mina itus without complications E11.9 and Pure hypercholesterolemia E78.00 Jordan Gabriel MD [address] [place] [id number] 10/09/2024 Jordan Gabriel Hyperkalemia E87.5 Jordan Gabriel MD [address] [place] [id number] 11/10/2024 Jordan Gabriel Type 2 diabetes mina itus without complications E11.9 ; Pure hypercholesterolemia E78.00 ; Rising PSA level R97.20 ; Iron deficiency anemia, unspecified iron deficiency anemia type D50.9 and Essential hypertension I10 Jordan Gabriel MD [address] [place] [id number] 11/24/2024 Jordan Gabriel Paroxysmal atrial fibrillation I48.0 Jordan Gabriel MD [address] [place] [id number] 11/24/2024 Jordan Gabriel Encounter for administration of vaccine Z23 Jordan Gabriel MD [address] [place] [id number] 05/19/2024 Jordan Gabriel Encounter for genera l adult medical examination with abnormal findings Z00.01 ; Esophageal dysfunction K22.4 ; Pure hypercholesterolemia E78.00 and Type 2 diabetes mellitus without complications E11.9 Jordan Gabriel MD [address] [place] [id number] 07/24/2024 Jordan Gabriel Gout attack M10.9 Jordan Gabriel MD [address] [place] [address] [id number] 11/02/2024 Jordan Gabriel Gout attack M10.9 an d Leg edema R60.0 Jordan Gabriel MD [address] [place] [address] [id number] 11/09/2024 Jordan Gabriel Gout attack M10.9 an d Leg edema R60.0 Jordan Gabriel MD [address] [place] [address] [address] [place] [address] [id number] 11/17/2024 Jordan Gabriel Foot pain, right M79 .671 ; Paroxysmal atrial fibrillation I48.0 ; Elevated BUN R79.9 ; Type 2 diabetes mellitus without complications E11.9 ; Pure hypercholesterolemia E78.00 ; Essential hypertension I10 ; Iron deficiency anemia, unspecified iron deficiency anemia type D50.9 and COPD (chronic obstructive pulmonary disease) with acute bronchitis J44.0 Jordan Gabriel MD [address] [place] [address] [id number] 12/10/2023 Jordan Gabriel 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 Jordan Gabriel MD [address] [place] [address] [id number] 07/17/2024 Jordan Gabriel MD [address] [place] [id number] 09/08/2024 Jordan Gabriel Assessments Encounter Date Diagnosis (ICD Code) Assessment Notes Treatment Notes Treatment Clinical Notes Section Notes 12/09/2023 Encounter for immunization (ICD-10 - Z23) 12/16/2023 Chronic hyperkalemia (ICD-10 - E87.5) 05/12/2024 Type 2 diabetes mellitus without complications (ICD-10 - E11.9) 10/09/2024 Hyperkalemia (ICD-10 - E87.5) 11/10/2024 Type 2 diabetes mellitus without complications (ICD-10 - E11.9) 11/24/2024 Paroxysmal atrial fibrillation (ICD-10 - I48.0) 11/24/2024 Encounter for administration of vaccine (ICD-10 - Z23) 05/19/2024 Encounter for genera l adult medical [...] being done today 11-02-2024 at 11am at [facility] , pending diagnostic testing 11/09/2024 Gout attack (ICD-10 - M10.9) has resolved, patient verbalized understanding to stop medication 11/17/2024 Foot pain, right (ICD-10 - M79.671) order given to patient 11/17/2024 Paroxysmal atrial fibrillation (ICD-10 - I48.0) getting ecg and back to dr padilla/salena ecg with regular rythm but is rapid afib. , patient verbalized understandngof medication and directions for use 12/10/2023 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) 05/12/2024 Pure hypercholesterolemia (ICD-10 - E78.00) 11/10/2024 Pure hypercholesterolemia (ICD-10 - E78.00) 05/19/2024 Pure hypercholesterolemia (ICD-10 - E78.00) has good numbers 11/09/2024 Leg edema (ICD-10 - R60.0) started to go away with the prednisone, has resolved 11/17/2024 Elevated BUN (ICD-10 - R79.9) probably from the lasix. which has been stopped , pending labs 11/10/2024 Rising PSA level (ICD-10 - R97.20) 05/19/2024 Type 2 diabetes mellitus without complications (ICD-10 - E11.9) 11/17/2024 Type 2 diabetes mellitus without complications (ICD-10 - E11.9) stable, will cntonue current regiment 11/10/2024 Iron deficiency anem ia, unspecified iron deficiency anemia type (ICD-10 - D50.9) 11/17/2024 Pure hypercholesterolemia (ICD-10 - E78.00) stable, will continue current regiment 11/10/2024 Essential hypertensi on (ICD-10 - I10) 11/17/2024 Essential hypertensi on (ICD-10 - I10) doing well, will contnue current regiment and will continue to monitor 11/17/2024 Iron deficiency anem ia, unspecified iron deficiency anemia type (ICD-10 - D50.9) stable, will continue current regiment and will continue to monitor 11/17/2024 COPD (chronic obstructive pulmonary disease) with acute bronchitis (ICD-10 - J44.0) stable, will continue current regiment Plan Of Treatment Pending Test Test Name Order Date Electrocardiogram (EKG) 11/17/2024 Electrocardiogram (EKG) 07/21/2013 XR CHEST 2 VIEW PA & LAT 11/13/2022 XR GI SERIES 07/19/2023 US LEG LT VENOUS DOPPLER 11/02/2024 PFT 08/20/2014 Comprehensive [place]. Panel Fast CT chest w con 10/24/2023 US venous duplex LE LT 08/23/2020 CBC (INCLUDES DIFF/PLT) 08/30/2020 BUN 08/30/2020 CREATININE 08/30/2020 Next Appt Details Provider Name:Jordan ward, 12/08/2024 09:15:00 AM, [address] [place] [address], [address], [phone], Provider Name:Jordan ward, 05/21/2025 01:45:00 PM, [address] [place] [address], [phone], Provider Name:Jordan ward, 11/15/2025 07:15:00 AM, [address] [place] [address], [address], [phone], Provider Name:Jordan ward, 11/22/2025 10:30:00 AM, [address] [place] [address], [address], [phone], Insurance Providers Payer Name Payer Address Payer Phone Subscriber Number Group Number Insured Name Patient Relationship to Insured Coverage Start Date Coverage End Date [employer] [address] [place] [address] [id number] Anthony Goodman Self - patient is the insured [employer] [address] [place], [place] [phone] [id number] Anthony Goodman Self - patient is [...]
== END ==
LOC: HO.CARD 07:37
PROVIDERS: PCP Internal Medicine; Visit Provider Internal Medicine Cardiovascular Disease
DX: Z13.89 Encounter for screening for other disorder (principal)
CPT/HCPCS: 93225

== ENCOUNTER → 2024-12-18 07:41 | Outpatient (BNV) | payer MEDICARE, SELFPAY | PROVIDERS: PCP Internal Medicine; Visit Provider Internal Medicine Cardiovascular Disease | DX: I48.21 Permanent atrial fibrillation (principal); I49.3 Ventricular premature depolarization | CPT/HCPCS: 93227 ==

== ENCOUNTER → 2024-12-18 07:42 | Outpatient (REF) | payer MEDICARE, SELFPAY ==
--- OUTSIDE RECORDS SUMMARY | 2024-07-23 10:20 | XMS_ITS ---
Author Organization [facility] Address [address] [place] [address] Care Team Providers Care Rotary Surface Grinder Name Role Phone Jordan Gabriel MD Primary Care Provider Patito Carpenter [phone] REASON FOR VISIT gerd,hx esophageal stricture,dysphagia Encounters Encounter Location Date Provider Diagnosis [facility] Out[place] [address] [place] [address] [place] [phone] 07/23/2024 Patito Andrews Esophageal strictu re K22.2 and Hiatal hernia K44.9 Assessments Encounter Date Diagnosis (ICD Code) Assessment Notes Treatment Notes Treatment Clinical Notes Section Notes 07/23/2024 Esophageal stricture (ICD-10 - K22.2) 07/23/2024 Hiatal hernia (ICD-10 - K44.9) Plan Of Treatment No Information Progress Notes * PATITO BUSTILLO CDOB:1939 (84 yo M)Acc No.[id number]:07/23/2024 EGD/MAC Patient: Carlota BRICENO PATITO Buckley Provider: Jose Francisco Andrews MD :1940 A ge:84 Y S ex:Male Date:07/23/2024 Address: [id number] Pcp:Jordan Gabriel MD Subjective: * Chief Complaints: [...] 07/23/2024 Generated for Gautam oh/Isaac/Editting on: 0 12/18/2024 07:43 AM EDT
--- OUTSIDE RECORDS SUMMARY | 2024-11-10 04:00 | XMS_ITS ---
Author Organization Jordan Gabriel MD Address [address] [place] [phone] Care Team Providers Care Shake Out Worker Name Role Phone Jordan Gabriel Primary Care Provider Results Component Value Reference Range Notes Complete Blood Count Auto Di ff Reviewed date:11/10/2024 04:43:39 PM Interpretation: Performing Lab:[facility], [address] [place] [phone] Notes/Report: White Blood Count 14.2 4.8-10.8 X10*3/uL [...] NRBC Abs Auto 0.000 0.0-0.012 X10*3/uL Comprehensive [place]. Panel Fa st Reviewed date:12/08/2024 12:40:38 PM Interpretation:12-08-2024 Performing Lab:[facility], [address] [place] [phone] Notes/Report: Sodium 136 135-145 mmol/L Potassium 4.7 [...] PROFILE Reviewed date:11/10/2024 12:58:08 PM Interpretation: Performing Lab:[facility], [address] [place] [phone] Notes/Report: Iron 49 45-160 mcg/dL Total Iron Binding Capacity 282 228-428 mcg/d L Percent Iron Saturation 17 15-50 % Unsaturated Iron Binding 233 Lipid Panel Reviewed date:11/10/2024 12:57:18 PM Interpretation: Performing Lab:[facility], [address] [place] [phone] Notes/Report: Triglycerides 81 <150 mg/dL Desirable Triglyceride: [...] (Free>4and<10) Reviewed date:11/10/2024 01:00:52 PM Interpretation: Performing Lab:[facility], [address] [place] [phone] Notes/Report: PSA,Total (Free>4and<10) 2.37 0.00-4.00 ng/mL A [...] Random Reviewed date:11/10/2024 04:33:57 PM Interpretation: Performing Lab:[address] [phone] Notes/Report: Creatinine Urine 44.71 Microalbumin Urine 9.0 Microalbum/Creatinine Ratio Ur 20.1 <30 ug/mg cr Albumin/Creatinine Ratio Reference Ranges: Normal: < 30 ug/mg creatinine Microalbuminuria: 30 - 300 ug/mg creatinine Clinical Albuminuria: > 300 ug/mg creatinine Hemoglobin A1c Reviewed date:11/10/2024 12:57:28 PM Interpretation: Performing Lab:[address] [phone] Notes/Report: Hemoglobin A1c % 6.5 <6.0 % [...] average glucose, using the formula of the Z9D-Zeqaedt Average Glucose study (ADAG), Diabetes Care, Vol.31,#8, Oct. 2007 UA ClnCatch+Micro w/rflx Cul t Reviewed date:11/11/2024 12:30:51 PM Interpretation: Performing Lab:[facility], [address] [place] [phone] Notes/Report: Urine, Clean Catch Color Urine Yellow Appearance Urine Clear PH 5.5 5.0-9.0 Glucose Urine UA Negative Negative mg/dL Urine Blood Negative Negative Specific [place] - Urine 1.010 1.005-1.025 Urine Protein Negative [...] Location Date Provider Diagnosis Jordan Gabriel MD [address] [place] [phone] 11/10/2024 Jordan Gabriel Type 2 diabetes mina [...] Treatment Next Appt Details Provider Name:Jordan ward, 01/05/2025 01:45:00 PM, [address] [place] [address], [address], [phone], Provider Name:Jordan ward, 05/21/2025 01:45:00 PM, [address] [place] [address], [address], [phone], Provider Name:Jordan ward, 11/15/2025 07:15:00 AM, [address] [place] [address], [phone], Provider Name:Jordan ward, 11/22/2025 10:30:00 AM, [address] [place] [address], [phone], Progress Notes * Anthony GOODMAN CDOB:1939 (84 yo M)Acc No.[id number]:11/10/2024 Progress Note Patient: Anthony GARCIA Provider: Emery Gabriel MD :1940 A ge:84 Y S ex:Male Date:11/10/2024 [id number] Subjective: * Chief Complaints: * 1 . [...] - 11/10/2024 08:00 AM) L AB: Comprehensive [place]. Panel Fast (Collection Date & Time - [...] - 11/10/2024 08:00 AM) L AB: Comprehensive [place]. Panel Fast (Collection Date & Time - [...] - 11/10/2024 08:00 AM) L AB: Comprehensive [place]. Panel Fast (Collection Date & Time - [...] - 11/10/2024 08:00 AM) L AB: Comprehensive [place]. Panel Fast (Collection Date & Time - [...] 0 11/10/2024 Generated for Gautam oh/Isaac/Editting on: 0 12/18/2024 07:44 AM EDT
--- OUTSIDE RECORDS SUMMARY | 2024-11-17 06:30 | XMS_ITS ---
Author Organization Jordan Gabriel MD Address [address] [place] [phone] Care Team Providers Care Operator Receptionist Name Role Phone Jordan Gabriel Primary Care Provider [phone] Allergies No Known Allergies Results Component Value Reference Range Notes XR foot RT 2V Reviewed date:11/17/2024 04:42:26 PM Interpretation: Performing Lab: Notes/Report: [address] [address] XRay Report Signed Patient: Anthony Goodman MR#: [id number] : 1940 Acct:[id number] Age/Sex: 84 / M ADM Date: 11/17/24 Loc: HO.XRAY Attending Dr: Jordan Gabriel MD Ordering Physician: Jordan Gabriel MD Date of Service: 11/17/24 Procedure(s): XR foot RT 2V Accession Number(s): [id number] cc: Jordan Gabriel MD EXAMINATION: XR FOOT [...] 11/17/24 1137 DD/ 1115 TD/TT: 11/17/24 1123 Electrotype Finisher: [place] [address] XRay Report Signed Patient: Angelia Goodman Sr MR#: [id number] : 1940 Acct:[id number] Age/Sex: 84 / M ADM Date: 11/17/24 Loc: HO.XRBRADEN Attending Dr: Jordan Gabriel MD Ordering Physician: Jordan Gabriel MD Date of Service: 11/17/24 Procedure(s): XR foot RT 2V Accession Number(s): [id number] cc: Jordan Gabriel MD EXAMINATION: XR FOOT [...] 11/17/24 1137 DD/ 1115 TD/TT: 11/17/24 1123 Electrotype Finisher: Reason For Referral Reason I48.0 Paroxysmal atr [...] Notes Start Date End Date Status Nystatin 533379 UNIT/GM 1 application Externally Twice a day [...] MG TAKE 1 TABLET BY MO [facility] TWICE A DAY WITH MEALS Active [...] Location Date Provider Diagnosis Jordan Gabriel MD [address] [place] [address] [place] [phone] 11/17/2024 Jordan Gabriel Foot pain, right M79 [...] Follow Up: 3 Weeks, Reason: Provider Name:Jordan ward, 01/05/2025 01:45:00 PM, [address] [place] [address], [address], [phone], Provider Name:Jordan ward, 05/21/2025 01:45:00 PM, [address] [place] [address], [address], [phone], Provider Name:Jordan ward, 11/15/2025 07:15:00 AM, [address] [place] [address], [address], [phone], Provider Name:Jordan nettlesr, 11/22/2025 10:30:00 AM, [address] [place] [address], [address], [phone], Progress Notes * Anthony GOODMAN CDOB:1939 (84 yo M)Acc No.[id number]:11/17/2024 Patient: Anthony GARCIA Ina Provider: Emery Gabriel MD :1940 A ge:84 Y S ex:Male Date:11/17/2024 Address: [place] Subjective: * Chief Complaints: * C OMP [...] spouse. Marital status: . 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 * Medications: T akingFreeStyle [...] as needed Inhalation every 4 hrs Nystatin 594956 UNIT/GM Cream 1 application Externally Twice a [...] needed Inhalation every 4 hrs Taking Nystatin 526591 UNIT/GM Cream 1 application Externally Twice a [...] mg/dL Urine Blood Negative Negative - Specific [place] - Urine 1.010 1.005-1.025 - Urine Protein [...] 11/17/2024 Generated for Gautam oh/Isaac/Editting on: 0 12/18/2024 07:43 AM EDT History and Physical Notes * [...]
--- OUTSIDE RECORDS SUMMARY | 2024-11-24 03:30 | XMS_ITS ---
Author Organization Jordan Gabriel MD Address [address] [place] [address] [phone] Care Team Providers Care Sleeper Cutter Name Role Phone Jordan Gabriel Primary Care Provider Results Component Value Reference Range Notes Blood Urea Nitrogen Reviewed date:11/24/2024 01:52:49 PM Interpretation: Performing Lab:[address] [phone] Notes/Report: Blood Urea Nitrogen 21 9-16 mg/dL Creatinine Reviewed date:11/24/2024 01:52:40 PM Interpretation: Performing Lab:[facility], [address] [place] [phone] Notes/Report: Creatinine 1.37 0.5-1.4 mg/dL Estimated Glomerular Filt Rate 50 Chronic Kidney Disease: Estimated GFR < 60 mL/min/1.73m2 Severe Kidney Disease: Estimated GFR < 15 mL/min/1.73m2 REASON FOR VISIT Bun and creatine Encounters Encounter Location Date Provider Diagnosis Jordan Gabriel MD [address] [place] [address] [phone] 11/24/2024 Jordan Gabriel Paroxysmal atrial fibrillation I48.0 Assessments Encounter Date Diagnosis (ICD Code) Assessment Notes Treatment Notes Treatment Clinical Notes Section Notes 11/24/2024 Paroxysmal atrial fibrillation (ICD-10 - I48.0) Plan Of Treatment Next Appt Details Provider Name:Jordan ward, 01/05/2025 01:45:00 PM, [address] [place] [address], [phone], Provider Name:Jordan ward, 05/21/2025 01:45:00 PM, [address] [place] [address], [address], [phone], Provider Name:Jordan ward, 11/15/2025 07:15:00 AM, [address] [place] [address], [phone], Provider Name:Jordan ward, 11/22/2025 10:30:00 AM, [address] [place] [address], [phone], Progress Notes * Anthony GOODMAN CDOB:1939 (84 yo M)Acc No.[id number]:11/24/2024 Progress Note Patient: Anthony GARCIA Provider: Emery Gabriel MD :1940 A ge:84 Y S ex:Male Date:11/24/2024 Address:[address] [place] [address] [facility] [facility] Subjective: * Chief Complaints: * 1 . [...] Pending * Provider: Emery Gabriel MD Date: 11/24/2024 Generated for Gautam oh/Isaac/Esequiel on: 12/18/2024 07:44 AM EDT
--- OUTSIDE RECORDS SUMMARY | 2024-11-24 06:15 | XMS_ITS ---
Author Organization Jordan Gabriel MD Address [address] [place] [phone] Care Team Providers Care Networking Technician Name Role Phone Jordan Gabriel Primary Care Provider REASON FOR VISIT HDF Immunizations Vaccine Route Administration Date Status Comme nts Influenza High Dose IM Intramuscular 11/24/2024 Administer ed Encounters Encounter Location Date Provider Diagnosis Jordan Gabriel MD [address] [place] [phone] 11/24/2024 Jordan Gabriel Encounter for administration of vaccine Z23 Assessments Encounter Date Diagnosis (ICD Code) Assessment Notes Treatment Notes Treatment Clinical Notes Section Notes 11/24/2024 Encounter for administration of vaccine (ICD-10 - Z23) Plan Of Treatment Next Appt Details Provider Name:Jordan Cyr ier, 01/05/2025 01:45:00 PM, [address], [address], [place], [phone], Provider Name:Jordan Cyr ier, 05/21/2025 01:45:00 PM, [address], [address], [place], [place], [phone], Provider Name:Jordan Cyr ier, 11/15/2025 07:15:00 AM, [address], [address], [place], [phone], Provider Name:Jordan Cyr ier, 11/22/2025 10:30:00 AM, [facility], Suite [facility], [place], [place], [phone], Progress Notes * Anthony GOODMAN CDOB:1939 (84 yo M)Acc No.[id number]:11/24/2024 Progress Note Patient: Anthony GARCIA Provider: Emery Gabriel MD :1940 A ge:84 Y S ex:Male Date:11/24/2024 [facility] [place] Subjective: * Chief Complaints: * 1 . [...] 11/24/2024 Generated for Gautam oh/Isaac/Editting on: 0 12/18/2024 07:44 AM EDT
--- OUTSIDE RECORDS SUMMARY | 2024-12-08 05:15 | XMS_ITS ---
Author Organization Jordan Gabriel MD Address [address] [place] [phone] Care Team Providers Care Catalytic Converter Operator Helper Name Role Phone Jordan Gabriel [...] food Orally Once a day Active Nystatin 175689 UNIT/GM 1 application Externally Twice a day [...] W/U Status Risk Notes Problem Atrial fibrillation (95953704) Atrial fibrillation (I48.91) Active confirmed Vital Signs Blood pressure systolic 142 mm Hg 12/09/19 25 Blood pressure diastolic 60 mm Hg 025 Height 71 in 12/08/2024 Weight 203 lbs 12/08/2024 BMI 28.31 kg/m2 12/08/2024 weight is up 2 pounds since 11-17-24 Encounters Encounter Location Date Provider Diagnosis Jordan Gabriel MD [address] [place], [place] [phone] 12/08/2024 Jordan Gabriel Panlobular emphysema J43.1 ; [...] Reason: Provider Name:Jordan ward, 01/05/2025 01:45:00 PM, [address] [place] [address], [address], [phone], Provider Name:Jordan ward, 05/21/2025 01:45:00 PM, [address] [place] [address], [phone], Provider Name:Jordan ward, 11/15/2025 07:15:00 AM, [address] [place] [address], [address], [phone], Provider Name:Jordan ward, 11/22/2025 10:30:00 AM, [address] [place] [address], [phone], Progress Notes * Anthony GOODMAN CDOB:1939 (84 yo M)Acc No.[id number]:12/08/2024 Patient: Anthony GARCIA Provider: Emery Gabriel MD :1940 A ge:84 Y S ex:Male Date:12/08/2024 Address:[id number] Subjective: * Chief Complaints: * 3 weeks [...] 1 capsule Orally Once a day Nystatin 950808 UNIT/GM Cream 1 application Externally Twice a [...] capsule Orally Once a day Taking Nystatin 947483 UNIT/GM Cream 1 application Externally Twice a [...] 0 12/08/2024 Generated for Gautam oh/Isaac/eTransmitting on: 12/18/2024 07:44 AM EDT History and Physical Notes * [...]
--- NOTE | 2024-12-18 07:41 | HM_ITS ---
Conclusion: 1. Patient was monitored for total period of 2 days 2. Baseline was atrial fibrillation with average heart of 93 beats per minute with borderline rate control 3. Frequent isolated PVCs noted with total burden of 1.4% with 1 3 beat kwaku which could represent aberrant conduction 4. No patient reported events 5. No significant pauses MTDD
--- OUTSIDE RECORDS SUMMARY | 2024-12-18 07:43 | XMS_ITS | Patient Health Record ---
Author Organization [facility] Address [address] [place] [address] Care Team Providers Care Pet Care Technician Name Role Phone Nery DIAS, Jordan Primary Care Provider Patito Carpenter Unavailable [phone] Allergies No Known Allergies Results Component Value Reference Range Notes Glucose, Whole Blood Reviewed date:07/25/2024 10:07:32 PM Interpretation: Performing Lab:[facility], [address] [place] [phone] Notes/Report: Glucose, Whole Blood 101 60-115 mg/dL METER # : [id number] Reason For Referral No Information Medications Medication [...] Problem Status W/U Status Risk Notes Problem 672069360 Encounter for screening for malignant neoplasm of colon (Z12.11) Active confirmed Problem 769681536 History of adenomatous polyp of colon (Z86.010) Active confirmed Problem Screening for malignant neoplasm of rectum (674504009) Encounter for screening for malignant neoplasm of rectum (Z12.12) Active confirmed Problem Dysphagia (11468859) Dysphagia (R13.10) Active confirmed Problem Iron deficiency anemia (32367249) Iron deficiency anemia (D50.9) Active confirmed Problem Gastric polyp (54812678) Gastric polyp (K31.7) Active confirmed Problem History of polyp of colon (572376901) Hx of colonic polyps (Z86.010) Active confirmed Problem 260548554 Long-term (curre nt) use of anticoagulants (Z79.01) Active confirmed Problem 68632274 Iron deficiency anemia, unspecified iron deficiency anemia type (D50.9) Active confirmed Problem 018603570 History of esophageal stricture (Z87.19) Active confirmed Problem Esophageal reflux finding (314860872) Gastroesophageal reflux (K21.9) Active confirmed Problem Diverticulosis of sigmoid colon (452366715) Diverticulosis of sigmoid colon (K57.30) Active confirmed [...] N/A Encounters Encounter Location Date Provider Diagnosis [facility] Outpatient [address] [place], [place] [phone] 07/23/2024 Patito Andrews Esophageal stricture K22.2 and Hiatal hernia K44.9 [facility] [address] [place] [address] 07/01/2024 Patito Andrews Dysphagia R13.10 ; History of esophageal stricture Z87.19 and Gastroesophageal reflux K21.9 [facility] [address] [place] [address] 06/01/2024 Patito Andrews [facility] [address] [place] [address] 07/23/2024 Patito Andrews Assessments Encounter Date Diagnosis [...] OF [place] [address] [place] [address] [id number] KENYPATITO AYERS Self - patient is the insured [employer] CLAIMS [address] [place] [address] [id number] KENYPATITO Mccall Self - patient is the insured Medical (General) History Medical History History ICD Code Larger tubular adenoma with dysplasia re moved in 11/2008 from [facility] Colonoscopy 07-06-2009--small tubular cristina nomas Hyperlipidemia EGD in 11/2008 with a small HH and gastri tis-neg. H. pylori COPD/pneumonia Denies PA,CVA,renal disease HTN Asymptomatic gallstones-this had been reviewed [...]
--- OUTSIDE RECORDS SUMMARY | 2024-12-18 07:44 | XMS_ITS | Patient Health Record ---
Author Organization Jordan Gabriel MD Address [address] [place] [phone] Care Team Providers Care Academic Program Specialist Name Role Phone Jordan Gabriel Primary Care Provider Allergies No Known Allergies Results Component Value Reference Range Notes Liver Panel Reviewed date:05/12/2024 04:52:54 PM Interpretation: Performing Lab:[facility], [address] [place] [address] Notes/Report: Bilirubin Total 0.5 0.0-1.0 mg/dL Bilirubin Direct 0.2 0.0-0.5 mg/dL Aspartate Amino Transferase 28 5-37 U/L Alanine Aminotransferase 18 0-40 U/L Total Protein 7.1 6.5-8.0 g/dL Albumin Level 4.0 3.5-5.0 g/dL Alkaline Phosphatase 72 39-117 U/L Glucose Fasting Reviewed date:05/12/2024 04:53:04 PM Interpretation: Performing Lab:[facility], [address] [place] [address] Notes/Report: Glucose Fasting 95 60-99 mg/dL Lipid Panel with Reflex Reviewed date:05/12/2024 04:53:13 PM Interpretation: Performing Lab:[facility], [address] [place] [address] Notes/Report: Triglycerides 71 <150 mg/dL Desirable Triglyceride: [...] A1c Reviewed date:05/12/2024 12:07:37 PM Interpretation: Performing Lab:[facility], [address] [place] [address] Notes/Report: Hemoglobin A1c % 6.0 <6.0 % [...] average glucose, using the formula of the C8R-Uvtyoxu Average Glucose study (ADAG), Diabetes Care, Vol.31,#8, 2007 Potassium Reviewed date:10/09/2024 12:34:47 PM Interpretation: Performing Lab:[facility], [address] [place] [address] Notes/Report: Potassium 5.0 3.3-5.1 mmol/L Complete Blood Count Auto Di ff Reviewed date:11/10/2024 04:43:39 PM Interpretation: Performing Lab:[facility], [address] [place] [address] Notes/Report: White Blood Count 14.2 4.8-10.8 X10*3/uL [...] NRBC Abs Auto 0.000 0.0-0.012 X10*3/uL Comprehensive [place]. Panel Fa st Reviewed date:12/08/2024 12:40:38 PM Interpretation:12-08-2024 Performing Lab:[facility], [address] [place] [address] Notes/Report: Sodium 136 135-145 mmol/L Potassium 4.7 [...] PROFILE Reviewed date:11/10/2024 12:58:08 PM Interpretation: Performing Lab:[facility], [address] [place] [address] Notes/Report: Iron 49 45-160 mcg/dL Total Iron Binding Capacity 282 228-428 mcg/dL Percent Iron Saturation 17 15-50 % Unsaturated Iron Binding 233 Lipid Panel Reviewed date:11/10/2024 12:57:18 PM Interpretation: Performing Lab:[facility], [address] [place] [address] Notes/Report: Triglycerides 81 <150 mg/dL Desirable Triglyceride: [...] (Free>4and<10) Reviewed date:11/10/2024 01:00:52 PM Interpretation: Performing Lab:[address] [address] Notes/Report: PSA,Total (Free>4and<10) 2.37 0.00-4.00 ng/mL A [...] Random Reviewed date:11/10/2024 04:33:57 PM Interpretation: Performing Lab:[address] [address] Notes/Report: Creatinine Urine 44.71 Microalbumin Urine 9.0 Microalbum/Creatinine Ratio Ur 20.1 <30 ug/mg cr Albumin/Creatinine Ratio Reference Ranges: Normal: < 30 ug/mg creatinine Microalbuminuria: 30 - 300 ug/mg creatinine Clinical Albuminuria: > 300 ug/mg creatinine Hemoglobin A1c Reviewed date:11/10/2024 12:57:28 PM Interpretation: Performing Lab:[address] [address] Notes/Report: Hemoglobin A1c % 6.5 <6.0 % [...] average glucose, using the formula of the X2Q-Wzbojkd Average Glucose study (ADAG), Diabetes Care, Vol.31,#8, Oct. 2007 UA ClnCatch+Micro w/rflx Cul t Reviewed date:11/11/2024 12:30:51 PM Interpretation: Performing Lab:[address] [address] Notes/Report: Urine, Clean Catch Color Urine Yellow Appearance Urine Clear PH 5.5 5.0-9.0 Glucose Urine UA Negative Negative mg/dL Urine Blood Negative Negative Specific [place] - Urine 1.010 1.005-1.025 Urine Protein Negative Neg-Trace mg/dL Urine Ketones Negative Negative mg/dL Nitrite Urine Negative Negative Leukocyte Esterase Urine Trace Negative RBC Urine 0-2 0-2 /HPF WBC Urine 0-5 0-5 /HPF Squamous Epithelial Cell Urine 0-2 0-2 /HPF Bacteria Urine None Seen None Seen Hyaline Casts Urine 0-2 0-2 /LPF Blood Urea Nitrogen Reviewed date:11/24/2024 01:52:49 PM Interpretation: Performing Lab:[facility], [address] [place] [address] Notes/Report: Blood Urea Nitrogen 21 9-16 mg/dL Creatinine Reviewed date:11/24/2024 01:52:40 PM Interpretation: Performing Lab:[address] [address] Notes/Report: Creatinine 1.37 0.5-1.4 mg/dL Estimated Glomerular Filt Rate 50 Chronic Kidney Disease: Estimated GFR < 60 mL/min/1.73m2 Severe Kidney Disease: Estimated GFR < 15 mL/min/1.73m2 XR foot RT 2V Reviewed date:11/17/2024 04:42:26 PM Interpretation: Performing Lab: Notes/Report: [address] [address] XRay Report Signed Patient: Anthony Goodman MR#: [id number] : 1940 Acct:[id number] Age/Sex: 84 / M ADM Date: 11/17/24 Loc: HO.XRAY Attending Dr: Jordan Gabriel MD Ordering Physician: Jordan Gabriel MD Date of Service: 11/17/24 Procedure(s): XR foot RT 2V Accession Number(s): [id number] cc: Jordan Gabriel MD EXAMINATION: XR FOOT [...] 11/17/24 1137 DD/ 1115 TD/TT: 11/17/24 1123 [employer] Engineer: [place] [address] XRay Report Signed Patient: Anthony Goodman MR#: [id number] : 1940 Acct:[id number] Age/Sex: 84 / M ADM Date: 11/17/24 Loc: HO.XRAY Attending Dr: Jordan Gabriel MD Ordering Physician: Jordan Gabriel MD Date of Service: 11/17/24 Procedure(s): XR fernanda t RT 2V Accession Number(s): [id number] cc: Jordan Gabriel MD EXAMINATION: XR FOOT [...] 11/17/24 1137 DD/ 1115 TD/TT: 11/17/24 1123 [employer] Engineer: Complete Blood Count no Diff Reviewed date:02/04/2024 01:50:25 PM Interpretation: Performing Lab:[facility], [address] [place] [address] Notes/Report: White Blood Count 7.2 4.8-10.8 X10*3/uL [...] Panel Reviewed date:02/04/2024 01:50:04 PM Interpretation: Performing Lab:[facility], [address] [place] [address] Notes/Report: Sodium 138 135-145 mmol/L Potassium 4.9 [...] Ferritin Reviewed date:02/04/2024 12:53:47 PM Interpretation: Performing Lab:[facility], [address] [place] [address] Notes/Report: Ferritin 21 20-250 ng/mL Lactate Dehydrogenase Reviewed date:02/04/2024 12:50:52 PM Interpretation: Performing Lab:[facility], [address] [place] [phone] Notes/Report: Lactate Dehydrogenase 155 118-273 U/L Complete Blood Count Auto Di ff Reviewed date:04/07/2024 05:05:38 PM Interpretation: Performing Lab:[facility], [address] [place] [address] Notes/Report: White Blood Count 7.3 4.8-10.8 X10*3/uL [...] Ferritin Reviewed date:04/07/2024 04:41:39 PM Interpretation: Performing Lab:[facility], [address] [place] [address] Notes/Report: Ferritin 30 20-250 ng/mL Lactate Dehydrogenase Reviewed date:04/07/2024 05:05:11 PM Interpretation: Performing Lab:[facility], [address] [place] [address] Notes/Report: Lactate Dehydrogenase 165 118-273 U/L Hold Gold Reviewed date:05/12/2024 12:08:08 PM Interpretation: Performing Lab:[facility], [address] [place] [address] Notes/Report: Hold Gold See Note Specimen held untested for 24 hours; Call to request Chemistry testing. CT chest wo con Reviewed date:05/14/2024 08:55:12 AM Interpretation: Performing Lab: Notes/Report: [address] [address] [address] Scan Report Signed Patient: Anthony Goodman MR#: [id number] : 1940 Acct:[id number] Age/Sex: 84 / M ADM Date: 05/13/24 Loc: HO.CT Attending Dr: Jannet Evans [employer] DESIGNER Ordering Physician: JANNET EVANS NP Date of Service: 05/13/24 Procedure(s): CT chest wo IV con Accession Number(s): [id number] cc: JANNET EVANS [employer] DESIGNER; Jordan Gabriel MD Report Number: [id number]: Total DLP = 168.00 mGy-cm EXAMINATION: CT [...] by: Oseas Wallace MD 05/13/2024 11:42 AM [facility] Dictated By: Oseas Wallace MD Signed By: <Electronically signed by Oseas Wallace MD in OV> 05/13/24 1142 DD/ 1109 TD/TT: 05/13/24 1119 [employer] Engineer: [place] [address] CT Scan Report Signed Patient: Anthony Goodman Sr MR#: [id number] : 1940 Acct:[id number] Age/Sex: 84 / M ADM Date: 05/13/24 Loc: HO.CT Attending Dr: Jannet Evans NP Ordering Physician: JANNET EVANS NP Date of Service: 05/13/24 Procedure(s): CT [facility] wo IV con Accession Number(s): [id number] cc: JANNET EVANS NP ; Jordan Gabriel MD Report Number: [id number]: Total DLP = 168.00 mGy-cm EXAMINATION: CT [...] by: Oseas Wallace MD 05/13/2024 11:42 AM [facility] Dictated By: Oseas Wallcae MD Signed By: <Electronically signed by Oseas Wallace MD in OV> 05/13/24 1142 DD/ 1109 TD/TT: 05/13/24 1119 [employer] Engineer: Complete Blood Count no Diff Reviewed date:07/07/2024 11:32:23 AM Interpretation: Performing Lab:[address] [address] Notes/Report: White Blood Count 6.7 4.8-10.8 X10*3/uL [...] Panel Reviewed date:07/07/2024 11:32:43 AM Interpretation: Performing Lab:[address] [address] Notes/Report: Sodium 138 135-145 mmol/L Potassium 4.6 [...] Ferritin Reviewed date:07/07/2024 11:31:21 AM Interpretation: Performing Lab:[address] [address] Notes/Report: Ferritin 45 20-250 ng/mL SARS-CoV2/FLU/RSV Reviewed date:07/13/2024 04:20:38 PM Interpretation: Performing Lab:[address] [address] Notes/Report: Influenza A PCR NEGATIVE Negative Influenza [...] by authorized laboratories. Testing performed on the [employer] GeneXpert utilizing real-time RT-PCR. All SARS CoV2 and positive influenza A/B results are reported to [facility]. XR chest 2V Reviewed date:07/13/2024 04:21:30 PM Interpretation: Performing Lab: Notes/Report: [facility] [address] [place] [address] XRay Report Signed Patient: Anthony Goodman Sr MR#: [id number] : 1940 Acct:[id number] Age/Sex: 84 / M ADM Date: 07/11/24 [facility] Att[facility] Dr: Awilda ARTIS Ordering Physician: Awilda Lozoya Date of Service: 07/11/24 Procedure(s): XR chest 2V Accession Number(s): [id number] cc: Jordan Gabriel MD; Awilda Lozoya CLINICAL [...] 07/11/24 1036 DD/ 1035 TD/TT: 07/11/24 1035 [employer] Engineer: [facility] [address] [place] [address] XRay Report Signed Patient: Anthony Goodman Sr MR#: [id number] : 1940 Acct:[id number] Age/Sex: 84 / M ADM Date: 07/11/24 [facility]: [facility] Attending Dr: Geoffrey ARTIS Ordering Physician: Awilda Lozoya Date of Service: 07/11/24 Procedure(s): XR [facility] 2V Accession Number(s): [id number] cc: Jordan Gabriel MD; Awilda Lozoya CLINICAL [...] 07/11/24 1036 DD/ 1035 TD/TT: 07/11/24 1035 [employer] Engineer: Glucose, Whole Blood Reviewed date:07/23/2024 02:25:52 PM Interpretation: Performing Lab:[facility], [address] [place] [address] Notes/Report: Glucose, Whole Blood 101 60-115 mg/dL METER # : [id number] Complete Blood Count Auto Di ff Reviewed date:10/06/2024 05:13:16 PM Interpretation: Performing Lab:[facility], [address] [place] [address] Notes/Report: White Blood Count 7.4 4.8-10.8 X10*3/uL [...] Panel Reviewed date:10/06/2024 03:35:55 PM Interpretation: Performing Lab:[facility], [address] [place] [address] Notes/Report: Sodium 142 135-145 mmol/L Potassium 5.4 [...] Ferritin Reviewed date:10/06/2024 12:19:56 PM Interpretation: Performing Lab:[facility], [address] [place] [address] Notes/Report: Ferritin 28 20-250 ng/mL Haptoglobin Reviewed date:10/06/2024 12:19:09 PM Interpretation: Performing Lab:[facility], [address] [place] [address] Notes/Report: Haptoglobin 200 40-268 mg/dL US venous duplex LE LT Reviewed date:11/02/2024 11:56:32 AM Interpretation: Performing Lab: Notes/Report: [address] [address] Ultrasound Report Signed Patient: Anthony Goodman Sr MR#: [id number] : 1940 Acct:[id number] Age/Sex: 84 / M ADM Date: 11/02/24 Loc: HO.US Attending Dr: Jordan Gabriel MD Ordering Physician: Jordan Gabriel MD Date of Service: 11/02/24 Procedure(s): US venous duplex LE LT Accession Number(s): [id number] cc: Jordan Gabriel MD EXAMINATION: US LOWER [...] 11/02/24 1128 DD/ 1106 TD/TT: 11/02/24 1114 [employer] Engineer: [address] [address] Ultrasound Report Signed Patient: Anthony Goodman Sr MR#: [id number] : 1940 Acct:[id number] Age/Sex: 84 / M ADM Date: 11/02/24 Loc: .US Attending Dr: Jordan Gabriel MD Ordering Physician: Jordan Gabriel MD Date of Service: 11/02/24 Procedure(s): US christopher ous duplex LE LT Accession Number(s): [id number] cc: Jordan Gabriel MD EXAMINATION: US LOWE [...] 11/02/24 1128 DD/ 1106 TD/TT: 11/02/24 1114 [employer] Engineer: Reason For Referral Reason please [email or web address] [...] Specialty Cardiovascul ar Disease General Notes Narda Elizabeht 0 12/11/2024 10:55:39 AM > had his holter monitor on 12-03-[address] Padilla for follow up Referral Priority Routine Referral Appointment Date 12/03/2024 Medications Medication SIG (Take, Route, Frequency, Duration) Notes Start Date End Date Status Atorvastatin Calcium 80 MG 1 tablet Orally Once a day Active Ferrous Sulfate 325 (65 Fe) MG 1 tablet Orally BID Active Albuterol Sulfate HFA 108 (90 Base) MCG/ACT 1 puff as needed Inhalation every 4 hrs for 30 days 12/08/2024 Active Furosemide 20 MG 1 tablet Orally Once a day for 30 day(s) 12/08/2024 Active Metoprolol Succinate ER 25 MG 1 tablet Orally Once a day for 30 days 11/17/2024 Active metFORMIN HCl 500 MG TAKE 1 TABLET BY MO [facility] TWICE A DAY WITH MEALS Active Xarelto 20 MG 1 tablet with food Orally Once a day Active Lisinopril 20 MG TAKE 1 TABLET BY JANETH EVERY DAY Active Albuterol Sulfate HFA 108 (90 Base) MCG/ACT 1 puff as needed Inhalation every 4 hrs 04/13/2022 Active Omeprazole 20 MG 1 capsule Orally Onc e a day Active Symbicort 160-4.5 MCG/ACT 2 puffs Inhala tion Twice a day for 30 days 11/14/2017 Not-Taki ng Nystatin 370023 UNIT/GM 1 application Externally Twice a day for 14 days 04/28/2019 Active Benadryl Allergy 25 MG 1 tablet [...] 3 days for 14 days 07/24/2024 Not-Taking FreeStyle Lite Test 0 as directed In Vit ro DX: E 11.9 use tot test blood sugar once a day for 30 days 01/17/2016 Active Ventolin HFA 108 (90 Base) MCG/ACT 2 puffs as needed Inhalation every 4 hrs Not-Takin g Immunizations Vaccine Route Administration Date Status Comme nts Flu Vaccine Unknown 01/10/[address] [facility] PPSV23 (Pnemovax) Unknown 01/10/2012 Administered given at [facility] Flu Vaccine Unknown 01/07/2014 Administered Flu Vaccine Unknown 12/31/2013 Administered received at [facility] Prevnar 13 IM Intramuscular 08/20/2014 Administered Flu Vaccine IM Intramuscular 12/22/2014 Administered pt re cieved high dose flu vaccine at [facility], Fluarix Quadrivalent Unknown 12/21/2015 Administered [facility] Unknown 01/26/2015 Administered [facility] Fluarix Quadrivalent IM Intramuscular 12/06/2016 Adminvidya pearl PPSV23 (Pnemovax) IM Intramuscular 04/15/2017 Administered Influenza High Dose Unknown 12/17/2017 Administered [facility] Fluarix Quadrivalent IM Intramuscular 12/19/2018 Adminvidya pearl pt was given the vaccine at [facility] in [place]. Influenza High Dose IM Intramuscular 12/04/2019 Administer [...] Problem Status W/U Status Risk Notes Problem 23528875 Type 2 diabetes mellitus without complications (E11.9) Active confirmed Problem Atrial fibrillation (86330678) Atrial fibrillation (I48.91) Active confirmed Problem Gout attack (790419242) Gout attack (M10.9) Active confirmed Problem 539217324 Paroxysmal atria l fibrillation (I48.0) Active confirmed Problem 1671345 Panlobular emphy sema (J43.1) Active confirmed Problem 30655809 Essential hypert ension (I10) Active confirmed Problem 237854867 Low HDL (under 4 0) (E78.6) Active confirmed Problem 316935180 Lung nodule (R91.1) Active confirmed Problem 000671204 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) Active confirmed Problem Chronic obstructive pulmonary disease with acute lower respiratory infection (668169932) COPD (chronic obstructive pulmonary disease) with acute bronchitis (J44.0) Active confirmed Problem 77991658 Iron deficiency anemia, unspecified iron deficiency anemia type (D50.9) Active confirmed Problem Claudication (18666866) Claudication (I73.9) Active confirmed Problem 979725120 Adenoma (D36.9) Active confirmed Problem 6444028509944907 Acute idiopathi c gout involving toe of left foot (M10.072) Active confirmed Problem 14115578 Lymphadenopathy, mediastinal (R59.0) Active confirmed Problem 462935134 Rising PSA level (R97.20) Active confirmed Problem 602108005 History of calcu leonard of gallbladder (Z87.19) Active confirmed Problem 671546443 Pure hypercholesterolemia (E78.00) Active confirmed Problem Gout (98206066) Acute gout of le ft foot, unspecified cause (M10.9) Active confirmed Problem 58281368 Hip arthritis (M16.10) Active confirme d Problem 155327025 Adenocarcinoma o f lung, 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) Active confirmed Problem 308739263 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 Problem 630331373 Esophageal dysfu nction (K22.4) Active confirmed Problem 224651808 Lower esophageal ring (Schatzki) (K22.2) Active confirmed Vital Signs Heart Rate 110 /min 11/17/2024 Blood pressure diastolic 60 mm Hg 12/08/2024 alice ght is up 2 pounds since 11-17-24 Height 71 in 12/08/2024 weight is up 2 pounds since 11-17-24 Blood pressure systolic 142 mm Hg 12/08/2024 weig ht is up 2 pounds since 11-17-24 Weight 203 lbs 12/08/2024 weight is up 2 pounds since 11-17-24 BMI 28.31 kg/m2 12/08/2024 weight is up 2 pounds since 11-17-24 Encounters Encounter Location Date Provider Diagnosis Jordan Gabriel MD [address] [place] [id number] 05/12/2024 Jordan Gabriel Type 2 diabetes mina itus without complications E11.9 and Pure hypercholesterolemia E78.00 Jordan Gabriel MD [address] [place] [id number] 10/09/2024 Jordan Gabriel Hyperkalemia E87.5 Jordan Gabriel MD [address] [place] [id number] 11/10/2024 Jordan Gabriel Type 2 diabetes mina itus without complications E11.9 ; Pure hypercholesterolemia E78.00 ; Rising PSA level R97.20 ; Iron deficiency anemia, unspecified iron deficiency anemia type D50.9 and Essential hypertension I10 Jordan Gabriel MD [address] [place] [id number] 11/24/2024 Jordan Gabriel Paroxysmal atrial fibrillation I48.0 Jordan Gabriel MD [address] [place] [id number] 11/24/2024 Jordan Gabriel Encounter for administration of vaccine Z23 Jordan Gabriel MD [address] [place] [id number] 05/19/2024 Jordan Gabriel Encounter for genera l adult medical examination with abnormal findings Z00.01 ; Esophageal dysfunction K22.4 ; Pure hypercholesterolemia E78.00 and Type 2 diabetes mellitus without complications E11.9 Jordan Gabriel MD [address] [place] [id number] 07/24/2024 Jordan Gabriel Gout attack M10.9 Jordan Gabriel MD [address] [id number] 11/02/2024 Jordan Gabriel Gout attack M10.9 an d Leg edema R60.0 Jordan Gabriel MD [address] [place] [id number] 11/09/2024 Jordan Gabriel Gout attack M10.9 an d Leg edema R60.0 oJrdan Gabriel MD [address] [place] [id number] 11/17/2024 Jordan Gabriel Foot pain, right M79 .671 ; Paroxysmal atrial fibrillation I48.0 ; Elevated BUN R79.9 ; Type 2 diabetes mellitus without complications E11.9 ; Pure hypercholesterolemia E78.00 ; Essential hypertension I10 ; Iron deficiency anemia, unspecified iron deficiency anemia type D50.9 and COPD (chronic obstructive pulmonary disease) with acute bronchitis J44.0 Jordan Gabriel MD [address] [place] [id number] 12/08/2024 Jordan Gabriel Panlobular emphysema J43.1 ; Atrial fibrillation I48.91 and Edema R60.9 Jordan Gabriel MD [address] [id number] 07/17/2024 Jordan Gabriel MD [address] [place] [id number] 09/08/2024 Jordan Gabriel Assessments Encounter Date Diagnosis (ICD Code) Assessment Notes Treatment Notes Treatment Clinical Notes Section Notes 05/12/2024 Type 2 diabetes mellitus without complications [...] being done today 11-02-2024 at 11am at [facility] , pending diagnostic testing 11/09/2024 Gout attack (ICD-10 - M10.9) has resolved, patient verbalized understanding to stop medication 11/17/2024 Foot pain, right (ICD-10 - M79.671) order given to patient 11/17/2024 Paroxysmal atrial fibrillation (ICD-10 - I48.0) getting ecg and back to dr padilla/salena ecg with regular rythm but is rapid afib. , patient verbalized understandngof medication and directions for use 12/08/2024 Panlobular emphysema (ICD-10 - J43.1) patient verbalized undertstanding of medication and directions for use 12/08/2024 Atrial fibrillation (ICD-10 - I48.91) 05/12/2024 Pure hypercholesterolemia (ICD-10 - E78.00) 11/10/2024 Pure hypercholesterolemia (ICD-10 - E78.00) 05/19/2024 Pure hypercholesterolemia (ICD-10 - E78.00) has good numbers 11/09/2024 Leg edema (ICD-10 - R60.0) started to go away with the prednisone, has resolved 11/17/2024 Elevated BUN (ICD-10 - R79.9) probably from the lasix. which has been stopped , pending labs 12/08/2024 Edema (ICD-10 - R60.9) patie nt verbaized understanding of medication and directions for use, will continue to monitor 11/10/2024 Rising PSA level (ICD-10 - R97.20) [...] LEG LT VENOUS DOPPLER 11/02/2024 PFT 08/20/2014 CT chest w con 10/24/2023 US venous duplex LE LT 08/23/2020 CBC (INCLUDES DIFF/PLT) 08/30/2020 BUN 08/30/2020 CREATININE 08/30/2020 Next Appt Details Provider Name:Jordan ward, 01/05/2025 01:45:00 PM, [address] [place] [address], Suite [facility], [place], [place], [phone], Provider Name:Jordan ward, 05/21/2025 01:45:00 PM, [address] [place] [address], [address] [facility], [place], [place], [phone], Provider Name:Jordan ward, 11/15/2025 07:15:00 AM, [address] [place] [address], [place] [address], [place], [place], [phone], Provider Name:Jordan Cyr ier, 11/22/2025 10:30:00 AM, [address], [address], [place], [place], [phone], Insurance Providers Payer Name Payer Address Payer Phone Subscriber Number Group Number Insured Name Patient Relationship to Insured Coverage Start Date Coverage End Date [employer] [address] [place] [address] [id number] Anthony Goodman Self - patient is the insured [employer] [address] [place], [place] [id number] Anthony Goodman Self - patient is [...] Date(Month/Year) 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
== END ==
LOC: HO.CARD 07:42
PROVIDERS: PCP Internal Medicine; Visit Provider Internal Medicine Cardiovascular Disease
DX: I48.21 Permanent atrial fibrillation (principal); I25.10 Atherosclerotic heart disease of native coronary artery without angina pectoris
CPT/HCPCS: 93225

== ENCOUNTER → 2025-01-25 10:28 | Outpatient (REF) | payer MEDICARE, SELFPAY ==
--- OUTSIDE RECORDS SUMMARY | 2024-07-23 09:20 | XMS_ITS ---
Author Organization [facility] Address [address] [place] [address] Care Team Providers Care Reel Tender Name Role Phone Jordan Gabriel MD Primary Care Provider Patito Carpenter [phone] REASON FOR VISIT gerd,hx esophageal stricture,dysphagia Encounters Encounter Location Date Provider Diagnosis [facility] [place] [address] [place] [address] [place] [phone] 07/23/2024 Patito Andrews Esophageal strictu re K22.2 and Hiatal hernia K44.9 Assessments Encounter Date Diagnosis (ICD Code) Assessment Notes Treatment Notes Treatment Clinical Notes Section Notes 07/23/2024 Esophageal stricture (ICD-10 - K22.2) 07/23/2024 Hiatal hernia (ICD-10 - K44.9) Plan Of Treatment No Information Progress Notes * PATITO BUSTILLO CDOB:1939 (84 yo M)Acc No.[id number]:07/23/2024 EGD/MAC Patient: Carlota BRICENO PATITO Buckley Provider: Jose Francisco Andrews MD :1940 A ge:84 Y S ex:Male Date:07/23/2024 Address: [id number] Pcp:Jordan Gabriel MD Subjective: * Chief Complaints: * 1 . Gerd,hx esophageal stricture,dysphagia. * Medical History: Objective: * Vitals: Assessment: * Assessment: 1. E sophageal stricture - K22.2 (Primary) 2 . H iatal hernia - K44.9 ? Plan: * Treatment: * Procedure Codes: 4 3249 ESOPH ENDOSCOPY, DILATION * * The named appointment provid er may or may not be the originator of this progress note, and it is not deemed complete until electronically signed by the appointment provider. Sign off status: Pending * Provider: Jose Francisco Andrews MD Date: 0 07/23/2024 Generated for Gautam oh/Isaac/Editting on: 03/27/2024 12:36 PM EST
--- OUTSIDE RECORDS SUMMARY | 2024-09-08 05:04 | XMS_ITS ---
Author Organization Jordan Gabriel MD Address [address] [place] [phone] Care Team Providers Care Brass Pourer Name Role Phone Jordan Gabriel Primary Care Provider REASON FOR VISIT Ct Chest due Encounters Encounter Location Date Provider Diagnosis Jordan Gabriel MD [address] [place] [phone] 09/08/2024 Jordan Gabriel Plan Of Treatment Next Appt Details Provider Name:Jordan Cyr ier, 03/09/2025 03:00:00 PM, [address], [place], [place], [phone], Provider Name:Jordan Cyr ier, 05/21/2025 01:45:00 PM, [address], [place], [phone], Provider Name:Jordan Cyr ier, 11/15/2025 07:15:00 AM, [address], [place], [phone], Provider Name:Jordan Cyr ier, 11/22/2025 10:30:00 AM, [address], [place], [place], [phone], Progress Notes * Anthony GOODMAN CDOB:1939 (84 yo M)Acc No.[id number]:09/08/2024 Patient: Anthony GARCIA :1940 A ge:84 Y S ex:Male Address: [place] [address] * true * Date: Generated for Gautam oh/Isaac/eTransmitting on: 03/27/2024 12:36 PM EST
--- OUTSIDE RECORDS SUMMARY | 2024-10-09 04:00 | XMS_ITS ---
Author Organization Jordan Gabriel MD Address [address] [place] [phone] Care Team Providers Care Centrifugal Screen Tender Name Role Phone Nery Jordan Primary Care Provider [phone] Results Component Value Reference Range Notes Potassium Reviewed date:10/09/2024 12:34:47 PM Interpretation: Performing Lab:[facility], [address] [place] [phone] Notes/Report: Potassium 5.0 3.3-5.1 mmol/L REASON FOR VISIT Potassium Encounters Encounter Location Date Provider Diagnosis Jordan Gabriel MD [address] [place] [phone] 10/09/2024 Jordan Gabriel Hyperkalemia E87.5 Assessments Encounter Date Diagnosis (ICD Code) Assessment Notes Treatment Notes Treatment Clinical Notes Section Notes 10/09/2024 Hyperkalemia (ICD-10 - E87.5) Plan Of Treatment Next Appt Details Provider Name:Jordan Cyr yoonr, 03/09/2025 03:00:00 PM, [address] [place] [address], Suite [facility], [place], [place], [phone], Provider Name:Jordan Cyr ier, 05/21/2025 01:45:00 PM, 10 [facility], Suite [facility], [place], [place], [phone], Provider Name:Jordan nettlesr, 11/15/2025 07:15:00 AM, [address] [place] [address], Suite [facility], [place], [place], [phone], Provider Name:Jordan Cyr yoonr, 11/22/2025 10:30:00 AM, [address] [place] [address], Suite [facility], [place], [place], [phone], Progress Notes * KENYAnthony AYERS CDOB:1939 (84 yo M)Acc No.[id number]:10/09/2024 Progress Note Patient: Anthony GARCIA Provider: Emery Gabriel MD :1940 A ge:84 Y S ex:Male Date:10/09/2024 Address:[address] [place] [address] [facility] Subjective: * Chief Complaints: * 1 . [...] 10/09/2024 Generated for Gautam oh/Isaac/Esequiel on: 1 03/27/2024 12:36 PM EST
--- OUTSIDE RECORDS SUMMARY | 2024-11-02 04:45 | XMS_ITS ---
Author Organization Jordan Gabriel MD Address [address] [place] [phone] Support Name Relationship Address Phone Jordan Gabriel Caregiver [address] [facility] [address] [place] [phone] JEFFERY HUSTON Caregiver [address] [facility] [address] [place] [phone] Alfred Pierre Caregiver [address] [facility] [address] [address] [place] [phone] Anthony Andrews Caregiver [address] [facility] [address] [address] [place] [phone] Erickson Payton Caregiver [address] [place] [phone] Cr Foley Caregiver [address] [facility] [address] [address] [place] [phone] Darryl Padilla Caregiver [address] [facility] [address] [address] [place] [phone] Vicente Leigh Caregiver [address] [place] [phone] Unavailable Emergency Contact Unknown [phone] Anthony Goodman Guarantor Unknown Care Team Providers Care Facilities Specialist Name Role Phone Jordan Gabriel Primary Care Provider Allergies No Known Allergies REASON FOR VISIT [...] MG 1 tablet Orally BID Active Nystatin 342382 UNIT/GM 1 application Externally Twice a day [...] Date Provider Diagnosis Jordan Gabriel MD 10 [facility] [address] [place] [phone] 11/02/2024 Jordan Gabriel Gout attack M10.9 and Leg edema R60.0 Assessments Encounter Date Diagnosis (ICD Code) Assessment Notes Treatment Notes Treatment Clinical Notes Section Notes 11/02/2024 Gout attack (ICD-10 - M10.9) patient verbalized nderstanding of medication and directions for use 11/02/2024 Leg edema (ICD-10 - R60.0) being done today 11-02-2024 at 11am at [facility] , pending diagnostic testing Plan [...] being done today 10-23 at 11am at [facility] , pending diagnostic testing Pending Test Test Name Order Date US LEG LT VENOUS DOPPLER 11/02/2024 Next Appt Details Follow Up: 1 Week, Reason: Provider Name:Jordan ward, 03/09/2025 03:00:00 PM, [address] [place] [address], [address], [phone], Provider Name:Jordan ward, 05/21/2025 01:45:00 PM, [address] [place] [address], [address], [phone], Provider Name:Jordan ward, 11/15/2025 07:15:00 AM, [address] [place] [address], [address], [phone], Provider Name:Jordan ward, 11/22/2025 10:30:00 AM, [address] [place] [address], [phone], Progress Notes * Anthony GOODMAN CDOB:1939 (84 yo M)Acc No.[id number]:11/02/2024 Progress Notes Patient: Anthony GARCIA Provider: Emery Gabriel MD :1940 A ge:84 Y S ex:Male Date:11/02/2024 Address: [place], [id number] Subjective: * Chief Complaints: * R FT [...] as needed Inhalation every 4 hrs Nystatin 674282 UNIT/GM Cream 1 application Externally Twice a [...] needed Inhalation every 4 hrs Taking Nystatin 870501 UNIT/GM Cream 1 application Externally Twice a [...] being done today 11-02-2024 at 11am at [facility] , pending diagnostic testing * Procedure Codes: * Follow Up: 1 Week * * Sign off status: Completed true * Provider: Emery Gabriel MD Date: 0 11/02/2024 Generated for Gautam oh/Isaac/Editting on: 03/27/2024 12:37 PM EST History and Physical Notes * HPI [...]
--- OUTSIDE RECORDS SUMMARY | 2024-11-09 06:45 | XMS_ITS ---
Author Organization Jordan Gabriel MD Address [address] [place] [phone] Care Team Providers Care Commercial Appraiser Name Role Phone Jordan Gabriel Primary Care Provider [phone] Allergies No Known Allergies REASON FOR VISIT [...] for 30 days 11/14/2017 Not-Guillermo ng Nystatin 243418 UNIT/GM 1 application Externally Twice a day for 14 days 04/28/2019 Active metFORMIN HCl 500 MG TAKE 1 TABLET BY [facility] TWICE A DAY WITH MEALS for 90 Active Albuterol Sulfate HFA 108 (90 Base) MCG/ACT 1 puff as needed Inhalation every 4 hrs 04/13/2022 Active Lisinopril 20 MG TAKE 1 TABLET BY [facility] EVERY DAY for 90 Active predniSONE [...] kg/m2 11/09/2024 weight is down 2 pounds [facility] e 11-02-24 Encounters Encounter Location Date Provider Diagnosis Jordan Gabriel MD [address] [place] [address] [phone] 11/09/2024 Jordan Gabriel Gout attack M10.9 and [...] Provider Name:Jordan Cyr ier, 03/09/2025 03:00:00 PM, [address] [place] [address], [address], [phone], Provider Name:Jordan Cyr ier, 05/21/2025 01:45:00 PM, [address] [place] [address], [address], [phone], Provider Name:Jordan Cyr ier, 11/15/2025 07:15:00 AM, [address] [place] [address], [address], [phone], Provider Name:Jordan nettlesr, 11/22/2025 10:30:00 AM, [address] [place] [address], [address], [phone], Progress Notes * Anthony GOODMAN CDOB:1939 (84 yo M)Acc No.[id number]:11/09/2024 Patient: Anthony GARCIA Provider: Emery Gabriel MD :1940 A ge:84 Y S ex:Male Date:11/09/2024 [id number] Subjective: * Chief Complaints: * 1 week [...] as needed Inhalation every 4 hrs Nystatin 026830 UNIT/GM Cream 1 application Externally Twice a [...] needed Inhalation every 4 hrs Taking Nystatin 432396 UNIT/GM Cream 1 application Externally Twice a [...] 11/09/2024 Generated for Gautam oh/Isaac/Editting on: 1 03/27/2024 12:37 PM EST History and Physical [...]
--- OUTSIDE RECORDS SUMMARY | 2024-11-10 03:00 | XMS_ITS ---
Author Organization Jordan Gabriel MD Address [address] [place] [phone] Care Team Providers Care Liquefied Natural Gas Plant Operator Name Role Phone Jordan Gabriel Primary Care Provider [phone] Results Component Value Reference Range Notes Complete Blood Count Auto Di ff Reviewed date:11/10/2024 04:43:39 PM Interpretation: Performing Lab:[facility], [address] [place] [phone] Notes/Report: White Blood Count 14.2 4.8-10.8 X10*3/uL [...] NRBC Abs Auto 0.000 0.0-0.012 X10*3/uL Comprehensive [place]. Panel Fa st Reviewed date:12/08/2024 12:40:38 PM Interpretation:12-08-2024 Performing Lab:[facility], [address] [place] [phone] Notes/Report: Sodium 136 135-145 mmol/L Potassium 4.7 [...] PROFILE Reviewed date:11/10/2024 12:58:08 PM Interpretation: Performing Lab:[facility], [address] [place] [phone] Notes/Report: Iron 49 45-160 mcg/dL Total Iron Binding Capacity 282 228-428 mcg/d L Percent Iron Saturation 17 15-50 % Unsaturated Iron Binding 233 Lipid Panel Reviewed date:11/10/2024 12:57:18 PM Interpretation: Performing Lab:[facility], [address] [place] [phone] Notes/Report: Triglycerides 81 <150 mg/dL Desirable Triglyceride: [...] (Free>4and<10) Reviewed date:11/10/2024 01:00:52 PM Interpretation: Performing Lab:[facility], [address] [place] [phone] Notes/Report: PSA,Total (Free>4and<10) 2.37 0.00-4.00 ng/mL A [...] Random Reviewed date:11/10/2024 04:33:57 PM Interpretation: Performing Lab:[address] [phone] Notes/Report: Creatinine Urine 44.71 Microalbumin Urine 9.0 Microalbum/Creatinine Ratio Ur 20.1 <30 ug/mg cr Albumin/Creatinine Ratio Reference Ranges: Normal: < 30 ug/mg creatinine Microalbuminuria: 30 - 300 ug/mg creatinine Clinical Albuminuria: > 300 ug/mg creatinine Hemoglobin A1c Reviewed date:11/10/2024 12:57:28 PM Interpretation: Performing Lab:[address] [phone] Notes/Report: Hemoglobin A1c % 6.5 <6.0 % [...] average glucose, using the formula of the S3A-Wgckqrv Average Glucose study (ADAG), Diabetes Care, Vol.31,#8, Oct. 2007 UA ClnCatch+Micro w/rflx Cul t Reviewed date:11/11/2024 12:30:51 PM Interpretation: Performing Lab:[facility], [address] [place] [phone] Notes/Report: Urine, Clean Catch Color Urine Yellow Appearance Urine Clear PH 5.5 5.0-9.0 Glucose Urine UA Negative Negative mg/dL Urine Blood Negative Negative Specific [place] - Urine 1.010 1.005-1.025 Urine Protein Negative [...] Location Date Provider Diagnosis Jordan Gabriel MD [address] [place] [phone] 11/10/2024 Jordan Gabriel Type 2 diabetes mina [...] Details Provider Name:Jordan ward, 03/09/2025 03:00:00 PM, [address] [place] [address], [address], [phone], Provider Name:Jordan ward, 05/21/2025 01:45:00 PM, [address] [place] [address], [address], [phone], Provider Name:Jordan ward, 11/15/2025 07:15:00 AM, [address] [place] [address], [phone], Provider Name:Jordan ward, 11/22/2025 10:30:00 AM, [address] [place] [address], [phone], Progress Notes * Anthony GOODMAN CDOB:1939 (84 yo M)Acc No.[id number]:11/10/2024 Progress Note Patient: Anthony GARCIA Provider: Emery Gabriel MD :1940 A ge:84 Y S ex:Male Date:11/10/2024 [facility] Subjective: * Chief Complaints: * 1 . [...] - 11/10/2024 08:00 AM) L AB: Comprehensive [place]. Panel Fast (Collection Date & Time - [...] - 11/10/2024 08:00 AM) L AB: Comprehensive [place]. Panel Fast (Collection Date & Time - [...] - 11/10/2024 08:00 AM) L AB: Comprehensive [place]. Panel Fast (Collection Date & Time - [...] - 11/10/2024 08:00 AM) L AB: Comprehensive [place]. Panel Fast (Collection Date & Time - [...] 11/10/2024 Generated for Gautam oh/Isaac/Esequiel on: 1 03/27/2024 12:38 PM EST
--- OUTSIDE RECORDS SUMMARY | 2024-11-17 05:30 | XMS_ITS ---
Author Organization Jordan Gabriel MD Address [address] [place] [phone] Care Team Providers Care Heater Operator Helper Name Role Phone Jordan Gabriel Primary Care Provider Allergies No Known Allergies Results Component Value Reference Range Notes XR foot RT 2V Reviewed date:11/17/2024 04:42:26 PM Interpretation: Performing Lab: Notes/Report: [address] [address] XRay Report Signed Patient: Anthony Goodman MR#: [id number] : 1940 Acct:[id number] Age/Sex: 84 / M ADM Date: 11/17/24 Loc: HO.XRAY Attending Dr: Jordan Gabriel MD Ordering Physician: Jordan Gabriel MD Date of Service: 11/17/24 Procedure(s): XR foot RT 2V Accession Number(s): [id number] cc: Jordan Gabriel MD EXAMINATION: XR FOOT [...] 11/17/24 1137 DD/ 1115 TD/TT: 11/17/24 1123 Shoe Singer: [place] [address] XRay Report Signed Patient: Angelia Goodman Sr MR#: [id number] : 1940 Acct:[id number] Age/Sex: 84 / M ADM Date: 11/17/24 Loc: HO.XRBRADEN Attending Dr: Jordan Gabriel MD Ordering Physician: Jordan Gabriel MD Date of Service: 11/17/24 Procedure(s): XR foot RT 2V Accession Number(s): [id number] cc: Jordan Gabriel MD EXAMINATION: XR FOOT [...] 11/17/24 1137 DD/ 1115 TD/TT: 11/17/24 1123 Shoe Singer: Reason For Referral Reason I48.[address]. Gabriel and Dr. Padilla spoke regarding patient's issue, was told Dr. Padilla office would be calling patient with an appt Diagnosis 1 Paroxysmal atrial fi brillation (I48.0) Referral Organization Jordan Gabriel MD Referring Provider First Name Jordan Referring Provider Last Name Nery Referring Provider Speciality Internal M edicine Referred Provider aDrryl Padilla Referred Provider Specialty Cardiovascul ar Disease General Notes Narda Elizabeth 0 12/11/2024 10:55:39 AM > had his holter monitor on 12-03-[address] Padilla for follow up Referral Priority Routine Referral Appointment Date 12/03/2024 REASON FOR VISIT COMP EXAM/must Comp met labs Medications Medication SIG (Take, Route, Frequency, Duration) Notes Start Date End Date Status Nystatin 033102 UNIT/GM 1 application Externally Twice a day [...] 500 MG TAKE 1 TABLET BY MO [facility] TWICE A DAY WITH MEALS Active Albuterol [...] Location Date Provider Diagnosis Jordan Gabriel MD [address] [place] [address] [place] [phone] 11/17/2024 Jordan Gabriel Foot pain, right M79 [...] Reason: Provider Name:Jordan nettlesr, 03/09/2025 03:00:00 PM, [address] [place] [address], [address], [phone], Provider Name:Jordan ward, 05/21/2025 01:45:00 PM, [address] [place] [address], [address], [phone], Provider Name:Jordan ward, 11/15/2025 07:15:00 AM, [address] [place] [address], [address], [phone], Provider Name:Jordan nettlesr, 11/22/2025 10:30:00 AM, [address] [place] [address], [address], [phone], Progress Notes * Anthony GOODMAN CDOB:1939 (84 yo M)Acc No.[id number]:11/17/2024 Patient: Anthony GARCIA Ina Provider: Emery Gabriel MD :1940 A ge:84 Y S ex:Male Date:11/17/2024 Address: [id number] Subjective: * Chief Complaints: * C OMP [...] spouse. Marital status: . 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 Pets: dogs. * Medications: T akingFreeStyle [...] as needed Inhalation every 4 hrs Nystatin 383030 UNIT/GM Cream 1 application Externally Twice a [...] needed Inhalation every 4 hrs Taking Nystatin 568457 UNIT/GM Cream 1 application Externally Twice a [...] mg/dL Urine Blood Negative Negative - Specific [place] - Urine 1.010 1.005-1.025 - Urine Protein [...] 0 11/17/2024 Generated for Gautam oh/Isaac/Júniorsmitting on: 03/27/2024 12:37 PM EST History and [...]
--- OUTSIDE RECORDS SUMMARY | 2024-11-24 02:30 | XMS_ITS ---
Author Organization Jordan Gabriel MD Address [address] [place] [address] [phone] Care Team Providers Care Quality Systems Manager Name Role Phone Jordan Gabriel Primary Care Provider [phone] Results Component Value Reference Range Notes Blood Urea Nitrogen Reviewed date:11/24/2024 01:52:49 PM Interpretation: Performing Lab:[address] [phone] Notes/Report: Blood Urea Nitrogen 21 9-16 mg/dL Creatinine Reviewed date:11/24/2024 01:52:40 PM Interpretation: Performing Lab:[facility], [address] [place] [phone] Notes/Report: Creatinine 1.37 0.5-1.4 mg/dL Estimated Glomerular Filt Rate 50 Chronic Kidney Disease: Estimated GFR < 60 mL/min/1.73m2 Severe Kidney Disease: Estimated GFR < 15 mL/min/1.73m2 REASON FOR VISIT Bun and creatine Encounters Encounter Location Date Provider Diagnosis Jordan Gabriel MD [address] [place] [address] [phone] 11/24/2024 Jordan Gabriel Paroxysmal atrial fibrillation I48.0 Assessments Encounter Date Diagnosis (ICD Code) Assessment Notes Treatment Notes Treatment Clinical Notes Section Notes 11/24/2024 Paroxysmal atrial fibrillation (ICD-10 - I48.0) Plan Of Treatment Next Appt Details Provider Name:Jordan ward, 03/09/2025 03:00:00 PM, [address] [place] [address], [phone], Provider Name:Jordan ward, 05/21/2025 01:45:00 PM, [address] [place] [address], [address], [phone], Provider Name:Jordan ward, 11/15/2025 07:15:00 AM, [address] [place] [address], [phone], Provider Name:Jordan ward, 11/22/2025 10:30:00 AM, [address] [place] [address], [phone], Progress Notes * Anthony GOODMAN CDOB:1939 (84 yo M)Acc No.[id number]:11/24/2024 Progress Note Patient: Anthony GARCIA Provider: Emery Gabriel MD :1940 A ge:84 Y S ex:Male Date:11/24/2024 Address:[address] [place] [address] [facility] Subjective: * Chief Complaints: * 1 . [...] 0 11/24/2024 Generated for Gautam oh/Isaac/Esequiel on: 03/27/2024 12:37 PM EST
--- OUTSIDE RECORDS SUMMARY | 2024-11-24 05:15 | XMS_ITS ---
Author Organization Jordan Gabriel MD Address [address] [place] [phone] Care Team Providers Care Mechanical Specialist Name Role Phone Jordan Gabriel Primary Care Provider REASON FOR VISIT HDF Immunizations Vaccine Route Administration Date Status Comme nts Influenza High Dose IM Intramuscular 11/24/2024 Administer ed Encounters Encounter Location Date Provider Diagnosis Jordan Gabriel MD [address] [place] [phone] 11/24/2024 Jordan Gabriel Encounter for administration of vaccine Z23 Assessments Encounter Date Diagnosis (ICD Code) Assessment Notes Treatment Notes Treatment Clinical Notes Section Notes 11/24/2024 Encounter for administration of vaccine (ICD-10 - Z23) Plan Of Treatment Next Appt Details Provider Name:Jordan Cyr ier, 03/09/2025 03:00:00 PM, [address], [address], [place], [phone], Provider Name:Jordan Cyr ier, 05/21/2025 01:45:00 PM, [address], [address], [place], [place], [phone], Provider Name:Jordan Cyr ier, 11/15/2025 07:15:00 AM, [address], [address], [place], [phone], Provider Name:Jordan Cyr ier, 11/22/2025 10:30:00 AM, [address] [place] [address], Suite [facility], [place], [place], [phone], Progress Notes * Anthony GOODMAN CDOB:1939 (84 yo M)Acc No.[id number]:11/24/2024 Progress Note Patient: Anthony GARCIA Provider: Emery Gabriel MD :1940 A ge:84 Y S ex:Male Date:11/24/2024 Address:[address] [place], [place] [id number] Subjective: * Chief Complaints: * 1 . [...] 11/24/2024 Generated for Gautam oh/Isaac/Esequiel on: 1 03/27/2024 12:38 PM EST
--- OUTSIDE RECORDS SUMMARY | 2024-12-08 04:15 | XMS_ITS ---
Author Organization Jodran Gabriel MD Address [address] [place] [phone] Care Team Providers Care Data Processing Mechanic Name Role Phone Jordan Gabriel Primary Care Provider [phone] Allergies No Known Allergies REASON FOR VISIT [...] food Orally Once a day Active Nystatin 922172 UNIT/GM 1 application Externally Twice a day [...] W/U Status Risk Notes Problem Atrial fibrillation (67765824) Atrial fibrillation (I48.91) Active confirmed Vital Signs Blood pressure systolic 142 mm Hg 12/09/19 25 Blood pressure diastolic 60 mm Hg 025 Height 71 in 12/08/2024 Weight 203 lbs 12/08/2024 BMI 28.31 kg/m2 12/08/2024 weight is up 2 pounds since 11-17-24 Encounters Encounter Location Date Provider Diagnosis Jordan Gabriel MD [address] [place], [place] [phone] 12/08/2024 Jordan Gabriel Panlobular emphysema J43.1 ; [...] Up: 3 Weeks, Reason: Provider Name:Jordan ward, 03/09/2025 03:00:00 PM, [address] [place] [address], [address], [phone], Provider Name:Jordan ward, 05/21/2025 01:45:00 PM, [address] [place] [address], [phone], Provider Name:Jodran ward, 11/15/2025 07:15:00 AM, [address] [place] [address], [address], [phone], Provider Name:Jordan ward, 11/22/2025 10:30:00 AM, [address] [place] [address], [phone], Progress Notes * Anthony GOODMAN CDOB:1939 (84 yo M)Acc No.[id number]:12/08/2024 Patient: Anthony GARCIA Provider: Emery Gabriel MD :1940 A ge:84 Y S ex:Male Date:12/08/2024 Address:[id number] Subjective: * Chief Complaints: * 3 weeks [...] 1 capsule Orally Once a day Nystatin 906475 UNIT/GM Cream 1 application Externally Twice a [...] capsule Orally Once a day Taking Nystatin 455241 UNIT/GM Cream 1 application Externally Twice a [...] MD Date: 0 12/08/2024 Generated for Gautam oh/Isaac/eTransmitting on: 03/27/2024 12:38 PM EST History and Physical Notes * [...]
--- OUTSIDE RECORDS SUMMARY | 2025-01-05 08:45 | XMS_ITS ---
Author Organization Jordan Gabriel MD Address [address] [place] [phone] Care Team Providers Care Manager Cafe Name Role Phone Jordan Gabriel Primary Care Provider [phone] Allergies No Known Allergies REASON FOR VISIT 3 week, Accompanied by Medications Medication SIG (Take, Route, Frequency, Duration) Notes Start Date End Date Status Atorvastatin Calcium 80 MG 1 tablet Orally Once a day Active Ferrous Sulfate 325 (65 Fe) MG 1 tablet Orally BID Active metFORMIN HCl 500 MG TAKE 1 TABLET BY [facility] TWICE A DAY WITH MEALS Active [...] for 30 days 11/14/2017 Not-Taki ng Nystatin 497185 UNIT/GM APPLY DAILY TO S KIN TO [...] Jordan Gabriel MD [address] [facility] [address] [place], [place] [phone] 01/05/2025 Jordan Gabriel Paroxysmal atrial fibrillation I48.0 [...] Provider Name:Jordan ward, 03/09/2025 03:00:00 PM, [address] [place] [address], [address], [place], [phone], Provider Name:Jordan ward, 05/21/2025 01:45:00 PM, [address] [place] [address], [address], [place], [place], [phone], Provider Name:Jordan ward, 11/15/2025 07:15:00 AM, [address], [address], [place], [place], [phone], Provider Name:Jordan Cyr ier, 11/22/2025 10:30:00 AM, [address], [address], [place], [place], [phone], Progress Notes * KENYAnthony Mccall CDOB:1939 (84 yo M)Acc No.[id number]:01/05/2025 Progress Notes Patient: Anthony GARCIA Ina Provider: Emery Gabriel MD :1940 A ge:84 Y S ex:Male Date:01/05/2025 Address:[address] [facility] Subjective: * Chief Complaints: * 3 weekAccompanied [...] with food Orally Once a day Nystatin 928805 UNIT/GM Cream APPLY DAILY TO SKIN TO [...] food Orally Once a day Taking Nystatin 507524 UNIT/GM Cream APPLY DAILY TO SKIN TO [...] MD Date: Generated for Gautam oh/Isaac/Editting on: 03/27/2024 12:37 [...]
--- NOTE | 2025-01-25 10:35 | CA_ITS ---
Transthoracic Echocardiogram Patient (Last, First, Middle): Anthony Goodman C Gender: Male Date of : 1940 Age: 84 Procedure Date: 01/25/2025 Procedure Type: Transthoracic Echocardiogram Location: OP Height: 182.88 cm Weight: 93.44 kg BSA: 2.16 m2 Heart Rate: bpm BP: 118 / 69 mmHg Train Braker: ANGEL Referring MD: Darryl Padilla MD Symptoms: I48.21 - Permanent atrial fibrillation Study Quality: Adequate ECG Rhythm: Atrial Fibrillation Conclusions: - The left ventricular systolic function is normal. The calculated ejection fraction is 61% by biplane method. - Moderately increased right ventricular cavity size. - The left atrium is moderately dilated. - No obvious valvular pathology seen on this study. 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 Findings Left Ventricle Normal left ventricular cavity size. There is mildly increased left ventricular wall thickness. The left ventricular systolic function is normal. The calculated ejection fraction is 61% by biplane method. There is no evidence of regional wall motion abnormalities. Diastolic function is indeterminate on the basis of available data. Right Ventricle Moderately increased right ventricular cavity size. There is normal right ventricular systolic function. Atria The left atrium is moderately dilated. The right atrium is mildly dilated. Aortic Valve There is a normal trileaflet aortic valve. There is no aortic valve stenosis. There is no aortic valve regurgitation. Mitral Valve The mitral valve appears normal. There is mild mitral annular calcification. There is trace mitral valve regurgitation. There is no mitral valve stenosis. Pulmonic Valve The pulmonic valve is likely normal. Tricuspid Valve There is mild tricuspid valve regurgitation. There is no evidence of pulmonary hypertension. Great Vessels The aortic arch is normal in size. 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 Venous The inferior vena cava is normal in size and collapses greater than 50% with inspiration. Pericardium/Pleural There is no evidence of pericardial effusion. Prior Study Comparison No significant change compared to prior study dated: 02/13/2023. Recommendations, Care & Conclusions No obvious valvular pathology seen on this study. Measurements 2D Linear Measurements IVSd: 1.22 0.6-0.9/0.6-1.0 cm LVIDd: 5.13 3.9-5.3/4.2-5.9 cm LVIDd Index: 2.38 2.4-3.2/2.2-3.1 cm/m2 LVIDs: 3.27 2.0-3.6 cm LVPWd: 1.16 0.7-1.1 cm LA Diam: 4.80 2.7-3.8/3.0-4.0 cm LAIDs Index: 2.22 1.5-2.3 cm/m2 LV Mass: 300.10 67-162/88-224 g LV Mass Index: 138.94 43-95/49-115 g/m2 LVOT Diam: 2.20 3.0+(-)1.3 cm 2D Systolic Function EF 4C: 64.00 >55% EF 2C: 61.10 >55% EF BiP: 61.10 >55% Mitral Valve MV Pk E: 0.91 MV Decel Time: 260.00 E'Lateral: 7.53 E'Medial: 3.70 E/E' Med: 24.70 E/E' Lat: 12.10 PHT: 76.00 MVA PHT: 2.89 Decel Merrick: 3.53 Aortic Valve AoV Pk Andrew: 1.27 AoV Mn Andrew: 0.91 AoV VTI: 0.35 AoV Pk Grad: 6.00 Aov Mn Grad: 4.00 CHRISTA Cont.VTI: 2.76 LVOT LVOT Pk Andrew: 0.98 LVOT Mn Andrew: 0.66 LVOT VTI: 0.25 LVOT Pk Grad: 4.00 LVOT Mn Grad: 2.00 LVOT Diam: 2.20 LVOT Area: 3.80 Diastolic Function MV Pk E: 0.91 E'Medial: 3.70 E/E' Med: 24.70 E' Laterial: 7.53 E/E' Lat: 12.10 Right Ventricle TAPSE (mm): 25.40 TVS' Andrew: 14.00 Tricuspid Valve TR Pk Andrew: 2.81 TR Pk Grad: 32.00 RA Press: 3.00 RVSP: 35.00 Great Vessels Aorta Sinus of Valsalva: 4.36 2.0-3.[address] Ridge: 2.89 1.7-3.4 cm Ao Asc: 4.00 2.1-3.4 cm Ao Arch: 3.10 Pulmonary Veins Pulm Vein S/D 0.60 Updated in Other Vendor System with Status of Final Todd Chacko MD electronically signed on 01/26/2025 8:49:23 AM with status of Final
--- OUTSIDE RECORDS SUMMARY | 2025-01-25 12:37 | XMS_ITS | Patient Health Record ---
Author Organization [facility] Address [address] [place] [address] Care Team Providers Care Survey Operations Director Name Role Phone Jordan Gabriel MD Primary Care Provider Patito Carpenter Unavailable [phone] Allergies No Known Allergies Results Component Value Reference Range Notes Glucose, Whole Blood Reviewed date:07/25/2024 10:07:32 PM Interpretation: Performing Lab:[facility], [address] [place] [phone] Notes/Report: Glucose, Whole Blood 101 60-115 mg/dL METER # : [id number] Reason For Referral No Information Medications Medication SIG (Take, Route, Frequency, Duration) Notes Start Date End Date Status Omeprazole 40 MG 1 capsule 1/2 to 1 h our before morning meal Orally Once a day; Duration: 90 days 07/23/2024 Active Vitamin B-12 100 MCG as directed Orally Active Omeprazole 20MG RX TAKE 1 CAPSULE DAILY ; Duration: 90 Active metFORMIN HCl 500 MG 1 [...] Active Omeprazole 20MG TAKE 1 CAPSULE DAILY ; Duration: 90 Active Multi Vitamin/Minerals 1 1 tablet Orally once a day Active Immunizations Vaccine Route Administration Date Status Comme nts Flu vaccine no Preserv 3 and > Unknown 11/24/2015 Admin istered Influenza Unknown 11/24/2019 Administered Influenza Unknown 11/23/2020 Administered Influenza Unknown 01/07/2024 Administered Problems Problem Type SNOMED Code ICD Code Onset Dates Problem Status W/U Status Risk Notes Problem Screening for malignant neoplasm of colon (556810424) Encounter for screening for malignant neoplasm of colon (Z12.11) Active confirmed Problem History of adenomatous polyp of colon (768385786) History of adenomatous polyp of colon (Z86.010) Active confirmed Problem Screening for malignant neoplasm of rectum (400236239) Encounter for screening for malignant neoplasm of rectum (Z12.12) Active confirmed Problem Dysphagia (99377070) Dysphagia (R13.10) Active confirmed Problem Iron deficiency anemia (61608409) Iron deficiency anemia (D50.9) Active confirmed Problem Gastric polyp (03937445) Gastric polyp (K31.7) Active confirmed Problem History of polyp of colon (situation) (440005594) Hx of colonic polyps (Z86.010) Active confirmed Problem Long-term current use of anticoagulant (433189733) Long-term (current) use of anticoagulants (Z79.01) Active confirmed Problem Iron deficiency anemia (28689828) Iron deficiency anemia, unspecified iron deficiency anemia type (D50.9) Active confirmed Problem Stricture of esophagus (74641697) History of esophageal stricture (Z87.19) Active confirmed Problem Esophageal reflux finding (768875118) Gastroesophageal reflux (K21.9) Active confirmed Problem Diverticulosis of sigmoid colon (067200036) Diverticulosis of sigmoid colon (K57.30) Active confirmed [...] N/A Encounters Encounter Location Date Provider Diagnosis [facility] Outpatient [address] [place] [id number] 07/23/2024 Patito Andrews Esophageal stricture K22.2 and Hiatal hernia K44.9 [facility] [address] [place] [address] 07/01/2024 Patito Andrews Dysphagia R13.10 ; History of esophageal stricture Z87.19 and Gastroesophageal reflux K21.9 [facility] [address] [place] [address] 06/01/2024 Patito Andrews [facility] [address] [place] [address] 07/23/2024 Patito Andrews Assessments Encounter Date Diagnosis [...] OF [place] [address] [place] [address] [id number] PATITO BUSTILLO Self - patient is the insured [employer] CLAIMS [address] [place] [id number] KENYPATITO AYERS Self - patient is the insured Medical (General) History Medical History History ICD Code Larger tubular adenoma with dysplasia re moved in 11/2008 from [facility] Colonoscopy 07-06-2009--small tubular cristina nomas Hyperlipidemia EGD in 11/2008 with a small HH and gastri tis-neg. H. pylori COPD/pneumonia Denies CO,CVA,renal disease HTN Asymptomatic gallstones-this had been reviewed with him on his previous office visit in August,---he had subsequent gallstone pancreatitis and cholecystectomy as below Upper endoscopy in August with a finding of a fibrotic distal esophageal stricture that was dilated successfully with balloons Colonoscopy in August of 2012 with removal of small tubular adenomas Atrial flutter/Atrial fib--sees Dr. Hazel [place] [facility] Colonoscopy 06/2016-small tubular adenoma s [...]
--- OUTSIDE RECORDS SUMMARY | 2025-01-25 12:38 | XMS_ITS | Patient Health Record ---
Author Organization Jordan Gabriel MD Address [address] [place] [phone] Care Team Providers Care Career Resource Specialist Name Role Phone oJrdan Gabriel Primary Care Provider Allergies No Known Allergies Results Component Value Reference Range Notes Liver Panel Reviewed date:05/12/2024 04:52:54 PM Interpretation: Performing Lab:[facility], [address] [place] [phone] Notes/Report: Bilirubin Total 0.5 0.0-1.0 mg/dL Bilirubin Direct 0.2 0.0-0.5 mg/dL Aspartate Amino Transferase 28 5-37 U/L Alanine Aminotransferase 18 0-40 U/L Total Protein 7.1 6.5-8.0 g/dL Albumin Level 4.0 3.5-5.0 g/dL Alkaline Phosphatase 72 39-117 U/L Glucose Fasting Reviewed date:05/12/2024 04:53:04 PM Interpretation: Performing Lab:[facility], [address] [place] [phone] Notes/Report: Glucose Fasting 95 60-99 mg/dL Lipid Panel with Reflex Reviewed date:05/12/2024 04:53:13 PM Interpretation: Performing Lab:[facility], [address] [place] [phone] Notes/Report: Triglycerides 71 <150 mg/dL Desirable Triglyceride: [...] A1c Reviewed date:05/12/2024 12:07:37 PM Interpretation: Performing Lab:[facility], [address] [place] [phone] Notes/Report: Hemoglobin A1c % 6.0 <6.0 % [...] average glucose, using the formula of the M3Y-Daxylbv Average Glucose study (ADAG), Diabetes Care, Vol.31,#8, 2007 Potassium Reviewed date:10/09/2024 12:34:47 PM Interpretation: Performing Lab:[facility], [address] [place] [phone] Notes/Report: Potassium 5.0 3.3-5.1 mmol/L Complete Blood Count Auto Di ff Reviewed date:11/10/2024 04:43:39 PM Interpretation: Performing Lab:[facility], [address] [place] [phone] Notes/Report: White Blood Count 14.2 4.8-10.8 X10*3/uL [...] NRBC Abs Auto 0.000 0.0-0.012 X10*3/uL Comprehensive [place]. Panel Fa st Reviewed date:12/08/2024 12:40:38 PM Interpretation:12-08-2024 Performing Lab:[facility], [address] [place] [phone] Notes/Report: Sodium 136 135-145 mmol/L Potassium 4.7 [...] PROFILE Reviewed date:11/10/2024 12:58:08 PM Interpretation: Performing Lab:[facility], [address] [place] [phone] Notes/Report: Iron 49 45-160 mcg/dL Total Iron Binding Capacity 282 228-428 mcg/dL Percent Iron Saturation 17 15-50 % Unsaturated Iron Binding 233 Lipid Panel Reviewed date:11/10/2024 12:57:18 PM Interpretation: Performing Lab:[facility], [address] [place] [phone] Notes/Report: Triglycerides 81 <150 mg/dL Desirable Triglyceride: [...] (Free>4and<10) Reviewed date:11/10/2024 01:00:52 PM Interpretation: Performing Lab:[address] [phone] Notes/Report: PSA,Total (Free>4and<10) 2.37 0.00-4.00 ng/mL A [...] Random Reviewed date:11/10/2024 04:33:57 PM Interpretation: Performing Lab:[address] [phone] Notes/Report: Creatinine Urine 44.71 Microalbumin Urine 9.0 Microalbum/Creatinine Ratio Ur 20.1 <30 ug/mg cr Albumin/Creatinine Ratio Reference Ranges: Normal: < 30 ug/mg creatinine Microalbuminuria: 30 - 300 ug/mg creatinine Clinical Albuminuria: > 300 ug/mg creatinine Hemoglobin A1c Reviewed date:11/10/2024 12:57:28 PM Interpretation: Performing Lab:[address] [phone] Notes/Report: Hemoglobin A1c % 6.5 <6.0 % [...] average glucose, using the formula of the L9W-Xztkojo Average Glucose study (ADAG), Diabetes Care, Vol.31,#8, Oct. 2007 UA ClnCatch+Micro w/rflx Cul t Reviewed date:11/11/2024 12:30:51 PM Interpretation: Performing Lab:[address] [phone] Notes/Report: Urine, Clean Catch Color Urine Yellow Appearance Urine Clear PH 5.5 5.0-9.0 Glucose Urine UA Negative Negative mg/dL Urine Blood Negative Negative Specific [place] - Urine 1.010 1.005-1.025 Urine Protein Negative Neg-Trace mg/dL Urine Ketones Negative Negative mg/dL Nitrite Urine Negative Negative Leukocyte Esterase Urine Trace Negative RBC Urine 0-2 0-2 /HPF WBC Urine 0-5 0-5 /HPF Squamous Epithelial Cell Urine 0-2 0-2 /HPF Bacteria Urine None Seen None Seen Hyaline Casts Urine 0-2 0-2 /LPF Blood Urea Nitrogen Reviewed date:11/24/2024 01:52:49 PM Interpretation: Performing Lab:[facility], [address] [place] [phone] Notes/Report: Blood Urea Nitrogen 21 9-16 mg/dL Creatinine Reviewed date:11/24/2024 01:52:40 PM Interpretation: Performing Lab:[address] [phone] Notes/Report: Creatinine 1.37 0.5-1.4 mg/dL Estimated Glomerular Filt Rate 50 Chronic Kidney Disease: Estimated GFR < 60 mL/min/1.73m2 Severe Kidney Disease: Estimated GFR < 15 mL/min/1.73m2 XR foot RT 2V Reviewed date:11/17/2024 04:42:26 PM Interpretation: Performing Lab: Notes/Report: [address] [address] XRay Report Signed Patient: Anthony Goodman MR#: [id number] : 1940 Acct:[id number] Age/Sex: 84 / M ADM Date: 11/17/24 Loc: HO.XRAY Attending Dr: Jordan Gabriel MD Ordering Physician: Jordan Gabriel MD Date of Service: 11/17/24 Procedure(s): XR foot RT 2V Accession Number(s): [id number] cc: Jordan Gabriel MD EXAMINATION: XR FOOT [...] 11/17/24 1137 DD/ 1115 TD/TT: 11/17/24 1123 Prime Minister: [place] [address] XRay Report Signed Patient: Anthony Goodman MR#: [id number] : 1940 Acct:[id number] Age/Sex: 84 / M ADM Date: 11/17/24 Loc: HO.XRAY Attending Dr: Jordan Gabriel MD Ordering Physician: Jordan Gabriel MD Date of Service: 11/17/24 Procedure(s): XR fernanda t RT 2V Accession Number(s): [id number] cc: Jordan Gabriel MD EXAMINATION: XR FOOT [...] 11/17/24 1137 DD/ 1115 TD/TT: 11/17/24 1123 Prime Minister: Complete Blood Count no Diff Reviewed date:02/04/2024 01:50:25 PM Interpretation: Performing Lab:[facility], [address] [place] [phone] Notes/Report: White Blood Count 7.2 4.8-10.8 X10*3/uL [...] Panel Reviewed date:02/04/2024 01:50:04 PM Interpretation: Performing Lab:[facility], [address] [place] [phone] Notes/Report: Sodium 138 135-145 mmol/L Potassium 4.9 [...] Ferritin Reviewed date:02/04/2024 12:53:47 PM Interpretation: Performing Lab:[facility], [address] [place] [phone] Notes/Report: Ferritin 21 20-250 ng/mL Lactate Dehydrogenase Reviewed date:02/04/2024 12:50:52 PM Interpretation: Performing Lab:[facility], [address] [place] [phone] Notes/Report: Lactate Dehydrogenase 155 118-273 U/L Complete Blood Count Auto Di ff Reviewed date:04/07/2024 05:05:38 PM Interpretation: Performing Lab:[facility], [address] [place] [phone] Notes/Report: White Blood Count 7.3 4.8-10.8 X10*3/uL [...] Ferritin Reviewed date:04/07/2024 04:41:39 PM Interpretation: Performing Lab:[facility], [address] [place] [phone] Notes/Report: Ferritin 30 20-250 ng/mL Lactate Dehydrogenase Reviewed date:04/07/2024 05:05:11 PM Interpretation: Performing Lab:[facility], [address] [place] [phone] Notes/Report: Lactate Dehydrogenase 165 118-273 U/L Hold Gold Reviewed date:05/12/2024 12:08:08 PM Interpretation: Performing Lab:[facility], [address] [place] [phone] Notes/Report: Hold Gold See Note Specimen held untested for 24 hours; Call to request Chemistry testing. 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; Jordan Gabriel MD Report Number: [id number]: Total DLP = 168.00 mGy-cm EXAMINATION: CT [...] by: Oseas Wallace MD 05/13/2024 11:42 AM [facility] Dictated By: Oseas Wallace MD Signed By: <Electronically signed by Oseas Wallace MD in OV> 05/13/24 1142 DD/ 1109 TD/TT: 05/13/24 1119 Prime Minister: [place] [address] CT Scan Report Signed Patient: Anthony Goodman Sr MR#: [id number] : 1940 Acct:[id number] Age/Sex: 84 / M ADM Date: 05/13/24 Loc: HO.CT Attending Dr: Jannet Evans NP Ordering Physician: JANNET EVANS NP Date of Service: 05/13/24 Procedure(s): CT [facility] wo IV con Accession Number(s): [id number] cc: JANNET EVANS NP ; Jordan Gabriel MD Report Number: [id number]: Total DLP = 168.00 mGy-cm EXAMINATION: CT [...] by: Oseas Wallace MD 05/13/2024 11:42 AM [facility] Dictated By: Oseas Wallace MD Signed By: <Electronically signed by Oseas Wallace MD in OV> 05/13/24 1142 DD/ 1109 TD/TT: 05/13/24 1119 Prime Minister: Complete Blood Count no Diff Reviewed date:07/07/2024 11:32:23 AM Interpretation: Performing Lab:[address] [address] Notes/Report: White Blood Count 6.7 4.8-10.8 X10*3/uL [...] Panel Reviewed date:07/07/2024 11:32:43 AM Interpretation: Performing Lab:[address] [phone] Notes/Report: Sodium 138 135-145 mmol/L Potassium 4.6 [...] Ferritin Reviewed date:07/07/2024 11:31:21 AM Interpretation: Performing Lab:[address] [phone] Notes/Report: Ferritin 45 20-250 ng/mL SARS-CoV2/FLU/RSV Reviewed date:07/13/2024 04:20:38 PM Interpretation: Performing Lab:[address] [address] Notes/Report: Influenza A PCR NEGATIVE Negative Influenza [...] by authorized laboratories. Testing performed on the [employer] GeneXpert utilizing real-time RT-PCR. All SARS CoV2 and positive influenza A/B results are reported to [facility]. XR chest 2V Reviewed date:07/13/2024 04:21:30 PM Interpretation: Performing Lab: Notes/Report: [facility] [address] [place] [address] XRay Report Signed Patient: Anthony Goodman Sr MR#: [id number] : 1940 Acct:[id number] Age/Sex: 84 / M ADM Date: 07/11/24 [facility] Att[facility] Dr: Awilda ARTIS Ordering Physician: Awilda Lozoya Date of Service: 07/11/24 Procedure(s): XR chest 2V Accession Number(s): [id number] cc: Jordan Gabriel MD; Awilda Lozoya CLINICAL [...] 07/11/24 1036 DD/ 1035 TD/TT: 07/11/24 1035 Prime Minister: [facility] [address] [place] [address] XRay Report Signed Patient: Anthony Goodman Sr MR#: [id number] : 1940 Acct:[id number] Age/Sex: 84 / M ADM Date: 07/11/24 [facility] Attending Dr: Geoffrey ARTIS Ordering Physician: Awilda Lozoya Date of Service: 07/11/24 Procedure(s): XR [facility] 2V Accession Number(s): [id number] cc: Jordan Gabriel MD; Awilda Lozoya CLINICAL [...] 07/11/24 1036 DD/ 1035 TD/TT: 07/11/24 1035 Prime Minister: Glucose, Whole Blood Reviewed date:07/23/2024 02:25:52 PM Interpretation: Performing Lab:[facility], [address] [place] [phone] Notes/Report: Glucose, Whole Blood 101 60-115 mg/dL METER # : [id number] Complete Blood Count Auto Di ff Reviewed date:10/06/2024 05:13:16 PM Interpretation: Performing Lab:[facility], [address] [place] [phone] Notes/Report: White Blood Count 7.4 4.8-10.8 X10*3/uL [...] Panel Reviewed date:10/06/2024 03:35:55 PM Interpretation: Performing Lab:[facility], [address] [place] [phone] Notes/Report: Sodium 142 135-145 mmol/L Potassium 5.4 [...] Ferritin Reviewed date:10/06/2024 12:19:56 PM Interpretation: Performing Lab:[facility], [address] [place] [phone] Notes/Report: Ferritin 28 20-250 ng/mL Haptoglobin Reviewed date:10/06/2024 12:19:09 PM Interpretation: Performing Lab:[facility], [address] [place] [phone] Notes/Report: Haptoglobin 200 40-268 mg/dL US venous duplex LE LT Reviewed date:11/02/2024 11:56:32 AM Interpretation: Performing Lab: Notes/Report: [address] [address] Ultrasound Report Signed Patient: Anthony Goodman Sr MR#: [id number] : 1940 Acct:[id number] Age/Sex: 84 / M ADM Date: 11/02/24 Loc: HO.US Attending Dr: Jordan Gabriel MD Ordering Physician: Jordan Gabriel MD Date of Service: 11/02/24 Procedure(s): US venous duplex LE LT Accession Number(s): [id number] cc: Jordan Gabriel MD EXAMINATION: US LOWER [...] 11/02/24 1128 DD/ 1106 TD/TT: 11/02/24 1114 Prime Minister: [address] [address] Ultrasound Report Signed Patient: Anthony Goodman Sr MR#: [id number] : 1940 Acct:[id number] Age/Sex: 84 / M ADM Date: 11/02/24 Loc: .US Attending Dr: Jordan Gabriel MD Ordering Physician: Jordan Gabriel MD Date of Service: 11/02/24 Procedure(s): US christopher ous duplex LE LT Accession Number(s): [id number] cc: Jordan Gabriel MD EXAMINATION: US LOWE [...] 11/02/24 1128 DD/ 1106 TD/TT: 11/02/24 1114 Prime Minister: Reason For Referral Reason please frederick tovar [...] Fe) MG 1 tablet Orally BID Active Benadryl Allergy 25 MG 1 tablet as neede d Orally every 8 hrs Not-Taking metFORMIN HCl 500 MG TAKE 1 TABLET BY [facility] TWICE A DAY WITH MEALS Active FreeStyle Lite 0 as directed invitro DX: E 11.9 once a day for 30 days 01/17/2016 Active FreeStyle Lite Test 0 as directed In Vit ro DX: E 11.9 use tot test blood sugar once a day for 30 days 01/17/2016 Active Symbicort 160-4.5 MCG/ACT 2 puffs Inhala tion twice a day for 30 days 01/05/2025 Active Omeprazole 20 MG 1 capsule Orally Onc e a day Active Furosemide 20 MG 1 tablet Orally Once a day for 90 days 12/08/2024 Active Metoprolol Succinate ER 25 MG 1 tablet Orally Once a day for 30 days 11/17/2024 Active Xarelto 20 MG 1 tablet with food Orally Once a day Active Nystatin 543972 UNIT/GM APPLY DAILY TO S KIN TO AFFECTED AREA TWICE A DAY FOR 2 WEEKS for 15 Active Albuterol Sulfate HFA 108 (90 Base) MCG/ACT 1 puff as needed Inhalation every 4 hrs 04/13/2022 Active predniSONE 10 MG 1 tablet with food o r milk Orally 4 tabs for 3 days,3tabs for 3 days, 2 tabs for 3 days, and 1 tab for 3 days for 14 days 07/24/2024 Not-Taking Lisinopril 20 MG TAKE 1 TABLET BY JANETH TH EVERY DAY Active Ventolin HFA 108 (90 Base) MCG/ACT 2 puffs as needed Inhalation every 4 hrs Not-Owen tinoco Albuterol Sulfate HFA 108 (90 Base) MCG/ACT 1 puff as needed Inhalation every 4 hrs 12/08/2024 Active Symbicort 160-4.5 MCG/ACT 2 puffs Inhala tion Twice a day for 30 days 11/14/2017 Not-[place] Immunizations Vaccine Route Administration Date Status Comme nts Flu Vaccine Unknown 01/10/2012 Administered given at [facility] PPSV23 (Pnemovax) Unknown 01/10/2012 Administered given at [facility] Flu Vaccine Unknown 01/07/2014 Administered Flu Vaccine Unknown 12/31/2013 Administered received at [facility] Prevnar 13 IM Intramuscular 08/20/2014 Administered Flu Vaccine IM Intramuscular 12/22/2014 Administered pt re cieved high dose flu vaccine at [facility] in [place], Fluarix Quadrivalent Unknown 12/21/2015 Administered Wa jair's at [facility] Unknown 01/26/2015 Administered [facility] Fluarix Quadrivalent IM Intramuscular 12/06/2016 Administe red PPSV23 (Pnemovax) IM Intramuscular 04/15/2017 Administered Influenza High Dose Unknown 12/17/2017 Administered [facility] Fluarix Quadrivalent IM Intramuscular 12/19/2018 Administe red pt was given the vaccine at [facility] in [place]. Influenza High Dose IM Intramuscular 12/04/2019 Administer [...] Problem Status W/U Status Risk Notes Problem 72883073 Type 2 diabetes mellitus without complications (E11.9) Active confirmed Problem Atrial fibrillation (68941690) Atrial fibrillation (I48.91) Active confirmed Problem Gout attack (722638229) Gout attack (M10.9) Active confirmed Problem 760779531 Paroxysmal atria l fibrillation (I48.0) Active confirmed Problem 8063484 Panlobular emphy sema (J43.1) Active confirmed Problem 10509679 Essential hypert ension (I10) Active confirmed Problem 664503506 Low HDL (under 4 0) (E78.6) Active confirmed Problem 719304676 Lung nodule (R91.1) Active confirmed Problem 236228928 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) Active confirmed Problem Chronic obstructive pulmonary disease with acute lower respiratory infection (388953310) COPD (chronic obstructive pulmonary disease) with acute bronchitis (J44.0) Active confirmed Problem 19623534 Iron deficiency anemia, unspecified iron deficiency anemia type (D50.9) Active confirmed Problem Claudication (39611914) Claudication (I73.9) Active confirmed Problem 337387230 Adenoma (D36.9) Active confirmed Problem 8151657646405738 Acute idiopathi c gout involving toe of left foot (M10.072) Active confirmed Problem 09672342 Lymphadenopathy, mediastinal (R59.0) Active confirmed Problem 515950357 Rising PSA level (R97.20) Active confirmed Problem 709858682 History of calcu leonard of gallbladder (Z87.19) Active confirmed Problem 352092030 Pure hypercholesterolemia (E78.00) Active confirmed Problem Gout (14013059) Acute gout of le ft foot, unspecified cause (M10.9) Active confirmed Problem 25644531 Hip arthritis (M16.10) Active confirme d Problem 764888943 Adenocarcinoma o f lung, 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) Active confirmed Problem 442553056 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 Problem 297925205 Esophageal dysfu nction (K22.4) Active confirmed Problem 076071808 Lower esophageal ring (Schatzki) (K22.2) Active confirmed Vital Signs Heart Rate 60 /min 01/05/2025 weight is up 5 pounds since 12-08-24 Blood pressure diastolic 42 mm Hg 01/05/2025 alice ght is up 5 pounds since 12-08-24 Height 71 in 01/05/2025 weight is up 5 pounds since 12-08-24 Blood pressure systolic 138 mm Hg 01/05/2025 weig ht is up 5 pounds since 12-08-24 Weight 208 lbs 01/05/2025 weight is up 5 pounds since 12-08-24 BMI 29.01 kg/m2 01/05/2025 weight is up 5 pounds since 12-08-24 Encounters Encounter Location Date Provider Diagnosis Jordan Gabriel MD [address] [place] [id number] 05/12/2024 Jordan Gabriel Type 2 diabetes mina itus without complications E11.9 and Pure hypercholesterolemia E78.00 Jordan Gabriel MD [address] [place] [address] Drive [address] [place] [id number] 10/09/2024 Jordan Gabriel Hyperkalemia E87.5 Jordan Gabriel MD [address] [place] [id number] 11/10/2024 Jordan Gabriel Type 2 diabetes mina itus without complications E11.9 ; Pure hypercholesterolemia E78.00 ; Rising PSA level R97.20 ; Iron deficiency anemia, unspecified iron deficiency anemia type D50.9 and Essential hypertension I10 Jordan Gabriel MD [address] [place] [id number] 11/24/2024 Jordan Gabriel Paroxysmal atrial fibrillation I48.0 Jordan Gabriel MD [address] [place] [id number] 11/24/2024 Jordan Gabriel Encounter for administration of vaccine Z23 Jordan Gabriel MD [address] [place] [id number] 05/19/2024 Jordan Gabriel Encounter for genera l adult medical examination with abnormal findings Z00.01 ; Esophageal dysfunction K22.4 ; Pure hypercholesterolemia E78.00 and Type 2 diabetes mellitus without complications E11.9 Jordan Gabriel MD [address] [place] [id number] 07/24/2024 Jordan Gabriel Gout attack M10.9 Jordan Gabriel MD [address] [place] [id number] 11/02/2024 Jordan Gabriel Gout attack M10.9 an d Leg edema R60.0 Jordan Gabriel MD [address] [place] [id number] 11/09/2024 Jordan Gabriel Gout attack M10.9 an d Leg edema R60.0 Jordan Gabriel MD [address] [place] [id number] 11/17/2024 Jordan Gabriel Foot pain, right M79 .671 ; Paroxysmal atrial fibrillation I48.0 ; Elevated BUN R79.9 ; Type 2 diabetes mellitus without complications E11.9 ; Pure hypercholesterolemia E78.00 ; Essential hypertension I10 ; Iron deficiency anemia, unspecified iron deficiency anemia type D50.9 and COPD (chronic obstructive pulmonary disease) with acute bronchitis J44.0 Jordan Gabriel MD [address] [place] [id number] 12/08/2024 Jordan Gabriel Panlobular emphysema J43.1 ; Atrial fibrillation I48.91 and Edema R60.9 Jordan Gabriel MD [address] [place] [id number] 01/05/2025 Jordan Gabriel Paroxysmal atrial fibrillation I48.0 ; Essential hypertension I10 ; COPD (chronic obstructive pulmonary disease) with acute bronchitis J44.0 and Edema R60.9 Jordan Gabriel MD [address] [place] [id number] 07/17/2024 Jordan Gabriel MD [address] [place] [id number] 09/08/2024 Jordan Gabriel Assessments Encounter Date Diagnosis [...] being done today 11-02-2024 at 11am at [facility] , pending diagnostic testing 11/09/2024 Gout attack [...] use 12/08/2024 Atrial fibrillation (ICD-10 - I48.91) 01/05/2025 Paroxysmal atrial fibrillation (ICD-10 - I48.0) has had a recent holter. is going to see dr padilla soon, will continue current regiment 01/05/2025 Essential hypertensi on (ICD-10 - I10) well controlled at present, will continue current regiment 05/12/2024 Pure hypercholesterolemia (ICD-10 - E78.00) 11/10/2024 [...] directions for use, will continue to monitor 01/05/2025 COPD (chronic obstructive pulmonary disease) with acute bronchitis (ICD-10 - J44.0) stable, will continue current regiment 11/10/2024 Rising PSA level (ICD-10 - R97.20) 05/19/2024 Type 2 diabetes mellitus without complications (ICD-10 - E11.9) 11/17/2024 Type 2 diabetes mellitus without complications (ICD-10 - E11.9) stable, will cntonue current regiment 01/05/2025 Edema (ICD-10 - R60.9) will continue current regiment 11/10/2024 Iron deficiency anem ia, [...] Provider Name:Jordan Cyr ier, 03/09/2025 03:00:00 PM, [address] [place] [address], [address], [place], [place], [id number], Provider Name:Jordan Cyr ier, 05/21/2025 01:45:00 PM, [address] [place] [address], Suite [facility], [place], [place], [phone], Provider Name:Jordan Cyr ier, 11/15/2025 07:15:00 AM, [address] [place] [address], Suite [facility], [place], [place], [phone], Provider Name:Jordan Cyr ier, 11/22/2025 10:30:00 AM, [address] [place] [address], [address], [place], [place], [phone], Insurance Providers Payer Name Payer Address Payer Phone Subscriber Number Group Number Insured Name Patient Relationship to Insured Coverage Start Date Coverage End Date [employer] [address] [place] [address] [id number] Anthony Goodman Self - patient is the insured [employer] [address] [place], [place] [id number] Anthony Goodman Self - patient is [...]
== END ==
LOC: HO.CARD 10:28
PROVIDERS: PCP Internal Medicine; Visit Provider Internal Medicine Cardiovascular Disease
DX: I48.21 Permanent atrial fibrillation (principal)
CPT/HCPCS: 93306

== ENCOUNTER → 2025-01-25 10:35 | Outpatient (BNV) | payer MEDICARE, SELFPAY | PROVIDERS: PCP Internal Medicine; Visit Provider Internal Medicine | DX: I51.7 Cardiomegaly (principal); I77.810 Thoracic aortic ectasia; I34.81 Nonrheumatic mitral (valve) annulus calcification; I36.1 Nonrheumatic tricuspid (valve) insufficiency | CPT/HCPCS: 93306 ==

== ENCOUNTER 2025-02-10 13:21 | Outpatient (REF) | payer MEDICARE, SELFPAY ==
--- NOTE | ~2025-02-10 | XR_ITS ---
EXAMINATION: XR CHEST CLINICAL INFORMATION: I48.21 - Permanent atrial fibrillation. History of treatment for lung carcinoma. Right upper lobe resection. The left upper lobe wedge resection. COMPARISON: Radiographs on July 11, 2024.. Chest CT on May 13, 2024. TECHNIQUE: 2 views of the chest were obtained. FINDINGS: Postoperative changes in bilateral lungs. No confluent consolidation. Linear atelectasis in the right lung base is unchanged. Cardiomediastinal silhouette is unchanged from prior study. Left atrial appendage clip in place. Surgical sutures project over the right perihilar region. No acute bone abnormality. Status post sternotomy. XR/XR chest 2V IMPRESSION: No acute cardiopulmonary process. Electronically signed by: Luci Malone MD 02/10/2025 02:47 PM ASHLEY
[2025-02-10 15:31] LABS: Alanine Aminotransferase 22 U/L (0-40); Albumin Level 4.3 g/dL (3.5-5.0); Alkaline Phosphatase 75 U/L (39-117); Aspartate Amino Transferase 24 U/L (5-37); Total Protein 7.2 g/dL (6.5-8.0)
[2025-02-10 21:14] LABS: NT Pro B Type Natriuretic Pept 1725.1 pg/mL (<300)
== END 2025-02-10 13:22 | disposition home or self-care (01) ==
LOC: HO.XRAY 13:21
PROVIDERS: PCP Internal Medicine; Visit Provider Internal Medicine Cardiovascular Disease
DX: I48.21 Permanent atrial fibrillation (principal); I25.10 Atherosclerotic heart disease of native coronary artery without angina pectoris; I50.30 Unspecified diastolic (congestive) heart failure; I11.0 Hypertensive heart disease with heart failure; Z85.118 Personal history of other malignant neoplasm of bronchus and lung; Z79.01 Long term (current) use of anticoagulants; Z79.899 Other long term (current) drug therapy; Z87.891 Personal history of nicotine dependence
CPT/HCPCS: 36415; 71046; 80076; 83880; 84443; 93005; 99212

== ENCOUNTER 2025-02-10 13:21 | Outpatient (AMB) | payer MEDICARE, SELFPAY ==
--- OUTSIDE RECORDS SUMMARY | 2024-07-23 09:20 | XMS_ITS ---
Author Organization [facility] Address [address] [place] [address] Care Team Providers Care Philatelic Consultant Name Role Phone Jordan Gabriel MD Primary Care Provider Patito Carpenter Unavailable [phone] REASON FOR VISIT gerd,hx esophageal stricture,dysphagia Encounters Encounter Location Date Provider Diagnosis [facility] Outpatient [address] [place] [address] [place] [phone] 07/23/2024 Patito Andrews Esophageal strictu re K22.2 and Hiatal hernia K44.9 Assessments Encounter Date Diagnosis (ICD Code) Assessment Notes Treatment Notes Treatment Clinical Notes Section Notes 07/23/2024 Esophageal stricture (ICD-10 - K22.2) 07/23/2024 Hiatal hernia (ICD-10 - K44.9) Plan Of Treatment No Information Progress Notes * PATITO BUSTILLO CDOB:1939 (84 yo M)Acc No.[id number]:07/23/2024 EGD/MAC Patient: Carlota BRICENO PATITO Buckley Provider: Jose Francisco Andrews MD :1940 A ge:84 Y S ex:Male Date:07/23/2024 Address: [id number] Pcp:Jordan Gabriel MD Subjective: * Chief Complaints: * G erd,hx esophageal stricture,dysphagia Assessment: * Assessment: 1. E sophageal stricture - K22.2 (Primary) 2 . H iatal hernia - K44.9 ? Plan: * Procedure Codes: 4 3249 ESOPH ENDOSCOPY, DILATION Billing Information: * Procedure Codes: 56038 ESOPH ENDOSCOPY, DILATION. * The named appointment provid er may or may not be the originator of this progress note, and it is not deemed complete until electronically signed by the appointment provider. Sign off status: Pending * Provider: Jose Francisco Andrews MD Date: 0 07/23/2024 Generated for Gautam oh/Isaac/Editting on: 04/13/2024 01:16 AM EST
--- OUTSIDE RECORDS SUMMARY | 2024-09-08 05:04 | XMS_ITS ---
Author Organization Jordan Gabriel MD Address [address] [place] [phone] Support Name Relationship Address Phone Nery Jordan Caregiver [address] [facility] [address] [place] [phone] JEFFERY HUSTON Caregiver [address] [place] [phone] Alfred Pierre Caregiver [address] [facility] [address] [place] [phone] Anthony Andrews Caregiver [address] [facility] [address] [place] [phone] Erickson Payton Caregiver [address] [place] [phone] Cr Foley Caregiver [address] [facility] [address] [place] [phone] Darryl Padilla Caregiver [address] [place] [phone] Vicente Leigh Caregiver [address] [facility] [address] [place] [phone] Unavailable Emergency Contact Unknown Anthony Goodman Guarantor Unknown Care Team Providers Care Clinical Rehabilitation Specialist Name Role Phone Jordan Gabriel Primary Care Provider REASON FOR VISIT Ct Chest due Encounters Encounter Location Date Provider Diagnosis Jordan Gabriel MD [address] [facility] [address] [place] [phone] 09/08/2024 Jordan Gabriel Plan Of Treatment Next Appt Details Provider Name:Jordan Cyr ier, 03/09/2025 03:00:00 PM, [address] [facility] [address], [place], [place], [phone], Provider Name:Jordan Cyr ier, 05/21/2025 01:45:00 PM, [address], [place], [phone], Provider Name:Jordan Cyr ier, 11/15/2025 07:15:00 AM, [address] [facility] [address], [place], [phone], Provider Name:Jordan Cyr ier, 11/22/2025 10:30:00 AM, [address] [facility] [address], [place], [place], [phone], Progress Notes * Anthony GOODMAN CDOB:1939 (84 yo M)Acc No.[id number]:09/08/2024 Patient: Anthony GARCIA :1940 A ge:84 Y S ex:Male Address: [place] [address] * true * Date: Generated for Gautam oh/Isaac/eTransmitting on: 04/13/2024 01:16 AM EST
--- OUTSIDE RECORDS SUMMARY | 2024-10-09 04:00 | XMS_ITS ---
Author Organization Jordan Gabriel MD Address [address] [place] [phone] Care Team Providers Care Cosmetic Manager Name Role Phone Nery Jordan Primary Care Provider [phone] Results Component Value Reference Range Notes Potassium Reviewed date:10/09/2024 12:34:47 PM Interpretation: Performing Lab:[facility], [address] [place] [phone] Notes/Report: Potassium 5.0 3.3-5.1 mmol/L REASON FOR VISIT Potassium Encounters Encounter Location Date Provider Diagnosis Jordan Gabriel MD [address] [place] [phone] 10/09/2024 Jordan Gabriel Hyperkalemia E87.5 Assessments Encounter Date Diagnosis (ICD Code) Assessment Notes Treatment Notes Treatment Clinical Notes Section Notes 10/09/2024 Hyperkalemia (ICD-10 - E87.5) Plan Of Treatment Next Appt Details Provider Name:Jordan Cyr yoonr, 03/09/2025 03:00:00 PM, [address] [place] [address], Suite [facility], [place], [place], [phone], Provider Name:Jordan Cyr ier, 05/21/2025 01:45:00 PM, 10 [facility], Suite [facility], [place], [place], [phone], Provider Name:Jordan nettlesr, 11/15/2025 07:15:00 AM, [address] [place] [address], Suite [facility], [place], [place], [phone], Provider Name:Jordan Cyr yoonr, 11/22/2025 10:30:00 AM, [address] [place] [address], Suite [facility], [place], [place], [phone], Progress Notes * KENYAnthony AYERS CDOB:1939 (84 yo M)Acc No.[id number]:10/09/2024 Progress Note Patient: Anthony GARCIA Provider: Emery Gabriel MD :1940 A ge:84 Y S ex:Male Date:10/09/2024 Address:[address] [place] [address] [facility] Subjective: * Chief Complaints: * 1 . Potassium. * Medical History: Objective: * Vitals: Assessment: * Assessment: 1. H yperkalemia - E87.5 (Primary) Plan: * Treatment: * Procedure Codes: 3 6415 VENIPUNCT, ROUTINE* * * The named appointment provid er may or may not be the originator of this progress note, and it is not deemed complete until electronically signed by the appointment provider. Sign off status: Pending * Provider: Emery Gabriel MD Date: 10/09/2024 Generated for Gautam oh/Isaac/Esequiel on: 1 04/13/2024 01:16 AM EST
--- OUTSIDE RECORDS SUMMARY | 2024-11-02 04:45 | XMS_ITS ---
Author Organization Jordan Gabriel MD Address [address] [place] [phone] Care Team Providers Care Business Services Vice President Name Role Phone Jordan Gabriel Primary Care Provider [phone] Allergies No Known Allergies REASON FOR VISIT [...] MG 1 tablet Orally BID Active Nystatin 032437 UNIT/GM 1 application Externally Twice a day [...] Date Provider Diagnosis Jordan Gabriel MD 10 [facility] [address] [place] [phone] 11/02/2024 Jordan Gabriel Gout attack M10.9 and Leg edema R60.0 Assessments Encounter Date Diagnosis (ICD Code) Assessment Notes Treatment Notes Treatment Clinical Notes Section Notes 11/02/2024 Gout attack (ICD-10 - M10.9) patient verbalized nderstanding of medication and directions for use 11/02/2024 Leg edema (ICD-10 - R60.0) being done today 11-02-2024 at 11am at [facility] , pending diagnostic testing Plan Of Treatment [...] being done today 10-23 at 11am at [facility] , pending diagnostic testing Pending Test Test Name Order Date US LEG LT VENOUS DOPPLER 11/02/2024 Next Appt Details Follow Up: 1 Week, Reason: Provider Name:Jordan ward, 03/09/2025 03:00:00 PM, [address] [place] [address], [address], [phone], Provider Name:Jordan wrad, 05/21/2025 01:45:00 PM, [address] [place] [address], [address], [phone], Provider Name:Jordan ward, 11/15/2025 07:15:00 AM, [address] [place] [address], [address], [phone], Provider Name:Jordan ward, 11/22/2025 10:30:00 AM, [address] [place] [address], [phone], Progress Notes * Anthony GOODMAN CDOB:1939 (84 yo M)Acc No.[id number]:11/02/2024 Progress Notes Patient: Anthony GARCIA Provider: Emery Gabriel MD :1940 A ge:84 Y S ex:Male Date:11/02/2024 Address: [place], [id number] Subjective: * Chief Complaints: * R FT [...] as needed Inhalation every 4 hrs Nystatin 076576 UNIT/GM Cream 1 application Externally Twice a [...] needed Inhalation every 4 hrs Taking Nystatin 677105 UNIT/GM Cream 1 application Externally Twice a [...] being done today 11-02-2024 at 11am at [facility] , pending diagnostic testing * Procedure Codes: * Follow Up: 1 Week * * Sign off status: Completed true * Provider: Emery Gabriel MD Date: 0 11/02/2024 Generated for Gautam oh/Isaac/Júniorsmitting on: 04/13/2024 01:17 AM EST History and Physical Notes * [...]
--- OUTSIDE RECORDS SUMMARY | 2024-11-09 06:45 | XMS_ITS ---
Author Organization Jordan Gabriel MD Address [address] [place] [address] [phone] Care Team Providers Care Coal Deliverer Name Role Phone Jordan Gabriel Primary Care [...] for 30 days 11/14/2017 Not-Guillermo ng Nystatin 030806 UNIT/GM 1 application Externally Twice a day for 14 days 04/28/2019 Active metFORMIN HCl 500 MG TAKE 1 TABLET BY [facility] TWICE A DAY WITH MEALS for 90 Active Albuterol Sulfate HFA 108 (90 Base) MCG/ACT 1 puff as needed Inhalation every 4 hrs 04/13/2022 Active Lisinopril 20 MG TAKE 1 TABLET BY [facility] EVERY DAY for 90 Active predniSONE [...] kg/m2 11/09/2024 weight is down 2 pounds [facility] e 11-02-24 Encounters Encounter Location Date Provider Diagnosis Jordan Gabriel MD [address] [facility] [address] [place] [address] [phone] 11/09/2024 Jordan Gabriel Gout attack M10.9 and [...] Provider Name:Jordan Cyr ier, 03/09/2025 03:00:00 PM, [address] [place] [address], [address], [phone], Provider Name:Jordan Cyr ier, 05/21/2025 01:45:00 PM, [address] [place] [address], [address], [phone], Provider Name:Jordan Cyr ier, 11/15/2025 07:15:00 AM, [address] [place] [address], [address], [phone], Provider Name:Jordan nettlesr, 11/22/2025 10:30:00 AM, [address] [place] [address], [address], [phone], Progress Notes * Anthony GOODMAN CDOB:1939 (84 yo M)Acc No.[id number]:11/09/2024 Patient: Anthony GARCIA Provider: Emery Gabriel MD :1940 A ge:84 Y S ex:Male Date:11/09/2024 [facility] Subjective: * Chief Complaints: * 1 week [...] as needed Inhalation every 4 hrs Nystatin 287191 UNIT/GM Cream 1 application Externally Twice a [...] needed Inhalation every 4 hrs Taking Nystatin 566645 UNIT/GM Cream 1 application Externally Twice a [...] 11/09/2024 Generated for Gautam oh/Isaac/Editting on: 1 04/13/2024 01:17 AM EST History and Physical [...]
--- OUTSIDE RECORDS SUMMARY | 2024-11-10 03:00 | XMS_ITS ---
Author Organization Jordan Gabriel MD Address [address] [place] [phone] Care Team Providers Care Printed Circuit Layout Taper Name Role Phone Jordan Gabriel Primary Care Provider [phone] Results Component Value Reference Range Notes Complete Blood Count Auto Di ff Reviewed date:11/10/2024 04:43:39 PM Interpretation: Performing Lab:[facility], [address] [place] [phone] Notes/Report: White Blood Count 14.2 4.8-10.8 X10*3/uL [...] NRBC Abs Auto 0.000 0.0-0.012 X10*3/uL Comprehensive [place]. Panel Fa st Reviewed date:12/08/2024 12:40:38 PM Interpretation:12-08-2024 Performing Lab:[facility], [address] [place] [phone] Notes/Report: Sodium 136 135-145 mmol/L Potassium 4.7 [...] PROFILE Reviewed date:11/10/2024 12:58:08 PM Interpretation: Performing Lab:[facility], [address] [place] [phone] Notes/Report: Iron 49 45-160 mcg/dL Total Iron Binding Capacity 282 228-428 mcg/d L Percent Iron Saturation 17 15-50 % Unsaturated Iron Binding 233 Lipid Panel Reviewed date:11/10/2024 12:57:18 PM Interpretation: Performing Lab:[facility], [address] [place] [phone] Notes/Report: Triglycerides 81 <150 mg/dL Desirable Triglyceride: [...] (Free>4and<10) Reviewed date:11/10/2024 01:00:52 PM Interpretation: Performing Lab:[facility], [address] [place] [phone] Notes/Report: PSA,Total (Free>4and<10) 2.37 0.00-4.00 ng/mL A [...] Random Reviewed date:11/10/2024 04:33:57 PM Interpretation: Performing Lab:[address] [phone] Notes/Report: Creatinine Urine 44.71 Microalbumin Urine 9.0 Microalbum/Creatinine Ratio Ur 20.1 <30 ug/mg cr Albumin/Creatinine Ratio Reference Ranges: Normal: < 30 ug/mg creatinine Microalbuminuria: 30 - 300 ug/mg creatinine Clinical Albuminuria: > 300 ug/mg creatinine Hemoglobin A1c Reviewed date:11/10/2024 12:57:28 PM Interpretation: Performing Lab:[address] [phone] Notes/Report: Hemoglobin A1c % 6.5 <6.0 % [...] average glucose, using the formula of the B7C-Yvywbjt Average Glucose study (ADAG), Diabetes Care, Vol.31,#8, Oct. 2007 UA ClnCatch+Micro w/rflx Cul t Reviewed date:11/11/2024 12:30:51 PM Interpretation: Performing Lab:[facility], [address] [place] [phone] Notes/Report: Urine, Clean Catch Color Urine Yellow Appearance Urine Clear PH 5.5 5.0-9.0 Glucose Urine UA Negative Negative mg/dL Urine Blood Negative Negative Specific [place] - Urine 1.010 1.005-1.025 Urine Protein Negative [...] Location Date Provider Diagnosis Jordan Gabriel MD [address] [place] [phone] 11/10/2024 Jordan Gabriel Type 2 diabetes mina [...] Details Provider Name:Jordan ward, 03/09/2025 03:00:00 PM, [address] [place] [address], [address], [phone], Provider Name:Jordan ward, 05/21/2025 01:45:00 PM, [address] [place] [address], [address], [phone], Provider Name:Jordan ward, 11/15/2025 07:15:00 AM, [address] [place] [address], [phone], Provider Name:Jordan ward, 11/22/2025 10:30:00 AM, [address] [place] [address], [phone], Progress Notes * Anthony GOODMAN CDOB:1939 (84 yo M)Acc No.[id number]:11/10/2024 Progress Note Patient: Anthony GARCIA Provider: Emery Gabriel MD :1940 A ge:84 Y S ex:Male Date:11/10/2024 [id number] Subjective: * Chief Complaints: * 1 . [...] - 11/10/2024 08:00 AM) L AB: Comprehensive [place]. Panel Fast (Collection Date & Time - [...] - 11/10/2024 08:00 AM) L AB: Comprehensive [place]. Panel Fast (Collection Date & Time - [...] - 11/10/2024 08:00 AM) L AB: Comprehensive [place]. Panel Fast (Collection Date & Time - [...] - 11/10/2024 08:00 AM) L AB: Comprehensive [place]. Panel Fast (Collection Date & Time - [...] 11/10/2024 Generated for Gautam oh/Isaac/Esequiel on: 1 04/13/2024 01:18 AM EST
--- OUTSIDE RECORDS SUMMARY | 2024-11-17 05:30 | XMS_ITS ---
Author Organization Jordan Gabriel MD Address [address] [place] [phone] Care Team Providers Care Museum Guide Name Role Phone Jordan Gabriel Primary Care Provider [phone] Allergies No Known Allergies Results Component Value Reference Range Notes XR foot RT 2V Reviewed date:11/17/2024 04:42:26 PM Interpretation: Performing Lab: Notes/Report: [address] [address] XRay Report Signed Patient: Anthony Goodman MR#: [id number] : 1940 Acct:[id number] Age/Sex: 84 / M ADM Date: 11/17/24 Loc: HO.XRAY Attending Dr: Jordan Gabriel MD Ordering Physician: Jordan Gabriel MD Date of Service: 11/17/24 Procedure(s): XR foot RT 2V Accession Number(s): [id number] cc: Jordan Gabriel MD EXAMINATION: XR FOOT [...] 11/17/24 1137 DD/ 1115 TD/TT: 11/17/24 1123 Used Car Sales Manager: [place] [address] XRay Report Signed Patient: Angelia Goodman Sr MR#: [id number] : 1940 Acct:[id number] Age/Sex: 84 / M ADM Date: 11/17/24 Loc: HO.XRBRADEN Attending Dr: Jordan Gabriel MD Ordering Physician: Jordan Gabriel MD Date of Service: 11/17/24 Procedure(s): XR foot RT 2V Accession Number(s): [id number] cc: Jordan Gabriel MD EXAMINATION: XR FOOT [...] 11/17/24 1137 DD/ 1115 TD/TT: 11/17/24 1123 Used Car Sales Manager: Reason For Referral Reason I48.0 Paroxysmal atr [...] Notes Start Date End Date Status Nystatin 972142 UNIT/GM 1 application Externally Twice a day [...] 500 MG TAKE 1 TABLET BY MO [facility] TWICE A DAY WITH MEALS Active [...] Location Date Provider Diagnosis Jordan Gabriel MD [address] [place] [address] [place] [phone] 11/17/2024 Jordan Gabriel Foot pain, right M79 [...] Reason: Provider Name:Jordan nettlesr, 03/09/2025 03:00:00 PM, [address] [place] [address], [address], [phone], Provider Name:Jordan ward, 05/21/2025 01:45:00 PM, [address] [place] [address], [address], [phone], Provider Name:Jordan ward, 11/15/2025 07:15:00 AM, [address] [place] [address], [address], [phone], Provider Name:Jordan nettlesr, 11/22/2025 10:30:00 AM, [address] [place] [address], [address], [phone], Progress Notes * Anthony GOODMAN CDOB:1939 (84 yo M)Acc No.[id number]:11/17/2024 Patient: Anthony GARCIA Ina Provider: Emery Gabriel MD :1940 A ge:84 Y S ex:Male Date:11/17/2024 Address: [place] Subjective: * Chief Complaints: * C OMP [...] spouse. Marital status: . 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 Pets: dogs. * Medications: T akingFreeStyle Lite [...] as needed Inhalation every 4 hrs Nystatin 119407 UNIT/GM Cream 1 application Externally Twice a [...] needed Inhalation every 4 hrs Taking Nystatin 095127 UNIT/GM Cream 1 application Externally Twice a [...] mg/dL Urine Blood Negative Negative - Specific [place] - Urine 1.010 1.005-1.025 - Urine Protein [...] 0 11/17/2024 Generated for Gautam oh/Isaac/Júniorsmitting on: 04/13/2024 01:17 [...]
--- OUTSIDE RECORDS SUMMARY | 2024-11-24 02:30 | XMS_ITS ---
Author Organization Jordan Gabriel MD Address [address] [place] [address] [phone] Care Team Providers Care Engineering Manager Electronics Name Role Phone Jordan Gabriel Primary Care Provider [phone] Results Component Value Reference Range Notes Blood Urea Nitrogen Reviewed date:11/24/2024 01:52:49 PM Interpretation: Performing Lab:[address] [phone] Notes/Report: Blood Urea Nitrogen 21 9-16 mg/dL Creatinine Reviewed date:11/24/2024 01:52:40 PM Interpretation: Performing Lab:[facility], [address] [place] [phone] Notes/Report: Creatinine 1.37 0.5-1.4 mg/dL Estimated Glomerular Filt Rate 50 Chronic Kidney Disease: Estimated GFR < 60 mL/min/1.73m2 Severe Kidney Disease: Estimated GFR < 15 mL/min/1.73m2 REASON FOR VISIT Bun and creatine Encounters Encounter Location Date Provider Diagnosis Jordan Gabriel MD [address] [place] [address] [phone] 11/24/2024 Jordan Gabriel Paroxysmal atrial fibrillation I48.0 Assessments Encounter Date Diagnosis (ICD Code) Assessment Notes Treatment Notes Treatment Clinical Notes Section Notes 11/24/2024 Paroxysmal atrial fibrillation (ICD-10 - I48.0) Plan Of Treatment Next Appt Details Provider Name:Jordan ward, 03/09/2025 03:00:00 PM, [address] [place] [address], [phone], Provider Name:Jordan ward, 05/21/2025 01:45:00 PM, [address] [place] [address], [address], [phone], Provider Name:Jordan ward, 11/15/2025 07:15:00 AM, [address] [place] [address], [phone], Provider Name:Jordan ward, 11/22/2025 10:30:00 AM, [address] [place] [address], [phone], Progress Notes * Anthony GOODMAN CDOB:1939 (84 yo M)Acc No.[id number]:11/24/2024 Progress Note Patient: Anthony GARCIA Provider: Emery Gabriel MD :1940 A ge:84 Y S ex:Male Date:11/24/2024 Address:[address] [place] [address] [facility] Subjective: * Chief Complaints: * 1 . [...] 0 11/24/2024 Generated for Gautam oh/Isaac/Esequiel on: 04/13/2024 01:17 AM EST
--- OUTSIDE RECORDS SUMMARY | 2024-11-24 05:15 | XMS_ITS ---
Author Organization Jordan Gabriel MD Address [address] [place] [address] [phone] Care Team Providers Care Market Development Analyst Name Role Phone Jordan Gabriel Primary Care Provider [phone] REASON FOR VISIT HDF Immunizations Vaccine Route Administration Date Status Comme nts Influenza High Dose IM Intramuscular 11/24/2024 Administer ed Encounters Encounter Location Date Provider Diagnosis Jordan Gabriel MD [address] [place] [address] [phone] 11/24/2024 Jordan Gabriel Encounter for administration of vaccine Z23 Assessments Encounter Date Diagnosis (ICD Code) Assessment Notes Treatment Notes Treatment Clinical Notes Section Notes 11/24/2024 Encounter for administration of vaccine (ICD-10 - Z23) Plan Of Treatment Next Appt Details Provider Name:Jordan Cyr ier, 03/09/2025 03:00:00 PM, [address], [place], [phone], Provider Name:Jordan Cyr ier, 05/21/2025 01:45:00 PM, [address], [place], [place], [phone], Provider Name:Jordan Cyr ier, 11/15/2025 07:15:00 AM, [address], [place], [phone], Provider Name:Jordan Cyr ier, 11/22/2025 10:30:00 AM, [address] [place] [address], Suite [facility], [place], [place], [phone], Progress Notes * Anthony GOODMAN CDOB:1939 (84 yo M)Acc No.[id number]:11/24/2024 Progress Note Patient: Anthony GARCIA Provider: Emery Gabriel MD :1940 A ge:84 Y S ex:Male Date:11/24/2024 Address:[address] [place], [place] [address]j[address] [facility] Subjective: * Chief Complaints: * 1 . HDF. * Medical History: Objective: * Vitals: Assessment: * Assessment: 1. E ncounter for administration of vaccine - Z23 (Primary) Plan: * Treatment: * Immunizations: Influenza High Dose : 0.5 mg (Dose No:1) (Route: Intramuscular) given by Ruby Landin , Office Staff on Left Deltoid * Procedure Codes: 9 0662 FLU VACC PRSV FREE INC ANTIG, G0008 ADMN FLU VAC NO FEE SCHED SAME DAY * * The named appointment provid er may or may not be the originator of this progress note, and it is not deemed complete until electronically signed by the appointment provider. Sign off status: Pending * Provider: Emery Gabriel MD Date: 0 11/24/2024 Generated for Gautam oh/Isaac/Esequiel on: 1 04/13/2024 01:18 AM EST
--- OUTSIDE RECORDS SUMMARY | 2024-12-08 04:15 | XMS_ITS ---
Author Organization Jordan Gabriel MD Address [address] [place] [phone] Care Team Providers Care Sdc Teacher Name Role Phone Jordan Gabriel Primary Care Provider [phone] Allergies No Known Allergies REASON FOR VISIT [...] food Orally Once a day Active Nystatin 006461 UNIT/GM 1 application Externally Twice a day [...] W/U Status Risk Notes Problem Atrial fibrillation (16746007) Atrial fibrillation (I48.91) Active confirmed Vital Signs Blood pressure systolic 142 mm Hg 12/09/19 25 Blood pressure diastolic 60 mm Hg 025 Height 71 in 12/08/2024 Weight 203 lbs 12/08/2024 BMI 28.31 kg/m2 12/08/2024 weight is up 2 pounds since 11-17-24 Encounters Encounter Location Date Provider Diagnosis Jordan Gabriel MD [address] [place], [place] [phone] 12/08/2024 Jordan Gabriel Panlobular emphysema J43.1 ; [...] Reason: Provider Name:Jordan ward, 03/09/2025 03:00:00 PM, [address] [place] [address], [address], [phone], Provider Name:Jordan ward, 05/21/2025 01:45:00 PM, [address] [place] [address], [phone], Provider Name:Jordan ward, 11/15/2025 07:15:00 AM, [address] [place] [address], [address], [phone], Provider Name:Jordan ward, 11/22/2025 10:30:00 AM, [address] [place] [address], [phone], Progress Notes * Anthony GOODMAN CDOB:1939 (84 yo M)Acc No.[id number]:12/08/2024 Patient: Anthony GARCIA Provider: Emery Gabriel MD :1940 A ge:84 Y S ex:Male Date:12/08/2024 Address:[id number] Subjective: * Chief Complaints: * 3 weeks [...] 1 capsule Orally Once a day Nystatin 452743 UNIT/GM Cream 1 application Externally Twice a [...] capsule Orally Once a day Taking Nystatin 498739 UNIT/GM Cream 1 application Externally Twice a [...] 0 12/08/2024 Generated for Gautam oh/Isaac/eTransmitting on: 04/13/2024 01:18 AM EST History and Physical Notes * [...]
--- OUTSIDE RECORDS SUMMARY | 2025-01-05 08:45 | XMS_ITS ---
Author Organization Jordan Gabriel MD Address [address] [place] [phone] Care Team Providers Care Technical Support Representative Name Role Phone Jordan Gabriel Primary Care Provider Allergies No Known Allergies REASON FOR VISIT 3 week, Accompanied by Medications Medication SIG (Take, Route, Frequency, Duration) Notes Start Date End Date Status Atorvastatin Calcium 80 MG 1 tablet Orally Once a day Active Ferrous Sulfate 325 (65 Fe) MG 1 tablet Orally BID Active metFORMIN HCl 500 MG TAKE 1 TABLET BY [facility] TWICE A DAY WITH MEALS Active [...] for 30 days 11/14/2017 Not-Taki ng Nystatin 347416 UNIT/GM APPLY DAILY TO S KIN TO [...] Date Provider Diagnosis Jordan Gabriel MD 10 [facility] [address] [place], [place] [phone] 01/05/2025 Jordan Gabriel Paroxysmal atrial fibrillation I48.0 [...] Reason: Provider Name:Jordan ward, 03/09/2025 03:00:00 PM, [address] [place] [address], [address], [place], [phone], Provider Name:Jordan ward, 05/21/2025 01:45:00 PM, [address] [place] [address], [address], [place], [place], [phone], Provider Name:Jordan ward, 11/15/2025 07:15:00 AM, [address], [address], [place], [place], [phone], Provider Name:Jordan Cyr ier, 11/22/2025 10:30:00 AM, [address], [address], [place], [place], [phone], Progress Notes * KENYAnthony Mccall CDOB:1939 (84 yo M)Acc No.[id number]:01/05/2025 Progress Notes Patient: Anthony GARCIA Ina Provider: Emery Gabriel MD :1940 A ge:84 Y S ex:Male Date:01/05/2025 Address:[address] [facility] Subjective: * Chief Complaints: * 3 weekAccompanied [...] with food Orally Once a day Nystatin 465866 UNIT/GM Cream APPLY DAILY TO SKIN TO [...] food Orally Once a day Taking Nystatin 655598 UNIT/GM Cream APPLY DAILY TO SKIN TO [...] Emery Gabriel MD Date: Generated for Gautam oh/Isaac/Júniorsmitting on: 04/13/2024 01:17 [...]
[2025-02-10 13:25] VITALS: BP 130/54; PULSE 53; BMI 26.5
--- NOTE | 2025-02-10 13:25 | MHC.OFFVIS ---
Vital Signs 02/10/25 13:25 Height 6 ft 1 in Weight 200 lb 9.93 oz BMI 26.5 BP 130/54 L Blood Pressure Location Lt brachial Position Sitting Pulse 53 Intake Visit Reasons: 1 year fu (rs) Intake Note: 1 year follow-up with ekg has had some afib had holter Assistant Director Required: No Allergies No Known Allergies Allergy (Verified 07/23/24 12:25) Medication List - Last Reconciled 02/10/25 by Darryl Padilla MD atorvastatin 80 mg PO DAILY budesonide-formoterol 160-4.5 mcg/actuation (Symbicort) 2 puffs inhalation BID calcium carbonate-vitamin D3 600 mg-5 mcg (200 unit) 1 tab PO BID cholecalciferol (vitamin D3) (Vitamin D3) 50 mcg PO DAILY cyanocobalamin (vitamin B-12) (Vitamin B-12) 1,000 mcg PO DAILY ferrous sulfate (Feosol) 325 mg PO DAILY furosemide (Lasix) 20 mg PO DAILY [lisinopril-hydrochlorothiazide ] metformin 500 mg PO BID metoprolol succinate ER 25 mg PO DAILY multivitamin 1 tab PO DAILY omeprazole 20 mg PO BEDTIME rivaroxaban (Xarelto) 20 mg PO QPM HPI Comments Details: Anthony comes for follow-up, accompanied by his . After I saw him last year when he said that AFib he is not having any significant symptoms over next few months he started noticing increasing shortness of breath however he did not call my office about the same. Starting spring he started noticing some leg swelling after he was given prednisone for treatment of his gout. Followed that he had recurrent gout and was given another repeat treatment of prednisone and he started having more leg swelling. At that time was started on furosemide 20 mg daily. He is also noticing continued increasing shortness of breath with exertion which is new. Denies any orthopnea or PND at current time. He said leg swelling has improved with low-dose Lasix therapy which is not taking regularly. His creatinine was elevated however subsequent creatinine had downtrended. He is currently still on Xarelto 20 mg daily. He denies any chest pain. Denies any palpitation still. No lightheadedness, syncope. No major bleeding issues or neurologic events. [facility] Medical History (Updated 02/10/25 @ 14:14 by Darryl Padilla MD) Persistent atrial fibrillation Atrial fibrillation and flutter Arthritis Hiatal hernia COVID-19 On anticoagulant therapy History of blood transfusion Severe sepsis Gallstone pancreatitis GARTH (acute kidney injury) PVD (peripheral vascular disease) History of cancer COPD (chronic obstructive pulmonary disease) GERD (gastroesophageal reflux disease) Hyperlipidemia Diabetes mellitus HTN (hypertension) Paroxysmal atrial fibrillation CAD (coronary artery disease) Surgical History (Updated 10/06/24 @ 12:04 by Stacey Rouse MD) History of surgery on wrist Hx of spinal surgery History of esophagogastroduodenoscopy (EGD) H/O colonoscopy H/O excision of mass History of excision of lesion History of laparoscopic cholecystectomy History of arthroplasty of left hip History of lobectomy of lung H/O heart surgery Social History Household Members: Spouse Housing: House Are you a primary women's health care nurse practitioner to a significant other at home: No Do you presently have visiting nurse or other home services: No Alcohol intake: former Patient Tobacco Use Status: Former Tobacco user Tobacco use type: Cigarette Cigarette Packs Per Day: 1 service: Yes 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 Review of Systems Const Denies chills, Denies fatigue, Denies fever(s), Denies frequent falls, Denies weakness, Denies weight gain and Denies weight loss ENT Denies dizziness Card Denies chest pain, Denies leg edema, Denies lightheadedness, Denies palpitations, Denies dyspnea, Denies dyspnea on exertion, Denies orthopnea and Denies other (loss of consciousness) Resp Denies cough, Denies dyspnea and Denies dyspnea on exertion GI Denies hematochezia and Denies change in stool character Musc Denies abnormal gait, Denies muscle weakness, Denies numbness, Denies radiating pain into limb and Denies tingling Neuro Denies abnormal gait, Denies dizziness, Denies frequent falls, Denies numbness, Denies tingling and Denies weakness Endo Denies fatigue and Denies palpitations Physical Exam Vital Signs: Last Vital Signs Pulse 53 02/10/25 13:25 BP 130/54 L 02/10/25 13:25 BMI result Body Mass Index 26.5 Const General: cooperative, comfortable, no acute distress, alert, awake and other ( Positive pallor) Nutritional Appearance: average body habitus Orientation/consciousness: patient oriented x3 Limitations: no limitations Neck Neck: Yes trachea midline, Yes supple and Yes no JVD (Positive AJR) Resp Effort & Inspection: normal respiratory effort Auscultation: crackles (Coarse crackles at left base) Cardio Jugular venous distension: no JVD Palpation: normal PMI Rhythm: abnormal rhythm irregularly irregular Heart sounds: S1 normal heart sound present, S2 normal heart sound present, no click, no gallops, no murmurs and no rubs Peripheral pulses: other (Reduced distal pulses in the left lower extremity) GI Auscultation: normal bowel sounds Skin General skin exam: no rashes or lesions noted Neuro General: patient oriented x3 and no focal motor deficits Extrem General: No clubbing, No cyanosis and Yes edema ( toribio ankle edema on the left) Psych Appearance: grossly normal Office Procedures EKG Details: EKG shows atrial fibrillation with slow ventricular response at 53 beats per minute [id number], Complete Assessment & Plan Assessment & Plan (1) Heart failure with preserved ejection fraction: Code(s): I50.30 - Unspecified diastolic (congestive) heart failure Category: Medical Plan: Heart failure with preserved ejection fraction she has now developed related to his persistent atrial fibrillation. We discussed about pathophysiology of atrial fibrillation heart failure development due to loss of AV synchrony. He has left atrial enlargement and has persistent atrial fibrillation for more than a year. Likelihood of pursuing and maintaining rhythm in the long run is low although given that he has heart failure syndrome we should pursue this. He will require antiarrhythmic drug support. Will start him on amiodarone loading 400 mg b.i.d. for 2 weeks followed by 200 mg daily and follow with synchronized cardioversion. did ask about ablation, although given that he is in persistent atrial fibrillation for about year or more will require force trial to see if he will maintain rhythm and then will refer him for ablation. Will need baseline workup with chest x-ray, liver profile and thyroid profile prior to starting amiodarone loading. This was discussed with him. Reduce metoprolol to half the dose. Follow up in the clinic in 2 weeks' time to see his heart rate and then decide to discontinue metoprolol altogether. Currently on full dose Xarelto and will check basic metabolic profile in 2 weeks' time to see if he requires reduction in his Xarelto dose if his creatinine clearance is less than 50 mL/minute. Continue diuretic regimen with Lasix 20 mg daily. Will check anti pro BNP today and in 2 weeks. Will start Farxiga 5 mg to his regimen. (2) Persistent atrial fibrillation: Code(s): I48.19 - Other persistent atrial fibrillation Category: Medical Plan: Persistent atrial fibrillation has management as above. Will pursue rhythm control approach hopefully will help with management of rhythm. Continue anticoagulation as above. (3) CAD (coronary artery disease): Code(s): I25.10 - Atherosclerotic heart disease of [place] coronary artery without angina pectoris Category: Medical Plan: CAD with prior coronary artery bypass grafting with symptoms of shortness of breath as his anginal equivalent. Would suggest vasodilating myocardial perfusion imaging due to persistent shortness of breath and development of heart failure syndrome to rule out myocardial ischemia as etiology for his heart failure syndrome. This was discussed with him. Will follow up in the clinic in 6 weeks time, sooner PRN. Thank you for allowing me to partake in his care Orders: Orders XR chest 2V Today I48.21 - Permanent atrial fibrillation TSH reflex Free T4 Today I48.21 - Permanent atrial fibrillation NM cardiolite stress test 2 Weeks I50.30 - Unspecified diastolic (congestive) heart failure NT Pro B Type Natriuretic Pept Today I48.21 - Permanent atrial fibrillation Liver Panel Today I48.21 - Permanent atrial fibrillation Cardioversion 3 Weeks I48.19 - Other persistent atrial fibrillation CA lexiscan stress w estelita Today I50.30 - Unspecified diastolic (congestive) heart failure Medications: New dapagliflozin propanediol (Farxiga) 5 mg PO DAILY 30 tabs 5RF I48.21 - Permanent atrial fibrillation metoprolol succinate ER 12.5 mg PO DAILY I48.21 - Permanent atrial fibrillation amiodarone 400 mg PO BID 30 tabs 0RF I48.21 - Permanent atrial fibrillation Coding Level of Care Code Est Pt Level 4 (69763) Complex EM visit Add On G2211 Diagnoses Heart failure with preserved ejection fraction I50.30 Persistent atrial fibrillation I48.19 CAD (coronary artery disease) I25.10 CPT Codes EKG - CPT: 33415-[id number], Complete ([id number])
--- OUTSIDE RECORDS SUMMARY | 2025-02-11 01:17 | XMS_ITS | Patient Health Record ---
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 Name Role Phone Jordan Gabriel MD Primary Care Provider Patito Carpenter Unavailable [phone] Allergies No Known Allergies Results Component Value Reference Range Flag Notes Glucose, Whole Blood Reviewed date:07/25/2024 10:07:32 PM Interpretation: Performing Lab:[facility], [address] [place] [id number] Notes/Report: Glucose, Whole Blood 101 60-115 mg/dL N [facility] #: [id number] Reason For Referral No Information Medications Medication SIG (Take, Route, Frequency, Duration) Notes Start Date End Date Status Omeprazole 40 MG Capsule Delayed Release 1 capsule 1/2 to 1 hour before morning meal Orally Once a day; Duration: 90 days 07/23/2024 Active Vitamin B-12 100 MCG Tablet as directed Orally Active Omeprazole 20MG RX Enteric Coated Capsule TAKE 1 CAPSULE DAILY; Duration: 90 Active metFORMIN HCl 500 MG Tablet 1 tablet wit h meals Orally Twice a day Active Calcium + D 315-200 MG-UNIT Tablet 1 tablet with meals Orally Twice a day Active Vitamin D3 1000 UNIT Tablet 1 tablet Ora lly Once a day Active Atorvastatin Calcium 80 MG Tablet 1 tablet Orally Once a day Active Iron (Ferrous Sulfate) 325 (65 Fe) MG Tablet 1 tablet Orally BID Act radha Lisinopril-hydroCHLOROthiaz godwin Active Xarelto 10 MG Tablet 1 tablet Orally Onc e a day Active Omeprazole 20MG Enteric Coated Capsule TAKE 1 CAPSULE DAILY; Duration: 90 Active Multi Vitamin/Minerals 1 Tablet 1 tablet Orally once a day Active Immunizations Vaccine Route Administration Date Status Comme nts Flu vaccine no Preserv 3 and > Unknown 11/24/2015 Admin istered Influenza Unknown 11/24/2019 Administered Influenza Unknown 11/23/2020 Administered Influenza Unknown 01/07/2024 Administered Social History Social History Additional Details Category Social Info Options Details Miscellaneous: Marital status: Occupation: Retired Section Notes: Nonsmoker since 2011; no sig alcohol Nonsmoker since 2011; no sig alcohol Nonsmoker since 2011; no sig alcohol Nonsmoker since 2011; no sig alcohol Nonsmoker since 2011; no sig alcohol Nonsmoker since 2011; no sig alcohol Problems Problem Type SNOMED Code ICD Code Onset Dates Problem Status W/U Status Risk Notes Problem Screening for malignant neoplasm of colon (224043673) Encounter for screening for malignant neoplasm of colon (Z12.11) Active confirmed Problem History of adenomatous polyp of colon (966350291) History of adenomatous polyp of colon (Z86.010) Active confirmed Problem Screening for malignant neoplasm of rectum (728885658) Encounter for screening for malignant neoplasm of rectum (Z12.12) Active confirmed Problem Dysphagia (29877432) Dysphagia (R13.10) Active confirmed Problem Iron deficiency anemia (77030048) Iron deficiency anemia (D50.9) Active confirmed Problem Gastric polyp (58429823) Gastric polyp (K31.7) Active confirmed Problem History of polyp of colon (situation) (460647318) Hx of colonic polyps (Z86.010) Active confirmed Problem Long-term current use of anticoagulant (887948173) Long-term (current) use of anticoagulants (Z79.01) Active confirmed Problem Iron deficiency anemia (93345363) Iron deficiency anemia, unspecified iron deficiency anemia type (D50.9) Active confirmed Problem Stricture of esophagus (50410053) History of esophageal stricture (Z87.19) Active confirmed Problem Esophageal reflux finding (147311210) Gastroesophageal reflux (K21.9) Active confirmed Problem Diverticulosis of sigmoid colon (794328439) Diverticulosis of sigmoid colon (K57.30) Active confirmed [...] Encounters Encounter Location Date Provider Diagnosis [facility] [address], [place] [id number] 07/23/2024 Patito Andrews Esophageal stricture K22.2 and Hiatal hernia K44.9 [facility] [address] [place] [phone] 07/01/2024 Patito Andrews Dysphagia R13.10 ; History of esophageal stricture Z87.19 and Gastroesophageal reflux K21.9 [facility] [address] [place] [phone] 06/01/2024 Patito Andrews [facility] [address] [place] [phone] 07/23/2024 Patito Andrews Assessments Encounter Date Diagnosis [...] to keep you advised of his progress.. 07/23/2024 Esophageal stricture (ICD-10 - K22.2) 07/23/2024 Hiatal hernia (ICD-10 - K44.9) 07/01/2024 History of esophageal stricture (ICD-10 - [...] DIFF 03/09/2021 CBC w DIFF 12/04/2020 Ferritin 12/04/2020 Ferritin 03/09/2021 Future Test Test Name Order Date UPPER GI ENDOSCOPY [place] DILATION OF ESOPH 08/29/2012 COLONOSCOPY 08/29/2012 COLONOSCOPY 03/29/2016 UPPER GI ENDOSCOPY 10/20/2020 COLONOSCOPY 10/20/2020 Insurance Providers Payer Name Payer Address Payer Phone Subscriber Number Group Number Insured Name Patient Relationship to Insured Coverage Start Date Coverage End Date MEDICARE OF [place] [address] [place] [address] [id number] PATITO BUSTILLO Self - patient is the insured [employer] ATT[employer] CLAIMS [address] [place] [address] [id number] PATITO BUSTILLO Self - patient is the insured Medical (General) History Medical History History ICD Code Larger tubular adenoma with dysplasia re moved in 11/2008 from [facility] Colonoscopy 07-06-2009--small tubular cristina nomas Hyperlipidemia EGD in 11/2008 with a small HH and gastri tis-neg. H. pylori COPD/pneumonia Denies CA,CVA,renal disease HTN Asymptomatic gallstones-this had been reviewed with him on his previous office visit in August,---he had subsequent gallstone pancreatitis and cholecystectomy as below Upper endoscopy in August with a finding of a fibrotic distal esophageal stricture that was dilated successfully with balloons Colonoscopy in August of 2012 with removal of small tubular adenomas Atrial flutter/Atrial fib--sees Dr. Hazel watters [facility] Colonoscopy 06/2016-small tubular adenoma s [...] V CABG and MAZE procedure in 2018 Left lung nodule removed--malignant--07/24 017 Spine surgery 08/15--Dr. Martines Wrist surgery 05/18-Dr. Norman
--- OUTSIDE RECORDS SUMMARY | 2025-02-11 01:18 | XMS_ITS | Patient Health Record ---
Author Organization Jordan Gabriel MD Address [address] [place] [phone] Care Team Providers Care Lottery Office Manager Name Role Phone Jordan Gabriel Primary Care Provider [phone] Allergies No Known Allergies Results Component Value Reference Range Notes Liver Panel Reviewed date:05/12/2024 04:52:54 PM Interpretation: Performing Lab:[facility], [address] [place] [phone] Notes/Report: Bilirubin Total 0.5 0.0-1.0 mg/dL Bilirubin Direct 0.2 0.0-0.5 mg/dL Aspartate Amino Transferase 28 5-37 U/L Alanine Aminotransferase 18 0-40 U/L Total Protein 7.1 6.5-8.0 g/dL Albumin Level 4.0 3.5-5.0 g/dL Alkaline Phosphatase 72 39-117 U/L Glucose Fasting Reviewed date:05/12/2024 04:53:04 PM Interpretation: Performing Lab:[facility], [address] [place] [phone] Notes/Report: Glucose Fasting 95 60-99 mg/dL Lipid Panel with Reflex Reviewed date:05/12/2024 04:53:13 PM Interpretation: Performing Lab:[facility], [address] [place] [phone] Notes/Report: Triglycerides 71 <150 mg/dL Desirable Triglyceride: [...] A1c Reviewed date:05/12/2024 12:07:37 PM Interpretation: Performing Lab:[facility], [address] [place] [phone] Notes/Report: Hemoglobin A1c % 6.0 <6.0 % [...] average glucose, using the formula of the K8H-Ulzyrwa Average Glucose study (ADAG), Diabetes Care, Vol.31,#8, 2007 Potassium Reviewed date:10/09/2024 12:34:47 PM Interpretation: Performing Lab:[facility], [address] [place] [phone] Notes/Report: Potassium 5.0 3.3-5.1 mmol/L Complete Blood Count Auto Di ff Reviewed date:11/10/2024 04:43:39 PM Interpretation: Performing Lab:[facility], [address] [place] [phone] Notes/Report: White Blood Count 14.2 4.8-10.8 X10*3/uL [...] NRBC Abs Auto 0.000 0.0-0.012 X10*3/uL Comprehensive [place]. Panel Fa st Reviewed date:12/08/2024 12:40:38 PM Interpretation:12-08-2024 Performing Lab:[facility], [address] [place] [address] Notes/Report: Sodium 136 135-145 mmol/L Potassium 4.7 [...] PROFILE Reviewed date:11/10/2024 12:58:08 PM Interpretation: Performing Lab:[facility], [address] [place] [phone] Notes/Report: Iron 49 45-160 mcg/dL Total Iron Binding Capacity 282 228-428 mcg/dL Percent Iron Saturation 17 15-50 % Unsaturated Iron Binding 233 Lipid Panel Reviewed date:11/10/2024 12:57:18 PM Interpretation: Performing Lab:[facility], [address] [place] [phone] Notes/Report: Triglycerides 81 <150 mg/dL Desirable Triglyceride: [...] (Free>4and<10) Reviewed date:11/10/2024 01:00:52 PM Interpretation: Performing Lab:[address] [phone] Notes/Report: PSA,Total (Free>4and<10) 2.37 0.00-4.00 ng/mL A [...] Random Reviewed date:11/10/2024 04:33:57 PM Interpretation: Performing Lab:[address] [address] Notes/Report: Creatinine Urine 44.71 Microalbumin Urine 9.0 Microalbum/Creatinine Ratio Ur 20.1 <30 ug/mg cr Albumin/Creatinine Ratio Reference Ranges: Normal: < 30 ug/mg creatinine Microalbuminuria: 30 - 300 ug/mg creatinine Clinical Albuminuria: > 300 ug/mg creatinine Hemoglobin A1c Reviewed date:11/10/2024 12:57:28 PM Interpretation: Performing Lab:[address] [address] Notes/Report: Hemoglobin A1c % 6.5 <6.0 % [...] average glucose, using the formula of the S7A-Leketbc Average Glucose study (ADAG), Diabetes Care, Vol.31,#8, Oct. 2007 UA ClnCatch+Micro w/rflx Cul t Reviewed date:11/11/2024 12:30:51 PM Interpretation: Performing Lab:[address] [address] Notes/Report: Urine, Clean Catch Color Urine Yellow Appearance Urine Clear PH 5.5 5.0-9.0 Glucose Urine UA Negative Negative mg/dL Urine Blood Negative Negative Specific [place] - Urine 1.010 1.005-1.025 Urine Protein Negative Neg-Trace mg/dL Urine Ketones Negative Negative mg/dL Nitrite Urine Negative Negative Leukocyte Esterase Urine Trace Negative RBC Urine 0-2 0-2 /HPF WBC Urine 0-5 0-5 /HPF Squamous Epithelial Cell Urine 0-2 0-2 /HPF Bacteria Urine None Seen None Seen Hyaline Casts Urine 0-2 0-2 /LPF Blood Urea Nitrogen Reviewed date:11/24/2024 01:52:49 PM Interpretation: Performing Lab:[facility], [address] [place] [address] Notes/Report: Blood Urea Nitrogen 21 9-16 mg/dL Creatinine Reviewed date:11/24/2024 01:52:40 PM Interpretation: Performing Lab:[address] [address] Notes/Report: Creatinine 1.37 0.5-1.4 mg/dL Estimated Glomerular Filt Rate 50 Chronic Kidney Disease: Estimated GFR < 60 mL/min/1.73m2 Severe Kidney Disease: Estimated GFR < 15 mL/min/1.73m2 XR foot RT 2V Reviewed date:11/17/2024 04:42:26 PM Interpretation: Performing Lab: Notes/Report: [address] [address] XRay Report Signed Patient: Anthony Goodman MR#: [id number] : 1940 Acct:[id number] Age/Sex: 84 / M ADM Date: 11/17/24 Loc: HO.XRAY Attending Dr: Jordan Gabriel MD Ordering Physician: Jordan Gabriel MD Date of Service: 11/17/24 Procedure(s): XR foot RT 2V Accession Number(s): [id number] cc: Jordan Gabriel MD EXAMINATION: XR FOOT [...] 11/17/24 1137 DD/ 1115 TD/TT: 11/17/24 1123 Night Assistant: [place] [address] XRay Report Signed Patient: Angelia Goodman Sr MR#: [id number] : 1940 Acct:[id number] Age/Sex: 84 / M ADM Date: 11/17/24 Loc: HO.XRAY Attending Dr: Jordan Gabriel MD Ordering Physician: Jordan Gabriel MD Date of Service: 11/17/24 Procedure(s): XR fernanda t RT 2V Accession Number(s): [id number] cc: Jordan Gabriel MD EXAMINATION: XR FOOT [...] 11/17/24 1137 DD/ 1115 TD/TT: 11/17/24 1123 Night Assistant: Complete Blood Count Auto Di ff Reviewed date:04/07/2024 05:05:38 PM Interpretation: Performing Lab:[facility], [address] [place] [phone] Notes/Report: White Blood Count 7.3 4.8-10.8 X10*3/uL [...] Ferritin Reviewed date:04/07/2024 04:41:39 PM Interpretation: Performing Lab:[facility], [address] [place] [phone] Notes/Report: Ferritin 30 20-250 ng/mL Lactate Dehydrogenase Reviewed date:04/07/2024 05:05:11 PM Interpretation: Performing Lab:[facility], [address] [place] [phone] Notes/Report: Lactate Dehydrogenase 165 118-273 U/L Hold Gold Reviewed date:05/12/2024 12:08:08 PM Interpretation: Performing Lab:[facility], [address] [place] [phone] Notes/Report: Hold Gold See Note Specimen held untested for 24 hours; Call to request Chemistry testing. CT chest wo con Reviewed date:05/14/2024 08:55:12 AM Interpretation: Performing Lab: Notes/Report: [address] [place] [address] CT Scan Report Signed Patient: Anthony Goodman Sr MR#: [id number] : 1940 Acct:[id number] Age/Sex: 84 / M ADM Date: 05/13/24 Loc: HO.CT Attending Dr: Jannet Evans NP Ordering Physician: JANNET EVANS NP Date of Service: 05/13/24 Procedure(s): CT chest wo IV con Accession Number(s): [id number] cc: JANNET EVANS TELLER HEAD; Jordan Gabriel MD Report Number: [id number]: Total DLP = 168.00 mGy-cm EXAMINATION: CT [...] Oseas Wallace MD 05/13/2024 11:42 AM [facility] Dictated By: Oseas Wallace MD Signed By: <Electronically signed by Oseas Wallace MD in OV> 05/13/24 1142 DD/ 1109 TD/TT: 05/13/24 1119 Night Assistant: [address] [address] [address] Scan Report Signed Patient: Angelia Goodman Sr MR#: [id number] : 1940 Acct:[id number] Age/Sex: 84 / M ADM Date: 05/13/24 Loc: HO.CT Attending Dr: Jannet Evans NP Ordering Physician: JANNET EVANS NP Date of Service: 05/13/24 Procedure(s): CT [facility] wo IV con Accession Number(s): [id number] cc: JANNET EVANS NP ; Jordan Gabriel MD Report Number: [id number]: Total DLP = 168.00 mGy-cm EXAMINATION: CT [...] noted throughout both lungs. -There is linear sca rring in the right lateral base with numerous [...] Oseas Wallace MD 05/13/2024 11:42 AM [facility] Dictated By: Oseas Wallace MD Signed By: <Electronically signed by Oseas Wallace MD in OV> 05/13/24 1142 DD/ 1109 TD/TT: 05/13/24 1119 Night Assistant: Complete Blood Count no Diff Reviewed date:07/07/2024 11:32:23 AM Interpretation: Performing Lab:[facility], [address] [place] [phone] Notes/Report: White Blood Count 6.7 4.8-10.8 X10*3/uL [...] Panel Reviewed date:07/07/2024 11:32:43 AM Interpretation: Performing Lab:[facility], [address] [place] [phone] Notes/Report: Sodium 138 135-145 mmol/L Potassium 4.6 [...] Ferritin Reviewed date:07/07/2024 11:31:21 AM Interpretation: Performing Lab:[facility], [address] [place] [address] Notes/Report: Ferritin 45 20-250 ng/mL SARS-CoV2/FLU/RSV Reviewed date:07/13/2024 04:20:38 PM Interpretation: Performing Lab:[facility], [address] [place] [phone] Notes/Report: Influenza A PCR NEGATIVE Negative Influenza [...] by authorized laboratories. Testing performed on the [employer] GeneXpert utilizing real-time RT-PCR. All SARS CoV2 and positive influenza A/B results are reported to [facility]. XR chest 2V Reviewed date:07/13/2024 04:21:30 PM Interpretation: Performing Lab: Notes/Report: [facility] Primary [facility] [facility] [address] XRay Report Signed Patient: Anthony Goodman Sr MR#: [id number] : 1940 Acct:[id number] Age/Sex: 84 / M ADM Date: 07/11/24 [facility] Dr: Awilda ARTIS Ordering Physician: Awilda Lozoya Date of Service: 07/11/24 Procedure(s): XR chest 2V Accession Number(s): [id number] cc: Jordan Gabriel MD; Awilda Lozoya CLINICAL [...] 07/11/24 1036 DD/ 1035 TD/TT: 07/11/24 1035 Night Assistant: [facility] [address] [place] [address] [place] [address] XRay Report Signed Patient: Angelia Goodman Sr MR#: [id number] : 1940 Acct:[id number] Age/Sex: 84 / M ADM Date: 07/11/24 Loc: HO.HMGCX Attending Dr: Geoffrey ARTIS Ordering Physician: Awilda Lozoya Date of Service: 07/11/24 Procedure(s): XR chest 2V Accession Number(s): [id number] cc: Jordan Gabriel MD; Awilda Lozoya CLINICAL HISTORY: pain 2 view chest x-ray Comparison: 07/31/2023 Findings: No new consolidation or effusion. Heart size is normal. No acute fracture. IMPRESSION: 1. No acute findings. This document has be en electronically signed by: Alfred Ma MD on 07/11/2024 10:35:49 Dictated By: Ronnell Ma MD Signed By: <Electronically signed by Alfred Ma MD in OV> 07/11/24 1036 DD/ 1035 TD/TT: 07/11/24 1035 Night Assistant: Glucose, Whole Blood Reviewed date:07/23/2024 02:25:52 PM Interpretation: Performing Lab:[facility], [address] [place] [phone] Notes/Report: Glucose, Whole Blood 101 60-115 mg/dL METER # : [id number] Complete Blood Count Auto Di ff Reviewed date:10/06/2024 05:13:16 PM Interpretation: Performing Lab:[facility], [address] [place] [phone] Notes/Report: White Blood Count 7.4 4.8-10.8 X10*3/uL [...] Panel Reviewed date:10/06/2024 03:35:55 PM Interpretation: Performing Lab:[facility], [address] [place] [address] Notes/Report: Sodium 142 135-145 mmol/L Potassium 5.4 [...] Ferritin Reviewed date:10/06/2024 12:19:56 PM Interpretation: Performing Lab:[facility], [address] [place] [phone] Notes/Report: Ferritin 28 20-250 ng/mL Haptoglobin Reviewed date:10/06/2024 12:19:09 PM Interpretation: Performing Lab:[facility], [address] [place] [phone] Notes/Report: Haptoglobin 200 40-268 mg/dL US venous duplex LE LT Reviewed date:11/02/2024 11:56:32 AM Interpretation: Performing Lab: Notes/Report: [address] [address] Ultrasound Report Signed Patient: Anthony Goodman Sr MR#: [id number] : 1940 Acct:[id number] Age/Sex: 84 / M ADM Date: 11/02/24 Loc: HO.US Attending Dr: Jordan Gabriel MD Ordering Physician: Jordan Gabriel MD Date of Service: 11/02/24 Procedure(s): US venous duplex LE LT Accession Number(s): [id number] cc: Jordan Gabriel MD EXAMINATION: US LOWER [...] 11/02/24 1128 DD/ 1106 TD/TT: 11/02/24 1114 Night Assistant: [address] [address] Ultrasound Report Signed Patient: Angelia Goodman Sr MR#: [id number] : 1940 Acct:[id number] Age/Sex: 84 / M ADM Date: 11/02/24 Loc: .US Attending Dr: Jordan Gabriel MD Ordering Physician: Jordan Gabriel MD Date of Service: 11/02/24 Procedure(s): US christopher ous duplex LE LT Accession Number(s): [id number] cc: Jordan Gabriel MD EXAMINATION: US LOWE [...] may be the result of prior thrombosis. U S/US venous duplex LE LT IMPRESSION: No evidence of acute DVT in the left lower extremity. Electronically cole d by: Anthony Bennett MD 11/02/2024 11:28 AM EDT RP Dictated By: Anthony Bennett MD Signed By: <Electronically signed by Anthony Bennett MD in OV> 11/02/24 1128 DD/ 1106 TD/TT: 11/02/24 1114 Night Assistant: Liver Panel (Not yet reviewe d by provider) Interpretation: Performing Lab:[address] [address] Notes/Report: Bilirubin Total 0.4 0.0-1.0 mg/dL Bilirubin Direct 0.2 0.0-0.5 mg/dL Aspartate Amino Transferase 24 5-37 U/L Alanine Aminotransferase 22 0-40 U/L Total Protein 7.2 6.5-8.0 g/dL Albumin Level 4.3 3.5-5.0 g/dL Alkaline Phosphatase 75 39-117 U/L TSH reflex Free T4 (Not yet reviewed by provider) Interpretation: Performing Lab:[address] [address] Notes/Report: TSH reflex Free T4 1.42 0.32-4.0 uIU/mL NT Pro B Type Natriuretic Pe pt (Not yet reviewed by provider) Interpretation: Performing Lab:[facility], [address] [place] [address] Notes/Report: NT Pro B Type Natriuretic Pept 1725.1 <300 pg/mL Reference Range: Age Group (years) NT-proBNP (pg/ml) Interpretation All <300 Negative: HF unlikely For patients presenting to the ED with clinical suspicion of new onset or worsening HF, see below: 18 to <50 >299.9 to <450.0 Grayzone: Consider 50 to 75 >299.9 to <900.0 other causes of >75 >299.9 to <1800.0 NT-proBNP elevation 18 to <50 >449.9 Positive: HF likely 50-75 >899.9 >75 >1799.9 Note: Elevated NT-proBNP levels should be interpreted in the context of other clinical information. XR chest 2V (Not yet reviewe d by provider) Interpretation: Performing Lab: Notes/Report: [address] [address] XRay Report Signed Patient: Anthony Goodman MR#: [id number] : 1940 Acct:[id number] Age/Sex: 84 / M ADM Date: 02/10/25 Loc: HO.XRAY Attending Dr: Darryl Padilla MD Ordering Physician: Darryl Padilla MD Date of Service: 02/10/25 Procedure(s): XR chest 2V Accession Number(s): [id number] cc: Jordan Gabriel MD; Darryl Padilla MD Reason for Exam: I48.21 - Permanent atrial fibrillation EXAMINATION: XR CHEST CLINICAL INFORMATION: I48.21 - Permanent atrial fibrillation. History of treatment for lung carcinoma. Right upper lobe resection. The left upper lobe wedge resection. COMPARISON: Radiographs on July 11, 2024.. Chest CT on May 13, 2024. TECHNIQUE: 2 views of the chest were obtained. FINDINGS: Postoperative changes in bilateral lungs. No confluent consolidation. Linear atelectasis in the right lung base is unchanged. Cardiomediastinal silhouette is unchanged from prior study. Left atrial appendage clip in place. Surgical sutures project over the right perihilar region. No acute bone abnormality. Status post sternotomy. XR/XR chest 2V IMPRESSION: No acute cardiopulmonary process. Electronically signed by: Luci Malone MD 02/10/2025 02:47 PM EST RP Dictated By: Luci Malone MD Signed By: <Electronically signed by Luci Malone MD in OV> 02/10/25 1447 DD/ 1431 TD/TT: 02/10/25 1435 Night Assistant: [place] [address] XRay Report Signed Patient: Angelia Goodman Sr MR#: [id number] : 1940 Acct:[id number] Age/Sex: 84 / M ADM Date: 02/10/25 Loc: HO.XRAY Attending Dr: Darryl Padilla MD Ordering Physician: Darryl Padilla MD Date of Service: 02/10/25 Procedure(s): XR chest 2V Accession Number(s): [id number] cc: Jordan Gabriel MD; Darryl Padilla MD Reason for Exam: I48 .21 - Permanent atrial fibrillation EXAMINATION: XR CHEST CLINICAL INFORMATION: I48.21 - Permanent a trial fibrillation. History of treatment for lung carcinoma. Right upper lobe resection. The left upper lobe wedge resection. COMPARISON: Radiographs on July 11, 2024.. Chest CT on May 13, 2024. TECHNIQUE: 2 views of the chest were obtained. FINDINGS: Postoperative change s in bilateral lungs. No confluent consolidation. Linear atelectasis i n the right lung base is unchanged. Cardiomediastinal silhouette is unchanged from prior study. Left atrial appendage clip in pl [place]. Surgical sutures project over the right perihilar region. No acute bone abnormality. Status post sternotomy. X R/XR chest 2V IMPRESSION: No acute cardiopulmo nary process. Electronically cole d by: Luci Malone MD 02/10/2025 02:47 PM EST RP Dictated By: Luci Malone MD Signed By: <Electronically signed by Luci Malone MD in OV> 02/10/25 1447 DD/ 1431 TD/TT: 02/10/25 1435 Night Assistant: Reason For Referral Reason please frederick tovar Diagnosis 1 Esophageal dysfuncti on (K22.4) Referral Organization Jordan Gabriel MD Referring Provider First Name Jordan Referring Provider Last Name Nery Referring Provider Speciality Internal edicine Referred Provider Anthony Curry Referred Provider Specialty Gastroentero logy General Notes Narda Elizabeth 0 05/22/2024 09:43:41 AM >info faxed, Narda Elizabeth 05/28/2024 02:48:10 PM >referral info mailed, Amelie Ramirez 07/20/2024 10:03:45 AM >OFFICE NOTE RECD Referral [...] HCl 500 MG TAKE 1 TABLET BY [facility] TWICE A DAY WITH MEALS Active FreeStyle [...] food Orally Once a day Active Nystatin 128707 UNIT/GM APPLY DAILY TO S KIN TO [...] 1 TABLET BY JANETH EVERY DAY Active Ventolin HFA 108 (90 Base) MCG/ACT 2 puffs as needed Inhalation every 4 hrs Not-Takin g Albuterol Sulfate HFA 108 (90 Base) MCG/ACT 1 puff as needed Inhalation every 4 hrs 12/08/2024 Active Symbicort 160-4.5 MCG/ACT 2 puffs Inhala tion Twice a day for 30 days 11/14/2017 Not-Taki ng Immunizations Vaccine Route Administration Date Status Comme nts Flu Vaccine Unknown 01/10/2012 Administered given at [facility] PPSV23 (Pnemovax) Unknown 01/10/2012 Administered given at [facility] Flu Vaccine Unknown 01/07/2014 Administered Flu Vaccine Unknown 12/31/2013 Administered received at [facility] Prevnar 13 IM Intramuscular 08/20/2014 Administered Flu Vaccine IM Intramuscular 12/22/2014 Administered pt re cieved high dose flu vaccine at [facility] in [place], Fluarix Quadrivalent Unknown 12/21/2015 Administered [facility] Unknown 01/26/2015 Administered [facility] Fluarix Quadrivalent IM Intramuscular 12/06/2016 Administe red PPSV23 (Pnemovax) IM Intramuscular 04/15/2017 Administered Influenza High Dose Unknown 12/17/2017 [facility] Flu[facility]ix Quadrivalent IM Intramuscular 12/19/2018 Adminvidya pearl pt was given the vaccine at [facility] in [place]. Influenza High Dose IM Intramuscular 12/04/2019 Administer [...] Problem Status W/U Status Risk Notes Problem 83374728 Type 2 diabetes mellitus without complications (E11.9) Active confirmed Problem Atrial fibrillation (37469316) Atrial fibrillation (I48.91) Active confirmed Problem Gout attack (272885047) Gout attack (M10.9) Active confirmed Problem 509869216 Paroxysmal atria l fibrillation (I48.0) Active confirmed Problem 4049740 Panlobular emphy sema (J43.1) Active confirmed Problem 89751502 Essential hypert ension (I10) Active confirmed Problem 689894840 Low HDL (under 4 0) (E78.6) Active confirmed Problem 683667711 Lung nodule (R91.1) Active confirmed Problem 932523977 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) Active confirmed Problem Chronic obstructive pulmonary disease with acute lower respiratory infection (830591117) COPD (chronic obstructive pulmonary disease) with acute bronchitis (J44.0) Active confirmed Problem 86889212 Iron deficiency anemia, unspecified iron deficiency anemia type (D50.9) Active confirmed Problem Claudication (79666032) Claudication (I73.9) Active confirmed Problem 517803920 Adenoma (D36.9) Active confirmed Problem 3513432317111718 Acute idiopathi c gout involving toe of left foot (M10.072) Active confirmed Problem 11762746 Lymphadenopathy, mediastinal (R59.0) Active confirmed Problem 076144302 Rising PSA level (R97.20) Active confirmed Problem 004414223 History of calcu leonard of gallbladder (Z87.19) Active confirmed Problem 996860444 Pure hypercholesterolemia (E78.00) Active confirmed Problem Gout (11928067) Acute gout of le ft foot, unspecified cause (M10.9) Active confirmed Problem 97995376 Hip arthritis (M16.10) Active confirme d Problem 220467240 Adenocarcinoma o f lung, 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) Active confirmed Problem 131981050 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 Problem 580073232 Esophageal dysfu nction (K22.4) Active confirmed Problem 902360434 Lower esophageal ring (Schatzki) (K22.2) Active confirmed [...] Gabriel MD [address] [place], [place] [id number] 05/12/2024 Jordan Gabriel Type 2 diabetes mina itus without complications E11.9 and Pure hypercholesterolemia E78.00 Jordan Gabriel MD [address] [place], [place] [id number] 10/09/2024 Jordan Gabriel Hyperkalemia E87.5 Jordan Gabriel MD [address] [place] [id number] 11/10/2024 Jordan Gabriel Type 2 diabetes mina itus without complications E11.9 ; Pure hypercholesterolemia E78.00 ; Rising PSA level R97.20 ; Iron deficiency anemia, unspecified iron deficiency anemia type D50.9 and Essential hypertension I10 Jordan Gabriel MD [address] [place] [id number] 11/24/2024 Jordan Gabriel Paroxysmal atrial fibrillation I48.0 Jordan Gabriel MD [address] [place] [id number] 11/24/2024 Jordan Gabriel Encounter for administration of vaccine Z23 Jordan Gabriel MD [address] [place] [id number] 05/19/2024 Jordan Gabriel Encounter for genera l adult medical examination with abnormal findings Z00.01 ; Esophageal dysfunction K22.4 ; Pure hypercholesterolemia E78.00 and Type 2 diabetes mellitus without complications E11.9 Jordan Gabriel MD [address] [place] [id number] 07/24/2024 Jordan Gabriel Gout attack M10.9 Jordan Gabriel MD [address] [place] [id number] 11/02/2024 Jordan Jeterardier Gout attack M10.9 an d Leg edema R60.0 Jordan Gabriel MD [address] [place] [id number] 11/09/2024 Jordan Gabriel Gout attack M10.9 an d Leg edema R60.0 Jordan Gabriel MD [address] [place] [id number] 11/17/2024 Jordan Gabriel Foot pain, right M79 .671 ; Paroxysmal atrial fibrillation I48.0 ; Elevated BUN R79.9 ; Type 2 diabetes mellitus without complications E11.9 ; Pure hypercholesterolemia E78.00 ; Essential hypertension I10 ; Iron deficiency anemia, unspecified iron deficiency anemia type D50.9 and COPD (chronic obstructive pulmonary disease) with acute bronchitis J44.0 Jordan Gabriel MD [address] [place] [id number] 12/08/2024 Jordan Gabriel Panlobular emphysema J43.1 ; Atrial fibrillation I48.91 and Edema R60.9 Jordan Gabriel MD [address] [place] [id number] 01/05/2025 Jordan Gabriel Paroxysmal atrial fibrillation I48.0 ; Essential hypertension I10 ; COPD (chronic obstructive pulmonary disease) with acute bronchitis J44.0 and Edema R60.9 Jordan Gabriel MD [address] [place] [id number] 07/17/2024 Jordan Gabriel MD [address] [place] [id number] 09/08/2024 Jordan Gabriel Assessments Encounter Date Diagnosis [...] being done today 11-02-2024 at 11am at [facility] , pending diagnostic testing [...] LEG LT VENOUS DOPPLER 11/02/2024 PFT 08/20/2014 Liver Panel 02/10/2025 TSH reflex Free T4 02/10/2025 CT chest w con 10/24/2023 US venous duplex LE LT 08/23/2020 XR chest 2V 02/10/2025 NT Pro B Type Natriuretic Pept CBC (INCLUDES DIFF/PLT) 08/30/2020 BUN 08/30/2020 CREATININE 08/30/2020 Next Appt Details Provider Name:Jordan ward, 03/09/2025 03:00:00 PM, [address] [place] [address], [address], [phone], Provider Name:Jordan ward, 05/21/2025 01:45:00 PM, [address] [place] [address], [address], [phone], Provider Name:Jordan ward, 11/15/2025 07:15:00 AM, [address] [place] [address], [phone], Provider Name:Jordan ward, 11/22/2025 10:30:00 AM, [address] [place] [address], [address], [phone], Insurance Providers Payer Name Payer Address Payer Phone Subscriber Number Group Number Insured Name Patient Relationship to Insured Coverage Start Date Coverage End Date MEDICARE NHIC FLIP [address] [place] [address] [id number] Maxine Anthony Self - patient is the insured [employer] [address] [place], [place] [id number] MaxineAnthony mae Self - patient is the insured Medical [...]
== END 2025-02-10 14:03 | disposition home or self-care (01) ==
LOC: HO.HCS 13:22
PROVIDERS: PCP Internal Medicine; Visit Provider Internal Medicine Cardiovascular Disease
DX: I50.30 Unspecified diastolic (congestive) heart failure (principal); I48.19 Other persistent atrial fibrillation; I25.10 Atherosclerotic heart disease of native coronary artery without angina pectoris
CPT/HCPCS: 93010; 99214; G2211

== ENCOUNTER → 2025-02-10 14:25 | Outpatient (BNV) | payer MEDICARE, SELFPAY | PROVIDERS: PCP Internal Medicine; Visit Provider Radiology Body Imaging | DX: I48.21 Permanent atrial fibrillation (principal) | CPT/HCPCS: 71046 ==

== ENCOUNTER → 2025-02-17 08:18 | Outpatient (REF) | payer MEDICARE, SELFPAY ==
--- OUTSIDE RECORDS SUMMARY | 2024-07-23 09:20 | XMS_ITS ---
Author Organization [facility] Address [address] [place] [address] Care Team Providers Care First Dyer Name Role Phone Jordan Gabriel MD Primary Care Provider Patito Carpenter Unavailable [phone] REASON FOR VISIT gerd,hx esophageal stricture,dysphagia Encounters Encounter Location Date Provider Diagnosis [facility] Out[place] [address] [place] [address] [place] [phone] 07/23/2024 Patito Andrews Esophageal strictu re K22.2 and Hiatal hernia K44.9 Assessments Encounter Date Diagnosis (ICD Code) Assessment Notes Treatment Notes Treatment Clinical Notes Section Notes 07/23/2024 Esophageal stricture (ICD-10 - K22.2) 07/23/2024 Hiatal hernia (ICD-10 - K44.9) Plan Of Treatment No Information Progress Notes * PATITO BUSTILLO CDOB:1939 (84 yo M)Acc No.[id number]:07/23/2024 EGD/MAC Patient: Carlota BRICENO PATITO Buckley Provider: Jose Francisco Andrews MD :1940 A ge:84 Y S ex:Male Date:07/23/2024 Address: [id number] Pcp:Jordan Gabriel MD Subjective: * Chief Complaints: * G erd,hx esophageal stricture,dysphagia Assessment: * Assessment: 1. E sophageal stricture - K22.2 (Primary) 2 . H iatal hernia - K44.9 ? Plan: * Procedure Codes: 4 3249 ESOPH ENDOSCOPY, DILATION Billing Information: * Procedure Codes: 76706 ESOPH ENDOSCOPY, DILATION. * The named appointment provid er may or may not be the originator of this progress note, and it is not deemed complete until electronically signed by the appointment provider. Sign off status: Pending * Provider: Jose Francisco Andrews MD Date: 0 07/23/2024 Generated for Gautam oh/Isaac/Editting on: 04/19/2024 08:35 AM EST
--- OUTSIDE RECORDS SUMMARY | 2024-09-08 05:04 | XMS_ITS ---
Author Organization Jordan Gabriel MD Address [address] [place] [phone] Care Team Providers Care Crawler Tractor Operator Name Role Phone Jordan Gabriel Primary Care Provider REASON FOR VISIT Ct Chest due Encounters Encounter Location Date Provider Diagnosis Jordan Gabriel MD [address] [place] [phone] 09/08/2024 Jordan Gabriel Plan Of Treatment Next Appt Details Provider Name:Jordan Cyr ier, 03/09/2025 03:00:00 PM, [address], [place], [place], [phone], Provider Name:Jordan Cyr ier, 05/21/2025 01:45:00 PM, [address], [place], [phone], Provider Name:Jordan Cyr ier, 11/15/2025 07:15:00 AM, [address], [address], [place], [phone], Provider Name:Jordan Cyr ier, 11/22/2025 10:30:00 AM, [address], [place], [place], [phone], Progress Notes * Anthony GOODMAN CDOB:1939 (84 yo M)Acc No.[id number]:09/08/2024 Patient: Anthony GARCIA :1940 A ge:84 Y S ex:Male Address: [place] [address] * true * Date: Generated for Gautam oh/Isaac/eTransmitting on: 04/19/2024 08:35 AM EST
--- OUTSIDE RECORDS SUMMARY | 2024-10-09 04:00 | XMS_ITS ---
Author Organization Jordan Gabriel MD Address [address] [place] [phone] Care Team Providers Care Color Specialist Name Role Phone Nery Jordan Primary Care Provider Results Component Value Reference Range Notes Potassium Reviewed date:10/09/2024 12:34:47 PM Interpretation: Performing Lab:[facility], [address] [place] [phone] Notes/Report: Potassium 5.0 3.3-5.1 mmol/L REASON FOR VISIT Potassium Encounters Encounter Location Date Provider Diagnosis Jordan Gabriel MD [address] [place] [phone] 10/09/2024 Jordan Gabriel Hyperkalemia E87.5 Assessments Encounter Date Diagnosis (ICD Code) Assessment Notes Treatment Notes Treatment Clinical Notes Section Notes 10/09/2024 Hyperkalemia (ICD-10 - E87.5) Plan Of Treatment Next Appt Details Provider Name:Jordan Cyr yoonr, 03/09/2025 03:00:00 PM, [address] [place] [address], Suite [facility], [place], [place], [phone], Provider Name:Jordan Cyr ier, 05/21/2025 01:45:00 PM, 10 [facility], Suite [facility], [place], [place], [phone], Provider Name:Jordan nettlesr, 11/15/2025 07:15:00 AM, [address] [place] [address], Suite [facility], [place], [place], [phone], Provider Name:Jordan Cyr yoonr, 11/22/2025 10:30:00 AM, [address] [place] [address], Suite [facility], [place], [place], [phone], Progress Notes * KENYAnthony AYERS CDOB:1939 (84 yo M)Acc No.[id number]:10/09/2024 Progress Note Patient: Anthony GARCIA Provider: Emery Gabriel MD :1940 A ge:84 Y S ex:Male Date:10/09/2024 Address:[address] [place] [address] [facility] Subjective: * Chief Complaints: * 1 . [...] 10/09/2024 Generated for Gautam oh/Isaac/Esequiel on: 1 04/19/2024 08:35 AM EST
--- OUTSIDE RECORDS SUMMARY | 2024-11-02 04:45 | XMS_ITS ---
Author Organization Jordan Gabriel MD Address [address] [place] [phone] Care Team Providers Care Detailer Name Role Phone Jordan Gabriel Primary Care Provider [phone] Allergies No Known Allergies REASON FOR VISIT R FT GOUT, SWELLING LEFT LEG, Accompanied by Medications Medication SIG (Take, Route, Frequency, Duration) Notes Start Date End Date Status Lisinopril 20 MG TAKE 1 TABLET BY JANETH TH EVERY DAY for 90 Active metFORMIN HCl 500 MG TAKE 1 TABLET BY MO UTH TWICE A DAY WITH MEALS for 90 Active Ventolin HFA 108 (90 Base) MCG/ACT 2 puffs as needed Inhalation every 4 hrs Not-Takin g predniSONE 10 MG 1 tablet with food o r milk Orally 4 tabs for 3 days,3tabs for 3 days, 2 tabs for 3 days, and 1 tab for 3 days for 14 days 07/24/2024 Not-Taking Symbicort 160-4.5 MCG/ACT 2 puffs Inhala tion Twice a day for 30 days 11/14/2017 Not-Taki ng Xarelto 20 MG 1 tablet with food Orally Once a day Active Ferrous Sulfate 325 (65 Fe) MG 1 tablet Orally BID Active Nystatin 921525 UNIT/GM 1 application Externally Twice a day for 14 days 04/28/2019 Active Albuterol Sulfate HFA 108 (90 Base) MCG/ACT 1 puff as needed Inhalation every 4 hrs 04/13/2022 Active Omeprazole 20 MG 1 capsule Orally Onc e a day Active FreeStyle Lite Test 0 as directed In Vit ro DX: E 11.9 use tot test blood sugar once a day for 30 days 01/17/2016 Active FreeStyle Lite 0 as directed invitro DX: E 11.9 once a day for 30 days 01/17/2016 Active predniSONE 10 MG 1 tablet with food o r milk Orally 4 tabs for 3 days,3tabs for 3 days, 2 tabs for 3 days, and 1 tab for 3 days for 14 days 11/02/2024 Active Furosemide 40 MG 1 tablet Orally Once a day for 30 day(s) 11/02/2024 Active Atorvastatin Calcium 80 MG 1 tablet Orally Once a day Active Benadryl Allergy 25 MG 1 tablet as neede d Orally every 8 hrs Not-Taking Vital Signs Blood pressure systolic 122 mm Hg 11/03/19 25 Blood pressure diastolic 60 mm Hg 025 Height 71 in 11/02/2024 Weight 202 lbs 11/02/2024 BMI 28.17 kg/m2 11/02/2024 weight is up 6 pounds since 07-24-24 Encounters Encounter Location Date Provider Diagnosis Jordan Gabriel MD 10 [facility] [address] [place] [phone] 11/02/2024 Jordan Gabriel Gout attack M10.9 and Leg edema R60.0 Assessments Encounter Date Diagnosis (ICD Code) Assessment Notes Treatment Notes Treatment Clinical Notes Section Notes 11/02/2024 Gout attack (ICD-10 - M10.9) patient verbalized nderstanding of medication and directions for use 11/02/2024 Leg edema (ICD-10 - R60.0) being done today 11-02-2024 at 11am at [facility] , pending diagnostic testing Plan Of Treatment Medication Medication Name Sig Start Date Stop Date Notes predniSONE 10 MG 1 tablet with food o r milk Orally 4 tabs for 3 days,3tabs for 3 days, 2 tabs for 3 days, and 1 tab for 3 days for 14 days 11/02/2024 Furosemide 40 MG 1 tablet Orally Once a day for 30 day(s) 11/02/2024 Treatment Notes Assessment Notes Gout attack patient verbalized n derstanding of medication and directions for use Leg edema being done today 10-23 at [address]am [address] [facility] , pending diagnostic testing Pending Test Test Name Order Date US LEG LT VENOUS DOPPLER 11/02/2024 Next Appt Details Follow Up: 1 Week, Reason: Provider Name:Jordan ward, 03/09/2025 03:00:00 PM, [address] [place] [address], [address], [phone], Provider Name:Jordan ward, 05/21/2025 01:45:00 PM, [address] [place] [address], [address], [phone], Provider Name:Jordan ward, 11/15/2025 07:15:00 AM, [address] [place] [address], [address], [phone], Provider Name:Jordan ward, 11/22/2025 10:30:00 AM, [address] [place] [address], [phone], Progress Notes * Anthony GOODMAN CDOB:1939 (84 yo M)Acc No.[id number]:11/02/2024 Progress Notes Patient: Anthony GARCIA Provider: Emery Gabriel MD :1940 A ge:84 Y S ex:Male Date:11/02/2024 Address: [place], [id number] Subjective: * Chief Complaints: * R FT GOUT, SWELLING LEFT LEGAccompanied by * HPI: S ymptom(s): patient is a 84 yo male here with complaint rt foot had gout and has come back feels like the same thing started yesterday. left leg has always been a little swollen since his hip surgery. since august it has been swollen and it comes and goes. no pain. * ROS: G eneral/Constitutional: Denies C hills. D enies F atigue. D enies F ever. D enies H eadache. E NT: Denies S ore throat. R espiratory: Denies C ough. D enies S hortness of breath at rest. D enies S hortness of breath with exertion. C ardiovascular: Denies C hest pain at rest. D enies C hest pain with exertion. D enies D izziness. A dmits F luid accumulation in the legs, c /o left leg edema . G astrointestinal: Denies D iarrhea. D enies N ausea. * Medical History: * Surgical History: * Hospitalization/Major Diagno stic Procedure: * Medications: T akingFreeStyle Lite 0 Device as directed invitro DX: [...] as needed Inhalation every 4 hrs Nystatin 147721 UNIT/GM Cream 1 application Externally Twice a [...] needed Inhalation every 4 hrs Taking Nystatin 052750 UNIT/GM Cream 1 application Externally Twice a day Taking metFORMIN HCl 500 MG Tablet TAKE 1 TABLET BY MOUTH TWICE A DAY WITH MEALS Taking Lisinopril 20 MG Tablet TAKE 1 TABLET BY MOUTH EVERY DAY Not-Taking/PRNpredniSONE 10 MG Tablet 1 tablet with food or milk Orally 4 tabs for 3 days,3tabs for 3 days, 2 tabs for 3 days, and 1 tab for 3 days Ventolin HFA 108 (90 Base) MCG/ACT Aerosol Solution 2 puffs as needed Inhalation every 4 hrs Symbicort 160-4.5 MCG/ACT Aerosol 2 puffs Inhalation Twice a day Benadryl Allergy 25 MG Tablet 1 tablet as needed Orally every 8 hrs Medication List reviewed and reconciled with the patientNot-Taking/PRN predniSONE 10 MG Tablet 1 tablet with food or milk Orally 4 tabs for 3 days,3tabs for 3 days, 2 tabs for 3 days, and 1 tab for 3 days Not-Taking/PRN Ventolin HFA 108 (90 Base) MCG/ACT Aerosol Solution 2 puffs as needed Inhalation every 4 hrs Not-Taking/PRN Symbicort 160-4.5 MCG/ACT Aerosol 2 puffs Inhalation Twice a day Not-Taking/PRN Benadryl Allergy 25 MG Tablet 1 tablet as needed Orally every 8 hrs Medication List reviewed and reconciled with the patient * Allergies: N .K.D.A.yes[Allergies Verified] Objective: * Vitals: H t: 71, Wt: 202, BMI:28.17, BP:122/60, Wt-k.63. weight is up 6 pounds since 07-24-24. * Examination: G eneral Examination: GENERAL APPEARANCE: a lert, well hydrated, in no distress.? EXTREMITIES: a bnormal rt foot is painful. left leg with marked edema and no pain.. Assessment: * Assessment: 1. G out attack - M10.9 (Primary) 2 . L eg edema - R60.0 Plan: * Treatment: 2. L eg edema Start Furosemide Tablet, 40 MG, 1 tablet, Orally, Once a day, 30 day(s), 30. I maging: US LEG LT VENOUS DOPPLER Notes: being done today 11-02-2024 at [address] [facility] , pending diagnostic testing * Procedure Codes: * Follow Up: 1 Week * * Sign off status: Completed true * Provider: Emery Gabriel MD Date: 0 11/02/2024 Generated for Gautam oh/Isaac/Editting on: 04/19/2024 08:35 AM EST History and Physical Notes * HPI (History of Present Illness) Category Sub-Category Detail Notes Category Not es Symptom(s) patient is a 84 yo male here with complaint rt foot had gout and has come back feels like the same thing started yesterday. left leg has always been a little swollen since his hip surgery. since august it has been swollen and it comes and goes. no pain Examination Category Sub-Category Detail Notes Category Not es General Examination GENERAL APPEARANCE: alert, w ell hydrated, in no distress EXTREMITIES: abnormal rt foot is painful. left leg with marked edema and no pain.
--- OUTSIDE RECORDS SUMMARY | 2024-11-09 06:45 | XMS_ITS ---
Author Organization Jordan Gabriel MD Address [address] [place] [address] [phone] Care Team Providers Care Glue Spreader Name Role Phone Jordan Gabriel Primary Care Provider Allergies No Known Allergies REASON FOR VISIT 1 week Medications Medication SIG (Take, Route, Frequency, Duration) Notes Start Date End Date Status Benadryl Allergy 25 MG 1 tablet as neede d Orally every 8 hrs Not-Taking predniSONE 10 MG 1 tablet with food o r milk Orally 4 tabs for 3 days,3tabs for 3 days, 2 tabs for 3 days, and 1 tab for 3 days for 14 days 11/02/2024 Active FreeStyle Lite 0 as directed invitro DX: E 11.9 once a day for 30 days 01/17/2016 Active Ventolin HFA 108 (90 Base) MCG/ACT 2 puffs as needed Inhalation every 4 hrs Not-Taknita g Symbicort 160-4.5 MCG/ACT 2 puffs Inhala tion Twice a day for 30 days 11/14/2017 Not-Guillermo ng Nystatin 870600 UNIT/GM 1 application Externally Twice a day for 14 days 04/28/2019 Active metFORMIN HCl 500 MG TAKE 1 TABLET BY [place] [facility] TWICE A DAY WITH MEALS for 90 Active Albuterol Sulfate HFA 108 (90 Base) MCG/ACT 1 puff as needed Inhalation every 4 hrs 04/13/2022 Active Lisinopril 20 MG TAKE 1 TABLET BY [facility] EVERY DAY for 90 Active predniSONE 10 MG 1 tablet with food o r milk Orally 4 tabs for 3 days,3tabs for 3 days, 2 tabs for 3 days, and 1 tab for 3 days for 14 days 07/24/2024 Not-Taking Ferrous Sulfate 325 (65 Fe) MG 1 tablet Orally BID Active Xarelto 20 MG 1 tablet with food Orally Once a day Active Atorvastatin Calcium 80 MG 1 tablet Orally Once a day Active Omeprazole 20 MG 1 capsule Orally Onc e a day Active FreeStyle Lite Test 0 as directed In Vit ro DX: E 11.9 use tot test blood sugar once a day for 30 days 01/17/2016 Active Vital Signs Blood pressure systolic 102 mm Hg 11/10/19 25 Blood pressure diastolic 60 mm Hg 025 Heart Rate 110 /min 11/09/2024 Height 71 in 11/09/2024 Weight 200 lbs 11/09/2024 BMI 27.89 kg/m2 11/09/2024 weight is down 2 pounds [facility] e 11-02-24 Encounters Encounter Location Date Provider Diagnosis Jordan Gabriel MD [address] [facility] [address] [place] [address] [phone] 11/09/2024 Jordan Gabriel Gout attack M10.9 and Leg edema R60.0 Assessments Encounter Date Diagnosis (ICD Code) Assessment Notes Treatment Notes Treatment Clinical Notes Section Notes 11/09/2024 Gout attack (ICD-10 - M10.9) has resolved, patient verbalized understanding to stop medication 11/09/2024 Leg edema (ICD-10 - R60.0) started to go away with the prednisone, has resolved Plan Of Treatment Medication Medication Name Sig Start Date Stop Date Notes Furosemide 40 MG 1 tablet Orally Once a day 11/02/2024 Treatment Notes Assessment Notes Gout attack has resolved, patien t verbalized understanding to stop medication Leg edema started to go away w ith the prednisone, has resolved Next Appt Details Follow Up: 6 Weeks, Reason: Provider Name:Jordan Cyr ier, 03/09/2025 03:00:00 PM, [address] [place] [address], [address], [phone], Provider Name:Jordan Cyr ier, 05/21/2025 01:45:00 PM, [address] [place] [address], [address], [phone], Provider Name:Jordan Cyr ier, 11/15/2025 07:15:00 AM, [address] [place] [address], [address], [phone], Provider Name:Jordan nettlesr, 11/22/2025 10:30:00 AM, [address] [place] [address], [address], [phone], Progress Notes * Anthony GOODMAN CDOB:1939 (84 yo M)Acc No.[id number]:11/09/2024 Patient: Anthony GARCIA Provider: Emery Gabriel MD :1940 A ge:84 Y S ex:Male Date:11/09/2024 [facility] Subjective: * Chief Complaints: * 1 week * HPI: S ymptom(s): patient is a 84 yo male here for one week follow up visit/ took lasix and legas are b ack to normal. took the prednisone and the swelling started to go down. foot is better now. still on prednisone. * ROS: G eneral/Constitutional: Denies C hills. D enies F atigue. D enies F ever. D enies H eadache. E NT: Denies S ore throat. R espiratory: Denies C ough. D enies S hortness of breath at rest. D enies S hortness of breath with exertion. C ardiovascular: Denies C hest pain at rest. D enies C hest pain with exertion. D enies F luid accumulation in the legs. D enies S hortness of breath.? G astrointestinal: Denies D iarrhea. D enies [...] as needed Inhalation every 4 hrs Nystatin 752125 UNIT/GM Cream 1 application Externally Twice a day metFORMIN HCl 500 MG Tablet TAKE 1 TABLET BY MOUTH TWICE A DAY WITH MEALS Lisinopril 20 MG Tablet TAKE 1 TABLET BY MOUTH EVERY DAY predniSONE 10 MG Tablet 1 tablet with food or milk Orally 4 tabs for 3 days,3tabs for 3 days, 2 tabs for 3 days, and 1 tab for 3 days Furosemide 40 MG Tablet 1 tablet Orally Once a day Taking FreeStyle Lite 0 Device as directed [...] needed Inhalation every 4 hrs Taking Nystatin 032501 UNIT/GM Cream 1 application Externally Twice a day Taking metFORMIN HCl 500 MG Tablet TAKE 1 TABLET BY MOUTH TWICE A DAY WITH MEALS Taking Lisinopril 20 MG Tablet TAKE 1 TABLET BY MOUTH EVERY DAY Taking predniSONE 10 MG Tablet 1 tablet with food or milk Orally 4 tabs for 3 days,3tabs for 3 days, 2 tabs for 3 days, and 1 tab for 3 days Taking Furosemide 40 MG Tablet 1 tablet Orally Once a day Not-Taking/PRNpredniSONE 10 MG Tablet 1 tablet with [...] tablet as needed Orally every 8 hrs Not-Taking/PRN predniSONE 10 MG Tablet 1 tablet with [...] tablet as needed Orally every 8 hrs * Allergies: N .K.D.A.yes[Allergies Verified] Objective: * Vitals: H t: 71, Wt: 200, BMI:27.89, BP:102/60, HR:110, Wt-k.72. weight is down 2 pounds since 11-02-24. * Examination: G eneral Examination: GENERAL APPEARANCE: a lert, well hydrated, in no distress.? SKIN: g ood turgor. HEART: n o murmurs, rubs, gallops, regular rate and rhythm.? LUNGS: n o wheezes, rales, rhonchi, good air movement, clear to auscultation bilaterally. EXTREMITIES: n o edema. Assessment: * Assessment: 1. G out attack - M10.9 (Primary) 2 . L eg edema - R60.0 Plan: * Treatment: 2. L eg edema Notes: started to go away with the prednisone, has resolved * Procedure Codes: * Follow Up: 6 Weeks * * Sign off status: Completed true * Provider: Emery Gabriel MD Date: 0 11/09/2024 Generated for Gautam oh/Isaac/Editting on: 1 04/19/2024 08:36 AM EST History and Physical Notes * HPI (History of Present Illness) Category Sub-Category Detail Notes Category Not es Symptom(s) patient is a 84 yo male here for one week follow up visit/ took lasix and legas are b ack to normal. took the prednisone and the swelling started to go down. foot is better now. still on prednisone Examination Category Sub-Category Detail Notes Category Not es General Examination GENERAL APPEARANCE: alert, w ell hydrated, in no distress HEART: no murmurs, rubs, ga llops, regular rate and rhythm LUNGS: no wheezes, rales, r honchi, good air movement, clear to auscultation bilaterally SKIN: good turgor EXTREMITIES: no edema
--- OUTSIDE RECORDS SUMMARY | 2024-11-10 03:00 | XMS_ITS ---
Author Organization Jordan Gabriel MD Address [address] [place] [phone] Care Team Providers Care Big Data Developer Name Role Phone Jordan Gabriel Primary Care Provider Results Component Value Reference Range Notes Complete Blood Count Auto Di ff Reviewed date:11/10/2024 04:43:39 PM Interpretation: Performing Lab:[facility], [address] [place] [phone] Notes/Report: White Blood Count 14.2 4.8-10.8 X10*3/uL [...] NRBC Abs Auto 0.000 0.0-0.012 X10*3/uL Comprehensive [place]. Panel Fa st Reviewed date:12/08/2024 12:40:38 PM Interpretation:12-08-2024 Performing Lab:[facility], [address] [place] [phone] Notes/Report: Sodium 136 135-145 mmol/L Potassium 4.7 [...] PROFILE Reviewed date:11/10/2024 12:58:08 PM Interpretation: Performing Lab:[facility], [address] [place] [phone] Notes/Report: Iron 49 45-160 mcg/dL Total Iron Binding Capacity 282 228-428 mcg/d L Percent Iron Saturation 17 15-50 % Unsaturated Iron Binding 233 Lipid Panel Reviewed date:11/10/2024 12:57:18 PM Interpretation: Performing Lab:[facility], [address] [place] [phone] Notes/Report: Triglycerides 81 <150 mg/dL Desirable Triglyceride: [...] (Free>4and<10) Reviewed date:11/10/2024 01:00:52 PM Interpretation: Performing Lab:[facility], [address] [place] [phone] Notes/Report: PSA,Total (Free>4and<10) 2.37 0.00-4.00 ng/mL A [...] Random Reviewed date:11/10/2024 04:33:57 PM Interpretation: Performing Lab:[address] [phone] Notes/Report: Creatinine Urine 44.71 Microalbumin Urine 9.0 Microalbum/Creatinine Ratio Ur 20.1 <30 ug/mg cr Albumin/Creatinine Ratio Reference Ranges: Normal: < 30 ug/mg creatinine Microalbuminuria: 30 - 300 ug/mg creatinine Clinical Albuminuria: > 300 ug/mg creatinine Hemoglobin A1c Reviewed date:11/10/2024 12:57:28 PM Interpretation: Performing Lab:[address] [phone] Notes/Report: Hemoglobin A1c % 6.5 <6.0 % [...] average glucose, using the formula of the S6Y-Nadthyh Average Glucose study (ADAG), Diabetes Care, Vol.31,#8, Oct. 2007 UA ClnCatch+Micro w/rflx Cul t Reviewed date:11/11/2024 12:30:51 PM Interpretation: Performing Lab:[facility], [address] [place] [phone] Notes/Report: Urine, Clean Catch Color Urine Yellow Appearance Urine Clear PH 5.5 5.0-9.0 Glucose Urine UA Negative Negative mg/dL Urine Blood Negative Negative Specific [place] - Urine 1.010 1.005-1.025 Urine Protein Negative [...] Location Date Provider Diagnosis Jordan Gabriel MD [address] [place] [phone] 11/10/2024 Jordan Gabriel Type 2 diabetes mina [...] Details Provider Name:Jordan ward, 03/09/2025 03:00:00 PM, [address] [place] [address], [address], [phone], Provider Name:Jordan ward, 05/21/2025 01:45:00 PM, [address] [place] [address], [address], [phone], Provider Name:Jordan ward, 11/15/2025 07:15:00 AM, [address] [place] [address], [phone], Provider Name:Jordan ward, 11/22/2025 10:30:00 AM, [address] [place] [address], [phone], Progress Notes * Anthony GOODMAN CDOB:1939 (84 yo M)Acc No.[id number]:11/10/2024 Progress Note Patient: Anthony GARCIA Provider: Emery Gabriel MD :1940 A ge:84 Y S ex:Male Date:11/10/2024 [id number] Subjective: * Chief Complaints: * 1 . [...] - 11/10/2024 08:00 AM) L AB: Comprehensive [place]. Panel Fast (Collection Date & Time - [...] - 11/10/2024 08:00 AM) L AB: Comprehensive [place]. Panel Fast (Collection Date & Time - [...] - 11/10/2024 08:00 AM) L AB: Comprehensive [place]. Panel Fast (Collection Date & Time - [...] - 11/10/2024 08:00 AM) L AB: Comprehensive [place]. Panel Fast (Collection Date & Time - [...] 11/10/2024 Generated for Gautam oh/Isaac/Esequiel on: 1 04/19/2024 08:37 AM EST
--- OUTSIDE RECORDS SUMMARY | 2024-11-17 05:30 | XMS_ITS ---
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 Name Role Phone Jordan Gabriel Primary Care Provider Allergies No Known Allergies Results Component Value Reference Range Notes XR foot RT 2V Reviewed date:11/17/2024 04:42:26 PM Interpretation: Performing Lab: Notes/Report: [address] [address] XRay Report Signed Patient: Anthony Goodman MR#: [id number] : 1940 Acct:[id number] Age/Sex: 84 / M ADM Date: 11/17/24 Loc: HO.XRAY Attending Dr: Jordan Gabriel MD Ordering Physician: Jordan Gabriel MD Date of Service: 11/17/24 Procedure(s): XR foot RT 2V Accession Number(s): [id number] cc: Jordan Gabriel MD EXAMINATION: XR FOOT 1-2 VIEWS RIGHT HISTORY: PAIN COMPARISON: There are no prior studies available for comparison. FINDINGS: AP and lateral views of the right foot are submitted. Osseous mineralization is normal. There is no fracture or dislocation. 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 There is a plantar calcaneal spur. The soft tissues are unremarkable. 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 Electronically signed by: Anthony Bennett MD 11/17/2024 11:37 AM EDT Dictated By: Anthony Bennett MD Signed By: <Electronically signed by Anthony Bennett MD in OV> 11/17/24 1137 DD/ 1115 TD/TT: 11/17/24 1123 Director Of Product Development: [place] [id number] XRay Report Signed Patient: Angelia Goodman Sr MR#: [id number] : 1940 Acct:[id number] Age/Sex: 84 / M ADM Date: 11/17/24 Loc: HO.XRBRADEN Attending Dr: Jordan Gabriel MD Ordering Physician: Jordan Gabriel MD Date of Service: 11/17/24 Procedure(s): XR foot RT 2V Accession Number(s): [id number] cc: Jordan Gabriel MD EXAMINATION: XR FOOT 1-2 VIEWS RIGHT HISTORY: PAIN COMPARISON: There ar e no prior studies available for comparison. FINDINGS: AP and lateral views of the right foot are submitted. Osseous mineralization is no rmal. There is no fracture or dislocation. There is mild to moderate degenerative change of the 1st MTP joint, with joint space narrowin g and osteophyte formation. There is a plantar calcaneal spur. The soft tissues are unremarkable. X R/XR foot RT 2V IMPRESSION: Mild to moderate deg enerative change of the 1st MTP joint. Electronically cole d by: Anthony Bennett MD 11/17/2024 11:37 AM EDT RP Dictated By: Anthony Bennett MD Signed By: <Litzy field signed by Anthony Bennett MD in OV> 11/17/24 1137 DD/ 1115 TD/TT: 11/17/24 1123 Director Of Product Development: Reason For Referral Reason I48.[address]. Gabriel and Dr. Padilla spoke regarding patient's issue, was told Dr. Padilla office would be calling patient with an appt Diagnosis 1 Paroxysmal atrial fi brillation (I48.0) Referral Organization Jordan Gabriel MD Referring Provider First Name Jordan Referring Provider Last Name Nery Referring Provider Speciality Internal M edicine Referred Provider Darryl Padilla Referred Provider Specialty Cardiovascul ar Disease General Notes Narda Elizabeth 0 12/11/2024 10:55:39 AM > had his holter monitor on 12-03-[address] Padilla for follow up Referral Priority Routine Referral Appointment Date 12/03/2024 REASON FOR VISIT COMP EXAM/must Comp met labs Medications Medication SIG (Take, Route, Frequency, Duration) Notes Start Date End Date Status Nystatin 161281 UNIT/GM 1 application Externally Twice a day for 14 days 04/28/2019 Active Lisinopril 20 MG TAKE 1 TABLET BY JANETH EVERY DAY Active Omeprazole 20 MG 1 capsule Orally Onc e a day Active FreeStyle Lite Test 0 as directed In Vit ro DX: E 11.9 use tot test blood sugar once a day for 30 days 01/17/2016 Active metFORMIN HCl 500 MG TAKE 1 TABLET BY MO [facility] TWICE A DAY WITH MEALS Active Albuterol Sulfate HFA 108 (90 Base) MCG/ACT 1 puff as needed Inhalation every 4 hrs 04/13/2022 Active Xarelto 20 MG 1 tablet with food Orally Once a day Active Ferrous Sulfate 325 (65 Fe) MG 1 tablet Orally BID Active FreeStyle Lite 0 as directed invitro DX: E 11.9 once a day for 30 days 01/17/2016 Active Metoprolol Succinate ER 25 MG 1 tablet Orally Once a day for 30 days 11/17/2024 Active Benadryl Allergy 25 MG 1 tablet as neede d Orally every 8 hrs Not-Taking Ventolin HFA 108 (90 Base) MCG/ACT 2 puffs as needed Inhalation every 4 hrs Not-Takin g Symbicort 160-4.5 MCG/ACT 2 puffs Inhala tion Twice a day for 30 days 11/14/2017 Not-Taki ng Atorvastatin Calcium 80 MG 1 tablet Orally Once a day Active predniSONE 10 MG 1 tablet with food o r milk Orally 4 tabs for 3 days,3tabs for 3 days, 2 tabs for 3 days, and 1 tab for 3 days for 14 days 07/24/2024 Not-Taking Social History Tobacco Use: Social History Observation [...] Interpretation Negative Vital Signs Blood pressure systolic 102 mm Hg 11/18/19 25 Blood pressure diastolic 50 mm Hg 025 Heart Rate 110 /min 11/17/2024 Height 71 in 11/17/2024 Weight 201 lbs 11/17/2024 BMI 28.03 kg/m2 11/17/2024 Encounters Encounter Location Date Provider Diagnosis Jordan Gabriel MD [address] [place] [address] [place] [phone] 11/17/2024 Jordan Gabriel Foot pain, right M79 .671 ; Paroxysmal atrial fibrillation I48.0 ; Elevated BUN R79.9 ; Type 2 diabetes mellitus without complications E11.9 ; Pure hypercholesterolemia E78.00 ; Essential hypertension I10 ; Iron deficiency anemia, unspecified iron deficiency anemia type D50.9 and COPD (chronic obstructive pulmonary disease) with acute bronchitis J44.0 Assessments Encounter Date Diagnosis (ICD Code) Assessment Notes Treatment Notes Treatment Clinical Notes Section Notes 11/17/2024 Foot pain, right (ICD-10 - M79.671) order given to patient 11/17/2024 Paroxysmal atrial fibrillation (ICD-10 - I48.0) getting ecg and back to dr padilla/salena ecg with regular rythm but is rapid afib. , patient verbalized understandngof medication and directions for use 11/17/2024 Elevated BUN (ICD-10 - R79.9) probably from the lasix. which has been stopped , pending labs 11/17/2024 Type 2 diabetes mellitus without complications (ICD-10 - E11.9) stable, will cntonue current regiment 11/17/2024 Pure hypercholesterolemia (ICD-10 - E78.00) stable, will continue current regiment 11/17/2024 Essential hypertensi on (ICD-10 - I10) doing well, will contnue current regiment and will continue to monitor 11/17/2024 Iron deficiency anem ia, unspecified iron deficiency anemia type (ICD-10 - D50.9) stable, will continue current regiment and will continue to monitor 11/17/2024 COPD (chronic obstructive pulmonary disease) with acute bronchitis (ICD-10 - J44.0) stable, will continue current regiment Plan Of Treatment Medication Medication Name Sig Start Date Stop Date Notes Lisinopril 20 MG TAKE 1 TABLET BY JANETH TH EVERY DAY metFORMIN HCl 500 MG TAKE 1 TABLET BY MO [facility] TWICE A DAY WITH MEALS Albuterol Sulfate HFA 108 (9 0 Base) MCG/ACT 1 puff as needed Inhalation every 4 hrs 04/13/2022 Xarelto 20 MG 1 tablet with food O rally Once a day Ferrous Sulfate 325 (65 Fe) MG 1 tablet Orally BID Metoprolol Succinate ER 25 MG 1 tablet O rally Once a day for 30 days 11/17/2024 Atorvastatin Calcium 80 MG 1 tablet Orally Once a day Treatment Notes Assessment Notes Foot pain, right order given to patie nt Paroxysmal atrial fibrillation getting e cg and back to dr padilla/salena ecg with regular rythm but is rapid afib. , patient verbalized understandngof medication and directions for use Elevated BUN probably from the la six. which has been stopped , pending labs Type 2 diabetes mellitus without complic ations stable, will cntonue current regiment Pure hypercholesterolemia stable, will c ontinue current regiment Essential hypertension doing well, will contnue current regiment and will continue to monitor Iron deficiency anemia, unsp ecified iron deficiency anemia type stable, will continue current regiment and will continue to monitor COPD (chronic obstructive pu lmonary disease) with acute bronchitis stable, will continue current regiment Pending Test Test Name Order Date Electrocardiogram (EKG) 11/17/2024 Referrals Referral Date Details 11/17/2024 11/17/2024, I48.[address] fibrillation Dr. Gabriel and Dr. Padilla spoke regarding patient's issue, was told Dr. Padilla office would be calling patient with an appt, Darryl Padilla Next Appt Details Follow Up: 3 Weeks, Reason: Provider Name:Jordan nettlesr, 03/09/2025 03:00:00 PM, [address] [place] [address], [address], [phone], Provider Name:Jordan ward, 05/21/2025 01:45:00 PM, [address] [place] [address], [address], [phone], Provider Name:Jordan ward, 11/15/2025 07:15:00 AM, [address] [place] [address], [address], [phone], Provider Name:Jordan nettlesr, 11/22/2025 10:30:00 AM, [address] [place] [address], [address], [phone], Progress Notes * Anthony GOODMAN CDOB:1939 (84 yo M)Acc No.[id number]:11/17/2024 Patient: Anthony GARCIA Ina Provider: Emery Gabriel MD :1940 A ge:84 Y S ex:Male Date:11/17/2024 Address: [id number] Subjective: * Chief Complaints: * C OMP EXAM/must Comp met labs * HPI: D epression Screening: PHQ-9 L ittle interest or pleasure in doing things N ot at all, F eeling down, depressed, or hopeless N ot at all, T rouble falling or staying asleep, or sleeping too much N ot at all, F eeling tired or having little energy N ot at all, P oor appetite or overeating N ot at all, F eeling bad about yourself or that you are a failure, or have let yourself or your family down N ot at all, T rouble concentrating on things, such as reading the newspaper or watching television N ot at all, M oving or speaking so slowly that other people could have noticed; or the opposite, being so fidgety or restless that you have been moving around a lot more than usual N ot at all, T houghts that you would be better off or of hurting yourself in some way N ot at all, T otal Score 0 . I nterpretation and Intervention D epression Screening Findings N egative, F ollow-Up for Depression : review of PHQ-9 found negative result, no follow-up needed. foot is still hurting. walking is good. climbing stairs hurts. C ommunication Needs: Communication Needs D oes the patient have a hearing impairment N o, D oes the patient have a vision impairment? Y es, I f yes, what is the vision impairment? G lasses, D oes the patient have a cognition impairment? N o. F all Risk: History H ave you had any falls with injury in the past year? N o, H ave you had two or more falls in the past year? N o. S REN Questions: SDOH Questions I n the past year have you been worried about losing housing? N o, I n the past year have you or any family members you live with been unable to get any of the following when it was really needed? Check all that apply: N one. S ymptom(s): patient is a 84yo male here for visit with review of recent labs and follow up of chronic issues. * ROS: G eneral/Constitutional: Change in appetite d enies. C hills d enies. F ever d enies. O phthalmologic: Blurred vision d enies. D ischarge d enies. P ain d enies. E NT: Decreased hearing d enies. S ore throat d enies.?Swollen glands d enies. E ndocrine: Cold intolerance d enies. E xcessive thirst d enies. H eat intolerance d enies. W eight loss d enies. R espiratory: Cough d enies. S hortness of breath at rest d enies. S hortness of breath with exertion d enies. W heezing d enies. C ardiovascular: Chest pain at rest d enies. C hest pain with exertion?denies. I rregular heartbeat d enies. S hortness of breath d enies. ? G astrointestinal: Abdominal pain d enies. C hange in bowel habits d enies. D iarrhea d enies. N ausea d enies. R ectal bleeding d enies. V omiting d enies . G enitourinary: Blood in urine d enies. D ifficulty urinating d enies. F requent urination d enies. M usculoskeletal: Painful joints d enies. W eakness d enies. ? S kin: Dry skin d enies. I tching d enies. D enies?Mole(s), changes in moles, new moles or any lesions of concern. D enies P hotosensitivity. R jun d enies. N eurologic: Dizziness d enies. F ainting d enies. H eadache?denies. * Medical History: * Surgical History: * Hospitalization/Major Diagno stic Procedure: * Family History: F ather: 88 yrs, family history unknown . M other: 88 yrs. 1 brother(s) , 1 sister(s) - healthy. 1 son(s) , 1 daughter(s) - healthy. . mother, cardiac arrest, Denies mental health/substance abuse family history, Denies mental health/substance abuse family history, No pertinent family medical history, No pertinent family medical history. * Social History: T obacco Use: T obacco Use/Smoking P atient is a f ormer smoker, H ow long has it been since you last smoked? > 10 years, A dditional Findings: Tobacco Non-User F ormer smoker, currently using no form of tobacco. D rugs/Alcohol: A lcohol Screen D id you have a drink containing alcohol in the past year? N o, P oints 0 , I nterpretation N egative. M iscellaneous: C affeine: yes, 2-3 cups per day (coffee). Children: yes. Community involvements: yes. Exercise: yes, biking [place] 3 times a week. Housing: owning. Living with: spouse. Marital status: . 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 Pets: dogs. * Medications: T akingFreeStyle Lite 0 Device [...] as needed Inhalation every 4 hrs Nystatin 266718 UNIT/GM Cream 1 application Externally Twice a [...] needed Inhalation every 4 hrs Taking Nystatin 013123 UNIT/GM Cream 1 application Externally Twice a [...] tablet as needed Orally every 8 hrs DiscontinuedpredniSONE 10 MG Tablet 1 tablet with food or milk Orally 4 tabs for 3 days,3tabs for 3 days, 2 tabs for 3 days, and 1 tab for 3 days Medication List reviewed and reconciled with the patientDiscontinued predniSONE 10 MG Tablet 1 tablet with food or milk Orally 4 tabs for 3 days,3tabs for 3 days, 2 tabs for 3 days, and 1 tab for 3 days Medication List reviewed and reconciled with the patient * Allergies: N .K.D.A.yes[Allergies Verified] Objective: * Vitals: H t: 71, Wt: 201, BMI:28.03, BP:102/50, HR:110, Wt-k.17. * P ast Orders: L ab:IRON PROFILE (Order Date - 11/10/2024) (Collection Date & Time - 11/10/2024 08:00 AM) Value Reference Range Iron 49 45-160 - mcg/dL Total Iron Binding Capacity 282 228-428 - mc g/dL Percent Iron Saturation 17 15-50 - % Unsaturated Iron Binding 233 - ug/dL L ab:Lipid Panel (Order Date - 11/10/2024) (Collection Date & Time - 11/10/2024 08:00 AM) Value Reference Range Triglycerides 81 <150 - mg/dL Cholesterol 120 <200 - mg/dL LDL Cholesterol Calculated 53 <100 - mg/dL HDL Cholesterol 51 >40 - mg/dL L ab:PSA,Total (Free>4and<10) (Order Date - 11/10/2024) (Collection Date & Time - 11/10/2024 08:00 AM) Value Reference Range PSA,Total (Free>4and<10) 2.37 0.00-4.00 - ng/ mL L ab:Hemoglobin A1c (Order Date - 11/10/2024) (Collection Date & Time - 11/10/2024 08:00 AM) Value Reference Range Hemoglobin A1c % 6.5 H <6.0 - % Estimated Average Glucose 140 - mg/dL L ab:Microalbumin, Random (Order Date - 11/10/2024) (Collection Date & Time - 11/10/2024 08:00 AM) Value Reference Range Creatinine Urine 44.71 - mg/dL Microalbumin Urine 9.0 - mg/L Microalbum Creatinine Ratio Ur 20.1 <30 - ug/ mg cr L ab:Complete Blood Count Auto Diff (Order Date - 11/10/2024) (Collection Date & Time - 11/10/2024 08:00 AM) Value Reference Range White Blood Count 14.2 H 4.8-10.8 - X10*3/uL Red Blood Count 4.07 L 4.60-5.80 - X10*6/uL Hemoglobin 11.4 L 14.0-18.0 - g/dl Hematocrit 35.8 L 42.0-52.0 - % Mean Corpuscular Volume 88.0 80.0-98.0 - fL Mean Corpuscular Hemoglobin 28.0 27.0-33.0 - pg Mean Corpuscular HGB Conc 31.8 31.0-36.0 - g/ dl Red Cell Distribution Width 14.4 11.0-16.0 - % Platelet Count 450 H 160-400 - X10*3/uL Mean Platelet Volume 10.2 9.4-12.4 - fL Neutrophils Percent Auto 75.6 H 45-73 - % Imm Gran Pct Auto 0.4 0.0-0.4 - % Lymphocytes Percent Auto 18.0 L 20-40 - % Monocytes Percent Auto 5.8 2-11 - % Eosinophils Percent Auto 0.1 0-4 - % Basophils Percent Auto 0.1 0-2 - % NRBC Pct Auto 0.0 0.0-0.2 - /100WBC Neutrophils Absolute Auto 10.7 H 2.0-8.3 - x10* 3/uL Imm Gran Abs Auto 0.06 H 0.00-0.03 - X10*3/uL Lymphocytes Absolute Auto 2.6 1.2-4.9 - X10* 3/uL Monocytes Absolute Auto 0.8 0.1-1.2 - X10*3/ uL Eosinophils Absolute Auto 0.0 0.0-0.4 - X10* 3/uL Basophils Absolute Auto 0.0 0.0-0.2 - X10*3/ uL NRBC Abs Auto 0.000 0.0-0.012 - X10*3/uL L ab:UA ClnCatch+Micro w/rflx Cult (Order Date - 11/10/2024) (Collection Date & Time - 11/10/2024 08:00 AM) Value Reference Range Color Urine Yellow - Appearance Urine Clear - PH 5.5 5.0-9.0 - Glucose Urine UA Negative Negative - mg/dL Urine Blood Negative Negative - Specific Henniker - Urine 1.010 1.005-1.025 - Urine Protein Negative Neg-Trace - mg/dL Urine Ketones Negative Negative - mg/dL Nitrite Urine Negative Negative - Leukocyte Esterase Urine Trace A Negative - RBC Urine 0-2 0-2 - /HPF WBC Urine 0-5 0-5 - /HPF Squamous Epithelial Cell Urine 0-2 0-2 - /HP F Bacteria Urine None Seen None Seen - Hyaline Casts Urine 0-2 0-2 - /LPF * Examination: G eneral Examination: GENERAL APPEARANCE: w ell developed, well nourished, in no acute distress. HEAD: n ormocephalic, atraumatic. EYES: p upils equal, round, reactive to light and accommodation, sclera non-icteric. EARS: n ormal. ORAL CAVITY: m ucosa moist. THROAT: c lear. NECK/THYROID: n kaitlin supple, full range of motion, no cervical lymphadenopathy, no bruits. SKIN: w arm and dry, no suspicious lesions. HEART: r egular rate and rhythm, S1, S2 normal, no murmurs.? LUNGS: c lear to auscultation bilaterally. ABDOMEN: s oft, nontender, nondistended, bowel sounds present, normal, no organomegaly , no masses palpable. RECTAL EXAM: n ormal tone, no external hemorrhoids, no masses palpable, prostate normal, stool guaiac negative. MALE GENITOURINARY: n ormal, no testicular mass, testes descended bilaterally. EXTREMITIES: n o clubbing, cyanosis, or edema. NEUROLOGIC: n onfocal, motor strength normal upper and lower extremities, sensory exam intact. Assessment: * Assessment: 1. F oot pain, right - M79.671 (Primary) 2 . P aroxysmal atrial fibrillation - I48.0 3 . E levated BUN - R79.9 4 . T ype 2 diabetes mellitus without complications - E11.9 5 . P ure hypercholesterolemia - E78.00 6 . E ssential hypertension - I10 7 . I tenisha deficiency anemia, unspecified iron deficiency anemia type - D50.9 8 . C OPD (chronic obstructive pulmonary disease) with acute bronchitis - J44.0 Plan: * Treatment: 2. P aroxysmal atrial fibrillation Start Metoprolol Succinate ER Tablet Extended Release 24 Hour, 25 MG, 1 tablet, Orally, Once a day, 30 days, 30, Refills 5; C ontinue Xarelto Tablet, 20 MG, 1 tablet with food, Orally, Once a day. L AB: Blood Urea Nitrogen (Ordered for 12/01/2024) (Collection Date & Time - 11/24/2024 07:30 AM) L AB: Creatinine (Ordered for 12/01/2024) (Collection Date & Time - 11/24/2024 07:30 AM) I maging: Electrocardiogram (EKG) Notes: getting ecg and back to dr padilla/salena ecg with regular rythm but is rapid afib. , patient verbalized understandngof medication and directions for use? Referral To:Darryl Padilla??Cardiovascular Disease ?Reason:I48.[address] Gabriel and Dr. Padilla spoke regarding patient's issue, was told Dr. Padilla office would be calling patient with an appt 3.?Elevated BUN? Notes: probably from the lasix. which has been stopped , pending labs??4.?Type 2 diabetes mellitus without complications? Continue metFORMIN HCl Tablet, 500 MG, TAKE 1 TABLET BY MOUTH TWICE A DAY WITH MEALS.?? Notes: stable, will cntonue current regiment??5.?Pure hypercholesterolemia? Continue Atorvastatin Calcium Tablet, 80 MG, 1 tablet, Orally, Once a day.?? Notes: stable, will continue current regiment??6.?Essential hypertension? Continue Lisinopril Tablet, 20 MG, TAKE 1 TABLET BY MOUTH EVERY DAY.?? Notes: doing well, will contnue current regiment and will continue to monitor?? 7.?Iron deficiency anemia, unspecified iron deficiency anemia type? Continue Ferrous Sulfate Tablet, 325 (65 Fe) MG, 1 tablet, Orally, BID.?? Notes: stable, will continue current regiment and will continue to monitor?? 8.?COPD (chronic obstructive pulmonary disease) with acute bronchitis? Continue Albuterol Sulfate HFA Aerosol Solution, 108 (90 Base) MCG/ACT, 1 puff as needed, Inhalation, every 4 hrs.?? Notes: stable, will continue current regiment?? * Procedure Codes: G 2211 Complex e/m visit add on * Preventive Medicine: Diabetes Care Plan: P atient Lifestyle Goals N eeds to maintain diet control.?Treatment Goals A 1C< 7. B arriers N o specific barriers, doing well. E xpected Outcome m aintaining stable blood sugar levels within a target range. COPD Care Plan: P atient Lifestyle Goals R elieve symptoms and improve quality of life. T reatment Goals t narciso medicine exactly as precribed and plan for RX refills. B arriers N o Specific barriers. S elf-Managment Plan E at a healthy diet. E xpected Outcome i mproving quality of life. * Follow Up: 3 Weeks * * Sign off status: Completed true * Provider: Emery Gabriel MD Date: 0 11/17/2024 Generated for Gautam oh/Isaac/Júniorsmitting on: 04/19/2024 08:36 AM EST History and Physical Notes * HPI (History of Present Illness) Category Sub-Category Detail Notes Category Not es Symptom(s) patient is a 84 yo male here for visit with review of recent labs and follow up of chronic issues Depression Screening PHQ-9 Little inte rest or pleasure in doing things: Not at all foot is still hurting. walking is good. climbing stairs hurts Feeling down, depressed, or hopeless: No t [...] patient have a vision impairmen t?: Yes If yes, what is the vision impairment?: Glasses Does the patient have a cognition impair ment?: No Examination Category Sub-Category Detail Notes Category Not es General Examination GENERAL APPEARANCE: well dev eloped, well nourished, in no acute distress HEAD: normocephalic, atrau matic EYES: pupils equal, round, reactive to light and accommodation, sclera non-icteric EARS: normal THROAT: clear NECK/THYROID: neck supple, full ra nge of motion, no cervical lymphadenopathy, no bruits HEART: regular rate and rhy thm, S1, S2 normal, no murmurs LUNGS: clear to auscultatio n bilaterally ABDOMEN: soft, nontender, non distended, bowel sounds present, normal, no organomegaly , no masses palpable NEUROLOGIC: nonfocal, motor stre ngth normal upper and lower extremities, sensory exam intact SKIN: warm and dry, no oanh picious lesions EXTREMITIES: no clubbing, cyanosi s, or edema MALE GENITOURINARY: normal, no testicula r mass, testes descended bilaterally RECTAL EXAM: normal tone, no exte rnal hemorrhoids, no masses palpable, prostate normal, stool guaiac negative ORAL CAVITY: mucosa moist Consultation Request Notes Referral Date Referring Provider Referred Provider Not kavya 11/17/2024 Jordan Gabriel, Darryl I48.[address] Gabriel and Dr. Padilla spoke regarding patient's issue, was told Dr. Padilla office would be calling patient with an appt
--- OUTSIDE RECORDS SUMMARY | 2024-11-24 02:30 | XMS_ITS ---
Author Organization Jordan Gabriel MD Address [address] [place] [address] [phone] Care Team Providers Care Telephone Sales Representative Name Role Phone Jordan Gabriel Primary Care Provider Results Component Value Reference Range Notes Blood Urea Nitrogen Reviewed date:11/24/2024 01:52:49 PM Interpretation: Performing Lab:[address] [phone] Notes/Report: Blood Urea Nitrogen 21 9-16 mg/dL Creatinine Reviewed date:11/24/2024 01:52:40 PM Interpretation: Performing Lab:[facility], [address] [place] [phone] Notes/Report: Creatinine 1.37 0.5-1.4 mg/dL Estimated Glomerular Filt Rate 50 Chronic Kidney Disease: Estimated GFR < 60 mL/min/1.73m2 Severe Kidney Disease: Estimated GFR < 15 mL/min/1.73m2 REASON FOR VISIT Bun and creatine Encounters Encounter Location Date Provider Diagnosis Jordan Gabriel MD [address] [place] [address] [phone] 11/24/2024 Jordan Gabriel Paroxysmal atrial fibrillation I48.0 Assessments Encounter Date Diagnosis (ICD Code) Assessment Notes Treatment Notes Treatment Clinical Notes Section Notes 11/24/2024 Paroxysmal atrial fibrillation (ICD-10 - I48.0) Plan Of Treatment Next Appt Details Provider Name:Jordan wrad, 03/09/2025 03:00:00 PM, [address] [place] [address], [phone], Provider Name:Jordan ward, 05/21/2025 01:45:00 PM, [address] [place] [address], [address], [phone], Provider Name:Jordan ward, 11/15/2025 07:15:00 AM, [address] [place] [address], [phone], Provider Name:Jordan ward, 11/22/2025 10:30:00 AM, [address] [place] [address], [phone], Progress Notes * Anthony GOODMAN CDOB:1939 (84 yo M)Acc No.[id number]:11/24/2024 Progress Note Patient: Anthony GARCIA Provider: Emery Gabriel MD :1940 A ge:84 Y S ex:Male Date:11/24/2024 Address:[address] [place] [address] [facility] Subjective: * Chief Complaints: * 1 . Bun and creatine. * Medical History: Objective: * Vitals: Assessment: * Assessment: 1. P aroxysmal atrial fibrillation - I48.0 (Primary) Plan: * Treatment: * Procedure Codes: 3 6415 VENIPUNCT, ROUTINE* * * The named appointment provid er may or may not be the originator of this progress note, and it is not deemed complete until electronically signed by the appointment provider. Sign off status: Pending * Provider: Emery Gabriel MD Date: 0 11/24/2024 Generated for Gautam oh/Isaac/Esequiel on: 04/19/2024 08:36 AM EST
--- OUTSIDE RECORDS SUMMARY | 2024-11-24 05:15 | XMS_ITS ---
Author Organization Jordan Gabriel MD Address [address] [place] [phone] Care Team Providers Care Industrial Relations Analyst Name Role Phone Jordan Gabriel Primary Care Provider [phone] REASON FOR VISIT HDF Immunizations Vaccine Route Administration Date Status Comme nts Influenza High Dose IM Intramuscular 11/24/2024 Administer ed Encounters Encounter Location Date Provider Diagnosis Jordan Gabriel MD [address] [place] [phone] 11/24/2024 Jordan Gabriel Encounter for administration of vaccine Z23 Assessments Encounter Date Diagnosis (ICD Code) Assessment Notes Treatment Notes Treatment Clinical Notes Section Notes 11/24/2024 Encounter for administration of vaccine (ICD-10 - Z23) Plan Of Treatment Next Appt Details Provider Name:Jordan Cyr ier, 03/09/2025 03:00:00 PM, [address], [address], [place], [phone], Provider Name:Jordan Cyr ier, 05/21/2025 01:45:00 PM, [address], [address], [place], [place], [phone], Provider Name:Jordan Cyr ier, 11/15/2025 07:15:00 AM, [address], [address], [place], [phone], Provider Name:Jordan Cyr ier, 11/22/2025 10:30:00 AM, [address] [place] [address], Suite [facility], [place], [place], [phone], Progress Notes * Anthony GOODMAN CDOB:1939 (84 yo M)Acc No.[id number]:11/24/2024 Progress Note Patient: Anthony GARCIA Provider: Emery Gabriel MD :1940 A ge:84 Y S ex:Male Date:11/24/2024 Address:[address] [place], [place] [id number] Subjective: * Chief Complaints: * 1 . [...] 11/24/2024 Generated for Gautam oh/Isaac/Esequiel on: 1 04/19/2024 08:35 AM EST
--- OUTSIDE RECORDS SUMMARY | 2024-12-08 04:15 | XMS_ITS ---
Author Organization Jordan Gabriel MD Address [address] [place] [phone] Care Team Providers Care Sql Bi Developer Name Role Phone Jordan Gabriel Primary Care Provider [phone] Allergies No Known Allergies REASON FOR VISIT [...] food Orally Once a day Active Nystatin 466217 UNIT/GM 1 application Externally Twice a day [...] W/U Status Risk Notes Problem Atrial fibrillation (73221648) Atrial fibrillation (I48.91) Active confirmed Vital Signs Blood pressure systolic 142 mm Hg 12/09/19 25 Blood pressure diastolic 60 mm Hg 025 Height 71 in 12/08/2024 Weight 203 lbs 12/08/2024 BMI 28.31 kg/m2 12/08/2024 weight is up 2 pounds since 11-17-24 Encounters Encounter Location Date Provider Diagnosis Jordan Gabriel MD [address] [place], [place] [phone] 12/08/2024 Jordan Gabriel Panlobular emphysema J43.1 ; [...] Reason: Provider Name:Jordan ward, 03/09/2025 03:00:00 PM, [address] [place] [address], [address], [phone], Provider Name:Jordan ward, 05/21/2025 01:45:00 PM, [address] [place] [address], [phone], Provider Name:Jordan ward, 11/15/2025 07:15:00 AM, [address] [place] [address], [address], [phone], Provider Name:Jordan ward, 11/22/2025 10:30:00 AM, [address] [place] [address], [phone], Progress Notes * Anthony GOODMAN CDOB:1939 (84 yo M)Acc No.[id number]:12/08/2024 Patient: Anthony GARCIA Provider: Emery Gabriel MD :1940 A ge:84 Y S ex:Male Date:12/08/2024 Address:[id number] Subjective: * Chief Complaints: * 3 weeks [...] 1 capsule Orally Once a day Nystatin 408576 UNIT/GM Cream 1 application Externally Twice a [...] capsule Orally Once a day Taking Nystatin 577113 UNIT/GM Cream 1 application Externally Twice a [...] 0 12/08/2024 Generated for Gautam oh/Isaac/eTransmitting on: 04/19/2024 08:36 AM EST History and [...]
--- OUTSIDE RECORDS SUMMARY | 2025-01-05 08:45 | XMS_ITS ---
Author Organization Jordan Gabriel MD Address [address] [place] [phone] Care Team Providers Care Poultry Picking Machine Tender Name Role Phone Jordan Gabriel Primary Care Provider Allergies No Known Allergies REASON FOR VISIT 3 week, Accompanied by Medications Medication SIG (Take, Route, Frequency, Duration) Notes Start Date End Date Status Atorvastatin Calcium 80 MG 1 tablet Orally Once a day Active Ferrous Sulfate 325 (65 Fe) MG 1 tablet Orally BID Active metFORMIN HCl 500 MG TAKE 1 TABLET BY [facility] TWICE A DAY WITH MEALS Active Omeprazole [...] for 30 days 11/14/2017 Not-Taki ng Nystatin 072664 UNIT/GM APPLY DAILY TO S KIN TO [...] Date Provider Diagnosis Jordan Gabriel MD [address] [facility] [address] [place], [place] [phone] 01/05/2025 Jordan Gabriel Paroxysmal atrial fibrillation I48.0 [...] Provider Name:Jordan ward, 03/09/2025 03:00:00 PM, [address] [place] [address], [address], [place], [phone], Provider Name:Jordan ward, 05/21/2025 01:45:00 PM, [address] [place] [address], [address], [place], [place], [phone], Provider Name:Jordan ward, 11/15/2025 07:15:00 AM, [address], [address], [place], [place], [phone], Provider Name:Jordan Cyr ier, 11/22/2025 10:30:00 AM, [address], [address], [place], [place], [phone], Progress Notes * KENYAnthony Mccall CDOB:1939 (84 yo M)Acc No.[id number]:01/05/2025 Progress Notes Patient: Anthony GARCIA Ina Provider: Emery Gabriel MD :1940 A ge:84 Y S ex:Male Date:01/05/2025 Address:[address] [facility] Subjective: * Chief Complaints: * 3 weekAccompanied [...] with food Orally Once a day Nystatin 290757 UNIT/GM Cream APPLY DAILY TO SKIN TO [...] food Orally Once a day Taking Nystatin 774880 UNIT/GM Cream APPLY DAILY TO SKIN TO [...] Emery Gabriel MD Date: Generated for Gautam oh/Isaac/Editting on: 04/19/2024 08:35 [...]
--- NOTE | ~2025-02-17 | NM_ITS ---
Lexiscan Myocardial perfusion study Indication: Coronary artery disease Technique: The patient was brought in for a Lexiscan perfusion study on 02/17/2025 and was injected 0.4 mg of Lexiscan intravenously. Within a minute of this injection 25 mCi of sestamibi was given intravenously. Images were obtained using the SPECT gamma camera interlaced with the gating device. Images were obtained in supine position. Resting perfusion study was performed on 02/23/2025. Patient was administered 25 mCi of sestamibi intravenously at rest. Images were then obtained in supine position. Total DLP 115 mGy-cm. Arms by the patient's side Images were processed with the software and compared side to side in short axis, horizontal long axis and vertical long axis views. Findings: Raw aquisition reviewed. The stress perfusion study showed no significant perfusion abnormality. Both uncorrected as well as CT attenuation corrected images were reviewed. The gated study shows normal LV systolic function with calculated LVEF of 56%. LV cavity is normal in size. The gated study shows normal wall thickening and contraction of segments. Resting study shows no significant perfusion abnormality. Gating at rest reveals normal wall motion with ejection fraction at > 70%. The findings are consistent with no clear reversible or fixed perfusion abnormality. NM/NM cardiolite stress test Impression: 1. Myocardial perfusion imaging study shows probably normal myocardial perfusion. 2. Gated LVEF is 56% during stress and > 70% during rest. Correlate with echocardiogram. 3. Transient ischemic dilatation not present. EKG component of the test reported separately. Electronically signed by: Todd Chacko MD 02/23/2025 03:55 PM [facility]
--- NOTE | 2025-02-17 08:20 | CA_ITS ---
Acquisition Time: 2025-02-17 08:52:35 Total Exercise Time: 00:02:00 Test Indications: AFIB Medications: SEE H&P Protocol: LEXISCAN Max HR: 82 BPM 59% of Pred: 138 BPM Max BP: 146/50 mmHG Max Work Load: 1.0 METS Pharmacological stress test with Lexiscan while pt marches in chair and moves his arm, with reports of nausea and SOB, with isolated PVCs, with normotensive response to injection. Nondiagnostic EKG for ischemia. In recovery, pt treated with IVP Aminophylline 75 mg to reverse Lexiscan after which pt feeling back to baseline. Nuclear images pending. Test reviewed with Dr. Villafuerte. Referred By: Darryl Padilla Electronically Signed By: Nicholas Crane
--- OUTSIDE RECORDS SUMMARY | 2025-02-17 08:35 | XMS_ITS | Patient Health Record ---
Author Organization [facility] Address [address] [place] [address] Care Team Providers Care Svp Operations Name Role Phone Jordan Gabriel MD Primary Care Provider Patito Carpenter Unavailable [phone] Allergies No Known Allergies Results Component Value Reference Range Flag Notes Glucose, Whole Blood Reviewed date:07/25/2024 10:07:32 PM Interpretation: Performing Lab:[facility], [address] [place] [id number] Notes/Report: Glucose, Whole Blood 101 60-115 mg/dL N [facility] #: [id number] Reason For Referral No Information Medications Medication [...] Problem Screening for malignant neoplasm of colon (695835217) Encounter for screening for malignant neoplasm of colon (Z12.11) Active confirmed Problem History of adenomatous polyp of colon (288271214) History of adenomatous polyp of colon (Z86.010) Active confirmed Problem Screening for malignant neoplasm of rectum (405411069) Encounter for screening for malignant neoplasm of rectum (Z12.12) Active confirmed Problem Dysphagia (38249241) Dysphagia (R13.10) Active confirmed Problem Iron deficiency anemia (81611907) Iron deficiency anemia (D50.9) Active confirmed Problem Gastric polyp (98646989) Gastric polyp (K31.7) Active confirmed Problem History of polyp of colon (situation) (940797574) Hx of colonic polyps (Z86.010) Active confirmed Problem Long-term current use of anticoagulant (344824974) Long-term (current) use of anticoagulants (Z79.01) Active confirmed Problem Iron deficiency anemia (92098603) Iron deficiency anemia, unspecified iron deficiency anemia type (D50.9) Active confirmed Problem Stricture of esophagus (70371445) History of esophageal stricture (Z87.19) Active confirmed Problem Esophageal reflux finding (746386910) Gastroesophageal reflux (K21.9) Active confirmed Problem Diverticulosis of sigmoid colon (021508626) Diverticulosis of sigmoid colon (K57.30) Active confirmed [...] N/A Encounters Encounter Location Date Provider Diagnosis [facility] [address] [place], [place] [phone] 07/23/2024 Patito Andrews Esophageal stricture K22.2 and Hiatal hernia K44.9 [facility] [address] [place] [phone] 07/01/2024 Patito Andrews Dysphagia R13.10 ; History of esophageal stricture Z87.19 and Gastroesophageal reflux K21.9 [facility] [address] [place] [phone] 06/01/2024 Patito Andrews [facility] [address] [place] [phone] 07/23/2024 Patito Andrews Assessments Encounter Date Diagnosis [...] [place] [address] [place] [address] [id number] PATITO BUSTILLO Self - patient is the insured [employer] CLAIM[employer] [address] [place] [address] [id number] PATITO BUSTILLO Self - patient is the insured Medical (General) History Medical History History ICD Code Larger tubular adenoma with dysplasia re moved in 11/2008 from [facility] Colonoscopy 07-06-2009--small tubular cristina nomas Hyperlipidemia EGD in 11/2008 with a small HH and gastri tis-neg. H. pylori COPD/pneumonia Denies OH,CVA,renal disease HTN Asymptomatic gallstones-this had been reviewed with him on his previous office visit in August,---he had subsequent gallstone pancreatitis and cholecystectomy as below Upper endoscopy in August with a finding of a fibrotic distal esophageal stricture that was dilated successfully with balloons Colonoscopy in August of 2012 with removal of small tubular adenomas Atrial flutter/Atrial fib--sees Dr. Hazel watters [facility] Colonoscopy 06/2016-small tubular adenoma s Gallstone pancreatitis [...]
--- OUTSIDE RECORDS SUMMARY | 2025-02-17 08:37 | XMS_ITS | Patient Health Record ---
Author Organization Jordan Gabriel MD Address [address] [place] [phone] Care Team Providers Care Rocket Assembly Operator Name Role Phone Jordan Gabriel Primary Care Provider Allergies No Known Allergies Results Component Value Reference Range Notes Liver Panel Reviewed date:05/12/2024 04:52:54 PM Interpretation: Performing Lab:[facility], [address] [place] [phone] Notes/Report: Bilirubin Total 0.5 0.0-1.0 mg/dL Bilirubin Direct 0.2 0.0-0.5 mg/dL Aspartate Amino Transferase 28 5-37 U/L Alanine Aminotransferase 18 0-40 U/L Total Protein 7.1 6.5-8.0 g/dL Albumin Level 4.0 3.5-5.0 g/dL Alkaline Phosphatase 72 39-117 U/L Glucose Fasting Reviewed date:05/12/2024 04:53:04 PM Interpretation: Performing Lab:[facility], [address] [place] [phone] Notes/Report: Glucose Fasting 95 60-99 mg/dL Lipid Panel with Reflex Reviewed date:05/12/2024 04:53:13 PM Interpretation: Performing Lab:[facility], [address] [place] [phone] Notes/Report: Triglycerides 71 <150 mg/dL Desirable Triglyceride: [...] A1c Reviewed date:05/12/2024 12:07:37 PM Interpretation: Performing Lab:[facility], [address] [place] [phone] Notes/Report: Hemoglobin A1c % 6.0 <6.0 % [...] average glucose, using the formula of the Y9N-Omdpvtj Average Glucose study (ADAG), Diabetes Care, Vol.31,#8, 2007 Potassium Reviewed date:10/09/2024 12:34:47 PM Interpretation: Performing Lab:[facility], [address] [place] [phone] Notes/Report: Potassium 5.0 3.3-5.1 mmol/L Complete Blood Count Auto Di ff Reviewed date:11/10/2024 04:43:39 PM Interpretation: Performing Lab:[facility], [address] [place] [phone] Notes/Report: White Blood Count 14.2 4.8-10.8 X10*3/uL [...] NRBC Abs Auto 0.000 0.0-0.012 X10*3/uL Comprehensive [place]. Panel Fa st Reviewed date:12/08/2024 12:40:38 PM Interpretation:12-08-2024 Performing Lab:[facility], [address] [place] [phone] Notes/Report: Sodium 136 135-145 mmol/L Potassium 4.7 [...] PROFILE Reviewed date:11/10/2024 12:58:08 PM Interpretation: Performing Lab:[facility], [address] [place] [phone] Notes/Report: Iron 49 45-160 mcg/dL Total Iron Binding Capacity 282 228-428 mcg/dL Percent Iron Saturation 17 15-50 % Unsaturated Iron Binding 233 Lipid Panel Reviewed date:11/10/2024 12:57:18 PM Interpretation: Performing Lab:[facility], [address] [place] [phone] Notes/Report: Triglycerides 81 <150 mg/dL Desirable Triglyceride: [...] (Free>4and<10) Reviewed date:11/10/2024 01:00:52 PM Interpretation: Performing Lab:[address] [phone] Notes/Report: PSA,Total (Free>4and<10) 2.37 0.00-4.00 ng/mL A [...] Reviewed date:11/10/2024 04:33:57 PM Interpretation: Performing Lab:[address] [address] Notes/Report: Creatinine Urine 44.71 Microalbumin Urine 9.0 Microalbum/Creatinine Ratio Ur 20.1 <30 ug/mg cr Albumin/Creatinine Ratio Reference Ranges: Normal: < 30 ug/mg creatinine Microalbuminuria: 30 - 300 ug/mg creatinine Clinical Albuminuria: > 300 ug/mg creatinine Hemoglobin A1c Reviewed date:11/10/2024 12:57:28 PM Interpretation: Performing Lab:[address] [address] Notes/Report: Hemoglobin A1c % 6.5 <6.0 % [...] average glucose, using the formula of the R7I-Ussmscr Average Glucose study (ADAG), Diabetes Care, Vol.31,#8, Oct. 2007 UA ClnCatch+Micro w/rflx Cul t Reviewed date:11/11/2024 12:30:51 PM Interpretation: Performing Lab:[address] [phone] Notes/Report: Urine, Clean Catch Color Urine Yellow Appearance Urine Clear PH 5.5 5.0-9.0 Glucose Urine UA Negative Negative mg/dL Urine Blood Negative Negative Specific [place] - Urine 1.010 1.005-1.025 Urine Protein Negative Neg-Trace mg/dL Urine Ketones Negative Negative mg/dL Nitrite Urine Negative Negative Leukocyte Esterase Urine Trace Negative RBC Urine 0-2 0-2 /HPF WBC Urine 0-5 0-5 /HPF Squamous Epithelial Cell Urine 0-2 0-2 /HPF Bacteria Urine None Seen None Seen Hyaline Casts Urine 0-2 0-2 /LPF Blood Urea Nitrogen Reviewed date:11/24/2024 01:52:49 PM Interpretation: Performing Lab:[facility], [address] [place] [phone] Notes/Report: Blood Urea Nitrogen 21 9-16 mg/dL Creatinine Reviewed date:11/24/2024 01:52:40 PM Interpretation: Performing Lab:[address] [address] Notes/Report: Creatinine 1.37 0.5-1.4 mg/dL Estimated Glomerular Filt Rate 50 Chronic Kidney Disease: Estimated GFR < 60 mL/min/1.73m2 Severe Kidney Disease: Estimated GFR < 15 mL/min/1.73m2 XR foot RT 2V Reviewed date:11/17/2024 04:42:26 PM Interpretation: Performing Lab: Notes/Report: [address] [address] XRay Report Signed Patient: Anthony Goodman MR#: [id number] : 1940 Acct:[id number] Age/Sex: 84 / M ADM Date: 11/17/24 Loc: HO.XRAY Attending Dr: Jordan Gabriel MD Ordering Physician: Jordan Gabriel MD Date of Service: 11/17/24 Procedure(s): XR foot RT 2V Accession Number(s): [id number] cc: Jordan Gabriel MD EXAMINATION: XR FOOT [...] 11/17/24 1137 DD/ 1115 TD/TT: 11/17/24 1123 Exhaust Tender: [place] [address] XRay Report Signed Patient: Angelia Goodman Sr MR#: [id number] : 1940 Acct:[id number] Age/Sex: 84 / M ADM Date: 11/17/24 Loc: HO.XRAY Attending Dr: Jordan Gabriel MD Ordering Physician: Jordan Gabriel MD Date of Service: 11/17/24 Procedure(s): XR fernanda t RT 2V Accession Number(s): [id number] cc: Jordan Gabriel MD EXAMINATION: XR FOOT [...] 11/17/24 1137 DD/ 1115 TD/TT: 11/17/24 1123 Exhaust Tender: Complete Blood Count Auto Di ff Reviewed date:04/07/2024 05:05:38 PM Interpretation: Performing Lab:[facility], [address] [place] [phone] Notes/Report: White Blood Count 7.3 4.8-10.8 X10*3/uL [...] Ferritin Reviewed date:04/07/2024 04:41:39 PM Interpretation: Performing Lab:[facility], [address] [place] [phone] Notes/Report: Ferritin 30 20-250 ng/mL Lactate Dehydrogenase Reviewed date:04/07/2024 05:05:11 PM Interpretation: Performing Lab:[facility], [address] [place] [phone] Notes/Report: Lactate Dehydrogenase 165 118-273 U/L Hold Gold Reviewed date:05/12/2024 12:08:08 PM Interpretation: Performing Lab:[facility], [address] [place] [phone] Notes/Report: Hold Gold See Note Specimen held untested for 24 hours; Call to request Chemistry testing. CT chest wo con Reviewed date:05/14/2024 08:55:12 AM Interpretation: Performing Lab: Notes/Report: [address] [place] [address] CT Scan Report Signed Patient: Anthony Goodman Sr MR#: [id number] : 1940 Acct:[id number] Age/Sex: 84 / M ADM Date: 05/13/24 Loc: HO.CT Attending Dr: Jannet Evans NP Ordering Physician: JANNET EVANS NP Date of Service: 05/13/24 Procedure(s): CT chest wo IV con Accession Number(s): [id number] cc: JANNET EVANS ERP PROGRAMMER; Jordan Gabriel MD Report Number: [id number]: Total DLP = 168.00 mGy-cm EXAMINATION: CT [...] by: Oseas Wallace MD 05/13/2024 11:42 AM [facility] Dictated By: Oseas Wallace MD Signed By: <Electronically signed by Oseas Wallace MD in OV> 05/13/24 1142 DD/ 1109 TD/TT: 05/13/24 1119 Exhaust Tender: [address] [address] [address] Scan Report Signed Patient: Angelia Goodman Sr MR#: [id number] : 1940 Acct:[id number] Age/Sex: 84 / M ADM Date: 05/13/24 Loc: HO.CT Attending Dr: Jannet Evans NP Ordering Physician: JANNET EVANS NP Date of Service: 05/13/24 Procedure(s): CT [facility] wo IV con Accession Number(s): [id number] cc: JANNET EVANS NP ; Jordan Gabriel [...] by: Oseas Wallace MD 05/13/2024 11:42 AM [facility] Dictated By: Oseas Wallace MD Signed By: <Electronically signed by Oseas Wallace MD in OV> 05/13/24 1142 DD/ 1109 TD/TT: 05/13/24 1119 Exhaust Tender: Complete Blood Count no Diff Reviewed date:07/07/2024 11:32:23 AM Interpretation: Performing Lab:[facility], [address] [place] [phone] Notes/Report: White Blood Count 6.7 4.8-10.8 X10*3/uL [...] Panel Reviewed date:07/07/2024 11:32:43 AM Interpretation: Performing Lab:[facility], [address] [place] [phone] Notes/Report: Sodium 138 135-145 mmol/L Potassium 4.6 [...] Ferritin Reviewed date:07/07/2024 11:31:21 AM Interpretation: Performing Lab:[facility], [address] [place] [phone] Notes/Report: Ferritin 45 20-250 ng/mL SARS-CoV2/FLU/RSV Reviewed date:07/13/2024 04:20:38 PM Interpretation: Performing Lab:[facility], [address] [place] [phone] Notes/Report: Influenza A PCR NEGATIVE Negative Influenza [...] by authorized laboratories. Testing performed on the Poll Everywhere GeneXpert utilizing real-time RT-PCR. All SARS CoV2 and positive influenza A/B results are reported to [facility]. XR chest 2V Reviewed date:07/13/2024 04:21:30 PM Interpretation: Performing Lab: Notes/Report: [facility] [place] [address] XRay Report Signed Patient: Anthony Goodman Sr MR#: [id number] : 1940 Acct:[id number] Age/Sex: 84 / M ADM Date: 07/11/24 [facility]: Awilda ARTIS Ordering Physician: Awilda Lozoya Date of Service: 07/11/24 Procedure(s): XR chest 2V Accession Number(s): [id number] cc: Jordan Gabriel MD; Awilda Lozoya CLINICAL [...] 07/11/24 1036 DD/ 1035 TD/TT: 07/11/24 1035 Exhaust Tender: [facility] [address] [place] [address] [place] [address] XRay Report Signed Patient: Angelia Goodman Sr MR#: [id number] : 1940 Acct:[id number] Age/Sex: 84 / M ADM Date: 07/11/24 Loc: HO.[facility]X Attending Dr: Geoffrey ARTIS Ordering Physician: Awilda Lozoya Date of Service: 07/11/24 Procedure(s): XR chest 2V Accession Number(s): [id number] cc: Jordan Gabriel MD; Awilda Lozoya CLINICAL [...] 07/11/24 1036 DD/ 1035 TD/TT: 07/11/24 1035 Exhaust Tender: Glucose, Whole Blood Reviewed date:07/23/2024 02:25:52 PM Interpretation: Performing Lab:[facility], [address] [place] [phone] Notes/Report: Glucose, Whole Blood 101 60-115 mg/dL METER # : [id number] Complete Blood Count Auto Di ff Reviewed date:10/06/2024 05:13:16 PM Interpretation: Performing Lab:[facility], [address] [place] [phone] Notes/Report: White Blood Count 7.4 4.8-10.8 X10*3/uL [...] Panel Reviewed date:10/06/2024 03:35:55 PM Interpretation: Performing Lab:[facility], [address] [place] [phone] Notes/Report: Sodium 142 135-145 mmol/L Potassium 5.4 [...] Ferritin Reviewed date:10/06/2024 12:19:56 PM Interpretation: Performing Lab:[facility], [address] [place] [phone] Notes/Report: Ferritin 28 20-250 ng/mL Haptoglobin Reviewed date:10/06/2024 12:19:09 PM Interpretation: Performing Lab:[facility], [address] [place] [phone] Notes/Report: Haptoglobin 200 40-268 mg/dL US venous duplex LE LT Reviewed date:11/02/2024 11:56:32 AM Interpretation: Performing Lab: Notes/Report: [address] [address] Ultrasound Report Signed Patient: Anthony Goodman Sr MR#: [id number] : 1940 Acct:[id number] Age/Sex: 84 / M ADM Date: 11/02/24 Loc: HO.US Attending Dr: Jordan Gabriel MD Ordering Physician: Jordan Gabriel MD Date of Service: 11/02/24 Procedure(s): US venous duplex LE LT Accession Number(s): [id number] cc: Jordan Gabriel MD EXAMINATION: US LOWER [...] 11/02/24 1128 DD/ 1106 TD/TT: 11/02/24 1114 Exhaust Tender: [address] [address] Ultrasound Report Signed Patient: Angelia Goodman Sr MR#: [id number] : 1940 Acct:[id number] Age/Sex: 84 / M ADM Date: 11/02/24 Loc: .US Attending Dr: Jordan Gabriel MD Ordering Physician: Jordan Gabriel MD Date of Service: 11/02/24 Procedure(s): US christopher ous duplex LE LT Accession Number(s): [id number] cc: Jordan Gabriel MD EXAMINATION: US LOWE [...] 11/02/24 1128 DD/ 1106 TD/TT: 11/02/24 1114 Exhaust Tender: Liver Panel Reviewed date:02/11/2025 07:50:12 AM Interpretation: Performing Lab:[address] [address] Notes/Report: Bilirubin Total 0.4 0.0-1.0 mg/dL Bilirubin Direct 0.2 0.0-0.5 mg/dL Aspartate Amino Transferase 24 5-37 U/L Alanine Aminotransferase 22 0-40 U/L Total Protein 7.2 6.5-8.0 g/dL Albumin Level 4.3 3.5-5.0 g/dL Alkaline Phosphatase 75 39-117 U/L TSH reflex Free T4 Reviewed date:02/11/2025 07:50:20 AM Interpretation: Performing Lab:[address] [place] [address] Notes/Report: TSH reflex Free T4 1.42 0.32-4.0 uIU/mL NT Pro B Type Natriuretic Pe pt Reviewed date:02/11/2025 12:41:49 PM Interpretation: Performing Lab:[address] [address] Notes/Report: NT Pro B Type Natriuretic Pept [...] of other clinical information. XR chest 2V Reviewed date:02/11/2025 12:42:28 PM Interpretation: Performing Lab: Notes/Report: [address] [address] XRay Report Signed Patient: Anthony Goodman Sr MR#: [id number] : 1940 Acct:[id number] Age/Sex: 84 / M ADM Date: 02/10/25 Loc: CINDA Attending Dr: Darryl Padilla MD Ordering Physician: Darryl Padilla MD Date of Service: 02/10/25 Procedure(s): XR chest 2V Accession Number(s): [id number] cc: Jordan Gabriel MD; Darryl Padilla MD [...] Luci Malone MD 02/10/2025 02:47 PM EST Dictated By: Luci Malone MD Signed By: <Electronically signed by Luci Malone MD in OV> 02/10/25 1447 DD/ 1431 TD/TT: 02/10/25 143 Exhaust Tender: [place] [address] XRay Report Signed Patient: Angelia Goodman Sr MR#: [id number] : 1940 Acct:[id number] Age/Sex: 84 / M ADM Date: 02/10/25 Loc: HO.XRAY Attending Dr: Darryl Padilla MD Ordering Physician: Darryl Padilla MD Date of Service: 02/10/25 Procedure(s): XR chest 2V Accession Number(s): [id number] cc: Jordan Gabriel MD; Darryl Padilla MD [...] 02/10/25 1447 DD/ 1431 TD/TT: 02/10/25 1435 Exhaust Tender: Reason For Referral Reason please eval and [...] with food Orally Once a day Active metFORMIN HCl 500 MG TAKE 1 TABLET BY [facility] TWICE A DAY WITH MEALS for 90 Active Nystatin 157895 UNIT/GM APPLY DAILY TO S KIN TO [...] Lisinopril 20 MG TAKE 1 TABLET BY [facility] EVERY DAY Active Ventolin HFA 108 (90 [...] Flu Vaccine Unknown 01/10/2012 Administered given at [facility] PPSV23 (Pnemovax) Unknown 01/10/2012 Administered given at [facility] Flu Vaccine Unknown 01/07/2014 Administered Flu Vaccine Unknown 12/31/2013 Administered received at [facility] Prevnar 13 IM Intramuscular 08/20/2014 Administered Flu Vaccine IM Intramuscular 12/22/2014 Administered pt re cieved high dose flu vaccine at [facility] in [place], Fluarix Quadrivalent Unknown 12/21/2015 Administered [facility] Unknown 01/26/2015 Administered [facility] Fluarix Quadrivalent IM Intramuscular 12/06/2016 Administe red PPSV23 (Pnemovax) IM Intramuscular 04/15/2017 Administered Influenza High Dose Unknown 12/17/2017 [facility]ered [facility] Fluarix Quadrivalent IM Intramuscular 12/19/2018 Adminvidya pearl pt was given the vaccine at [facility] in [place]. Influenza High Dose IM Intramuscular 12/04/2019 Administer [...] Problem Status W/U Status Risk Notes Problem 38049301 Type 2 diabetes mellitus without complications (E11.9) Active confirmed Problem Atrial fibrillation (17563825) Atrial fibrillation (I48.91) Active confirmed Problem Gout attack (241510723) Gout attack (M10.9) Active confirmed Problem 735253619 Paroxysmal atria l fibrillation (I48.0) Active confirmed Problem 8240650 Panlobular emphy sema (J43.1) Active confirmed Problem 94448690 Essential hypert ension (I10) Active confirmed Problem 823145177 Low HDL (under 4 0) (E78.6) Active confirmed Problem 628318654 Lung nodule (R91.1) Active confirmed Problem 068168302 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) Active confirmed Problem Chronic obstructive pulmonary disease with acute lower respiratory infection (691554445) COPD (chronic obstructive pulmonary disease) with acute bronchitis (J44.0) Active confirmed Problem 80157422 Iron deficiency anemia, unspecified iron deficiency anemia type (D50.9) Active confirmed Problem Claudication (41933832) Claudication (I73.9) Active confirmed Problem 119687030 Adenoma (D36.9) Active confirmed Problem 7511647212236095 Acute idiopathi c gout involving toe of left foot (M10.072) Active confirmed Problem 77499624 Lymphadenopathy, mediastinal (R59.0) Active confirmed Problem 663733700 Rising PSA level (R97.20) Active confirmed Problem 369738383 History of calcu leonard of gallbladder (Z87.19) Active confirmed Problem 993602686 Pure hypercholesterolemia (E78.00) Active confirmed Problem Gout (35498026) Acute gout of le ft foot, unspecified cause (M10.9) Active confirmed Problem 62190220 Hip arthritis (M16.10) Active confirme d Problem 294862351 Adenocarcinoma o f lung, 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) Active confirmed Problem 825085716 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 Problem 064194253 Esophageal dysfu nction (K22.4) Active confirmed Problem 872459635 Lower esophageal ring (Schatzki) (K22.2) Active confirmed [...] [facility] [address] [place], [place] [id number] 05/12/2024 Jordan Gabriel Type 2 diabetes mina itus without complications E11.9 and Pure hypercholesterolemia E78.00 Jordan Gabriel MD [address] [place], [place] [id number] 10/09/2024 Jordan Gabriel Hyperkalemia E87.5 Jordan Gabriel MD [address] [place] [id number] 11/10/2024 Jordan Gabriel Type 2 diabetes mina itus without complications E11.9 ; Pure hypercholesterolemia E78.00 ; Rising PSA level R97.20 ; Iron deficiency anemia, unspecified iron deficiency anemia type D50.9 and Essential hypertension I10 Jordan Gabriel MD [address] [place] [id number] 11/24/2024 Jordan Gabriel Paroxysmal atrial fibrillation I48.0 Jordan Gabriel MD [address] [place] [id number] 11/24/2024 Jordan Gabriel Encounter for administration of vaccine Z23 Jordan Gabriel MD [address] [place] [id number] 05/19/2024 Jordan Gabriel Encounter for genera l adult medical examination with abnormal findings Z00.01 ; Esophageal dysfunction K22.4 ; Pure hypercholesterolemia E78.00 and Type 2 diabetes mellitus without complications E11.9 Jordan Gabriel MD [address] [place] [id number] 07/24/2024 Jordan Gabriel Gout attack M10.9 Jordan Gabriel MD [address] [place] [id number] 11/02/2024 Jordan Gabriel Gout attack M10.9 an d Leg edema R60.0 Jordan Gabriel MD [address] [place] [id number] 11/09/2024 Jordan Gabriel Gout attack M10.9 an d Leg edema R60.0 Jordan Gabriel MD [address] [place] [id number] 11/17/2024 Jordan Gabriel Foot pain, right M79 .671 ; Paroxysmal atrial fibrillation I48.0 ; Elevated BUN R79.9 ; Type 2 diabetes mellitus without complications E11.9 ; Pure hypercholesterolemia E78.00 ; Essential hypertension I10 ; Iron deficiency anemia, unspecified iron deficiency anemia type D50.9 and COPD (chronic obstructive pulmonary disease) with acute bronchitis J44.0 Jordan Gabriel MD [address] [place] [id number] 12/08/2024 Jordan Gabriel Panlobular emphysema J43.1 ; Atrial fibrillation I48.91 and Edema R60.9 Jordan Gabriel MD [address] [place] [id number] 01/05/2025 Jordan Gabriel Paroxysmal atrial fibrillation I48.0 ; Essential hypertension I10 ; COPD (chronic obstructive pulmonary disease) with acute bronchitis J44.0 and Edema R60.9 Jordan Gabriel MD [address] [facility] [address] [place] [id number] 07/17/2024 Jordan Gabriel MD [address] [place] [address] Drive [address] [place] [id number] 09/08/2024 Jordan Gabriel Assessments Encounter Date Diagnosis [...] being done today 11-02-2024 at 11am at [facility] , pending diagnostic testing 11/09/2024 Gout attack [...] Details Provider Name:Jordan ward, 03/09/2025 03:00:00 PM, [address] [place] [address], [address], [phone], Provider Name:Jordan nettlesr, 05/21/2025 01:45:00 PM, [address] [place] [address], [address], [phone], Provider Name:Jordan Cyr ier, 11/15/2025 07:15:00 AM, [address] [place] [address], [phone], Provider Name:Jordan nettlesr, 11/22/2025 10:30:00 AM, [address] [place] [address], [phone], Insurance Providers Payer Name Payer Address Payer Phone Subscriber Number Group Number Insured Name Patient Relationship to Insured Coverage Start Date Coverage End Date [employer] [address] [place] [address] [id number] Anthony Goodman Self - patient is the insured [employer] [address] [place], [place] [phone] [id number] Anthony Goodman Self - patient is [...]
== END ==
LOC: HO.CARD 08:18
PROVIDERS: PCP Internal Medicine; Visit Provider Internal Medicine Cardiovascular Disease
DX: I25.10 Atherosclerotic heart disease of native coronary artery without angina pectoris (principal); I50.30 Unspecified diastolic (congestive) heart failure; I48.91 Unspecified atrial fibrillation
CPT/HCPCS: 78452; 93017; A9500; J0280; J2785

== ENCOUNTER → 2025-02-17 08:20 | Outpatient (BNV) | payer MEDICARE, SELFPAY | PROVIDERS: PCP Internal Medicine | DX: I49.3 Ventricular premature depolarization (principal); R06.02 Shortness of breath; R11.0 Nausea | CPT/HCPCS: 78452; 93016; 93018 ==

== ENCOUNTER 2025-03-02 12:18 | Day surgery (SDC) | payer MEDICARE, SELFPAY ==
--- OUTSIDE RECORDS SUMMARY | 2024-07-23 09:20 | XMS_ITS ---
Author Organization [facility] Address [address] [place] [address] Care Team Providers Care Quill Reamer Name Role Phone Jordan Gabriel MD Primary Care Provider Patito Carpenter Unavailable [phone] REASON FOR VISIT gerd,hx esophageal stricture,dysphagia Encounters Encounter Location Date Provider Diagnosis [facility] [place] Outpatient [address] [place] [address] [place] [phone] 07/23/2024 Patito Andrews Esophageal strictu re K22.2 and Hiatal hernia K44.9 Assessments Encounter Date Diagnosis (ICD Code) Assessment Notes Treatment Notes Treatment Clinical Notes Section Notes 07/23/2024 Esophageal stricture (ICD-10 - K22.2) 07/23/2024 Hiatal hernia (ICD-10 - K44.9) Plan Of Treatment No Information Progress Notes * PATITO BUSTILLO CDOB:1939 (85 yo M)Acc No.[id number]:07/23/2024 EGD/MAC Patient: Carlota BRICENO PATITO Buckley Provider: Jose Francisco Andrews MD :1940 A ge:84 Y S ex:Male Date:07/23/2024 Address: [id number] Pcp:Jordan Gabriel MD Subjective: * Chief Complaints: * G erd,hx esophageal stricture,dysphagia Assessment: * Assessment: 1. E sophageal stricture - K22.2 (Primary) 2 . H iatal hernia - K44.9 ? Plan: * Procedure Codes: 4 3249 ESOPH ENDOSCOPY, DILATION Billing Information: * Procedure Codes: 82337 ESOPH ENDOSCOPY, DILATION. * The named appointment provid er may or may not be the originator of this progress note, and it is not deemed complete until electronically signed by the appointment provider. Sign off status: Pending * Provider: Jose Francisco Andrews MD Date: 0 07/23/2024 Generated for Gautam oh/Isaac/Editting on: 04/27/2024 06:16 PM EST
--- OUTSIDE RECORDS SUMMARY | 2024-09-08 05:04 | XMS_ITS ---
Author Organization Jordan Gabriel MD Address [address] [place] [phone] Care Team Providers Care Tapper Shank Name Role Phone Jordan Gabriel Primary Care Provider [phone] Chest due Encounters Encounter Location Date Provider Diagnosis Jordan Gabriel MD [address] [place] [phone] 09/08/2024 Jordan Gabriel Plan Of Treatment Next Appt Details Provider Name:Jordan Cyr ier, 03/09/2025 03:00:00 PM, [address], [address], [place], [place], [phone], Provider Name:Jordan Cyr ier, 05/21/2025 01:45:00 PM, [address], [place], [phone], Provider Name:Jordan Cyr ier, 11/15/2025 07:15:00 AM, [address], [address], [place], [phone], Provider Name:Jordan Cyr ier, 11/22/2025 10:30:00 AM, [address], [address], [place], [place], [phone], Progress Notes * Anthony GOODMAN CDOB:1939 (84 yo M)Acc No.[id number]:09/08/2024 Patient: Anthony GARCIA :1940 A ge:84 Y S ex:Male Address: [place] [address] * true * Date: Generated for Gautam oh/Isaac/eTransmitting on: 04/27/2024 06:17 PM EST
--- OUTSIDE RECORDS SUMMARY | 2024-10-09 04:00 | XMS_ITS ---
Author Organization Jordan Gabriel MD Address [address] [place] [phone] Care Team Providers Care Application Tester Name Role Phone Nery Jordan Primary Care Provider [phone] Results Component Value Reference Range Notes Potassium Reviewed date:10/09/2024 12:34:47 PM Interpretation: Performing Lab:[facility], [address] [place] [phone] Notes/Report: Potassium 5.0 3.3-5.1 mmol/L REASON FOR VISIT Potassium Encounters Encounter Location Date Provider Diagnosis Jordan Gabriel MD [address] [place] [phone] 10/09/2024 Jordan Gabriel Hyperkalemia E87.5 Assessments Encounter Date Diagnosis (ICD Code) Assessment Notes Treatment Notes Treatment Clinical Notes Section Notes 10/09/2024 Hyperkalemia (ICD-10 - E87.5) Plan Of Treatment Next Appt Details Provider Name:Jordan Cyr yoonr, 03/09/2025 03:00:00 PM, [address] [place] [address], Suite [facility], [place], [place], [phone], Provider Name:Jordan Cyr ier, 05/21/2025 01:45:00 PM, 10 [facility], Suite [facility], [place], [place], [phone], Provider Name:Jordan nettlesr, 11/15/2025 07:15:00 AM, [address] [place] [address], Suite [facility], [place], [place], [phone], Provider Name:Jordan Cyr yoonr, 11/22/2025 10:30:00 AM, [address] [place] [address], Suite [facility], [place], [place], [phone], Progress Notes * KENYAnthony AYERS CDOB:1939 (85 yo M)Acc No.[id number]:10/09/2024 Progress Note Patient: Anthony GARCIA Provider: Emery Gabriel MD :1940 A ge:84 Y S ex:Male Date:10/09/2024 Address:[address] [place] [address] [facility] Subjective: * Chief Complaints: * 1 . [...] 10/09/2024 Generated for Gautam oh/Isaac/Esequiel on: 1 04/27/2024 06:17 PM EST
--- OUTSIDE RECORDS SUMMARY | 2024-11-02 04:45 | XMS_ITS ---
Author Organization Jordan Gabriel MD Address [address] [place] [address] [phone] Care Team Providers Care At Risk Specialist Name Role Phone Jordan Gabriel Primary Care Provider [phone] Allergies No Known Allergies REASON FOR VISIT [...] MG 1 tablet Orally BID Active Nystatin 274400 UNIT/GM 1 application Externally Twice a day [...] Date Provider Diagnosis Jordan Gabriel MD 10 [facility] [address] [place] [address] [phone] 11/02/2024 Jordan Gabriel Gout attack M10.9 and Leg edema R60.0 Assessments Encounter Date Diagnosis (ICD Code) Assessment Notes Treatment Notes Treatment Clinical Notes Section Notes 11/02/2024 Gout attack (ICD-10 - M10.9) patient verbalized nderstanding of medication and directions for use 11/02/2024 Leg edema (ICD-10 - R60.0) being done today 11-02-2024 at 11am at [facility] [place] Plan Of Treatment [...] being done today 10-23 at 11am at [facility] [place] diagnostic testing Pending Test Test Name Order Date US LEG LT VENOUS DOPPLER 11/02/2024 Next Appt Details Follow Up: 1 Week, Reason: Provider Name:Jordan ward, 03/09/2025 03:00:00 PM, [address] [place] [address], [address], [phone], Provider Name:Jordan ward, 05/21/2025 01:45:00 PM, [address] [place] [address], [address], [phone], Provider Name:Jordan ward, 11/15/2025 07:15:00 AM, [address] [place] [address], [address], [phone], Provider Name:Jordan ward, 11/22/2025 10:30:00 AM, [address] [place] [address], [phone], Progress Notes * Anthony GOODMAN CDOB:1939 (84 yo M)Acc No.[id number]:11/02/2024 Progress Notes Patient: Anthony GARCIA Provider: Emery Gabriel MD :1940 A ge:84 Y S ex:Male Date:11/02/2024 Address: [place], [place] Subjective: * Chief Complaints: * R FT [...] as needed Inhalation every 4 hrs Nystatin 596013 UNIT/GM Cream 1 application Externally Twice a [...] needed Inhalation every 4 hrs Taking Nystatin 246451 UNIT/GM Cream 1 application Externally Twice a [...] being done today 11-02-2024 at 11am at [facility] [place] diagnostic testing * Procedure Codes: * Follow Up: 1 Week * * Sign off status: Completed true * Provider: Emery Gabriel MD Date: 0 11/02/2024 Generated for Gautam oh/Isaac/Editting on: 04/27/2024 06:17 PM EST History and Physical Notes * [...]
--- OUTSIDE RECORDS SUMMARY | 2024-11-09 06:45 | XMS_ITS ---
Author Organization Jordan Gabriel MD Address [address] [place] [address] [phone] Care Team Providers Care Date Puller Name Role Phone Jordan Gabriel Primary Care [...] for 30 days 11/14/2017 Not-Guillermo ng Nystatin 069772 UNIT/GM 1 application Externally Twice a day for 14 days 04/28/2019 Active metFORMIN HCl 500 MG TAKE 1 TABLET BY [place] [facility] TWICE A DAY WITH MEALS for 90 Active Albuterol Sulfate HFA 108 (90 Base) MCG/ACT 1 puff as needed Inhalation every 4 hrs 04/13/2022 Active Lisinopril 20 MG TAKE 1 TABLET BY [facility] EVERY DAY for 90 Active predniSONE 10 [...] kg/m2 11/09/2024 weight is down 2 pounds [facility] e 11-02-24 Encounters Encounter Location Date Provider Diagnosis Jordan Gabriel MD [address] [place] [address] [phone] 11/09/2024 Jordan Gabriel Gout attack M10.9 and [...] Provider Name:Jordan Cyr ier, 03/09/2025 03:00:00 PM, [address] [place] [address], [address], [phone], Provider Name:Jordan Cyr ier, 05/21/2025 01:45:00 PM, [address] [place] [address], [address], [phone], Provider Name:Jordan Cyr ier, 11/15/2025 07:15:00 AM, [address] [place] [address], [address], [phone], Provider Name:Jordan nettlesr, 11/22/2025 10:30:00 AM, [address] [place] [address], [address], [phone], Progress Notes * Anthony GOODMAN CDOB:1939 (84 yo M)Acc No.[id number]:11/09/2024 Patient: Anthony GARCIA Provider: Emery Gabriel MD :1940 A ge:84 Y S ex:Male Date:11/09/2024 [facility] Subjective: * Chief Complaints: * 1 week [...] as needed Inhalation every 4 hrs Nystatin 001445 UNIT/GM Cream 1 application Externally Twice a [...] needed Inhalation every 4 hrs Taking Nystatin 721598 UNIT/GM Cream 1 application Externally Twice a [...] 11/09/2024 Generated for Gautam oh/Isaac/Editting on: 1 04/27/2024 06:18 PM EST History and Physical Notes * [...]
--- OUTSIDE RECORDS SUMMARY | 2024-11-10 03:00 | XMS_ITS ---
Author Organization Jordan Gabriel MD Address [address] [place] [address] [phone] Care Team Providers Care Washhouse Hand Name Role Phone Jordan Gabriel Primary Care Provider Results Component Value Reference Range Notes Complete Blood Count Auto Di ff Reviewed date:11/10/2024 04:43:39 PM Interpretation: Performing Lab:[facility], [address] [place] [phone] Notes/Report: White Blood Count 14.2 4.8-10.8 X10*3/uL Red Blood Count 4.07 4.60-5.80 X10*6/uL Hemoglobin 11.4 14.0-18.0 g/dl Hematocrit 35.8 42.0-52.0 % Mean Corpuscular Volume 88.0 80.0-98.0 fL Mean Corpuscular Hemoglobin 28.0 27.0-33.0 pg Mean Corpuscular HGB Conc 31.8 31.0-36.0 g/dl Red Cell Distribution Width 14.4 11.0-16.0 % Platelet Count 450 160-400 X10*3/uL Mean Platelet Volume 10.2 9.4-12.4 fL Neutrophils Percent Auto 75.6 45-73 % Imm Gran Pct Auto 0.4 0.0-0.4 % Lymphocytes Percent Auto 18.0 20-40 % Monocytes Percent Auto 5.8 2-11 % Eosinophils Percent Auto 0.1 0-4 % Basophils Percent Auto 0.1 0-2 % NRBC Pct Auto 0.0 0.0-0.2 /100WBC Neutrophils Absolute Auto 10.7 2.0-8.3 x10*3/u L Imm Gran Abs Auto 0.06 0.00-0.03 X10*3/uL Lymphocytes Absolute Auto 2.6 1.2-4.9 X10*3/u L Monocytes Absolute Auto 0.8 0.1-1.2 X10*3/uL Eosinophils Absolute Auto 0.0 0.0-0.4 X10*3/u L Basophils Absolute Auto 0.0 0.0-0.2 X10*3/uL NRBC Abs Auto 0.000 0.0-0.012 X10*3/uL Comprehensive [place]. Panel Fa st Reviewed date:12/08/2024 12:40:38 PM Interpretation:12-08-2024 Performing Lab:[facility], [address] [place] [phone] Notes/Report: Sodium 136 135-145 mmol/L Potassium 4.7 3.3-5.1 mmol/L Chloride 101 96-108 mmol/L Carbon Dioxide 24 22-29 mmol/L Anion Gap 16 12-20 Blood Urea Nitrogen 51 9-16 mg/dL Creatinine 1.86 0.5-1.4 mg/dL Estimated Glomerular Filt Rate 35 Chronic Kidney Disease: Estimated GFR < 60 mL/min/1.73m2 Severe Kidney Disease: Estimated GFR < 15 mL/min/1.73m2 Glucose Fasting 114 60-99 mg/dL A fasting glucose from 100-125 mg/dl is considered impaired (pre-diabetes). Calcium 9.7 8.4-10.2 mg/dL Bilirubin Total 0.6 0.0-1.0 mg/dL Aspartate Amino Transferase 22 5-37 U/L Alanine Aminotransferase 15 0-40 U/L Total Protein 7.3 6.5-8.0 g/dL Albumin Level 4.6 3.5-5.0 g/dL Alkaline Phosphatase 76 39-117 U/L IRON PROFILE Reviewed date:11/10/2024 12:58:08 PM Interpretation: Performing Lab:[facility], [address] [place] [phone] Notes/Report: Iron 49 45-160 mcg/dL Total Iron Binding Capacity 282 228-428 mcg/d L Percent Iron Saturation 17 15-50 % Unsaturated Iron Binding 233 Lipid Panel Reviewed date:11/10/2024 12:57:18 PM Interpretation: Performing Lab:[facility], [address] [place] [phone] Notes/Report: Triglycerides 81 <150 mg/dL Desirable Triglyceride: less than 150 mg/dL Borderline High Triglyceride 150-199 mg/dL High Triglyceride: 200-499 mg/dL Very High Triglyceride: greater than or equal to 5OO mg/dL Cholesterol 120 <200 mg/dL Desirable Cholesterol: less than 200 mg/dL Borderline High Cholesterol: 200-239 mg/dL High Cholesterol: greater than 239 mg/dL LDL Cholesterol Calculated 53 <100 mg/dL Desirable LDL: less than 100 mg/dL Near Optimal/Above Optimal LDL: 110-129 mg/dL Borderline High LDL: 130-159 mg/dL High LDL: 160-189 mg/dL Very High LDL: greater than or equal to 190 mg/dL HDL Cholesterol 51 >40 mg/dL Desirable HDL: greater than 40 mg/dL Note: This HDL assay may give artificially low results in patients with liver disease. PSA,Total (Free>4and<10) Reviewed date:11/10/2024 01:00:52 PM Interpretation: Performing Lab:[facility], [address] [place] [phone] Notes/Report: PSA,Total (Free>4and<10) 2.37 0.00-4.00 ng/mL A Free PSA was not [...] Chemiluminescent Microparticle Immunoassay (CMIA) Microalbumin, Random Reviewed date:11/10/2024 04:33:57 PM Interpretation: Performing Lab:[address] [phone] Notes/Report: Creatinine Urine 44.71 Microalbumin Urine 9.0 Microalbum/Creatinine Ratio Ur 20.1 <30 ug/mg cr Albumin/Creatinine Ratio Reference Ranges: Normal: < 30 ug/mg creatinine Microalbuminuria: 30 - 300 ug/mg creatinine Clinical Albuminuria: > 300 ug/mg creatinine Hemoglobin A1c Reviewed date:11/10/2024 12:57:28 PM Interpretation: Performing Lab:[address] [phone] Notes/Report: Hemoglobin A1c % 6.5 <6.0 % Hemoglobin A1C Reference Range Adults: 4.8 - 6.0 % Non diabetic: < 6.0 % Goal: < 7.0 % Additional Action Suggested: > 8.0 % Note: Hemoglobin A1c results are invalid for patients with abnormal amounts of HbF. Blood transfusions may impact the HbA1c concentration in the patient sample. Estimated Average Glucose 140 eAG = Estimated average glucose which is %A1C expressed as average glucose, using the formula of the M9P-Kejcuxu Average Glucose study (ADAG), Diabetes Care, Vol.31,#8, Oct. 2007 UA ClnCatch+Micro w/rflx Cul t Reviewed date:11/11/2024 12:30:51 PM Interpretation: Performing Lab:[facility], [address] [place] [phone] Notes/Report: Urine, Clean Catch Color Urine Yellow Appearance Urine Clear PH 5.5 5.0-9.0 Glucose Urine UA Negative Negative mg/dL Urine Blood Negative Negative Specific [employer] - Urine 1.010 1.005-1.025 Urine Protein Negative Neg-Trace mg/dL Urine Ketones Negative Negative mg/dL Nitrite Urine Negative Negative Leukocyte Esterase Urine Trace Negative RBC Urine 0-2 0-2 /HPF WBC Urine 0-5 0-5 /HPF Squamous Epithelial Cell Urine 0-2 0-2 /HPF Bacteria Urine None Seen None Seen Hyaline Casts Urine 0-2 0-2 /LPF REASON FOR VISIT FASTING LABS Encounters Encounter Location Date Provider Diagnosis Jordan Gabriel MD [address] [place] [phone] 11/10/2024 Jordan Gabriel Type 2 diabetes mina itus without complications E11.9 ; Pure hypercholesterolemia E78.00 ; Rising PSA level R97.20 ; Iron deficiency anemia, unspecified iron deficiency anemia type D50.9 and Essential hypertension I10 Assessments Encounter Date Diagnosis (ICD Code) Assessment Notes Treatment Notes Treatment Clinical Notes Section Notes 11/10/2024 Type 2 diabetes mina itus without complications (ICD-10 - E11.9) 11/10/2024 Pure hypercholesterolemia (ICD-10 - E78.00) 11/10/2024 Rising PSA level (IC D-10 - R97.20) 11/10/2024 Iron deficiency anem ia, unspecified iron deficiency anemia type (ICD-10 - D50.9) 11/10/2024 Essential hypertensi on (ICD-10 - I10) Plan Of Treatment Next Appt Details Provider Name:Jordan ward, 03/09/2025 03:00:00 PM, [address] [place] [address], [address], [phone], Provider Name:Jordan ward, 05/21/2025 01:45:00 PM, [address] [place] [address], [address], [phone], Provider Name:Jordan ward, 11/15/2025 07:15:00 AM, [address] [place] [address], [phone], Provider Name:Jordan ward, 11/22/2025 10:30:00 AM, [address] [place] [address], [phone], Progress Notes * Anthony GOODMAN CDOB:1939 (85 yo M)Acc No.[id number]:11/10/2024 Progress Note Patient: Anthony GARCIA Provider: Emery Gabriel MD :1940 A ge:84 Y S ex:Male Date:11/10/2024 [facility] Subjective: * Chief Complaints: * 1 . FASTING LABS. * Medical History: Objective: * Vitals: Assessment: * Assessment: 1. T ype 2 diabetes mellitus without complications - E11.9 (Primary) 2 . P ure hypercholesterolemia - E78.00 3 . R ising PSA level - R97.20 ?4. I tenisha deficiency anemia, unspecified iron deficiency anemia type - D50.9 5 . E ssential hypertension - I10 Plan: * Treatment: 2. P ure hypercholesterolemia L AB: Complete Blood Count Auto Diff (Collection Date & Time - 11/10/2024 08:00 AM) L AB: Comprehensive [place]. Panel Fast (Collection Date & Time - 11/10/2024 08:00 AM) L AB: IRON PROFILE (Collection Date & Time - 11/10/2024 08:00 AM) L AB: Lipid Panel (Collection Date & Time - 11/10/2024 08:00 AM) L AB: PSA,Total (Free>4and<10) (Collection Date & Time - 11/10/2024 08:00 AM) L AB: Microalbumin, Random (Collection Date & Time - 11/10/2024 08:00 AM) L AB: Hemoglobin A1c (Collection Date & Time - 11/10/2024 08:00 AM) L AB: UA ClnCatch+Micro w/rflx Cult (Collection Date & Time - 11/10/2024 08:00 AM) 3. R ising PSA level L AB: Complete Blood Count Auto Diff (Collection Date & Time - 11/10/2024 08:00 AM) L AB: Comprehensive [place]. Panel Fast (Collection Date & Time - 11/10/2024 08:00 AM) L AB: IRON PROFILE (Collection Date & Time - 11/10/2024 08:00 AM) L AB: Lipid Panel (Collection Date & Time - 11/10/2024 08:00 AM) L AB: PSA,Total (Free>4and<10) (Collection Date & Time - 11/10/2024 08:00 AM) L AB: Microalbumin, Random (Collection Date & Time - 11/10/2024 08:00 AM) L AB: Hemoglobin A1c (Collection Date & Time - 11/10/2024 08:00 AM) L AB: UA ClnCatch+Micro w/rflx Cult (Collection Date & Time - 11/10/2024 08:00 AM) 4. I tenisha deficiency anemia, unspecified iron deficiency anemia type L AB: Complete Blood Count Auto Diff (Collection Date & Time - 11/10/2024 08:00 AM) L AB: Comprehensive [place]. Panel Fast (Collection Date & Time - 11/10/2024 08:00 AM) L AB: IRON PROFILE (Collection Date & Time - 11/10/2024 08:00 AM) L AB: Lipid Panel (Collection Date & Time - 11/10/2024 08:00 AM) L AB: PSA,Total (Free>4and<10) (Collection Date & Time - 11/10/2024 08:00 AM) L AB: Microalbumin, Random (Collection Date & Time - 11/10/2024 08:00 AM) L AB: Hemoglobin A1c (Collection Date & Time - 11/10/2024 08:00 AM) L AB: UA ClnCatch+Micro w/rflx Cult (Collection Date & Time - 11/10/2024 08:00 AM) 5. E ssential hypertension L AB: Complete Blood Count Auto Diff (Collection Date & Time - 11/10/2024 08:00 AM) L AB: Comprehensive [place]. Panel Fast (Collection Date & Time - 11/10/2024 08:00 AM) L AB: IRON PROFILE (Collection Date & Time - 11/10/2024 08:00 AM) L AB: Lipid Panel (Collection Date & Time - 11/10/2024 08:00 AM) L AB: PSA,Total (Free>4and<10) (Collection Date & Time - 11/10/2024 08:00 AM) L AB: Microalbumin, Random (Collection Date & Time - 11/10/2024 08:00 AM) L AB: Hemoglobin A1c (Collection Date & Time - 11/10/2024 08:00 AM) L AB: UA ClnCatch+Micro w/rflx Cult (Collection Date & Time - 11/10/2024 08:00 AM) * Procedure Codes: 3 6415 VENIPUNCT, ROUTINE* * * The named appointment provid er may or may not be the originator of this progress note, and it is not deemed complete until electronically signed by the appointment provider. Sign off status: Pending * Provider: Emrey Gabriel MD Date: 0 11/10/2024 Generated for Gautam oh/Isaac/Esequiel on: 1 04/27/2024 06:19 PM EST
--- OUTSIDE RECORDS SUMMARY | 2024-11-17 05:30 | XMS_ITS ---
Author Organization Jordan Gabriel MD Address [address] [place] [phone] Care Team Providers Care Box Icer Name Role Phone Jordan Gabriel Primary Care Provider [phone] Allergies No Known Allergies Results Component Value Reference Range Notes XR foot RT 2V Reviewed date:11/17/2024 04:42:26 PM Interpretation: Performing Lab: Notes/Report: [address] [address] XRay Report Signed Patient: Anthony Goodman MR#: [id number] : 1940 Acct:[id number] Age/Sex: 84 / M ADM Date: 11/17/24 Loc: HO.XRAY Attending Dr: Jordan Gabriel MD Ordering Physician: Jordan Gabriel MD Date of Service: 11/17/24 Procedure(s): XR foot RT 2V Accession Number(s): [id number] cc: Jordan Gabriel MD EXAMINATION: XR FOOT [...] 11/17/24 1137 DD/ 1115 TD/TT: 11/17/24 1123 Re Etcher: [place] [address] XRay Report Signed Patient: Angelia Goodman Sr MR#: [id number] : 1940 Acct:[id number] Age/Sex: 84 / M ADM Date: 11/17/24 Loc: HO.XRBRADEN Attending Dr: Jordan Gabriel MD Ordering Physician: Jordan Gabriel MD Date of Service: 11/17/24 Procedure(s): XR foot RT 2V Accession Number(s): [id number] cc: Jordan Gabriel MD EXAMINATION: XR FOOT [...] 11/17/24 1137 DD/ 1115 TD/TT: 11/17/24 1123 Re Etcher: Reason For Referral Reason I48.0 Paroxysmal atr [...] Notes Start Date End Date Status Nystatin 086535 UNIT/GM 1 application Externally Twice a day [...] 500 MG TAKE 1 TABLET BY MO [facility] TWICE A DAY WITH MEALS [...] Location Date Provider Diagnosis Jordan Gabriel MD [address] [place] [address] [place] [phone] 11/17/2024 Jordan Gabriel Foot pain, right M79 [...] Reason: Provider Name:Jordan nettlesr, 03/09/2025 03:00:00 PM, [address] [place] [address], [address], [phone], Provider Name:Jordan ward, 05/21/2025 01:45:00 PM, [address] [place] [address], [address], [phone], Provider Name:Jordan ward, 11/15/2025 07:15:00 AM, [address] [place] [address], [address], [phone], Provider Name:Jordan nettlesr, 11/22/2025 10:30:00 AM, [address] [place] [address], [address], [phone], Progress Notes * Anthony GOODMAN CDOB:1939 (84 yo M)Acc No.[id number]:11/17/2024 Patient: Anthony GARCIA Ina Provider: Emery Gabriel MD :1940 A ge:84 Y S ex:Male Date:11/17/2024 Address: [place] Subjective: * Chief Complaints: * C OMP [...] spouse. Marital status: . 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 * Medications: T akingFreeStyle [...] as needed Inhalation every 4 hrs Nystatin 143015 UNIT/GM Cream 1 application Externally Twice a [...] needed Inhalation every 4 hrs Taking Nystatin 401889 UNIT/GM Cream 1 application Externally Twice a [...] mg/dL Urine Blood Negative Negative - Specific [place] - Urine 1.010 1.005-1.025 - Urine Protein [...] 11/17/2024 Generated for Gautam oh/Isaac/Júniorsmitting on: 1 04/27/2024 06:17 PM EST History and Physical [...]
--- OUTSIDE RECORDS SUMMARY | 2024-11-24 02:30 | XMS_ITS ---
Author Organization Jordan Gabriel MD Address [address] [place] [address] [phone] Care Team Providers Care Hydraulics Engineer Name Role Phone Jordan Gabriel Primary Care Provider [phone] Results Component Value Reference Range Notes Blood Urea Nitrogen Reviewed date:11/24/2024 01:52:49 PM Interpretation: Performing Lab:[address] [phone] Notes/Report: Blood Urea Nitrogen 21 9-16 mg/dL Creatinine Reviewed date:11/24/2024 01:52:40 PM Interpretation: Performing Lab:[facility], [address] [place] [phone] Notes/Report: Creatinine 1.37 0.5-1.4 mg/dL Estimated Glomerular Filt Rate 50 Chronic Kidney Disease: Estimated GFR < 60 mL/min/1.73m2 Severe Kidney Disease: Estimated GFR < 15 mL/min/1.73m2 REASON FOR VISIT Bun and creatine Encounters Encounter Location Date Provider Diagnosis Jordan Gabriel MD [address] [place] [address] [phone] 11/24/2024 Jordan Gabriel Paroxysmal atrial fibrillation I48.0 Assessments Encounter Date Diagnosis (ICD Code) Assessment Notes Treatment Notes Treatment Clinical Notes Section Notes 11/24/2024 Paroxysmal atrial fibrillation (ICD-10 - I48.0) Plan Of Treatment Next Appt Details Provider Name:Jordan ward, 03/09/2025 03:00:00 PM, [address] [place] [address], [phone], Provider Name:Jordan ward, 05/21/2025 01:45:00 PM, [address] [place] [address], [address], [phone], Provider Name:Jordan ward, 11/15/2025 07:15:00 AM, [address] [place] [address], [phone], Provider Name:Jordan ward, 11/22/2025 10:30:00 AM, [address] [place] [address], [phone], Progress Notes * Anthony GOODMAN CDOB:1939 (85 yo M)Acc No.[id number]:11/24/2024 Progress Note Patient: Anthony GARCIA Ina Provider: Emery Gabriel MD :1940 A ge:84 Y S ex:Male Date:11/24/2024 Address:[address] [place] [address] [id number] Subjective: * Chief Complaints: * 1 . [...] 0 11/24/2024 Generated for Gautam oh/Isaac/Esequiel on: 04/27/2024 06:17 PM EST
--- OUTSIDE RECORDS SUMMARY | 2024-11-24 05:15 | XMS_ITS ---
Author Organization Jordan Gabriel MD Address [address] [place] [phone] Care Team Providers Care Data Processing Auditor Name Role Phone Jordan Gabriel Primary Care Provider [phone] REASON FOR VISIT HDF Immunizations Vaccine Route Administration Date Status Comme nts Influenza High Dose IM Intramuscular 11/24/2024 Administer ed Encounters Encounter Location Date Provider Diagnosis Jordan Gabriel MD [address] [place] [phone] 11/24/2024 Jordan Gabriel Encounter for administration of vaccine Z23 Assessments Encounter Date Diagnosis (ICD Code) Assessment Notes Treatment Notes Treatment Clinical Notes Section Notes 11/24/2024 Encounter for administration of vaccine (ICD-10 - Z23) Plan Of Treatment Next Appt Details Provider Name:Jordan Cyr ier, 03/09/2025 03:00:00 PM, [address], [address], [place], [phone], Provider Name:Jodran Cyr ier, 05/21/2025 01:45:00 PM, [address], [address], [place], [place], [phone], Provider Name:Jordan Cyr ier, 11/15/2025 07:15:00 AM, [address], [address], [place], [phone], Provider Name:Jordan Cyr ier, 11/22/2025 10:30:00 AM, [address] [place] [address], Suite [facility], [place], [place], [phone], Progress Notes * Anthony GOODMAN CDOB:1939 (85 yo M)Acc No.[id number]:11/24/2024 Progress Note Patient: Anthony GARCIA Provider: Emery Gabriel MD :1940 A ge:84 Y S ex:Male Date:11/24/2024 Address:[address] [place], [place] [address]jose [facility] Subjective: * Chief Complaints: * 1 . [...] 11/24/2024 Generated for Gautam oh/Isaac/Esequiel on: 1 04/27/2024 06:19 PM EST
--- OUTSIDE RECORDS SUMMARY | 2024-12-08 04:15 | XMS_ITS ---
Author Organization Jordan Gabriel MD Address [address] [place] [phone] Care Team Providers Care Community Health Program Representative Name Role Phone Jordan Gabriel Primary [...] food Orally Once a day Active Nystatin 089011 UNIT/GM 1 application Externally Twice a day [...] W/U Status Risk Notes Problem Atrial fibrillation (94018549) Atrial fibrillation (I48.91) Active confirmed Vital Signs Blood pressure systolic 142 mm Hg 12/09/19 25 Blood pressure diastolic 60 mm Hg 025 Height 71 in 12/08/2024 Weight 203 lbs 12/08/2024 BMI 28.31 kg/m2 12/08/2024 weight is up 2 pounds since 11-17-24 Encounters Encounter Location Date Provider Diagnosis Jordan Gabriel MD [address] [place], [place] [phone] 12/08/2024 Jordan Gabriel Panlobular emphysema J43.1 ; [...] Reason: Provider Name:Jordan ward, 03/09/2025 03:00:00 PM, [address] [place] [address], [address], [phone], Provider Name:Jordan ward, 05/21/2025 01:45:00 PM, [address] [place] [address], [phone], Provider Name:Jordan ward, 11/15/2025 07:15:00 AM, [address] [place] [address], [address], [phone], Provider Name:Jordan ward, 11/22/2025 10:30:00 AM, [address] [place] [address], [phone], Progress Notes * Anthony GOODMAN CDOB:1939 (84 yo M)Acc No.[id number]:12/08/2024 Patient: Anthony GARCIA Provider: Emery Gabriel MD :1940 A ge:84 Y S ex:Male Date:12/08/2024 Address:[address] [id number] Subjective: * Chief Complaints: * 3 weeks [...] 1 capsule Orally Once a day Nystatin 113665 UNIT/GM Cream 1 application Externally Twice a [...] capsule Orally Once a day Taking Nystatin 296845 UNIT/GM Cream 1 application Externally Twice a [...] 0 12/08/2024 Generated for Gautam oh/Isaac/eTransmitting on: 1 04/27/2024 06:19 PM EST History and Physical Notes * [...]
--- OUTSIDE RECORDS SUMMARY | 2025-01-05 08:45 | XMS_ITS ---
Author Organization Jordan Gabriel MD Address [address] [place] [phone] Care Team Providers Care Commercial Drone Software Developer Name Role Phone Jordan Gabriel Primary [...] [facility] TWICE A DAY WITH MEALS Active Omeprazole [...] for 30 days 11/14/2017 Not-Taki ng Nystatin 401004 UNIT/GM APPLY DAILY TO S KIN TO [...] Date Provider Diagnosis Jordan Gabriel MD [address] [facility] [address] [place], [place] [phone] 01/05/2025 Jordan Gabriel Paroxysmal atrial fibrillation I48.0 [...] Up: 2 Months, Reason: Provider Name:Jordan ward, 03/09/2025 03:00:00 PM, [address] [place] [address], [address], [place], [phone], Provider Name:Jordan ward, 05/21/2025 01:45:00 PM, [address] [place] [address], [address], [place], [place], [phone], Provider Name:Jordan ward, 11/15/2025 07:15:00 AM, [address], [address], [place], [place], [phone], Provider Name:Jordan Cyr ier, 11/22/2025 10:30:00 AM, [address], [address], [place], [place], [phone], Progress Notes * KENYAnthony Mccall CDOB:1939 (84 yo M)Acc No.[id number]:01/05/2025 Progress Notes Patient: Anthony GARCIA Ina Provider: Emery Gabriel MD :1940 A ge:84 Y S ex:Male Date:01/05/2025 Address:[address] [facility] Subjective: * Chief Complaints: * 3 weekAccompanied [...] with food Orally Once a day Nystatin 755325 UNIT/GM Cream APPLY DAILY TO SKIN TO [...] food Orally Once a day Taking Nystatin 612865 UNIT/GM Cream APPLY DAILY TO SKIN TO [...] true * Provider: Emery Gabriel MD Date: 1 Generated for Gautam oh/Isaac/Editting on: 04/27/2024 06:18 PM EST History and Physical [...]
--- OUTSIDE RECORDS SUMMARY | 2025-02-24 18:17 | XMS_ITS | Patient Health Record ---
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 Role Phone Jordan Gabriel MD Primary Care Provider Patito Carpenter Unavailable [phone] Allergies No Known Allergies Results Component Value Reference Range Flag Notes Glucose, Whole Blood Reviewed date:07/25/2024 10:07:32 PM Interpretation: Performing Lab:[facility], [address] [place] [id number] Notes/Report: Glucose, Whole Blood 101 60-115 mg/dL [facility] #: [id number] Reason For Referral No Information Medications Medication [...] Problem Screening for malignant neoplasm of colon (307985767) Encounter for screening for malignant neoplasm of colon (Z12.11) Active confirmed Problem History of adenomatous polyp of colon (476177607) History of adenomatous polyp of colon (Z86.010) Active confirmed Problem Screening for malignant neoplasm of rectum (580963002) Encounter for screening for malignant neoplasm of rectum (Z12.12) Active confirmed Problem Dysphagia (98334002) Dysphagia (R13.10) Active confirmed Problem Iron deficiency anemia (12796725) Iron deficiency anemia (D50.9) Active confirmed Problem Gastric polyp (65340666) Gastric polyp (K31.7) Active confirmed Problem History of polyp of colon (situation) (051112875) Hx of colonic polyps (Z86.010) Active confirmed Problem Long-term current use of anticoagulant (628784196) Long-term (current) use of anticoagulants (Z79.01) Active confirmed Problem Iron deficiency anemia (90988699) Iron deficiency anemia, unspecified iron deficiency anemia type (D50.9) Active confirmed Problem Stricture of esophagus (55486238) History of esophageal stricture (Z87.19) Active confirmed Problem Esophageal reflux finding (416784366) Gastroesophageal reflux (K21.9) Active confirmed Problem Diverticulosis of sigmoid colon (838887781) Diverticulosis of sigmoid colon (K57.30) Active confirmed [...] Encounters Encounter Location Date Provider Diagnosis [facility] [address] [place], [place] [id number] 07/23/2024 Patito Andrews Esophageal stricture K22.2 and Hiatal hernia K44.9 [facility] [address] [place] [phone] 07/01/2024 Patito Andrews Dysphagia R13.10 ; History of esophageal stricture Z87.19 and Gastroesophageal reflux K21.9 [facility] [address] [place] [phone] 06/01/2024 Patito Andrews [facility] [address] [place] [phone] 07/23/2024 Patito Andrews Assessments Encounter Date Diagnosis [...] [place] [address] [place] [address] [id number] PATITO BUSTILLO Self - patient is the insured [employer] CLAIM[employer] [address] [place] [address] [phone] [id number] PATITO BUSTILLO Self - patient is the insured Medical (General) History Medical History History ICD Code Larger tubular adenoma with dysplasia re moved in 11/2008 from [facility] Colonoscopy 07-06-2009--small tubular cristina nomas Hyperlipidemia EGD in 11/2008 with a small HH and gastri tis-neg. H. pylori COPD/pneumonia Denies MS,CVA,renal disease HTN Asymptomatic gallstones-this had been reviewed with him on his previous office visit in August,---he had subsequent gallstone pancreatitis and cholecystectomy as below Upper endoscopy in August with a finding of a fibrotic distal esophageal stricture that was dilated successfully with balloons Colonoscopy in August of 2012 with removal of small tubular adenomas Atrial flutter/Atrial fib--sees Dr. Hazel watters [facility] Colonoscopy 06/2016-small tubular adenoma s [...]
--- OUTSIDE RECORDS SUMMARY | 2025-02-24 18:19 | XMS_ITS | Patient Health Record ---
Author Organization Jordan Gabriel MD Address [address] [place] [phone] Care Team Providers Care Cv Rn Name Role Phone Jordan Gabriel Primary Care Provider Allergies No Known Allergies Results Component Value Reference Range Notes Liver Panel Reviewed date:05/12/2024 04:52:54 PM Interpretation: Performing Lab:[facility], [address] [place] [phone] Notes/Report: Bilirubin Total 0.5 0.0-1.0 mg/dL Bilirubin Direct 0.2 0.0-0.5 mg/dL Aspartate Amino Transferase 28 5-37 U/L Alanine Aminotransferase 18 0-40 U/L Total Protein 7.1 6.5-8.0 g/dL Albumin Level 4.0 3.5-5.0 g/dL Alkaline Phosphatase 72 39-117 U/L Glucose Fasting Reviewed date:05/12/2024 04:53:04 PM Interpretation: Performing Lab:[facility], [address] [place] [phone] Notes/Report: Glucose Fasting 95 60-99 mg/dL Lipid Panel with Reflex Reviewed date:05/12/2024 04:53:13 PM Interpretation: Performing Lab:[facility], [address] [place] [phone] Notes/Report: Triglycerides 71 <150 mg/dL Desirable Triglyceride: [...] A1c Reviewed date:05/12/2024 12:07:37 PM Interpretation: Performing Lab:[facility], [address] [place] [phone] Notes/Report: Hemoglobin A1c % 6.0 <6.0 % [...] average glucose, using the formula of the N3N-Xzaxyfm Average Glucose study (ADAG), Diabetes Care, Vol.31,#8, 2007 Potassium Reviewed date:10/09/2024 12:34:47 PM Interpretation: Performing Lab:[facility], [address] [place] [phone] Notes/Report: Potassium 5.0 3.3-5.1 mmol/L Complete Blood Count Auto Di ff Reviewed date:11/10/2024 04:43:39 PM Interpretation: Performing Lab:[facility], [address] [place] [phone] Notes/Report: White Blood Count 14.2 4.8-10.8 X10*3/uL [...] NRBC Abs Auto 0.000 0.0-0.012 X10*3/uL Comprehensive [place]. Panel Fa st Reviewed date:12/08/2024 12:40:38 PM Interpretation:12-08-2024 Performing Lab:[facility], [address] [place] [phone] Notes/Report: Sodium 136 135-145 mmol/L Potassium 4.7 [...] PROFILE Reviewed date:11/10/2024 12:58:08 PM Interpretation: Performing Lab:[facility], [address] [place] [phone] Notes/Report: Iron 49 45-160 mcg/dL Total Iron Binding Capacity 282 228-428 mcg/dL Percent Iron Saturation 17 15-50 % Unsaturated Iron Binding 233 Lipid Panel Reviewed date:11/10/2024 12:57:18 PM Interpretation: Performing Lab:[facility], [address] [place] [phone] Notes/Report: Triglycerides 81 <150 mg/dL Desirable Triglyceride: [...] (Free>4and<10) Reviewed date:11/10/2024 01:00:52 PM Interpretation: Performing Lab:[address] [address] Notes/Report: PSA,Total (Free>4and<10) 2.37 0.00-4.00 ng/mL A [...] Reviewed date:11/10/2024 04:33:57 PM Interpretation: Performing Lab:[address] [address] Notes/Report: Creatinine Urine 44.71 Microalbumin Urine 9.0 Microalbum/Creatinine Ratio Ur 20.1 <30 ug/mg cr Albumin/Creatinine Ratio Reference Ranges: Normal: < 30 ug/mg creatinine Microalbuminuria: 30 - 300 ug/mg creatinine Clinical Albuminuria: > 300 ug/mg creatinine Hemoglobin A1c Reviewed date:11/10/2024 12:57:28 PM Interpretation: Performing Lab:[address] [address] Notes/Report: Hemoglobin A1c % 6.5 <6.0 % [...] average glucose, using the formula of the D0N-Cykfzlc Average Glucose study (ADAG), Diabetes Care, Vol.31,#8, Oct. 2007 UA ClnCatch+Micro w/rflx Cul t Reviewed date:11/11/2024 12:30:51 PM Interpretation: Performing Lab:[address] [address] Notes/Report: Urine, Clean Catch Color Urine Yellow Appearance Urine Clear PH 5.5 5.0-9.0 Glucose Urine UA Negative Negative mg/dL Urine Blood Negative Negative Specific Remer - Urine 1.010 1.005-1.025 Urine Protein Negative Neg-Trace mg/dL Urine Ketones Negative Negative mg/dL Nitrite Urine Negative Negative Leukocyte Esterase Urine Trace Negative RBC Urine 0-2 0-2 /HPF WBC Urine 0-5 0-5 /HPF Squamous Epithelial Cell Urine 0-2 0-2 /HPF Bacteria Urine None Seen None Seen Hyaline Casts Urine 0-2 0-2 /LPF Blood Urea Nitrogen Reviewed date:11/24/2024 01:52:49 PM Interpretation: Performing Lab:[facility], [address] [place] [phone] Notes/Report: Blood Urea Nitrogen 21 9-16 mg/dL Creatinine Reviewed date:11/24/2024 01:52:40 PM Interpretation: Performing Lab:[address] [address] Notes/Report: Creatinine 1.37 0.5-1.4 mg/dL Estimated Glomerular Filt Rate 50 Chronic Kidney Disease: Estimated GFR < 60 mL/min/1.73m2 Severe Kidney Disease: Estimated GFR < 15 mL/min/1.73m2 XR foot RT 2V Reviewed date:11/17/2024 04:42:26 PM Interpretation: Performing Lab: Notes/Report: [address] [address] XRay Report Signed Patient: Anthony Goodman MR#: [id number] : 1940 Acct:[id number] Age/Sex: 84 / M ADM Date: 11/17/24 Loc: HO.XRAY Attending Dr: Jordan Gabriel MD Ordering Physician: Jordan Gabriel MD Date of Service: 11/17/24 Procedure(s): XR foot RT 2V Accession Number(s): [id number] cc: Jordan Gabriel MD EXAMINATION: XR FOOT [...] 11/17/24 1137 DD/ 1115 TD/TT: 11/17/24 1123 Clinical Laboratory Director: [place] [address] XRay Report Signed Patient: Angelia Goodman Sr MR#: [id number] : 1940 Acct:[id number] Age/Sex: 84 / M ADM Date: 11/17/24 Loc: HO.XRAY Attending Dr: Jordan Gabriel MD Ordering Physician: Jordan Gabriel MD Date of Service: 11/17/24 Procedure(s): XR fernanda t RT 2V Accession Number(s): [id number] cc: Jordan Gabriel MD EXAMINATION: XR FOOT [...] 11/17/24 1137 DD/ 1115 TD/TT: 11/17/24 1123 Clinical Laboratory Director: Complete Blood Count Auto Di ff Reviewed date:04/07/2024 05:05:38 PM Interpretation: Performing Lab:[facility], [address] [place] [phone] Notes/Report: White Blood Count 7.3 4.8-10.8 X10*3/uL [...] Ferritin Reviewed date:04/07/2024 04:41:39 PM Interpretation: Performing Lab:[facility], [address] [place] [phone] Notes/Report: Ferritin 30 20-250 ng/mL Lactate Dehydrogenase Reviewed date:04/07/2024 05:05:11 PM Interpretation: Performing Lab:[facility], [address] [place] [phone] Notes/Report: Lactate Dehydrogenase 165 118-273 U/L Hold Gold Reviewed date:05/12/2024 12:08:08 PM Interpretation: Performing Lab:[facility], [address] [place] [phone] Notes/Report: Hold Gold See Note Specimen held untested for 24 hours; Call to request Chemistry testing. CT chest wo con Reviewed date:05/14/2024 08:55:12 AM Interpretation: Performing Lab: Notes/Report: [address] [place] [address] CT Scan Report Signed Patient: Anthony Goodman Sr MR#: [id number] : 1940 Acct:[id number] Age/Sex: 84 / M ADM Date: 05/13/24 Loc: HO.CT Attending Dr: Jannet Evans NP Ordering Physician: JANNET EVANS NP Date of Service: 05/13/24 Procedure(s): CT chest wo IV con Accession Number(s): [id number] cc: JANNET EVANS [employer]ER; Jordan Gabriel MD Report Number: [id number]: Total DLP = 168.00 mGy-cm EXAMINATION: CT [...] 11:42 AM [facility] Dictated By: Oseas Wallace MD Signed By: <Electronically signed by Oseas Wallace MD in OV> 05/13/24 1142 DD/ 1109 TD/TT: 05/13/24 1119 Clinical Laboratory Director: [address] [address] [address] Scan Report Signed Patient: Angelia Goodman Sr MR#: [id number] : 1940 Acct:[id number] Age/Sex: 84 / M ADM Date: 05/13/24 Loc: HO.CT Attending Dr: Jannet Evans NP Ordering Physician: JANNET EVANS NP Date of Service: 05/13/24 Procedure(s): CT [facility] wo IV con Accession Number(s): [id number] cc: JANNET EVANS NP ; Jordan Gabriel [...] 11:42 AM [facility] Dictated By: Oseas Wallace MD Signed By: <Electronically signed by Oseas Wallace MD in OV> 05/13/24 1142 DD/ 1109 TD/TT: 05/13/24 1119 Clinical Laboratory Director: Complete Blood Count no Diff Reviewed date:07/07/2024 11:32:23 AM Interpretation: Performing Lab:[facility], [address] [place] [phone] Notes/Report: White Blood Count 6.7 4.8-10.8 X10*3/uL [...] Panel Reviewed date:07/07/2024 11:32:43 AM Interpretation: Performing Lab:[facility], [address] [place] [phone] Notes/Report: Sodium 138 135-145 mmol/L Potassium 4.6 [...] Ferritin Reviewed date:07/07/2024 11:31:21 AM Interpretation: Performing Lab:[facility], [address] [place] [phone] Notes/Report: Ferritin 45 20-250 ng/mL SARS-CoV2/FLU/RSV Reviewed date:07/13/2024 04:20:38 PM Interpretation: Performing Lab:[facility], [address] [place] [phone] Notes/Report: Influenza A PCR NEGATIVE Negative Influenza [...] by authorized laboratories. Testing performed on the [employer] GeneXpert utilizing real-time RT-PCR. All SARS CoV2 and positive influenza A/B results are reported to [facility]. XR chest 2V Reviewed date:07/13/2024 04:21:30 PM Interpretation: Performing Lab: Notes/Report: [facility] [place] [address] XRay Report Signed Patient: Anthony Goodman Sr MR#: [id number] : 1940 Acct:[id number] Age/Sex: 84 / M ADM Date: 07/11/24 Loc: [place] [place]: Awilda ARTIS Ordering Physician: Awilda Lozoya Date of Service: 07/11/24 Procedure(s): XR chest 2V Accession Number(s): [id number] cc: Jordan Gabriel MD; Awilda Lozoya CLINICAL [...] 07/11/24 1036 DD/ 1035 TD/TT: 07/11/24 1035 Clinical Laboratory Director: [facility] [address] [place] [address] [place] [address] XRay Report Signed Patient: Angelia Goodman Sr MR#: [id number] : 1940 Acct:[id number] Age/Sex: 84 / M ADM Date: 07/11/24 Loc: HO.HMGCX Attending Dr: Geoffrey ARTIS Ordering Physician: Awilda Lozoya Date of Service: 07/11/24 Procedure(s): XR chest 2V Accession Number(s): [id number] cc: Jordan Gabriel MD; Awilda Lozoya CLINICAL [...] 07/11/24 1036 DD/ 1035 TD/TT: 07/11/24 1035 Clinical Laboratory Director: Glucose, Whole Blood Reviewed date:07/23/2024 02:25:52 PM Interpretation: Performing Lab:[facility], [address] [place] [phone] Notes/Report: Glucose, Whole Blood 101 60-115 mg/dL METER # : [id number] Complete Blood Count Auto Di ff Reviewed date:10/06/2024 05:13:16 PM Interpretation: Performing Lab:[facility], [address] [place] [phone] Notes/Report: White Blood Count 7.4 4.8-10.8 X10*3/uL [...] Panel Reviewed date:10/06/2024 03:35:55 PM Interpretation: Performing Lab:[facility], [address] [place] [phone] Notes/Report: Sodium 142 135-145 mmol/L Potassium 5.4 [...] Ferritin Reviewed date:10/06/2024 12:19:56 PM Interpretation: Performing Lab:[facility], [address] [place] [phone] Notes/Report: Ferritin 28 20-250 ng/mL Haptoglobin Reviewed date:10/06/2024 12:19:09 PM Interpretation: Performing Lab:[facility], [address] [place] [phone] Notes/Report: Haptoglobin 200 40-268 mg/dL US venous duplex LE LT Reviewed date:11/02/2024 11:56:32 AM Interpretation: Performing Lab: Notes/Report: [address] [address] Ultrasound Report Signed Patient: Anthony Goodman Sr MR#: [id number] : 1940 Acct:[id number] Age/Sex: 84 / M ADM Date: 11/02/24 Loc: HO.US Attending Dr: Jordan Gabriel MD Ordering Physician: Jordan Gabriel MD Date of Service: 11/02/24 Procedure(s): US venous duplex LE LT Accession Number(s): [id number] cc: Jordan Gabriel MD EXAMINATION: US LOWER [...] 11/02/24 1128 DD/ 1106 TD/TT: 11/02/24 1114 Clinical Laboratory Director: [address] [address] Ultrasound Report Signed Patient: Angelia Goodman Sr MR#: [id number] : 1940 Acct:[id number] Age/Sex: 84 / M ADM Date: 11/02/24 Loc: .US Attending Dr: Jordan Gabriel MD Ordering Physician: Jordan Gabriel MD Date of Service: 11/02/24 Procedure(s): US christopher ous duplex LE LT Accession Number(s): [id number] cc: Jordan Gabriel MD EXAMINATION: US LOWE [...] 11/02/24 1128 DD/ 1106 TD/TT: 11/02/24 1114 Clinical Laboratory Director: Liver Panel Reviewed date:02/11/2025 07:50:12 AM Interpretation: Performing Lab:[address] [address] Notes/Report: Bilirubin Total 0.4 0.0-1.0 mg/dL Bilirubin Direct 0.2 0.0-0.5 mg/dL Aspartate Amino Transferase 24 5-37 U/L Alanine Aminotransferase 22 0-40 U/L Total Protein 7.2 6.5-8.0 g/dL Albumin Level 4.3 3.5-5.0 g/dL Alkaline Phosphatase 75 39-117 U/L TSH reflex Free T4 Reviewed date:02/11/2025 07:50:20 AM Interpretation: Performing Lab:[address] [place] [address] Notes/Report: TSH reflex Free T4 1.42 0.32-4.0 uIU/mL NT Pro B Type Natriuretic Pe pt Reviewed date:02/11/2025 12:41:49 PM Interpretation: Performing Lab:[address] [address] Notes/Report: NT Pro B Type Natriuretic Pept [...] date:02/11/2025 12:42:28 PM Interpretation: Performing Lab: Notes/Report: [address] [address] XRay Report Signed Patient: Anthony Goodman Sr MR#: [id number] : 1940 Acct:[id number] Age/Sex: 84 / M ADM Date: 02/10/25 Loc: CINDA Attending Dr: Darryl Padilla MD Ordering Physician: Darryl Padilla MD Date of Service: 02/10/25 Procedure(s): XR chest 2V Accession Number(s): [id number] cc: Jordan Gabriel MD; Darryl Padilla MD [...] 02/10/25 1447 DD/ 1431 TD/TT: 02/10/25 143 Clinical Laboratory Director: [place] [address] XRay Report Signed Patient: Angelia Goodman Sr MR#: [id number] : 1940 Acct:[id number] Age/Sex: 84 / M ADM Date: 02/10/25 Loc: HO.XRAY Attending Dr: Darryl Padilla MD Ordering Physician: Darryl Padilla MD Date of Service: 02/10/25 Procedure(s): XR chest 2V Accession Number(s): [id number] cc: Jordan Gabriel MD; Darryl aPdilla MD Reason for Exam: I48 .21 - [...] 02/10/25 1447 DD/ 1431 TD/TT: 02/10/25 1435 Clinical Laboratory Director: GA cardiolite stress test Reviewed date:02/24/2025 01:36:18 PM Interpretation: Performing Lab: Notes/Report: [address] [address] Nuclear Medicine Report Signed Patient: Anthony Goodman Sr MR#: [id number] : 1940 Acct:[id number] Age/Sex: 84 / M ADM Date: 02/17/25 Loc: [facility] Attending Dr: Darryl Padilla MD Ordering Physician: Darryl Padilla MD Date of Service: 02/17/25 Procedure(s): GA cardiolite stress test Accession Number(s): [id number] cc: Jordan Gabriel MD; Darryl Padilla MD Reason for Exam: I50.30 - Unspecified diastolic (congestive) heart failure // LEXISCAN Lexiscan Myocardial perfusion study Indication: Coronary artery disease Technique: The patient was brought in for a Lexiscan perfusion study on 02/17/2025 and was injected 0.4 mg of Lexiscan intravenously. Within a minute of this injection 25 mCi of sestamibi was given intravenously. Images were obtained using the SPECT gamma camera interlaced with the gating device. Images were obtained in supine position. Resting perfusion study was performed on 02/23/2025. Patient was administered 25 mCi of sestamibi intravenously at rest. Images were then obtained in supine position. Total DLP 115 mGy-cm. Arms by the patient's side Images were processed with the software and compared side to side in short axis, horizontal long axis and vertical long axis views. Findings: Raw aquisition reviewed. The stress perfusion study showed no significant perfusion abnormality. Both uncorrected as well as CT attenuation corrected images were reviewed. The gated study shows normal LV systolic function with calculated LVEF of 56%. LV cavity is normal in size. The gated study shows normal wall thickening and contraction of segments. Resting study shows no significant perfusion abnormality. Gating at rest reveals normal wall motion with ejection fraction at > 70%. The findings are consistent with no clear reversible or fixed perfusion abnormality. NM/NM cardiolite stress test Impression: 1. Myocardial perfusion imaging study shows probably normal myocardial perfusion. 2. Gated LVEF is 56% during stress and > 70% during rest. Correlate with echocardiogram. 3. Transient ischemic dilatation not present. EKG component of the test reported separately. Electronically signed by: Todd Chacko MD 02/23/2025 03:55 PM EST Dictated By: Todd Chacko MD Signed By: <Electronically signed by Todd Chacko MD in OV> 02/23/25 1555 DD/ 0952 TD/TT: 02/23/25 0830 Clinical Laboratory Director: [place] [address] Nuclear Medicine Report Signed Patient: Angelia Goodman MR#: [id number] : 1940 Acct:[id number] Age/Sex: 84 / M ADM Date: 02/17/25 Loc: .CARD Attending Dr: Darryl Padilla MD Ordering Physician: Darryl Padilla MD Date of Service: 02/17/25 Procedure(s): GA cardiolite stress test Accession Number(s): [id number] cc: Jordan Gabriel MD; Darryl Padilla MD Reason for Exam: I50 .30 - Unspecified diastolic (congestive) heart failure // LEXISCAN Lexiscan Myocardial perfusion study Indication: Coronary artery disease Technique: The patient was brou t in for a Lexiscan perfusion study on 02/17/2025 and was injected 0.4 mg of Lexiscan intravenously. Within a minute of this injection 25 mC i of sestamibi was given intravenously. Images were obtained using the [employer] gamma camera interlaced with the gating device. Images were obtained in supine position. Resting perfusion st udy was performed on 02/23/2025. Patient was administered 25 mCi of sestamibi intravenously at rest. Images were then obtained in sup ine position. Total DLP 115 mGy-cm. Arms by the patient's side Images were processe d with the software and compared side to side in short axis, horizont al long axis and vertical long axis views. Findings: Raw aquisition reviewed. The stress perfusion study showed no significant perfusion abnormality. Both uncorrected as well as CT attenuation corrected images were reviewed . The gated study shows normal LV systolic function with calculated LVEF of 56%. LV cavity is normal in size. The gated study shows normal w all thickening and contraction of segments. Resting study shows no significant perfusion abnormality. Gating at rest reveals normal wall motion with ejection fraction at > 70%. The findings are consistent with no clear reversible or fixed perfusion abnormality. N M/NM cardiolite stress test Impression: 1. Myocardial perfus ion imaging study shows probably normal myocardial perfusion. 2. Gated LVEF is 56% during stress and > 70% during rest. Correlate with echocardiogram. 3. Transient ischemi c dilatation not present. EKG component of the test reported separately. Electronically cole d by: Todd Chacko MD 02/23/2025 03:55 PM EST RP Workstatio n: [id number] Dictated By: Todd Chacko MD Signed By: <Electronically signed by Todd Chacko MD in OV> 02/23/25 1555 DD/ 0952 TD/TT: 02/23/25 0830 Clinical Laboratory Director: Reason For Referral Reason please homero and mynor tovar Diagnosis 1 Esophageal dysfuncti on (K22.4) [...] HCl 500 MG TAKE 1 TABLET BY [facility] TWICE A DAY WITH MEALS for 90 Active Nystatin 010419 UNIT/GM APPLY DAILY TO S KIN TO [...] Twice a day for 30 days 11/14/2017 Not-Takpedrito ng Immunizations Vaccine Route Administration Date Status Comme nts Flu Vaccine Unknown 01/10/2012 Administered given at [facility] PPSV23 (Pnemovax) Unknown 01/10/2012 [place] [facility] Unknown 01/07/2014 Administered Flu Vaccine Unknown 12/31/2013 Administered [place] [facility] [place]ar 13 IM Intramuscular 08/20/2014 Administered Flu Vaccine IM Intramuscular 12/22/2014 Administered pt re cieved high dose flu vaccine at [facility], Fluarix Quadrivalent Unknown 12/21/2015 Administered Wa lgrrocco's at [facility] Unknown 01/26/2015 Administered [facility] Fluarix Quadrivalent IM Intramuscular 12/06/2016 Administe dae PPSV23 (Pnemovax) IM Intramuscular 04/15/2017 Administered Influenza High Dose Unknown 12/17/2017 Administered [facility] Fluarix Quadrivalent IM Intramuscular 12/19/2018 Adminvidya pearl pt was given the vaccine at [facility] in [place]. Influenza High Dose IM Intramuscular 12/04/2019 Administer [...] Problem Status W/U Status Risk Notes Problem 44500152 Type 2 diabetes mellitus without complications (E11.9) Active confirmed Problem Atrial fibrillation (49800441) Atrial fibrillation (I48.91) Active confirmed Problem Gout attack (160117430) Gout attack (M10.9) Active confirmed Problem 408001953 Paroxysmal atria l fibrillation (I48.0) Active confirmed Problem 0921248 Panlobular emphy sema (J43.1) Active confirmed Problem 76064184 Essential hypert ension (I10) Active confirmed Problem 075106719 Low HDL (under 4 0) (E78.6) Active confirmed Problem 313715254 Lung nodule (R91.1) Active confirmed Problem 214307345 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) Active confirmed Problem Chronic obstructive pulmonary disease with acute lower respiratory infection (297869087) COPD (chronic obstructive pulmonary disease) with acute bronchitis (J44.0) Active confirmed Problem 86264880 Iron deficiency anemia, unspecified iron deficiency anemia type (D50.9) Active confirmed Problem Claudication (70153579) Claudication (I73.9) Active confirmed Problem 727210589 Adenoma (D36.9) Active confirmed Problem 9817910935766288 Acute idiopathi c gout involving toe of left foot (M10.072) Active confirmed Problem 01467478 Lymphadenopathy, mediastinal (R59.0) Active confirmed Problem 756157530 Rising PSA level (R97.20) Active confirmed Problem 257107504 History of calcu leonard of gallbladder (Z87.19) Active confirmed Problem 374278148 Pure hypercholesterolemia (E78.00) Active confirmed Problem Gout (40646590) Acute gout of le ft foot, unspecified cause (M10.9) Active confirmed Problem 33062409 Hip arthritis (M16.10) Active confirme d Problem 634842180 Adenocarcinoma o f lung, 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) Active confirmed Problem 594303101 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 Problem 599013584 Esophageal dysfu nction (K22.4) Active confirmed Problem 505379008 Lower esophageal ring (Schatzki) (K22.2) Active confirmed [...] Jordan Gabriel MD [address] [place] [id number] 05/12/2024 Jordan Gabriel Type 2 diabetes mina itus without complications E11.9 and Pure hypercholesterolemia E78.00 Jordan Gabriel MD [address] [place] [id number] 10/09/2024 Jordan Gabriel Hyperkalemia E87.5 Jordan Gabriel MD [address] [id number] 11/10/2024 Jordan Gabriel Type 2 diabetes mina itus without complications E11.9 ; Pure hypercholesterolemia E78.00 ; Rising PSA level R97.20 ; Iron deficiency anemia, unspecified iron deficiency anemia type D50.9 and Essential hypertension I10 Jordan Gabriel MD [address] [place] [id number] 11/24/2024 Jordan Gabriel Paroxysmal atrial fibrillation I48.0 Jordan Gabriel MD [address] [place] [id number] 11/24/2024 Jordan Gabriel Encounter for administration of vaccine Z23 Jordan Gabriel MD [address] [place] [address] [address] [place] [id number] 05/19/2024 Jordan Gabriel Encounter for genera l adult medical examination with abnormal findings Z00.01 ; Esophageal dysfunction K22.4 ; Pure hypercholesterolemia E78.00 and Type 2 diabetes mellitus without complications E11.9 Jordan Gabriel MD [address] [place] [id number] 07/24/2024 Jordan Gabriel Gout attack M10.9 Jordan Gabriel MD [address] [place] [id number] 11/02/2024 Jordan Raier Gout attack M10.9 an d Leg edema R60.0 Jordan Gabriel MD [address] [place] [id number] 11/09/2024 Jordan Gabriel Gout attack M10.9 an d Leg edema R60.0 Jordan Gabriel MD [address] [place] [address] [id number] 11/17/2024 Jordan Gabriel Foot pain, right M79 .671 ; Paroxysmal atrial fibrillation I48.0 ; Elevated BUN R79.9 ; Type 2 diabetes mellitus without complications E11.9 ; Pure hypercholesterolemia E78.00 ; Essential hypertension I10 ; Iron deficiency anemia, unspecified iron deficiency anemia type D50.9 and COPD (chronic obstructive pulmonary disease) with acute bronchitis J44.0 Jordan Gabriel MD [address] [place] [address] [id number] 12/08/2024 Jordan Gabriel Panlobular emphysema J43.1 ; Atrial fibrillation I48.91 and Edema R60.9 Jordan Gabriel MD [address] [place] [address] [id number] 01/05/2025 Jordan Gabriel Paroxysmal atrial fibrillation I48.0 ; Essential hypertension I10 ; COPD (chronic obstructive pulmonary disease) with acute bronchitis J44.0 and Edema R60.9 Jordan Gabriel MD [address] [place] [address] [id number] 07/17/2024 Jordan Gabriel MD [address] [place] [address] [id number] 09/08/2024 Jordan Gabriel Assessments Encounter Date Diagnosis [...] [place] [facility] [place] 11/09/2024 Gout attack [...] 03:00:00 PM, [address], [address], [place], [phone], Provider Name:Jordan Cyr ier, 05/21/2025 01:45:00 PM, [address], [address], [place], [phone], Provider Name:Jordan Cyr ier, 11/15/2025 07:15:00 AM, [address], [address], [place], [phone], Provider Name:Jordan Cyr ier, 11/22/2025 10:30:00 AM, [address], [address], [place], [phone], Insurance Providers Payer Name Payer Address Payer Phone Subscriber Number Group Number Insured Name Patient Relationship to Insured Coverage Start Date Coverage End Date MEDICARE NHIC FLIP [address] [place] [address] [id number] MaxienAnthony mae Self - patient is the insured [facility] [address] [place], [place] [phone] [id number] Anthony Goodman Self - patient is [...]
--- NOTE | 2025-02-26 09:59 | HO.ANESPROP2 ---
Documented by User: Meg Bolden NP 03/05/25 13:00 HPI - Anesthesia Eval Consult details Narrative: 85yo M for Cardioversion s/p Upper Endoscopy with Balloon Dilitation 06/2024 with TIVA CAD s/p CABG 2017, PAF (xarelto) Lung CA s/p ANDREW wedge resection 2017, RUL lobectomy 1991 [facility] Active Problems Active Problems: All Active Problems Persistent atrial fibrillation (Acute) Heart failure with preserved ejection fraction (Acute) De Quervain's tenosynovitis, right (Acute) Osteoarthritis of carpometacarpal joint of right thumb (Acute) Lumbar stenosis with neurogenic claudication (Acute) Diastolic dysfunction (Acute) Mallet deformity of right ring finger (Acute) Spinal stenosis (Acute) History of total left hip arthroplasty (Acute) Chronic pain syndrome (Acute) Spinal stenosis, lumbar (Acute) Bilateral leg cramps (Acute) Anemia (Chronic) PVD (peripheral vascular disease) (Acute) CAD (coronary artery disease) (Acute) Hyperlipidemia (Acute) Diabetes mellitus (Acute) HTN (hypertension) (Acute) Past Medical History Medical History Persistent atrial fibrillation Atrial fibrillation and flutter Arthritis Hiatal hernia COVID-19 On anticoagulant therapy History of blood transfusion Severe sepsis Gallstone pancreatitis GARTH (acute kidney injury) PVD (peripheral vascular disease) History of cancer COPD (chronic obstructive pulmonary disease) GERD (gastroesophageal reflux disease) Hyperlipidemia Diabetes mellitus HTN (hypertension) Paroxysmal atrial fibrillation CAD (coronary artery disease) Family History Family history of problems with anesthesia: No Surgical History Surgical History History of surgery on wrist Hx of spinal surgery History of esophagogastroduodenoscopy (EGD) H/O colonoscopy H/O excision of mass History of excision of lesion History of laparoscopic cholecystectomy History of arthroplasty of left hip History of lobectomy of lung H/O heart surgery History of Problems with Anesthesia: No Social History Social History Household Members: Spouse Housing: House Are you a primary dog day care attendant to a significant other at home: No Do you presently have visiting nurse or other home services: No Alcohol intake: former Patient Tobacco Use Status: Former Tobacco user Tobacco use type: Cigarette Cigarette Packs Per Day: 1 service: Yes 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 Meds Allergies Allergy/AdvReac Type Severity Reaction Status Date / Time No Known Allergies Allergy Verified 07/23/24 12:25 Home Medications ?Medication ?Instructions ?Recorded ?Confirmed ?Last Taken ?Type ferrous sulfate 325 mg (65 mg 325 mg PO DAILY 09/01/20 03/02/25 02/27/25 History iron) tablet (Feosol) multivitamin 1 tab PO DAILY 09/01/20 03/02/25 03/01/25 History omeprazole 20 mg tablet,delayed 20 mg PO BEDTIME 09/01/20 03/02/25 03/02/25 History release metformin 500 mg tablet 500 mg PO BID 09/27/20 03/02/25 03/01/25 History cholecalciferol (vitamin D3) 50 50 mcg PO DAILY 08/01/23 03/02/25 03/01/25 History mcg (2,000 unit) tablet (Vitamin D3) cyanocobalamin (vitamin B-12) 1,000 mcg PO DAILY 08/01/23 03/02/25 03/01/25 History 1,000 mcg tablet (Vitamin B-12) calcium 600 mg (as 1 tab PO BID 07/21/24 03/02/25 03/01/25 History carbonate)-vitamin D3 5 mcg (200 unit) tablet budesonide-formoterol HFA 160 2 puff inhalation BID 02/10/25 03/02/25 03/01/25 History mcg-4.5 mcg/actuation aerosol inhaler (Symbicort) furosemide 20 mg tablet (Lasix) 20 mg PO DAILY 02/10/25 03/02/25 03/01/25 History lisinopril 20 mg tablet 20 mg PO DAILY 03/02/25 03/02/25 03/01/25 History Exam Pertinent Lab Results Pertinent Lab Results: Laboratory Tests 11/10/24 11/24/24 08:00 07:30 WBC 14.2 H Hgb 11.4 L Hct 35.8 L Plt Count 450 H D Sodium 136 Potassium 4.7 Chloride 101 Carbon Dioxide 24 BUN 21 H Creatinine 1.37 Narrative Narrative: EKG 01/2025 EKG Details: EKG shows atrial fibrillation with slow ventricular response at 53 beats per minute Nuc Stress 2024 NM cardiolite stress test Impression: 1. Myocardial perfusion imaging study shows probably normal myocardial perfusion. 2. Gated LVEF is 56% during stress and > 70% during rest. Correlate with echocardiogram. 3. Transient ischemic dilatation not present. ECHO 2024 Conclusions: - The left ventricular systolic function is normal. The calculated ejection fraction is 61% by biplane method. - Moderately increased right ventricular cavity size. - The left atrium is moderately dilated. - No obvious valvular pathology seen on this study. 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 Assessment and Plan Assessment Anesthesia Assessment: Chart Reviewed Final Anesthetic Review Family History of Problems with Anesthesia: No History of Problems with Anesthesia: No Documented by User: Vinnie Lemos MD 03/09/25 16:35 [facility] Past Medical History Medical History Persistent atrial fibrillation Atrial fibrillation and flutter Arthritis Hiatal hernia COVID-19 On anticoagulant therapy History of blood transfusion Severe sepsis Gallstone pancreatitis GARTH (acute kidney injury) PVD (peripheral vascular disease) History of cancer COPD (chronic obstructive pulmonary disease) GERD (gastroesophageal reflux disease) Hyperlipidemia Diabetes mellitus HTN (hypertension) Paroxysmal atrial fibrillation CAD (coronary artery disease) Surgical History Surgical History History of surgery on wrist Hx of spinal surgery History of esophagogastroduodenoscopy (EGD) H/O colonoscopy H/O excision of mass History of excision of lesion History of laparoscopic cholecystectomy History of arthroplasty of left hip History of lobectomy of lung H/O heart surgery Social History Social History Household Members: Spouse Housing: House Are you a primary dog day care attendant to a significant other at home: No Do you presently have visiting nurse or other home services: No Alcohol intake: former Patient Tobacco Use Status: Former Tobacco user Tobacco use type: Cigarette Cigarette Packs Per Day: 1 service: Yes 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 Meds Allergies Allergy/AdvReac Type Severity Reaction Status Date / Time No Known Allergies Allergy Verified 07/23/24 12: Home Medications ?Medication ?Instructions ?Recorded ?Confirmed ?Last Taken ?Type ferrous sulfate 325 mg (65 mg 325 mg PO DAILY 09/01/20 03/02/25 02/27/25 History iron) tablet (Feosol) multivitamin 1 tab PO DAILY 09/01/20 03/02/25 03/01/25 History omeprazole 20 mg tablet,delayed 20 mg PO BEDTIME 09/01/20 03/02/25 03/02/25 History release metformin 500 mg tablet 500 mg PO BID 09/27/20 03/02/25 03/01/25 History cholecalciferol (vitamin D3) 50 50 mcg PO DAILY 08/01/23 03/02/25 03/01/25 History mcg (2,000 unit) tablet (Vitamin D3) cyanocobalamin (vitamin B-12) 1,000 mcg PO DAILY 08/01/23 03/02/25 03/01/25 History 1,000 mcg tablet (Vitamin B-12) calcium 600 mg (as 1 tab PO BID 07/21/24 03/02/25 03/01/25 History carbonate)-vitamin D3 5 mcg (200 unit) tablet budesonide-formoterol HFA 160 2 puff inhalation BID 02/10/25 03/02/25 03/01/25 History mcg-4.5 mcg/actuation aerosol inhaler (Symbicort) furosemide 20 mg tablet (Lasix) 20 mg PO DAILY 02/10/25 03/02/25 03/01/25 History lisinopril 20 mg tablet 20 mg PO DAILY 03/02/25 03/02/25 03/01/25 History Assessment and Plan Assessment Anesthesia Assessment: Anesthesia Plan Discussed Final Anesthetic Review NPO: Yes ASA Class: III Final Preanesthetic Review: No Changes in Pt Med Stat, Meds/Allgs Chart Reviewed, Consent Obtained/Reviewed and DNR Form (If Appl.) Patient Risk: Intermediate Procedure Risk: Low Anesthetic Plan Anesthetic Plan: MAC: Disposition: Standard PACU
[2025-03-02 06:02] VITALS: BMI 26.4
--- NOTE | 2025-03-02 12:09 | MHC.SHP ---
Pre-Procedural Eval Section A - 24 Hr Update-Section A only Date of Service: 03/02/25 The patient is an INPATIENT: No Changes since office visit: Yes Changes in Medication and Yes Patient answered all questions; No Cold of Flu in the past 2 weeks and No New Medical Problems The patient has been examined within 24 hours of the surgical procedure. The History & Physical has been completed within 30 days and I have reviewed it.: Yes Section B - Complete if H&P > 30 days Chief Complaint: Other persistent atrial fibrillation Allergies: Allergies Allergy/AdvReac Type Severity Reaction Status Date / Time No Known Allergies Allergy Verified 07/23/24 12:25 Plan I have reviewed the history and physical and performed a pertinent physical examination on my patient. No changes have occurred unless specified. Time Spent With Patient Time: Total time managing care of this patient today ____ minutes.
[2025-03-02 13:04] LABS: Glucose, Whole Blood 102 mg/dL (60-115)
[2025-03-02 13:26] VITALS: BP 132/54; PULSE 54; RESP 17; TEMP 36.9; O2SAT 96; BMI 26.6
[2025-03-02 14:17] VITALS: BP 140/40; PULSE 45; RESP 18; TEMP 36.1; O2SAT 100
[2025-03-02 14:20] VITALS: BP 127/31; PULSE 42; RESP 15; O2SAT 96
--- NOTE | 2025-03-02 14:24 | ECG_ITS ---
Test Reason : POST CARDIOVERSION Blood Pressure : */* mmHG Vent. Rate : 43 BPM Atrial Rate : 35 BPM P-R Int : * ms QRS Dur : 94 ms QT Int : 554 ms P-R-T Axes : * 70 56 degrees QTcB Int : 468 ms Possible Marked sinus bradycardia Otherwise normal ECG When compared with ECG of 13-Aug-2020 22:29, Ventricular rhythm has decreased Referred By: Darryl Padilla Electronically Signed By: DARRYL PADILLA MD
[2025-03-02 14:25] VITALS: BP 135/40; PULSE 43; RESP 15; O2SAT 96
[2025-03-02 14:30] VITALS: BP 149/43; PULSE 42; RESP 14; O2SAT 96
[2025-03-02 14:43] VITALS: BP 126/42; PULSE 42; RESP 14; TEMP 36.1; O2SAT 95
--- NOTE | 2025-03-02 14:59 | P.PNCAR_ITS ---
Cardioversion Procedure Note Cardioversion Date of Procedure: 03/02/2025 Ordering Provider: Jovan Padilla Performing Provider: Jovan Padilla Indication for Procedure: Symptomatic persistent atrial fibrillation Pre-Op Diagnosis: Same Post-Op Diagnosis: Sinus bradycardia with occasional junctional Performed with Transesophageal Echo: No History: See my office note Consent: Verbal and Written consent was obtained from the patient before starting and after confirming oral anticoagulation as well as amiodarone use. The patient was made aware of the risk of synchronized cardioversion including benefits and alternatives Procedure: After consent obtained, cardioversion pads were attached in anteroposterior co nfiguration and the patient was sedated by the anesthesia team. Once adequate sedation achieved, was delivered 200 joules of biphasic synchronized energy in anteroposterior configuration x2. Complications: None Impression: Successful conversion to sinus rhythm Recommendations: 1. Patient required 2 attempts with very small P-waves suggestive of atrial myopathy. Occasional junctional rhythm noted. 2. Twelve lead EKGs 3. Start metoprolol therapy 4. Continue amiodarone and Xarelto. 5. If has recurrent atrial fibrillation which is highly likely will refer to EPS for consideration for ablation
--- NOTE | 2025-03-02 15:47 | PC.NURSE ---
PATIENT WAS INSTRUCTED TO STOP METOPROLOL PER DR. MARRUFO'S ORDERS.
== END 2025-03-02 15:48 | disposition home or self-care (01) ==
PROVIDERS: PCP Internal Medicine; Visit Provider Internal Medicine Cardiovascular Disease
PROC: 5A2204Z Restoration of Cardiac Rhythm, Single (ICD-10-PCS; principal; 2025-03-02 14:00)
DX: I48.19 Other persistent atrial fibrillation (principal); R00.1 Bradycardia, unspecified; Z79.01 Long term (current) use of anticoagulants
CPT/HCPCS: 82947; 92960; 93005; J2704

== ENCOUNTER → 2025-03-02 12:18 | Outpatient (BNV) | payer MEDICARE, SELFPAY | PROVIDERS: PCP Internal Medicine; Visit Provider Internal Medicine Cardiovascular Disease | DX: I48.91 Unspecified atrial fibrillation (principal); R00.1 Bradycardia, unspecified | CPT/HCPCS: 92960; 93010 ==

== ENCOUNTER 2025-03-11 09:24 | Outpatient (REF) | payer MEDICARE, SELFPAY ==
[2025-03-11 11:53] LABS: Anion Gap 14 (12-20); Blood Urea Nitrogen 27 mg/dL (9-16); Calcium 9.4 mg/dL (8.4-10.2); Carbon Dioxide 26 mmol/L (22-29); Chloride 106 mmol/L (96-108); Estimated Glomerular Filt Rate 35; Potassium 4.7 mmol/L (3.3-5.1); Sodium 141 mmol/L (135-145)
== END 2025-03-11 09:25 ==
LOC: HO.LAB 09:24
PROVIDERS: PCP Internal Medicine; Visit Provider Nurse Practitioner Family
DX: I48.19 Other persistent atrial fibrillation (principal)
CPT/HCPCS: 36415; 80048

== ENCOUNTER 2025-03-16 14:25 | Outpatient (AMB) | payer MEDICARE, SELFPAY ==
--- OUTSIDE RECORDS SUMMARY | 2024-07-23 09:20 | XMS_ITS ---
Author Organization [facility] Address [address] [place] [address] Care Team Providers Care Freight Weigher Name Role Phone Jordan Gabriel MD Primary Care Provider Patito Carpenter Unavailable [phone] REASON FOR VISIT gerd,hx esophageal stricture,dysphagia Encounters Encounter Location Date Provider Diagnosis [facility] [place] [address] [place] [address] [place] [phone] 07/23/2024 Patito Andrews Esophageal strictu re K22.2 and Hiatal hernia K44.9 Assessments Encounter Date Diagnosis (ICD Code) Assessment Notes Treatment Notes Treatment Clinical Notes Section Notes 07/23/2024 Esophageal stricture (ICD-10 - K22.2) 07/23/2024 Hiatal hernia (ICD-10 - K44.9) Plan Of Treatment No Information Progress Notes * PATITO BUSTILLO CDOB:1939 (85 yo M)Acc No.[id number]:07/23/2024 EGD/MAC Patient: Carlota BRICENO PATITO Buckley Provider: Jose Francisco Andrews MD :1940 A ge:84 Y S ex:Male Date:07/23/2024 Address: [id number] Pcp:Jordan Gabriel MD Subjective: * Chief Complaints: * G erd,hx esophageal stricture,dysphagia Assessment: * Assessment: 1. E sophageal stricture - K22.2 (Primary) 2 . H iatal hernia - K44.9 ? Plan: * Procedure Codes: 4 3249 ESOPH ENDOSCOPY, DILATION Billing Information: * Procedure Codes: 11134 ESOPH ENDOSCOPY, DILATION. * The named appointment provid er may or may not be the originator of this progress note, and it is not deemed complete until electronically signed by the appointment provider. Sign off status: Pending * Provider: Jose Francisco Andrews MD Date: 0 07/23/2024 Generated for Gautam oh/Isaac/Editting on: 05/17/2024 03:40 PM EST
--- OUTSIDE RECORDS SUMMARY | 2024-10-09 04:00 | XMS_ITS ---
Author Organization Jordan Gabriel MD Address [address] [place] [phone] Care Team Providers Care Flight Deck Officer Name Role Phone Nery Jordan Primary Care Provider Results Component Value Reference Range Notes Potassium Reviewed date:10/09/2024 12:34:47 PM Interpretation: Performing Lab:[facility], [address] [place] [phone] Notes/Report: Potassium 5.0 3.3-5.1 mmol/L REASON FOR VISIT Potassium Encounters Encounter Location Date Provider Diagnosis Jordan Gabriel MD [address] [place] [phone] 10/09/2024 Jordan Gabriel Hyperkalemia E87.5 Assessments Encounter Date Diagnosis (ICD Code) Assessment Notes Treatment Notes Treatment Clinical Notes Section Notes 10/09/2024 Hyperkalemia (ICD-10 - E87.5) Plan Of Treatment Next Appt Details Provider Name:Jordan Cyr ier, 05/21/2025 01:45:00 PM, [address], [address], [place], [place], [phone], Provider Name:Jordan Cyr ier, 11/15/2025 07:15:00 AM, [address], [address], [place], [phone], Provider Name:Jordan ward, 11/22/2025 10:30:00 AM, [address], [address], [place], [phone], Progress Notes * Anthony GOODMAN CDOB:1939 (85 yo M)Acc No.[id number]:10/09/2024 Progress Note Patient: Anthony GARCIA Provider: Emery Gabriel MD :1940 A ge:84 Y S ex:Male Date:10/09/2024 [facility] Subjective: * Chief Complaints: * 1 . [...] Pending * Provider: Emery Gabriel MD Date: 0 10/09/2024 Generated for Gautam oh/Isaac/Editting on: 05/17/2024 03:40 PM EST
--- OUTSIDE RECORDS SUMMARY | 2024-11-02 04:45 | XMS_ITS ---
Author Organization Jordan Gabriel MD Address [address] [place] [address] [phone] Care Team Providers Care Oracle Application Architect Name Role Phone Jordan Gabriel Primary Care [...] MG 1 tablet Orally BID Active Nystatin 631727 UNIT/GM 1 application Externally Twice a day [...] Diagnosis Jordan Gabriel MD 10 [facility] [address] [place] [address] [phone] 11/02/2024 Jordan Gabriel Gout attack M10.9 and Leg edema R60.0 Assessments Encounter Date Diagnosis (ICD Code) Assessment Notes Treatment Notes Treatment Clinical Notes Section Notes 11/02/2024 Gout attack (ICD-10 - M10.9) patient verbalized nderstanding of medication and directions for use 11/02/2024 Leg edema (ICD-10 - R60.0) being done today 11-02-2024 at 11am at [facility] , pending diagnostic testing Plan Of Treatment [...] being done today 10-23 at 11am at [facility] , pending diagnostic testing Pending Test Test Name Order Date US LEG LT VENOUS DOPPLER 11/02/2024 Next Appt Details Follow Up: 1 Week, Reason: Provider Name:Jordan ward, 05/21/2025 01:45:00 PM, [address] [place] [address], [address], [phone], Provider Name:Jordan ward, 11/15/2025 07:15:00 AM, [address] [place] [address], [address], [phone], Provider Name:Jordan ward, 11/22/2025 10:30:00 AM, [address] [place] [address], [address], [phone], Progress Notes * Anthony GOODMAN CDOB:1939 (84 yo M)Acc No.[id number]:11/02/2024 Progress Notes Patient: Anthony GARCIA Ina Provider: Emery Gabriel MD :1940 A ge:84 Y S ex:Male Date:11/02/2024 Address: [id number] Subjective: * Chief Complaints: * R FT [...] as needed Inhalation every 4 hrs Nystatin 350419 UNIT/GM Cream 1 application Externally Twice a [...] needed Inhalation every 4 hrs Taking Nystatin 210767 UNIT/GM Cream 1 application Externally Twice a [...] being done today 11-02-2024 at 11am at [facility] , pending diagnostic testing * Procedure Codes: * Follow Up: 1 Week * * Sign off status: Completed true * Provider: Emery Gabriel MD Date: 0 11/02/2024 Generated for Gautam oh/Isaac/Júniorsmitting on: 1 05/17/2024 03:39 PM EST History and Physical Notes * [...]
--- OUTSIDE RECORDS SUMMARY | 2024-11-09 06:45 | XMS_ITS ---
Author Organization Jordan Gabriel MD Address [address] [place] [address] [phone] Care Team Providers Care Gm/[employer]vp [employer] Publisher Business Name Role Phone Jordan Gabriel Primary Care [...] for 30 days 11/14/2017 Not-Guillermo ng Nystatin 850360 UNIT/GM 1 application Externally Twice a day for 14 days 04/28/2019 Active metFORMIN HCl 500 MG TAKE 1 TABLET BY [facility] TWICE A DAY WITH MEALS for 90 Active Albuterol Sulfate HFA 108 (90 Base) MCG/ACT 1 puff as needed Inhalation every 4 hrs 04/13/2022 Active Lisinopril 20 MG TAKE 1 TABLET BY [facility] EVERY DAY for 90 Active predniSONE 10 [...] kg/m2 11/09/2024 weight is down 2 pounds [facility] e 11-02-24 Encounters Encounter Location Date Provider Diagnosis Jordan Gabriel MD [address] [place] [address] [phone] 11/09/2024 Jordan Gabriel Gout attack M10.9 and [...] 6 Weeks, Reason: Provider Name:Jordan Cyr ier, 05/21/2025 01:45:00 PM, [address] [place] [address], [address] [place] [address], [phone], Provider Name:Jordan Cyr ier, 11/15/2025 07:15:00 AM, [address] [place] [address], [place] [address], [place], [place], [phone], Provider Name:Jordan Cyr ier, 11/22/2025 10:30:00 AM, [address] [place] [address], [address], [phone], Progress Notes * Anthony GOODMAN CDOB:1939 (84 yo M)Acc No.[id number]:11/09/2024 Patient: Anthony GARCIA Provider: Emery Gabriel MD :1940 A ge:84 Y S ex:Male Date:11/09/2024 Address:[address] [place], [place] [address] Subjective: * Chief Complaints: * 1 week * HPI: S ymptom(s): patient is a 84 yo male here for one week follow up visit/ took lasix and legas are b ack to normal. took the prednisone and the swelling started to go down. foot is better now. still on prednisone. * ROS: G eneral/Constitutional: Denies Ina hills. D enies F atigue. D enies F ever. D enies H eadache. E NT: Denies S ore throat. R espiratory: Denies Ina ough. D enies S hortness of breath [...] as needed Inhalation every 4 hrs Nystatin 374331 UNIT/GM Cream 1 application Externally Twice a [...] needed Inhalation every 4 hrs Taking Nystatin 972552 UNIT/GM Cream 1 application Externally Twice a [...] MD Date: 0 11/09/2024 Generated for Gautam oh/Isaac/Júniorsmitting on: 1 05/17/2024 03:40 PM EST History and Physical Notes * [...]
--- OUTSIDE RECORDS SUMMARY | 2024-11-10 03:00 | XMS_ITS ---
Author Organization Jordan Gabriel MD Address [address] [place] [phone] Care Team Providers Care Public Bath Attendant Name Role Phone Jordan Gabriel Primary Care Provider Results Component Value Reference Range Notes Complete Blood Count Auto Di ff Reviewed date:11/10/2024 04:43:39 PM Interpretation: Performing Lab:[facility], [address] [place] [phone] Notes/Report: White Blood Count 14.2 4.8-10.8 X10*3/uL [...] NRBC Abs Auto 0.000 0.0-0.012 X10*3/uL Comprehensive [place]. Panel Fa st Reviewed date:12/08/2024 12:40:38 PM Interpretation:12-08-2024 Performing Lab:[facility], [address] [place] [phone] Notes/Report: Sodium 136 135-145 mmol/L Potassium 4.7 [...] PROFILE Reviewed date:11/10/2024 12:58:08 PM Interpretation: Performing Lab:[facility], [address] [place] [phone] Notes/Report: Iron 49 45-160 mcg/dL Total Iron Binding Capacity 282 228-428 mcg/d L Percent Iron Saturation 17 15-50 % Unsaturated Iron Binding 233 Lipid Panel Reviewed date:11/10/2024 12:57:18 PM Interpretation: Performing Lab:[facility], [address] [place] [phone] Notes/Report: Triglycerides 81 <150 mg/dL Desirable Triglyceride: [...] (Free>4and<10) Reviewed date:11/10/2024 01:00:52 PM Interpretation: Performing Lab:[facility], [address] [place] [phone] Notes/Report: PSA,Total (Free>4and<10) 2.37 0.00-4.00 ng/mL A [...] Random Reviewed date:11/10/2024 04:33:57 PM Interpretation: Performing Lab:[address] [phone] Notes/Report: Creatinine Urine 44.71 Microalbumin Urine 9.0 Microalbum/Creatinine Ratio Ur 20.1 <30 ug/mg cr Albumin/Creatinine Ratio Reference Ranges: Normal: < 30 ug/mg creatinine Microalbuminuria: 30 - 300 ug/mg creatinine Clinical Albuminuria: > 300 ug/mg creatinine Hemoglobin A1c Reviewed date:11/10/2024 12:57:28 PM Interpretation: Performing Lab:[address] [phone] Notes/Report: Hemoglobin A1c % 6.5 <6.0 % [...] average glucose, using the formula of the K8N-Ajoavii Average Glucose study (ADAG), Diabetes Care, Vol.31,#8, Oct. 2007 UA ClnCatch+Micro w/rflx Cul t Reviewed date:11/11/2024 12:30:51 PM Interpretation: Performing Lab:[facility], [address] [place] [phone] Notes/Report: Urine, Clean Catch Color Urine Yellow Appearance Urine Clear PH 5.5 5.0-9.0 Glucose Urine UA Negative Negative mg/dL Urine Blood Negative Negative Specific [place] - Urine 1.010 1.005-1.025 Urine Protein Negative [...] Location Date Provider Diagnosis Jordan Gabriel MD [address] [place] [phone] 11/10/2024 Jordan Gabriel Type 2 diabetes mina [...] Treatment Next Appt Details Provider Name:Jordan ward, 05/21/2025 01:45:00 PM, [address] [place] [address], [address], [phone], Provider Name:Jordan ward, 11/15/2025 07:15:00 AM, [address] [place] [address], [address], [phone], Provider Name:Jordan ward, 11/22/2025 10:30:00 AM, [address] [place] [address], [address], [phone], Progress Notes * Anthony GOODMAN CDOB:1939 (85 yo M)Acc No.[id number]:11/10/2024 Progress Note Patient: Anthony GARCIA Provider: Emery Gabriel MD :1940 A ge:84 Y S ex:Male Date:11/10/2024 Address:[address] [id number] Subjective: * Chief Complaints: * 1 . [...] - 11/10/2024 08:00 AM) L AB: Comprehensive [place]. Panel Fast (Collection Date & Time - [...] - 11/10/2024 08:00 AM) L AB: Comprehensive [place]. Panel Fast (Collection Date & Time - [...] - 11/10/2024 08:00 AM) L AB: Comprehensive [place]. Panel Fast (Collection Date & Time - [...] - 11/10/2024 08:00 AM) L AB: Comprehensive [place]. Panel Fast (Collection Date & Time - [...] * Provider: Emery Gabriel MD Date: 0 11/10/2024 Generated for Gautam oh/Isaac/Editting on: 1 05/17/2024 03:41 PM EST
--- OUTSIDE RECORDS SUMMARY | 2024-11-17 05:30 | XMS_ITS ---
Author Organization Jordan Gabriel MD Address [address] [place] [phone] Care Team Providers Care Cardiac Catheterization Technician Name Role Phone Jordan Gabriel Primary Care Provider [phone] Allergies No Known Allergies Results Component Value Reference Range Notes XR foot RT 2V Reviewed date:11/17/2024 04:42:26 PM Interpretation: Performing Lab: Notes/Report: [address] [address] XRay Report Signed Patient: Anthony Goodman MR#: [id number] : 1940 Acct:[id number] Age/Sex: 84 / M ADM Date: 11/17/24 Loc: HO.XRAY Attending Dr: Jordan Gabriel MD Ordering Physician: Jordan Gabriel MD Date of Service: 11/17/24 Procedure(s): XR foot RT 2V Accession Number(s): [id number] cc: Jordan Gabriel MD EXAMINATION: XR FOOT [...] 11/17/24 1137 DD/ 1115 TD/TT: 11/17/24 1123 Chiropractic Care: [place] [address] XRay Report Signed Patient: Angelia Goodman Sr MR#: [id number] : 1940 Acct:[id number] Age/Sex: 84 / M ADM Date: 11/17/24 Loc: HO.XRBRADEN Attending Dr: Jordan Gabriel MD Ordering Physician: Jordan Gabriel MD Date of Service: 11/17/24 Procedure(s): XR foot RT 2V Accession Number(s): [id number] cc: Jordan Gabriel MD EXAMINATION: XR FOOT [...] 11/17/24 1137 DD/ 1115 TD/TT: 11/17/24 1123 Chiropractic Care: Reason For Referral Reason I48.0 Paroxysmal atr [...] Notes Start Date End Date Status Nystatin 892274 UNIT/GM 1 application Externally Twice a day [...] 500 MG TAKE 1 TABLET BY MO [facility] TWICE A DAY WITH MEALS [...] Location Date Provider Diagnosis Jordan Gabriel MD [address] [place] [address] [place] [phone] 11/17/2024 Jordan Gabriel Foot pain, right M79 [...] Follow Up: 3 Weeks, Reason: Provider Name:Jordan Cyr ier, 05/21/2025 01:45:00 PM, [address] [place] [address], [address] [place] [address], [phone], Provider Name:Jordan Cyr ier, 11/15/2025 07:15:00 AM, [address] [place] [address], [address], [phone], Provider Name:Jordan Cyr ier, 11/22/2025 10:30:00 AM, [address] [place] [address], [address] [place] [address], [phone], Progress Notes * Anthony GOODMAN CDOB:1939 (84 yo M)Acc No.[id number]:11/17/2024 Patient: Anthony GARCIA Provider: Emery Gabriel MD :1940 A ge:84 Y S ex:Male Date:11/17/2024 Address: [id number] Subjective: * Chief Complaints: * C OMP [...] spouse. Marital status: . 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 * Medications: T akingFreeStyle [...] as needed Inhalation every 4 hrs Nystatin 879758 UNIT/GM Cream 1 application Externally Twice a [...] needed Inhalation every 4 hrs Taking Nystatin 588644 UNIT/GM Cream 1 application Externally Twice a [...] mg/dL Urine Blood Negative Negative - Specific [place] - Urine 1.010 1.005-1.025 - Urine Protein [...] 0 11/17/2024 Generated for Gautam oh/Isaac/Júniorsmitting on: 1 05/17/2024 [...] had two or more falls in the year?: No Communication Needs Communication Needs Does [...] Date Referring Provider Referred Provider Not es 11/17/2024 Jordan Gabriel, Darryl I48.[address] Gabriel and Dr. Padilla spoke regarding patient's issue, was told Dr. Padilla office would be calling patient with an appt
--- OUTSIDE RECORDS SUMMARY | 2024-11-24 02:30 | XMS_ITS ---
Author Organization Jordan Gabriel MD Address [address] [place] [address] [phone] Care Team Providers Care Tyre Finisher And Examiner Name Role Phone Jordan Gabriel Primary Care Provider [phone] Results Component Value Reference Range Notes Blood Urea Nitrogen Reviewed date:11/24/2024 01:52:49 PM Interpretation: Performing Lab:[address] [phone] Notes/Report: Blood Urea Nitrogen 21 9-16 mg/dL Creatinine Reviewed date:11/24/2024 01:52:40 PM Interpretation: Performing Lab:[facility], [address] [place] [phone] Notes/Report: Creatinine 1.37 0.5-1.4 mg/dL Estimated Glomerular Filt Rate 50 Chronic Kidney Disease: Estimated GFR < 60 mL/min/1.73m2 Severe Kidney Disease: Estimated GFR < 15 mL/min/1.73m2 REASON FOR VISIT Bun and creatine Encounters Encounter Location Date Provider Diagnosis Jordan Gabriel MD [address] [place] [address] [phone] 11/24/2024 Jordan Gabriel Paroxysmal atrial fibrillation I48.0 Assessments Encounter Date Diagnosis (ICD Code) Assessment Notes Treatment Notes Treatment Clinical Notes Section Notes 11/24/2024 Paroxysmal atrial fibrillation (ICD-10 - I48.0) Plan Of Treatment Next Appt Details Provider Name:Jordan ward, 05/21/2025 01:45:00 PM, [address] [place] [address], [address], [phone], Provider Name:Jordan ward, 11/15/2025 07:15:00 AM, [address] [place] [address], [address], [phone], Provider Name:Jordan ward, 11/22/2025 10:30:00 AM, [address] [place] [address], [address], [phone], Progress Notes * Anthony GOODMAN CDOB:1939 (85 yo M)Acc No.[id number]:11/24/2024 Progress Note Patient: Anthony GARCIA Provider: Emery Gabriel MD :1940 A ge:84 Y S ex:Male Date:11/24/2024 Address: [address] [id number] Subjective: * Chief Complaints: * 1 . [...] 0 11/24/2024 Generated for Gautam oh/Isaac/Esequiel on: 1 05/17/2024 03:40 PM EST
--- OUTSIDE RECORDS SUMMARY | 2024-11-24 05:15 | XMS_ITS ---
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 Name Role Phone Jordan Gabriel Primary Care Provider REASON FOR VISIT HDF Immunizations Vaccine Route Administration Date Status Comme nts Influenza High Dose IM Intramuscular 11/24/2024 Administer ed Encounters Encounter Location Date Provider Diagnosis Jordan Gabriel MD [address] [place] [phone] 11/24/2024 Jordan Gabriel Encounter for administration of vaccine Z23 Assessments Encounter Date Diagnosis (ICD Code) Assessment Notes Treatment Notes Treatment Clinical Notes Section Notes 11/24/2024 Encounter for administration of vaccine (ICD-10 - Z23) Plan Of Treatment Next Appt Details Provider Name:Jordan Cyr ier, 05/21/2025 01:45:00 PM, [address], [address], [place], [place], [phone], Provider Name:Jordan Cyr ier, 11/15/2025 07:15:00 AM, [address], [address], [place], [phone], Provider Name:Jordan Cyr ier, 11/22/2025 10:30:00 AM, [address], [address], [place], [phone], Progress Notes * Anthony GOODMAN CDOB:1939 (85 yo M)Acc No.[id number]:11/24/2024 Progress Note Patient: Anthony GARCIA Provider: Emery Gabriel MD :1940 A ge:84 Y S ex:Male Date:11/24/2024 Address: [facility] Subjective: * Chief Complaints: * 1 . [...] MD Date: 0 11/24/2024 Generated for Gautam oh/Isaac/Editting on: 05/17/2024 03:40 PM EST
--- OUTSIDE RECORDS SUMMARY | 2024-12-08 04:15 | XMS_ITS ---
Author Organization Jordan Gabriel MD Address [address] [place] [phone] Care Team Providers Care Machine Boss Name Role Phone Jordan Gabriel Primary Care Provider Allergies No Known Allergies REASON FOR VISIT 3 weeks /lab, Accompanied by Medications Medication SIG (Take, Route, Frequency, Duration) Notes Start Date End Date Status Ferrous Sulfate 325 (65 Fe) MG 1 tablet Orally BID Active metFORMIN HCl 500 MG TAKE 1 TABLET BY MO UTH TWICE A DAY WITH MEALS Active Lisinopril 20 MG TAKE 1 TABLET BY JANETH TH EVERY DAY Active Albuterol Sulfate HFA 108 (90 Base) MCG/ACT 1 puff as needed Inhalation every 4 hrs 04/13/2022 Active predniSONE 10 MG 1 tablet with food o r milk Orally 4 tabs for 3 days,3tabs for 3 days, 2 tabs for 3 days, and 1 tab for 3 days for 14 days 07/24/2024 Not-Taking Metoprolol Succinate ER 25 MG 1 tablet Orally Once a day for 30 days 11/17/2024 Active Atorvastatin Calcium 80 MG 1 tablet Orally Once a day Active Furosemide 20 MG 1 tablet Orally Once a day for 30 day(s) 12/08/2024 Active Xarelto 20 MG 1 tablet with food Orally Once a day Active Nystatin 762010 UNIT/GM 1 application Externally Twice a day for 14 days 04/28/2019 Active Albuterol Sulfate HFA 108 (90 Base) MCG/ACT 1 puff as needed Inhalation every 4 hrs for 30 days 12/08/2024 Active Omeprazole 20 MG 1 capsule Orally Onc e a day Active Benadryl Allergy 25 MG 1 tablet as neede d Orally every 8 hrs Not-Taking FreeStyle Lite 0 as directed invitro DX: E 11.9 once a day for 30 days 01/17/2016 Active FreeStyle Lite Test 0 as directed In Vit ro DX: E 11.9 use tot test blood sugar once a day for 30 days 01/17/2016 Active Symbicort 160-4.5 MCG/ACT 2 puffs Inhala tion Twice a day for 30 days 11/14/2017 Not-Taki ng Ventolin HFA 108 (90 Base) MCG/ACT 2 puffs as needed Inhalation every 4 hrs Not-Takin g Problems Problem Type SNOMED Code ICD Code Onset Dates Problem Status W/U Status Risk Notes Problem Atrial fibrillation (49355825) Atrial fibrillation (I48.91) Active confirmed Vital Signs Blood pressure systolic 142 mm Hg 12/09/19 25 Blood pressure diastolic 60 mm Hg 025 Height 71 in 12/08/2024 Weight 203 lbs 12/08/2024 BMI 28.31 kg/m2 12/08/2024 weight is up 2 pounds since 11-17-24 Encounters Encounter Location Date Provider Diagnosis Jordan Gabriel MD [address] [place], [place] [phone] 12/08/2024 Jordan Gabriel Panlobular emphysema J43.1 ; Atrial fibrillation I48.91 and Edema R60.9 Assessments Encounter Date Diagnosis (ICD Code) Assessment Notes Treatment Notes Treatment Clinical Notes Section Notes 12/08/2024 Panlobular emphysema (ICD-10 - J43.1) patient verbalized undertstanding of medication and directions for use 12/08/2024 Atrial fibrillation (ICD-10 - I48.91) 12/08/2024 Edema (ICD-10 - R60.9) patient verbaized understanding of medication and directions for use, will continue to monitor Plan Of Treatment Medication Medication Name Sig Start Date Stop Date Notes Furosemide 20 MG 1 tablet Orally Once a day for 30 day(s) 12/08/2024 Xarelto 20 MG 1 tablet with food O rally Once a day Albuterol Sulfate HFA 108 (9 0 Base) MCG/ACT 1 puff as needed Inhalation every 4 hrs for 30 days 12/08/2024 Treatment Notes Assessment Notes Panlobular emphysema patient verbalized undertstanding of medication and directions for use Edema patient verbaized un derstanding of medication and directions for use, will continue to monitor Next Appt Details Follow Up: 3 Weeks, Reason: Provider Name:Jordan ward, 05/21/2025 01:45:00 PM, [address] [place] [address], [address], [phone], Provider Name:Jordan ward, 11/15/2025 07:15:00 AM, [address] [place] [address], [address], [phone], Provider Name:Jordan ward, 11/22/2025 10:30:00 AM, [address] [place] [address], [address], [phone], Progress Notes * Anthony GOODMAN CDOB:1939 (84 yo M)Acc No.[id number]:12/08/2024 Patient: Anthony GARCIA Provider: Emery Gabriel MD :1940 A ge:84 Y S ex:Male Date:12/08/2024 Address: [address] [id number] Subjective: * Chief Complaints: * 3 weeks /labAccompanied by * HPI: S ymptom(s): patient is a 84 yo male here for 3 week follow up visit/ still short of breath/ getting winded when playing his clarinet. * ROS: G eneral/Constitutional: Denies C hills. [...] pain with exertion. D enies D izziness. D enies P alpitations. A dmits S hortness of breath. G astrointestinal: Denies D iarrhea. D enies N ausea. * Medical History: * Surgical History: * Hospitalization/Major Diagno stic Procedure: * Medications: T akingFreeStyle Lite 0 Device as directed invitro DX: E 11.9 once a day FreeStyle Lite Test 0 Strip as directed In Vitro DX: E 11.9 use tot test blood sugar once a day Omeprazole 20 MG Capsule Delayed Release 1 capsule Orally Once a day Nystatin 263660 UNIT/GM Cream 1 application Externally Twice a day Metoprolol Succinate ER 25 MG Tablet Extended Release 24 Hour 1 tablet Orally Once a day Atorvastatin Calcium 80 MG Tablet 1 tablet Orally Once a day Ferrous Sulfate 325 (65 Fe) MG Tablet 1 tablet Orally BID Xarelto 20 MG Tablet 1 tablet with food Orally Once a day Albuterol Sulfate HFA 108 (90 Base) MCG/ACT Aerosol Solution 1 puff as needed Inhalation every 4 hrs metFORMIN HCl 500 MG Tablet TAKE 1 TABLET BY MOUTH TWICE A DAY WITH MEALS Lisinopril 20 MG Tablet TAKE 1 TABLET BY MOUTH EVERY DAY Taking FreeStyle Lite 0 Device as directed invitro DX: E 11.9 once a day Taking FreeStyle Lite Test 0 Strip as directed In Vitro DX: E 11.9 use tot test blood sugar once a day Taking Omeprazole 20 MG Capsule Delayed Release 1 capsule Orally Once a day Taking Nystatin 285675 UNIT/GM Cream 1 application Externally Twice a day Taking Metoprolol Succinate ER 25 MG Tablet Extended Release 24 Hour 1 tablet Orally Once a day Taking Atorvastatin Calcium 80 MG Tablet 1 tablet Orally Once a day Taking Ferrous Sulfate 325 (65 Fe) MG Tablet 1 tablet Orally BID Taking Xarelto 20 MG Tablet 1 tablet with food Orally Once a day Taking Albuterol Sulfate HFA 108 (90 Base) MCG/ACT Aerosol Solution 1 puff as needed Inhalation every 4 hrs Taking metFORMIN HCl 500 MG Tablet TAKE [...] Objective: * Vitals: H t: 71, Wt: 203, BMI:28.31, BP:142/60, Wt-k.08. weight is up 2 pounds since 11-17-24. * Examination: G eneral Examination: GENERAL APPEARANCE: a lert, well hydrated, in no distress.? HEAD: n ormocephalic. SKIN: g ood turgor. HEART: i rregularly irregular rhythm rate 90. LUNGS: n o wheezes, rales, rhonchi, good air movement, clear to auscultation bilaterally. EXTREMITIES: l eft leg with edema. Assessment: * Assessment: 1. P anlobular emphysema - J43.1 (Primary) 2 . A trial fibrillation - I48.91 3 . E arline - R60.9 Plan: * Treatment: 2. A trial fibrillation Continue Xarelto Tablet, 20 MG, 1 tablet with food, Orally, Once a day. 3. E arline Start Furosemide Tablet, 20 MG, 1 tablet, Orally, Once a day, 30 day(s), 30. Notes: patient verbaized understanding of medication and directions for use, will continue to monitor * Procedure Codes: * Follow Up: 3 Weeks * * Sign off status: Completed true * Provider: Emery Gabriel MD Date: 0 12/08/2024 Generated for Gautam oh/Isaac/Esequiel on: 1 05/17/2024 03:41 PM EST History and Physical Notes * HPI (History of Present Illness) Category Sub-Category Detail Notes Category Not es Symptom(s) patient is a 84 yo male here for 3 week follow up visit/ still short of breath/ getting winded when playing his clarinet Examination Category Sub-Category Detail Notes Category Not es General Examination GENERAL APPEARANCE: alert, w ell hydrated, in no distress HEAD: normocephalic HEART: irregularly irregula r rhythm rate 90 LUNGS: no wheezes, rales, r honchi, good air movement, clear to auscultation bilaterally SKIN: good turgor EXTREMITIES: left leg with edema
--- OUTSIDE RECORDS SUMMARY | 2025-01-05 08:45 | XMS_ITS ---
Author Organization Jordan Gabriel MD Address [address] [place] [phone] Care Team Providers Care Piano Accompanist Name Role Phone Jordan Gabriel Primary Care Provider Allergies No Known Allergies REASON FOR VISIT 3 week, Accompanied by Medications Medication SIG (Take, Route, Frequency, Duration) Notes Start Date End Date Status Atorvastatin Calcium 80 MG 1 tablet Orally Once a day Active Ferrous Sulfate 325 (65 Fe) MG 1 tablet Orally BID Active metFORMIN HCl 500 MG TAKE 1 TABLET BY [facility] TWICE A DAY WITH MEALS Active Omeprazole 20 MG 1 capsule Orally Onc e a day Active Metoprolol Succinate ER 25 MG 1 tablet Orally Once a day for 30 days 11/17/2024 Active Xarelto 20 MG 1 tablet with food Orally Once a day Active FreeStyle Lite 0 as directed invitro DX: E 11.9 once a day for 30 days 01/17/2016 Active FreeStyle Lite Test 0 as directed In Vit ro DX: E 11.9 use tot test blood sugar once a day for 30 days 01/17/2016 Active Symbicort 160-4.5 MCG/ACT 2 puffs Inhala tion twice a day for 30 days 01/05/2025 Active Furosemide 20 MG 1 tablet Orally Once a day for 90 days 12/08/2024 Active Benadryl Allergy 25 MG 1 tablet as neede d Orally every 8 hrs Not-Taking Albuterol Sulfate HFA 108 (90 Base) MCG/ACT 1 puff as needed Inhalation every 4 hrs 04/13/2022 Active Lisinopril 20 MG TAKE 1 TABLET BY JANETH TH EVERY DAY Active Albuterol Sulfate HFA 108 (90 Base) MCG/ACT 1 puff as needed Inhalation every 4 hrs 12/08/2024 Active Symbicort 160-4.5 MCG/ACT 2 puffs Inhala tion Twice a day for 30 days 11/14/2017 Not-Taki ng Nystatin 307277 UNIT/GM APPLY DAILY TO S KIN TO AFFECTED AREA TWICE A DAY FOR 2 WEEKS for 15 Active predniSONE 10 MG 1 tablet with food o r milk Orally 4 tabs for 3 days,3tabs for 3 days, 2 tabs for 3 days, and 1 tab for 3 days for 14 days 07/24/2024 Not-Taking Ventolin HFA 108 (90 Base) MCG/ACT 2 puffs as needed Inhalation every 4 hrs Not-Takin g Vital Signs Blood pressure systolic 138 mm Hg 01/06/20 25 Blood pressure diastolic 42 mm Hg 025 Heart Rate 60 /min 01/05/2025 Height 71 in 01/05/2025 Weight 208 lbs 01/05/2025 BMI 29.01 kg/m2 01/05/2025 weight is up 5 pounds since 12-08-24 Encounters Encounter Location Date Provider Diagnosis Jordan Gabriel MD [address] [facility] [address] [place], [place] [phone] 01/05/2025 Jordan Gabriel Paroxysmal atrial fibrillation I48.0 ; Essential hypertension I10 ; COPD (chronic obstructive pulmonary disease) with acute bronchitis J44.0 and Edema R60.9 Assessments Encounter Date Diagnosis (ICD Code) Assessment Notes Treatment Notes Treatment Clinical Notes Section Notes 01/05/2025 Paroxysmal atrial fibrillation (ICD-10 - I48.0) has had a recent holter. is going to see dr joycelyn chi, will continue current regiment 01/05/2025 Essential hypertension (ICD-10 - I10) well controlled at present, will continue current regiment 01/05/2025 COPD (chronic obstructive pulmonary disease) with acute bronchitis (ICD-10 - J44.0) stable, will continue current regiment 01/05/2025 Edema (ICD-10 - R60.9) will continue current regiment Plan Of Treatment Medication Medication Name Sig Start Date Stop Date Notes Xarelto 20 MG 1 tablet with food O rally Once a day Symbicort 160-4.5 MCG/ACT 2 puffs Inhala tion twice a day for 30 days 01/05/2025 Furosemide 20 MG 1 tablet Orally Once a day for 90 days 12/08/2024 Albuterol Sulfate HFA 108 (9 0 Base) MCG/ACT 1 puff as needed Inhalation every 4 hrs 04/13/2022 Lisinopril 20 MG TAKE 1 TABLET BY JANETH TH EVERY DAY Albuterol Sulfate HFA 108 (9 0 Base) MCG/ACT 1 puff as needed Inhalation every 4 hrs 12/08/2024 Treatment Notes Assessment Notes Paroxysmal atrial fibrillation has had a recent holter. is going to see dr joycelyn chi, will continue current regiment Essential hypertension well controlled a t present, will continue current regiment COPD (chronic obstructive pu lmonary disease) with acute bronchitis stable, will continue current regiment Edema will continue curren t regiment Next Appt Details Follow Up: 2 Months, Reason: Provider Name:Jordan ward, 05/21/2025 01:45:00 PM, [address] [place] [address], [address], [place], [phone], Provider Name:Jordan ward, 11/15/2025 07:15:00 AM, [address] [place] [address], [address], [place], [phone], Provider Name:Jordan ward, 11/22/2025 10:30:00 AM, [address], [address], [place], [place], [phone], Progress Notes * Anthony GOODMAN CDOB:1939 (84 yo M)Acc No.[id number]:01/05/2025 Progress Notes Patient: Anthony GARCIA Provider: Emery Gabriel MD :1940 A ge:84 Y S ex:Male Date:01/05/2025 [facility] [address] [facility] Subjective: * Chief Complaints: * 3 weekAccompanied by * HPI: S ymptom(s): patient is a 84 yo male here for 3 week follow up visit/ still sob with exertion. not all the time. * ROS: G eneral/Constitutional: Denies C hills. [...] exertion. D enies D izziness. A dmits P alpitations. A dmits S hortness of [...] Release 1 capsule Orally Once a day Metoprolol Succinate ER 25 MG Tablet Extended Release 24 Hour 1 tablet Orally Once a day Atorvastatin Calcium 80 MG Tablet 1 tablet Orally Once a day Ferrous Sulfate 325 (65 Fe) MG Tablet 1 tablet Orally BID Albuterol Sulfate HFA 108 (90 Base) MCG/ACT Aerosol Solution 1 puff as needed Inhalation every 4 hrs metFORMIN HCl 500 MG Tablet TAKE 1 TABLET BY MOUTH TWICE A DAY WITH MEALS Lisinopril 20 MG Tablet TAKE 1 TABLET BY MOUTH EVERY DAY Albuterol Sulfate HFA 108 (90 Base) MCG/ACT Aerosol Solution 1 puff as needed Inhalation every 4 hrs Furosemide 40 MG Tablet 0.5 tab Orally Once a day Xarelto 20 MG Tablet 1 tablet with food Orally Once a day Nystatin 765444 UNIT/GM Cream APPLY DAILY TO SKIN TO AFFECTED AREA TWICE A DAY FOR 2 WEEKS Taking FreeStyle Lite 0 Device as directed invitro DX: E 11.9 once a day Taking FreeStyle Lite Test 0 Strip as directed In Vitro DX: E 11.9 use tot test blood sugar once a day Taking Omeprazole 20 MG Capsule Delayed Release 1 capsule Orally Once a day Taking Metoprolol Succinate ER 25 MG Tablet Extended Release 24 Hour 1 tablet Orally Once a day Taking Atorvastatin Calcium 80 MG Tablet 1 tablet Orally Once a day Taking Ferrous Sulfate 325 (65 Fe) MG Tablet 1 tablet Orally BID Taking Albuterol Sulfate HFA 108 (90 Base) MCG/ACT Aerosol Solution 1 puff as needed Inhalation every 4 hrs Taking metFORMIN HCl 500 MG Tablet TAKE 1 TABLET BY MOUTH TWICE A DAY WITH MEALS Taking Lisinopril 20 MG Tablet TAKE 1 TABLET BY MOUTH EVERY DAY Taking Albuterol Sulfate HFA 108 (90 Base) MCG/ACT Aerosol Solution 1 puff as needed Inhalation every 4 hrs Taking Furosemide 40 MG Tablet 0.5 tab Orally Once a day Taking Xarelto 20 MG Tablet 1 tablet with food Orally Once a day Taking Nystatin 520250 UNIT/GM Cream APPLY DAILY TO SKIN TO AFFECTED AREA TWICE A DAY FOR 2 WEEKS Not- Taking/PRNpredniSONE 10 MG Tablet 1 tablet with food [...] Medication List reviewed and reconciled with the patientNot- Taking/PRN predniSONE 10 MG Tablet 1 tablet with [...] Objective: * Vitals: H t: 71, Wt: 208, BMI:29.01, BP:138/42, HR:60, Wt-k.35. weight is up 5 pounds since 12-08-24. * Examination: G eneral Examination: GENERAL APPEARANCE: p leasant, in no acute distress. HEAD: n ormocephalic. SKIN: g ood turgor. HEART: r egular rate and rhythm, no murmurs, rubs, gallops.? LUNGS: n o wheezes, rales, rhonchi, good air movement, clear to auscultation bilaterally. Assessment: * Assessment: 1. P aroxysmal atrial fibrillation - I48.0 (Primary) 2 . E ssential hypertension - I10 3 . C OPD (chronic obstructive pulmonary disease) with acute bronchitis - J44.0 4 . E arline - R60.9 Plan: * Treatment: 2. E ssential hypertension Continue Lisinopril Tablet, 20 MG, TAKE 1 TABLET BY MOUTH EVERY DAY. Notes: well controlled at present, will continue current regiment 3. C OPD (chronic obstructive pulmonary disease) with acute bronchitis Start Symbicort Aerosol, 160-4.5 MCG/ACT, 2 puffs, Inhalation, twice a day, 30 days, 1, Refills 11;?Continue Albuterol Sulfate HFA Aerosol Solution, 108 (90 Base) MCG/ACT, 1 puff as needed, Inhalation, every 4 hrs; C ontinue Albuterol Sulfate HFA Aerosol Solution, 108 (90 Base) MCG/ACT, 1 puff as needed, Inhalation, every 4 hrs. Notes: stable, will continue current regiment 4. E arline Notes: will continue current regiment * Procedure Codes: G 2211 Complex e/m visit add on * Follow Up: 2 Months * * Sign off status: Completed true * Provider: Emery Gabriel MD Date: Generated for Gautam oh/Isaac/Esequiel on: 05/17/2024 03:39 PM EST History and Physical Notes * HPI (History of Present Illness) Category Sub-Category Detail Notes Category Not es Symptom(s) patient is a 84 yo male here for 3 week follow up visit/ still sob with exertion. not all the time. Examination Category Sub-Category Detail Notes Category Not es General Examination GENERAL APPEARANCE: pleasant, in n o acute distress HEAD: normocephalic HEART: regular rate and rhy thm, no murmurs, rubs, gallops LUNGS: no wheezes, rales, r honchi, good air movement, clear to auscultation bilaterally SKIN: good turgor
--- OUTSIDE RECORDS SUMMARY | 2025-03-09 10:00 | XMS_ITS ---
Author Organization Jordan Gabriel MD Address [address] [place] [phone] Care Team Providers Care Electronic Device Monitor Name Role Phone Jordan Gabriel Primary Care Provider [phone] Allergies No Known Allergies REASON FOR VISIT 2 month, Accompanied by Medications Medication SIG (Take, Route, Frequency, Duration) Notes Start Date End Date Status Symbicort 160-4.5 MCG/ACT 2 puffs Inhala tion twice a day for 30 days 01/05/2025 Active Nystatin 858293 UNIT/GM APPLY DAILY TO S KIN TO AFFECTED AREA TWICE A DAY FOR 2 WEEKS for 15 Active Albuterol Sulfate HFA 108 (90 Base) MCG/ACT 1 puff as needed Inhalation every 4 hrs 12/08/2024 Active Furosemide 20 MG 1 tablet Orally Once a day for 90 days 12/08/2024 Active Ferrous Sulfate 325 (65 Fe) MG [...] a day for 30 days 01/17/2016 Active Amiodarone HCl 200 MG 1 tablet Orally On ce a day Active Ventolin HFA 108 (90 Base) MCG/ACT 2 puffs as needed Inhalation every 4 hrs Not-Owen g Benadryl Allergy 25 MG 1 tablet as neede d Orally every 8 hrs Not-Taking Symbicort 160-4.5 MCG/ACT 2 puffs Inhala tion Twice a day for 30 days 11/14/2017 Not-Taki ng Farxiga 5 MG 1 tablet Orally Once a day [...] BY JANETH EVERY DAY for 90 Active Vital Signs Blood pressure systolic 152 mm Hg 03/09/20 25 Blood pressure diastolic 48 mm Hg 025 Height 71 in 03/09/2025 Weight 198 lbs 03/09/2025 BMI 27.61 kg/m2 03/09/2025 weight is down 10 pounds sin 01-05-25 Encounters Encounter Location Date Provider Diagnosis Jordan Gabriel MD [address] [place] [address] [place] [id number] 03/09/2025 Jordan Gabriel Blue nevus D22.9 ; Atrial fibrillation I48.91 and Essential hypertension I10 Assessments Encounter Date Diagnosis (ICD Code) Assessment Notes Treatment Notes Treatment Clinical Notes Section Notes 03/09/2025 Blue nevus (ICD-10 - D22.9) no need for any treatment 03/09/2025 Atrial fibrillation (ICD-10 - I48.91) had cardioversion and didn't work and is going to see about ablation 03/09/2025 Essential hypertension (ICD-10 - I10) Plan Of Treatment Treatment Notes Assessment Notes Blue nevus no need for any mynor tment Atrial fibrillation had cardioversion an d didn't work and is going to see about ablation Next Appt Details Follow Up: 3 Months, Reason: Provider Name:Jordan Cyr ier, 05/21/2025 01:45:00 PM, [address] [place] [address], [address] [place] [address], [phone], Provider Name:Jordan Cyr ier, 11/15/2025 07:15:00 AM, [address] [place] [address], [address] [place] [address], [phone], Provider Name:Jordan Cyr ier, 11/22/2025 10:30:00 AM, [address] [place] [address], Suite [facility], [place], [place], [phone], Progress Notes * KENYAnthony AYERS CDOB:1939 (85 yo M)Acc No.[id number]:03/09/2025 Progress Notes Patient: Anthony GARCIA Provider: Emery Gabriel MD :1940 A ge:85 Y S ex:Male Date:03/09/2025 [id number] Subjective: * Chief Complaints: * 2 monthAccompanied by * HPI: S ymptom(s): patient is a 85 yo male here for 2 month follow up visit/ had stress test and echo and cardioversion which failed. * ROS: G eneral/Constitutional: Denies C hills. [...] enies D izziness. D enies P alpitations. D enies S hortness of breath. G astrointestinal: Denies D iarrhea. D enies N ausea. * Medical History: * Surgical History: * Hospitalization/Major Diagno stic Procedure: * Medications: T akingAmiodarone HCl 200 MG Tablet 1 tablet Orally Once a day Farxiga 5 MG Tablet 1 tablet Orally Once a day FreeStyle Lite 0 Device as directed invitro DX: E 11.9 once a day FreeStyle Lite Test 0 Strip as directed In Vitro DX: E 11.9 use tot test blood sugar once a day Omeprazole 20 MG Capsule Delayed Release 1 capsule Orally Once a day Atorvastatin Calcium 80 MG Tablet 1 tablet Orally Once a day Ferrous Sulfate 325 (65 Fe) MG Tablet 1 tablet Orally BID Nystatin 893721 UNIT/GM Cream APPLY DAILY TO SKIN TO AFFECTED AREA TWICE A DAY FOR 2 WEEKS Symbicort 160-4.5 MCG/ACT Aerosol 2 puffs Inhalation twice a day Furosemide 20 MG Tablet 1 tablet Orally Once a day Albuterol Sulfate HFA 108 (90 Base) MCG/ACT Aerosol Solution 1 puff as needed Inhalation every 4 hrs Xarelto 20 MG Tablet 1 tablet with food Orally Once a day metFORMIN HCl 500 MG Tablet TAKE 1 TABLET BY MOUTH TWICE A DAY WITH MEALS Lisinopril 20 MG Tablet TAKE 1 TABLET BY MOUTH EVERY DAY Taking Amiodarone HCl 200 MG Tablet 1 tablet Orally Once a day Taking Farxiga 5 MG Tablet 1 tablet Orally Once a day Taking FreeStyle Lite 0 Device as directed invitro DX: E 11.9 once a day Taking FreeStyle Lite Test 0 Strip as directed In Vitro DX: E 11.9 use tot test blood sugar once a day Taking Omeprazole 20 MG Capsule Delayed Release 1 capsule Orally Once a day Taking Atorvastatin Calcium 80 MG Tablet 1 tablet Orally Once a day Taking Ferrous Sulfate 325 (65 Fe) MG Tablet 1 tablet Orally BID Taking Nystatin 568022 UNIT/GM Cream APPLY DAILY TO SKIN TO AFFECTED AREA TWICE A DAY FOR 2 WEEKS Taking Symbicort 160-4.5 MCG/ACT Aerosol 2 puffs Inhalation twice a day Taking Furosemide 20 MG Tablet 1 tablet Orally Once a day Taking Albuterol Sulfate HFA 108 (90 Base) MCG/ACT Aerosol Solution 1 puff as needed Inhalation every 4 hrs Taking Xarelto 20 MG Tablet 1 tablet with food Orally Once a day Taking metFORMIN HCl 500 MG [...] tablet as needed Orally every 8 hrs DiscontinuedMetoprolol Succinate ER 25 MG Tablet Extended Release 24 Hour 1 tablet Orally Once a day Medication List reviewed and reconciled with the patientDiscontinued Metoprolol Succinate ER 25 MG Tablet Extended Release 24 Hour 1 tablet Orally Once a day Medication List reviewed and reconciled with the patient * Allergies: N .K.D.A.yes[Allergies Verified] Objective: * Vitals: H t: 71, Wt: 198, BMI:27.61, BP:152/48, Wt-k.81. weight is down 10 pounds since 01-05-25. * Examination: G eneral Examination: GENERAL APPEARANCE: a lert, well hydrated, in no distress.? HEAD: a bnormal 1/4 inch blue nevus present for years. SKIN: g ood turgor. HEART: i rregularly irregular rhythm. LUNGS: n o wheezes, rales, rhonchi, good air movement, clear to auscultation bilaterally. EXTREMITIES: 1 + pitting edema lower extremities. ? Assessment: * Assessment: 1. B lue nevus - D22.9 (Primary) 2 . A trial fibrillation - I48.91 ? 3 . E ssential hypertension - I10 Plan: * Treatment: 2. A trial fibrillation Notes: had cardioversion and didn't work and is going to see about ablation * Procedure Codes: * Follow Up: 3 Months * * Sign off status: Completed true * Provider: Emery Gabriel MD Date: 1 05/10/2024 Generated for Gautam oh/Isaac/Júniorsmitting on: 05/17/2024 03:39 PM EST History and Physical Notes * HPI (History of Present Illness) Category Sub-Category Detail Notes Category Not es Symptom(s) patient is a 85 yo male here for 2 month follow up visit/ had stress test and echo and cardioversion which failed Examination Category Sub-Category Detail Notes Category Not es General Examination GENERAL APPEARANCE: alert, w ell hydrated, in no distress HEAD: abnormal 1/4 inch bl ue nevus present for years HEART: irregularly irregula r rhythm LUNGS: no wheezes, rales, r honchi, good air movement, clear to auscultation bilaterally SKIN: good turgor EXTREMITIES: 1+ pitting edema low er extremities
--- NOTE | 2025-03-16 14:30 | MHC.OFFVIS ---
Vital Signs 03/16/25 14:31 Height 6 ft 1 in Weight 197 lb 8.547 oz BMI 26.1 BP 130/52 L Blood Pressure Location Lt brachial Position Sitting Pulse 61 Pulse Source Monitor Intake Visit Reasons: s/p cardioversion Core Paster Required: No Bottled Beverage Inspector: Bottled Beverage Inspector Present Allergies No Known Allergies Allergy (Verified 03/16/25 14:36) Medication List - Last Reconciled 03/16/25 by SLIME Devlin amiodarone 200 mg PO DAILY 90 days atorvastatin 80 mg PO DAILY budesonide-formoterol 160-4.5 mcg/actuation (Symbicort) 2 puffs inhalation BID calcium carbonate-vitamin D3 600 mg-5 mcg (200 unit) 1 tab PO BID cholecalciferol (vitamin D3) (Vitamin D3) 50 mcg PO DAILY cyanocobalamin (vitamin B-12) (Vitamin B-12) 1,000 mcg PO DAILY dapagliflozin propanediol (Farxiga) 5 mg PO DAILY ferrous sulfate (Feosol) 325 mg PO DAILY furosemide (Lasix) 20 mg PO DAILY lisinopril 20 mg PO DAILY metformin 500 mg PO BID multivitamin 1 tab PO DAILY omeprazole 20 mg PO BEDTIME rivaroxaban (Xarelto) 15 mg PO DAILY HPI HPI s/p cardioversion: Details: The patient is an 85-year-old male presenting for follow-up of persistent atrial fibrillation. He was recently started on amiodarone, his metoprolol was discontinued, and he underwent a cardioversion with Dr. Padilla on 03/02/2025, which successfully converted him to sinus rhythm after two attempts. The patient previously experienced exertional shortness of breath but could not subjectively tell when he was in atrial fibrillation. Since the cardioversion, he has noticed improvement, with no shortness of breath while climbing stairs or playing music, activities that previously caused symptoms. A cardiac workup includes a pharmacological nuclear stress test on 02/17/2025, which showed normal myocardial perfusion, and an echocardiogram on 01/25/2025, which revealed an ejection fraction of 61%, a moderately dilated left atrium, a moderate increase in right ventricular cavity size, and an ascending aorta measuring 4 cm. He has a history of a Maze procedure for atrial fibrillation. The patient has a history of chronic kidney impairment, with labs from 03/11/2025 showing a creatinine of 1.86. Due to his renal function, his Xarelto dose was reduced from 20 mg to 15 mg daily. His current medications include amiodarone, atorvastatin, Lasix, lisinopril, and low-dose Xarelto. is present. [facility] Medical History Persistent atrial fibrillation Atrial fibrillation and flutter Arthritis Hiatal hernia COVID-19 On anticoagulant therapy History of blood transfusion Severe sepsis Gallstone pancreatitis GARTH (acute kidney injury) PVD (peripheral vascular disease) History of cancer COPD (chronic obstructive pulmonary disease) GERD (gastroesophageal reflux disease) Hyperlipidemia Diabetes mellitus HTN (hypertension) Paroxysmal atrial fibrillation CAD (coronary artery disease) Surgical History History of surgery on wrist Hx of spinal surgery History of esophagogastroduodenoscopy (EGD) H/O colonoscopy H/O excision of mass History of excision of lesion History of laparoscopic cholecystectomy History of arthroplasty of left hip History of lobectomy of lung H/O heart surgery Social History Household Members: Spouse Housing: House Are you a primary primary care nurse practitioner to a significant other at home: No Do you presently have visiting nurse or other home services: No Alcohol intake: former Patient Tobacco Use Status: Former Tobacco user Tobacco use type: Cigarette Cigarette Packs Per Day: 1 service: Yes 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 Review of Systems Const All systems reviewed & are unremarkable except as noted in HPI and below ENT Denies dizziness Card Denies chest pain, Denies chest pain at rest, Denies chest pain with activity, Denies rapid heart rate, Denies pedal edema, Denies edema, Denies leg edema, Denies lightheadedness, Denies palpitations, Denies dyspnea, Reports dyspnea on exertion and Denies orthopnea Resp Denies cough, Denies dyspnea and Reports dyspnea on exertion GI Denies hematochezia and Denies change in stool character Musc Denies abnormal gait, Denies limited range of motion, Denies muscle cramps, Denies muscle weakness, Denies numbness, Denies radiating pain into limb, Denies stiffness and Denies tingling Neuro Denies abnormal gait, Denies dizziness, Denies numbness and Denies tingling Endo Denies palpitations Physical Exam Vital Signs: Last Vital Signs Pulse 61 03/16/25 14:31 BP 130/52 L 03/16/25 14:31 BMI result Body Mass Index 26.1 Const General: cooperative, healthy appearing, comfortable and no acute distress Orientation/consciousness: patient oriented x3 Neck Neck: Yes normal visual inspection Resp Effort & Inspection: normal respiratory effort Auscultation: clear to auscultation bilaterally, no rales, no rhonchi and no wheezes Cardio Rate: regular rate Rhythm: regular rhythm Heart sounds: S1 normal heart sound present, S2 normal heart sound present, no gallops, no murmurs and no rubs Neuro General: patient oriented x3 Extrem General: Yes normal to inspection, No no pedal edema and No calf tenderness Psych Appearance: grossly normal Mental Status: mental status grossly normal Speech and movement: Normal speech and movement present Office Procedures EKG Details: Today, read by me, sinus rhythm with small P waves, one PAC, rate 61, Qtc 465ms [id number], Complete Assessment & Plan Assessment & Plan (1) Persistent atrial fibrillation: Code(s): I48.19 - Other persistent atrial fibrillation Category: Medical Plan: History of persistent atrial fibrillation. Recently put on amiodarone and underwent successful cardioversion 03/02/2025. EKG today is showing sinus rhythm with small P waves, 1 Pac, rate 61. Breathing improved post cardioversion. Continue amiodarone for rhythm control. Continue low-dose Xarelto for anticoagulation. Will check labs in a few weeks to check tolerance of amiodarone and kidney function. No med changes made at this time. Cardiology follow-up 4 months, sooner if needed. If he does have recurrent AFib on amiodarone then EP referral for ablation will be considered. (2) CAD (coronary artery disease): Code(s): I25.10 - Atherosclerotic heart disease of [place] coronary artery without angina pectoris Category: Medical Plan: History of CAD with prior coronary artery bypass grafting. Maze procedure at that time. Condition stable with no anginal symptoms. Recent echo showing normal EF and no regional wall motion abnormalities. Nuclear stress test 02/17/2025 was likely normal. Continue risk factor modification. He is not on aspirin as he is on Xarelto. He is on high-dose atorvastatin with ideal LDL goal less than 70. He is no longer on metoprolol due to the addition of amiodarone. (3) HTN (hypertension): Code(s): I10 - Essential (primary) hypertension Category: Medical Plan: Blood pressure goal less than 130/80. Controlled today. No med changes made. (4) Hyperlipidemia: Code(s): E78.5 - Hyperlipidemia, unspecified Category: Medical Plan: [place] LDL goal less than 70. Labs done 11/10/2024 showed LDL 53. Continue atorvastatin Plan I shared the positive news that his EKG today showed he is in normal sinus rhythm, and he seems to be feeling better with less shortness of breath. I explained that amiodarone is a rhythm control medication and appears to be working effectively. I also explained that his Xarelto dose was reduced because his kidneys process the medication more slowly, so a lower dose is safer and sufficient. We reviewed his normal stress test and echocardiogram results, which show his heart is pumping strongly. I discussed that if his atrial fibrillation returns, the next step would be a referral for a possible cardiac ablation, a procedure to block abnormal electrical pathways in the heart. We talked about his prior Maze procedure and the uncertainty of how it might affect a future ablation. I recommended he continue his current medications and informed him that I am ordering blood work to be done in 2-3 weeks to monitor his kidney function and his tolerance of amiodarone. Orders: Orders Comprehensive Met. Panel Today I48.19 - Other persistent atrial fibrillation TSH reflex Free T4 Today I48.19 - Other persistent atrial fibrillation Patient Instructions: - Continue to take your current medications as prescribed, including amiodarone and the lower dose of Xarelto. - Please have blood tests done in the next 2 to 3 weeks. - We will schedule a follow-up appointment for you with Dr. Padilla. - If you have any questions, you can call the office. Patient was informed and verbally consented to the use of an ambient scribe for clinic note documentation during this visit. Visit time spent on chart review, interview, assessment, orders, documentation. Coding Level of Care Code Est Pt Level 4 (69992) Add On Problem Visit Only Diagnoses Persistent atrial fibrillation I48.19 CAD (coronary artery disease) I25.10 HTN (hypertension) I10 Hyperlipidemia E78.5 CPT Codes EKG - CPT: 64005-[id number], Complete ([id number]) Time Spent (min) 30
[2025-03-16 14:31] VITALS: BP 130/52; PULSE 61; BMI 26.1
--- OUTSIDE RECORDS SUMMARY | 2025-03-16 15:40 | XMS_ITS | Patient Health Record ---
Author Organization [facility] Address [address] [place] [address] Care Team Providers Care Cancer Registry Manager Name Role Phone Jordan Gabriel MD Primary Care Provider Patito Carpenter Unavailable [phone] Allergies No Known Allergies Results Component Value Reference Range Flag Notes Glucose, Whole Blood Reviewed date:07/25/2024 10:07:32 PM Interpretation: Performing Lab:[facility], [address] [place] [id number] Notes/Report: Glucose, Whole Blood 101 60-115 mg/dL N [facility] #: [id number] Reason For Referral No Information Medications Medication [...] Problem Screening for malignant neoplasm of colon (670747671) Encounter for screening for malignant neoplasm of colon (Z12.11) Active confirmed Problem History of adenomatous polyp of colon (265763109) History of adenomatous polyp of colon (Z86.010) Active confirmed Problem Screening for malignant neoplasm of rectum (272621828) Encounter for screening for malignant neoplasm of rectum (Z12.12) Active confirmed Problem Dysphagia (67028848) Dysphagia (R13.10) Active confirmed Problem Iron deficiency anemia (61105465) Iron deficiency anemia (D50.9) Active confirmed Problem Gastric polyp (81475667) Gastric polyp (K31.7) Active confirmed Problem History of polyp of colon (situation) (768778926) Hx of colonic polyps (Z86.010) Active confirmed Problem Long-term current use of anticoagulant (415817511) Long-term (current) use of anticoagulants (Z79.01) Active confirmed Problem Iron deficiency anemia (37867721) Iron deficiency anemia, unspecified iron deficiency anemia type (D50.9) Active confirmed Problem Stricture of esophagus (80746673) History of esophageal stricture (Z87.19) Active confirmed Problem Esophageal reflux finding (376592664) Gastroesophageal reflux (K21.9) Active confirmed Problem Diverticulosis of sigmoid colon (817837390) Diverticulosis of sigmoid colon (K57.30) Active confirmed [...] N/A Encounters Encounter Location Date Provider Diagnosis [facility] [place] [facility] [address], [place] [phone] 07/23/2024 Patito Andrews Esophageal stricture K22.2 and Hiatal hernia K44.9 [facility] [address] [place] [phone] 07/01/2024 Patito Andrews Dysphagia R13.10 ; History of esophageal stricture Z87.19 and Gastroesophageal reflux K21.9 [facility] [address] [place] [phone] 06/01/2024 Patito Andrews [facility] [address] [place] [phone] 07/23/2024 Patito Andrews Assessments Encounter Date Diagnosis [...] [place] [address] [place] [address] [id number] PATITO BUSTILLO Self - patient is the insured [employer] CLAIM[employer] [address] [place] [address] [phone] [id number] PATITO BUSTILLO Self - patient is the insured Medical (General) History Medical History History ICD Code Larger tubular adenoma with dysplasia re moved in 11/2008 from [facility] Colonoscopy 07-06-2009--small tubular cristina nomas Hyperlipidemia EGD in 11/2008 with a small HH and gastri tis-neg. H. pylori COPD/pneumonia Denies RI,CVA,renal disease HTN Asymptomatic gallstones-this had been reviewed with him on his previous office visit in August,---he had subsequent gallstone pancreatitis and cholecystectomy as below Upper endoscopy in August with a finding of a fibrotic distal esophageal stricture that was dilated successfully with balloons Colonoscopy in August of 2012 with removal of small tubular adenomas Atrial flutter/Atrial fib--sees Dr. Hazel watters [facility] [place] 06/2016-small tubular adenoma s Gallstone pancreatitis [...]
--- OUTSIDE RECORDS SUMMARY | 2025-03-16 15:41 | XMS_ITS | Patient Health Record ---
Author Organization Jordan Gabriel MD Address [address] [place] [phone] Care Team Providers Care Coremaker Experimental Name Role Phone Jordan Gabriel Primary Care Provider Allergies No Known Allergies Results Component Value Reference Range Notes Liver Panel Reviewed date:05/12/2024 04:52:54 PM Interpretation: Performing Lab:[facility], [address] [place] [phone] Notes/Report: Bilirubin Total 0.5 0.0-1.0 mg/dL Bilirubin Direct 0.2 0.0-0.5 mg/dL Aspartate Amino Transferase 28 5-37 U/L Alanine Aminotransferase 18 0-40 U/L Total Protein 7.1 6.5-8.0 g/dL Albumin Level 4.0 3.5-5.0 g/dL Alkaline Phosphatase 72 39-117 U/L Glucose Fasting Reviewed date:05/12/2024 04:53:04 PM Interpretation: Performing Lab:[facility], [address] [place] [phone] Notes/Report: Glucose Fasting 95 60-99 mg/dL Lipid Panel with Reflex Reviewed date:05/12/2024 04:53:13 PM Interpretation: Performing Lab:[facility], [address] [place] [phone] Notes/Report: Triglycerides 71 <150 mg/dL Desirable Triglyceride: [...] A1c Reviewed date:05/12/2024 12:07:37 PM Interpretation: Performing Lab:[facility], [address] [place] [phone] Notes/Report: Hemoglobin A1c % 6.0 <6.0 % [...] average glucose, using the formula of the J7E-Zcurgwb Average Glucose study (ADAG), Diabetes Care, Vol.31,#8, 2007 Potassium Reviewed date:10/09/2024 12:34:47 PM Interpretation: Performing Lab:[facility], [address] [place] [phone] Notes/Report: Potassium 5.0 3.3-5.1 mmol/L Complete Blood Count Auto Di ff Reviewed date:11/10/2024 04:43:39 PM Interpretation: Performing Lab:[facility], [address] [place] [phone] Notes/Report: White Blood Count 14.2 4.8-10.8 X10*3/uL [...] NRBC Abs Auto 0.000 0.0-0.012 X10*3/uL Comprehensive [place]. Panel Fa st Reviewed date:12/08/2024 12:40:38 PM Interpretation:12-08-2024 Performing Lab:[facility], [address] [place] [phone] Notes/Report: Sodium 136 135-145 mmol/L Potassium 4.7 [...] PROFILE Reviewed date:11/10/2024 12:58:08 PM Interpretation: Performing Lab:[facility], [address] [place] [phone] Notes/Report: Iron 49 45-160 mcg/dL Total Iron Binding Capacity 282 228-428 mcg/dL Percent Iron Saturation 17 15-50 % Unsaturated Iron Binding 233 Lipid Panel Reviewed date:11/10/2024 12:57:18 PM Interpretation: Performing Lab:[facility], [address] [place] [phone] Notes/Report: Triglycerides 81 <150 mg/dL Desirable Triglyceride: [...] Reviewed date:11/10/2024 01:00:52 PM Interpretation: Performing Lab:[address] [phone] Notes/Report: PSA,Total (Free>4and<10) 2.37 0.00-4.00 ng/mL A [...] Reviewed date:11/10/2024 04:33:57 PM Interpretation: Performing Lab:[address] [address] Notes/Report: Creatinine Urine 44.71 Microalbumin Urine 9.0 Microalbum/Creatinine Ratio Ur 20.1 <30 ug/mg cr Albumin/Creatinine Ratio Reference Ranges: Normal: < 30 ug/mg creatinine Microalbuminuria: 30 - 300 ug/mg creatinine Clinical Albuminuria: > 300 ug/mg creatinine Hemoglobin A1c Reviewed date:11/10/2024 12:57:28 PM Interpretation: Performing Lab:[address] [address] Notes/Report: Hemoglobin A1c % 6.5 <6.0 % [...] average glucose, using the formula of the V2Z-Cfdqwai Average Glucose study (ADAG), Diabetes Care, Vol.31,#8, Oct. 2007 UA ClnCatch+Micro w/rflx Cul t Reviewed date:11/11/2024 12:30:51 PM Interpretation: Performing Lab:[address] [address] Notes/Report: Urine, Clean Catch Color Urine Yellow Appearance Urine Clear PH 5.5 5.0-9.0 Glucose Urine UA Negative Negative mg/dL Urine Blood Negative Negative Specific [place] - Urine 1.010 1.005-1.025 Urine Protein Negative Neg-Trace mg/dL Urine Ketones Negative Negative mg/dL Nitrite Urine Negative Negative Leukocyte Esterase Urine Trace Negative RBC Urine 0-2 0-2 /HPF WBC Urine 0-5 0-5 /HPF Squamous Epithelial Cell Urine 0-2 0-2 /HPF Bacteria Urine None Seen None Seen Hyaline Casts Urine 0-2 0-2 /LPF Blood Urea Nitrogen Reviewed date:11/24/2024 01:52:49 PM Interpretation: Performing Lab:[facility], [address] [place] [phone] Notes/Report: Blood Urea Nitrogen 21 9-16 mg/dL Creatinine Reviewed date:11/24/2024 01:52:40 PM Interpretation: Performing Lab:[address] [address] Notes/Report: Creatinine 1.37 0.5-1.4 mg/dL Estimated Glomerular Filt Rate 50 Chronic Kidney Disease: Estimated GFR < 60 mL/min/1.73m2 Severe Kidney Disease: Estimated GFR < 15 mL/min/1.73m2 XR foot RT 2V Reviewed date:11/17/2024 04:42:26 PM Interpretation: Performing Lab: Notes/Report: [address] [address] XRay Report Signed Patient: Anthony Goodman MR#: [id number] : 1940 Acct:[id number] Age/Sex: 84 / M ADM Date: 11/17/24 Loc: HO.XRAY Attending Dr: Jordan Gabriel MD Ordering Physician: Jordan Gabriel MD Date of Service: 11/17/24 Procedure(s): XR foot RT 2V Accession Number(s): [id number] cc: Jordan Gabriel MD EXAMINATION: XR FOOT [...] 11/17/24 1137 DD/ 1115 TD/TT: 11/17/24 1123 Hob Machine Operator: [place] [address] XRay Report Signed Patient: Angelia Goodman Sr MR#: [id number] : 1940 Acct:[id number] Age/Sex: 84 / M ADM Date: 11/17/24 Loc: HO.XRAY Attending Dr: Jordan Gabriel MD Ordering Physician: Jordan Gabriel MD Date of Service: 11/17/24 Procedure(s): XR fernanda t RT 2V Accession Number(s): [id number] cc: Jordan Gabriel MD EXAMINATION: XR FOOT [...] 11/17/24 1137 DD/ 1115 TD/TT: 11/17/24 1123 Hob Machine Operator: Complete Blood Count Auto Di ff Reviewed date:04/07/2024 05:05:38 PM Interpretation: Performing Lab:[facility], [address] [place] [phone] Notes/Report: White Blood Count 7.3 4.8-10.8 X10*3/uL [...] Ferritin Reviewed date:04/07/2024 04:41:39 PM Interpretation: Performing Lab:[facility], [address] [place] [phone] Notes/Report: Ferritin 30 20-250 ng/mL Lactate Dehydrogenase Reviewed date:04/07/2024 05:05:11 PM Interpretation: Performing Lab:[facility], [address] [place] [phone] Notes/Report: Lactate Dehydrogenase 165 118-273 U/L Hold Gold Reviewed date:05/12/2024 12:08:08 PM Interpretation: Performing Lab:[facility], [address] [place] [phone] Notes/Report: Hold Gold See Note Specimen held untested for 24 hours; Call to request Chemistry testing. CT chest wo con Reviewed date:05/14/2024 08:55:12 AM Interpretation: Performing Lab: Notes/Report: [address] [place] [address] CT Scan Report Signed Patient: Anthony Goodman Sr MR#: [id number] : 1940 Acct:[id number] Age/Sex: 84 / M ADM Date: 05/13/24 Loc: HO.CT Attending Dr: Jannet Evans NP Ordering Physician: JANNET EVANS NP Date of Service: 05/13/24 Procedure(s): CT chest wo IV con Accession Number(s): [id number] cc: JANNET EVANS THEATRICAL PERFORMER; Jordan Gabriel MD Report Number: [id number]: Total DLP = 168.00 mGy-cm EXAMINATION: CT [...] by: Oseas Wallace MD 05/13/2024 11:42 AM [facility] Dictated By: Oseas Wallace MD Signed By: <Electronically signed by Oseas Wallace MD in OV> 05/13/24 1142 DD/ 1109 TD/TT: 05/13/24 1119 Hob Machine Operator: [address] [address] [address] Scan Report Signed Patient: Angelia Goodman Sr MR#: [id number] : 1940 Acct:[id number] Age/Sex: 84 / M ADM Date: 05/13/24 Loc: HO.CT Attending Dr: Jannet Evans NP Ordering Physician: JANNET EVANS NP Date of Service: 05/13/24 Procedure(s): CT [facility] wo IV con Accession Number(s): [id number] cc: JANNET EVANS NP ; Jordan Gabriel [...] by: Oseas Wallace MD 05/13/2024 11:42 AM [facility] Dictated By: Oseas Wallace MD Signed By: <Electronically signed by Oseas Wallace MD in OV> 05/13/24 1142 DD/ 1109 TD/TT: 05/13/24 1119 Hob Machine Operator: Complete Blood Count no Diff Reviewed date:07/07/2024 11:32:23 AM Interpretation: Performing Lab:[facility], [address] [place] [phone] Notes/Report: White Blood Count 6.7 4.8-10.8 X10*3/uL [...] Panel Reviewed date:07/07/2024 11:32:43 AM Interpretation: Performing Lab:[facility], [address] [place] [phone] Notes/Report: Sodium 138 135-145 mmol/L Potassium 4.6 [...] Ferritin Reviewed date:07/07/2024 11:31:21 AM Interpretation: Performing Lab:[facility], [address] [place] [phone] Notes/Report: Ferritin 45 20-250 ng/mL SARS-CoV2/FLU/RSV Reviewed date:07/13/2024 04:20:38 PM Interpretation: Performing Lab:[facility], [address] [place] [phone] Notes/Report: Influenza A PCR NEGATIVE Negative Influenza [...] by authorized laboratories. Testing performed on the [employer] GeneXpert utilizing real-time RT-PCR. All SARS CoV2 and positive influenza A/B results are reported to [facility]. XR chest 2V Reviewed date:07/13/2024 04:21:30 PM Interpretation: Performing Lab: Notes/Report: [facility] [facility] [place] [address] XRay Report Signed Patient: Anthony Goodman Sr MR#: [id number] : 1940 Acct:[id number] Age/Sex: 84 / M ADM Date: 07/11/24 [facility] Dr: Awilda ARTIS Ordering Physician: Awilda Lozoya Date of Service: 07/11/24 Procedure(s): XR chest 2V Accession Number(s): [id number] cc: Jordan Gabriel MD; Awilda Lozoya CLINICAL [...] 07/11/24 1036 DD/ 1035 TD/TT: 07/11/24 1035 Hob Machine Operator: [facility] [address] [place] [address] [place] [address] XRay Report Signed Patient: Angelia Goodman Sr MR#: [id number] : 1940 Acct:[id number] Age/Sex: 84 / M ADM Date: 07/11/24 Loc: HO.[facility] Attending Dr: Geoffrey ARTIS Ordering Physician: Awilda Lozoya Date of Service: 07/11/24 Procedure(s): XR chest 2V Accession Number(s): [id number] cc: Jordan Gabriel MD; wAilda Lozoya CLINICAL HISTORY: pain 2 view chest [...] 07/11/24 1036 DD/ 1035 TD/TT: 07/11/24 1035 Hob Machine Operator: Glucose, Whole Blood Reviewed date:07/23/2024 02:25:52 PM Interpretation: Performing Lab:[facility], [address] [place] [phone] Notes/Report: Glucose, Whole Blood 101 60-115 mg/dL METER # : [id number] Complete Blood Count Auto Di ff Reviewed date:10/06/2024 05:13:16 PM Interpretation: Performing Lab:[facility], [address] [place] [phone] Notes/Report: White Blood Count 7.4 4.8-10.8 X10*3/uL [...] Panel Reviewed date:10/06/2024 03:35:55 PM Interpretation: Performing Lab:[facility], [address] [place] [phone] Notes/Report: Sodium 142 135-145 mmol/L Potassium 5.4 [...] Ferritin Reviewed date:10/06/2024 12:19:56 PM Interpretation: Performing Lab:[facility], [address] [place] [phone] Notes/Report: Ferritin 28 20-250 ng/mL Haptoglobin Reviewed date:10/06/2024 12:19:09 PM Interpretation: Performing Lab:[facility], [address] [place] [phone] Notes/Report: Haptoglobin 200 40-268 mg/dL US venous duplex LE LT Reviewed date:11/02/2024 11:56:32 AM Interpretation: Performing Lab: Notes/Report: [address] [address] Ultrasound Report Signed Patient: Anthony Goodman Sr MR#: [id number] : 1940 Acct:[id number] Age/Sex: 84 / M ADM Date: 11/02/24 Loc: HO.US Attending Dr: Jordan Gabriel MD Ordering Physician: Jordan Gabriel MD Date of Service: 11/02/24 Procedure(s): US venous duplex LE LT Accession Number(s): [id number] cc: Jordan Gabriel MD EXAMINATION: US LOWER [...] 11/02/24 1128 DD/ 1106 TD/TT: 11/02/24 1114 Hob Machine Operator: [address] [address] Ultrasound Report Signed Patient: Angelia Goodman Sr MR#: [id number] : 1940 Acct:[id number] Age/Sex: 84 / M ADM Date: 11/02/24 Loc: .US Attending Dr: Jordan Gabriel MD Ordering Physician: Jordan Gabriel MD Date of Service: 11/02/24 Procedure(s): US christopher ous duplex LE LT Accession Number(s): [id number] cc: Jordan Gabriel MD EXAMINATION: US LOWE [...] 11/02/24 1128 DD/ 1106 TD/TT: 11/02/24 1114 Hob Machine Operator: Liver Panel Reviewed date:02/11/2025 07:50:12 AM Interpretation: Performing Lab:[address] [address] Notes/Report: Bilirubin Total 0.4 0.0-1.0 mg/dL Bilirubin Direct 0.2 0.0-0.5 mg/dL Aspartate Amino Transferase 24 5-37 U/L Alanine Aminotransferase 22 0-40 U/L Total Protein 7.2 6.5-8.0 g/dL Albumin Level 4.3 3.5-5.0 g/dL Alkaline Phosphatase 75 39-117 U/L TSH reflex Free T4 Reviewed date:02/11/2025 07:50:20 AM Interpretation: Performing Lab:[address] [place] [address] Notes/Report: TSH reflex Free T4 1.42 0.32-4.0 uIU/mL NT Pro B Type Natriuretic Pe pt Reviewed date:02/11/2025 12:41:49 PM Interpretation: Performing Lab:[address] [address] Notes/Report: NT Pro B Type Natriuretic Pept [...] date:02/11/2025 12:42:28 PM Interpretation: Performing Lab: Notes/Report: [address] [address] XRay Report Signed Patient: Anthony Goodman Sr MR#: [id number] : 1940 Acct:[id number] Age/Sex: 84 / M ADM Date: 02/10/25 Loc: CINDA Attending Dr: Darryl Padilla MD Ordering Physician: Darryl Padilla MD Date of Service: 02/10/25 Procedure(s): XR chest 2V Accession Number(s): [id number] cc: Jordan Gabriel MD; Darryl Padilla MD [...] 02/10/25 1447 DD/ 1431 TD/TT: 02/10/25 143 Hob Machine Operator: [place] [address] XRay Report Signed Patient: Angelia Goodman Sr MR#: [id number] : 1940 Acct:[id number] Age/Sex: 84 / M ADM Date: 02/10/25 Loc: HO.XRAY Attending Dr: Darryl Padilla MD Ordering Physician: Darryl Padilla MD Date of Service: 02/10/25 Procedure(s): XR chest 2V Accession Number(s): [id number] cc: Jordan Gabriel MD; Darryl Padilla MD [...] nary process. Electronically cole d by: Luci Maloen MD 02/10/2025 02:47 PM EST Dictated By: Luci Malone MD Signed By: <Electronically signed by Luci Malone MD in OV> 02/10/25 1447 DD/ 1431 TD/TT: 02/10/25 1435 Hob Machine Operator: DC cardiolite stress test Reviewed date:02/24/2025 01:36:18 PM Interpretation: Performing Lab: Notes/Report: [address] [address] Nuclear Medicine Report Signed Patient: Anthony Goodman Sr MR#: [id number] : 1940 Acct:[id number] Age/Sex: 84 / M ADM Date: 02/17/25 Loc: [facility] Attending Dr: Darryl Padilla MD Ordering Physician: Darryl Padilla MD Date of Service: 02/17/25 Procedure(s): DC cardiolite stress test Accession Number(s): [id number] cc: Jordan Gabriel MD; Darryl Padilla MD [...] 02/23/25 1555 DD/ 0952 TD/TT: 02/23/25 0830 Hob Machine Operator: [place] [address] Nuclear Medicine Report Signed Patient: Angelia Goodman MR#: [id number] : 1940 Acct:[id number] Age/Sex: 84 / M ADM Date: 02/17/25 Loc: .CARD Attending Dr: Darryl Padilla MD Ordering Physician: Darryl Padilla MD Date of Service: 02/17/25 Procedure(s): DC cardiolite stress test Accession Number(s): [id number] cc: Jordan Gabriel MD; Darryl Padilla MD [...] intravenously. Images were obtained using the S [employer] gamma camera interlaced with the gating device. [...] Todd Chacko MD 02/23/2025 03:55 PM EST Workstatio n: [id number] Dictated By: Todd Chacko MD Signed By: <Electronically signed by Todd Chacko MD in OV> 02/23/25 1555 DD/ 0952 TD/TT: 02/23/25 0830 Hob Machine Operator: Glucose, Whole Blood Reviewed date:03/02/2025 01:23:34 PM Interpretation: Performing Lab:[facility], [address] [place] [phone] Notes/Report: Glucose, Whole Blood 102 60-115 mg/dL METER # : [id number] Basic Metabolic Panel Reviewed date:03/11/2025 12:26:07 PM Interpretation: Performing Lab:[address] [address] Notes/Report: Sodium 141 135-145 mmol/L Potassium 4.7 3.3-5.1 mmol/L Chloride 106 96-108 mmol/L Carbon Dioxide 26 22-29 mmol/L Anion Gap 14 12-20 Blood Urea Nitrogen 27 9-16 mg/dL Creatinine 1.86 0.5-1.4 mg/dL Estimated Glomerular Filt Rate 35 Chronic Kidney Disease: Estimated GFR < 60 mL/min/1.73m2 Severe Kidney Disease: Estimated GFR < 15 mL/min/1.73m2 Glucose Random 114 60-115 mg/dL Calcium 9.4 8.4-10.2 mg/dL Reason For Referral Reason please eval and [...] day for 30 days 01/05/2025 Active Nystatin 055615 UNIT/GM APPLY DAILY TO S KIN TO AFFECTED AREA TWICE A DAY FOR 2 WEEKS for 15 Active Amiodarone HCl 200 MG 1 tablet Orally On ce a day Active Albuterol Sulfate HFA 108 (90 Base) MCG/ACT 1 puff as needed Inhalation every 4 hrs 12/08/2024 Active Furosemide 20 MG 1 tablet Orally Once a day for 90 days 12/08/2024 Active Ventolin HFA 108 (90 Base) MCG/ACT [...] HCl 500 MG TAKE 1 TABLET BY [facility] TWICE A DAY WITH MEALS for 90 Active Farxiga 5 MG 1 tablet Orally Once a day Active Xarelto 20 MG 1 tablet with food Orally Once a day Active Omeprazole 20 MG 1 capsule Orally Onc e a day Active FreeStyle Lite Test 0 as directed In Vit ro DX: E 11.9 use tot test blood sugar once a day for 30 days 01/17/2016 Active Lisinopril 20 MG TAKE 1 TABLET BY [facility] EVERY DAY for 90 Active Immunizations Vaccine Route Administration Date Status Comme nts Flu Vaccine Unknown 01/10/2012 Administered given at [facility] PPSV23 (Pnemovax) Unknown 01/10/2012 Administered given at [facility] Flu Vaccine Unknown 01/07/2014 Administered Flu Vaccine Unknown 12/31/2013 Administered received at [facility] Prevnar 13 IM Intramuscular 08/20/2014 Administered Flu Vaccine IM Intramuscular 12/22/2014 Administered pt re cieved high dose flu vaccine at [facility] in [place], Fluarix Quadrivalent Unknown 12/21/2015 Administered [facility] Shingles Unknown 01/26/2015 Administered [facility] Fluarix Quadrivalent IM Intramuscular 12/06/2016 Administe red PPSV23 (Pnemovax) IM Intramuscular 04/15/2017 Administered Influenza High Dose Unknown 12/17/2017 Administered [facility] Fluarix Quadrivalent IM Intramuscular 12/19/2018 Adminvidya pearl pt was given the vaccine at [facility] in [place]. Influenza High Dose IM Intramuscular 12/04/2019 Administer [...] Problem Status W/U Status Risk Notes Problem 55851413 Type 2 diabetes mellitus without complications (E11.9) Active confirmed Problem Atrial fibrillation (31682756) Atrial fibrillation (I48.91) Active confirmed Problem Gout attack (302374545) Gout attack (M10.9) Active confirmed Problem 673256159 Paroxysmal atria l fibrillation (I48.0) Active confirmed Problem 4883437 Panlobular emphy sema (J43.1) Active confirmed Problem 57253015 Essential hypert ension (I10) Active confirmed Problem 808763075 Low HDL (under 4 0) (E78.6) Active confirmed Problem 479317675 Lung nodule (R91.1) Active confirmed Problem 768011387 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) Active confirmed Problem Chronic obstructive pulmonary disease with acute lower respiratory infection (007326750) COPD (chronic obstructive pulmonary disease) with acute bronchitis (J44.0) Active confirmed Problem 76724110 Iron deficiency anemia, unspecified iron deficiency anemia type (D50.9) Active confirmed Problem Claudication (60146445) Claudication (I73.9) Active confirmed Problem 469243096 Adenoma (D36.9) Active confirmed Problem 1375196724853663 Acute idiopathi c gout involving toe of left foot (M10.072) Active confirmed Problem 97139482 Lymphadenopathy, mediastinal (R59.0) Active confirmed Problem 439646559 Rising PSA level (R97.20) Active confirmed Problem 697858791 History of calcu leonard of gallbladder (Z87.19) Active confirmed Problem 737371333 Pure hypercholesterolemia (E78.00) Active confirmed Problem Gout (68050466) Acute gout of le ft foot, unspecified cause (M10.9) Active confirmed Problem 47418307 Hip arthritis (M16.10) Active confirme d Problem 001930523 Adenocarcinoma o f lung, 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) Active confirmed Problem 049093011 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 Problem 081631470 Esophageal dysfu nction (K22.4) Active confirmed Problem 343254981 Lower esophageal ring (Schatzki) (K22.2) Active confirmed Vital Signs Heart Rate 60 /min 01/05/2025 weight is up 5 pounds since 12-08-24 Blood pressure diastolic 48 mm Hg 03/09/2025 alice ght is down 10 pounds since 01-05-25 Height 71 in 03/09/2025 weight is down 10 pounds since 01-05-25 Blood pressure systolic 152 mm Hg 03/09/2025 weig ht is down 10 pounds since 01-05-25 Weight 198 lbs 03/09/2025 weight is down 10 pounds since 01-05-25 BMI 27.61 kg/m2 03/09/2025 weight is down 10 pounds since 01-05-25 Encounters Encounter Location Date Provider Diagnosis Jordan Gabriel MD [address] [place] [address] [id number] 05/12/2024 Jordan Gabriel Type 2 diabetes mina itus without complications E11.9 and Pure hypercholesterolemia E78.00 Jordan Gabriel MD [address] [place] [id number] 10/09/2024 Jordan Gabriel Hyperkalemia E87.5 Jordan Gabriel MD [address] [place] [address] [id number] 11/10/2024 Jordan Gabriel Type 2 diabetes mina itus without complications E11.9 ; Pure hypercholesterolemia E78.00 ; Rising PSA level R97.20 ; Iron deficiency anemia, unspecified iron deficiency anemia type D50.9 and Essential hypertension I10 Jordan Gabriel MD [address] [place] [address] [id number] 11/24/2024 Jordan Gabriel Paroxysmal atrial fibrillation I48.0 Jordan Gabriel MD [address] [place] [address] [id number] 11/24/2024 Jordan Gabriel Encounter for administration of vaccine Z23 Jordan Gabriel MD [address] [place] [address] [id number] 05/19/2024 Jordan Gabriel Encounter for genera l adult medical examination with abnormal findings Z00.01 ; Esophageal dysfunction K22.4 ; Pure hypercholesterolemia E78.00 and Type 2 diabetes mellitus without complications E11.9 Jordan Gabriel MD [address] [place] [address] [id number] 07/24/2024 Jordan Gabriel Gout attack M10.9 Jordan Gabriel MD [address] [place] [address] [id number] 11/02/2024 Jordan Gabriel Gout attack M10.9 an d Leg edema R60.0 Jordan Gabriel MD [address] [place] [address] [id number] 11/09/2024 Jordan Gabriel Gout attack M10.9 an d Leg edema R60.0 Jordan Gabriel MD [address] [place] [address] [id number] 11/17/2024 Jordan Gabriel Foot pain, right M79 .671 ; Paroxysmal atrial fibrillation I48.0 ; Elevated BUN R79.9 ; Type 2 diabetes mellitus without complications E11.9 ; Pure hypercholesterolemia E78.00 ; Essential hypertension I10 ; Iron deficiency anemia, unspecified iron deficiency anemia type D50.9 and COPD (chronic obstructive pulmonary disease) with acute bronchitis J44.0 Jordan Gabriel MD [address] [place] [address] [id number] 12/08/2024 Jordan Gabriel Panlobular emphysema J43.1 ; Atrial fibrillation I48.91 and Edema R60.9 Jordan Gabriel MD [address] [place] [address] [id number] 01/05/2025 Jordan Gabriel Paroxysmal atrial fibrillation I48.0 ; Essential hypertension I10 ; COPD (chronic obstructive pulmonary disease) with acute bronchitis J44.0 and Edema R60.9 Jordan Gabriel MD [address] [place] [id number] 03/09/2025 Jordan Gabriel Blue nevus D22.9 ; A trial fibrillation I48.91 and Essential hypertension I10 Jordan Gabriel MD [address] [place] [address] [id number] 07/17/2024 Jordan Gabriel MD [address] [place] [address] [id number] 09/08/2024 Jordan Gabriel Assessments Encounter Date Diagnosis [...] being done today 11-02-2024 at 11am at [facility] , pending diagnostic testing 11/09/2024 Gout attack [...] controlled at present, will continue current regiment 03/09/2025 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, [place], [place], [id number], Provider Name:Jordan ward, 11/15/2025 07:15:00 AM, [address] [place] [address], [address] [facility], [place], [place], [id number], Provider Name:oJrdan ward, 11/22/2025 10:30:00 AM, [address] [place] [address], [address] [facility], [place], [place], [id number], Insurance Providers Payer Name Payer Address Payer Phone Subscriber Number Group Number Insured Name Patient Relationship to Insured Coverage Start Date Coverage End Date [employer] [address] [place] [address] [id number] Anthony Goodman Self - patient is the insured [employer] [address] [place], [place] [id number] [phone] [id number] Anthony Goodman Self - patient is [...]
== END 2025-03-16 15:06 | disposition home or self-care (01) ==
LOC: HO.HCS 14:26
PROVIDERS: PCP Internal Medicine; Visit Provider Nurse Practitioner Family
DX: I48.19 Other persistent atrial fibrillation (principal); I25.10 Atherosclerotic heart disease of native coronary artery without angina pectoris; I10 Essential (primary) hypertension; E78.5 Hyperlipidemia, unspecified
CPT/HCPCS: 93010; 99214; G2211

== ENCOUNTER → 2025-03-16 14:25 | Outpatient (BNVA) | payer MEDICARE, SELFPAY | PROVIDERS: PCP Internal Medicine; Visit Provider Nurse Practitioner Family | DX: I48.19 Other persistent atrial fibrillation (principal); I25.10 Atherosclerotic heart disease of native coronary artery without angina pectoris; I10 Essential (primary) hypertension; E78.5 Hyperlipidemia, unspecified | CPT/HCPCS: 93005; 99212 ==